=== PATIENT | female | born 1935 | race Caucasian/White ===

== ENCOUNTER 2020-02-25 08:59 | Inpatient (IN) | payer MEDICARE, OTHER, SELFPAY ==
[2020-02-25] VITALS (26 sets, daily range): BP systolic 105–178; BP diastolic 44–68; PULSE 57–89; RESP 15–23; TEMP 36.3–39.2; O2SAT 92–100; BMI 24.3
--- NOTE | 2020-02-25 09:21 | XR_ITS ---
WS: [id number] EXAM: AP CHEST: PORTABLE UPRIGHT DATE OF EXAM: 02/25/2020, 1005 hours COMPARISON: Chest x-ray from 01/28/2019. HISTORY: Patient is 84 years old with cough and dyspnea.. FINDINGS: The cardiac silhouette is normal in size. The mediastinal contours are similar. Calcified plaque i n the aorta. Hilar regions are normal. Small amount of peribronchial cuffing demonstrated.. The pul monary vascularity is normal. Chronic lung changes are seen. No area of consolidation. No noncalcifi ed pulmonary nodules. There is no effusion or pneumothorax. No acute bony abnormality is seen. Cee gical clips in the left axillary and overlying the left upper abdomen region. In correlation with a C T of the chest from 08/10/2016 these are in the extrathoracic soft tissues of the left breast region. XR/XR chest 1V portable [id number] IMPRESSION: Chronic lung changes. No acute pulmonary disease.
--- NOTE | 2020-02-25 09:21 | ECG_ITS ---
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 Measurements Intervals Valentine Rate: 87 P: 46 TX: 234 QRS: 18 QRSD: 99 T: 33 QT: 293 QTc: 353 Interpretive Statements SINUS RHYTHM WITH FIRST DEGREE AV BLOCK NONSPECIFIC ST & T-WAVE ABNORMALITY Compared to ECG 01/26/2019 15:58:53 First degree AV block now present T-wave abnormality now present Ventricular premature complex(es) no longer present Electronically Signed On 02-25-2020 13:29:03 CDT by Cristhian Harden M.D. [id number] f
--- NOTE | 2020-02-25 09:21 | CT_ITS ---
WS: [id number] CT ABDOMEN AND PELVIS WITH CONTRAST HISTORY: Fever, short of breath and abdominal pain. TECHNIQUE: Imaging performed of the abdomen and pelvis with IV contrast. Single phase imaging of the abdomen. Coronal and sagittal reformats are submitted. All CT scans at [facility] use at least one of these dose optimization techniques: automated exposure control; mA and/or kV adjustment per patient size (includes targeted exams where dose is matched to clinical indication); or iterativ e reconstruction. IV CONTRAST: Visipaque 320; 95 mL IV. Oral contrast: No DLP: 681.61 mGy.cm COMPARISON: 12/05/2017 Lower thorax: Mild dependent changes and subsegmental areas of atelectasis at the lung bases. Mild en largement of the heart chambers. Small hiatal hernia. Liver/biliary system: Normal size with no intrahepatic dilatation. Gallbladder: Mild distention of the gallbladder. No stones identified by CT. No wall thickening or in flammation. Pancreas: Mild atrophy of the pancreas with mild duct dilatation. No adjacent inflammation. Spleen: Normal. Adrenal glands: Normal. Right kidney: Diffuse renal atrophy with numerous renal cysts of various sizes. No obstruction. Left kidney: Diffuse renal atrophy with numerous renal cysts. Small extrarenal pelvis. No obstruction . Aorta: Normal. Lymphadenopathy: None. Free fluid: There is a small amount of free fluid in the pelvis. GI tract: There is no GI tract obstruction. The appendix is partially visualized and normal. There are several small foci of free air within the peritoneal cavity, greatest in the LEFT upper abd omen. There is a tract of air extending through the fundus of the stomach. Abdominal wall: Thinning of the anterior abdominal wall. Pelvis: Air in the urinary bladder. Urinary bladder is distended but no Paula catheter is present. Ma y be due to recent catheterization. There is also peritoneal dialysis catheter coiled in the pelvis. Bones: Advanced degenerative changes in the lumbar spine. Prior fixation hardware from L4 to S1 bilat erally. Prior LEFT hip arthroplasty. Notified Obinna Fletcher DO at 02/25/2020 11:[address]/CT abdomen pelvis w con* [id number] IMPRESSION: 1. Small amount of intraperitoneal free air left upper abdomen suspicious for perforation at the fundus of the stomach. Patient does have peritoneal dialysi s catheter in the area could potentially be from manipulation of the catheter b ut favor visceral perforation. 2. Small amount of free fluid in the pelvis. 3. Bilateral renal atrophy with numerous bilateral renal cysts. 4. Dialysis catheter coiled in the pelvis. 5. Air in the urinary bladder. May be due to recent instrumentation or cystiti s.
--- NOTE | 2020-02-25 09:23 | W.ED.SOB ---
HPI - SOB/Dyspnea General: Chief Complaint: Shortness of Breath/Dyspnea Stated Complaint: FEVER, SOB NECK PAIN Time Seen by Provider: 02/25/20 09:06 History of Present Illness: HPI Narrative: 84-year-old female who presents emergency room from a local assisted living care. She was nauseated sick to her stomach with mild abdominal pain and vomiting along with a fever. She arrived here temperatures up to 102. She has also had a little bit of a cough. She is not had any bloody diarrhea or bloody emesis. She has has end-stage renal disease and has been using peritoneal dialysis. She still does make some urine although she has not had any dysuria urgency or frequency. She is not had any recent hospitalization she has been quarantined at the [facility] however 1 week ago they began allowing visitors. MD elicited complaint: cough Pertinent past history: other (End-stage renal disease with peritoneal dialysis) Onset (ago): hour(s) Timing: constant Severity: moderate Exacerbating factors: exertion and coughing Relieving factors: nothing Associated symptoms: Reports abdominal pain, cough, fever(s), nausea and vomiting; Deny chest congestion, chest pain, diaphoresis, dizziness, extremity pain, hemoptysis, lightheadedness, myalgias, orthopnea, palpitations, paresthesias, polydipsia, polyuria, rash, sense of impending doom or syncope Treatment prior to arrival: none Review of Systems Const: Reports: fever(s); Denies: diaphoresis ENMT: Denies: throat pain, ear or mastoid pain, nasal discharge or nasal congestion Card: Denies: chest pain, palpitations, lightheadedness, syncope or orthopnea Resp: Denies: hemoptysis or chest congestion GI: Reports: abdominal pain, nausea and vomiting : Denies: flank pain, difficulty voiding, dysuria, urinary frequency or urinary urgency Musc: Denies: extremity pain Skin/Breast: Denies: rash or pruritus Neuro: Denies: dizziness Endo: Denies: polyuria or polydipsia PFS ED PFSH: Medical History Anemia of chronic disease Anxiety and depression DDD (degenerative disc disease) Diastolic CHF ESRD (end stage renal disease) On Peritoneal dialysis Fibromyalgia GERD (gastroesophageal reflux disease) History of breast cancer Previously followed by Dr. Santoyo History of pulmonary embolus (PE) 08/2016 History of stroke 11/14/16 Hyperlipidemia Hypertension Lumbar spinal stenosis Osteoarthritis Paroxysmal A-fib Peritoneal dialysis catheter in place Restrictive lung disease Surgical History History of back surgery History of esophagogastroduodenoscopy (EGD) 08/03/17 mild gastritis and duodenitis History of hemiarthroplasty of left hip 11/18/18: Dr. Mendoza History of hysterectomy History of lumpectomy of left breast History of right cataract surgery Family History Other Cancer Denies family history of Anesthesia complication Bleeding disorder Social History Smoking and tobacco status: never smoked Second hand smoke exposure: No Alcohol intake: never Adopted: No Caregiver/support person: Yes Lives independently: Yes Housing: Assisted Living Facility Marital status: Marital status details: with dementia Additional social history: FULL CODE DISCUSSED WITH PATIENT ON 02/04/20 Physical Exam Const: COMMON NORMALS: no acute distress GENERAL APPEARANCE: cooperative and comfortable ORIENTATION/CONSCIOUSNESS: Yes awake, Yes oriented to person, Yes oriented to place and Yes oriented to time HENMT: COMMON NORMALS: normocephalic and atraumatic HEAD & SCALP: normocephalic and atraumatic Eye: COMMON NORMALS: Equal, round and reactive pupils present, EOMs intact bilaterally, conjunctivae normal and no scleral icterus CONJUNCTIVA: Yes conjunctivae normal PUPIL: Yes Equal, round and reactive pupils present Neck/C-Spine: COMMON NORMALS: full ROM, no lymphadenopathy, supple and no JVD Lymph: LYMPHATIC: no lymphadenopathy noted and no lymphedema noted Resp: COMMON NORMALS: normal respiratory effort, No retractions, No use of accessory muscles and clear to auscultation bilaterally AUSCULTATION: clear to auscultation bilaterally Cardio: COMMON NORMALS: no JVD, regular rate, regular rhythm and No murmurs present (Cardio) RATE: regular rate RHYTHM: regular rhythm GI: COMMON NORMALS: Soft to palpation and No hepatosplenomegaly present AUSCULTATION: Yes normoactive bowel sounds PALPATION: Yes Soft to palpation, Yes Tenderness to palpation present (GI), No Guarding due to palpation present (GI) (No rebound.) and Yes No hepatosplenomegaly present Extremity: COMMON NORMALS: normal to inspection, capillary refill normal, no clubbing, cyanosis or edema, no calf tenderness and no pedal edema Neuro: SENSORIUM/ORIENTATION: Yes oriented to person, Yes oriented to place and Yes oriented to time Skin: COMMON NORMALS: no rashes or lesions noted GENERAL SKIN EXAM: no rashes or lesions noted Course Vital Signs: Vital signs: Vital Signs Temperature 100.9 F H 02/26/20 03:17 Pulse Rate 62 02/26/20 06:00 Respiratory Rate 36 H 02/26/20 06:00 Blood Pressure 117/54 02/26/20 06:00 Pulse Oximetry 98 02/26/20 06:00 MDM - SOB/Dyspnea MDM Narrative: Medical decision making narrative: Initial CT of the abdomen shows small amounts of free air within the abdomen. Discussed with Dr. Castaneda also because Dr. Carias. Dr. Carias has asked that we repeat the abdominal CT with p.o. contrast which again showed free small amounts of free air but no perforation in the stomach. Will admit the patient to the ICU IV antibiotics been started Dr. Avendaño and Dr. Castaneda is seen the patient in the emergency room. Lab Data: Labs: Lab Results 02/25/20 02/25/20 02/25/20 Range/Units 08:45 08:45 09:24 WBC 5.7 (4.0-10.0) 10^3/ uL RBC 3.37 L (4.1-5.3) 10^6/u L Hgb 11.6 (11.5-15.3) g/dL Hct 35.3 L (37.0-47.0) % MCV 104.7 H (81-99) fL MCH 34.4 H (28.0-34.0) pg MCHC 32.9 (30.0-36.0) g/dL RDW 13.6 (12.1-15.1) % Plt Count 156 (130-400) 10^3/c mm MPV 10.5 H (7.4-10.4) fL Neut % (Auto) 92.3 % Lymph % (Auto) 4.4 % Mcdowell % (Auto) 0.5 % Eos % (Auto) 1.9 % Baso % (Auto) 0.5 % Neut # (Auto) 5.25 (1.8-7.7) 10^3/u L Lymph # (Auto) 0.3 L (0.8-4.8) 10^3/u L Mcdowell # (Auto) 0.0 L (0.2-0.9) 10^3/u L Eos # (Auto) 0.1 (0.0-0.8) 10^3/u L Baso # (Auto) 0.0 (0.0-0.1) 10^3/u L Nucleated RBC % (a uto) 0 % Nucleated RBCs # 0.0 /100WBC Specimen Type Sample Site ABG pH (7.35-7.45) ABG pCO2 (35-45) mmHg ABG pO2 (80.0-100.0) mmH g ABG HCO3 (22-26) mmol/L ABG O2 Saturation ABG Base Excess (-2.0-2.0) mmol/ L Eddi Test Hematocrit (37-47) % Hgb O2 Saturation (95-100) % Carboxyhemoglobin (0.4-20.1) %THgb Methemoglobin (0.4-1.5) % Total Hemoglobin (12-16) g/dL Ionized Calcium (1.1-1.4) mmol/L O2 Delivery Device O2 Liters/Min % Fabrication Supervisor ID Sodium 134 L (136-145) mmol/L Potassium 3.7 (3.5-5.1) mmol/L Chloride 92 L (98-107) mmol/L Carbon Dioxide 32 H (22-29) mmol/L Anion Gap 13.7 (5-19) BUN 45 H (8-23) mg/dL Creatinine 4.5 H (0.5-0.9) mg/dL GFR Calculation Not Reportable Glucose 116 H (65-115) mg/dL Calculated Osmolal ity 277 L (285-295) mOsm/k g Lactic Acid (0.5-2.2) mmol/L Calcium 9.0 (8.5-10.5) mg/dL Magnesium 1.8 (1.7-2.3) mg/dL Total Bilirubin 0.4 (0.15-1.2) mg/dL AST 15 (0-32) U/L ALT 12 (0-33) U/L Alkaline Phosphata se 59 (35-105) IU/L Creatine Kinase 109 (26-192) U/L Total Protein 6.7 (6.6-8.7) g/dL Albumin 3.6 (3.5-5.2) g/dL Globulin 3.1 (1.3-4.6) g/dL Lipase 24 (13-60) U/L Urine Color Yellow (Yellow) Urine Appearance Cloudy (CLEAR) Urine pH 5 (5-7) Ur Specific Gravit y 1.010 (1.005-1.030) Urine Protein Trace (Negative) Urine Glucose (UA) Norm (Normal) Urine Ketones Negative (Negative) Urine Blood Neg (Negative) Urine Nitrate Negative (Negative) Urine Bilirubin Neg (NEGATIVE) Urine Urobilinogen Norm (Negative) mg/dL Ur Leukocyte Jennifer ase 2+ H (Negative) Urine RBC 0-4 H (0-2) /hpf Urine WBC 55-80 H (0-5) /hpf Ur Squamous Epith Cells 5-10 H (0-5) Ur Transition Epit h Cell 0-4 /hpf Amorphous Sediment Not Reportable Urine Bacteria 3+ H (NONE) SARS-CoV-2 Ag (Rap id) (Negative) 02/25/20 02/25/20 02/25/20 Range/Units 09:27 09:28 09:30 WBC (4.0-10.0) 10^3/ uL RBC (4.1-5.3) 10^6/u L Hgb (11.5-15.3) g/dL Hct (37.0-47.0) % MCV (81-99) fL MCH (28.0-34.0) pg MCHC (30.0-36.0) g/dL RDW (12.1-15.1) % Plt Count (130-400) 10^3/c mm MPV (7.4-10.4) fL Neut % (Auto) % Lymph % (Auto) % Mcdowell % (Auto) % Eos % (Auto) % Baso % (Auto) % Neut # (Auto) (1.8-7.7) 10^3/u L Lymph # (Auto) (0.8-4.8) 10^3/u L Mcdowell # (Auto) (0.2-0.9) 10^3/u L Eos # (Auto) (0.0-0.8) 10^3/u L Baso # (Auto) (0.0-0.1) 10^3/u L Nucleated RBC % (a uto) % Nucleated RBCs # /100WBC Specimen Type Arterial Sample Site Radial, left ABG pH 7.43 (7.35-7.45) ABG pCO2 47.0 H (35-45) mmHg ABG pO2 135.0 H (80.0-100.0) mmH g ABG HCO3 31.5 H (22-26) mmol/L ABG O2 Saturation 99.3 ABG Base Excess 6.3 H (-2.0-2.0) mmol/ L Eddi Test Pos Hematocrit 33.7 L (37-47) % Hgb O2 Saturation 97.6 (95-100) % Carboxyhemoglobin 0.8 (0.4-20.1) %THgb Methemoglobin 1.0 (0.4-1.5) % Total Hemoglobin 11.0 L (12-16) g/dL Ionized Calcium 1.1 (1.1-1.4) mmol/L O2 Delivery Device Nc O2 Liters/Min 2.0 % Fabrication Supervisor ID Anonymous Sodium 134.0 (136-145) mmol/L Potassium 3.0 L (3.5-5.1) mmol/L Chloride (98-107) mmol/L Carbon Dioxide (22-29) mmol/L Anion Gap (5-19) BUN (8-23) mg/dL Creatinine (0.5-0.9) mg/dL GFR Calculation Glucose 103.0 (65-115) mg/dL Calculated Osmolal ity (285-295) mOsm/k g Lactic Acid 1.0 (0.5-2.2) mmol/L Calcium (8.5-10.5) mg/dL Magnesium (1.7-2.3) mg/dL Total Bilirubin (0.15-1.2) mg/dL AST (0-32) U/L ALT (0-33) U/L Alkaline Phosphata se (35-105) IU/L Creatine Kinase (26-192) U/L Total Protein (6.6-8.7) g/dL Albumin (3.5-5.2) g/dL Globulin (1.3-4.6) g/dL Lipase (13-60) U/L Urine Color (Yellow) Urine Appearance (CLEAR) Urine pH (5-7) Ur Specific Gravit y (1.005-1.030) Urine Protein (Negative) Urine Glucose (UA) (Normal) Urine Ketones (Negative) Urine Blood (Negative) Urine Nitrate (Negative) Urine Bilirubin (NEGATIVE) Urine Urobilinogen (Negative) mg/dL Ur Leukocyte Jennifer ase (Negative) Urine RBC (0-2) /hpf Urine WBC (0-5) /hpf Ur Squamous Epith Cells (0-5) Ur Transition Epit h Cell /hpf Amorphous Sediment Urine Bacteria (NONE) SARS-CoV-2 Ag (Rap id) Negative (Negative) Discharge Plan Discharge Admit Provider: Mirian Castaneda Condition: Stable Discharge Date/Time: 02/25/20 14:36 Coding Level of Care Code ED Mitochondrial Disorders Counselor for Chg Fwd Exam Comprehensive
[2020-02-25 09:39] LABS: Basophils % 0.5 %; Eosinophils # 0.1 10^3/uL (0.0-0.8); Eosinophils % 1.9 %; Hematocrit 35.3 % (37.0-47.0); Hemoglobin 11.6 g/dL (11.5-15.3); Lymphocytes # 0.3 10^3/uL (0.8-4.8); Lymphocytes % 4.4 %; Mean Corpuscular HGB Conc 32.9 g/dL (30.0-36.0); Mean Corpuscular Hemoglobin 34.4 pg (28.0-34.0); Mean Corpuscular Volume 104.7 fL (81-99); Mean Platelet Volume 10.5 fL (7.4-10.4); Monocytes % 0.5 %; Neutrophils # 5.25 10^3/uL (1.8-7.7); Neutrophils % 92.3 %; Nucleated Red Blood Cells % 0 %; Platelet Count 156 10^3/cmm (130-400); Red Blood Count 3.37 10^6/uL (4.1-5.3); Red Cell Distribution Width 13.6 % (12.1-15.1); White Blood Count 5.7 10^3/uL (4.0-10.0)
[2020-02-25 09:44] LABS: ABG PH Result 7.43 (7.35-7.45); Arterial Blood Gas Hematocrit 33.7 % (37-47); Base Excess ABG 6.3 mmol/L (-2.0-2.0); Blood Gas Allen Test Pos; Blood Gas Operator Identificat Anonymous; Blood Gas Sample Site Radial, left; Blood Gas Sample Type Arterial; Carboxyhemoglobin 0.8 %THgb (0.4-20.1); HCO3 ABG 31.5 mmol/L (22-26); HGB O2 Sat 97.6 % (95-100); Ionized Calcium Level - ABG 1.1 mmol/L (1.1-1.4); Oxygen Device NC; Oxygen Saturation ABG 99.3
[2020-02-25 09:46] LABS: Alanine Aminotransferase 12 U/L (0-33); Albumin Level 3.6 g/dL (3.5-5.2); Alkaline Phosphatase 59 IU/L (35-105); Anion Gap 13.7 (5-19); Aspartate Amino Transferase 15 U/L (0-32); Blood Urea Nitrogen 45 mg/dL (8-23); Carbon Dioxide 32 mmol/L (22-29); Chloride 92 mmol/L (98-107); Creatine Phosphokinase 109 U/L (26-192); Globulin 3.1 g/dL (1.3-4.6); Glucose 116 mg/dL (65-115); Lipase 24 U/L (13-60); Magnesium 1.8 mg/dL (1.7-2.3); Osmolality Calculated 277 mOsm/kg (285-295); Potassium 3.7 mmol/L (3.5-5.1); Sodium 134 mmol/L (136-145); Total Bilirubin 0.4 mg/dL (0.15-1.2); Total Protein 6.7 g/dL (6.6-8.7)
[2020-02-25] MEDS: acetaminophen 500 mg Tablet 1000 MG PO (09:47)
[2020-02-25] MEDS: ondansetron 2 mg/ML SDV 2 mL 4 MG IVP (09:47)
[2020-02-25 09:54] LABS: Add Urine Microscopic? YES; Bilirubin Urine Neg (NEGATIVE); Blood Urine Neg (Negative); Glucose Urine UA Norm (Normal); Ketones Urine Negative (Negative); Leukocyte Esterase Urine 2+ (Negative); Nitrate Urine Negative (Negative); Protein Urine Trace (Negative); Urine Appearance Cloudy (CLEAR); Urine Color Yellow (Yellow); Urobilinogen Urine Norm (Negative); pH Urine 5 (5-7)
[2020-02-25 09:55] LABS: RBC Urine 0-4 /hpf (0-2)
[2020-02-25 09:56] LABS: Bacteria Urine 3+; Transitional Epi Cells Urine 0-4 /hpf; WBC Urine 55-80 /hpf (0-5)
[2020-02-25 09:57] LABS: Add Urine Culture? Yes
[2020-02-25 10:24] LABS: SARS Covid-2 Antigen Negative (Negative)
[2020-02-25] MEDS: iodixanol 320 mg/mL 100mL Btl IV (10:35)
--- NOTE | 2020-02-25 11:49 | CT_ITS ---
WS: [id number] CT ABDOMEN WITH oral CONTRAST HISTORY: perforation stomach Contiguous single phase 5 mm axial imaging performed to the abdomen. Oral contrast has been provided. Coronal and sagittal reformats are submitted. All CT scans at [facility] use at least on e of these dose optimization techniques: automated exposure control; mA and/or kV adjustment per carlos ent size (includes targeted exams where dose is matched to clinical indication); or iterative reconst ruction. CONTRAST: No additional IV contrast given. DLP: 452.46 mGy.cm COMPARISON: Study earlier the same day. Lower thorax: Dependent changes and atelectasis at the lung bases. Additional imaging was obtained to evaluate for possible contrast extravasation from the stomach. The re is good distention of the stomach with oral contrast. No active contrast extravasation from the st omach. There are still a few small foci of air in the LEFT upper abdomen but they have not increased in number. CT/CT abdomen wo con [id number] IMPRESSION: 1. No active extravasation of oral contrast from the stomach. 2. There is still a few small foci of air in the LEFT upper abdomen. Visceral perforation is likely, the exact etiology is not certain but thought to be the stomach.
[2020-02-25] MEDS: iohexol 300 mg/mL 50 mL Btl PO (12:29)
--- NOTE | 2020-02-25 14:02 | PM.HP ---
Providers/Chief Complaint Admitting Physician: Mirian Castaneda DO Primary Care Provider: Gunnar Winn DO Chief Complaint: FEVER, SOB NECK PAIN History of Present Illness Milla Thomas is a 84 year old female with a past medical history of end-stage renal disease on peritoneal dialysis, hypertension, chronic pain on daily opioids and GERD that presented to the emergency department today from the assisted living facility due to increasing abdominal pain, generalized malaise and fever. Patient reported that her symptoms started yesterday she stated that she began having abdominal pain as well as nausea vomiting. She stated she continued to have vomiting this morning but due to inability to keep down any oral fluids or food she was having dry heaves. Patient was noted to have a temperature of 99 degrees [facility] the [facility], 102 ?F while patient was in the emergency department. She is on peritoneal dialysis and last dialysis session was last night. Patient reports some vague abdominal discomfort mostly in the lower abdomen, centrally located. Reports that she was initially having trouble with constipation was given MiraLAX yesterday and then has had diarrhea since that time. She denies any sick contacts, has recently been on quarantine at the assisted living facility as everyone has been tested for COVID, her testing returned negative last week. Only visitor in the past week has been her son whom she visited with outside. Patient was seen and evaluated in the emergency department noted to have concern for free air in the abdomen, general surgeon was consulted. Patient was noted to have a fever of 102 ?F with concern for urinary tract infection but also concern for the possibility of peritonitis, given Rocephin. Review of Systems Const: Reports: fever(s), body aches and malaise; Denies: chills Eyes: Denies: change in vision ENMT: Denies: nasal congestion Card: Denies: chest pain, palpitations or edema Resp: Denies: dyspnea, productive cough or hemoptysis GI: Reports: abdominal pain, nausea, vomiting and diarrhea; Denies: constipation, hematochezia or melena : Reports: dysuria; Denies: hematuria Musc: Denies: extremity pain or muscle cramps Skin/Breast: Denies: rash or new lesions Neuro: Denies: headache(s) or dizziness Psych: Denies: anxiety or depression Endo: Denies: polyuria or hot flashes Tino/Lymph: Denies: easy bruising or easy bleeding Medications/Allergies Home Medications Medication Instructions Recorded Confirmed Last Taken Type acetaminophen 325 mg tablet 650 mg PO Q4H PRN 11/13/19 02/25/20 Unknown History alprazolam 0.25 mg tablet 0.25 mg PO BEDTIME PRN 11/13/19 02/25/20 02/24/20 History bisacodyl 10 mg rectal suppository 10 mg IA DAILY PRN 11/13/19 02/25/20 Unknown History bumetanide 1 mg tablet 2 mg PO BID 11/13/19 02/25/20 02/24/20 History carisoprodol 350 mg tablet 350 mg PO BID PRN tab 11/13/19 02/25/20 02/24/20 History carvedilol 25 mg tablet 50 mg PO BID 11/13/19 02/25/20 02/24/20 History citalopram 10 mg tablet 10 mg PO DAILY 11/13/19 02/25/20 02/24/20 History clonidine HCl 0.1 mg tablet 0.1 mg PO DAILY PRN tab 11/13/19 02/25/20 Unknown History docusate sodium 100 mg capsule 200 mg PO BEDTIME 11/13/19 02/25/20 02/24/20 History ipratropium 0.5 mg-albuterol 3 mg 3 ml INHALATION Q4H PRN 11/13/19 02/25/20 Unknown History (2.5 mg base)/3 mL nebulization soln isosorbide mononitrate 30 mg 30 mg PO DAILY 11/13/19 02/25/20 02/24/20 History tablet,extended release 24 hr nystatin 100,000 unit/gram topical 1 applic TOPICAL BID 11/13/19 02/25/20 Unknown History powder pantoprazole 40 mg tablet,delayed 40 mg PO BID tab 11/13/19 02/25/20 02/24/20 History release polyethylene glycol 3350 17 17 gm PO DAILY 11/13/19 02/25/20 02/24/20 History gram/dose oral powder potassium chloride 20 mEq 20 meq PO BID 11/13/19 02/25/20 02/24/20 History tablet,extended release promethazine 12.5 mg rectal 12.5 mg IA Q8H PRN 11/13/19 02/25/20 Unknown History suppository verapamil 180 mg tablet,extended 180 mg PO DAILY 11/13/19 02/25/20 02/24/20 History release hydrocodone 7.5 mg-acetaminophen 1 tab PO Q4H PRN 30 Days #180 tab 02/22/20 02/25/20 Unknown Rx 325 mg tablet oxycodone 20 mg tablet,crush 20 mg PO Q12H 30 Days #60 tab 02/22/20 02/25/20 02/24/20 Rx resistant,extended release 12 hr Lactobac. rhamnosus GG-inulin 1 cap PO DAILY 02/25/20 02/25/20 02/24/20 History [[facility]] Tucks Pads See Rx Instructions .ROUTE .COMPLEX 02/25/20 02/25/20 Unknown History apixaban [Eliquis] 2.5 mg PO BID 02/25/20 02/25/20 02/24/20 History metolazone 5 mg PO EVERY OTHER DAY 02/25/20 02/25/20 02/24/20 History ondansetron 8 mg PO TID 02/25/20 02/25/20 02/25/20 08:00 History phenyleph-shark oil-cocoa butr 1 supp IA PRN 02/25/20 02/25/20 Unknown History [Hemorrhoidal] simethicone See Rx Instructions .ROUTE .COMPLEX 02/25/20 02/25/20 Unknown History sodium phosphates [Enema] 118 ml IA DAILY PRN 02/25/20 02/25/20 Unknown History sorbitol See Rx Instructions .ROUTE .COMPLEX 02/25/20 02/25/20 Unknown History vit B comp no.9-chqnj-C-biotin 1 tab PO DAILY 02/25/20 02/25/20 02/24/20 History [[facility]] Allergies Allergy/AdvReac Type Severity Reaction Status Date / Time amitriptyline [From Elavil] Allergy Unknown Unknown Verified 02/25/20 14:08 cyclobenzaprine Allergy Unknown Unknown Verified 02/25/20 14:08 [From Flexeril] doxycycline Allergy Unknown Unknown Verified 02/25/20 14:08 Penicillins Allergy Unknown Unknown Verified 02/25/20 14:08 pentazocine [From Talwin] Allergy Unknown Unknown Verified 02/25/20 14:08 pregabalin [From Lyrica] Allergy Unknown Unknown Verified 02/25/20 14:08 tizanidine Allergy Unknown Unknown Verified 02/25/20 14:08 morphine Allergy Unknown Verified 02/25/20 14:08 PFSH Acute PFSH: Medical History Anemia of chronic disease Anxiety and depression DDD (degenerative disc disease) Diastolic CHF ESRD (end stage renal disease) On Peritoneal dialysis Fibromyalgia GERD (gastroesophageal reflux disease) History of breast cancer Previously followed by Dr. Santoyo History of pulmonary embolus (PE) 08/2016 History of stroke 11/14/16 Hyperlipidemia Hypertension Lumbar spinal stenosis Osteoarthritis Paroxysmal A-fib Peritoneal dialysis catheter in place Restrictive lung disease Surgical History History of back surgery History of esophagogastroduodenoscopy (EGD) 08/03/17 mild gastritis and duodenitis History of hemiarthroplasty of left hip 11/18/18: Dr. Mendoza History of hysterectomy History of lumpectomy of left breast History of right cataract surgery Family History Other Cancer Denies family history of Anesthesia complication Bleeding disorder Social History Smoking and tobacco status: never smoked Second hand smoke exposure: No Alcohol intake: never Adopted: No Caregiver/support person: Yes Lives independently: Yes Housing: Assisted Living Facility Marital status: Marital status details: with dementia Additional social history: FULL CODE DISCUSSED WITH PATIENT ON 02/04/20 Vitals/I&O/Wt Last Vital Signs Temp 100.2 F H 02/25/20 10:31 Pulse 73 02/25/20 13:16 Resp 20 H 02/25/20 13:16 BP 126/63 02/25/20 13:16 Pulse Ox 94 02/25/20 13:16 Weight last 48 hrs Weight 64.41 kg Physical Exam Const: COMMON NORMALS: patient oriented x3 and alert GENERAL APPEARANCE: cooperative ORIENTATION/CONSCIOUSNESS: Yes awake, Yes oriented to person, Yes oriented to place and Yes oriented to time HENMT: COMMON NORMALS: normocephalic and atraumatic HEAD & SCALP: normocephalic and atraumatic Eye: COMMON NORMALS: Equal, round and reactive pupils present PUPIL: Yes Equal, round and reactive pupils present Neck/C-Spine: COMMON NORMALS: supple GENERAL: Yes normal visual inspection Resp: COMMON NORMALS: normal respiratory effort and clear to auscultation bilaterally EFFORT & INSPECTION: Yes able to speak in complete sentences AUSCULTATION: clear to auscultation bilaterally, no rhonchi and no wheezes Cardio: COMMON NORMALS: regular rate, regular rhythm and No murmurs present (Cardio) RATE: regular rate RHYTHM: regular rhythm GI: OTHER: Soft, tenderness to palpation in the suprapubic region, no guarding or rigidity, normal bowel sounds, PD catheter in place with no surrounding erythema, no appreciable drainage : COMMON NORMALS: Yes no CVA tenderness BLADDER/KIDNEY EXAM: Yes no CVA tenderness Back/Pelvis: COMMON NORMALS: no CVA tenderness Extremity: COMMON NORMALS: no calf tenderness NARRATIVE EXTREMITY EXAM: 1+ pitting edema in the lower extremities bilaterally, negative Homans sign in the lower extremities bilaterally Neuro: COMMON NORMALS: patient oriented x3, CN's II-XII intact bilaterally, moves all extremities and no focal motor deficits SENSORIUM/ORIENTATION: Yes alert, Yes oriented to person, Yes oriented to place and Yes oriented to time SPEECH: speech normal Psych: COMMON NORMALS: mental status grossly normal and cooperative Skin: COMMON NORMALS: no rashes or lesions noted GENERAL SKIN EXAM: no rashes or lesions noted Urinary Catheter Management^: Paula: Cath Placed During This Visit: no Reason for Continuing Indwelling Catheter: Other Data : 02/25/20 08:45 02/25/20 08:45 Micro: Microbiology 02/25/20 09:27 Blood Culture - Preliminary Blood SPECIMEN COLLECTED 02/25/20 09:27 Blood Culture - Preliminary Blood SPECIMEN COLLECTED A&P Assessment and plan (1) Abdominal pain: Initial CT scan showing free air in the abdomen, this could be due to peritoneal dialysis, general surgeon consulted, appreciate recommendations and assistance in patient's care. Gastrografin study showed no extravasation of contrast, however concerned that may have visceral perforation, will follow up with surgical recommendations. Continue close monitoring in the ICU until that time Patient has suprapubic tenderness with concern for acute cystitis in the setting of end-stage renal disease on peritoneal dialysis. Initially on presentation had thousand milliliters of fluid in her bladder. History of Klebsiella, Proteus and E. coli, and enterococcus and prior urine cultures. Given Rocephin in the ED, will start on Primaxin. Question of peritonitis, orders for fluid collection and culture Status: Acute (2) Acute cystitis: Continue with IV antibiotics, plan as above At thousand milliliters of urine in the bladder at time of admission to the ED, Paula catheter placed Status: Acute (3) ESRD (end stage renal disease): On peritoneal dialysis Nephrology consulted, appreciate recommendations and assistance in patient's care Status: Acute (4) Diastolic CHF: Without acute exacerbation, continue close monitoring with strict intake and output as well as daily weights Status: Acute (5) Fibromyalgia: With chronic pain on daily opioids, continue home medications Status: Acute (6) Lumbar spinal stenosis: Status: Acute (7) Anxiety and depression: Status: Acute Additional A&P Information History of paroxysmal atrial fibrillation: Holding home Eliquis, holding all anticoagulation until surgical evaluation, then start on anticoagulation as deemed appropriate by surgery services History of pulmonary embolism in 2017 Prior history of CVA Hypertension: Blood pressures remained stable at this time Hyperlipidemia Restrictive lung disease DVT prophylaxis: SCDs, no pharmacologic prophylaxis at this time until surgical evaluation Diet: N.p.o. until surgical evaluation CODE STATUS: Full code Attestations Medical Necessity Statement*: Patient requires hospitalization due to fever with concern for abdominal pain acute cystitis with intra-abdominal air and question of peritonitis requiring IV antibiotics. 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
--- NOTE | 2020-02-25 14:05 | PM.CONSULT ---
Providers/Reason For Consult Consulting Physican/Specialty*: Ruslan Carias MD Reason for Consult*: Abdominal pain with concern of perforated viscus Attending Physician: Mirian Castaneda DO Primary Care Provider: Gunnar Winn DO History of Present Illness History of Present Illness Chief Complaint: My tummy hurts History of present illness: Milla Thomas is a 84 year old female well known to me from previous clinical encounter were I did place a laparoscopic peritoneal dialysis catheter in the past, patient does have associated multiple medical comorbidities, presented to the emergency department with worsening abdominal pain that started yesterday, patient describes her pain mostly in the lower abdomen and she was diagnosed with urinary tract infection and got admitted to the hospitalist service yet in the interim with the work-up a CT scan of the abdomen and pelvis that was done and showed: 1. Small amount of intraperitoneal free air left upper abdomen suspicious for perforation at the fundus of the stomach. Patient does have peritoneal dialysis catheter in the area could potentially be from manipulation of the catheter but favor visceral perforation. 2. Small amount of free fluid in the pelvis. 3. Bilateral renal atrophy with numerous bilateral renal cysts. 4. Dialysis catheter coiled in the pelvis. 5. Air in the urinary bladder. May be due to recent instrumentation or cystitis. General surgery was consulted for further evaluation and I elected to repeat a CT scan with oral contrast of the abdomen and pelvis that showed; 1. No active extravasation of oral contrast from the stomach. 2. There is still a few small foci of air in the LEFT upper abdomen. Visceral perforation is likely, the exact etiology is not certain but thought to be the stomach. Patient denies history of peptic ulcer disease and she is undergone an EGD before few years and according to her description there was nothing much going on, patient is currently in the emergency department when I evaluated her she does report history of vomiting yesterday but no hematemesis and most of her complaints are towards the lower abdomen that is consistent with a UTI. Review of Systems General: Reports: 10 or more systems reviewed and unremarkable except in HPI and below Meds/Allergies Home Medications and Allergies Home Medications Medication Instructions Recorded Confirmed Last Taken Type acetaminophen 325 mg tablet 650 mg PO Q4H PRN 11/13/19 02/25/20 Unknown History alprazolam 0.25 mg tablet 0.25 mg PO BEDTIME PRN 11/13/19 02/25/20 02/24/20 History bisacodyl 10 mg rectal suppository 10 mg OK DAILY PRN 11/13/19 02/25/20 Unknown History bumetanide 1 mg tablet 2 mg PO BID 11/13/19 02/25/20 02/24/20 History carisoprodol 350 mg tablet 350 mg PO BID PRN tab 11/13/19 02/25/20 02/24/20 History carvedilol 25 mg tablet 50 mg PO BID 11/13/19 02/25/20 02/24/20 History citalopram 10 mg tablet 10 mg PO DAILY 11/13/19 02/25/20 02/24/20 History clonidine HCl 0.1 mg tablet 0.1 mg PO DAILY PRN tab 11/13/19 02/25/20 Unknown History docusate sodium 100 mg capsule 200 mg PO BEDTIME 11/13/19 02/25/20 02/24/20 History ipratropium 0.5 mg-albuterol 3 mg 3 ml INHALATION Q4H PRN 11/13/19 02/25/20 Unknown History (2.5 mg base)/3 mL nebulization soln isosorbide mononitrate 30 mg 30 mg PO DAILY 11/13/19 02/25/20 02/24/20 History tablet,extended release 24 hr nystatin 100,000 unit/gram topical 1 applic TOPICAL BID 11/13/19 02/25/20 Unknown History powder pantoprazole 40 mg tablet,delayed 40 mg PO BID tab 11/13/19 02/25/20 02/24/20 History release polyethylene glycol 3350 17 17 gm PO DAILY 11/13/19 02/25/20 02/24/20 History gram/dose oral powder potassium chloride 20 mEq 20 meq PO BID 11/13/19 02/25/20 02/24/20 History tablet,extended release promethazine 12.5 mg rectal 12.5 mg OK Q8H PRN 11/13/19 02/25/20 Unknown History suppository verapamil 180 mg tablet,extended 180 mg PO DAILY 11/13/19 02/25/20 02/24/20 History release hydrocodone 7.5 mg-acetaminophen 1 tab PO Q4H PRN 30 Days #180 tab 02/22/20 02/25/20 Unknown Rx 325 mg tablet oxycodone 20 mg tablet,crush 20 mg PO Q12H 30 Days #60 tab 02/22/20 02/25/20 02/24/20 Rx resistant,extended release 12 hr Lactobac. rhamnosus GG-inulin 1 cap PO DAILY 02/25/20 02/25/20 02/24/20 History [[facility]] Tucks Pads See Rx Instructions .ROUTE .COMPLEX 02/25/20 02/25/20 Unknown History apixaban [Eliquis] 2.5 mg PO BID 02/25/20 02/25/20 02/24/20 History metolazone 5 mg PO EVERY OTHER DAY 02/25/20 02/25/20 02/24/20 History ondansetron 8 mg PO TID 02/25/20 02/25/20 02/25/20 08:00 History phenyleph-shark oil-cocoa butr 1 supp OK PRN 02/25/20 02/25/20 Unknown History [Hemorrhoidal] simethicone See Rx Instructions .ROUTE .COMPLEX 02/25/20 02/25/20 Unknown History sodium phosphates [Enema] 118 ml OK DAILY PRN 02/25/20 02/25/20 Unknown History sorbitol See Rx Instructions .ROUTE .COMPLEX 02/25/20 02/25/20 Unknown History vit B comp no.2-xrgqz-M-biotin 1 tab PO DAILY 02/25/20 02/25/20 02/24/20 History [[facility]] Allergies Allergy/AdvReac Type Severity Reaction Status Date / Time amitriptyline [From Elavil] Allergy Unknown Unknown Verified 02/25/20 14:08 cyclobenzaprine Allergy Unknown Unknown Verified 02/25/20 14:08 [From Flexeril] doxycycline Allergy Unknown Unknown Verified 02/25/20 14:08 Penicillins Allergy Unknown Unknown Verified 02/25/20 14:08 pentazocine [From Talwin] Allergy Unknown Unknown Verified 02/25/20 14:08 pregabalin [From Lyrica] Allergy Unknown Unknown Verified 02/25/20 14:08 tizanidine Allergy Unknown Unknown Verified 02/25/20 14:08 morphine Allergy Unknown Verified 02/25/20 14:08 PFSH Acute PFSH: Medical History Anemia of chronic disease Anxiety and depression DDD (degenerative disc disease) Diastolic CHF ESRD (end stage renal disease) On Peritoneal dialysis Fibromyalgia GERD (gastroesophageal reflux disease) History of breast cancer Previously followed by Dr. Santoyo History of pulmonary embolus (PE) 08/2016 History of stroke 11/14/16 Hyperlipidemia Hypertension Lumbar spinal stenosis Osteoarthritis Paroxysmal A-fib Peritoneal dialysis catheter in place Restrictive lung disease Surgical History History of back surgery History of esophagogastroduodenoscopy (EGD) 08/03/17 mild gastritis and duodenitis History of hemiarthroplasty of left hip 11/18/18: Dr. Mendoza History of hysterectomy History of lumpectomy of left breast History of right cataract surgery Family History Other Cancer Denies family history of Anesthesia complication Bleeding disorder Social History Smoking and tobacco status: never smoked Second hand smoke exposure: No Alcohol intake: never Adopted: No Caregiver/support person: Yes Lives independently: Yes Housing: Assisted Living Facility Marital status: Marital status details: with dementia Additional social history: FULL CODE DISCUSSED WITH PATIENT ON 02/04/20 Vitals/I&O/Wt Last Vital Signs Temp 100.2 F H 02/25/20 10:31 Pulse 73 02/25/20 13:16 Resp 20 H 02/25/20 13:16 BP 126/63 02/25/20 13:16 Pulse Ox 94 02/25/20 13:16 Weight last 48 hrs Weight 142 lb Physical Exam Narrative: EXAM NARRATIVE: Patient is conscious alert oriented X3 BMI 24.4 Head and neck examination PERRLA no masses no cervical lymphadenopathy no jaundice Cardiac examination audible S1-S2 no murmurs no gallops no arrhythmias Chest is clear bilateral,abscence of Rhonchi or wheezes,no surgical emphysema Abdomen nontender except towards the suprapubic region nondistended soft no organomegaly guarding or rigidity/no signs of peritonitis. Dialysis catheter in place without complication Extremities no cyanosis no clubbing no edema Urinary Catheter Management^: Paula: Cath Placed During This Visit: no Reason for Continuing Indwelling Catheter: Other Data Micro: Micro: Microbiology 02/25/20 09:27 Blood Culture - Pr eliminary Blood SPECIMEN EDWIN LUNDY 02/25/20 09:27 Blood Culture - Pr eliminary Blood SPECIMEN [facility] A&P Assessment and plan (1) Abdominal pain: After thorough history physical examination and reviewing the chart and images with my personal interpretation and further discussing the case with Dr. Garcia the radiologist as she does not see evidence of inflammatory process in the stomach yet there is a track of gas bubbles towards the stomach which is from her end concerning for potential perforated proximal gastric ulcer towards the fundus of the stomach. I did discuss in depth and in length with the patient's son and daughter Julissa the indications risks benefits and alternatives and I did offer them a diagnostic laparoscopy possible laparotomy with EGD. They do understand the high risk of potential complications associated with the procedure with her mom's medical comorbidities and active urinary tract infection. They also do understand the conservative measures in the form of PPI therapy and antibiotic management with conservative approach that could medically fail and will end up by deterioration and sepsis septic shock and demise. Family agreed to proceed as well as the patient Informed consent per chart Patient decided Status: Acute Consult Attestations Medical Necessity Statement: Per hospitalist service Time Spent in Patient Care: 16 - 35 minutes (>than 50% of time spent in counselling and/or direct pt care on unit). 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
--- NOTE | 2020-02-25 14:31 | PC.NURSE ---
The patient and family has decided to go the surgical route. Patient will be taken to surgery shortly
--- NOTE | 2020-02-25 14:40 | ANES.PREANE2 ---
Pre-Anesthetic Assessment Pre-Anesthetic Assessment: Height/Weight: Height 1.63 m Weight 64.41 kg Temp Pulse Resp BP Pulse Ox 100.2 F H 73 20 H 126/63 94 02/25/20 10:31 02/25/20 13:16 02/25/20 13:16 02/25/20 13:16 02/25/20 13:16 Preop Diagnosis: Chronic kidney disease Proposed Procedure: Operation Date: 02/25/20 15:00 Proposed Procedures p Laparoscopy(Not Applicable) - Ruslan Carias MD s possible Exploratory Laparotomy(Not Applicable) - Ruslan Carias MD s EGD(Not Applicable) - Ruslan Carias MD Familial anesthetic complications: None Was Beta Mitra taken within 24 hours: Yes Last intake: NPO since yesterday Social: Social History: No alcohol and No tobacco Exam: Pre-Anes Outpt Exam: alert, oriented x 3, clear to auscultation bilaterally and regular rate & rhythm Airway: Cervical ROM: WNL MP: 2 Dentition: Chipped and Other (missing) Pulmonary: Pulmonary: COPD Comments: Hx PE on eliquis PFT show severe restritve ventilatory defect CV/HEM: CV/HEM: Afib and HTN Comments: echo 2019 - EF 65%, no other abnormalities : : Chronic renal failure Comments: on peritoneal dialysis Neuropsych: Neuropsych: TIA Anesthetic Plan: ASA status: 3E Anesthesia: General Risk of > 500 ml blood loss (7ml/kg in children): No PFSH Anesthesia PFSH: Medical History Anemia of chronic disease Anxiety and depression DDD (degenerative disc disease) Diastolic CHF ESRD (end stage renal disease) On Peritoneal dialysis Fibromyalgia GERD (gastroesophageal reflux disease) History of breast cancer Previously followed by Dr. Santoyo History of pulmonary embolus (PE) 08/2016 History of stroke 11/14/16 Hyperlipidemia Hypertension Lumbar spinal stenosis Osteoarthritis Paroxysmal A-fib Peritoneal dialysis catheter in place Restrictive lung disease Surgical History History of back surgery History of esophagogastroduodenoscopy (EGD) 08/03/17 mild gastritis and duodenitis History of hemiarthroplasty of left hip 11/18/18: Dr. Mendoza History of hysterectomy History of lumpectomy of left breast History of right cataract surgery Family History Other Cancer Denies family history of Anesthesia complication Bleeding disorder Social History Smoking and tobacco status: never smoked Second hand smoke exposure: No Alcohol intake: never Adopted: No Caregiver/support person: Yes Lives independently: Yes Housing: Assisted Living Facility Marital status: Marital status details: with dementia Additional social history: FULL CODE DISCUSSED WITH PATIENT ON 02/04/20 Data Anesthesia CBC & Chem 7: 02/25/20 08:45 02/25/20 08:45 Other Labs: Laboratory Results - last 48 hr 02/25/20 02/25/20 02/25/20 08:45 08:45 09:24 WBC 5.7 RBC 3.37 L Hgb 11.6 Hct 35.3 L MCV 104.7 H MCH 34.4 H MCHC 32.9 RDW 13.6 Plt Count 156 MPV 10.5 H Neut % (Auto) 92.3 Lymph % (Auto) 4.4 Hyde % (Auto) 0.5 Eos % (Auto) 1.9 Baso % (Auto) 0.5 Neut # (Auto) 5.25 Lymph # (Auto) 0.3 L Hyde # (Auto) 0.0 L Eos # (Auto) 0.1 Baso # (Auto) 0.0 Nucleated RBC % (auto) 0 Nucleated RBCs # 0.0 Specimen Type Sample Site ABG pH ABG pCO2 ABG pO2 ABG HCO3 ABG O2 Saturation ABG Base Excess Eddi Test Hematocrit Hgb O2 Saturation Carboxyhemoglobin Methemoglobin Total Hemoglobin Ionized Calcium O2 Delivery Device O2 Liters/Min Lead Android Developer ID Sodium 134 L Potassium 3.7 Chloride 92 L Carbon Dioxide 32 H Anion Gap 13.7 BUN 45 H Creatinine 4.5 H GFR Calculation Not Reportable Glucose 116 H Calculated Osmolality 277 L Lactic Acid Calcium 9.0 Magnesium 1.8 Total Bilirubin 0.4 AST 15 ALT 12 Alkaline Phosphatase 59 Creatine Kinase 109 Total Protein 6.7 Albumin 3.6 Globulin 3.1 Lipase 24 Urine Color Yellow Urine Appearance Cloudy Urine pH 5 Ur Specific Richardson 1.010 Urine Protein Trace Urine Glucose (UA) Norm Urine Ketones Negative Urine Blood Neg Urine Nitrate Negative Urine Bilirubin Neg Urine Urobilinogen Norm Ur Leukocyte Esterase 2+ H Urine RBC 0-4 H Urine WBC 55-80 H Ur Squamous Epith Cells 5-10 H Ur Transition Epith Cell 0-4 Amorphous Sediment Not Reportable Urine Bacteria 3+ H SARS-CoV-2 Ag (Rapid) 02/25/20 02/25/20 02/25/20 09:27 09:28 09:30 WBC RBC Hgb Hct MCV MCH MCHC RDW Plt Count MPV Neut % (Auto) Lymph % (Auto) Hyde % (Auto) Eos % (Auto) Baso % (Auto) Neut # (Auto) Lymph # (Auto) Hyde # (Auto) Eos # (Auto) Baso # (Auto) Nucleated RBC % (auto) Nucleated RBCs # Specimen Type Arterial Sample Site Radial, left ABG pH 7.43 ABG pCO2 47.0 H ABG pO2 135.0 H ABG HCO3 31.5 H ABG O2 Saturation 99.3 ABG Base Excess 6.3 H Eddi Test Pos Hematocrit 33.7 L Hgb O2 Saturation 97.6 Carboxyhemoglobin 0.8 Methemoglobin 1.0 Total Hemoglobin 11.0 L Ionized Calcium 1.1 O2 Delivery Device Nc O2 Liters/Min 2.0 Lead Android Developer ID Anonymous Sodium 134.0 Potassium 3.0 L Chloride Carbon Dioxide Anion Gap BUN Creatinine GFR Calculation Glucose 103.0 Calculated Osmolality Lactic Acid 1.0 Calcium Magnesium Total Bilirubin AST ALT Alkaline Phosphatase Creatine Kinase Total Protein Albumin Globulin Lipase Urine Color Urine Appearance Urine pH Ur Specific Richardson Urine Protein Urine Glucose (UA) Urine Ketones Urine Blood Urine Nitrate Urine Bilirubin Urine Urobilinogen Ur Leukocyte Esterase Urine RBC Urine WBC Ur Squamous Epith Cells Ur Transition Epith Cell Amorphous Sediment Urine Bacteria SARS-CoV-2 Ag (Rapid) Negative Micro: Microbiology 02/25/20 09:27 Blood Culture - Preliminary Blood SPECIMEN COLLECTED 02/25/20 09:27 Blood Culture - Preliminary Blood SPECIMEN COLLECTED Cardiac Studies: No Data to Display
[2020-02-25] MEDS: clindamycin 600 MG/50 ML PREMIX 100 MG IV (15:17)
[2020-02-25] MEDS: lidocaine 2% INJ 20 mL INJECTION (16:00)
--- NOTE | 2020-02-25 16:20 | PM.OP ---
Operative Report Date of procedure: February 25, 2020 Pre-op Diagnosis: Pneumoperitoneum Post-op Diagnosis: No acute intra-abdominal pathology, normal looking viscera including the stomach without evidence of perforations and intraoperative EGD was performed showing no acute findings except for some scattered gastric polyps and flakes of candidiasis of the proximal and middle esophagus Procedure Done: Diagnostic laparoscopy and intraoperative esophago-gastrooscopy Specimens removed/disposition: None Surgeon: Ruslan Carias Dike Supervisor: Surgical techgissell Roach pulmonary function technician Fatimah Circulating nurses Lisa and Michelle Anesthesia: General (Smiley Gardner/Dr. Smith) Estimated blood loss (mL): 5 Complications: No immediate complication Condition: stable Disposition: ICU Brief History: This is a pleasant 84 years old female patient presented to the emergency department with lower abdominal pain and was found to have pneumoperitoneum on the CT scan that showed concern of potential perforated gastric ulcer. After thorough history physical examination and reviewing the chart and images with my personal interpretation and further discussion with the family I did savings counselor them for diagnostic laparoscopy possible laparotomy and intraoperative EGD and they did agree to proceed accordingly. Informed consent per chart Procedure: After identifying the patient in the holding area, was taken to the operating room, placed in supine position, intubated by anesthesia, prophylactic IV antibiotics were given per protocol. Paula catheter was already inserted in the ER,time-out was done verifying the patient's name/date of /planned procedure and destination after the procedure, all were in agreement. Patient was appropriately secured to the table, all pressure points were padded and both arms were tucked. Prep and drape of the abdomen was done under the usual sterile technique, a Staley trocar technique was used through an Supraumbilical skin incision, two stay sutures were applied to the fascia,and safe entrance to the abdominal cavity was achieved,low flow followed by high flow of CO2 gas, started by 0 scope 10 mm, no injuries were detected, followed by that a 30? millimeter scope was inserted, there was no evidence of succus or pus in the abdominal. A 5 mm trocar was inserted under direct vision in the right upper quadrant, followed by a right lower quadrant Position of the patient was done in T Waldrop and reversed T Waldrop so I was able to inspect the whole abdominal cavity safely there was no evidence of intra-abdominal pathology and the dialysis catheter looked to be in good position towards the pelvis without complication. The Area of concern of the proximal part of the stomach was inspected appropriately as I lifted the liver up and there was no evidence of perforation or induration also I did open a window in the lesser sac and there was no evidence of pus or perforation or fluid collection I decided at this point to scrub out after clamping the distal part of the stomach to perform a diagnostic EGD that was introduced via the oral cavity without difficulty and I was able to inspect the esophagus that showed some flakes concerning for esophageal candidiasis and the intragastric component showed scattered small polyps without evidence of inflammation or ulcers also a leak test was done with the stomach was submerged under saline and the laparoscopic image showed no evidence of bubbles or leaks.At this point I deflated the stomach and scrubbed back in and the clamp of the distal stomach was taken down and I inspected the area showed no injuries and the rest of the bowel looked healthy and intact. Continued to have viable bowel,Staley trocar entrance site was closed by interrupted 0 Vicryl using fascial closure device followed by that gas was allowed to escape all trocars were taken out,, skin was then closed by 3-0 Vicryl followed by 4-0 subcuticular Monocryl and followed by application of surgical glue, and appropriate dressing was applied onto the dialysis catheter. Paula catheter was kept at the end of the procedure Patient tolerated the procedure well and got extubated, was taken to the ICU directly as previous signed prior to surgery per hospitalist service Count of instruments,needles and sponges were completed at the end of the procedure I was present for the whole entire procedure
--- NOTE | 2020-02-25 16:30 | ANE.PACU2 ---
Inpatient post-anesthesia follow up: Airway intact: Yes Vital signs: Temperature 100.9 F Pulse Rate 62 Respiratory Rate 36 Blood Pressure 117/54 Pulse Oximetry 98 Oxygen Delivery Me thod Nasal Cannula Oxygen Flow Rate 2 Fraction of Inspir ed Oxygen Hydration adequate: Yes Nausea and vomiting: No Pain level: 1 Mental status: Baseline
--- NOTE | 2020-02-25 16:48 | PM.CONSULT ---
Providers/Reason For Consult Consulting Physican/Specialty*: Claudia Strickland DO, telenephrology Reason for Consult*: ESRD on PD - seen postop Attending Physician: Mirian Castaneda DO Primary Care Provider: Gunnar Winn DO History of Present Illness History of Present Illness Milla Thomas is a 84 year old female [facility] for evaluation of nausea, vomiting, abdominal pain. Free air found on imaging, she underwent laporoscopy which revealed no perforations. Review of Systems General: Reports: ROS unobtainable due to medical condition Meds/Allergies Home Medications and Allergies Home Medications Medication Instructions Recorded Confirmed Last Taken Type acetaminophen 325 mg tablet 650 mg PO Q4H PRN 11/13/19 02/25/20 Unknown History alprazolam 0.25 mg tablet 0.25 mg PO BEDTIME PRN 11/13/19 02/25/20 02/24/20 History bisacodyl 10 mg rectal suppository 10 mg ND DAILY PRN 11/13/19 02/25/20 Unknown History bumetanide 1 mg tablet 2 mg PO BID 11/13/19 02/25/20 02/24/20 History carisoprodol 350 mg tablet 350 mg PO BID PRN tab 11/13/19 02/25/20 02/24/20 History carvedilol 25 mg tablet 50 mg PO BID 11/13/19 02/25/20 02/24/20 History citalopram 10 mg tablet 10 mg PO DAILY 11/13/19 02/25/20 02/24/20 History clonidine HCl 0.1 mg tablet 0.1 mg PO DAILY PRN tab 11/13/19 02/25/20 Unknown History docusate sodium 100 mg capsule 200 mg PO BEDTIME 11/13/19 02/25/20 02/24/20 History ipratropium 0.5 mg-albuterol 3 mg 3 ml INHALATION Q4H PRN 11/13/19 02/25/20 Unknown History (2.5 mg base)/3 mL nebulization soln isosorbide mononitrate 30 mg 30 mg PO DAILY 11/13/19 02/25/20 02/24/20 History tablet,extended release 24 hr nystatin 100,000 unit/gram topical 1 applic TOPICAL BID 11/13/19 02/25/20 Unknown History powder pantoprazole 40 mg tablet,delayed 40 mg PO BID tab 11/13/19 02/25/20 02/24/20 History release polyethylene glycol 3350 17 17 gm PO DAILY 11/13/19 02/25/20 02/24/20 History gram/dose oral powder potassium chloride 20 mEq 20 meq PO BID 11/13/19 02/25/20 02/24/20 History tablet,extended release promethazine 12.5 mg rectal 12.5 mg ND Q8H PRN 11/13/19 02/25/20 Unknown History suppository verapamil 180 mg tablet,extended 180 mg PO DAILY 11/13/19 02/25/20 02/24/20 History release hydrocodone 7.5 mg-acetaminophen 1 tab PO Q4H PRN 30 Days #180 tab 02/22/20 02/25/20 Unknown Rx 325 mg tablet oxycodone 20 mg tablet,crush 20 mg PO Q12H 30 Days #60 tab 02/22/20 02/25/20 02/24/20 Rx resistant,extended release 12 hr Lactobac. rhamnosus GG-inulin 1 cap PO DAILY 02/25/20 02/25/20 02/24/20 History [[facility]] Tucks Pads See Rx Instructions .ROUTE .COMPLEX 02/25/20 02/25/20 Unknown History apixaban [Eliquis] 2.5 mg PO BID 02/25/20 02/25/20 02/24/20 History metolazone 5 mg PO EVERY OTHER DAY 02/25/20 02/25/20 02/24/20 History ondansetron 8 mg PO TID 02/25/20 02/25/20 02/25/20 08:00 History phenyleph-shark oil-cocoa butr 1 supp ND PRN 02/25/20 02/25/20 Unknown History [Hemorrhoidal] simethicone See Rx Instructions .ROUTE .COMPLEX 02/25/20 02/25/20 Unknown History sodium phosphates [Enema] 118 ml ND DAILY PRN 02/25/20 02/25/20 Unknown History sorbitol See Rx Instructions .ROUTE .COMPLEX 02/25/20 02/25/20 Unknown History vit B comp no.6-kndgn-L-biotin 1 tab PO DAILY 02/25/20 02/25/20 02/24/20 History [[facility]] Allergies Allergy/AdvReac Type Severity Reaction Status Date / Time amitriptyline [From Elavil] Allergy Unknown Unknown Verified 02/25/20 14:08 cyclobenzaprine Allergy Unknown Unknown Verified 02/25/20 14:08 [From Flexeril] doxycycline Allergy Unknown Unknown Verified 02/25/20 14:08 Penicillins Allergy Unknown Unknown Verified 02/25/20 14:08 pentazocine [From Talwin] Allergy Unknown Unknown Verified 02/25/20 14:08 pregabalin [From Lyrica] Allergy Unknown Unknown Verified 02/25/20 14:08 tizanidine Allergy Unknown Unknown Verified 02/25/20 14:08 morphine Allergy Unknown Verified 02/25/20 14:08 Current Medications reviewed PFSH Acute PFSH: Medical History Anemia of chronic disease Anxiety and depression DDD (degenerative disc disease) Diastolic CHF ESRD (end stage renal disease) On Peritoneal dialysis Fibromyalgia GERD (gastroesophageal reflux disease) History of breast cancer Previously followed by Dr. Santoyo History of pulmonary embolus (PE) 08/2016 History of stroke 11/14/16 Hyperlipidemia Hypertension Lumbar spinal stenosis Osteoarthritis Paroxysmal A-fib Peritoneal dialysis catheter in place Restrictive lung disease Surgical History History of back surgery History of esophagogastroduodenoscopy (EGD) 08/03/17 mild gastritis and duodenitis History of hemiarthroplasty of left hip 11/18/18: Dr. Mendoza History of hysterectomy History of lumpectomy of left breast History of right cataract surgery Family History Other Cancer Denies family history of Anesthesia complication Bleeding disorder Social History Smoking and tobacco status: never smoked Second hand smoke exposure: No Alcohol intake: never Adopted: No Caregiver/support person: Yes Lives independently: Yes Housing: Assisted Living Facility Marital status: Marital status details: with dementia Additional social history: FULL CODE DISCUSSED WITH PATIENT ON 02/04/20 Vitals/I&O/Wt Last Vital Signs Temp 100.2 F H 02/25/20 10:31 Pulse 59 L 02/25/20 16:14 Resp 16 02/25/20 14:45 BP 119/56 02/25/20 16:14 Pulse Ox 100 02/25/20 16:14 02/25/20 02/25/20 02/25/20 06:59 14:59 22:59 Intake Total 150 / 150 Balance 150 / 150 Weight last 48 hrs Weight 64.41 kg Physical Exam Resp: COMMON NORMALS: normal respiratory effort and clear to auscultation bilaterally AUSCULTATION: clear to auscultation bilaterally Cardio: COMMON NORMALS: regular rate and regular rhythm RATE: regular rate RHYTHM: regular rhythm GI: INSPECTION: Yes other (PD catheter exit site LLQ - no redness or discharge) Extremity: COMMON NORMALS: no pedal edema Urinary Catheter Management^: Paula: Cath Placed During This Visit: no Reason for Continuing Indwelling Catheter: Other Data Micro: Micro: Microbiology 02/25/20 09:27 Blood Culture - Pr eliminary Blood SPECIMEN [facility] 02/25/20 09:27 Blood Culture - Pr eliminary Blood SPECIMEN [facility] Other Data: Other data: urinalysis many WBC CXR no pulmonary edema A&P Additional A&P Information Impression: 1. ESRD on peritoneal dialysis s/p laporoscopy for evaluation of intraperitoneal air - source not found 2. UTI and urine retention 3. History of CHF, CVA, PE Recommendation: Will hold PD tonight and discuss timing of initiation with surgery. When started, will use lower volumes to avoid leaks from incisions. Panculture, broad spectrum antibiotics pending results. Coding Level of Care Code Acute Manual Training Teacher for Alyson Abdullahi
[2020-02-25] MEDS: bumetanide 1 mg Tablet 2 MG PO (21:11)
[2020-02-25] MEDS: nystatin powder 15 gm Btl 1 APPLIC TOPICAL (21:17)
--- NOTE | 2020-02-25 21:20 | PC.NURSE ---
Physician Notification Notified Dr. Mcrae for late administration of 1800 meds do to drowsiness post operatively. Clarification of admin of carvedilol needed. Pt running 55-60 sinus baljit. Telephone orders given to hold carvedilol and oral potassium.
[2020-02-25] MEDS: HYDROcodone-acetaminophen 7.5-325 mg Tablet 1 TAB PO (22:54)
[2020-02-26] VITALS (30 sets, daily range): BP systolic 108–170; BP diastolic 49–98; PULSE 59–81; RESP 12–36; TEMP 36.8–38.3; O2SAT 94–99
[2020-02-26] MEDS: oxyCODONE 20 mg ER (12 HR) Tablet PO ×2 (01:46→14:48)
[2020-02-26] MEDS: acetaminophen 325 mg Tablet 650 MG PO (03:18)
[2020-02-26 03:33] LABS: Basophils % 0.2 %; Eosinophils % 0.1 %; Hematocrit 31.5 % (37.0-47.0); Hemoglobin 10.3 g/dL (11.5-15.3); Lymphocytes # 0.5 10^3/uL (0.8-4.8); Lymphocytes % 5.9 %; Mean Corpuscular HGB Conc 32.7 g/dL (30.0-36.0); Mean Corpuscular Hemoglobin 34.2 pg (28.0-34.0); Mean Corpuscular Volume 104.7 fL (81-99); Mean Platelet Volume 9.9 fL (7.4-10.4); Monocytes # 0.8 10^3/uL (0.2-0.9); Monocytes % 8.8 %; Neutrophils # 7.59 10^3/uL (1.8-7.7); Neutrophils % 84.8 %; Nucleated Red Blood Cells % 0 %; Platelet Count 124 10^3/cmm (130-400); Red Blood Count 3.01 10^6/uL (4.1-5.3); Red Cell Distribution Width 13.6 % (12.1-15.1)
[2020-02-26 04:18] LABS: INR 1.26 (0.8-1.2)
[2020-02-26 04:21] LABS: Alanine Aminotransferase 9 U/L (0-33); Albumin Level 2.5 g/dL (3.5-5.2); Alkaline Phosphatase 49 IU/L (35-105); Anion Gap 14.8 (5-19); Aspartate Amino Transferase 16 U/L (0-32); Blood Urea Nitrogen 45 mg/dL (8-23); Calcium 8.3 mg/dL (8.5-10.5); Carbon Dioxide 28 mmol/L (22-29); Chloride 94 mmol/L (98-107); Globulin 2.9 g/dL (1.3-4.6); Glucose 88 mg/dL (65-115); Osmolality Calculated 275 mOsm/kg (285-295); Sodium 134 mmol/L (136-145); Total Bilirubin 0.3 mg/dL (0.15-1.2); Total Protein 5.4 g/dL (6.6-8.7)
[2020-02-26 04:25] LABS: Potassium 2.8 mmol/L (3.5-5.1)
[2020-02-26] MEDS: potassium chloride premix 40 MEQ/100 ML PREMIX 25 MEQ IV (06:00)
[2020-02-26] MEDS: sodium chloride 0.9% 1,000 ML 30 ML IV (06:01)
[2020-02-26 08:44] LABS: Magnesium 1.7 mg/dL (1.7-2.3)
[2020-02-26] MEDS: fluconazole 100 mg Tablet PO (09:01)
[2020-02-26] MEDS: potassium chloride ER 10 mEq Tablet 20 MEQ PO ×2 (09:01→19:10)
[2020-02-26] MEDS: isosorbide mononitrate ER 30 mg Tablet PO (09:01)
[2020-02-26] MEDS: bumetanide 1 mg Tablet 2 MG PO ×2 (09:01→18:25)
[2020-02-26] MEDS: citalopram 20 mg Tablet 10 MG PO (09:02)
[2020-02-26] MEDS: pantoprazole 40 mg SDV IVP (09:10)
[2020-02-26] MEDS: potassium chloride premix 40 MEQ/100 ML PREMIX 10 MEQ IV (09:50)
[2020-02-26] MEDS: lidocaine 1% INJ 20 mL 5 ML IV (09:51)
--- NOTE | 2020-02-26 09:54 | PC.NURSE ---
d/t b/p and heart rate being somewhat low, dr. figueroa okayed hold 3 meds for awhile
--- NOTE | 2020-02-26 10:28 | P.PN_ITS ---
Subjective Subjective: Interval history: Patient awake in bed at time of exam. Reported some discomfort in her abdomen, no nausea. Discussed with her plan for restarting PD today. Patient with severe hypokalemia, IV potassium replacement ordered. She denies any chest pain or shortness of breath. Discussed with patient plan for continuation of IV antibiotics due to concern for bacteremia an d acute cystitis Vitals/I&O/Wt Last Vital Signs Temp 100.9 F H 02/26/20 03:17 Pulse 59 L 02/26/20 10:00 Resp 12 02/26/20 10:00 BP 108/54 02/26/20 10:00 Pulse Ox 97 02/26/20 10:00 02/25/20 02/26/20 02/26/20 22:59 06:59 14:59 Intake Total 650 / 650 580 / 580 Output Total 660 / 660 700 / 1360 Balance -10 / -10 -700 / -710 580 / 580 Weight last 48 hrs Weight 65.771 kg Weight 64.41 kg Physical Exam Const: COMMON NORMALS: patient oriented x3 and alert GENERAL APPEARANCE: cooperative ORIENTATION/CONSCIOUSNESS: Yes awake, Yes oriented to person, Yes oriented to place and Yes oriented to time HENMT: COMMON NORMALS: normocephalic and atraumatic HEAD & SCALP: normocephalic and atraumatic Eye: COMMON NORMALS: Equal, round and reactive pupils present PUPIL: Yes Equal, round and reactive pupils present Neck/C-Spine: COMMON NORMALS: supple GENERAL: Yes normal visual inspection Resp: COMMON NORMALS: normal respiratory effort and clear to auscultation bilaterally EFFORT & INSPECTION: Yes able to speak in complete sentences AUSCULTATION: clear to auscultation bilaterally, no rhonchi and no wheezes Cardio: COMMON NORMALS: regular rhythm and No murmurs present (Cardio) RATE: bradycardic RHYTHM: regular rhythm GI: OTHER: Mild incisional pain, abdomen is soft, slightly hypoactive bowel sounds, no appreciable guarding or rigidity, PD catheter in place with no surrounding erythema or drainage : COMMON NORMALS: Yes no CVA tenderness BLADDER/KIDNEY EXAM: Yes no CVA tenderness Back/Pelvis: COMMON NORMALS: no CVA tenderness Extremity: COMMON NORMALS: no calf tenderness NARRATIVE EXTREMITY EXAM: 1+ pitting edema in the lower extremities bilaterally, negative Homans sign in the lower extremities bilaterally Neuro: COMMON NORMALS: patient oriented x3, CN's II-XII intact bilaterally, moves all extremities and no focal motor deficits SENSORIUM/ORIENTATION: Yes alert, Yes oriented to person, Yes oriented to place and Yes oriented to time SPEECH: speech normal Psych: COMMON NORMALS: mental status grossly normal and cooperative Skin: COMMON NORMALS: no rashes or lesions noted GENERAL SKIN EXAM: no rashes or lesions noted Urinary Catheter Management^: Paula: Cath Placed During This Visit: no Reason for Continuing Indwelling Catheter: Accurate Measurement of Urinary Output in Critically Ill Patients Data : 02/26/20 03:05 02/26/20 03:05 Micro: Microbiology 02/25/20 09:24 Urine Culture - Preliminary Urine,Clean Catch Gram Negative Rods 02/25/20 09:27 Blood Culture - Preliminary Blood NEGATIVE TO DATE 02/25/20 09:27 Blood Culture - Preliminary Blood Gram Negative Rods A&P Assessment and plan (1) Abdominal pain: Peritoneal fluid studies ordered Concern for free air in the abdomen, patient taken for exploratory laparoscopic surgery which was negative for any perforation General surgeon, Dr. Carias consulted, appreciate recommendations and assistance in patient's care Continue on Primaxin due to concern for gram-negative elias bacteremia and acute cystitis Postop day #1 diagnostic laparoscopy Status: Acute (2) Acute cystitis: Gram-negative rods on urine culture and blood culture, continue with Primaxin Status: Acute (3) ESRD (end stage renal disease): On peritoneal dialysis Nephrology consulted, appreciate recommendations and assistance in patient's care Status: Acute (4) Diastolic CHF: Without acute exacerbation, continue close monitoring with strict intake and output as well as daily weights Status: Acute (5) Fibromyalgia: With chronic pain on daily opioids, continue home medications Status: Acute (6) Lumbar spinal stenosis: Status: Acute (7) Anxiety and depression: Status: Acute Additional A&P Information Bradycardia overnight: Verapamil 180 mg, Coreg decreased to 12.5 mg twice daily continue close monitoring on telemetry History of paroxysmal atrial fibrillation: Holding home Eliquis, heparin ordered and will follow up with surgical recommendations History of pulmonary embolism in 2017 Prior history of CVA Hypertension: Blood pressures remained stable at this time Hyperlipidemia Restrictive lung disease DVT prophylaxis: SCDs, heparin at this time q8hr until discussion with surgery Diet: N.p.o. until surgical evaluation CODE STATUS: Full code Attestations Medical Necessity Statement*: Patient requires continued hospitalization status post diagnostic laparoscopy due to pneumoperitoneum, gram-negative elias bacteremia and acute cystitis Coding Level of Care Code Acute Territory Sales Professional for Chg Fwd Diagnoses Abdominal pain R10.9 Acute cystitis N30.00 ESRD (end stage renal disease) N18.6 Diastolic CHF I50.30 Fibromyalgia M79.7 Lumbar spinal stenosis M48.061 Anxiety and depression F41.9; F32.9
--- NOTE | 2020-02-26 11:49 | PM.PN ---
Subjective Subjective: Interval history: Patient overall feels better and no acute events overnight seems to be tolerating p.o. intake Vitals/I&O/Wt Last Vital Signs Temp 100.9 F H 02/26/20 03:17 Pulse 59 L 02/26/20 10:00 Resp 12 02/26/20 10:00 BP 108/54 02/26/20 10:00 Pulse Ox 97 02/26/20 10:00 02/25/20 02/26/20 02/26/20 22:59 06:59 14:59 Intake Total 650 / 650 580 / 580 Output Total 660 / 660 700 / 1360 Balance -10 / -10 -700 / -710 580 / 580 Weight last 48 hrs Weight 145 lb Weight 142 lb Physical Exam Narrative: EXAM NARRATIVE: Patient is conscious alert oriented X3 BMI 25 Head and neck examination PERRLA no masses no cervical lymphadenopathy no jaundice Abdomen nontender nondistended soft no organomegaly guarding or rigidity/no signs of peritonitis Incisions are clean dry and intact and dialysis catheter in place without complication Urinary Catheter Management^: Paula: Cath Placed During This Visit: no Reason for Continuing Indwelling Catheter: Accurate Measurement of Urinary Output in Critically Ill Patients Data : 02/27/20 03:46 02/27/20 03:46 Micro: Microbiology 02/25/20 09:24 Urine Culture - Preliminary Urine,Clean Catch Gram Negative Rods 02/25/20 09:27 Blood Culture - Preliminary Blood NEGATIVE TO DATE 02/25/20 09:27 Blood Culture - Preliminary Blood Gram Negative Rods A&P Assessment and plan (1) Abdominal pain: Patient is status post diagnostic laparoscopy for concern of perforated gastric ulcer that turned out to be negative and intraoperative EGD showed flakes of esophageal mucosal changes concerning for esophageal candidiasis. From surgical standpoint of view advance diet as tolerated Can resume peritoneal dialysis Return to surgery office upon discharge for follow-up Assurance and education All questions have been answered and all concerns have been addressed to patient's satisfaction. Status: Resolved Attestations Medical Necessity Statement*: Per hospitalist service Time Spent in Patient Care: (>than 50% of time spent in counselling and/or direct pt care on unit). Coding Level of Care Code Acute Vp Human Resources for Chg Fwd Diagnoses Abdominal pain R10.9
--- NOTE | 2020-02-26 12:38 | PC.NURSE ---
1130 dialysate 2.5% up and pt drained immediate pink fluid prior to instilling 500cc of dialysate. dwelled 15 min. attempting to drain w/o success. attempting to call [facility].
--- NOTE | 2020-02-26 13:47 | P.PN_ITS ---
Subjective Subjective: Interval history: Urosepsis, s/p laporoscopy. Reports mild soreness in abdomen. Tolerated meals, No flatus or BM. Paula urine output 1300 ml today. RN sent peritoneal fluid today. Reports it was clear Medications: Reviewed: Yes Vitals/I&O/Wt Last Vital Signs Temp 98.7 F 02/26/20 12:00 Pulse 63 02/26/20 12:00 Resp 13 02/26/20 12:00 BP 131/61 02/26/20 12:00 Pulse Ox 98 02/26/20 12:00 02/25/20 02/26/20 02/26/20 22:59 06:59 14:59 Intake Total 650 / 650 580 / 580 Output Total 660 / 660 700 / 1360 Balance -10 / -10 -700 / -710 580 / 580 Weight last 48 hrs Weight 65.771 kg Weight 64.41 kg Physical Exam Const: COMMON NORMALS: no acute distress GENERAL APPEARANCE: cooperative and comfortable Extremity: GENERAL: No edema Urinary Catheter Management^: Paula: Cath Placed During This Visit: no Reason for Continuing Indwelling Catheter: Accurate Measurement of Urinary Output in Critically Ill Patients Data : 02/26/20 03:05 02/26/20 14:24 Micro: Microbiology 02/25/20 09:24 Urine Culture - Preliminary Urine,Clean Catch Gram Negative Rods 02/25/20 09:27 Blood Culture - Preliminary Blood NEGATIVE TO DATE 02/25/20 09:27 Blood Culture - Preliminary Blood Gram Negative Rods A&P Additional A&P Information mpression: 1. ESRD on peritoneal dialysis s/p laporoscopy for evaluation of intraperitoneal air - source not found 2. Urosepsis, gram negative elias, on imipenem 3. Hypokalemia, improved 4. History of CHF, CVA, PE Recommendation: follow-up peritoneal fluid today and final urine culture Will begin low volume exchanges (1000 ml) Q6 hours while supine, gentamicin ointment to PD exit site. Attestations Medical Necessity Statement*: post op Time Spent in Patient Care: 16 - 35 minutes Coding Level of Care Code Acute Global Marketing Specialist for Alyson Abdullahi
[2020-02-26] MEDS: heparin 5,000 unit/mL INJ 1 mL 5000 UNIT SUBCUT ×2 (14:49→19:10)
[2020-02-26] MEDS: nystatin powder 15 gm Btl 1 APPLIC TOPICAL (14:56)
[2020-02-26] MEDS: carvedilol 12.5 mg Tablet PO (18:26)
[2020-02-26] MEDS: Dianeal low Ca w/1.5% dex 2,000 mL Bag 1000 ML INTRAPERIT (18:27)
[2020-02-26] MEDS: ALPRAZolam 0.25 mg Tablet PO (21:21)
[2020-02-26] MEDS: HYDROcodone-acetaminophen 7.5-325 mg Tablet 1 TAB PO (23:23)
[2020-02-27] VITALS (23 sets, daily range): BP systolic 92–143; BP diastolic 44–76; PULSE 48–89; RESP 14–32; TEMP 36.4–37; O2SAT 91–98
[2020-02-27] MEDS: Dianeal low Ca w/1.5% dex 2,000 mL Bag 1000 ML INTRAPERIT (00:25)
--- NOTE | 2020-02-27 00:43 | PC.NURSE ---
Cloudy Peritoneal fluid After first PD exchange. Effluent noted to be orangish/pink and cloudy. Dr. Mcrae notified and message left with Dr. Strickland, telenephrologist. Specimen collected for culture. Abd is soft, non-distended, positive bowel sounds X 4 quadrants.
[2020-02-27 01:06] LABS: Apprearance, Body Fluid CLOUDY (CLEAR); Color, Body Fluid RED (PALE YELLOW)
[2020-02-27 01:10] LABS: Body Fluid WBC 97 /uL; RBC, Body Fluid 4 10^3/uL (0-0)
--- NOTE | 2020-02-27 01:13 | PC.NURSE ---
Physician Notification Dr. Strickland responded via telephone. Verbal orders received for peritoneal cell count with differential and culture. Orders received to hold PD until further orders in AM.
[2020-02-27] MEDS: heparin 5,000 unit/mL INJ 1 mL 5000 UNIT SUBCUT ×2 (03:03→10:38)
[2020-02-27 04:25] LABS: Basophils % 0.4 %; Eosinophils # 0.3 10^3/uL (0.0-0.8); Eosinophils % 4.4 %; Hematocrit 31.8 % (37.0-47.0); Hemoglobin 10.3 g/dL (11.5-15.3); Lymphocytes # 1.2 10^3/uL (0.8-4.8); Lymphocytes % 16.6 %; Mean Corpuscular HGB Conc 32.4 g/dL (30.0-36.0); Mean Corpuscular Hemoglobin 34.7 pg (28.0-34.0); Mean Corpuscular Volume 107.1 fL (81-99); Mean Platelet Volume 10.4 fL (7.4-10.4); Monocytes % 13.7 %; Neutrophils % 64.6 %; Nucleated Red Blood Cells % 0 %; Platelet Count 131 10^3/cmm (130-400); Red Blood Count 2.97 10^6/uL (4.1-5.3); Red Cell Distribution Width 13.6 % (12.1-15.1); White Blood Count 7.4 10^3/uL (4.0-10.0)
[2020-02-27 04:52] LABS: Alanine Aminotransferase 9 U/L (0-33); Albumin Level 2.3 g/dL (3.5-5.2); Alkaline Phosphatase 54 IU/L (35-105); Aspartate Amino Transferase 17 U/L (0-32); Blood Urea Nitrogen 48 mg/dL (8-23); Calcium 8.6 mg/dL (8.5-10.5); Carbon Dioxide 30 mmol/L (22-29); Chloride 96 mmol/L (98-107); Glucose 95 mg/dL (65-115); Osmolality Calculated 278 mOsm/kg (285-295); Sodium 135 mmol/L (136-145); Total Bilirubin 0.2 mg/dL (0.15-1.2); Total Protein 5.3 g/dL (6.6-8.7)
[2020-02-27 04:59] LABS: Anion Gap 12.6 (5-19); Potassium 3.6 mmol/L (3.5-5.1)
--- NOTE | 2020-02-27 08:27 | PM.PN ---
Subjective Subjective: Interval history: Urosepsis, s/p exploratory laporoscopy. PD held last night due to RN reporting bloody fluid Milla has been OOB to chair, + flatus. Reports significant posterior neck pain with movement over night - improved Medications: Reviewed: Yes Vitals/I&O/Wt Last Vital Signs Temp 98.2 F 02/27/20 05:00 Pulse 65 02/27/20 08:15 Resp 16 02/27/20 08:15 BP 138/71 02/27/20 07:00 Pulse Ox 93 02/27/20 08:15 02/26/20 02/27/20 02/27/20 22:59 06:59 14:59 Intake Total 880 / 1980 708.5 / 2688.5 Output Total 1400 / 2200 1150 / 3350 Balance -520 / -220 -441.5 / -661.5 Weight last 48 hrs Weight 66.406 kg Weight 65.771 kg Weight 64.41 kg Physical Exam Const: COMMON NORMALS: no acute distress Resp: COMMON NORMALS: normal respiratory effort and clear to auscultation bilaterally AUSCULTATION: clear to auscultation bilaterally Cardio: COMMON NORMALS: regular rhythm RHYTHM: regular rhythm Extremity: GENERAL: Yes edema (trace) Urinary Catheter Management^: Owens: Cath Placed During This Visit: no Reason for Continuing Indwelling Catheter: Accurate Measurement of Urinary Output in Critically Ill Patients Data : 02/27/20 03:46 02/27/20 03:46 Other Labs: PD fluid 97 WBC, + RBC Micro: Microbiology 02/26/20 14:00 Gram Stain - Final Peritoneal Fluid 02/25/20 09:24 Urine Culture - Preliminary Urine,Clean Catch Gram Negative Rods 02/25/20 09:27 Blood Culture - Preliminary Blood NEGATIVE TO DATE 02/25/20 09:27 Blood Culture - Preliminary Blood Gram Negative Rods A&P Additional A&P Information Impression: 1. ESRD on peritoneal dialysis s/p laporoscopy for evaluation of intraperitoneal air - source not found. Excellent urine output 2. Urosepsis, gram negative elias, in blood and urine, on imipenem. History of UTI. Possible urine retention. 3. Hypokalemia, improved 4. History of CHF, CVA, PE Recommendation: follow-up peritoneal fluid culture today and final urine and blood culture. Can remove owens, but need to follow PVRs. I spoke with Dr Horner. We have decided to hold on resuming PD for now. No urgent indication to restart. Will allow laporoscope ports to heal. Attestations Medical Necessity Statement*: see above Time Spent in Patient Care: Greater than 35 minutes Coding Level of Care Code Acute Senior [employer] Systems Programmer for Alyson Abdullahi
[2020-02-27] MEDS: pantoprazole DR 40 mg Tablet PO (09:21)
[2020-02-27] MEDS: citalopram 20 mg Tablet 10 MG PO (09:21)
[2020-02-27] MEDS: isosorbide mononitrate ER 30 mg Tablet PO (09:22)
[2020-02-27] MEDS: carvedilol 12.5 mg Tablet PO (09:22)
[2020-02-27] MEDS: fluconazole 100 mg Tablet PO (09:22)
[2020-02-27] MEDS: bumetanide 1 mg Tablet 2 MG PO ×2 (09:22→17:57)
[2020-02-27] MEDS: potassium chloride ER 10 mEq Tablet 20 MEQ PO ×2 (09:22→17:57)
[2020-02-27] MEDS: metOLazone 5 MG Tablet PO (09:22)
[2020-02-27] MEDS: nystatin powder 15 gm Btl 1 APPLIC TOPICAL ×2 (09:23→18:07)
[2020-02-27] MEDS: HYDROcodone-acetaminophen 7.5-325 mg Tablet 1 TAB PO (09:30)
[2020-02-27] MEDS: verapamil ER 180 mg Tablet PO (09:42)
--- NOTE | 2020-02-27 09:52 | PM.PN ---
Subjective Subjective: Interval history: Patient awake in bed at time of exam this morning. She reported that abdomen and tenderness has improved, has been able to pass flatus, no bowel movement since surgery. Denies any nausea or vomiting, has tolerated full liquid diet well. Patient reports some headache that starts in her neck and wraps around to her head, more related to which she feels is her fibromyalgia. Patient able to get up to bedside commode without issues, discussed with her plan for discontinuation of her Paula catheter. Patient denies any chest pain or shortness of breath. Medications: Reviewed: Yes Vitals/I&O/Wt Last Vital Signs Temp 98.2 F 02/27/20 05:00 Pulse 62 02/27/20 09:00 Resp 16 02/27/20 09:00 BP 120/51 02/27/20 09:00 Pulse Ox 96 02/27/20 09:00 02/26/20 02/27/20 02/27/20 22:59 06:59 14:59 Intake Total 880 / 1980 708.5 / 2688.5 100 / 100 Output Total 1400 / 2200 1150 / 3350 Balance -520 / -220 -441.5 / -661.5 100 / 100 Weight last 48 hrs Weight 66.406 kg Weight 65.771 kg Physical Exam Const: COMMON NORMALS: patient oriented x3 and alert GENERAL APPEARANCE: cooperative ORIENTATION/CONSCIOUSNESS: Yes awake, Yes oriented to person, Yes oriented to place and Yes oriented to time HENMT: COMMON NORMALS: normocephalic and atraumatic HEAD & SCALP: normocephalic and atraumatic Eye: COMMON NORMALS: Equal, round and reactive pupils present PUPIL: Yes Equal, round and reactive pupils present Neck/C-Spine: COMMON NORMALS: supple GENERAL: Yes normal visual inspection Resp: COMMON NORMALS: normal respiratory effort and clear to auscultation bilaterally EFFORT & INSPECTION: Yes able to speak in complete sentences AUSCULTATION: clear to auscultation bilaterally, no rhonchi and no wheezes Cardio: COMMON NORMALS: regular rhythm and No murmurs present (Cardio) RATE: bradycardic RHYTHM: regular rhythm GI: OTHER: Soft, nontender, nondistended, normal bowel sounds, PD catheter in place with no surrounding erythema or drainage : COMMON NORMALS: Yes no CVA tenderness BLADDER/KIDNEY EXAM: Yes no CVA tenderness Back/Pelvis: COMMON NORMALS: no CVA tenderness Extremity: COMMON NORMALS: no calf tenderness NARRATIVE EXTREMITY EXAM: 1+ pitting edema in the lower extremities bilaterally, negative Homans sign in the lower extremities bilaterally Neuro: COMMON NORMALS: patient oriented x3, CN's II-XII intact bilaterally, moves all extremities and no focal motor deficits SENSORIUM/ORIENTATION: Yes alert, Yes oriented to person, Yes oriented to place and Yes oriented to time SPEECH: speech normal Psych: COMMON NORMALS: mental status grossly normal and cooperative Skin: COMMON NORMALS: no rashes or lesions noted GENERAL SKIN EXAM: no rashes or lesions noted Urinary Catheter Management^: Paula: Cath Placed During This Visit: no Reason for Continuing Indwelling Catheter: Accurate Measurement of Urinary Output in Critically Ill Patients Data : 02/27/20 03:46 02/27/20 03:46 Micro: Microbiology 02/25/20 09:24 Urine Culture - Final Urine,Clean Catch Escherichia coli 02/25/20 09:27 Blood Culture - Preliminary Blood Gram Negative Rods 02/25/20 09:27 Blood Culture - Preliminary Blood Gram Negative Rods 02/26/20 14:00 Gram Stain - Final Peritoneal Fluid A&P Assessment and plan (1) Abdominal pain: Peritoneal fluid shows no organisms on Gram stain Concern for free air in the abdomen, patient taken for exploratory laparoscopic surgery which was negative for any perforation General surgeon, Dr. Carias consulted, appreciate recommendations and assistance in patient's care Postop day #2 diagnostic laparoscopy Abdominal pain is improved, increase diet to renal dialysis diet today Status: Resolved (2) Acute cystitis: Urine culture showing E. coli, blood culture showing gram-negative rods, will follow up with further results Transition from Primaxin to Rocephin based on culture findings and will continue with IV antibiotics until blood cultures return Status: Acute (3) ESRD (end stage renal disease): On peritoneal dialysis Nephrology consulted, appreciate recommendations and assistance in patient's care Status: Acute (4) Diastolic CHF: Without acute exacerbation, continue close monitoring with strict intake and output as well as daily weights Status: Acute (5) Fibromyalgia: With chronic pain on daily opioids, continue home medications Status: Acute (6) Lumbar spinal stenosis: Status: Acute (7) Anxiety and depression: Status: Acute Additional A&P Information Gram-negative elias bacteremia: Continue IV antibiotics as above Bradycardia, improved, continue verapamil and continue Coreg at decreased dose History of paroxysmal atrial fibrillation: Restart home Eliquis today, continue on Coreg History of pulmonary embolism in 2017 Prior history of CVA Hypertension: Blood pressures remained stable at this time Hyperlipidemia Restrictive lung disease Plan to transfer out of the ICU today DVT prophylaxis: SCDs, restart home Eliquis Diet: Renal dialysis diet CODE STATUS: Full code Attestations Medical Necessity Statement*: Patient requires further hospitalization due to gram-negative elias bacteremia Coding Level of Care Code Acute Electrician'S Helper for Chg Fwd Diagnoses Abdominal pain R10.9 Acute cystitis N30.00 ESRD (end stage renal disease) N18.6 Diastolic CHF I50.30 Fibromyalgia M79.7 Lumbar spinal stenosis M48.061 Anxiety and depression F41.9; F32.9
[2020-02-27] MEDS: cefTRIAXone 1,000 MG in sodium chloride 0.9% (plus) 50 ML 100 MG IV (10:39)
[2020-02-27] MEDS: calcium carbonate 500 mg Chew Tablet PO (14:48)
[2020-02-27] MEDS: oxyCODONE 20 mg ER (12 HR) Tablet PO (14:48)
[2020-02-27] MEDS: apixaban 5 mg Tablet 2.5 MG PO (17:57)
[2020-02-27] MEDS: ipratropium-albuterol 3 mL Neb INHALATION (21:31)
[2020-02-28] VITALS (8 sets, daily range): BP systolic 105–166; BP diastolic 49–78; PULSE 60–90; RESP 16–20; TEMP 36.6–37.1; O2SAT 92–98; BMI 25.9
[2020-02-28] MEDS: ALPRAZolam 0.25 mg Tablet PO ×2 (00:09→23:11)
[2020-02-28 05:14] LABS: Basophils % 0.3 %; Eosinophils # 0.3 10^3/uL (0.0-0.8); Eosinophils % 4.7 %; Hematocrit 32.1 % (37.0-47.0); Hemoglobin 10.1 g/dL (11.5-15.3); Lymphocytes # 1.4 10^3/uL (0.8-4.8); Lymphocytes % 23.4 %; Mean Corpuscular HGB Conc 31.5 g/dL (30.0-36.0); Mean Corpuscular Volume 104.9 fL (81-99); Mean Platelet Volume 10.5 fL (7.4-10.4); Monocytes # 0.8 10^3/uL (0.2-0.9); Monocytes % 12.6 %; Neutrophils # 3.48 10^3/uL (1.8-7.7); Neutrophils % 58.8 %; Nucleated Red Blood Cells % 0 %; Platelet Count 147 10^3/cmm (130-400); Red Blood Count 3.06 10^6/uL (4.1-5.3); Red Cell Distribution Width 13.3 % (12.1-15.1); White Blood Count 5.9 10^3/uL (4.0-10.0)
[2020-02-28 05:43] LABS: Anion Gap 10.9 (5-19); Blood Urea Nitrogen 48 mg/dL (8-23); Carbon Dioxide 35 mmol/L (22-29); Chloride 97 mmol/L (98-107); Glucose 89 mg/dL (65-115); Osmolality Calculated 286 mOsm/kg (285-295); Potassium 3.9 mmol/L (3.5-5.1); Sodium 139 mmol/L (136-145)
[2020-02-28] MEDS: potassium chloride ER 10 mEq Tablet 20 MEQ PO ×2 (08:12→18:05)
[2020-02-28] MEDS: carvedilol 12.5 mg Tablet PO ×2 (08:12→18:05)
[2020-02-28] MEDS: citalopram 20 mg Tablet 10 MG PO (08:12)
[2020-02-28] MEDS: pantoprazole DR 40 mg Tablet PO (08:12)
[2020-02-28] MEDS: isosorbide mononitrate ER 30 mg Tablet PO (08:13)
[2020-02-28] MEDS: apixaban 5 mg Tablet 2.5 MG PO ×2 (08:13→18:05)
[2020-02-28] MEDS: fluconazole 100 mg Tablet PO (08:13)
[2020-02-28] MEDS: bumetanide 1 mg Tablet 2 MG PO ×2 (08:13→18:05)
[2020-02-28] MEDS: nystatin powder 15 gm Btl 1 APPLIC TOPICAL ×2 (08:26→18:11)
[2020-02-28] MEDS: verapamil ER 180 mg Tablet PO (08:46)
--- NOTE | 2020-02-28 10:03 | PM.PN ---
Subjective Subjective: Interval history: Feelng better, OOB to chair, eating breakfast. No bowel movement. Reports abdominal discomfort after eating. Urine output may not be recorded accurately. PVR has not been checked Medications: Reviewed: Yes Vitals/I&O/Wt Last Vital Signs Temp 98.5 F 02/28/20 08:00 Pulse 87 02/28/20 09:07 Resp 16 02/28/20 09:07 BP 166/78 02/28/20 08:00 Pulse Ox 92 02/28/20 09:07 02/27/20 02/28/20 02/28/20 22:59 06:59 14:59 Intake Total 390 / 890 50 / 50 Output Total 150 / 150 Balance 390 / 490 -100 / -100 Weight last 48 hrs Weight 68.492 kg Weight 66.406 kg Physical Exam Const: COMMON NORMALS: no acute distress GENERAL APPEARANCE: cooperative Resp: COMMON NORMALS: normal respiratory effort and clear to auscultation bilaterally AUSCULTATION: clear to auscultation bilaterally Cardio: COMMON NORMALS: regular rate and regular rhythm RATE: regular rate RHYTHM: regular rhythm Extremity: GENERAL: Yes edema (trace) Urinary Catheter Management^: Paula: Cath Placed During This Visit: no Reason for Continuing Indwelling Catheter: Accurate Measurement of Urinary Output in Critically Ill Patients Data : 02/28/20 04:23 02/28/20 04:23 Micro: Microbiology 02/25/20 09:24 Urine Culture - Final Urine,Clean Catch Escherichia coli 02/25/20 09:27 Blood Culture - Preliminary Blood Gram Negative Rods 02/25/20 09:27 Blood Culture - Preliminary Blood Gram Negative Rods 02/26/20 14:00 Gram Stain - Final Peritoneal Fluid A&P Additional A&P Information Impression: 1. ESRD on peritoneal dialysis s/p laporoscopy for evaluation of intraperitoneal air - source not found. PD on hold at this time. 2. Urosepsis, e. coli, in blood and urine, sensitive to ceftrixone. History of UTI. Possible urine retention. Assess PVR 3. Hypokalemia, improved 4. Anemia 5. Hypertension 6. History of CHF, CVA, PE, has resumed eliquis Recommendation: repeat blood culture. follow PVRs. Continue to hold PD. Attestations Medical Necessity Statement*: per primary service Time Spent in Patient Care: 16 - 35 minutes Coding Level of Care Code Acute Sustainability Coach for Alyson Abdullahi
[2020-02-28] MEDS: polyethylene glycol 3350 Pkt 17 gm PO (10:48)
[2020-02-28] MEDS: cefTRIAXone 1,000 MG in sodium chloride 0.9% (plus) 50 ML 100 MG IV (10:49)
--- NOTE | 2020-02-28 11:01 | PC.NURSE ---
Patient had 486 PVR in bladder. Nurse notified.
[2020-02-28] MEDS: oxyCODONE 20 mg ER (12 HR) Tablet PO (14:14)
[2020-02-28] MEDS: tamsulosin 0.4 mg Capsule PO (14:14)
--- NOTE | 2020-02-28 16:17 | PM.PN ---
Subjective Subjective: Interval history: Patient awake in bed at time of exam this morning. She reported that she has a little bit of stomach discomfort after eating but no nausea, has not had a bowel movement yet but passing gas. Patient had no chest pain or shortness of breath. Medications: Reviewed: Yes Vitals/I&O/Wt Last Vital Signs Temp 98.7 F 02/28/20 11:43 Pulse 84 02/28/20 11:43 Resp 16 02/28/20 14:14 BP 139/52 02/28/20 14:27 Pulse Ox 92 02/28/20 09:07 02/28/20 02/28/20 02/28/20 06:59 14:59 22:59 Intake Total 460 / 460 Output Total 630 / 630 Balance -170 / -170 Weight last 48 hrs Weight 68.492 kg Weight 66.406 kg Physical Exam Const: COMMON NORMALS: patient oriented x3 and alert GENERAL APPEARANCE: cooperative ORIENTATION/CONSCIOUSNESS: Yes awake, Yes oriented to person, Yes oriented to place and Yes oriented to time HENMT: COMMON NORMALS: normocephalic and atraumatic HEAD & SCALP: normocephalic and atraumatic Eye: COMMON NORMALS: Equal, round and reactive pupils present PUPIL: Yes Equal, round and reactive pupils present Neck/C-Spine: COMMON NORMALS: supple GENERAL: Yes normal visual inspection Resp: COMMON NORMALS: normal respiratory effort and clear to auscultation bilaterally EFFORT & INSPECTION: Yes able to speak in complete sentences AUSCULTATION: clear to auscultation bilaterally, no rhonchi and no wheezes Cardio: COMMON NORMALS: regular rate, regular rhythm and No murmurs present (Cardio) RATE: regular rate RHYTHM: regular rhythm GI: OTHER: Soft, nontender, nondistended, normal bowel sounds, PD catheter in place with no surrounding erythema or drainage : COMMON NORMALS: Yes no CVA tenderness BLADDER/KIDNEY EXAM: Yes no CVA tenderness Back/Pelvis: COMMON NORMALS: no CVA tenderness Extremity: COMMON NORMALS: no calf tenderness NARRATIVE EXTREMITY EXAM: non pitting edema in the lower extremities bilaterally, negative Homans sign in the lower extremities bilaterally Neuro: COMMON NORMALS: patient oriented x3, CN's II-XII intact bilaterally, moves all extremities and no focal motor deficits SENSORIUM/ORIENTATION: Yes alert, Yes oriented to person, Yes oriented to place and Yes oriented to time SPEECH: speech normal Psych: COMMON NORMALS: mental status grossly normal and cooperative Skin: COMMON NORMALS: no rashes or lesions noted GENERAL SKIN EXAM: no rashes or lesions noted Urinary Catheter Management^: Paula: Cath Placed During This Visit: no Reason for Continuing Indwelling Catheter: Accurate Measurement of Urinary Output in Critically Ill Patients Data : 02/28/20 04:23 02/28/20 04:23 Micro: Microbiology 02/26/20 14:00 Gram Stain - Final Peritoneal Fluid Body Fluid Culture - Preliminary 02/27/20 00:56 Body Fluid Culture - Preliminary Peritoneal Fluid 02/25/20 09:27 Blood Culture - Preliminary Blood Escherichia coli 02/25/20 09:27 Blood Culture - Preliminary Blood Escherichia coli 02/28/20 10:42 Blood Culture - Preliminary Blood SPECIMEN COLLECTED 02/28/20 10:42 Blood Culture - Preliminary Blood SPECIMEN COLLECTED A&P Assessment and plan (1) Abdominal pain: Peritoneal fluid shows no organisms on Gram stain, culture shows no growth to date Concern for free air in the abdomen, patient taken for exploratory laparoscopic surgery which was negative for any perforation General surgeon, Dr. Carias consulted, appreciate recommendations and assistance in patient's care Postop day #3 diagnostic laparoscopy Abdominal pain is improved, continue on renal dialysis diet Status: Resolved (2) Acute cystitis: Urine culture showing E. coli, blood culture showing E. coli Repeat blood cultures ordered and pending Continue on IV Rocephin Status: Acute (3) ESRD (end stage renal disease): On peritoneal dialysis, holding PD at this time due to scant amount of blood following surgery. We will follow-up with nephrology recommendations Nephrology consulted, appreciate recommendations and assistance in patient's care Status: Acute (4) Diastolic CHF: Without acute exacerbation, continue close monitoring with strict intake and output as well as daily weights Status: Acute (5) Fibromyalgia: With chronic pain on daily opioids, continue home medications Status: Acute (6) Lumbar spinal stenosis: Status: Acute (7) Anxiety and depression: Status: Acute Additional A&P Information Urinary retention: Continue monitoring postvoid residuals, intermittent straight cath as needed. Started on Flomax. Will require outpatient urology follow-up Gram-negative elias bacteremia: Continue IV antibiotics as above Bradycardia, improved, continue verapamil and continue Coreg at decreased dose History of paroxysmal atrial fibrillation: Restart home Eliquis today, continue on Coreg History of pulmonary embolism in 2017 Prior history of CVA Hypertension: Blood pressures remained stable at this time Hyperlipidemia Restrictive lung disease DVT prophylaxis: SCDs, restart home Eliquis Diet: Renal dialysis diet CODE STATUS: Full code Attestations Medical Necessity Statement*: Patient requires further hospitalization due to gram-negative elias bacteremia Coding Level of Care Code Acute Clinical Trials Manager for Chg Fwd Diagnoses Abdominal pain R10.9 Acute cystitis N30.00 ESRD (end stage renal disease) N18.6 Diastolic CHF I50.30 Fibromyalgia M79.7 Lumbar spinal stenosis M48.061 Anxiety and depression F41.9; F32.9
[2020-02-28] MEDS: HYDROcodone-acetaminophen 7.5-325 mg Tablet 1 TAB PO (18:09)
[2020-02-29] VITALS (10 sets, daily range): BP systolic 121–150; BP diastolic 57–76; PULSE 60–86; RESP 16–20; TEMP 36.4–36.9; O2SAT 2–99
[2020-02-29] MEDS: oxyCODONE 20 mg ER (12 HR) Tablet PO ×2 (02:43→13:07)
[2020-02-29 07:24] LABS: Basophils % 0.4 %; Eosinophils # 0.3 10^3/uL (0.0-0.8); Eosinophils % 5.8 %; Hemoglobin 10.3 g/dL (11.5-15.3); Lymphocytes # 1.5 10^3/uL (0.8-4.8); Lymphocytes % 28.1 %; Mean Corpuscular HGB Conc 32.2 g/dL (30.0-36.0); Mean Corpuscular Hemoglobin 33.7 pg (28.0-34.0); Mean Corpuscular Volume 104.6 fL (81-99); Mean Platelet Volume 9.8 fL (7.4-10.4); Monocytes # 0.5 10^3/uL (0.2-0.9); Neutrophils # 2.89 10^3/uL (1.8-7.7); Neutrophils % 55.5 %; Nucleated Red Blood Cells % 0 %; Platelet Count 150 10^3/cmm (130-400); Red Blood Count 3.06 10^6/uL (4.1-5.3); Red Cell Distribution Width 13.2 % (12.1-15.1); White Blood Count 5.2 10^3/uL (4.0-10.0)
[2020-02-29 07:49] LABS: Anion Gap 9.7 (5-19); Blood Urea Nitrogen 50 mg/dL (8-23); Calcium 8.5 mg/dL (8.5-10.5); Carbon Dioxide 37 mmol/L (22-29); Chloride 98 mmol/L (98-107); Glucose 99 mg/dL (65-115); Osmolality Calculated 290 mOsm/kg (285-295); Phosphorus 3.6 mg/dL (2.5-4.5); Potassium 3.7 mmol/L (3.5-5.1); Sodium 141 mmol/L (136-145)
[2020-02-29] MEDS: bumetanide 1 mg Tablet 2 MG PO ×2 (08:20→17:25)
[2020-02-29] MEDS: apixaban 5 mg Tablet 2.5 MG PO ×2 (08:20→17:25)
[2020-02-29] MEDS: verapamil ER 180 mg Tablet PO (08:20)
[2020-02-29] MEDS: isosorbide mononitrate ER 30 mg Tablet PO (08:21)
[2020-02-29] MEDS: metOLazone 5 MG Tablet PO (08:21)
[2020-02-29] MEDS: potassium chloride ER 10 mEq Tablet 20 MEQ PO ×2 (08:21→17:25)
[2020-02-29] MEDS: tamsulosin 0.4 mg Capsule PO (08:21)
[2020-02-29] MEDS: pantoprazole DR 40 mg Tablet PO (08:21)
[2020-02-29] MEDS: citalopram 20 mg Tablet 10 MG PO (08:21)
[2020-02-29] MEDS: fluconazole 100 mg Tablet PO (08:21)
[2020-02-29] MEDS: carvedilol 12.5 mg Tablet PO ×2 (08:21→17:25)
[2020-02-29] MEDS: polyethylene glycol 3350 Pkt 17 gm PO (08:22)
[2020-02-29] MEDS: nystatin powder 15 gm Btl 1 APPLIC TOPICAL ×2 (08:23→17:26)
[2020-02-29] MEDS: HYDROcodone-acetaminophen 7.5-325 mg Tablet 1 TAB PO (08:30)
--- NOTE | 2020-02-29 09:14 | XR_ITS ---
WS: [id number] EXAM: AP CHEST: PORTABLE UPRIGHT DATE OF EXAM: 02/29/2020, 0939 hours COMPARISON: Chest x-ray from 02/25/2020. HISTORY: Patient is 84 years old with PICC line placement. FINDINGS: The cardiac silhouette is normal in size. The mediastinal contours show interval placement of righ t-sided PICC line ending in the SVC region. The pulmonary vascularity is normal. Slight chronic redd ng changes seen. The lungs are clear of infiltrate. There is no effusion or pneumothorax. No acute bony abnormality is seen. Surgical clips are seen overlying the left upper abdomen and left lateral chest wall region. XR/XR chest 1V portable [id number] IMPRESSION: PICC line ends in the distal SVC region. No acute pulmonary disease.
--- NOTE | 2020-02-29 09:47 | PC.NURSE ---
PICC RIGHT arm ready for use. Primary nurse notified.
[2020-02-29] MEDS: cefTRIAXone 1,000 MG in sodium chloride 0.9% (plus) 50 ML 100 MG IV (10:00)
--- NOTE | 2020-02-29 14:55 | PM.PN ---
Subjective Subjective: Interval history: Patient awake in bed at time of exam this morning. She reported that abdominal pain is improved. Discussed with patient plan for Paula catheter due to urinary retention, she verbalized understanding and agreed with plan. Medications: Reviewed: Yes Vitals/I&O/Wt Last Vital Signs Temp 97.6 F 02/29/20 11:48 Pulse 84 02/29/20 11:48 Resp 20 H 02/29/20 11:48 BP 128/64 02/29/20 11:48 Pulse Ox 95 02/29/20 11:48 02/28/20 02/29/20 02/29/20 22:59 06:59 14:59 Intake Total 320 / 780 600 / 600 Output Total 400 / 1030 700 / 1730 Balance -80 / -250 -700 / -950 600 / 600 Weight last 48 hrs Weight 65.453 kg Weight 68.492 kg Physical Exam Const: COMMON NORMALS: patient oriented x3 and alert GENERAL APPEARANCE: cooperative ORIENTATION/CONSCIOUSNESS: Yes awake, Yes oriented to person, Yes oriented to place and Yes oriented to time HENMT: COMMON NORMALS: normocephalic and atraumatic HEAD & SCALP: normocephalic and atraumatic Eye: COMMON NORMALS: Equal, round and reactive pupils present PUPIL: Yes Equal, round and reactive pupils present Neck/C-Spine: COMMON NORMALS: supple GENERAL: Yes normal visual inspection Resp: COMMON NORMALS: normal respiratory effort and clear to auscultation bilaterally EFFORT & INSPECTION: Yes able to speak in complete sentences AUSCULTATION: clear to auscultation bilaterally, no rhonchi and no wheezes Cardio: COMMON NORMALS: regular rate, regular rhythm and No murmurs present (Cardio) RATE: regular rate RHYTHM: regular rhythm GI: OTHER: Soft, nontender, nondistended, normal bowel sounds, PD catheter in place with no surrounding erythema or drainage : COMMON NORMALS: Yes no CVA tenderness BLADDER/KIDNEY EXAM: Yes no CVA tenderness Back/Pelvis: COMMON NORMALS: no CVA tenderness Extremity: COMMON NORMALS: no calf tenderness NARRATIVE EXTREMITY EXAM: non pitting edema in the lower extremities bilaterally Neuro: COMMON NORMALS: patient oriented x3, CN's II-XII intact bilaterally, moves all extremities and no focal motor deficits SENSORIUM/ORIENTATION: Yes alert, Yes oriented to person, Yes oriented to place and Yes oriented to time SPEECH: speech normal Psych: COMMON NORMALS: mental status grossly normal and cooperative Skin: COMMON NORMALS: no rashes or lesions noted GENERAL SKIN EXAM: no rashes or lesions noted Urinary Catheter Management^: Paula: Cath Placed During This Visit: no Reason for Continuing Indwelling Catheter: Accurate Measurement of Urinary Output in Critically Ill Patients Data : 02/29/20 07:17 02/29/20 07:17 Micro: Microbiology 02/26/20 14:00 Gram Stain - Final Peritoneal Fluid Body Fluid Culture - Preliminary 02/27/20 00:56 Body Fluid Culture - Preliminary Peritoneal Fluid 02/28/20 10:42 Blood Culture - Preliminary Blood NEGATIVE TO DATE 02/28/20 10:42 Blood Culture - Preliminary Blood NEGATIVE TO DATE 02/25/20 09:27 Blood Culture - Preliminary Blood Escherichia coli 02/25/20 09:27 Blood Culture - Preliminary Blood Escherichia coli A&P Assessment and plan (1) Abdominal pain: Peritoneal fluid shows no organisms on Gram stain, culture shows no growth to date Concern for free air in the abdomen, patient taken for exploratory laparoscopic surgery which was negative for any perforation General surgeon, Dr. Carias consulted, appreciate recommendations and assistance in patient's care Postop day #4 diagnostic laparoscopy Status: Resolved (2) Acute cystitis: Urine culture showing E. coli, blood culture showing E. coli Continue on IV Rocephin Repeat blood culture showed no growth to date Status: Acute (3) ESRD (end stage renal disease): On peritoneal dialysis, holding PD at this time due to scant amount of blood following surgery. We will follow-up with nephrology recommendations Peritoneal dialysis remains on hold due to blood and dialysate following surgery, plan to hold PD until Monday. We will follow-up with nephrology recommendations Status: Acute (4) Diastolic CHF: Without acute exacerbation, continue close monitoring with strict intake and output as well as daily weights Status: Acute (5) Fibromyalgia: With chronic pain on daily opioids, continue home medications Status: Acute (6) Lumbar spinal stenosis: Status: Acute (7) Anxiety and depression: Status: Acute Additional A&P Information Urinary retention: Discussed with Dr. Betts today, Paula catheter order. Patient to discharge home with Paula catheter with close urology follow-up Gram-negative elias bacteremia: Continue IV antibiotics as above Bradycardia, improved, continue verapamil and continue Coreg at decreased dose History of paroxysmal atrial fibrillation: Continue home Eliquis, continue on Coreg History of pulmonary embolism in 2017 Prior history of CVA Hypertension: Blood pressures remained stable at this time Hyperlipidemia Restrictive lung disease DVT prophylaxis: SCDs, Eliquis Diet: Renal dialysis diet CODE STATUS: Full code Attestations Medical Necessity Statement*: Patient requires further hospitalization due to end-stage renal disease on peritoneal dialysis, gram-negative elias bacteremia and complicated acute cystitis Coding Level of Care Code Acute Manufacturing Accountant for g Fwd Diagnoses Abdominal pain R10.9 Acute cystitis N30.00 ESRD (end stage renal disease) N18.6 Diastolic CHF I50.30 Fibromyalgia M79.7 Lumbar spinal stenosis M48.061 Anxiety and depression F41.9; F32.9
--- NOTE | 2020-02-29 15:28 | PC.CHAP ---
Pastoral Care Encounter/Spiritual Assessment Type of Contact [] Declined information technology technician visit [] Patient/Family/Request visit [] Outpatient visit [] Follow-up visit [] Physician referral [] Code/Alert [X] Routine visit [] Staff referral [] Actively dying [X] Patient sleeping [] Family support [] [] Out of room [] Palliative care [] [] Receiving care in room [] Pre-surgical visit [] Trauma [] Long length of stay [] ICU visit [] Other: Relational/Emotional Strength [] Patient feels connected with others/family/visitors/staff [] Distress [] Loneliness/isolation [] Abandonment Spirituality of Patient [] Person of Carolee [] Attends Scientology of their Carolee [] Believes in Prayer [] Reads Bible or Jain materials [] There are Spiritual issues to be addressed Wool Batting Worker Interventions [] Prayer [] Active listening [] Non-anxious presence [] Spiritual/emotional support [] Crisis/trauma care [] Spiritual counseling [] Bereavement support [] Provided bereavement packet [] Provided Bible/devotional materials [] Provided toy/stuffed animal, coloring book to patient or family member [] Provided Communion [] Anointing/Fine [] Salvation [] Completed spiritual assessment [] Other: Impact on Illness or Injury [] Angry [] Fearful [] Anxious [] Often cries [] Exhaustion [] Unable to work [] Unable to attend anglican [] Unable to walk/stand [] Unable to read [] Unable to drive [] Unable to eat/drink [] Unable to sleep [] Unable to be with family [] Patient intubated [] Other: Summary Time spent with patient
--- NOTE | 2020-02-29 16:14 | PM.PN ---
Subjective Subjective: Interval history: I am seeing her in follow up for her ESRD management and dialysis needs. Pt feels weak & tired. Complainingof leg pain Medications: Reviewed: Yes Vitals/I&O/Wt Last Vital Signs Temp 98.0 F 02/29/20 15:36 Pulse 60 02/29/20 15:36 Resp 18 02/29/20 15:36 BP 128/76 02/29/20 15:36 Pulse Ox 95 02/29/20 15:36 02/29/20 02/29/20 02/29/20 06:59 14:59 22:59 Intake Total 600 / 600 Output Total 700 / 1730 Balance -700 / -950 600 / 600 Weight last 48 hrs Weight 65.453 kg Weight 68.492 kg Physical Exam Const: COMMON NORMALS: no acute distress, patient oriented x3 and alert GENERAL APPEARANCE: cooperative and comfortable Resp: COMMON NORMALS: clear to auscultation bilaterally AUSCULTATION: clear to auscultation bilaterally Cardio: COMMON NORMALS: S1 normal heart sound present and S2 normal heart sound present HEART SOUNDS: S1 normal heart sound present and S2 normal heart sound present GI: AUSCULTATION: Yes normoactive bowel sounds Extremity: GENERAL: Yes edema Neuro: COMMON NORMALS: patient oriented x3 SENSORIUM/ORIENTATION: Yes alert Urinary Catheter Management^: Paula: Cath Placed During This Visit: no Reason for Continuing Indwelling Catheter: Accurate Measurement of Urinary Output in Critically Ill Patients Data : 02/29/20 07:17 02/29/20 07:17 Micro: Microbiology 02/26/20 14:00 Gram Stain - Final Peritoneal Fluid Body Fluid Culture - Preliminary 02/27/20 00:56 Body Fluid Culture - Preliminary Peritoneal Fluid 02/28/20 10:42 Blood Culture - Preliminary Blood NEGATIVE TO DATE 02/28/20 10:42 Blood Culture - Preliminary Blood NEGATIVE TO DATE 02/25/20 09:27 Blood Culture - Preliminary Blood Escherichia coli 02/25/20 09:27 Blood Culture - Preliminary Blood Escherichia coli A&P Assessment and plan (1) ESRD (end stage renal disease): No indication for dialysis today. Will monitor her symptoms & labs closely. Status: Acute (2) Anemia: Hb within goal Status: Acute (3) Hypertension: BP under control Status: Acute Attestations Medical Necessity Statement*: ESRD Coding Level of Care Code Acute Firestopper Installer for Chg Fwd Diagnoses ESRD (end stage renal disease) N18.6 Anemia D64.9 Hypertension I10
[2020-02-29] MEDS: ALPRAZolam 0.25 mg Tablet PO (21:54)
[2020-03-01] VITALS (11 sets, daily range): BP systolic 112–185; BP diastolic 48–71; PULSE 60–70; RESP 16–22; TEMP 36.7–36.9; O2SAT 93–99
[2020-03-01] MEDS: oxyCODONE 20 mg ER (12 HR) Tablet PO ×2 (02:32→14:06)
[2020-03-01] MEDS: apixaban 5 mg Tablet 2.5 MG PO ×2 (08:00→18:00)
[2020-03-01] MEDS: carvedilol 12.5 mg Tablet PO ×2 (08:01→18:01)
[2020-03-01] MEDS: potassium chloride ER 10 mEq Tablet 20 MEQ PO ×2 (08:01→18:01)
[2020-03-01] MEDS: fluconazole 100 mg Tablet PO (08:01)
[2020-03-01] MEDS: bumetanide 1 mg Tablet 2 MG PO ×2 (08:01→18:01)
[2020-03-01] MEDS: citalopram 20 mg Tablet 10 MG PO (08:01)
[2020-03-01] MEDS: pantoprazole DR 40 mg Tablet PO (08:02)
[2020-03-01] MEDS: isosorbide mononitrate ER 30 mg Tablet PO (08:02)
[2020-03-01] MEDS: tamsulosin 0.4 mg Capsule PO (08:02)
[2020-03-01] MEDS: verapamil ER 180 mg Tablet PO (08:02)
[2020-03-01] MEDS: HYDROcodone-acetaminophen 7.5-325 mg Tablet 1 TAB PO (08:03)
[2020-03-01] MEDS: polyethylene glycol 3350 Pkt 17 gm PO (08:03)
[2020-03-01] MEDS: nystatin powder 15 gm Btl 1 APPLIC TOPICAL ×2 (08:03→18:01)
[2020-03-01 08:24] LABS: Blood Urea Nitrogen 43 mg/dL (8-23); Calcium 9.2 mg/dL (8.5-10.5); Carbon Dioxide 39 mmol/L (22-29); Chloride 94 mmol/L (98-107); Glucose 101 mg/dL (65-115); Osmolality Calculated 286 mOsm/kg (285-295); Sodium 139 mmol/L (136-145)
[2020-03-01 08:27] LABS: Anion Gap 10.2 (5-19)
[2020-03-01 08:28] LABS: Potassium 4.2 mmol/L (3.5-5.1)
[2020-03-01] MEDS: cefTRIAXone 1,000 MG in sodium chloride 0.9% (plus) 50 ML 100 MG IV (09:40)
--- NOTE | 2020-03-01 10:46 | PM.DCS ---
Discharge Providers Date of Admission: 02/25/20 13:03 Date of Discharge: March 01, 2020 Attending Provider at Admission: Mirian Castaneda DO Attending Provider at Discharge: Mirian Castaneda DO Primary Care Provider: Gunnar Winn DO Diagnoses at Discharge Discharge Diagnosis (1) ESRD (end stage renal disease): Status: Acute Problem details: On Peritoneal dialysis (2) Anemia: Status: Acute Problem details: of chronic disease (3) Hypertension: Status: Acute Reason for Visit Reason for Visit: FEVER, SOB NECK PAIN Hospital Course Hospital Course: Patient was seen and evaluated in the emergency department admitted for further evaluation due to concern for abdominal pain, nausea vomiting. Patient had a CT scan of the abdomen and pelvis performed which showed concern for free air in the abdomen. General surgery was consulted and patient was taken to the OR for exploration. Nephrology was consulted due to concern for patient being on peritoneal dialysis. Patient was started on broad-spectrum antibiotics due to concern for acute cystitis as well as question of peritonitis. Patient went to the OR and no evidence of any bowel perforation, free air was felt to be secondary to peritoneal dialysis catheter. Patient was kept in the ICU and monitored closely then transition down the ICU and remained on IV antibiotics. Patient was noted to have gram-negative elias bacteremia which ultimately grew E. coli, same his urine. She did have some blood tinged fluid on return of peritoneal dialysis therefore dialysis was held. Patient continued to improve. She remained afebrile. Tolerating oral diet. Patient was also noted to have urinary retention, 1 L on admission and continued to have postvoid residuals around 400-500. Discussion with urology and patient had Paula catheter placed with plan to follow-up in the outpatient setting. Discussed this with patient she verbalized understanding and agreed with plan. Coreg was decreased during admission due to bradycardia. Physical Exam Const: COMMON NORMALS: patient oriented x3 and alert GENERAL APPEARANCE: cooperative ORIENTATION/CONSCIOUSNESS: Yes awake, Yes oriented to person, Yes oriented to place and Yes oriented to time HENMT: COMMON NORMALS: normocephalic and atraumatic HEAD & SCALP: normocephalic and atraumatic Eye: COMMON NORMALS: Equal, round and reactive pupils present PUPIL: Yes Equal, round and reactive pupils present Neck/C-Spine: COMMON NORMALS: supple GENERAL: Yes normal visual inspection Resp: COMMON NORMALS: normal respiratory effort and clear to auscultation bilaterally EFFORT & INSPECTION: Yes able to speak in complete sentences AUSCULTATION: clear to auscultation bilaterally, no rhonchi and no wheezes Cardio: COMMON NORMALS: regular rate, regular rhythm and No murmurs present (Cardio) RATE: regular rate RHYTHM: regular rhythm GI: OTHER: Soft, nontender, nondistended, normal bowel sounds, PD catheter in place with no surrounding erythema or drainage : COMMON NORMALS: Yes no CVA tenderness BLADDER/KIDNEY EXAM: Yes no CVA tenderness Back/Pelvis: COMMON NORMALS: no CVA tenderness Extremity: COMMON NORMALS: no calf tenderness NARRATIVE EXTREMITY EXAM: non pitting edema in the lower extremities bilaterally Neuro: COMMON NORMALS: patient oriented x3, CN's II-XII intact bilaterally, moves all extremities and no focal motor deficits SENSORIUM/ORIENTATION: Yes alert, Yes oriented to person, Yes oriented to place and Yes oriented to time SPEECH: speech normal Psych: COMMON NORMALS: mental status grossly normal and cooperative Skin: COMMON NORMALS: no rashes or lesions noted GENERAL SKIN EXAM: no rashes or lesions noted Urinary Catheter Management^: Paula: Cath Placed During This Visit: no Reason for Continuing Indwelling Catheter: Acute Urinary Retention or Obstruction Discharge Data Data Completed and Pending: Completed Studies During Hospitalization Category Date Time Status CT abdomen pelvis w con* [id number] Stat Cat Scan 02/25/20 09:[address] abdomen wo con [id number] Urgent Cat Scan 02/25/20 11:49 Completed XR chest 1V edvin ble [id number] NOW Exams 02/29/20 09:14 Completed XR chest 1V edvin ble [id number] Stat Exams 02/25/20 09:21 Completed Pending at discharge Category Date Time Status ES surgery / GI i mages Routine Exams 02/25/20 14:44 Taken Blood Culture Sta t Lab 02/25/20 09:27 Results Blood Culture Sta t Lab 02/28/20 10:42 Results Labs from last 24 hours 03/01/20 07:58 Sodium 139 Potassium 4.2 Chloride 94 L Carbon Dioxide 39 H Anion Gap 10.2 BUN 43 H Creatinine 3.2 H GFR Calculation Not Reportable Glucose 101 Calculated Osmolal ity 286 Calcium 9.2 Vitals: Last Vital Signs Temp 98.5 F 03/01/20 08:00 Pulse 69 03/01/20 09:03 Resp 16 03/01/20 09:03 BP 185/63 03/01/20 08:00 Pulse Ox 93 03/01/20 09:03 Discharge Plan Discharge Patient Disposition: Home Health Service Condition: Stable Prescriptions: New gentamicin 0.1 % Cream 1 applic topical DAILY 7 Days Qty: 1 RF: 0 fluconazole 100 mg Tablet 100 mg PO DAILY 5 Days Qty: 5 RF: 0 carvedilol 12.5 mg Tablet 12.5 mg PO BID 30 Days Qty: 60 RF: 0 tamsulosin 0.4 mg Capsule 0.4 mg PO DAILY 30 Days Qty: 30 RF: 0 ceftriaxone 1 gram recon soln 1 gm IVP Q24H 9 Days Qty: 9 RF: 0 Continued docusate sodium [Colace] 100 mg capsule 200 mg PO BEDTIME RF: 0 pantoprazole [Protonix] 40 mg tablet,delayed release (DR/EC) 40 mg PO BID RF: 0 bisacodyl [Dulcolax (bisacodyl)] 10 mg suppository 10 mg ME DAILY PRN (Reason: constipation) RF: 0 polyethylene glycol 3350 [Miralax] 17 gram/dose powder 17 gm PO DAILY RF: 0 acetaminophen [Tylenol] 325 mg tablet 650 mg PO Q4H PRN (Reason: Pain) RF: 0 ipratropium-albuterol 0.5 mg-3 mg(2.5 mg base)/3 mL solution for nebulization 3 ml INHALATION Q4H PRN (Reason: unknown) RF: 0 carisoprodol 350 mg tablet 350 mg PO BID PRN (Reason: unknown) RF: 0 citalopram [Celexa] 10 mg tablet 10 mg PO DAILY RF: 0 alprazolam 0.25 mg tablet 0.25 mg PO BEDTIME PRN (Reason: Anxiety) RF: 0 isosorbide mononitrate 30 mg tablet extended release 24 hr 30 mg PO DAILY RF: 0 verapamil 180 mg tablet extended release 180 mg PO DAILY RF: 0 potassium chloride 20 mEq tablet extended release 20 meq PO BID RF: 0 bumetanide 1 mg tablet 2 mg PO BID RF: 0 promethazine 12.5 mg suppository 12.5 mg ME Q8H PRN (Reason: Nausea) RF: 0 nystatin 100,000 unit/gram powder 1 applic TOPICAL BID RF: 0 oxycodone [OxyContin] 20 mg tablet,oral only,ext.rel.12 hr 20 mg PO Q12H 30 Days Qty: 60 RF: 0 hydrocodone-acetaminophen [Serena] 7.5-325 mg tablet 1 tab PO Q4H PRN (Reason: Pain) 30 Days Qty: 180 RF: 0 Hemorrhoidal 0.25-3 % Suppository 1 supp ME PRN RF: 0 simethicone 125 mg Capsule See Rx Instructions .ROUTE .COMPLEX RF: 0 metolazone 5 mg Tablet 5 mg PO EVERY OTHER DAY RF: 0 ondansetron 8 mg tablet,disintegrating 8 mg PO TID RF: 0 Enema 19-7 gram/118 mL Enema 118 ml ME DAILY PRN (Reason: Constipation) RF: 0 sorbitol 70 % Solution See Rx Instructions .ROUTE .COMPLEX RF: 0 Marybel-Eugenio Rx 1-60-300 mg-mg-mcg Tablet 1 tab PO DAILY RF: 0 Eliquis 2.5 mg Tablet 2.5 mg PO BID RF: 0 [facility] 10 billion cell -200 mg Capsule 1 cap PO DAILY RF: 0 Tucks Pads See Rx Instructions .ROUTE .COMPLEX RF: 0 Discontinued clonidine HCl 0.1 mg tablet 0.1 mg PO DAILY PRN (Reason: Blood Pressure) RF: 0 carvedilol 25 mg tablet 50 mg PO BID RF: 0 Discharge Orders: Discharge Order (Routine); Ordered 03/01/20 Ordered By: Mirian Castaneda Referrals: Tristan Horner MD [Referring] - 1-3 days Jamaal Betts MD [Physician] - 4-7 days Mirian Castaneda DO [Hospitalist] - 4-7 days Discharge Diet: Advance as tolerated Discharge Activity: Increase activity as tolerated Activity Restrictions/Additional Instructions: Coreg decreased to 12.5 mg twice daily due to slow heart rate during hospitalization Holding off on peritoneal dialysis until Monday, follow-up with Dr. Horner for further recommendations Discharge to home with home health with continued IV Rocephin for an additional 9 days Discharged with Paula catheter with plan to follow-up with Dr. Betts due to concern for urinary retention this coming week Call or present to the ED for any acute illness or concern Discharge Attestations Time Spent in Discharge Care*: greater than 30 min Specific Discharge Activities: Specific discharge activities: educating patient, discussing with vocational case manager/social workers/dc planners and documenting/other paperwork Quality Metrics Clinical Quality Measures During this hospital stay, did patient experience: None Coding Level of Care Code Acute Application Security Specialist for Chg Fwd Diagnoses ESRD (end stage renal disease) N18.6 Anemia D64.9 Hypertension I10
[2020-03-01] MEDS: hyDRALAzine 10 mg Tablet PO ×2 (14:06→20:24)
--- NOTE | 2020-03-01 15:06 | DCPLANNER ---
Pg 2 of IM updated and reviewed with pt. No questions, copy provided.
[2020-03-01] MEDS: ALPRAZolam 0.25 mg Tablet PO (20:27)
[2020-03-02] VITALS (9 sets, daily range): BP systolic 103–161; BP diastolic 55–72; PULSE 65–72; RESP 16–20; TEMP 36.6–37; O2SAT 90–97
[2020-03-02] MEDS: oxyCODONE 20 mg ER (12 HR) Tablet PO ×2 (02:16→14:16)
[2020-03-02] MEDS: tamsulosin 0.4 mg Capsule PO (09:22)
[2020-03-02] MEDS: citalopram 20 mg Tablet 10 MG PO (09:23)
[2020-03-02] MEDS: pantoprazole DR 40 mg Tablet PO (09:23)
[2020-03-02] MEDS: bumetanide 1 mg Tablet 2 MG PO ×2 (09:23→17:17)
[2020-03-02] MEDS: metOLazone 5 MG Tablet PO (09:23)
[2020-03-02] MEDS: potassium chloride ER 10 mEq Tablet 20 MEQ PO (09:23)
[2020-03-02] MEDS: carvedilol 12.5 mg Tablet PO ×2 (09:23→17:18)
[2020-03-02] MEDS: isosorbide mononitrate ER 30 mg Tablet PO (09:24)
[2020-03-02] MEDS: fluconazole 100 mg Tablet PO (09:24)
[2020-03-02] MEDS: apixaban 5 mg Tablet 2.5 MG PO ×2 (09:24→17:18)
[2020-03-02] MEDS: hyDRALAzine 10 mg Tablet PO ×2 (09:24→14:17)
[2020-03-02] MEDS: nystatin powder 15 gm Btl 1 APPLIC TOPICAL ×2 (09:25→17:20)
[2020-03-02] MEDS: verapamil ER 180 mg Tablet PO (09:25)
[2020-03-02] MEDS: cefTRIAXone 1,000 MG in sodium chloride 0.9% (plus) 50 ML 100 MG IV (09:26)
[2020-03-02] MEDS: polyethylene glycol 3350 Pkt 17 gm PO (10:11)
--- NOTE | 2020-03-02 10:12 | PM.PN ---
Subjective Subjective: Interval history: Patient awake in bed at time of exam. Discussed with patient plan for discharge and working on proper disposition planning, she verbalized understanding and agreed with plan. Patient reported abdomen continues to feel better, tolerating dialysis diet. Vitals/I&O/Wt Last Vital Signs Temp 98.5 F 03/02/20 07:36 Pulse 72 03/02/20 09:38 Resp 18 03/02/20 09:38 BP 156/63 03/02/20 07:36 Pulse Ox 96 03/02/20 09:38 03/01/20 03/02/20 03/02/20 22:59 06:59 14:59 Intake Total 360 / 770 250 / 1020 120 / 120 Output Total 400 / 1050 950 / 2000 Balance -40 / -280 -700 / -980 120 / 120 Weight last 48 hrs Weight 63.548 kg Weight 64.41 kg Physical Exam Const: COMMON NORMALS: patient oriented x3 and alert GENERAL APPEARANCE: cooperative ORIENTATION/CONSCIOUSNESS: Yes awake, Yes oriented to person, Yes oriented to place and Yes oriented to time HENMT: COMMON NORMALS: normocephalic and atraumatic HEAD & SCALP: normocephalic and atraumatic Eye: COMMON NORMALS: Equal, round and reactive pupils present PUPIL: Yes Equal, round and reactive pupils present Neck/C-Spine: COMMON NORMALS: supple GENERAL: Yes normal visual inspection Resp: COMMON NORMALS: normal respiratory effort and clear to auscultation bilaterally EFFORT & INSPECTION: Yes able to speak in complete sentences AUSCULTATION: clear to auscultation bilaterally, no rhonchi and no wheezes Cardio: COMMON NORMALS: regular rate, regular rhythm and No murmurs present (Cardio) RATE: regular rate RHYTHM: regular rhythm GI: OTHER: Soft, nontender, nondistended, normal bowel sounds, PD catheter in place with no surrounding erythema or drainage : COMMON NORMALS: Yes no CVA tenderness BLADDER/KIDNEY EXAM: Yes no CVA tenderness Back/Pelvis: COMMON NORMALS: no CVA tenderness Extremity: COMMON NORMALS: no calf tenderness NARRATIVE EXTREMITY EXAM: non pitting edema in the lower extremities bilaterally Neuro: COMMON NORMALS: patient oriented x3, CN's II-XII intact bilaterally, moves all extremities and no focal motor deficits SENSORIUM/ORIENTATION: Yes alert, Yes oriented to person, Yes oriented to place and Yes oriented to time SPEECH: speech normal Psych: COMMON NORMALS: mental status grossly normal and cooperative Skin: COMMON NORMALS: no rashes or lesions noted GENERAL SKIN EXAM: no rashes or lesions noted Urinary Catheter Management^: Paula: Cath Placed During This Visit: no Reason for Continuing Indwelling Catheter: Acute Urinary Retention or Obstruction Data : 02/29/20 07:17 03/01/20 07:58 Micro: Microbiology 02/25/20 09:27 Blood Culture - Final Blood Escherichia coli 02/25/20 09:27 Blood Culture - Final Blood Escherichia coli 02/26/20 14:00 Gram Stain - Final Peritoneal Fluid Body Fluid Culture - Final 02/27/20 00:56 Body Fluid Culture - Final Peritoneal Fluid A&P Assessment and plan (1) ESRD (end stage renal disease): On peritoneal dialysis, restart peritoneal dialysis today per nephrology Status: Acute (2) Anemia: Status: Acute (3) Hypertension: Status: Acute Additional A&P Information Urinary retention: Discussed with Dr. Betts over the weekend. Due to recurrent urinary retention Paula catheter placed, plan for outpatient urology follow-up this week. Awaiting proper disposition planning Gram-negative elias bacteremia: Continue IV antibiotics as above Bradycardia, resolved. Continue verapamil and continue Coreg at decreased dose History of paroxysmal atrial fibrillation: Continue home Eliquis, continue on Coreg History of pulmonary embolism in 2017 Prior history of CVA Hypertension: Blood pressures remained stable at this time Hyperlipidemia Restrictive lung disease DVT prophylaxis: SCDs, Eliquis Diet: Renal dialysis diet CODE STATUS: Full code Attestations Medical Necessity Statement*: Hospitalization due to acute cystitis, gram-negative elias bacteremia secondary to E. coli and end-stage renal disease on peritoneal dialysis. Awaiting proper disposition planning Coding Level of Care Code Acute Sheet Metal Work Furnace Installer for g Fwd Diagnoses ESRD (end stage renal disease) N18.6 Anemia D64.9 Hypertension I10
[2020-03-02] MEDS: ondansetron 2 mg/ML SDV 2 mL 4 MG IVP (11:59)
--- NOTE | 2020-03-02 15:06 | P.PN_ITS ---
Subjective Subjective: Interval history: nausea today, but she states this is chronic and that she takes zofran tid with meals at home awaiting placement at facility who can manage her owens and IV antibiotics. Need to also be able to perform PD Medications: Reviewed: Yes Vitals/I&O/Wt Last Vital Signs Temp 98.6 F 03/02/20 11:38 Pulse 67 03/02/20 11:38 Resp 18 03/02/20 11:38 BP 130/55 03/02/20 11:38 Pulse Ox 97 03/02/20 11:38 03/02/20 03/02/20 03/02/20 06:59 14:59 22:59 Intake Total 250 / 1020 170 / 170 Output Total 950 / 2000 Balance -700 / -980 170 / 170 Weight last 48 hrs Weight 63.548 kg Weight 64.41 kg Physical Exam Const: COMMON NORMALS: no acute distress GENERAL APPEARANCE: cooperative ORIENTATION/CONSCIOUSNESS: Yes awake Resp: COMMON NORMALS: normal respiratory effort and clear to auscultation bilaterally AUSCULTATION: clear to auscultation bilaterally Cardio: COMMON NORMALS: regular rate and regular rhythm RATE: regular rate RHYTHM: regular rhythm Extremity: COMMON NORMALS: no pedal edema Urinary Catheter Management^: Owens: Cath Placed During This Visit: no Reason for Continuing Indwelling Catheter: Acute Urinary Retention or Obstruction Data : 02/29/20 07:17 03/01/20 07:58 Other Labs: BC 02/27 and PD fluid culture no growth Micro: Microbiology 02/25/20 09:27 Blood Culture - Final Blood Escherichia coli 02/25/20 09:27 Blood Culture - Final Blood Escherichia coli A&P Additional A&P Information Impression: 1. ESRD on peritoneal dialysis s/p laporoscopy for evaluation of intraperitoneal air - source not found. PD on hold at this time to allow surgical ports to heal. No evidence of peritonitis 2. Urosepsis, e. coli, in blood and urine, sensitive to ceftrixone. History of UTI. + urine retention, now with indwelling owens. Outpatient urology follow-up planned. 3. Hypokalemia, resolved, reduce potassium; metabolic alkalosis, discontinue metalzone 4. Anemia, Hb stable 5. Hypertension, BP elevated, can increase hydralazine to 25 mg TID if persists 6. 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
[2020-03-02] MEDS: ALPRAZolam 0.25 mg Tablet PO (21:41)
[2020-03-03 03:43] VITALS: BP 159/73; PULSE 74; RESP 20; TEMP 36.4; O2SAT 91
[2020-03-03 05:02] LABS: Basophils % 0.5 %; Eosinophils # 0.3 10^3/uL (0.0-0.8); Eosinophils % 4.7 %; Hematocrit 34.3 % (37.0-47.0); Hemoglobin 10.7 g/dL (11.5-15.3); Lymphocytes # 2.3 10^3/uL (0.8-4.8); Mean Corpuscular HGB Conc 31.2 g/dL (30.0-36.0); Mean Corpuscular Hemoglobin 32.9 pg (28.0-34.0); Mean Corpuscular Volume 105.5 fL (81-99); Mean Platelet Volume 10.1 fL (7.4-10.4); Monocytes # 0.6 10^3/uL (0.2-0.9); Monocytes % 9.1 %; Neutrophils # 2.99 10^3/uL (1.8-7.7); Neutrophils % 48.4 %; Nucleated Red Blood Cells % 0 %; Platelet Count 182 10^3/cmm (130-400); Red Blood Count 3.25 10^6/uL (4.1-5.3); Red Cell Distribution Width 13.1 % (12.1-15.1); White Blood Count 6.2 10^3/uL (4.0-10.0)
[2020-03-03 05:32] LABS: Anion Gap 10.8 (5-19); Blood Urea Nitrogen 48 mg/dL (8-23); Calcium 8.9 mg/dL (8.5-10.5); Chloride 92 mmol/L (98-107); Glucose 95 mg/dL (65-115); Osmolality Calculated 288 mOsm/kg (285-295); Phosphorus 3.4 mg/dL (2.5-4.5); Potassium 3.8 mmol/L (3.5-5.1); Sodium 140 mmol/L (136-145)
[2020-03-03 05:38] LABS: Carbon Dioxide 41 mmol/L (22-29)
[2020-03-03 07:58] VITALS: PULSE 78; RESP 16; O2SAT 85
[2020-03-03 08:00] VITALS: BP 152/68; PULSE 70; RESP 14; TEMP 36.4; O2SAT 95
[2020-03-03] MEDS: ondansetron 2 mg/ML SDV 2 mL 4 MG IVP (08:03)
[2020-03-03] MEDS: potassium chloride ER 10 mEq Tablet 20 MEQ PO (08:25)
[2020-03-03] MEDS: polyethylene glycol 3350 Pkt 17 gm PO (08:25)
[2020-03-03] MEDS: hyDRALAzine 10 mg Tablet PO (08:26)
[2020-03-03] MEDS: bumetanide 1 mg Tablet 2 MG PO (08:26)
[2020-03-03] MEDS: apixaban 5 mg Tablet 2.5 MG PO (08:26)
[2020-03-03] MEDS: isosorbide mononitrate ER 30 mg Tablet PO (08:26)
[2020-03-03] MEDS: verapamil ER 180 mg Tablet PO (08:26)
[2020-03-03] MEDS: fluconazole 100 mg Tablet PO (08:27)
[2020-03-03] MEDS: carvedilol 12.5 mg Tablet PO (08:27)
[2020-03-03] MEDS: tamsulosin 0.4 mg Capsule PO (08:27)
[2020-03-03] MEDS: citalopram 20 mg Tablet 10 MG PO (08:27)
[2020-03-03] MEDS: pantoprazole DR 40 mg Tablet PO (08:27)
[2020-03-03] MEDS: nystatin powder 15 gm Btl 1 APPLIC TOPICAL (08:28)
[2020-03-03] MEDS: cefTRIAXone 1,000 MG in sodium chloride 0.9% (plus) 50 ML 100 MG IV (08:32)
--- NOTE | 2020-03-03 08:42 | DCPLANNER ---
Pg 2 of IM updated and reviewed with pt. No questions, copy provided. She is being d/c'd today and states that she is ready.
--- NOTE | 2020-03-03 10:29 | PM.PN ---
Subjective Subjective: Interval history: Patient seen and evaluated this morning. She reported slight nausea that is her baseline. Discussed with her plan for discharge today as disposition is now been obtained. Patient verbalized understanding and agreed with plan. Vitals/I&O/Wt Last Vital Signs Temp 97.5 F L 03/03/20 08:00 Pulse 70 03/03/20 08:00 Resp 14 03/03/20 08:00 BP 152/68 03/03/20 08:00 Pulse Ox 95 03/03/20 08:00 03/02/20 03/03/20 03/03/20 22:59 06:59 14:59 Intake Total 240 / 410 250 / 250 Output Total 0 / 0 1050 / 1050 Balance 240 / 410 -1050 / -640 250 / 250 Weight last 48 hrs Weight 64.047 kg Weight 63.548 kg Physical Exam Const: COMMON NORMALS: patient oriented x3 and alert GENERAL APPEARANCE: cooperative ORIENTATION/CONSCIOUSNESS: Yes awake, Yes oriented to person, Yes oriented to place and Yes oriented to time HENMT: COMMON NORMALS: normocephalic and atraumatic HEAD & SCALP: normocephalic and atraumatic Eye: COMMON NORMALS: Equal, round and reactive pupils present PUPIL: Yes Equal, round and reactive pupils present Neck/C-Spine: COMMON NORMALS: supple GENERAL: Yes normal visual inspection Resp: COMMON NORMALS: normal respiratory effort and clear to auscultation bilaterally EFFORT & INSPECTION: Yes able to speak in complete sentences AUSCULTATION: clear to auscultation bilaterally, no rhonchi and no wheezes Cardio: COMMON NORMALS: regular rate, regular rhythm and No murmurs present (Cardio) RATE: regular rate RHYTHM: regular rhythm GI: OTHER: Soft, nontender, nondistended, normal bowel sounds, PD catheter in place with no surrounding erythema or drainage : COMMON NORMALS: Yes no CVA tenderness BLADDER/KIDNEY EXAM: Yes no CVA tenderness Back/Pelvis: COMMON NORMALS: no CVA tenderness Extremity: COMMON NORMALS: no calf tenderness NARRATIVE EXTREMITY EXAM: non pitting edema in the lower extremities bilaterally Neuro: COMMON NORMALS: patient oriented x3, CN's II-XII intact bilaterally, moves all extremities and no focal motor deficits SENSORIUM/ORIENTATION: Yes alert, Yes oriented to person, Yes oriented to place and Yes oriented to time SPEECH: speech normal Psych: COMMON NORMALS: mental status grossly normal and cooperative Skin: COMMON NORMALS: no rashes or lesions noted GENERAL SKIN EXAM: no rashes or lesions noted Urinary Catheter Management^: Paula: Cath Placed During This Visit: no Reason for Continuing Indwelling Catheter: Acute Urinary Retention or Obstruction Data : 03/03/20 04:45 03/03/20 04:45 Micro: Microbiology 02/25/20 09:27 Blood Culture - Final Blood Escherichia coli 02/25/20 09:27 Blood Culture - Final Blood Escherichia coli A&P Assessment and plan (1) ESRD (end stage renal disease): On peritoneal dialysis, restart peritoneal dialysis per nephrology Status: Acute (2) Anemia: Status: Acute (3) Hypertension: Status: Acute Additional A&P Information Urinary retention: Discussed with Dr. Betts over the weekend. Due to recurrent urinary retention Paula catheter placed, plan for outpatient urology follow-up this week. Awaiting proper disposition planning Gram-negative elias bacteremia: Continue IV antibiotics as above Bradycardia, resolved. Continue verapamil and continue Coreg at decreased dose History of paroxysmal atrial fibrillation: Continue home Eliquis, continue on Coreg History of pulmonary embolism in 2017 Prior history of CVA Hypertension: Blood pressures remained stable at this time Hyperlipidemia Restrictive lung disease Please see discharge summary with discharge date of 03/03/2020 No changes to discharge summary other than awaiting disposition planning with discharge plan to [facility] facility DVT prophylaxis: SCDs, Eliquis Diet: Renal dialysis diet CODE STATUS: Full code Attestations Medical Necessity Statement*: Discharged today. 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
--- NOTE | 2020-03-03 10:41 | PC.NURSE ---
Pt to transport van via [facility]. All belongings including her tablet with her. Pt discharged to assisted living facility.
== END 2020-03-03 10:30 | disposition skilled nursing facility (03) | DRG 356 ==
LOC: ER 09:32 → MEDSURG 13:21 → ICU 13:38 → MEDSURG 02-27 13:05
PROVIDERS: Internal Medicine; Surgery; Admitting Provider Family Medicine; Emergency Provider Family Medicine; Visit Provider Family Medicine
PROC: 0WJH4ZZ Inspection of Retroperitoneum, Percutaneous Endoscopic Approach (ICD-10-PCS; CPT 49320; principal; 2020-02-25 15:00)
PROC: 0DJ08ZZ Inspection of Upper Intestinal Tract, Via Natural or Artificial Opening Endoscopic (ICD-10-PCS; CPT 43235; 2020-02-25 15:00)
DX: R10.9 Unspecified abdominal pain (principal); N18.6 End stage renal disease; N30.00 Acute cystitis without hematuria; I13.2 Hypertensive heart and chronic kidney disease with heart failure and with stage 5 chronic kidney disease, or end stage renal disease; I50.32 Chronic diastolic (congestive) heart failure; B37.81 Candidal esophagitis; Z99.2 Dependence on renal dialysis; G89.29 Other chronic pain; Z79.891 Long term (current) use of opiate analgesic; K21.9 Gastro-esophageal reflux disease without esophagitis; D63.1 Anemia in chronic kidney disease; F41.8 Other specified anxiety disorders; M79.7 Fibromyalgia; Z85.3 Personal history of malignant neoplasm of breast; Z86.711 Personal history of pulmonary embolism; Z86.73 Personal history of transient ischemic attack (TIA), and cerebral infarction without residual deficits; M48.061 Spinal stenosis, lumbar region without neurogenic claudication; M19.90 Unspecified osteoarthritis, unspecified site; I48.0 Paroxysmal atrial fibrillation; J98.4 Other disorders of lung; Z96.642 Presence of left artificial hip joint; E87.6 Hypokalemia; R33.9 Retention of urine, unspecified; B96.20 Unspecified Escherichia coli [E. coli] as the cause of diseases classified elsewhere; R00.1 Bradycardia, unspecified
CPT/HCPCS: 12345; 36415; 36569; 36600; 51702; 51798; 71045; 74150; 74177; 80048; 80051; 80053; 80500; 81001; 82550; 82810; 83605; 83690; 83735; 83986; 84100; 84132; 85025; 85610; 87040; 87070; 87075; 87077; 87086; 87186; 87205; 87426; 89050; 93005; 94640; 96372; 96375; 99284; C9113; J0131; J0330; J0696; J0743; J1644; J2405; J2704; J2710; J3010; J3480; J3490; J7030; Q3014; Q9967

== ENCOUNTER 2020-05-02 14:50 | Outpatient (CLI) | payer MEDICARE, OTHER, SELFPAY ==
[2020-05-02 15:34] LABS: Add Urine Culture? No; Add Urine Microscopic? YES; Bacteria Urine TRACE /hpf; Bilirubin Urine Neg (Negative); Blood Urine Neg (Negative); Glucose Urine UA Norm (Normal); Ketones Urine Negative (Negative); Leukocyte Esterase Urine Trace (Negative); Nitrate Urine Negative (Negative); Protein Urine Neg (Negative); Urine Appearance Clear (CLEAR); Urine Color Yellow (Yellow); Urobilinogen Urine Norm (Negative); WBC Urine 0-4 /hpf (0-5); pH Urine 5 (5-7)
== END 2020-05-02 14:51 | disposition home or self-care (01) ==
LOC: LAB 14:52
PROVIDERS: PCP Family Medicine; Visit Provider Family Medicine
DX: N39.0 Urinary tract infection, site not specified (principal)
CPT/HCPCS: 81001; 87086

== ENCOUNTER 2020-07-13 11:19 | Outpatient (CLI) | payer MEDICARE, OTHER, SELFPAY | END 2020-07-13 11:20 | disposition home or self-care (01) | PROVIDERS: PCP Family Medicine; Visit Provider Family Medicine | DX: N39.0 Urinary tract infection, site not specified (principal) | CPT/HCPCS: 87086 ==

== ENCOUNTER 2022-02-08 14:54 | Outpatient (CLI) | payer MEDICARE, OTHER, SELFPAY ==
[2022-02-08 16:22] LABS: Add Urine Microscopic? YES; Bilirubin Urine Neg (Negative); Blood Urine Neg (Negative); Glucose Urine UA Norm (Normal); Ketones Urine Negative (Negative); Leukocyte Esterase Urine 2+ (Negative); Nitrate Urine Positive (Negative); Protein Urine 1+ (Negative); Urine Appearance Turbid (CLEAR); Urine Color Yellow (Yellow); Urobilinogen Urine Norm (Negative); pH Urine 7 (5-7)
[2022-02-08 16:23] LABS: Add Urine Culture? Yes; Bacteria Urine 4+ /hpf; RBC Urine 0-4 /hpf (0-2); Squamous Epithelial Cell Urine 0-4 /hpf (0-5); WBC Urine TOO NUMEROUS TO CNT /hpf (0-5)
== END 2022-02-08 14:55 | disposition home or self-care (01) ==
LOC: LAB 14:56
PROVIDERS: PCP Family Medicine; Visit Provider Family Medicine
DX: N39.0 Urinary tract infection, site not specified (principal)
CPT/HCPCS: 81001; 87086

== ENCOUNTER 2022-07-24 13:39 | Outpatient (CLI) | payer MEDICARE, OTHER, SELFPAY | END 2022-07-24 13:40 | disposition home or self-care (01) | PROVIDERS: PCP Family Medicine; Visit Provider Family Medicine | DX: R19.5 Other fecal abnormalities (principal) | CPT/HCPCS: 87493; 87506 ==

== ENCOUNTER 2022-07-28 06:27 | Emergency (ER) | payer MEDICARE, OTHER, SELFPAY ==
--- NOTE | 2022-07-28 06:28 | ECG_ITS ---
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 Measurements Intervals [place] Rate: 66 P: 0 OR: 0 QRS: 30 QRSD: 92 T: 44 QT: 404 QTc: 425 Interpretive Statements SINUS RHYTHM Compared to ECG 02/25/2020 09:05:48 First degree AV block no longer present T-wave abnormality no longer present Electronically Signed On 07-28-2022 14:42:58 CLINICAL TECH by Cristhian Harden M.D. [email or web address]
--- NOTE | 2022-07-28 06:28 | XRR_ITS ---
PROCEDURE INFORMATION: Exam: XR Chest Exam date and time: 07/28/2022 6:40 AM Age: 87 years old Clinical indication: Cough; Additional info: Dyspnea/cough TECHNIQUE: Imaging protocol: Radiologic exam of the chest. Views: 1 view. COMPARISON: CR XR chest 1V portable [id number] 12/31/2021 11:20 PM FINDINGS: Lungs: The lung parenchyma is clear. Pleural spaces: No pneumothorax. No pleural effusion. Heart/Mediastinum: The cardiomediastinal silhouette is within normal limits. Bones/joints: Unremarkable. XR/XR chest 1V portable [id number] IMPRESSION: No acute cardiopulmonary abnormality.
[2022-07-28 06:30] VITALS: BMI 19.7
[2022-07-28 06:35] VITALS: BP 162/60; PULSE 65; RESP 16; TEMP 37.5; O2SAT 89
--- NOTE | 2022-07-28 06:39 | CTR_ITS ---
PROCEDURE INFORMATION: Exam: CT Cervical Spine Without Contrast Exam date and time: 07/28/2022 7:03 AM Age: 87 years old Clinical indication: Injury or trauma; Fall; Blunt trauma TECHNIQUE: Imaging protocol: Computed tomography of the cervical spine without contrast. Radiation optimization: All CT scans at this facility use at least one of these dose optimization techniques: automated exposure control; mA and/or kV adjustment per patient size (includes targeted exams where dose is matched to clinical indication); or iterative reconstruction. COMPARISON: NM bone scan whole body* [id number] 03/02/2018 9:37 AM RADIATION DOSE METRICS: Total DLP (mGy-cm): 124.7 FINDINGS: Bones/joints: The cervical spine demonstrates a kyphotic curvature. Grade 1 anterolisthesis of C4 on C5 by approximately 3 mm. The vertebral bodies maintain normal height. No fracture identified. Multilevel loss of intervertebral disc height throughout the cervical spine with endplate degenerative changes. Multilevel facet arthropathy. Multilevel bilateral neural foraminal narrowing. Anterior subluxation/dislocation of the left temporomandibular joint. Mild anterior subluxation of the right temporomandibular joint. Lungs: The visualized lung apices are normal. Soft tissues: No prevertebral soft tissue swelling identified. CT/CT cervical spin wo con* [id number] IMPRESSION: 1. No acute fracture or traumatic malalignment identified within the cervical spine. 2. Multilevel degenerative changes. 3. Subluxation/dislocation of the temporomandibular joints.
--- NOTE | 2022-07-28 06:39 | XRR_ITS ---
PROCEDURE INFORMATION: Exam: XR Right Knee Exam date and time: 07/28/2022 6:43 AM Age: 87 years old Clinical indication: Pain; Knee; Right TECHNIQUE: Imaging protocol: Radiologic exam of the Right knee. Views: 3 views. COMPARISON: No relevant prior studies available. FINDINGS: Bones/joints: The medial joint space is narrowed with osteophyte formation. The lateral joint space is well maintained. No fracture identified. Flabella noted. Soft tissues: No knee joint effusion is present. XR/XR knee RT 3V* [id number] IMPRESSION: 1. No evidence of acute fracture or dislocation. 2. 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
--- NOTE | 2022-07-28 06:39 | XRR_ITS ---
PROCEDURE INFORMATION: Exam: XR Right Shoulder Exam date and time: 07/28/2022 6:43 AM Age: 87 years old Clinical indication: Pain; Shoulder; Right TECHNIQUE: Imaging protocol: Radiologic exam of the Right shoulder. Views: 2 or more views. COMPARISON: CR (CHEST, ) 07/28/2022 6:40 AM FINDINGS: Bones/joints: The glenohumeral and acromioclavicular joints are normally aligned. No acute fracture is seen. Lungs: Visualized portions of the chest are normal. Soft tissues: Unremarkable. XR/XR shoulder RT min 2V* [id number] IMPRESSION: No evidence of acute fracture or dislocation.
--- NOTE | 2022-07-28 06:40 | CTR_ITS ---
PROCEDURE INFORMATION: Exam: CT Head Without Contrast Exam date and time: 07/28/2022 7:03 AM Age: 87 years old Clinical indication: Injury or trauma; Blunt trauma (contusions or hematomas); Consciousness not specified; Injury details: Fall hitting head on carpet. PT has a hematoma to RT side of forehead. TECHNIQUE: Imaging protocol: Computed tomography of the head without contrast. Radiation optimization: All CT scans at this facility use at least one of these dose optimization techniques: automated exposure control; mA and/or kV adjustment per patient size (includes targeted exams where dose is matched to clinical indication); or iterative reconstruction. COMPARISON: CT head wo con* [id number] 10/04/2017 11:18 AM RADIATION DOSE METRICS: Total DLP (mGy-cm): 971.08 FINDINGS: Brain: No acute hemorrhage identified. No large territorial areas of hypoattenuation concerning for ischemic infarct identified. No intracranial mass effect. Subcortical and periventricular white matter hypoattenuation likely consistent with mild chronic microvascular ischemic disease. Cerebral ventricles: The ventricles are within normal limits. Paranasal sinuses: The visualized sinuses are unremarkable. Mastoid air cells: The visualized mastoid air cells are well aerated. Bones/joints: The osseous structures are intact. Soft tissues: Extracranial superficial soft tissue swelling overlying the right frontal convexity. CT/CT head wo con* [id number] IMPRESSION: 1. Right frontal extracranial superficial soft tissue swelling. No underlying cranial fracture identified. 2. No acute intracranial abnormality. 3. Mild chronic microvascular ischemic disease.
--- NOTE | 2022-07-28 06:45 | ED_ITS ---
HPI - Fall General: Chief Complaint: Fall Stated Complaint: fall Time Seen by Provider: 07/28/22 06:28 Source: patient Mode of arrival: EMS History of Present Illness: 87-year-old female presents emergency room from alf for ground-level mechanical fall she has frequent falls. She fell just prior to arrival.. She was getting out of a chair going to get a magazine and fell on her right side she has a hematoma on the right forehead. She denies loss consciousness she complaining of pain at site of hematoma on the head she also has pain in her right shoulder and some mild pain in her right knee although she states the right knee is a chronic pain. She has other injuries from previous falls including skin tear on the left elbow. She was on Eliquis it still listed on her medication list but she tells me she has not been taking it it is listed as being on hold. MD complaint: fall Onset (ago): minute(s) Fall from: standing Place fall occurred: alf/SNF Loss of consciousness: None Prolonged down time: no Symptoms prior to fall: none Context: tripped/slipped Location of injury: head Location of injury - extremities: Right: shoulder and knee Severity: mild Associated symptoms-after fall: Reports difficulty walking; Denies abdominal pain, chest pain, confusion, headache(s), hematuria, lightheadedness, neck pain, numbness, short of breath, vertigo or weakness Review of Systems Const: Denies: fever(s), chills, body aches, change in appetite, fatigue or malaise ENMT: Denies: throat pain, ear or mastoid pain, nasal discharge or nasal congestion Card: Denies: chest pain or lightheadedness Resp: Denies: dyspnea, productive cough or non-productive cough GI: Denies: abdominal pain : Denies: dysuria, urinary frequency, urinary urgency or hematuria Musc: Denies: neck pain Skin/Breast: Denies: rash or pruritus Neuro: Reports: difficulty walking; Denies: headache(s), vertigo or confusion PFSH ED PFSH: Medical History Anemia of chronic disease Anxiety and depression DDD (degenerative disc disease) Decubitus ulcer, buttock, right, unstageable Diastolic CHF ESRD (end stage renal disease) Fibromyalgia GERD (gastroesophageal reflux disease) History of breast cancer Previously followed by Dr. Santoyo History of pulmonary embolus (PE) 08/2016 History of stroke 11/14/16 Hyperlipidemia Hypertension Incomplete bladder emptying Internal and external bleeding hemorrhoids Lumbar spinal stenosis Osteoarthritis Paroxysmal A-fib Peritoneal dialysis catheter in place Recurrent UTI Restrictive lung disease Urinary retention Surgical History History of back surgery History of esophagogastroduodenoscopy (EGD) 08/03/17 mild gastritis and duodenitis History of hemiarthroplasty of left hip 11/18/18: Dr. Mendoza History of hysterectomy History of lumpectomy of left breast History of right cataract surgery Family History Other Cancer Denies family history of Anesthesia complication Bleeding disorder Social History Second hand smoke exposure: No Alcohol intake: never Adopted: No Caregiver/support person: Yes Lives independently: Yes Housing: Assisted Living Facility Marital status: Marital status details: with dementia Additional social history: FULL CODE DISCUSSED WITH PATIENT ON 02/04/20 Physical Exam Const: GENERAL APPEARANCE: cooperative and comfortable ORIENTATION/CONSCIOUSNESS: Yes awake, Yes oriented to person, Yes oriented to place and Yes oriented to time HENMT: COMMON NORMALS: normocephalic, hearing grossly normal bilaterally, external ears normal, EAC's normal, TM's normal bilaterally, Normal nasal mucous membranes and turbinates present, moist oral mucous membranes and oropharynx normal HEAD & SCALP: normocephalic NOSE: Normal nasal mucous membranes and turbinates present EXTERNAL EAR: Yes external ears normal EXTERNAL AUDITORY CANAL: EAC's normal TYMPANIC MEMBRANE: TM's normal bilaterally Neck/C-Spine: COMMON NORMALS: no lymphadenopathy, supple and no JVD Resp: COMMON NORMALS: normal respiratory effort, No retractions, No use of accessory muscles and clear to auscultation bilaterally AUSCULTATION: clear to auscultation bilaterally Cardio: COMMON NORMALS: no JVD, regular rate, regular rhythm and No murmurs present (Cardio) RATE: regular rate RHYTHM: regular rhythm GI: COMMON NORMALS: Soft to palpation and No hepatosplenomegaly present AUSCULTATION: Yes normoactive bowel sounds PALPATION: Yes Soft to palpation, No Tenderness to palpation present (GI), No Guarding due to palpation present (GI) and Yes No hepatosplenomegaly present Extremity: COMMON NORMALS: capillary refill normal, no clubbing, cyanosis or edema, no calf tenderness and no pedal edema Neuro: SENSORIUM/ORIENTATION: Yes oriented to person, Yes oriented to place and Yes oriented to time Skin: COMMON NORMALS: no rashes or lesions noted GENERAL SKIN EXAM: no r ashes or lesions noted Course Vital Signs: Vital signs: Vital Signs Temperature 99.5 F 07/28/22 06:35 Pulse Rate 65 07/28/22 06:35 Respiratory Rate 16 07/28/22 06:35 Blood Pressure 162/60 07/28/22 06:35 Pulse Oximetry 89 L 07/28/22 06:35 Oxygen Delivery Me thod 07/28/22 06:35 MDM - Fall Medical Decision Making Labs imaging EKG reviewed. EKG shows no acute changes. No new injuries on imaging. Labs consistent with chronic underlying medical problems including anemia which is worsened slightly her creatinine is essentially at her baseline. Medical Records I reviewed the patient's medical records. Lab Data I reviewed the patient's lab results. 07/28/22 06:56 07/28/22 06:56 Radiology Impressions Chest X-Ray 07/28/22 06:28 IMPRESSION: No acute cardiopulmonary abnormality. Cervical Spine CT 07/28/22 06:39 IMPRESSION: 1. No acute fracture or traumatic malalignment identified within the cervical spine. 2. Multilevel degenerative changes. 3. Subluxation/dislocation of the temporomandibular joints. Knee X-Ray 07/28/22 06:39 IMPRESSION: 1. No evidence of acute fracture or dislocation. 2. 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 Shoulder X-Ray 07/28/22 06:39 IMPRESSION: No evidence of acute fracture or dislocation. Head CT 07/28/22 06:40 IMPRESSION: 1. Right frontal extracranial superficial soft tissue swelling. No underlying cranial fracture identified. 2. No acute intracranial abnormality. 3. Mild chronic microvascular ischemic disease. Laboratory Results WBC 6.3 10^3/uL (4.0-10.0) 07/28/22 06:56 RBC 2.53 10^6/uL (4.1-5.3) L 07/28/22 06:56 Hgb 9.2 g/dL (11.5-15.3) L 07/28/22 06:56 Hct 29.4 % (37.0-47.0) L 07/28/22 06:56 MCV 116.2 fl (81-99) H 07/28/22 06:56 MCH 36.4 pg (28.0-34.0) H 07/28/22 06:56 MCHC 31.3 g/dL (30.0-36.0) 07/28/22 06:56 RDW 14.6 % (12.1-15.1) 07/28/22 06:56 Plt Count 120 10^3/cmm (130-400) L 07/28/22 06:56 MPV 9.8 fL (7.4-10.4) 07/28/22 06:56 Neut % (Auto) 57.1 % 07/28/22 06:56 Lymph % (Auto) 27.2 % 07/28/22 06:56 Mower % (Auto) 10.3 % 07/28/22 06:56 Eos % (Auto) 4.6 % 07/28/22 06:56 Baso % (Auto) 0.6 % 07/28/22 06:56 Neut # (Auto) 3.59 10^3/uL (1.8-7.7) 07/28/22 06:56 Lymph # (Auto) 1.7 10^3/uL (0.8-4.8) 07/28/22 06:56 Mower # (Auto) 0.7 10^3/uL (0.2-0.9) 07/28/22 06:56 Eos # (Auto) 0.3 10^3/uL (0.0-0.8) 07/28/22 06:56 Baso # (Auto) 0.0 10^3/uL (0.0-0.1) 07/28/22 06:56 Nucleated RBC % (auto) 0 % 07/28/22 06:56 Nucleated RBCs # 0.0 /100WBC 07/28/22 06:56 PT 13.90 SECONDS (12.1-14.9) 07/28/22 06:56 INR 1.04 (0.8-1.2) 07/28/22 06:56 Sodium 139 mmol/L (136-145) 07/28/22 06:56 Potassium 4.5 mmol/L (3.5-5.1) 07/28/22 06:56 Chloride 103 mmol/L (98-107) 07/28/22 06:56 Carbon Dioxide 28 mmol/L (22-29) 07/28/22 06:56 Anion Gap 12.5 (5-19) 07/28/22 06:56 BUN 24 mg/dL (8-23) H 07/28/22 06:56 Creatinine 2.9 mg/dL (0.5-0.9) H 07/28/22 06:56 GFR Calculation Not Reportable 07/28/22 06:56 Glucose 92 mg/dL (65-115) 07/28/22 06:56 Calculated Osmolality 292 mOsm/kg (285-295) 07/28/22 06:56 Calcium 9.0 mg/dL (8.5-10.5) 07/28/22 06:56 Total Bilirubin 0.2 mg/dL (0.15-1.2) 07/28/22 06:56 AST 18 U/L (0-32) 07/28/22 06:56 ALT 13 U/L (0-33) 07/28/22 06:56 Alkaline Phosphatase 108 U/L (35-105) H 07/28/22 06:56 Total Protein 6.2 g/dL (6.6-8.7) L 07/28/22 06:56 Albumin 3.6 g/dL (3.5-5.2) 07/28/22 06:56 Globulin 2.6 g/dL (1.3-4.6) 07/28/22 06:56 Discharge Plan Discharge Patient Disposition: Home Clinical Impression: Fall, ESRD (end stage renal disease), Lives in assisted living facility, Anemia, Atrial fibrillation Condition: Stable Prescriptions: No Action pantoprazole [Protonix] 40 mg tablet,delayed release (DR/EC) 40 mg PO BID Rx Instructions: pt unable to confirm, going by mar from alf. med tech from alf confirmed. acetaminophen [Tylenol] 325 mg tablet 650 mg PO Q4H PRN (Reason: Pain) Rx Instructions: pt unable to confirm, going by mar from alf. med tech from alf confirmed. ipratropium-albuterol 0.5 mg-3 mg(2.5 mg base)/3 mL solution for nebulization 3 ml INHALATION Q4H PRN (Reason: unknown) Rx Instructions: pt unable to confirm, going by mar from alf. med tech from alf confirmed. citalopram [Celexa] 10 mg tablet 10 mg PO DAILY Rx Instructions: pt unable to confirm, going by mar from alf. med tech from alf confirmed. isosorbide mononitrate 30 mg tablet extended release 24 hr 30 mg PO DAILY Rx Instructions: pt unable to confirm, going by mar from alf. med tech from alf confirmed. simethicone [Gas Relief (simethicone)] 80 mg tablet,chewable 80 mg PO DAILY PRN (Reason: abdominal distention) loperamide [Anti-Diarrheal (loperamide)] 2 mg capsule 2 mg PO Q8H PRN (Reason: loose stool) bisacodyl 10 mg suppository 10 mg [place] DAILY PRN (Reason: constipation) Fleet Enema 19-7 gram/118 mL enema 118 ml [place] DAILY PRN (Reason: constipation) bismuth apyc-yjwqfw-PxIw-resor Suppository KY TID PRN (Reason: Bleeding hemorrhoids) cholecalciferol (vitamin D3) [Vitamin D3] 25 mcg (1,000 unit) capsule 25 mcg PO DAILY (DME) elastic bandage 3 bandage See Rx Instructions .Route Rx Instructions: Apply to LLE as needed for swelling and continue to elevate the LE's as needed. cefdinir 300 mg capsule 300 mg PO .QOD lidocaine-prilocaine 2.5-2.5 % cream 1 applic topical .COMPLEX Rx Instructions: 1 applic topical prior to dialysis; sorbitol 70 % solution 60 ml PO DAILY PRN (Reason: constipation) (DME) elastic bandage Bandage See Rx Instructions .Route Rx Instructions: Apply every day to LLE as needed. witch maia-glycerin (hamamel) Pads, Medicated 1 pad topical BID PRN (Reason: hemorrhoids) lidocaine-menthol [Icy Hot Patch (lido-menthol)] 4-1 % adhesive patch,medicated topical Q4H PRN (Reason: Bleeding hemorrhoids) ondansetron HCl 8 mg tablet 8 mg PO TID PRN (Reason: nausea and vomiting) promethazine 12.5 mg suppository 12.5 mg [place] Q8H PRN (Reason: nausea and vomiting) diphenoxylate-atropine [Lomotil] 2.5-0.025 mg tablet 1 tab PO QID 30 Days Qty: 120 0RF Xtampza ER 18 mg cap,sprinkl,ER12hr(DONT CRUSH) 18 mg PO BID 30 Days Qty: 60 0RF alprazolam 0.25 mg tablet 0.25 mg PO BID PRN (Reason: Anxiety) 30 Days Qty: 60 5RF carisoprodol 350 mg tablet 350 mg PO BID PRN (Reason: muscle spasticity) Qty: 60 3RF hydrocodone-acetaminophen 10-325 mg tablet 1 tab PO Q4H 30 Days Qty: 180 0RF hydrocodone-acetaminophen 5-325 mg tablet 1 tab PO Q4H PRN (Reason: pain) 1 Days Qty: 2 0RF Marybel-Eugenio Rx 1-60-300 mg-mg-mcg Tablet 1 tab PO DAILY Rx Instructions: pt unable to confirm, going by mar from alf. med tech from alf confirmed. Eliquis 2.5 mg Tablet 2.5 mg PO BID Hold Instructions: Resume on 04/03/21. Rx Instructions: pt unable to confirm, going by mar from alf. med tech from alf confirmed. calcium acetate(phosphat bind) 667 mg tablet 667 mg PO TID tamsulosin [Flomax] 0.4 mg capsule 0.4 mg PO DAILY Discharge Orders: Discharge ED (Routine); Ordered 07/28/22 Ordered By: Obinna Fletcher Referrals: Soren Waters DO [Primary Care Provider] - Discharge Diet: Usual diet Discharge Activity: Increase activity as tolerated Activity Restrictions/Additional Instructions: You were seen after a fall. CT of the head and neck did not show any acute injury plain films of your shoulder and knee were also unremarkable. Other lab work done was consistent with your known chronic ongoing medical problems. He will be discharged back to [facility] with no change in medications. Coding Level of Care Code ED Machine Operator Transplanter for Alyson Fwd Exam Comprehensive
[2022-07-28 07:06] LABS: Basophils % 0.6 %; Eosinophils # 0.3 10^3/uL (0.0-0.8); Eosinophils % 4.6 %; Hematocrit 29.4 % (37.0-47.0); Hemoglobin 9.2 g/dL (11.5-15.3); Lymphocytes # 1.7 10^3/uL (0.8-4.8); Lymphocytes % 27.2 %; Mean Corpuscular HGB Conc 31.3 g/dL (30.0-36.0); Mean Corpuscular Hemoglobin 36.4 pg (28.0-34.0); Mean Corpuscular Volume 116.2 fl (81-99); Mean Platelet Volume 9.8 fL (7.4-10.4); Monocytes # 0.7 10^3/uL (0.2-0.9); Monocytes % 10.3 %; Neutrophils # 3.59 10^3/uL (1.8-7.7); Neutrophils % 57.1 %; Nucleated Red Blood Cells % 0 %; Platelet Count 120 10^3/cmm (130-400); Red Blood Count 2.53 10^6/uL (4.1-5.3); Red Cell Distribution Width 14.6 % (12.1-15.1); White Blood Count 6.3 10^3/uL (4.0-10.0)
[2022-07-28 07:17] LABS: INR 1.04 (0.8-1.2)
[2022-07-28 07:20] LABS: Alanine Aminotransferase 13 U/L (0-33); Albumin Level 3.6 g/dL (3.5-5.2); Alkaline Phosphatase 108 U/L (35-105); Anion Gap 12.5 (5-19); Aspartate Amino Transferase 18 U/L (0-32); Blood Urea Nitrogen 24 mg/dL (8-23); Carbon Dioxide 28 mmol/L (22-29); Chloride 103 mmol/L (98-107); Globulin 2.6 g/dL (1.3-4.6); Glucose 92 mg/dL (65-115); Osmolality Calculated 292 mOsm/kg (285-295); Potassium 4.5 mmol/L (3.5-5.1); Sodium 139 mmol/L (136-145); Total Bilirubin 0.2 mg/dL (0.15-1.2); Total Protein 6.2 g/dL (6.6-8.7)
[2022-07-28 07:53] VITALS: BP 167/66; PULSE 67; RESP 19; O2SAT 93
--- NOTE | 2022-07-28 07:53 | PC.NURSE ---
PT PLACED CONTINUOUS NIBP, SPO2, AND CM
--- NOTE | 2022-07-28 07:56 | PC.NURSE ---
PT AWAKE RESTING IN BED. FAMILY PRESENT.
[2022-07-28 08:16] VITALS: BP 143/58; PULSE 64; RESP 14; O2SAT 95
== END 2022-07-28 08:18 | disposition home or self-care (01) ==
PROVIDERS: Emergency Provider Family Medicine; PCP Family Medicine
DX: I13.2 Hypertensive heart and chronic kidney disease with heart failure and with stage 5 chronic kidney disease, or end stage renal disease (principal); N18.6 End stage renal disease; I50.30 Unspecified diastolic (congestive) heart failure; E78.5 Hyperlipidemia, unspecified; Z79.01 Long term (current) use of anticoagulants; D64.9 Anemia, unspecified; I48.91 Unspecified atrial fibrillation
CPT/HCPCS: 70450; 71045; 72125; 73030; 73562; 80053; 85025; 85610; 93005; 99285

== ENCOUNTER 2022-08-01 21:55 | Emergency (ER) | payer MEDICARE, OTHER, SELFPAY ==
--- NOTE | 2022-08-01 21:56 | CTR_ITS ---
PROCEDURE INFORMATION: Exam: CT Head Without Contrast Exam date and time: 08/01/2022 10:20 PM Age: 87 years old Clinical indication: Injury or trauma; Fall; Blunt trauma (contusions or hematomas); Patient HX: Patient fell face first onto floor while standing up from toilet at home. Hematoma to RT forehead with lac near vertex of skull. TECHNIQUE: Imaging protocol: Computed tomography of the head without contrast. Radiation optimization: All CT scans at this facility use at least one of these dose optimization techniques: automated exposure control; mA and/or kV adjustment per patient size (includes targeted exams where dose is matched to clinical indication); or iterative reconstruction. COMPARISON: CT head wo con* [id number] 07/28/2022 7:03 AM RADIATION DOSE METRICS: Total DLP (mGy-cm): 932.18 FINDINGS: Brain: No acute hemorrhage identified. No large territorial areas of hypoattenuation concerning for ischemic infarct identified. No intracranial mass effect. Subcortical and periventricular white matter hypoattenuation likely consistent with mild chronic microvascular ischemic disease. Cerebral ventricles: The ventricles are within normal limits. Paranasal sinuses: The visualized sinuses are unremarkable. Mastoid air cells: The visualized mastoid air cells are well aerated. Bones/joints: The osseous structures are intact. Soft tissues: Extracranial superficial soft tissue swelling overlying the right frontal convexity. New anterior vertex soft tissue swelling. CT/CT head wo con* [id number] IMPRESSION: 1. No focal hemorrhage or midline shift. 2. Scalp swelling seen. New vertex scalp injury from 4 days ago. 3. Age-related changes.
--- NOTE | 2022-08-01 21:56 | CTR_ITS ---
PROCEDURE INFORMATION: Exam: CT Cervical Spine Without Contrast Exam date and time: 08/01/2022 10:23 PM Age: 87 years old Clinical indication: Injury or trauma; Fall; Blunt trauma; Patient HX: Patient fell face first onto floor while standing up from toilet at home. Hematoma to RT forehead with lac near vertex of skull. TECHNIQUE: Imaging protocol: Computed tomography of the cervical spine without contrast. Radiation optimization: All CT scans at this facility use at least one of these dose optimization techniques: automated exposure control; mA and/or kV adjustment per patient size (includes targeted exams where dose is matched to clinical indication); or iterative reconstruction. COMPARISON: CT cervical spin wo con* [id number] 07/28/2022 7:03 AM RADIATION DOSE METRICS: Total DLP (mGy-cm): 142.28 FINDINGS: Bones/joints: A couple of levels of minimal listhesis are probably due to advanced facet arthropathy. No jumped, locked or perched facets are visualized. No acute fracture visualized. Severe diffuse cervical degenerative change with facet arthropathy. Lungs: Lung apices are normal. Soft tissues: Mild lower cervical lordotic reversal which may be due to muscle spasm or positioning. CT/CT cervical spin wo con* [id number] IMPRESSION: 1. No acute finding visualized. 2. A few chronic findings above. The findings are similar to 4 days ago.
[2022-08-01 21:59] VITALS: BP 174/71; PULSE 66; RESP 20; TEMP 36.3; O2SAT 93; BMI 20.7
--- NOTE | 2022-08-01 22:20 | W.ED.FALL ---
HPI - Fall General: Chief Complaint: Fall Stated Complaint: fall Time Seen by Provider: 08/01/22 21:56 Source: patient and EMS Mode of arrival: EMS Limitations: no limitations History of Present Illness: 87-year-old female who states she was going to the bathroom had bent over to pull her pants up and fell over and hit her head on the floor. She does have an abrasion to the crown of her head she complains of a slight headache and neck pain denies any other injuries from her fall. She rates her pain a 3 out of 10 currently denies any worsening proving factors. Associated symptoms-after fall: Denies abdominal pain, chest pain, headache(s) or neck pain Review of Systems Const: Denies: fever(s), chills, body aches or change in appetite Eyes: Denies: blurry vision or eye discomfort ENMT: Denies: throat pain or dental pain Card: Denies: chest pain Resp: Denies: dyspnea GI: Denies: abdominal pain, nausea, vomiting or diarrhea : Denies: dysuria Musc: Denies: neck pain or back pain Skin/Breast: Denies: rash Neuro: Denies: headache(s) Psych: Denies: depression Tino/Lymph: Denies: easy bruising All/Imm: Denies: urticaria PFSH ED PFSH: Medical History Anemia of chronic disease Anxiety and depression DDD (degenerative disc disease) Decubitus ulcer, buttock, right, unstageable Diastolic CHF ESRD (end stage renal disease) Fibromyalgia GERD (gastroesophageal reflux disease) History of breast cancer Previously followed by Dr. Santoyo History of pulmonary embolus (PE) 08/2016 History of stroke 11/14/16 Hyperlipidemia Hypertension Incomplete bladder emptying Internal and external bleeding hemorrhoids Lumbar spinal stenosis Osteoarthritis Paroxysmal A-fib Peritoneal dialysis catheter in place Recurrent UTI Restrictive lung disease Urinary retention Surgical History History of back surgery History of esophagogastroduodenoscopy (EGD) 08/03/17 mild gastritis and duodenitis History of hemiarthroplasty of left hip 11/18/18: Dr. Mendoza History of hysterectomy History of lumpectomy of left breast History of right cataract surgery Family History Other Cancer Denies family history of Anesthesia complication Bleeding disorder Social History Second hand smoke exposure: No Alcohol intake: never Adopted: No Caregiver/support person: Yes Lives independently: Yes Housing: Assisted Living Facility Marital status: Marital status details: with dementia Additional social history: FULL CODE DISCUSSED WITH PATIENT ON 02/04/20 Physical Exam Const: COMMON NORMALS: no acute distress, patient oriented x3 and healthy appearing HENMT: COMMON NORMALS: normocephalic; head/scalp not atraumatic (abrasion to crown of head) HEAD & SCALP: normocephalic; not atraumatic (abrasion to crown of head) Eye: COMMON NORMALS: Equal, round and reactive pupils present and EOMs intact bilaterally PUPIL: Yes Equal, round and reactive pupils present Neck/C-Spine: COMMON NORMALS: full ROM and supple Chest: COMMONS NORMALS: normal inspection of the chest and normal palpation of entire chest wall Resp: COMMON NORMALS: normal respiratory effort, No retractions, No use of accessory muscles and clear to auscultation bilaterally AUSCULTATION: clear to auscultation bilaterally Cardio: COMMON NORMALS: regular rate, regular rhythm and No murmurs present (Cardio) RATE: regular rate RHYTHM: regular rhythm GI: COMMON NORMALS: Normal to inspection, nondistended, normoactive bowel sounds present, Soft to palpation, non-tender and no masses PALPATION: Yes Soft to palpation Extremity: COMMON NORMALS: normal to inspection and full ROM Neuro: COMMON NORMALS: patient oriented x3, moves all extremities and no focal motor deficits Psych: COMMON NORMALS: mental status grossly normal, Normal thought process present and cooperative THOUGHT PROCESS: Normal thought process present Skin: COMMON NORMALS: no rashes or lesions noted and no wounds GENERAL SKIN EXAM: no rashes or lesions noted Course Vital Signs: Vital signs: Vital Signs Temperature 97.3 F L 08/01/22 21:59 Pulse Rate 66 08/01/22 21:59 Respiratory Rate 20 H 08/01/22 21:59 Blood Pressure 174/71 08/01/22 21:59 Pulse Oximetry 93 08/01/22 21:59 Oxygen Delivery Me thod 08/01/22 21:59 MDM - Fall Medical Decision Making Patient presents here with a head injury from a fall she does have a small abrasion nothing to suture head CT C-spine CTs are negative she is well-appearing here she stable for discharge. Lab Data Radiology Impressions Cervical Spine CT 08/01/22 21:56 IMPRESSION: 1. No acute finding visualized. 2. A few chronic findings above. The findings are similar to [address] 08/01/22 21:56 IMPRESSION: 1. No focal hemorrhage or midline shift. 2. Scalp swelling seen. New vertex scalp injury from 4 days ago. 3. Age-related changes. Discharge Plan Discharge Patient Disposition: Home Clinical Impression: Head injury, Fall Condition: Stable Prescriptions: No Action pantoprazole [Protonix] 40 mg tablet,delayed release (DR/EC) 40 mg PO BID Rx Instructions: pt unable to confirm, [facility] confirmed. acetaminophen [Tylenol] 325 mg tablet 650 mg PO Q4H PRN (Reason: Pain) Rx Instructions: pt unable to confirm, [facility] confirmed. ipratropium-albuterol 0.5 mg-3 mg(2.5 mg base)/3 mL solution for nebulization 3 ml INHALATION Q4H PRN (Reason: unknown) Rx Instructions: pt unable to confirm, going [facility] confirmed. citalopram [Celexa] 10 mg tablet 10 mg PO DAILY Rx Instructions: pt unable to confirm, going [facility]. [facility] confirmed. isosorbide mononitrate 30 mg tablet extended release 24 hr 30 mg PO DAILY Rx Instructions: pt unable to confirm, going by [facility] from [facility]. med tech from [facility] confirmed. simethicone [Gas Relief (simethicone)] 80 mg tablet,chewable 80 mg PO DAILY PRN (Reason: abdominal distention) loperamide [Anti-Diarrheal (loperamide)] 2 mg capsule 2 mg PO Q8H PRN (Reason: loose stool) bisacodyl 10 mg suppository 10 mg MA DAILY PRN (Reason: constipation) Fleet Enema 19-7 gram/118 mL enema 118 ml MA DAILY PRN (Reason: constipation) bismuth smjn-ejupiy-XgYb-resor Suppository MA TID PRN (Reason: Bleeding hemorrhoids) cholecalciferol (vitamin D3) [Vitamin D3] 25 mcg (1,000 unit) capsule 25 mcg PO DAILY (DME) elastic bandage 3 bandage See Rx Instructions .Route Rx Instructions: Apply to LLE as needed for swelling and continue to elevate the LE's as needed. cefdinir 300 mg capsule 300 mg PO .QOD lidocaine-prilocaine 2.5-2.5 % cream 1 applic topical .COMPLEX Rx Instructions: 1 applic topical prior to dialysis; sorbitol 70 % solution 60 ml PO DAILY PRN (Reason: constipation) (DME) elastic bandage Bandage See Rx Instructions .Route Rx Instructions: Apply every day to LLE as needed. witch maia-glycerin (hamamel) Pads, Medicated 1 pad topical BID PRN (Reason: hemorrhoids) lidocaine-menthol [Icy Hot Patch (lido-menthol)] 4-1 % adhesive patch,medicated topical Q4H PRN (Reason: Bleeding hemorrhoids) ondansetron HCl 8 mg tablet 8 mg PO TID PRN (Reason: nausea and vomiting) promethazine 12.5 mg suppository 12.5 mg MA Q8H PRN (Reason: nausea and vomiting) diphenoxylate-atropine [Lomotil] 2.5-0.025 mg tablet 1 tab PO QID 30 Days Qty: 120 0RF Xtampza ER 18 mg cap,sprinkl,ER12hr(DONT CRUSH) 18 mg PO BID 30 Days Qty: 60 0RF alprazolam 0.25 mg tablet 0.25 mg PO BID PRN (Reason: Anxiety) 30 Days Qty: 60 5RF carisoprodol 350 mg tablet 350 mg PO BID PRN (Reason: muscle spasticity) Qty: 60 3RF hydrocodone-acetaminophen 10-325 mg tablet 1 tab PO Q4H 30 Days Qty: 180 0RF hydrocodone-acetaminophen 5-325 mg tablet 1 tab PO Q4H PRN (Reason: pain) 1 Days Qty: 2 0RF Marybel-Eugenio Rx 1-60-300 mg-mg-mcg Tablet 1 tab PO DAILY Rx Instructions: pt unable to confirm, [facility] confirmed. Eliquis 2.5 mg Tablet 2.5 mg PO BID Hold Instructions: Resume on 04/03/21. Rx Instructions: pt unable to confirm, going [facility] confirmed. calcium acetate(phosphat bind) 667 mg tablet 667 mg PO TID tamsulosin [Flomax] 0.4 mg capsule 0.4 mg PO DAILY Discharge Orders: Discharge ED (Routine); Ordered 08/01/22 Ordered By: Marty Kramer Referrals: Soren Waters DO [Primary Care Provider] - 1-3 days Discharge Diet: Advance as tolerated Discharge Activity: Resume usual activity Patient Instructions: Head Injury (ED), Fall Prevention (ED) Coding Level of Care Code ED Doctor Of Naprapathic Medicine for Alyson Fwfrancisco Exam Comprehensive
[2022-08-01 22:33] VITALS: BP 96/75; PULSE 66; RESP 18; O2SAT 99
[2022-08-01 23:34] VITALS: BP 140/55; PULSE 71; RESP 18; O2SAT 96
== END 2022-08-01 23:35 | disposition home or self-care (01) ==
PROVIDERS: Emergency Provider Emergency Medicine; PCP Family Medicine
DX: S00.81XA Abrasion of other part of head, initial encounter (principal); W18.39XA Other fall on same level, initial encounter; M54.2 Cervicalgia
CPT/HCPCS: 70450; 72125; 99284

== ENCOUNTER 2022-08-06 17:28 | Outpatient (CLI) | payer MEDICARE, OTHER, SELFPAY ==
[2022-08-06 18:15] LABS: Creatinine Urine, Random 58 mg/dL (28-217)
[2022-08-06 18:29] LABS: Microalbum Creatinine Ratio Ur 1897 mg/dL (0-20); Microalbumin Random Urine 110 ug/dL (0-20)
== END 2022-08-06 17:29 | disposition home or self-care (01) ==
PROVIDERS: PCP Family Medicine; Visit Provider Family Medicine
DX: N39.0 Urinary tract infection, site not specified (principal)
CPT/HCPCS: 82044; 87077; 87086; 87186

== ENCOUNTER 2022-08-18 14:21 | Outpatient (CLI) | payer MEDICARE, OTHER, SELFPAY ==
--- NOTE | 2022-08-18 14:15 | USCV_ITS ---
Martha Milla Age: 87 Gender: F : 1935 Exam Date: 08/18/2022 14:47 Ordering Phys: Soren Waters DO Technologist: Vinay Navarro Exam Location: [facility] [place] Indication: HEART FAILURE, MURMUR BP: 174 / 71 HR: 59 Rhythm: Sinus Technical Quality: MEASUREMENTS (Male / Female) Normal Values 2D ECHO LV Diastolic Diameter PLAX 4.3 cm 4.2 - 5.9 / 3.9 - 5.3 cm LV Systolic Diameter PLAX 2.9 cm IVS Diastolic Thickness 0.9 cm 0.6 - 1.0 / 0.6 - 0.9 cm IVS Systolic Thickness 1.2 cm LVPW Diastolic Thickness 1.6 cm 0.6 - 1.0 / 0.6 - 0.9 cm LVPW Systolic Thickness 1.6 cm LVOT Diameter 2.0 cm LV Ejection Fraction 2D Teich 61.4 % LV Ejection Fraction MOD 2C 59.0 % LV Ejection Fraction 2C AL 59.3 % LA Diameter 3.6 cm LA Width 3.5 cm LA Height 5.3 cm RA Width 3.5 cm RA Height 4.4 cm Aorta at Sinotubular Diameter 2.1 cm IVC Diameter 1.8 cm M-MODE Aortic Annulus Diameter 2.3 cm LA Ao Ratio MM 1.4 MV E Point Septal Separation 0.8 cm DOPPLER AV Peak Velocity 171.0 cm/s LVOT Peak Velocity 97.0 cm/s AV Area Cont Eq vti 1.6 cm squared AV Area Cont Eq pk 1.8 cm squared MV Peak Velocity 121.0 cm/s MV Area PHT 5.6 cm squared Mitral E to A Ratio 1.3 MV E' Velocity 50.0 cm/s Mitral E to MV E' Ratio 7.7 Mitral E to LV E' Lateral Ratio 7.2 Mitral E to LV E' Septal Ratio 8.5 TR Peak Velocity 386.6 cm/s TR Peak Gradient 59.8 mmHg TR Mean Velocity 272.8 cm/s TR Mean Gradient 33.2 mmHg TR Velocity Time Integral 120.3 cm Right Atrial Pressure 3.0 mmHg Pulmonary Artery Systolic Pressu 62.8 mmHg PV Peak Velocity 99.3 cm/s RV Acceleration Time 0.2 s RV Ejection Time 0.3 s RV AcT/ET 0.5 FINDINGS Left Ventricle Left ventricle is normal in size. LV systolic function is normal with EF of 55 to 60%. No regional wall motion abnormalities are seen. Right Ventricle Normal in size Right Atrium Normal in size Left Atrium Normal in size Mitral Valve Structurally normal mitral valve. Trace mitral regurgitation. Aortic Valve Structurally normal aortic valve. No significant stenosis or regurgitation. Tricuspid Valve Mild tricuspid regurgitation. RVSP is >60mmHg. This is consistent with severe pulmonary hypertension Pulmonic Valve Not well visualized. Trace pulmonic regurgitation. Pericardium Normal Aorta Normal in size IVC Appears to be normal CONCLUSIONS LV systolic function is nromal with EF of 55-60% Trace mitral regurgitation. Mild tricuspid regurgitation Severe pulmonary hypertension Trace pulmonic regurgitation Compared to prior echocardiogram from 2019, patient now has severe pulmonary hypertension Cristhian Harden MD (Electronically Signed) Final Date: 01 September 2022 18:04 S
== END 2022-08-18 14:22 | disposition home or self-care (01) ==
PROVIDERS: PCP Family Medicine; Visit Provider Family Medicine
DX: I48.91 Unspecified atrial fibrillation (principal); I50.30 Unspecified diastolic (congestive) heart failure; M79.89 Other specified soft tissue disorders
CPT/HCPCS: 93306

== ENCOUNTER 2022-09-02 08:27 | Outpatient (CLI) | payer MEDICARE, OTHER, SELFPAY ==
[2022-09-02 09:16] LABS: Add Urine Microscopic? YES; Bilirubin Urine Neg (Negative); Blood Urine 2+ (Negative); Glucose Urine UA Norm (Normal); Ketones Urine Negative (Negative); Leukocyte Esterase Urine 2+ (Negative); Nitrate Urine Negative (Negative); Protein Urine 1+ (Negative); Specific Gravity, Urine 1.005 (1.005-1.030); Urine Appearance Clear (CLEAR); Urine Color Yellow (Yellow); Urobilinogen Urine Norm (Negative); pH Urine 6 (5-7)
[2022-09-02 09:17] LABS: Add Urine Culture? No; Amorphous Sediment Urine 1+ /hpf; Bacteria Urine 1+ /hpf; RBC Urine 0-4 /hpf (0-2)
== END 2022-09-02 08:28 | disposition home or self-care (01) ==
PROVIDERS: PCP Family Medicine; Visit Provider Family Medicine
DX: N39.0 Urinary tract infection, site not specified (principal)
CPT/HCPCS: 81001; 87086

== ENCOUNTER 2022-10-21 13:03 | Emergency (ER) | payer MEDICARE, OTHER, SELFPAY ==
[2022-10-21 13:06] VITALS: BP 122/54; PULSE 67; RESP 14; TEMP 36.6; O2SAT 95; BMI 20.4
--- NOTE | 2022-10-21 13:42 | W.ED.RECABL ---
HPI - Recheck/Abnormal Lab/Rx General: Chief Complaint: Recheck/Abnormal Lab/Rx Stated Complaint: hypotension Time Seen by Provider: 10/21/22 13:16 History of Present Illness: Patient presents to the ER by EMS with complaints of low blood pressure at dialysis. Patient's blood pressure was in the 80s over 40s at dialysis. Patient had no symptoms at that time and has no symptoms currently. Current blood pressure is 122/54. Patient has been on Bactrim approximately 1 week for urinary tract infection. MD complaint: other (Recheck hypotension) Initial visit (ago): hour(s) (At dialysis earlier today) Initial visit for: other Symptoms since prior visit: no new symptoms Associated symptoms: none Review of Systems General: Reports: 10 or more systems reviewed and unremarkable except in HPI and below Const: Denies: fever(s) or chills Eyes: Denies: change in vision ENMT: Denies: throat pain or odynophagia Card: Denies: chest pain, palpitations or irregular heart rhythm Resp: Denies: dyspnea, productive cough or non-productive cough GI: Denies: abdominal pain, nausea, vomiting or diarrhea : Denies: flank pain Musc: Denies: neck pain or back pain Skin/Breast: Denies: rash or pruritus Neuro: Denies: headache(s), numbness in extremities or weakness in extremities Psych: Denies: anxiety or depression Endo: Denies: polyuria, polydipsia or tired all the time Tino/Lymph: Denies: easy bruising or easy bleeding All/Imm: Denies: urticaria or throat swelling PFS ED PFSH: Medical History Anemia of chronic disease Anxiety and depression DDD (degenerative disc disease) Decubitus ulcer, buttock, right, unstageable Diastolic CHF ESRD (end stage renal disease) Fibromyalgia GERD (gastroesophageal reflux disease) History of breast cancer Previously followed by Dr. Santoyo History of pulmonary embolus (PE) 08/2016 History of stroke 11/14/16 Hyperlipidemia Hypertension Incomplete bladder emptying Internal and external bleeding hemorrhoids Lumbar spinal stenosis Osteoarthritis Paroxysmal A-fib Peritoneal dialysis catheter in place Recurrent UTI Restrictive lung disease Urinary retention Surgical History History of back surgery History of esophagogastroduodenoscopy (EGD) 1/25/18 mild gastritis and duodenitis History of hemiarthroplasty of left hip 11/18/18: Dr. Mendoza History of hysterectomy History of lumpectomy of left breast History of right cataract surgery Family History Other Cancer Denies family history of Anesthesia complication Bleeding disorder Social History Second hand smoke exposure: No Alcohol intake: never Adopted: No Caregiver/support person: Yes Lives independently: Yes Housing: Assisted Living Facility Marital status: Marital status details: with dementia Additional social history: FULL CODE DISCUSSED WITH PATIENT ON 02/04/20 Physical Exam Const: COMMON NORMALS: no acute distress, average body habitus, patient oriented x3, no limitations, alert and well nourished HENMT: COMMON NORMALS: normocephalic, atraumatic, hearing grossly normal bilaterally, external ears normal, Normal external nose present and moist oral mucous membranes HEAD & SCALP: normocephalic and atraumatic NOSE: Normal external nose present EXTERNAL EAR: Yes external ears normal Eye: COMMON NORMALS: Equal, round and reactive pupils present, EOMs intact bilaterally, conjunctivae normal and no scleral icterus CONJUNCTIVA: Yes conjunctivae normal PUPIL: Yes Equal, round and reactive pupils present Neck/C-Spine: COMMON NORMALS: full ROM, no lymphadenopathy, supple, no meningeal signs, no JVD and Thyroid normal THYROID: Thyroid normal Lymph: LYMPHATIC: no lymphadenopathy noted Chest: COMMONS NORMALS: normal inspection of the chest and normal palpation of entire chest wall Resp: COMMON NORMALS: normal respiratory effort, No retractions, No use of accessory muscles and clear to auscultation bilaterally AUSCULTATION: clear to auscultation bilaterally Cardio: COMMON NORMALS: no JVD, regular rate, regular rhythm, S1 normal heart sound present and S2 normal heart sound present RATE: regular rate RHYTHM: regular rhythm HEART SOUNDS: S1 normal heart sound present and S2 normal heart sound present GI: COMMON NORMALS: Normal to inspection, nondistended, normoactive bowel sounds present, Soft to palpation, non-tender, No hepatosplenomegaly present and no masses PALPATION: Yes Soft to palpation and Yes No hepatosplenomegaly present : COMMON NORMALS: Yes no CVA tenderness BLADDER/KIDNEY EXAM: Yes no CVA tenderness Back/Pelvis: COMMON NORMALS: no CVA tenderness Neuro: COMMON NORMALS: patient oriented x3 SENSORIUM/ORIENTATION: Yes alert MENINGEAL SIGNS: Yes no meningeal signs Course Vital Signs: Vital signs: Vital Signs Temperature 97.9 F 10/21/22 13:06 Pulse Rate 72 10/21/22 14:51 Respiratory Rate 14 10/21/22 13:06 Blood Pressure 122/69 10/21/22 14:51 Pulse Oximetry 99 10/21/22 14:51 Oxygen Delivery Me thod Nasal Cannula 10/21/22 14:51 MDM - Recheck/Abnormal Lab/Rx Medical Decision Making Patient presents to the ER from dialysis with complaints of low blood pressure. Patient is asymptomatic with no complaints at the moment and when asked if she had any complaints at dialysis like lightheaded dizzy fatigue passing out she said no. She was sent over here for blood pressure approximately 80/50. Upon arrival over here her blood pressure was 122/54. Patient's family asked if was going to draw blood and recheck her urine, she is on an antibiotic for urinary tract infection. We prieto blood and recheck her urine and all of them are improved were benign for her situation. Patient was resting comfortably in bed. Patient will be discharged home to follow-up with her PCP. Differential Diagnosis Unlikely encounter for medication refill, encounter for wound recheck, encounter for recheck of burn, encounter for removal of sutures or warfarin-induced coagulopathy Medical Records I reviewed the patient's medical records. Lab Data I reviewed the patient's lab results. 10/21/22 14:35 10/21/22 14:35 Laboratory Results WBC 4.6 10^3/uL (4.0-10.0) 10/21/22 14:35 RBC 2.85 10^6/uL (4.1-5.3) L 10/21/22 14:35 Hgb 10.5 g/dL (11.5-15.3) L 10/21/22 14:35 Hct 33.4 % (37.0-47.0) L 10/21/22 14:35 MCV 117.2 fl (81-99) H 10/21/22 14:35 MCH 36.8 pg (28.0-34.0) H 10/21/22 14:35 MCHC 31.4 g/dL (30.0-36.0) 10/21/22 14:35 RDW 14.6 % (12.1-15.1) 10/21/22 14:35 Plt Count 54 10^3/cmm (130-400) L 10/21/22 14:35 MPV 10.5 fL (7.4-10.4) H 10/21/22 14:35 Neut % (Auto) 64.9 % 10/21/22 14:35 Lymph % (Auto) 24.0 % 10/21/22 14:35 [place] % (Auto) 8.7 % 10/21/22 14:35 Eos % (Auto) 1.5 % 10/21/22 14:35 Baso % (Auto) 0.7 % 10/21/22 14:35 Neut # (Auto) 2.98 10^3/uL (1.8-7.7) 10/21/22 14:35 Lymph # (Auto) 1.1 10^3/uL (0.8-4.8) 10/21/22 14:35 [place] # (Auto) 0.4 10^3/uL (0.2-0.9) 10/21/22 14:35 Eos # (Auto) 0.1 10^3/uL (0.0-0.8) 10/21/22 14:35 Baso # (Auto) 0.0 10^3/uL (0.0-0.1) 10/21/22 14:35 Nucleated RBC % (auto) 0 % 10/21/22 14:35 Nucleated RBCs # 0.0 /100WBC 10/21/22 14:35 Sodium 138 mmol/L (136-145) 10/21/22 14:35 Potassium 3.5 mmol/L (3.5-5.1) 10/21/22 14:35 Chloride 103 mmol/L (98-107) 10/21/22 14:35 Carbon Dioxide 24 mmol/L (22-29) 10/21/22 14:35 Anion Gap 14.5 (5-19) 10/21/22 14:35 BUN 27 mg/dL (8-23) H 10/21/22 14:35 Creatinine 4.0 mg/dL (0.5-0.9) H 10/21/22 14:35 GFR Calculation Not Reportable 10/21/22 14:35 Glucose 89 mg/dL (65-115) 10/21/22 14:35 Calculated Osmolality 291 mOsm/kg (285-295) 10/21/22 14:35 Calcium 8.5 mg/dL (8.5-10.5) 10/21/22 14:35 Phosphorus 2.6 mg/dL (2.5-4.5) 10/21/22 14:35 Magnesium 1.9 mg/dL (1.7-2.3) 10/21/22 14:35 Total Bilirubin 0.3 mg/dL (0.15-1.2) 10/21/22 14:35 AST 17 U/L (0-32) 10/21/22 14:35 ALT 13 U/L (0-33) 10/21/22 14:35 Alkaline Phosphatase 64 U/L (35-105) 10/21/22 14:35 Total Protein 5.5 g/dL (6.6-8.7) L 10/21/22 14:35 Albumin 3.1 g/dL (3.5-5.2) L 10/21/22 14:35 Globulin 2.4 g/dL (1.3-4.6) 10/21/22 14:35 Urine Color Dark yellow (Yellow) 10/21/22 14:20 Urine Appearance Clear (CLEAR) 10/21/22 14:20 Urine pH 5 (5-7) 10/21/22 14:20 Ur Specific [place] 1.020 (1.005-1.030) 10/21/22 14:20 Urine Protein 1+ (Negative) H 10/21/22 14:20 Urine Glucose (UA) Norm (Normal) 10/21/22 14:20 Urine Ketones Negative (Negative) 10/21/22 14:20 Urine Blood Neg (Negative) 10/21/22 14:20 Urine Nitrate Negative (Negative) 10/21/22 14:20 Urine Bilirubin 1+ (Negative) H 10/21/22 14:20 Urine Urobilinogen Neg mg/dL (Negative) 10/21/22 14:20 Ur Leukocyte Esterase Negative (Negative) 10/21/22 14:20 Urine RBC 0-4 /hpf (0-2) H 10/21/22 14:20 Urine WBC 0-4 /hpf (0-5) H 10/21/22 14:20 Ur Squamous Epith Cells 0-4 /hpf (0-5) H 10/21/22 14:20 Amorphous Sediment 1+ /hpf 10/21/22 14:20 Urine Bacteria Trace /hpf (NONE) 10/21/22 14:20 Urine Mucus Trace /hpf 10/21/22 14:20 Discharge Plan Discharge Patient Disposition: Home Clinical Impression: Acute hypotension, ESRD (end stage renal disease) Condition: Stable Prescriptions: No Action pantoprazole [Protonix] 40 mg tablet,delayed release (DR/EC) 40 mg PO BID Rx Instructions: pt unable to confirm, going by mar from retirement. med tech from retirement confirmed. acetaminophen [Tylenol] 325 mg tablet 650 mg PO Q4H PRN (Reason: Pain) Rx Instructions: pt unable to confirm, going by mar from retirement. med tech from retirement confirmed. ipratropium-albuterol 0.5 mg-3 mg(2.5 mg base)/3 mL solution for nebulization 3 ml INHALATION Q4H PRN (Reason: unknown) Rx Instructions: pt unable to confirm, going by mar from retirement. med tech from retirement confirmed. citalopram [Celexa] 10 mg tablet 10 mg PO DAILY Rx Instructions: pt unable to confirm, going by mar from retirement. med tech from retirement confirmed. isosorbide mononitrate 30 mg tablet extended release 24 hr 30 mg PO DAILY Rx Instructions: pt unable to confirm, going by mar from retirement. med tech from retirement confirmed. simethicone [Gas Relief (simethicone)] 80 mg tablet,chewable 80 mg PO DAILY PRN (Reason: abdominal distention) loperamide [Anti-Diarrheal (loperamide)] 2 mg capsule 2 mg PO Q8H PRN (Reason: loose stool) bisacodyl 10 mg suppository 10 mg CO DAILY PRN (Reason: constipation) Fleet Enema 19-7 gram/118 mL enema 118 ml CO DAILY PRN (Reason: constipation) bismuth [id number]-[id number]-FtCl-resor Suppository CO TID PRN (Reason: Bleeding hemorrhoids) cholecalciferol (vitamin D3) [Vitamin D3] 25 mcg (1,000 unit) capsule 25 mcg PO DAILY (DME) elastic bandage 3 bandage See Rx Instructions .Route Rx Instructions: Apply to LLE as needed for swelling and continue to elevate the LE's as needed. cefdinir 300 mg capsule 300 mg PO .QOD lidocaine-prilocaine 2.5-2.5 % cream 1 applic topical .COMPLEX Rx Instructions: 1 applic topical prior to dialysis; sorbitol 70 % solution 60 ml PO DAILY PRN (Reason: constipation) (DME) elastic bandage Bandage See Rx Instructions .Route Rx Instructions: Apply every day to LLE as needed. witch maia-glycerin (hamamel) Pads, Medicated 1 pad topical BID PRN (Reason: hemorrhoids) lidocaine-menthol [Icy Hot Patch (lido-menthol)] 4-1 % adhesive patch,medicated topical Q4H PRN (Reason: Bleeding hemorrhoids) ondansetron HCl 8 mg tablet 8 mg PO TID PRN (Reason: nausea and vomiting) promethazine 12.5 mg suppository 12.5 mg CO Q8H PRN (Reason: nausea and vomiting) alprazolam 0.25 mg tablet 0.25 mg PO BID PRN (Reason: Anxiety) 30 Days Qty: 60 5RF carisoprodol 350 mg tablet 350 mg PO BID PRN (Reason: muscle spasticity) Qty: 60 3RF diphenoxylate-atropine [Lomotil] 2.5-0.025 mg tablet 1 tab PO QID 30 Days Qty: 120 0RF Xtampza ER 18 mg cap,sprinkl,ER12hr(DONT CRUSH) 18 mg PO BID 30 Days Qty: 60 0RF linezolid 600 mg tablet 600 mg PO Q12H 14 Days Qty: 28 0RF Rx Instructions: Please give at 6am and 6pm. hydrocodone-acetaminophen 10-325 mg tablet 1 tab PO Q4H 30 Days Qty: 180 0RF Marybel-Eugenio Rx 1-60-300 mg-mg-mcg Tablet 1 tab PO DAILY Rx Instructions: pt unable to confirm, going by mar from retirement. med tech from retirement confirmed. Eliquis 2.5 mg Tablet 2.5 mg PO BID Hold Instructions: Resume on 04/03/21. Rx Instructions: pt unable to confirm, going by mar from retirement. med tech from retirement confirmed. calcium acetate(phosphat bind) 667 mg tablet 667 mg PO TID tamsulosin [Flomax] 0.4 mg capsule 0.4 mg PO DAILY Discharge Orders: Discharge ED (Routine); Ordered 10/21/22 Ordered By: Javi Walls Referrals: Soren Waters DO [Primary Care Provider] - Patient Instructions: Hypotension (DC) Coding Level of Care Code ED [employer]ozer [employer]ic for [facility]
[2022-10-21 14:32] LABS: Glucose Urine UA Norm (Normal); Ketones Urine Negative (Negative); Protein Urine 1+ (Negative); Urine Appearance Clear (CLEAR); Urine Color Dark Yellow (Yellow); pH Urine 5 (5-7)
[2022-10-21 14:33] LABS: Add Urine Microscopic? YES; Bilirubin Urine 1+ (Negative); Blood Urine Neg (Negative); Leukocyte Esterase Urine Negative (Negative); Nitrate Urine Negative (Negative); Urobilinogen Urine Neg (Negative)
[2022-10-21 14:40] LABS: Basophils % 0.7 %; Eosinophils # 0.1 10^3/uL (0.0-0.8); Eosinophils % 1.5 %; Hematocrit 33.4 % (37.0-47.0); Hemoglobin 10.5 g/dL (11.5-15.3); Lymphocytes # 1.1 10^3/uL (0.8-4.8); Mean Corpuscular HGB Conc 31.4 g/dL (30.0-36.0); Mean Corpuscular Hemoglobin 36.8 pg (28.0-34.0); Mean Corpuscular Volume 117.2 fl (81-99); Mean Platelet Volume 10.5 fL (7.4-10.4); Monocytes # 0.4 10^3/uL (0.2-0.9); Monocytes % 8.7 %; Neutrophils # 2.98 10^3/uL (1.8-7.7); Neutrophils % 64.9 %; Nucleated Red Blood Cells % 0 %; Platelet Count 54 10^3/cmm (130-400); Red Blood Count 2.85 10^6/uL (4.1-5.3); Red Cell Distribution Width 14.6 % (12.1-15.1); White Blood Count 4.6 10^3/uL (4.0-10.0)
[2022-10-21 14:41] LABS: Add Urine Culture? No; Amorphous Sediment Urine 1+ /hpf; Bacteria Urine TRACE /hpf; Mucus Urine TRACE /hpf; RBC Urine 0-4 /hpf (0-2); Squamous Epithelial Cell Urine 0-4 /hpf (0-5); WBC Urine 0-4 /hpf (0-5)
[2022-10-21 14:51] VITALS: BP 122/69; PULSE 72; O2SAT 99
[2022-10-21 14:59] LABS: Alanine Aminotransferase 13 U/L (0-33); Albumin Level 3.1 g/dL (3.5-5.2); Alkaline Phosphatase 64 U/L (35-105); Anion Gap 14.5 (5-19); Aspartate Amino Transferase 17 U/L (0-32); Blood Urea Nitrogen 27 mg/dL (8-23); Calcium 8.5 mg/dL (8.5-10.5); Carbon Dioxide 24 mmol/L (22-29); Chloride 103 mmol/L (98-107); Globulin 2.4 g/dL (1.3-4.6); Glucose 89 mg/dL (65-115); Magnesium 1.9 mg/dL (1.7-2.3); Osmolality Calculated 291 mOsm/kg (285-295); Phosphorus 2.6 mg/dL (2.5-4.5); Potassium 3.5 mmol/L (3.5-5.1); Sodium 138 mmol/L (136-145); Total Bilirubin 0.3 mg/dL (0.15-1.2); Total Protein 5.5 g/dL (6.6-8.7)
[2022-10-21 15:33] VITALS: BP 125/52; PULSE 63; RESP 16; O2SAT 99
[2022-10-21 16:11] VITALS: BP 133/51; PULSE 74; RESP 16; O2SAT 98
== END 2022-10-21 17:02 | disposition home or self-care (01) ==
PROVIDERS: Emergency Provider Emergency Medicine; PCP Family Medicine
DX: I95.9 Hypotension, unspecified (principal); I13.2 Hypertensive heart and chronic kidney disease with heart failure and with stage 5 chronic kidney disease, or end stage renal disease; N18.6 End stage renal disease; I50.30 Unspecified diastolic (congestive) heart failure; Z99.2 Dependence on renal dialysis; Z85.3 Personal history of malignant neoplasm of breast; Z86.73 Personal history of transient ischemic attack (TIA), and cerebral infarction without residual deficits; E78.5 Hyperlipidemia, unspecified
CPT/HCPCS: 80053; 81001; 83735; 84100; 85025; 99283

== ENCOUNTER 2022-11-29 16:56 | Emergency (ER) | payer MEDICARE, OTHER, SELFPAY ==
[2022-11-29 16:59] VITALS: BP 148/71; PULSE 59; RESP 16; TEMP 36.6; O2SAT 94
--- NOTE | 2022-11-29 17:33 | CTR_ITS ---
PROCEDURE INFORMATION: Exam: CT Head Without Contrast Exam date and time: 11/29/2022 5:44 PM Age: 87 years old Clinical indication: Altered mental status/memory loss; Additional info: AMS TECHNIQUE: Imaging protocol: Computed tomography of the head without contrast. Radiation optimization: All CT scans at this facility use at least one of these dose optimization techniques: automated exposure control; mA and/or kV adjustment per patient size (includes targeted exams where dose is matched to clinical indication); or iterative reconstruction. REPORTING DATA: Count of CT and Cardiac NM exams in prior 12 months: This patient has received 5 known CTs and 0 known cardiac nuclear medicine studies in the 12 months prior to the current study. COMPARISON: CT head wo con* [id number] 08/01/2022 10:20 PM RADIATION DOSE METRICS: Total DLP (mGy-cm): 865 FINDINGS: Brain: No hemorrhage. No edema. Moderate diffuse cerebral atrophy and mild sequela of chronic small vessel ischemic disease. No mass effect. Cerebral ventricles: No ventriculomegaly. Paranasal sinuses: Visualized sinuses are unremarkable. No fluid levels. Mastoid air cells: Visualized mastoid air cells are well aerated. Bones/joints: Unremarkable. No acute fracture. Soft tissues: Unremarkable. CT/CT head wo con* [id number] IMPRESSION: No acute intracranial abnormality.
--- NOTE | 2022-11-29 17:33 | XRR_ITS ---
PROCEDURE INFORMATION: Exam: XR Chest Exam date and time: 11/29/2022 5:39 PM Age: 87 years old Clinical indication: Other: AMS TECHNIQUE: Imaging protocol: Radiologic exam of the chest. Views: 1 view. COMPARISON: CR XR chest 1V portable [id number] 07/28/2022 6:40 AM FINDINGS: Lungs: Hypoinflated lungs. Questionable left basilar opacity. Pleural spaces: No pleural effusion. No pneumothorax. Heart/Mediastinum: Borderline increased heart size accentuated by the hypoinflated lungs. Bones/joints: Visualized osseous structures are intact. XR/XR chest 1V portable [id number] IMPRESSION: Hypoinflated lungs with a questionable left basilar opacity.
--- NOTE | 2022-11-29 17:33 | ECG_ITS ---
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 Measurements Intervals [place] Rate: 61 P: 62 CT: 239 QRS: -1 QRSD: 96 T: 7 QT: 422 QTc: 426 Interpretive Statements SINUS RHYTHM WITH FIRST DEGREE AV BLOCK Compared to ECG 07/28/2022 07:15:27 First degree AV block now present Electronically Signed On 11-30-2022 22:17:11 CDT by Lani Baxter M.D. [email or web address]
--- NOTE | 2022-11-29 17:37 | ED_ITS ---
HPI - General Adult General: Chief complaint: General Medical Stated complaint: possible UTI Time Seen by Provider: 11/29/22 17:01 Source: patient and EMS Limitations: no limitations History of Present Illness: 79-year-old female history of chronic kidney disease on dialysis Monday she does live at [facility]. Family states that visited her today that seen her last night she was normal he states today when he visited her she was confused. States that she was not really making any sense and seemed very confused. They state that now that she is here she is back to her baseline she is answering all my questions appropriately she knows the year she knows where she lives she knows her name is. She denies a headache or fever Associated symptoms: Reports confusion; Deny chest pain, dyspnea, headache(s), nausea, rash or vomiting Review of Systems Const: Denies: fever(s) or chills Eyes: Denies: eye discomfort ENMT: Denies: throat pain or dental pain Card: Denies: chest pain Resp: Denies: dyspnea GI: Denies: abdominal pain, nausea, vomiting or diarrhea : Denies: dysuria Musc: Denies: neck pain or back pain Skin/Breast: Denies: rash Neuro: Reports: confusion; Denies: headache(s) PFSH ED PFSH: Medical History Anemia of chronic disease Anxiety and depression DDD (degenerative disc disease) Decubitus ulcer, buttock, right, unstageable Diastolic CHF ESRD (end stage renal disease) Fibromyalgia GERD (gastroesophageal reflux disease) History of breast cancer Previously followed by Dr. Santoyo History of pulmonary embolus (PE) 08/2016 History of stroke 11/14/16 Hyperlipidemia Hypertension Incomplete bladder emptying Internal and external bleeding hemorrhoids Lumbar spinal stenosis Osteoarthritis Paroxysmal A-fib Peritoneal dialysis catheter in place Recurrent UTI Restrictive lung disease Urinary retention Surgical History History of back surgery History of esophagogastroduodenoscopy (EGD) 08/03/17 mild gastritis and duodenitis History of hemiarthroplasty of left hip 11/18/18: Dr. Mendoza History of hysterectomy History of lumpectomy of left breast History of right cataract surgery Family History Other Cancer Denies family history of Anesthesia complication Bleeding disorder Social History Second hand smoke exposure: No Alcohol intake: never Substance/Drug Use: never Adopted: No Caregiver/support person: Yes Lives independently: Yes Housing: Assisted Living Facility Marital status: Marital status details: with dementia Additional social history: FULL CODE DISCUSSED WITH PATIENT ON 02/04/20 Physical Exam Const: COMMON NORMALS: no acute distress, patient oriented x3 and healthy appearing HENMT: COMMON NORMALS: normocephalic and atraumatic HEAD & SCALP: normocephalic and atraumatic Eye: COMMON NORMALS: Equal, round and reactive pupils present and EOMs intact bilaterally PUPIL: Yes Equal, round and reactive pupils present Neck/C-Spine: COMMON NORMALS: supple Chest: COMMONS NORMALS: normal inspection of the chest and normal palpation of entire chest wall Resp: COMMON NORMALS: normal respiratory effort, No retractions, No use of accessory muscles and clear to auscultation bilaterally AUSCULTATION: clear to auscultation bilaterally Cardio: COMMON NORMALS: regular rate, regular rhythm and No murmurs present (Cardio) RATE: regular rate RHYTHM: regular rhythm GI: COMMON NORMALS: Normal to inspection, nondistended, normoactive bowel s ounds present, Soft to palpation, non-tender and no masses PALPATION: Yes Soft to palpation Extremity: COMMON NORMALS: normal to inspection and full ROM Neuro: COMMON NORMALS: patient oriented x3, moves all extremities and no focal motor deficits Psych: COMMON NORMALS: mental status grossly normal, Normal thought process present and cooperative THOUGHT PROCESS: Normal thought process present Skin: COMMON NORMALS: no rashes or lesions noted and no wounds GENERAL SKIN EXAM: no rashes or lesions noted Course Vital Signs: Vital signs: Vital Signs Temperature 97.9 F 11/29/22 16:59 Pulse Rate 63 11/29/22 19:10 Respiratory Rate 18 11/29/22 19:10 Blood Pressure 161/67 11/29/22 19:10 Pulse Oximetry 93 11/29/22 19:10 Oxygen Delivery Me thod Room Air 11/29/22 18:47 MDM - General Adult Medical Decision Making Patient presents here with period of confusion earlier today she has been completely with that she is at her baseline currently head CT blood works all normal she is wanting go back to halfway family agrees that she is stable for discharge back as well we will discharge she receives dialysis tomorrow return if worsening. Medical Records I reviewed the patient's medical records. Lab Data I reviewed the patient's lab results. 11/29/22 17:22 11/29/22 17:22 Radiology Impressions Chest X-Ray 11/29/22 17:33 IMPRESSION: Hypoinflated lungs with a questionable left basilar opacity. Head CT 11/29/22 17:33 IMPRESSION: No acute intracranial abnormality. Laboratory Results WBC 4.7 10^3/uL (4.0-10.0) 11/29/22 17: RBC 2.89 10^6/uL (4.1-5.3) L 11/29/22 17: Hgb 10.8 g/dL (11.5-15.3) L 11/29/22 17: Hct 33.7 % (37.0-47.0) L 11/29/22 17: MCV 116.6 fl (81-99) H 11/29/22 17: MCH 37.4 pg (28.0-34.0) H 11/29/22 17: MCHC 32.0 g/dL (30.0-36.0) 11/29/22 17: RDW 15.2 % (12.1-15.1) H 11/29/22 17: Plt Count 106 10^3/cmm (130-400) L 11/29/22 17: MPV 10.8 fL (7.4-10.4) H 11/29/22 17: Neut % (Auto) 53.3 % 11/29/22 17: Lymph % (Auto) 33.0 % 11/29/22 17: [place] % (Auto) 10.1 % 11/29/22 17: Eos % (Auto) 2.8 % 11/29/22 17: Baso % (Auto) 0.4 % 11/29/22 17: Neut # (Auto) 2.48 10^3/uL (1.8-7.7) 11/29/22 17: Lymph # (Auto) 1.5 10^3/uL (0.8-4.8) 11/29/22 17:22 [place] # (Auto) 0.5 10^3/uL (0.2-0.9) 11/29/22 17:22 Eos # (Auto) 0.1 10^3/uL (0.0-0.8) 11/29/22 17:22 Baso # (Auto) 0.0 10^3/uL (0.0-0.1) 11/29/22 17:22 Nucleated RBC % (auto) 0 % 11/29/22 17:22 Nucleated RBCs # 0.0 /100WBC 11/29/22 17:22 Sodium 138 mmol/L (136-145) 11/29/22 17:22 Potassium 3.9 mmol/L (3.5-5.1) 11/29/22 17:22 Chloride 100 mmol/L (98-107) 11/29/22 17:22 Carbon Dioxide 26 mmol/L (22-29) 11/29/22 17:22 Anion Gap 15.9 (5-19) 11/29/22 17:22 BUN 30 mg/dL (8-23) H 11/29/22 17:22 Creatinine 3.7 mg/dL (0.5-0.9) H 11/29/22 17:22 GFR Calculation Not Reportable 11/29/22 17:22 Glucose 87 mg/dL (65-115) 11/29/22 17:22 Calculated Osmolality 292 mOsm/kg (285-295) 11/29/22 17:22 Calcium 8.3 mg/dL (8.5-10.5) L 11/29/22 17:22 Total Bilirubin 0.3 mg/dL (0.15-1.2) 11/29/22 17:22 Direct Bilirubin 0.20 mg/dL (0.00-0.30) 11/29/22 17:22 AST 16 U/L (0-32) 11/29/22 17:22 ALT 12 U/L (0-33) 11/29/22 17:22 Alkaline Phosphatase 86 U/L (35-105) 11/29/22 17:22 Total Protein 5.4 g/dL (6.6-8.7) L 11/29/22 17:22 Albumin 3.3 g/dL (3.5-5.2) L 11/29/22 17:22 Globulin 2.1 g/dL (1.3-4.6) 11/29/22 17:22 Urine Color Yellow (Yellow) 11/29/22 17:40 Urine Appearance Clear (CLEAR) 11/29/22 17:40 Urine pH 5 (5-7) 11/29/22 17:40 Ur Specific [place] 1.010 (1.005-1.030) 11/29/22 17:40 Urine Protein Trace (Negative) 11/29/22 17:40 Urine Glucose (UA) Norm (Normal) 11/29/22 17:40 Urine Ketones Negative (Negative) 11/29/22 17:40 Urine Blood Neg (Negative) 11/29/22 17:40 Urine Nitrate Negative (Negative) 11/29/22 17:40 Urine Bilirubin 1+ (Negative) H 11/29/22 17:40 Urine Urobilinogen Norm mg/dL (Negative) 11/29/22 17:40 Ur Leukocyte Esterase Negative (Negative) 11/29/22 17:40 Urine RBC 0-4 /hpf (0-2) H 11/29/22 17:40 Urine WBC 0-4 /hpf (0-5) H 11/29/22 17:40 Ur Squamous Epith Cells 0-4 /hpf (0-5) H 11/29/22 17:40 Amorphous Sediment Not Reportable 11/29/22 17:40 Urine Bacteria Trace /hpf (NONE) 11/29/22 17:40 EKG Data EKG 1: I personally reviewed and interpreted this EKG as follows: EKG interpretation date: 11/29/22 EKG interpretation time: 18:00 Interpretation: nsr hr [address] or t wave abnormalities qr 96 qtc 424 Computer generated interpretation: Chest X-Ray 11/29/22 17:33 IMPRESSION: Hypoinflated lungs with a questionable left basilar opacity. Head CT 11/29/22 17:33 IMPRESSION: No acute intracranial abnormality. Discharge Plan Discharge Patient Disposition: Home Clinical Impression: Altered mental status Condition: Stable Prescriptions: No Action pantoprazole [Protonix] 40 mg tablet,delayed release (DR/EC) 40 mg PO BID Rx Instructions: pt unable to confirm, going by mar from halfway. med tech from halfway confirmed. acetaminophen [Tylenol] 325 mg tablet 650 mg PO Q4H PRN (Reason: Pain) Rx Instructions: pt unable to confirm, going by mar from halfway. med tech from halfway confirmed. ipratropium-albuterol 0.5 mg-3 mg(2.5 mg base)/3 mL solution for nebulization 3 ml INHALATION Q4H PRN (Reason: unknown) Rx Instructions: pt unable to confirm, going by mar from halfway. med tech from halfway confirmed. citalopram [Celexa] 10 mg tablet 10 mg PO DAILY Rx Instructions: pt unable to confirm, going by mar from halfway. med tech from halfway confirmed. isosorbide mononitrate 30 mg tablet extended release 24 hr 30 mg PO DAILY Rx Instructions: pt unable to confirm, going by mar from halfway. med tech from halfway confirmed. simethicone [Gas Relief (simethicone)] 80 mg tablet,chewable 80 mg PO DAILY PRN (Reason: abdominal distention) loperamide [Anti-Diarrheal (loperamide)] 2 mg capsule 2 mg PO Q8H PRN (Reason: loose stool) bisacodyl 10 mg suppository 10 mg ID DAILY PRN (Reason: constipation) Fleet Enema 19-7 gram/118 mL enema 118 ml ID DAILY PRN (Reason: constipation) bismuth [id number] Suppository ID TID PRN (Reason: Bleeding hemorrhoids) cholecalciferol (vitamin D3) [Vitamin D3] 25 mcg (1,000 unit) capsule 25 mcg PO DAILY (DME) elastic bandage 3 bandage See Rx Instructions .Route Rx Instructions: Apply to LLE as needed for swelling and continue to elevate the LE's as ne eded. cefdinir 300 mg capsule 300 mg PO .QOD lidocaine-prilocaine 2.5-2.5 % cream 1 applic topical .COMPLEX Rx Instructions: 1 applic topical prior to dialysis; sorbitol 70 % solution 60 ml PO DAILY PRN (Reason: constipation) (DME) elastic bandage Bandage See Rx Instructions .Route Rx Instructions: Apply every day to LLE as needed. witch maia-glycerin (hamamel) Pads, Medicated 1 pad topical BID PRN (Reason: hemorrhoids) lidocaine-menthol [Icy Hot Patch (lido-menthol)] 4-1 % adhesive patch,medicated topical Q4H PRN (Reason: Bleeding hemorrhoids) ondansetron HCl 8 mg tablet 8 mg PO TID PRN (Reason: nausea and vomiting) promethazine 12.5 mg suppository 12.5 mg ID Q8H PRN (Reason: nausea and vomiting) alprazolam 0.25 mg tablet 0.25 mg PO BID PRN (Reason: Anxiety) 30 Days Qty: 60 5RF carisoprodol 350 mg tablet 350 mg PO BID PRN (Reason: muscle spasticity) Qty: 60 3RF linezolid 600 mg tablet 600 mg PO Q12H 14 Days Qty: 28 0RF Rx Instructions: Please give at 6am and 6pm. hydrocodone-acetaminophen 10-325 mg tablet 1 tab PO Q4H 30 Days Qty: 180 0RF Xtampza ER 18 mg cap,sprinkl,ER12hr(DONT CRUSH) 18 mg PO BID 30 Days Qty: 60 0RF diphenoxylate-atropine [Lomotil] 2.5-0.025 mg tablet 1 tab PO QID 30 Days Qty: 120 0RF Marybel-Eugenio Rx 1-60-300 mg-mg-mcg Tablet 1 tab PO DAILY Rx Instructions: pt unable to confirm, going by mar from halfway. med tech from halfway confirmed. Eliquis 2.5 mg Tablet 2.5 mg PO BID Hold Instructions: Resume on 04/03/21. Rx Instructions: pt unable to confirm, going by mar from halfway. med tech from halfway confirmed. 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
[2022-11-29 17:51] LABS: Basophils % 0.4 %; Eosinophils # 0.1 10^3/uL (0.0-0.8); Eosinophils % 2.8 %; Hematocrit 33.7 % (37.0-47.0); Hemoglobin 10.8 g/dL (11.5-15.3); Lymphocytes # 1.5 10^3/uL (0.8-4.8); Mean Corpuscular Hemoglobin 37.4 pg (28.0-34.0); Mean Corpuscular Volume 116.6 fl (81-99); Mean Platelet Volume 10.8 fL (7.4-10.4); Monocytes # 0.5 10^3/uL (0.2-0.9); Monocytes % 10.1 %; Neutrophils # 2.48 10^3/uL (1.8-7.7); Neutrophils % 53.3 %; Nucleated Red Blood Cells % 0 %; Platelet Count 106 10^3/cmm (130-400); Red Blood Count 2.89 10^6/uL (4.1-5.3); Red Cell Distribution Width 15.2 % (12.1-15.1); White Blood Count 4.7 10^3/uL (4.0-10.0)
[2022-11-29 18:13] LABS: Anion Gap 15.9 (5-19); Blood Urea Nitrogen 30 mg/dL (8-23); Calcium 8.3 mg/dL (8.5-10.5); Carbon Dioxide 26 mmol/L (22-29); Chloride 100 mmol/L (98-107); Glucose 87 mg/dL (65-115); Osmolality Calculated 292 mOsm/kg (285-295); Potassium 3.9 mmol/L (3.5-5.1); Sodium 138 mmol/L (136-145)
[2022-11-29 18:32] LABS: Add Urine Culture? No; Add Urine Microscopic? YES; Bacteria Urine TRACE /hpf; Bilirubin Urine 1+ (Negative); Blood Urine Neg (Negative); Glucose Urine UA Norm (Normal); Ketones Urine Negative (Negative); Leukocyte Esterase Urine Negative (Negative); Nitrate Urine Negative (Negative); Protein Urine Trace (Negative); RBC Urine 0-4 /hpf (0-2); Squamous Epithelial Cell Urine 0-4 /hpf (0-5); Urine Appearance Clear (CLEAR); Urine Color Yellow (Yellow); Urobilinogen Urine Norm (Negative); WBC Urine 0-4 /hpf (0-5); pH Urine 5 (5-7)
[2022-11-29 18:37] LABS: Alanine Aminotransferase 12 U/L (0-33); Albumin Level 3.3 g/dL (3.5-5.2); Alkaline Phosphatase 86 U/L (35-105); Aspartate Amino Transferase 16 U/L (0-32); Globulin 2.1 g/dL (1.3-4.6); Total Bilirubin 0.3 mg/dL (0.15-1.2); Total Protein 5.4 g/dL (6.6-8.7)
[2022-11-29 18:47] VITALS: BP 147/63; PULSE 63; RESP 18; O2SAT 90
[2022-11-29] MEDS: HYDROcodone-acetaminophen 10-325 mg Tablet 1 TAB PO (19:04)
[2022-11-29 19:10] VITALS: BP 161/67; PULSE 63; RESP 18; O2SAT 93
== END 2022-11-29 19:15 | disposition home or self-care (01) ==
PROVIDERS: Family Medicine; Emergency Provider Emergency Medicine; PCP Family Medicine
DX: R41.82 Altered mental status, unspecified (principal); Z79.01 Long term (current) use of anticoagulants; I13.2 Hypertensive heart and chronic kidney disease with heart failure and with stage 5 chronic kidney disease, or end stage renal disease; N18.6 End stage renal disease; I50.30 Unspecified diastolic (congestive) heart failure; Z85.3 Personal history of malignant neoplasm of breast; Z86.73 Personal history of transient ischemic attack (TIA), and cerebral infarction without residual deficits; E78.5 Hyperlipidemia, unspecified; Z99.2 Dependence on renal dialysis
CPT/HCPCS: 36415; 51701; 70450; 71045; 80048; 80076; 81001; 85025; 93005; 99285

== ENCOUNTER 2022-12-14 11:00 | Outpatient (CLI) | payer MEDICARE, OTHER, SELFPAY | END 2022-12-14 11:01 | disposition home or self-care (01) | LOC: SLEEP 12-16 09:21 | PROVIDERS: PCP Family Medicine; Visit Provider Family Medicine | DX: J96.11 Chronic respiratory failure with hypoxia (principal); I50.30 Unspecified diastolic (congestive) heart failure; N18.6 End stage renal disease | CPT/HCPCS: 94762 ==

== ENCOUNTER → 2023-01-12 13:09 | Outpatient (BNVA) | payer MEDICARE, OTHER, SELFPAY | PROVIDERS: PCP Family Medicine; Visit Provider Nurse Practitioner Family | DX: I96 Gangrene, not elsewhere classified (principal); L89.313 Pressure ulcer of right buttock, stage 3; L89.153 Pressure ulcer of sacral region, stage 3; L89.102 Pressure ulcer of unspecified part of back, stage 2 | CPT/HCPCS: 11042; 97597; 99213; A6212 ×2 ==

== ENCOUNTER 2023-01-18 21:51 | Inpatient (IN) | payer MEDICARE, OTHER, SELFPAY ==
[2023-01-18 21:59] VITALS: BP 144/58; PULSE 68; RESP 16; TEMP 37.1; O2SAT 94; BMI 19.2
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
--- NOTE | 2023-01-18 22:01 | XRR_ITS ---
PROCEDURE INFORMATION: Exam: XR Left Hip Exam date and time: 01/18/2023 10:27 PM Age: 87 years old Clinical indication: Hip pain; Left hip; Prior surgery; Surgery date: 6+ months; Additional info: Fall TECHNIQUE: Imaging protocol: Radiologic exam of the left hip. Views: 2 or 3 views hip with pelvis when performed. COMPARISON: CT abdomen pelvis wo con [id number] 01/01/2022 12:33 AM FINDINGS: Bones/joints: There is a right total hip arthroplasty in anatomic alignment. No fracture. posterior fusion hardware in the lower lumbar spine. Severe right hip osteoarthritis. Soft tissues: Unremarkable. Gastrointestinal tract: There is a large amount of formed stool in the colon. No bowel dilation. XR/XR hip LT 2-3V wo/w pel* [id number] IMPRESSION: 1. No fracture. 2. Severe constipation. 3. Severe right hip osteoarthritis.
--- NOTE | 2023-01-18 22:01 | XRR_ITS ---
PROCEDURE INFORMATION: Exam: XR Chest Exam date and time: 01/18/2023 10:32 PM Age: 87 years old Clinical indication: Injury or trauma; Fall TECHNIQUE: Imaging protocol: Radiologic exam of the chest. Views: 1 view. COMPARISON: CR XR chest 1V portable [id number] 11/29/2022 5:39 PM FINDINGS: Tubes, catheters and devices: Surgical clips are present overlying the left chest wall and left axilla. Lungs: Hazy left basilar opacity which could be secondary to atelectasis or pneumonia. Pleural spaces: Tiny bilateral pleural effusions. Heart/Mediastinum: Unremarkable. No cardiomegaly. Bones/joints: Unremarkable. XR/XR chest 1V portable [id number] IMPRESSION: 1. Hazy left basilar opacity which could be secondary to atelectasis or pneumonia. 2. No evidence of acute injury. 3. Tiny bilateral pleural effusions.
--- NOTE | 2023-01-18 22:04 | ED_ITS ---
HPI - Fall General: Chief Complaint: Fall Stated Complaint: FALL Time Seen by Provider: 01/18/23 21:54 Source: patient and EMS Mode of arrival: EMS Limitations: no limitations History of Present Illness: 87-year-old female who is here from skilled nursing she states that she has to walk with a walker and does have a difficult time getting around she had went to the bathroom was on the toilet and fell. States she landed on her left side and had severe left hip pain. The fall just happened prior arrival she did hit her head as well she denies any loss conscious she denies any pain currently besides that left hip. Rates the pain a 6 out of 10 Associated symptoms-after fall: Denies abdominal pain, chest pain or neck pain Review of Systems Const: Denies: fever(s), chills, body aches or change in appetite Eyes: Denies: eye discomfort ENMT: Denies: throat pain or dental pain Card: Denies: chest pain Resp: Denies: dyspnea GI: Denies: abdominal pain, nausea, vomiting or diarrhea Musc: Reports: extremity pain; Denies: neck pain or back pain Skin/Breast: Denies: rash PFSH ED PFSH: Medical History Anemia of chronic disease Anxiety and depression DDD (degenerative disc disease) Decubitus ulcer, buttock, right, unstageable Diastolic CHF ESRD (end stage renal disease) Fibromyalgia GERD (gastroesophageal reflux disease) History of breast cancer Previously followed by Dr. Santoyo History of pulmonary embolus (PE) 08/2016 History of stroke 11/14/16 Hyperlipidemia Hypertension Incomplete bladder emptying Internal and external bleeding hemorrhoids Lumbar spinal stenosis Osteoarthritis Paroxysmal A-fib Peritoneal dialysis catheter in place Recurrent UTI Restrictive lung disease Urinary retention Surgical History History of back surgery History of esophagogastroduodenoscopy (EGD) 08/03/17 mild gastritis and duodenitis History of hemiarthroplasty of left hip 11/18/18: Dr. Mendoza History of hysterectomy History of lumpectomy of left breast History of right cataract surgery Family History Other Cancer Denies family history of Anesthesia complication Bleeding disorder Social History Second hand smoke exposure: No Alcohol intake: never Substance/Drug Use: never Adopted: No Caregiver/support person: Yes Lives independently: Yes Housing: Assisted Living Facility Marital status: Marital status details: with dementia Additional social history: FULL CODE DISCUSSED WITH PATIENT ON 02/04/20 Physical Exam Const: COMMON NORMALS: no acute distress, patient oriented x3 and healthy appearing HENMT: COMMON NORMALS: normocephalic; head/scalp not atraumatic (Small hematoma to posterior scalp) HEAD & SCALP: normocephalic; not atraumatic (Small hematoma to posterior scalp) Eye: COMMON NORMALS: conjunctivae normal CONJUNCTIVA: Yes conjunctivae normal Neck/C-Spine: COMMON NORMALS: full ROM and supple Chest: COMMONS NORMALS: normal inspection of the chest and normal palpation of entire chest wall Resp: COMMON NORMALS: normal respiratory effort, No retractions, No use of accessory muscles and clear to auscultation bilaterally AUSCULTATION: clear to auscultation bilaterally Cardio: COMMON NORMALS: regular rate, regular rhythm and No murmurs present (Cardio) RATE: regular rate RHYTHM: regular rhythm GI: COMMON NORMALS: Normal to inspection, nondistended, normoactive bowel sounds present, Soft to palpation, non-tender and no masses PALPATION: Yes Soft to palpation Extremity: NARRATIVE EXTREMITY EXAM: Tenderness noted to left hip distal pulses intact Neuro: COMMON NORMALS: patient oriented x3, moves all extremities and no focal motor deficits Psych: COMMON NORMALS: mental status grossly normal, Normal thought process present and cooperative THOUGHT PROCESS: Normal thought process present Skin: COMMON NORMALS: no rashes or lesions noted and no wounds GENERAL SKIN EXAM: no rashes or lesions noted Course Vital Signs: Vital signs: Vital Signs Temperature 98.7 F 01/18/23 21:59 Pulse Rate 75 01/19/23 00:53 Respiratory Rate 20 H 01/19/23 00:53 Blood Pressure 142/62 01/19/23 00:53 Pulse Oximetry 98 01/19/23 00:53 Oxygen Delivery Me thod Nasal Cannula 01/19/23 00:53 Oxygen Flow Rate 1.5 01/19/23 00:53 MDM - Fall Medical Decision Making Patient presents here with a left acetabular fracture normal rami fracture from a fall. I did have orthopedics at [facility] review the films for possible surgery I did speak to the orthopedist on-call there he did feel like due to her age and her osteoporosis that this was nonoperable and spoke to family they are in agreements that they do not want surgery at this time will admit I did speak to orthopedist here to consult this patient likely needs to be admitted now for a detention home placement as she lives in assisted [place] at this time. Medical Records I reviewed the patient's medical records. Lab Data I reviewed the patient's lab results. 01/18/23 23:05 01/18/23 23:05 Radiology Impressions Chest X-Ray 01/18/23 22:01 IMPRESSION: 1. Hazy left basilar opacity which could be secondary to atelectasis or pneumonia. 2. No evidence of acute injury. 3. Tiny bilateral pleural effusions. Head CT 01/18/23 22:01 IMPRESSION: 1. No evidence of acute injury. 2. Mild parenchymal atrophy and chronic small vessel disease. Hip/Pelvis X-Ray 01/18/23 22:01 IMPRESSION: 1. No fracture. 2. Severe constipation. 3. Severe right hip osteoarthritis. Hip CT 01/18/23 22:40 IMPRESSION: 1. Left iliac wing mildly displaced fracture with extension to the sacroiliac joint. 2. Left inferior pubic ramus fracture along with a suspected left superior pubic ramus fracture near the junction with the acetabulum 3. Comminuted left acetabular fracture involving the anterior, superior and posterior pepper with mild displacement, beam hardening artifact from left hip arthroplasty changes somewhat limits evaluation. 4. Constipation. 5. Severe right hip osteoarthritis. 6. Lumbar spine surgical hardware. Laboratory Results WBC 9.0 10^3/uL (4.0-10.0) 01/18/23 23:05 RBC 2.84 10^6/uL (4.1-5.3) L 01/18/23 23:05 Hgb 10.2 g/dL (11.5-15.3) L 01/18/23 23:05 Hct 32.0 % (37.0-47.0) L 01/18/23 23:05 MCV 112.7 fl (81-99) H 01/18/23 23:05 MCH 35.9 pg (28.0-34.0) H 01/18/23 23:05 MCHC 31.9 g/dL (30.0-36.0) 01/18/23 23:05 RDW 13.6 % (12.1-15.1) 01/18/23 23:05 Plt Count 153 10^3/cmm (130-400) 01/18/23 23:05 MPV 10.8 fL (7.4-10.4) H 01/18/23 23:05 Neut % (Auto) 82.2 % 01/18/23 23:05 Lymph % (Auto) 8.9 % 01/18/23 23:05 Wharton % (Auto) 6.2 % 01/18/23 23:05 Eos % (Auto) 1.4 % 01/18/23 23:05 Baso % (Auto) 0.2 % 01/18/23 23:05 Neut # (Auto) 7.38 10^3/uL (1.8-7.7) 01/18/23 23:05 Lymph # (Auto) 0.8 10^3/uL (0.8-4.8) 01/18/23 23:05 Wharton # (Auto) 0.6 10^3/uL (0.2-0.9) 01/18/23 23:05 Eos # (Auto) 0.1 10^3/uL (0.0-0.8) 01/18/23 23:05 Baso # (Auto) 0.0 10^3/uL (0.0-0.1) 01/18/23 23:05 Nucleated RBC % (auto) 0 % 01/18/23 23:05 Nucleated RBCs # 0.0 /100WBC 01/18/23 23:05 PT 14.10 SECONDS (12.1-14.9) 01/18/23 23:05 INR 1.05 (0.8-1.2) 01/18/23 23:05 Sodium 136 mmol/L (136-145) 01/18/23 23:05 Potassium 3.8 mmol/L (3.5-5.1) 01/18/23 23:05 Chloride 100 mmol/L (98-107) 01/18/23 23:05 Carbon Dioxide 26 mmol/L (22-29) 01/18/23 23:05 Anion Gap 13.8 (5-19) 01/18/23 23:05 BUN 19 mg/dL (8-23) 01/18/23 23:05 Creatinine 2.7 mg/dL (0.5-0.9) H 01/18/23 23:05 GFR Calculation Not Reportable 01/18/23 23:05 Glucose 94 mg/dL (65-115) 01/18/23 23:05 Calculated Osmolality 284 mOsm/kg (285-295) L 01/18/23 23:05 Calcium 8.9 mg/dL (8.5-10.5) 01/18/23 23:05 Total Bilirubin 0.3 mg/dL (0.15-1.2) 01/18/23 23:05 AST 21 U/L (0-32) 01/18/23 23:05 ALT 15 U/L (0-33) 01/18/23 23:05 Alkaline Phosphatase 96 U/L (35-105) 01/18/23 23:05 Total Protein 6.0 g/dL (6.6-8.7) L 01/18/23 23:05 Albumin 3.1 g/dL (3.5-5.2) L 01/18/23 23:05 Globulin 2.9 g/dL (1.3-4.6) 01/18/23 23:05 EKG Data EKG 1: I personally reviewed and interpreted this EKG as follows: EKG interpretation date: 01/18/23 EKG interpretation time: 22:12 Interpretation: nsr hr [address] or t wave abnormalities qrs 102 qtc 421 Discharge Plan Discharge Patient Disposition: Admitted As Inpatient Clinical Impression: Acetabulum fracture, left, Fall Condition: Stable Prescriptions: No Action pantoprazole [Protonix] 40 mg tablet,delayed release (DR/EC) 40 mg PO BID Rx Instructions: pt unable to confirm, going by mar from skilled nursing. med tech from skilled nursing confirmed. acetaminophen [Tylenol] 325 mg tablet 650 mg PO Q4H PRN (Reason: Pain) Rx Instructions: pt unable to confirm, going by mar from skilled nursing. med tech from skilled nursing confirmed. ipratropium-albuterol 0.5 mg-3 mg(2.5 mg base)/3 mL solution for nebulization 3 ml INHALATION Q4H PRN (Reason: unknown) Rx Instructions: pt unable to confirm, going by mar from skilled nursing. med tech from skilled nursing confirmed. citalopram [Celexa] 10 mg tablet 10 mg PO DAILY Rx Instructions: pt unable to confirm, going by mar from skilled nursing. med tech from skilled nursing confirmed. isosorbide mononitrate 30 mg tablet extended release 24 hr 30 mg PO DAILY Rx Instructions: pt unable to confirm, going by mar from skilled nursing. med tech from skilled nursing confirmed. simethicone [Gas Relief (simethicone)] 80 mg tablet,chewable 80 mg PO DAILY PRN (Reason: abdominal distention) loperamide [Anti-Diarrheal (loperamide)] 2 mg capsule 2 mg PO Q8H PRN (Reason: loose stool) bisacodyl 10 mg suppository 10 mg AL DAILY PRN (Reason: constipation) Fleet Enema 19-7 gram/118 mL enema 118 ml AL DAILY PRN (Reason: constipation) cholecalciferol (vitamin D3) [Vitamin D3] 25 mcg (1,000 unit) capsule 25 mcg PO DAILY (DME) elastic bandage 3 bandage See Rx Instructions .Route Rx Instructions: Apply to LLE as needed for swelling and continue to elevate the LE's as needed. cefdinir 300 mg capsule 300 mg PO .QOD lidocaine-prilocaine 2.5-2.5 % cream 1 applic topical .COMPLEX Rx Instructions: 1 applic topical prior to dialysis; sorbitol 70 % solution 60 ml PO DAILY PRN (Reason: constipation) (DME) elastic bandage Bandage See Rx Instructions .Route Rx Instructions: Apply every day to LLE as needed. witch maia-glycerin (hamamel) Pads, Medicated 1 pad topical BID PRN (Reason: hemorrhoids) lidocaine-menthol [Icy Hot Patch (lido-menthol)] 4-1 % adhesive patch,m edicated topical Q4H PRN (Reason: Bleeding hemorrhoids) ondansetron HCl 8 mg tablet 8 mg PO TID PRN (Reason: nausea and vomiting) promethazine 12.5 mg suppository 12.5 mg AL Q8H PRN (Reason: nausea and vomiting) bumetanide 1 mg tablet 1 mg PO .COMPLEX Rx Instructions: 1 mg orally On non dialysis days; alprazolam 0.25 mg tablet 0.25 mg PO BID PRN (Reason: Anxiety) 30 Days Qty: 60 5RF carisoprodol 350 mg tablet 350 mg PO BID PRN (Reason: muscle spasticity) Qty: 60 3RF diphenoxylate-atropine [Lomotil] 2.5-0.025 mg tablet 1 tab PO QID 30 Days Qty: 120 0RF hydrocodone-acetaminophen 10-325 mg tablet 1 tab PO Q4H 30 Days Qty: 180 0RF Marybel-Eugenio Rx 1-60-300 mg-mg-mcg Tablet 1 tab PO DAILY Rx Instructions: pt unable to confirm, going by mar from skilled nursing. med tech from skilled nursing confirmed. 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
--- NOTE | 2023-01-18 22:12 | ECG_ITS ---
[facility] Test Date: 2023-01-18 Pat Name: Milla Thomas Department: Room: Gender: Female [employer]: : 1935 Requested By: Marty Kramer Order Number: [id number] Tisha MD: Jessica Blackmon M.D. Measurements Intervals [place] Rate: 66 P: 76 LA: 227 QRS: 27 QRSD: 102 T: 45 QT: 408 QTc: 428 Interpretive Statements SINUS RHYTHM WITH FIRST DEGREE AV BLOCK Compared to ECG 11/29/2022 18:00:24 No significant changes Electronically Signed On 01-18-2023 22:20:33 CDT by Jessica Blackmon M.D. [email or web address]
--- NOTE | 2023-01-18 22:40 | CTR_ITS ---
PROCEDURE INFORMATION: Exam: CT Left Lower Extremity Without Contrast, Hip Exam date and time: 01/18/2023 11:20 PM Age: 87 years old Clinical indication: Injury or trauma; Fall; Fracture, traumatic; Closed fracture; Patient HX: Attn pelvis and left hip for fractures TECHNIQUE: Imaging protocol: CT of the left lower extremity without contrast was performed. Exam focused on the hip. Radiation optimization: All CT scans at this facility use at least one of these dose optimization techniques: automated exposure control; mA and/or kV adjustment per patient size (includes targeted exams where dose is matched to clinical indication); or iterative reconstruction. REPORTING DATA: Count of CT and Cardiac NM exams in prior 12 months: This patient has received 5 known CTs and 0 known cardiac nuclear medicine studies in the 12 months prior to the current study. COMPARISON: CR (PELVIS, ) 01/18/2023 10:27 PM RADIATION DOSE METRICS: Total DLP (mGy-cm): 601.52 FINDINGS: Bones/joints: Left iliac wing mildly displaced fracture with extension to the sacroiliac joint. Left inferior pubic ramus fracture along with a suspected left superior pubic ramus fracture near the junction with the acetabulum. Comminuted left acetabular fracture involving the anterior, superior and posterior pepper with mild displacement, beam hardening artifact from left hip arthroplasty changes somewhat limits evaluation. Severe right hip osteoarthritis. Lumbar spine surgical hardware. Soft tissues: Normal. Bowel: Constipation. CT/CT hip LT wo con* [id number] IMPRESSION: 1. Left iliac wing mildly displaced fracture with extension to the sacroiliac joint. 2. Left inferior pubic ramus fracture along with a suspected left superior pubic ramus fracture near the junction with the acetabulum 3. Comminuted left acetabular fracture involving the anterior, superior and posterior pepper with mild displacement, beam hardening artifact from left hip arthroplasty changes somewhat limits evaluation. 4. Constipation. 5. Severe right hip osteoarthritis. 6. Lumbar spine surgical hardware.
[2023-01-18 23:14] VITALS: BP 156/55; PULSE 73; O2SAT 100
[2023-01-18 23:35] LABS: Basophils % 0.2 %; Eosinophils # 0.1 10^3/uL (0.0-0.8); Eosinophils % 1.4 %; Hemoglobin 10.2 g/dL (11.5-15.3); Lymphocytes # 0.8 10^3/uL (0.8-4.8); Lymphocytes % 8.9 %; Mean Corpuscular HGB Conc 31.9 g/dL (30.0-36.0); Mean Corpuscular Hemoglobin 35.9 pg (28.0-34.0); Mean Corpuscular Volume 112.7 fl (81-99); Mean Platelet Volume 10.8 fL (7.4-10.4); Monocytes # 0.6 10^3/uL (0.2-0.9); Monocytes % 6.2 %; Neutrophils # 7.38 10^3/uL (1.8-7.7); Neutrophils % 82.2 %; Nucleated Red Blood Cells % 0 %; Platelet Count 153 10^3/cmm (130-400); Red Blood Count 2.84 10^6/uL (4.1-5.3); Red Cell Distribution Width 13.6 % (12.1-15.1)
[2023-01-18 23:51] LABS: INR 1.05 (0.8-1.2)
[2023-01-18 23:57] LABS: Alanine Aminotransferase 15 U/L (0-33); Albumin Level 3.1 g/dL (3.5-5.2); Alkaline Phosphatase 96 U/L (35-105); Anion Gap 13.8 (5-19); Aspartate Amino Transferase 21 U/L (0-32); Blood Urea Nitrogen 19 mg/dL (8-23); Calcium 8.9 mg/dL (8.5-10.5); Carbon Dioxide 26 mmol/L (22-29); Chloride 100 mmol/L (98-107); Globulin 2.9 g/dL (1.3-4.6); Glucose 94 mg/dL (65-115); Osmolality Calculated 284 mOsm/kg (285-295); Potassium 3.8 mmol/L (3.5-5.1); Sodium 136 mmol/L (136-145); Total Bilirubin 0.3 mg/dL (0.15-1.2)
[2023-01-19] VITALS (13 sets, daily range): BP systolic 105–143; BP diastolic 42–62; PULSE 62–78; RESP 15–20; TEMP 36.9–37.4; O2SAT 88–99
[2023-01-19] MEDS: HYDROcodone-acetaminophen 7.5-325 mg Tablet 1 TAB PO (00:55)
[2023-01-19] MEDS: HYDROmorphone 1 mg/mL INJ 1 mL 0.5 MG IVP ×2 (02:33→15:52)
--- NOTE | 2023-01-19 07:07 | P.HP_ITS ---
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 Since then she has had left-sided severe hip pain. She states that she also hit her head however denies any loss of consciousness. CT of the hip performed in the ER showed left iliac wing mildly displaced fracture with extension into the sacroiliac joint. Also seen is a soledad pected left superior pubic ramus fracture near the junction with the acetabulum. Comminuted left acetabular fracture involving the anterior superior and posterior pepper with mild displacement with some artifact around the left hip arthroplasty. ER physician attempted to transfer the patient at [facility] for possible surgery and discussed the case with the Ortho potation on-call. It was opined that due to her age and osteoporosis this was on nonoperable fracture and conservative management has been recommended. \She will be seen by the orthopedic service here for recommendations with regards to medical management of her fracture. She received Dilaudid in the emergency room following which her pain is controlled. Review of Systems General: Reports: 10 or more systems reviewed and unremarkable except in HPI and below Const: Denies: fever(s), chills or body aches Eyes: Denies: change in vision, blurry vision or photophobia ENMT: Reports: hoarseness; Denies: throat pain, enlarged tonsils, odynophagia or nasal congestion Card: Denies: chest pain, palpitations, irregular heart rhythm, edema, swelling of feet/ankles, lightheadedness, pre-syncope, dyspnea on exertion or orthopnea Resp: Denies: dyspnea, productive cough, non-productive cough, wheezing, stridor, pain on inspiration, change in phlegm color, hemoptysis or chest congestion GI: Denies: abdominal pain, nausea, vomiting, hematemesis, coffee ground emesis, dysphagia, heartburn, diarrhea, constipation, GI cramping, change in stool character, hematochezia or melena : Denies: flank pain, difficulty voiding, dysuria, urinary frequency, urinary urgency, urinary hesitancy or hematuria Musc: Denies: neck pain, back pain, extremity pain, joint swelling, joint warmth or deformity Neuro: Denies: headache(s), numbness in extremities, weakness in extremities, sensory changes, difficulty walking, frequent falls, dizziness, vertigo, behavioral changes, Slurred speech present or seizure-like activity Psych: Denies: anxiety, depression, suicidal ideation or homicidal ideation Endo: Denies: polyuria, polydipsia, tired all the time, cold intolerance or hot flashes Tino/Lymph: Denies: easy bruising or easy bleeding Medications/Allergies Home Medications Medication Instructions Recorded Confirmed Last Taken Type acetaminophen 325 mg tablet 650 mg PO Q4H PRN Pain 11/13/19 01/18/23 03/29/21 History (Tylenol) citalopram 10 mg tablet (Celexa) 10 mg PO DAILY 11/13/19 01/18/23 03/30/21 History ipratropium 0.5 mg-albuterol 3 mg 3 ml inhalation Q4H PRN unknown 11/13/19 01/18/23 Unknown History (2.5 mg base)/3 mL nebulization soln isosorbide mononitrate 30 mg 30 mg PO DAILY 11/13/19 01/18/23 03/30/21 History tablet,extended release 24 hr pantoprazole 40 mg tablet,delayed 40 mg PO BID 11/13/19 01/18/23 03/30/21 History release (Protonix) vitamin B comp no.3-folic acid 1 1 tab PO DAILY 02/25/20 01/18/23 03/30/21 History mg-vit C 60 mg-biotin 300 mcg tablet (Marybel-Eugenio Rx) tamsulosin 0.4 mg capsule (Flomax) 0.4 mg PO DAILY 09/08/20 01/18/23 03/29/21 Hi story calcium acetate(phosphat bind) 667 667 mg PO TID 03/29/21 01/18/23 03/29/21 History mg tablet bisacodyl 10 mg rectal suppository 10 mg CO DAILY PRN constipation 10/10/21 01/18/23 Unknown History cefdinir 300 mg capsule 300 mg PO .QOD Dialysis 10/10/21 01/17/23 Unknown History cholecalciferol (vitamin D3) 25 25 mcg PO DAILY 10/10/21 01/18/23 Unknown History mcg (1,000 unit) capsule (Vitamin D3) elastic bandage 10/10/21 01/18/23 Unknown History elastic bandage 3 10/10/21 01/18/23 Unknown History lidocaine 4 %-menthol 1 % topical patch topical Q4H PRN Bleeding 10/10/21 01/18/23 Unknown History patch (Icy Hot Patch hemorrhoids (lidocaine-menthol)) lidocaine-prilocaine 2.5 %-2.5 % 1 applic topical .COMPLEX 10/10/21 01/18/23 Unknown History topical cream loperamide 2 mg capsule 2 mg PO Q8H PRN loose stool 10/10/21 01/18/23 Unknown H istory (Anti-Diarrheal (loperamide)) ondansetron HCl 8 mg tablet 8 mg PO TID PRN nausea and vomiting 10/10/21 01/18/23 Unknown History promethazine 12.5 mg rectal 12.5 mg CO Q8H PRN nausea and 10/10/21 01/18/23 Unknown History suppository vomiting simethicone 80 mg chewable tablet 80 mg PO DAILY PRN abdominal 10/10/21 01/18/23 Unknown History (Gas Relief (simethicone)) distention sodium phosphates 19 gram-7 118 ml CO DAILY PRN constipation 10/10/21 01/18/23 Unknown History gram/118 mL enema (Fleet Enema) sorbitol 70 % solution 60 ml PO DAILY PRN constipation 10/10/21 01/18/23 Unknown History witch maia-glycerin (hamamel) 1 pad topical BID PRN hemorrhoids 10/10/21 01/18/23 Unknown History topical pads alprazolam 0.25 mg tablet 0.25 mg PO BID PRN Anxiety 30 days 07/07/22 01/18/23 Unknown Rx #60 tabs carisoprodol 350 mg tablet 350 mg PO BID PRN muscle 07/17/22 01/18/23 Unknown Rx spasticity #60 tabs diphenoxylate-atropine 2.5 1 tab PO QID 30 days #120 tabs 12/22/22 01/18/23 Unknown Rx mg-0.025 mg tablet (Lomotil) hydrocodone 10 mg-acetaminophen 1 tab PO Q4H pain 30 days #180 tabs 12/29/22 01/18/23 Unknown Rx 325 mg tablet bumetanide 1 mg tablet 1 mg PO .COMPLEX 01/18/23 01/18/23 Unknown History Allergies Allergy/AdvReac Type Severity Reaction Status Date / Time amitriptyline [From Elavil] Allergy Unknown Unknown Verified 01/18/23 13:07 cyclobenzaprine Allergy Unknown Unknown Verified 01/18/23 13:07 [From Flexeril] Penicillins Allergy Unknown Unknown Verified 01/18/23 13:07 pentazocine [From Talwin] Allergy Unknown Unknown Verified 01/18/23 13:07 pregabalin [From Lyrica] Allergy Unknown Unknown Verified 01/18/23 13:07 tizanidine Allergy Unknown Unknown Verified 01/18/23 13:07 morphine Allergy Unknown Verified 01/18/23 13:07 sulfamethoxazole AdvReac kidney Verified 01/18/23 13:07 [From Bactrim] trimethoprim [From Bactrim] AdvReac kidney Verified 01/18/23 13:07 PFSH Acute PFSH: Medical History Anemia of chronic disease Anxiety and depression DDD (degenerative disc disease) Decubitus ulcer, buttock, right, unstageable Diastolic CHF ESRD (end stage renal disease) Fibromyalgia GERD (gastroesophageal reflux disease) History of breast cancer Previously followed by Dr. Santoyo History of pulmonary embolus (PE) 08/2016 History of stroke 11/14/16 Hyperlipidemia Hypertension Incomplete bladder emptying Internal and external bleeding hemorrhoids Lumbar spinal stenosis Osteoarthritis Paroxysmal A-fib Peritoneal dialysis catheter in place Recurrent UTI Restrictive lung disease Urinary retention Surgical History History of back surgery History of esophagogastroduodenoscopy (EGD) 08/03/17 mild gastritis and duodenitis History of hemiarthroplasty of left hip 11/18/18: Dr. Mendoza History of hysterectomy History of lumpectomy of left breast History of right cataract surgery Family History Other Cancer Denies family history of Anesthesia complication Bleeding disorder Social History Second hand smoke exposure: No Alcohol intake: never Substance/Drug Use: never Adopted: No Caregiver/support person: Yes Lives independently: Yes Housing: Assisted Living Facility Marital status: Marital status details: with dementia Additional social history: FULL CODE DISCUSSED WITH PATIENT ON 02/04/20 Vitals/I&O/Wt Last Vital Signs Temp 98.7 F 01/18/23 21:59 Pulse 62 01/19/23 02:32 Resp 18 01/19/23 02:33 BP 105/57 01/19/23 02:32 Pulse Ox 95 01/19/23 02:33 O2 Del Method Nasal Cannula 01/19/23 03:08 O2 Flow Rate 2 01/19/23 02:30 Weight last 48 hrs Weight 50.802 kg Physical Exam Narrative: General: No acute distress, AO x3 HEENT: PERRLA, pupils bilaterally equal and reactive, pallors not present Chest: Normal vesicular breath sounds, no added sounds, equal good air entry bilaterally CVS: S1-S2 regular, no murmurs, no tachycardia, no gallops, no rubs Abdomen: Soft, nontender, no organomegaly, bowel sounds present Neuro: No focal deficits grossly, AO x3 Data 01/18/23 23:05 01/18/23 23:05 Other data: Radiology Impressions Chest X-Ray 01/18/23 22:01 IMPRESSION: 1. Hazy left basilar opacity which could be secondary to atelectasis or pneumonia. 2. No evidence of acute injury. 3. Tiny bilateral pleural effusions. Head CT 01/18/23 22:01 IMPRESSION: 1. No evidence of acute injury. 2. Mild parenchymal atrophy and chronic small vessel disease. Hip/Pelvis X-Ray 01/18/23 22:01 IMPRESSION: 1. No fracture. 2. Severe constipation. 3. Severe right hip osteoarthritis. Hip CT 01/18/23 22:40 IMPRESSION: 1. Left iliac wing mildly displaced fracture with extension to the sacroiliac joint. 2. Left inferior pubic ramus fracture along with a suspected left superior pubic ramus fracture near the junction with the acetabulum 3. Comminuted left acetabular fracture involving the anterior, superior and posterior pepper with mild displacement, beam hardening artifact from left hip arthroplasty changes somewhat limits evaluation. 4. Constipation. 5. Severe right hip osteoarthritis. 6. Lumbar spine surgical hardware. Laboratory Results WBC 9.0 10^3/uL (4.0-10.0) 01/18/23 23:05 RBC 2.84 10^6/uL (4.1-5.3) L 01/18/23 23:05 Hgb 10.2 g/dL (11.5-15.3) L 01/18/23 23:05 Hct 32.0 % (37.0-47.0) L 01/18/23 23:05 MCV 112.7 fl (81-99) H 01/18/23 23:05 MCH 35.9 pg (28.0-34.0) H 01/18/23 23:05 MCHC 31.9 g/dL (30.0-36.0) 01/18/23 23:05 RDW 13.6 % (12.1-15.1) 01/18/23 23:05 Plt Count 153 10^3/cmm (130-400) 01/18/23 23:05 MPV 10.8 fL (7.4-10.4) H 01/18/23 23:05 Neut % (Auto) 82.2 % 01/18/23 23:05 Lymph % (Auto) 8.9 % 01/18/23 23:05 Laurel % (Auto) 6.2 % 01/18/23 23:05 Eos % (Auto) 1.4 % 01/18/23 23:05 Baso % (Auto) 0.2 % 01/18/23 23:05 Neut # (Auto) 7.38 10^3/uL (1.8-7.7) 01/18/23 23:05 Lymph # (Auto) 0.8 10^3/uL (0.8-4.8) 01/18/23 23:05 Laurel # (Auto) 0.6 10^3/uL (0.2-0.9) 01/18/23 23:05 Eos # (Auto) 0.1 10^3/uL (0.0-0.8) 01/18/23 23:05 Baso # (Auto) 0.0 10^3/uL (0.0-0.1) 01/18/23 23:05 Nucleated RBC % (auto) 0 % 01/18/23 23:05 Nucleated RBCs # 0.0 /100WBC 01/18/23 23:05 PT 14.10 SECONDS (12.1-14.9) 01/18/23 23:05 INR 1.05 (0.8-1.2) 01/18/23 23:05 Sodium 136 mmol/L (136-145) 01/18/23 23:05 Potassium 3.8 mmol/L (3.5-5.1) 01/18/23 23:05 Chloride 100 mmol/L (98-107) 01/18/23 23:05 Carbon Dioxide 26 mmol/L (22-29) 01/18/23 23:05 Anion Gap 13.8 (5-19) 01/18/23 23:05 BUN 19 mg/dL (8-23) 01/18/23 23:05 Creatinine 2.7 mg/dL (0.5-0.9) H 01/18/23 23:05 GFR Calculation Not Reportable 01/18/23 23: Glucose 94 mg/dL (65-115) 01/18/23 23:05 Calculated Osmolality 284 mOsm/kg (285-295) L 01/18/23 23:05 Calcium 8.9 mg/dL (8.5-10.5) 01/18/23 23:05 Total Bilirubin 0.3 mg/dL (0.15-1.2) 01/18/23 23:05 AST 21 U/L (0-32) 01/18/23 23:05 ALT 15 U/L (0-33) 01/18/23 23:05 Alkaline Phosphatase 96 U/L (35-105) 01/18/23 23:05 Total Protein 6.0 g/dL (6.6-8.7) L 01/18/23 23:05 Albumin 3.1 g/dL (3.5-5.2) L 01/18/23 23:05 Globulin 2.9 g/dL (1.3-4.6) 01/18/23 23:05 A&P Assessment and plan (1) Acetabulum fracture, left: Patient presents after having sustained a fall at assisted living facility resulting in multiple pelvic fractures as specified above in HPI. Case was discussed with orthopedics on-call at [facility] by the ER physician to assess for possible surgery, patient not a candidate given her osteoporosis and medical comorbidities. Recommended medical management for fractures, orthopedics has been consulted, awaiting recommendations Bedrest until activity instructions PT OT assessment As needed Dilaudid for pain management. Continue home dose of hydrocodone APAP (2) Fall: Mechanical fall resulting in fractures as above. History of head injury with th e fall. No loss of consciousness. CT head without evidence of acute injury. (3) ESRD (end stage renal disease): On hemodialysis. Consult nephrology to continue maintenance in the hospital. Continue home dose of Bumex every other day on nondialysis days. 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 Continue dry gauze packing to the wound with an ABD cover as she receives at [facility] per wound care instructions. Patient's home medication review shows she is on cefdinir every other day, I am unsure of the indication at this time, will continue for now until can be clarified. Attestations Medical Necessity Statement*: Greater than 2 midnight admission is anticipated for above defined care Coding Level of Care Code Acute Code for Chg Fwd High MDM includes number and complexity of problems actively addressed during encounter, amount and/or complexity of data reviewed/ordered and described risk of complication, morbidity or mortality of management as documented Diagnoses Acetabulum fracture, left S32.402A Fall W19.XXXA ESRD (end stage renal disease) N18.6
--- NOTE | 2023-01-19 08:07 | PC.PHAR ---
DEANGELO SEGURA FOR MAR AT 8:00 AM
--- NOTE | 2023-01-19 09:36 | P.CONIM_ITS ---
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 Since then she has had left-sided severe hip pain. Discussed with ER transfer to [facility] for possible fixation. 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 this was not operable due to health status and osteoporosis Review of Systems General: Reports: 10 or more systems reviewed and unremarkable except in HPI and below Const: Denies: fever(s), chills or body aches Eyes: Denies: change in vision, blurry vision or photophobia ENMT: Reports: hoarseness; Denies: throat pain, enlarged tonsils, odynophagia or nasal congestion Card: Denies: chest pain, palpitations, irregular heart rhythm, edema, swelling of feet/ankles, lightheadedness, pre-syncope, dyspnea on exertion or orthopnea Resp: Denies: dyspnea, productive cough, non-productive cough, wheezing, stridor, pain on inspiration, change in phlegm color, hemoptysis or chest congestion GI: Denies: abdominal pain, nausea, vomiting, hematemesis, coffee ground emesis, dysphagia, heartburn, diarrhea, constipation, GI cramping, change in stool character, hematochezia or melena : Denies: flank pain, difficulty voiding, dysuria, urinary frequency, urinary urgency, urinary hesitancy or hematuria Musc: Denies: neck pain, back pain, extremity pain, joint swelling, joint warmth or deformity Neuro: Denies: headache(s), numbness in extremities, weakness in extremities, sensory changes, difficulty walking, frequent falls, dizziness, vertigo, behavioral changes, Slurred speech present or seizure-like activity Psych: Denies: anxiety, depression, suicidal ideation or homicidal ideation Endo: Denies: polyuria, polydipsia, tired all the time, cold intolerance or hot flashes Tino/Lymph: Denies: easy bruising or easy bleeding Medications/Allergies Home Medications Medication Instructions Recorded Confirmed Last Taken Type acetaminophen 325 mg tablet 650 mg PO Q4H PRN Pain 11/13/19 01/19/23 03/29/21 History (Tylenol) citalopram 10 mg tablet (Celexa) 10 mg PO DAILY 11/13/19 01/19/23 03/30/21 History ipratropium 0.5 mg-albuterol 3 mg 3 ml inhalation Q4H PRN unknown 11/13/19 01/19/23 Unknown History (2.5 mg base)/3 mL nebulization soln isosorbide mononitrate 30 mg 30 mg PO DAILY 11/13/19 01/19/23 03/30/21 History tablet,extended release 24 hr pantoprazole 40 mg tablet,delayed 40 mg PO BID 11/13/19 01/19/23 03/30/21 History release (Protonix) vitamin B comp no.3-folic acid 1 1 tab PO DAILY 02/25/20 01/19/23 03/30/21 History mg-vit C 60 mg-biotin 300 mcg tablet (Marybel-Eugenio Rx) tamsulosin 0.4 mg capsule (Flomax) 0.4 mg PO DAILY 09/08/20 01/19/23 03/29/21 History calcium acetate(phosphat bind) 667 667 mg PO TID 03/29/21 01/19/23 03/29/21 History mg tablet bisacodyl 10 mg rectal suppository 10 mg AR DAILY PRN constipation 10/10/21 01/19/23 Unknown History cefdinir 300 mg capsule 300 mg PO .QOD Dialysis 10/10/21 01/19/23 Unknown History cholecalciferol (vitamin D3) 25 25 mcg PO DAILY 10/10/21 01/19/23 Unknown History mcg (1,000 unit) capsule (Vitamin D3) elastic bandage 10/10/21 01/19/23 Unknown History elastic bandage 3 10/10/21 01/19/23 Unknown History lidocaine 4 %-menthol 1 % topical 1 patch topical Q4H PRN Bleeding 10/10/21 01/19/23 Unknown History patch (Icy Hot Patch hemorrhoids (lidocaine-menthol)) lidocaine-prilocaine 2.5 %-2.5 % 1 applic topical .COMPLEX 10/10/21 01/19/23 Unknown History topical cream ondansetron HCl 8 mg tablet 8 mg PO TID PRN nausea and vomiting 10/10/21 3 Unknown History promethazine 12.5 mg rectal 12.5 mg AR Q8H PRN nausea and 10/10/21 01/19/23 Unkn own History suppository vomiting simethicone 80 mg chewable tablet 80 mg PO DAILY PRN abdominal 10/10/21 01/19/23 Unknown History (Gas Relief (simethicone)) distention sodium phosphates 19 gram-7 118 ml AR DAILY PRN constipation 10/10/21 01/19/23 Unknown History gram/118 mL enema (Fleet Enema) sorbitol 70 % solution 60 ml PO DAILY PRN constipation 10/10/21 01/19/23 Unknown History witch maia-glycerin (hamamel) 1 pad topical BID PRN hemorrhoids 10/10/21 01/19/23 Unknown History topical pads alprazolam 0.25 mg tablet 0.25 mg PO BID PRN Anxiety 30 days 07/07/22 01/19/23 Unknown Rx #60 tabs carisoprodol 350 mg tablet 350 mg PO BID PRN muscle 07/17/22 01/19/23 Unknown Rx spasticity #60 tabs diphenoxylate-atropine 2.5 1 tab PO QID 30 days #120 tabs 12/22/22 01/19/23 Unknown Rx mg-0.025 mg tablet (Lomotil) hydrocodone 10 mg-acetaminophen 1 tab PO Q4H pain 30 days #180 tabs 12/29/22 01/19/23 Unknown Rx 325 mg tablet bumetanide 1 mg tablet 1 mg PO .COMPLEX 01/18/23 01/19/23 Unknown History carvedilol 12.5 mg tablet 12.5 mg PO BID 01/19/23 01/19/23 Unknown History lactulose 10 gram/15 mL oral 20 g PO BID 01/19/23 01/19/23 Unknown History solution (Constulose) loperamide 2 mg tablet 2 mg PO Q8H PRN Diarrhea 01/19/23 01/19/23 Unknown History (Anti-Diarrheal (loperamide)) oxycodone myristate 18 mg capsule 18 mg PO BID 01/19/23 01/19/23 Unknown History sprinkle extended release 12hr(DON'T CRUSH) (Xtampza ER) polyethylene glycol 3350 17 4 g PO DAILY PRN Constipation 01/19/23 01/19/23 Unknown History gram/dose oral powder promethazine 25 mg tablet 25 mg PO BID PRN Nausea And 01/19/23 01/19/23 Unknown History Vomiting sevelamer carbonate 800 mg tablet 800 mg PO TID 01/19/23 01/19/23 Unknown History simethicone 125 mg capsule See Rx Instructions .Route 01/19/23 01/19/23 Unknown History .COMPLEX PRN GAS Allergies Allergy/AdvReac Type Severity Reaction Status Date / Time amitriptyline [From Elavil] Allergy Unknown Unknown Verified 01/19/23 09:35 cyclobenzaprine Allergy Unknown Unknown Verified 01/19/23 09:35 [From Flexeril] Penicillins Allergy Unknown Unknown Verified 01/19/23 09:35 pentazocine [From Talwin] Allergy Unknown Unknown Verified 01/19/23 09:35 pregabalin [From Lyrica] Allergy Unknown Unknown Verified 01/19/23 09:35 tizanidine Allergy Unknown Unknown Verified 01/19/23 09:35 morphine Allergy Unknown Verified 01/19/23 09:35 sulfamethoxazole AdvReac kidney Verified 01/19/23 09:35 [From Bactrim] trimethoprim [From Bactrim] AdvReac kidney Verified 01/19/23 09:35 Current Medications Generic Name Dose Route Start Last Admin Trade Name Freq PRN Reason Stop Dose Admin Non-Formulary Medication 667 mg 01/19/23 09:00 01/19/23 08:38 Calcium Acetate(Phosphat Bind) PO Not Given TID CONNOR PFSH Acute PFSH: Medical History Anemia of chronic disease Anxiety and depression DDD (degenerative disc disease) Decubitus ulcer, buttock, right, unstageable Diastolic CHF ESRD (end stage renal disease) Fibromyalgia GERD (gastroesophageal reflux disease) History of breast cancer Previously followed by Dr. Santoyo History of pulmonary embolus (PE) 08/2016 History of stroke 11/14/16 Hyperlipidemia Hypertension Incomplete bladder emptying Internal and external bleeding hemorrhoids Lumbar spinal stenosis Osteoarthritis Paroxysmal A-fib Peritoneal dialysis catheter in place Recurrent UTI Restrictive lung disease Urinary retention Surgical History History of back surgery History of esophagogastroduodenoscopy (EGD) 08/03/17 mild gastritis and duodenitis History of hemiarthroplasty of left hip 11/18/18: Dr. Mendoza History of hysterectomy History of lumpectomy of left breast History of right cataract surgery Family History Other Cancer Denies family history of Anesthesia complication Bleeding disorder Social History Second hand smoke exposure: No Alcohol intake: never Substance/Drug Use: never Adopted: No Caregiver/support person: Yes Lives independently: Yes Housing: Assisted Living Facility Marital status: Marital status details: with dementia Additional social history: FULL CODE DISCUSSED WITH PATIENT ON 02/04/20 Vitals/I&O/Wt Last Vital Signs Temp 98.9 F 01/19/23 07:28 Pulse 75 01/19/23 07:29 Resp 16 01/19/23 07:29 BP 139/52 01/19/23 07:28 Pulse Ox 92 01/19/23 07:29 O2 Del Method Room Air 01/19/23 07:29 O2 Flow Rate 2 01/19/23 02:30 01/18/23 01/19/23 01/19/23 22:59 06:59 14:59 Intake Total 240 / 240 Balance 240 / 240 Weight last 48 hrs Weight 112 lb Physical Exam Narrative: Patient is slouched over in bed resting comfortably at this point. Data 01/18/23 23:05 01/18/23 23:05 A&P Assessment and plan (1) Acetabulum fracture, left: Patient has left acetabular fracture with protrusio. Patient has a total hip pain. At this point fracture is unstable however due to patient's health status treatment will be nonoperatively. Treatment will be toe-touch weightbearing. Plan per primary service Coding Level of Care Code Acute Code for [facility] Fwd Diagnoses Acetabulum fracture, left S32.402A
[2023-01-19] MEDS: pantoprazole DR 40 mg Tablet PO ×2 (09:55→17:31)
[2023-01-19] MEDS: cefdinir 300 MG CAPSULE PO (09:55)
[2023-01-19] MEDS: isosorbide mononitrate ER 30 mg Tablet PO (09:55)
[2023-01-19] MEDS: tamsulosin 0.4 mg Capsule PO (09:55)
[2023-01-19] MEDS: citalopram 20 mg Tablet 10 MG PO (09:56)
[2023-01-19] MEDS: HYDROcodone-acetaminophen 10-325 mg Tablet 1 TAB PO ×3 (09:57→20:10)
--- NOTE | 2023-01-19 11:06 | P.CONIM_ITS ---
Providers/Reason For Consult Consulting Physician/Specialty*: kommana/Nephrology Reason for Consult*: ESRD Attending Physician: Neo Liang MD Primary Care Provider: Soren Waters DO History of Present Illness History of Present Illness patient is a 87-year-old female with past medical history of end-stage renal disease on dialysis on Monday schedule, hypertension, history diastolic CHF, anxiety, chronic anemia, paroxysmal atrial fibrillation history of prior PE history of breast cancer osteoporosis. Patient presented to the emergency department after she suffered a fall at home and was found to have comminuted left acetabular fracture on the left. Patient was seen by orthopedics and opted for conservative management due to multiple comorbidities. Patient is on dialysis per [facility] schedule and last dialysis was on Monday and she missed her dialysis yesterday. In the emergency department patient's vital signs are stable, lab data signi ficant for hemoglobin of 10.2, creatinine 2.7. Potassium is 3.8 chest x-ray has showed bilateral small effusions haziness in the left base. Patient does complain of shortness of breath currently and currently on 2 L oxygen by nasal cannula. Review of Systems Narrative: Other review of systems negative except those mentioned in the HPI above Medications/Allergies Home Medications Medication Instructions Recorded Confirmed Last Taken Type acetaminophen 325 mg tablet 650 mg PO Q4H PRN Pain 11/13/19 01/19/23 03/29/21 History (Tylenol) citalopram 10 mg tablet (Celexa) 10 mg PO DAILY 11/13/19 01/19/23 03/30/21 Histo ry ipratropium 0.5 mg-albuterol 3 mg 3 ml inhalation Q4H PRN unknown 11/13/19 01/19/23 Unknown History (2.5 mg base)/3 mL nebulization soln isosorbide mononitrate 30 mg 30 mg PO DAILY 11/13/19 01/19/23 03/30/21 History tablet,extended release 24 hr pantoprazole 40 mg tablet,delayed 40 mg PO BID 11/13/19 01/19/23 03/30/21 History release (Protonix) vitamin B comp no.3-folic acid 1 1 tab PO DAILY 02/25/20 01/19/23 03/30/21 History mg-vit C 60 mg-biotin 300 mcg tablet ([facility]) tamsulosin 0.4 mg capsule (Flomax) 0.4 mg PO DAILY 09/08/20 01/19/23 03/29/21 History calcium acetate(phosphat bind) 667 667 mg PO TID 03/29/21 01/19/23 03/29/21 History mg tablet bisacodyl 10 mg rectal suppository 10 mg NV DAILY PRN constipation 10/10/21 Unknown History cefdinir 300 mg capsule 300 mg PO .QOD Dialysis 10/10/21 01/19/23 Unknown Hi story cholecalciferol (vitamin D3) 25 25 mcg PO DAILY 10/10/21 01/19/23 Unknown History mcg (1,000 unit) capsule (Vitamin D3) elastic bandage 10/10/21 01/19/23 Unknown History elastic bandage 3 10/10/21 01/19/23 Unknown History lidocaine 4 %-menthol 1 % topical 1 patch topical Q4H PRN Bleeding 10/10/21 01/19/23 Unknown History patch (Icy Hot Patch hemorrhoids (lidocaine-menthol)) lidocaine-prilocaine 2.5 %-2.5 % 1 applic topical .COMPLEX 10/10/21 01/19/23 Unknown History topical cream ondansetron HCl 8 mg tablet 8 mg PO TID PRN nausea and vomiting 10/10/21 01/19/23 Unknown History promethazine 12.5 mg rectal 12.5 mg NV Q8H PRN nausea and 10/10/21 01/19/23 Unknown History suppository vomiting simethicone 80 mg chewable tablet 80 mg PO DAILY PRN abdominal 10/10/21 01/19/23 Unknown History (Gas Relief (simethicone)) distention sodium phosphates 19 gram-7 118 ml NV DAILY PRN constipation 10/10/21 01/19/23 Unknown History gram/118 mL enema (Fleet Enema) sorbitol 70 % solution 60 ml PO DAILY PRN constipation 10/10/21 01/19/23 Unknown History witch maia-glycerin (hamamel) 1 pad topical BID PRN hemorrhoids 10/10/21 0709/29 Unknown History topical pads alprazolam 0.25 mg tablet 0.25 mg PO BID PRN Anxiety 30 days 07/07/22 01/19/23 Unknown Rx #60 tabs carisoprodol 350 mg tablet 350 mg PO BID PRN muscle 07/17/22 01/19/23 Unknown Rx spasticity #60 tabs diphenoxylate-atropine 2.5 1 tab PO QID 30 days #120 tabs 12/22/22 01/19/23 Unknown Rx mg-0.025 mg tablet (Lomotil) hydrocodone 10 mg-acetaminophen 1 tab PO Q4H pain 30 days #180 tabs 12/29/22 01/19/23 Unknown Rx 325 mg tablet bumetanide 1 mg tablet 1 mg PO .COMPLEX 01/18/23 01/19/23 Unknown History carvedilol 12.5 mg tablet 12.5 mg PO BID 01/19/23 01/19/23 Unknown History lactulose 10 gram/15 mL oral 20 g PO BID 01/19/23 01/19/23 Unknown History solution (Constulose) loperamide 2 mg tablet 2 mg PO Q8H PRN Diarrhea 01/19/23 01/19/23 Unknown History (Anti-Diarrheal (loperamide)) oxycodone myristate 18 mg capsule 18 mg PO BID 01/19/23 01/19/23 Unknown History sprinkle extended release 12hr(DON'T CRUSH) (Xtampza ER) polyethylene glycol 3350 17 4 g PO DAILY PRN Constipation 01/19/23 01/19/23 Unknown History gram/dose oral powder promethazine 25 mg tablet 25 mg PO BID PRN Nausea And 01/19/23 01/19/23 Unknown History Vomiting sevelamer carbonate 800 mg tablet 800 mg PO TID 01/19/23 01/19/23 Unknown History simethicone 125 mg capsule See Rx Instructions .Route 01/19/23 01/19/23 Unknown History .COMPLEX PRN GAS Allergies Allergy/AdvReac Type Severity Reaction Status Date / Time amitriptyline [From Elavil] Allergy Unknown Unknown Verified 01/19/23 09:35 cyclobenzaprine Allergy Unknown Unknown Verified 01/19/23 09:35 [From Flexeril] Penicillins Allergy Unknown Unknown Verified 01/19/23 09:35 pentazocine [From Talwin] Allergy Unknown Unknown Verified 01/19/23 09:35 pregabalin [From Lyrica] Allergy Unknown Unknown Verified 01/19/23 09:35 tizanidine Allergy Unknown Unknown Verified 01/19/23 09:35 morphine Allergy Unknown Verified 01/19/23 09:35 sulfamethoxazole AdvReac kidney Verified 01/19/23 09:35 [From Bactrim] trimethoprim [From Bactrim] AdvReac kidney Verified 01/19/23 09:35 Current Medications Generic Name Dose Route Start Last Admin Trade Name Freq PRN Reason Stop Dose Admin Hydrocodone Bitart/Acetaminophen 1 tab 01/19/23 07:03 01/19/23 09:57 Hydrocodone-Acetaminophen 10-325 Mg Tablet PO 1 tab Q4H PRN Administration PAIN Cefdinir 300 mg 01/19/23 10:00 01/19/23 09:55 Cefdinir 300 Mg Capsule PO 300 mg EVERY OTHER DAY [facility] Administration Protocol Citalopram Hydrobromide 10 mg 01/19/23 09:00 01/19/23 09:56 Citalopram 20 Mg Tablet PO 10 mg DAILY [facility] Administration Diphenoxylate HCl/Atropine 1 tab 01/19/23 09:00 01/19/23 10:59 Diphenoxylate/Atropine Tablet PO Not Given QID [facility] Heparin Sodium (Porcine) 5,000 unit 01/19/23 07:00 01/19/23 09:00 Heparin 5,000 Unit/Ml Inj 1 Ml SUBCUT Not Given Q12H [facility] Isosorbide Mononitrate 30 mg 01/19/23 09:00 01/19/23 09:55 Isosorbide Mononitrate Er 30 Mg Tablet PO 30 mg DAILY [facility] Administration Non-Formulary Medication 667 mg 01/19/23 09:00 01/19/23 08:38 Calcium Acetate(Phosphat Bind) PO Not Given TID [facility] Tamsulosin HCl 0.4 mg 01/19/23 09:00 01/19/23 09:55 Tamsulosin 0.4 Mg Capsule PO 0.4 mg DAILY [facility] Administration PFSH Acute PFSH: Medical History Anemia of chronic disease Anxiety and depression DDD (degenerative disc disease) Decubitus ulcer, buttock, right, unstageable Diastolic CHF ESRD (end stage renal disease) Fibromyalgia GERD (gastroesophageal reflux disease) History of breast cancer Previously followed by Dr. Santoyo History of pulmonary embolus (PE) 08/2016 History of stroke 11/14/16 Hyperlipidemia Hypertension Incomplete bladder emptying Internal and external bleeding hemorrhoids Lumbar spinal stenosis Osteoarthritis Paroxysmal A-fib Peritoneal dialysis catheter in place Recurrent UTI Restrictive lung disease Urinary retention Surgical History History of back surgery History of esophagogastroduodenoscopy (EGD) 08/03/17 mild gastritis and duodenitis History of hemiarthroplasty of left hip 11/18/18: Dr. Mendoza History of hysterectomy History of lumpectomy of left breast History of right cataract surgery Family History Other Cancer Denies family history of Anesthesia complication Bleeding disorder Social History Second hand smoke exposure: No Alcohol intake: never Substance/Drug Use: never Adopted: No Caregiver/support person: Yes Lives independently: Yes Housing: Assisted Living Facility Marital status: Marital status details: with dementia Additional social history: FULL CODE DISCUSSED WITH PATIENT ON 02/04/20 Vitals/I&O/Wt Last Vital Signs Temp 98.9 F 01/19/23 07:28 Pulse 75 01/19/23 07:29 Resp 16 01/19/23 07:29 BP 139/52 01/19/23 07:28 Pulse Ox 92 01/19/23 07:29 O2 Del Method Room Air 01/19/23 07:29 O2 Flow Rate 2 01/19/23 02:30 01/18/23 01/19/23 01/19/23 22:59 06:59 14:59 Intake Total 240 / 240 Balance 240 / 240 Weight last 48 hrs Weight 50.802 kg Physical Exam Narrative: Patient alert no acute distress, on 2 L oxygen by nasal cannula S1-S2 regular rate and rhythm per report Lungs clear per report No pedal edema Data 01/18/23 23:05 01/18/23 23:05 A&P Assessment and plan (1) ESRD (end stage renal disease): 1. End-stage renal disease: Patient on MWF schedule as outpatient, missed HD on Monday. We will plan on ultrafiltration today due to electrolytes being stable. We will run 2 and half hours and 2 L ultrafiltration if tolerated. We will do full HD tomorrow so patient is back on her regular MWF schedule 2. Hypertension: Blood pressure controlled, restart home medications 3. Anemia: Hemoglobin 10.2, monitor we will give МАРИНА if it drops below 10 4. Status post fall and hip fracture: Seen by orthopedics and conservative management currently Consult Attestations Medical Necessity Statement: per medicine Coding Level of Care Code Acute Code for [facility] Fwd Diagnoses ESRD (end stage renal disease) N18.6
[2023-01-19 11:55] LABS: Hepatitis B Surface AB 150.1 (11.5-1000); Hepatitis B Surface Antigen Non-Reactive (Nonreactive)
[2023-01-19 11:58] LABS: Thyroid Stimulating Hormone 2.64 uIU/mL (0.27-4.20)
[2023-01-19 12:07] LABS: Iron 100 ug/dL (37-145); Percent Saturation 79.3 % (20-50); Total Iron Binding Capacity 126 mcg/dl; Unsaturated Iron Binding 26 ug/dL (112-347); Vitamin B12 648 pg/mL (232-1245)
[2023-01-19] MEDS: lactulose oral liq 20 gm/30 mL UDC PO (17:30)
[2023-01-19] MEDS: diphenoxylate/atropine Tablet 1 TAB PO ×2 (17:30→20:10)
[2023-01-19] MEDS: sevelamer 800 mg Tablet PO (17:31)
[2023-01-19] MEDS: heparin 5,000 unit/mL INJ 1 mL 5000 UNIT SUBCUT (19:55)
--- NOTE | 2023-01-19 21:43 | PC.NURSE ---
At approximately 2137 Ms. Thomas's daughter had called the nurses station to inform nursing staff that her mother just called her confused. Daughter says she doesn't know why but patient seems to get this way every now and then. The daughter of patient had asked for nursing staff to just go check on patient and reassure her where she is at. I the aid who also answered the phone and spoke to the daughter on the line then immediately went to check on the patient after ending the call with the daughter. After walking into patients room to assess the situation the patient told the aid she is going to have to call her family to help get her out of here. The patient does not remember who I am or me coming in her room to take her vital signs between [id number]. LIQUOR GRINDING MILL OPERATOR asked the patient where she was, the patient replied [place] [facility] [place] and broke her hip. She said she was sent over here for 3 days of physical therapy over a broken hip but instead had gotten into the bed and currently realizing she is not where she assumed to have been at when gotten into the bed. Patient told aid its like being kidnapped and held hostage to be taken out of state ! LIQUOR GRINDING MILL OPERATOR tried to reassure patient she was in the hospital and we are here to take care of her until she is able to go to a residential facility for physical therapy. Patient kept saying she's never felt this way before, its just absolutely terrible and she would like to speak to a charge nurse and nurse about whats going on. LIQUOR GRINDING MILL OPERATOR said I will go let your nurse know you would like to speak to her about your care, meanwhile is there anything I can do for you . Patient kept denying CNAs help and just wanted to speak to her nurse. Patients nurse was notified of the situation and went into the patients room to talk with her. After the patients nurse tried to speak with her, she went to get the charge nurse and the charge nurse went into the patients room to speak to patient. LIQUOR GRINDING M[employer] OPERATOR set patients bed alarm as a fall precaution and call light was placed in patients hand and shown the red button on the call light several times following up with this is your call button, please hit this red button if you need someone to come in here . Patient verbalized understanding of call light use.
[2023-01-20] VITALS (10 sets, daily range): BP systolic 120–146; BP diastolic 43–61; PULSE 62–80; RESP 14–18; TEMP 36.6–37; O2SAT 90–99
[2023-01-20] MEDS: ALPRAZolam 0.5 mg Tablet 0.25 MG PO (00:10)
[2023-01-20 04:31] LABS: Basophils % 0.5 %; Eosinophils # 0.1 10^3/uL (0.0-0.8); Eosinophils % 0.9 %; Hematocrit 32.4 % (37.0-47.0); Hemoglobin 10.4 g/dL (11.5-15.3); Lymphocytes % 15.9 %; Mean Corpuscular HGB Conc 32.1 g/dL (30.0-36.0); Mean Corpuscular Hemoglobin 36.5 pg (28.0-34.0); Mean Corpuscular Volume 113.7 fl (81-99); Mean Platelet Volume 10.5 fL (7.4-10.4); Monocytes # 0.6 10^3/uL (0.2-0.9); Monocytes % 8.6 %; Neutrophils # 4.72 10^3/uL (1.8-7.7); Neutrophils % 73.8 %; Nucleated Red Blood Cells % 0 %; Platelet Count 144 10^3/cmm (130-400); Red Blood Count 2.85 10^6/uL (4.1-5.3); Red Cell Distribution Width 13.9 % (12.1-15.1); White Blood Count 6.4 10^3/uL (4.0-10.0)
[2023-01-20 04:59] LABS: Alanine Aminotransferase 13 U/L (0-33); Albumin Level 2.8 g/dL (3.5-5.2); Alkaline Phosphatase 83 U/L (35-105); Aspartate Amino Transferase 16 U/L (0-32); Blood Urea Nitrogen 37 mg/dL (8-23); Calcium 9.1 mg/dL (8.5-10.5); Carbon Dioxide 27 mmol/L (22-29); Chloride 100 mmol/L (98-107); Globulin 2.8 g/dL (1.3-4.6); Glucose 90 mg/dL (65-115); Osmolality Calculated 294 mOsm/kg (285-295); Sodium 138 mmol/L (136-145); Total Bilirubin 0.3 mg/dL (0.15-1.2); Total Protein 5.6 g/dL (6.6-8.7)
[2023-01-20 05:00] LABS: Chol HDL Ratio 1.57 mg/dL (0.0-4.40); Cholesterol 116 mg/dL (0-200); Estmated Average Glucose 85; HDL Cholesterol 74 mg/dL (60-100); Hemoglobin A1C 4.6 % (4.0-6.0); LDL Cholesterol Calculated 31 mg/dL (50-129); Triglycerides 53 mg/dL (0-150); VLDL Cholestrol Calculation 11 mg/dL (0-30)
[2023-01-20 05:01] LABS: Anion Gap 15.4 (5-19); Potassium 4.4 mmol/L (3.5-5.1)
[2023-01-20] MEDS: heparin 5,000 unit/mL INJ 1 mL 5000 UNIT SUBCUT ×2 (05:59→19:12)
[2023-01-20] MEDS: diphenoxylate/atropine Tablet 1 TAB PO ×3 (08:39→21:03)
[2023-01-20] MEDS: isosorbide mononitrate ER 30 mg Tablet PO (08:39)
[2023-01-20] MEDS: b-complex-vitamin c Tablet 1 EACH PO (08:39)
[2023-01-20] MEDS: citalopram 20 mg Tablet 10 MG PO (08:40)
[2023-01-20] MEDS: pantoprazole DR 40 mg Tablet PO ×2 (08:43→17:24)
[2023-01-20] MEDS: HYDROcodone-acetaminophen 10-325 mg Tablet 1 TAB PO ×3 (08:43→17:24)
[2023-01-20] MEDS: sevelamer 800 mg Tablet PO ×3 (08:50→17:36)
[2023-01-20] MEDS: tamsulosin 0.4 mg Capsule PO (08:50)
[2023-01-20] MEDS: HYDROmorphone 1 mg/mL INJ 1 mL 0.5 MG IVP (10:24)
--- NOTE | 2023-01-20 12:54 | PM.PN ---
Subjective Subjective: pt sleeping getting hD leg pain BP drops while on HD Medications: Reviewed: Yes Vitals/I&O/Wt Last Vital Signs Temp 97.8 F 01/20/23 07:33 Pulse 69 01/20/23 07:33 Resp 16 01/20/23 07:33 BP 136/51 01/20/23 07:33 Pulse Ox 93 01/20/23 08:34 O2 Del Method Nasal Cannula 01/20/23 08:34 O2 Flow Rate 2 01/20/23 08:34 01/19/23 01/20/23 01/20/23 22:59 06:59 14:59 Intake Total 740 / 1460 0 / 0 Output Total 2435 / 2435 Balance -1695 / -975 0 / 0 Weight last 48 hrs Weight 48.8 kg Weight 50.802 kg Physical Exam Narrative: Patient alert no acute distress, on 2 L oxygen by nasal cannula S1-S2 regular rate and rhythm per report Lungs clear per report No pedal edema Data 01/20/23 04:10 01/20/23 04:10 A&P Assessment and plan (1) ESRD (end stage renal disease): 1. End-stage renal disease: Patient on MWF schedule as outpatient, missed HD on Monday. Status post ultrafiltration yesterday and HD today 2. Hypertension: Blood pressure controlled, restart home medications 3. Anemia: Hemoglobin 10.4, monitor we will give МАРИНА if it drops below 10 4. Status post fall and hip fracture: Seen by orthopedics and conservative management currently Attestations Medical Necessity Statement*: PER MEDICINE Coding Level of Care Code Acute Code for [facility] Fwd Diagnoses ESRD (end stage renal disease) N18.6
--- NOTE | 2023-01-20 14:27 | PM.PN ---
Subjective Subjective: No acute events overnight. Patient today morning seen getting dialysis with family at bedside. Patient complaining of pain in the hip. Denies any nausea vomiting, headache. Tolerating dialysis well. Has received 2 doses of IV Dilaudid since admission along with oral home dose of oxy. Medications: Reviewed: Yes Vitals/I&O/Wt Last Vital Signs Temp 97.8 F 01/20/23 07:33 Pulse 69 01/20/23 07:33 Resp 16 01/20/23 07:33 BP 136/51 01/20/23 07:33 Pulse Ox 93 01/20/23 08:34 O2 Del Method Nasal Cannula 01/20/23 08:34 O2 Flow Rate 2 01/20/23 08:34 01/19/23 01/20/23 01/20/23 22:59 06:59 14:59 Intake Total 740 / 1460 0 / 0 Output Total 2435 / 2435 Balance -1695 / -975 0 / 0 Weight last 48 hrs Weight 48.8 kg Weight 50.802 kg Physical Exam Narrative: General: No acute distress, AO x3 HEENT: PERRLA, pupils bilaterally equal and reactive, pallors not present Chest: Normal vesicular breath sounds, no added sounds, equal good air entry bilaterally CVS: S1-S2 regular, no murmurs, no tachycardia, no gallops, no rubs Abdomen: Soft, nontender, no organomegaly, bowel sounds present Neuro: No focal deficits grossly, AO x3 Data 01/20/23 04:10 01/20/23 04:10 A&P Assessment and plan (1) Acetabulum fracture, left: Appreciate orthopedic recommendation. Toe-touch weightbearing. Recommend pain management and physical therapy. Continue with Dilaudid 0.5 every 6 hours as needed along with [place] 10 mg every 4 hours as needed. Cannot use Flexeril as patient is allergic. (2) Fall: Mechanical fall resulting in fractures as above. History of head injury with the fall. No loss of consciousness. CT head without evidence of acute injury. (3) ESRD (end stage renal disease): On hemodialysis. Nephrology recommendations appreciated. Continue with home sessions of dialysis. 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 Continue dry gauze packing to the wound with an ABD cover as she receives at [facility] per wound care instructions. Patient's home medication review shows she is on cefdinir every other day, I am unsure of the indication at this time, will continue for now until can be clarified. Full code. Renal dialysis diet. Heparin 5000 every 12 hourly for DVT prophylaxis. Discharge plan: Patient will need placement to SNF as she requires pain management and rehabitation for acetabular fracture. Has been accepted at [facility]. Attestations Medical Necessity Statement*: Requires further hospitalization for management of acetabular fracture as patient requiring IV pain medications while safe discharge planning is sought. Diagnoses Acetabulum fracture, left S32.402A Fall W19.XXXA ESRD (end stage renal disease) N18.6
[2023-01-20] MEDS: lactulose oral liq 20 gm/30 mL UDC PO (17:24)
[2023-01-21] VITALS (9 sets, daily range): BP systolic 110–143; BP diastolic 43–64; PULSE 59–69; RESP 15–16; TEMP 36.4–37.3; O2SAT 90–99
[2023-01-21] MEDS: ALPRAZolam 0.5 mg Tablet 0.25 MG PO ×2 (02:19→20:58)
[2023-01-21] MEDS: HYDROcodone-acetaminophen 10-325 mg Tablet 1 TAB PO ×3 (02:19→15:43)
[2023-01-21] MEDS: heparin 5,000 unit/mL INJ 1 mL 5000 UNIT SUBCUT ×2 (06:43→18:05)
[2023-01-21] MEDS: bumetanide 1 mg Tablet PO (08:50)
[2023-01-21] MEDS: sevelamer 800 mg Tablet PO ×3 (08:50→18:05)
[2023-01-21] MEDS: tamsulosin 0.4 mg Capsule PO (08:51)
[2023-01-21] MEDS: pantoprazole DR 40 mg Tablet PO ×2 (08:51→18:05)
[2023-01-21] MEDS: citalopram 20 mg Tablet 10 MG PO (08:51)
[2023-01-21] MEDS: diphenoxylate/atropine Tablet 1 TAB PO ×2 (08:51→20:58)
[2023-01-21] MEDS: cefdinir 300 MG CAPSULE PO (08:51)
[2023-01-21] MEDS: isosorbide mononitrate ER 30 mg Tablet PO (08:51)
[2023-01-21] MEDS: b-complex-vitamin c Tablet 1 EACH PO (08:51)
[2023-01-21] MEDS: HYDROmorphone 1 mg/mL INJ 1 mL 0.5 MG IVP ×2 (12:02→16:10)
--- NOTE | 2023-01-21 13:52 | P.PN_ITS ---
Subjective Subjective: Patient reports the pain is severe at times. Stroke chronic analgesics. Otherwise denies any new complaints. Denies fevers, chills, nausea or emesis. Tolerating dialysis well. Vitals/I&O/Wt Last Vital Signs Temp 99.1 F 01/21/23 12:00 Pulse 64 01/21/23 12:00 Resp 16 01/21/23 12:02 BP 128/43 01/21/23 12:00 Pulse Ox 96 01/21/23 12:00 O2 Del Method Room Air 01/21/23 03:44 O2 Flow Rate 2 01/21/23 08:00 01/20/23 01/21/23 01/21/23 22:59 06:59 14:59 Intake Total 800 / 800 60 / 860 Output Total 1967 Balance -1168 / -1168 60 / -1108 Weight last 48 hrs Weight 48.6 kg Weight 48.8 kg Physical Exam Narrative: General: Patient is awake and alert. Frail-appearing. Pleasant. Head: Normocephalic. Atraumatic. EOM intact. Neck: No JVD. Cardiovascular: RRR. No gallops. No murmurs. Lungs: Clear to auscultation, no use of accessory muscles, no crackles or wheezes. Skin: No jaundice. No rashes. Abdomen: Normal bowel sounds, abdomen soft and nontender. Genito Urinary: Genital exam not performed since complaints not related. Rectal: Rectal exam not performed since no symptoms indicated blood loss. Extremities: No cyanosis or clubbing. Kyphotic. Neurological: Moves all 4 extremities. No myoclonus. Data 01/20/23 04:10 01/20/23 04:10 A&P Assessment and plan (1) Acetabulum fracture, left: Appreciate orthopedic recommendations Toe-touch weightbearing Continue therapy Analgesics as needed We will need postacute care when ready (2) Fall: Fall precautions (3) ESRD (end stage renal disease): Nephrology following, managing dialysis Plan DVT prophylaxis: Heparin CODE STATUS: Full code Attestations Medical Necessity Statement*: Patient requires ongoing hospitalization for supportive care, therapy, and IV analgesics. Coding Level of Care Code Acute Code for [facility] Diagnoses Acetabulum fracture, left S32.402A Fall W19.XXXA ESRD (end stage renal disease) N18.6
--- NOTE | 2023-01-21 19:58 | PM.PN ---
Subjective Subjective: no new complaints Medications: Reviewed: Yes Vitals/I&O/Wt Last Vital Signs Temp 97.7 F 01/21/23 15:44 Pulse 61 01/21/23 15:44 Resp 16 01/21/23 16:10 BP 110/64 01/21/23 15:44 Pulse Ox 99 01/21/23 15:44 O2 Del Method Room Air 01/21/23 03:44 O2 Flow Rate 2 01/21/23 08:00 01/21/23 01/21/23 01/21/23 06:59 14:59 22:59 Intake Total 60 / 860 Balance 60 / -1108 Weight last 48 hrs Weight 48.6 kg Weight 48.8 kg Physical Exam Narrative: Patient alert no acute distress, on 2 L oxygen by nasal cannula S1-S2 regular rate and rhythm per report Lungs clear per report No pedal edema Data 01/20/23 04:10 01/20/23 04:10 A&P Assessment and plan (1) ESRD (end stage renal disease): 1. End-stage renal disease: Patient on MWF schedule as outpatient, Next HD Monday 2. Hypertension: Blood pressure controlled, restart home medications 3. Anemia: Hemoglobin 10.4, monitor we will give МАРИНА if it drops below 10 4. Status post fall and hip fracture: Seen by orthopedics and conservative management currently Attestations Medical Necessity Statement*: per medicine Coding Level of Care Code Acute Code for [facility] Fwd Diagnoses ESRD (end stage renal disease) N18.6
[2023-01-22] VITALS (9 sets, daily range): BP systolic 93–150; BP diastolic 42–66; PULSE 57–75; RESP 15–18; TEMP 36.4–36.8; O2SAT 97–98
[2023-01-22] MEDS: HYDROcodone-acetaminophen 10-325 mg Tablet 1 TAB PO ×3 (06:22→18:30)
[2023-01-22] MEDS: heparin 5,000 unit/mL INJ 1 mL 5000 UNIT SUBCUT (06:22)
[2023-01-22] MEDS: sevelamer 800 mg Tablet PO ×2 (08:14→12:28)
[2023-01-22] MEDS: pantoprazole DR 40 mg Tablet PO (08:14)
[2023-01-22] MEDS: sennosides-docusate Tablet 2 TAB PO (08:14)
[2023-01-22] MEDS: citalopram 20 mg Tablet 10 MG PO (08:14)
[2023-01-22] MEDS: b-complex-vitamin c Tablet 1 EACH PO (08:14)
[2023-01-22] MEDS: isosorbide mononitrate ER 30 mg Tablet PO (08:14)
[2023-01-22] MEDS: tamsulosin 0.4 mg Capsule PO (08:15)
--- NOTE | 2023-01-22 09:31 | PM.PN ---
Subjective Subjective: no new complains Medications: Reviewed: Yes Vitals/I&O/Wt Last Vital Signs Temp 98.3 F 01/22/23 07:42 Pulse 61 01/22/23 07:42 Resp 16 01/22/23 07:42 BP 111/56 01/22/23 07:42 Pulse Ox 98 01/22/23 07:42 O2 Del Method Nasal Cannula 01/22/23 07:42 O2 Flow Rate 2 01/22/23 08:00 01/21/23 01/22/23 01/22/23 22:59 06:59 14:59 Intake Total 240 / 240 Balance 240 / 240 Weight last 48 hrs Weight 48.6 kg Physical Exam Narrative: Patient alert no acute distress, on 2 L oxygen by nasal cannula S1-S2 regular rate and rhythm per report Lungs clear per report No pedal edema Data 01/20/23 04:10 01/20/23 04:10 A&P Assessment and plan (1) ESRD (end stage renal disease): 1. End-stage renal disease: Patient on MWF schedule as outpatient, Next HD Monday 2. Hypertension: Blood pressure controlled, restart home medications 3. Anemia: Hemoglobin 10.4, monitor we will give МАРИНА if it drops below 10 4. Status post fall and hip fracture: Seen by orthopedics and conservative management currently, await rehab placement Attestations Medical Necessity Statement*: per medicine Coding Level of Care Code Acute Code for [facility] Fwd Diagnoses ESRD (end stage renal disease) N18.6
--- NOTE | 2023-01-22 13:13 | PM.DCS ---
Discharge Providers Date of Admission: 01/19/23 02:11 Date of Discharge: January 22, 2023 Attending Provider at Admission: Mansi Fernandez MD Attending Provider at Discharge: Jorge Pete MD Consults: Orthopedics Nephrology Primary Care Provider: Soren Waters DO Diagnoses at Discharge Discharge Diagnosis (1) ESRD (end stage renal disease): Status: Acute Reason for Visit Reason for Visit: FALL Hospital Course Hospital Course Milla Thomas is an 87-year-old female with a past medical history significant for end-stage renal disease on dialysis, chronic respiratory failure, osteoarthritis, hypertension, anemia, fibromyalgia, and diastolic congestive heart failure who presented with mechanical fall, found to have left acetabular fracture. Orthopedic surgery was consulted. Recommendation was for patient to be treated nonoperatively due to patient's health status. She is to be toe-touch weightbearing. Nephrology was consulted to manage dialysis. Patient was discharged to shelter facility for further care. Physical Exam Narrative: General: Patient is awake and alert.? Frail-appearing.? Head:? Normocephalic. Atraumatic. EOM intact. Neck: No JVD. Cardiovascular: RRR. No gallops. No murmurs. Lungs: Clear to auscultation, no use of accessory muscles, no crackles or wheezes. Skin: No jaundice. No rashes. Abdomen: Normal bowel sounds, abdomen soft and nontender. Genito Urinary: Genital exam not performed since complaints not related. Rectal: Rectal exam not performed since no symptoms indicated blood loss. Extremities: No cyanosis or clubbing.? Kyphotic. Neurological: Moves all 4 extremities. No myoclonus. Discharge Data Studies Completed and Pending Completed Studies During Hospitalization Category Date Time Status CT head wo con* [id number] Stat Cat Scan 01/18/23 22:[address] hip LT wo con* [id number] Stat Cat Scan 01/18/23 22:40 Completed XR chest 1V portable [id number] Stat Exams 01/18/23 22:01 Completed XR hip LT 2-3V wo/w pel* [id number] Stat Exams 01/18/23 22:01 Completed Pending at discharge Category Date Time Status CBC Auto Diff [Complete Blood Count w/Auto] Routine Lab 01/22/23 10:06 Ordered CMP [Comprehensive Metabolic Panel] Routine Lab 01/22/23 10:06 Ordered Radiology Impressions Chest X-Ray 01/18/23 22:01 IMPRESSION: 1. Hazy left basilar opacity which could be secondary to atelectasis or pneumonia. 2. No evidence of acute injury. 3. Tiny bilateral pleural effusions. Head CT 01/18/23 22:01 IMPRESSION: 1. No evidence of acute injury. 2. Mild parenchymal atrophy and chronic small vessel disease. Hip/Pelvis X-Ray 01/18/23 22:01 IMPRESSION: 1. No fracture. 2. Severe constipation. 3. Severe right hip osteoarthritis. Hip CT 01/18/23 22:40 IMPRESSION: 1. Left iliac wing mildly displaced fracture with extension to the sacroiliac joint. 2. Left inferior pubic ramus fracture along with a suspected left superior pubic ramus fracture near the junction with the acetabulum 3. Comminuted left acetabular fracture involving the anterior, superior and posterior pepper with mild displacement, beam hardening artifact from left hip arthroplasty changes somewhat limits evaluation. 4. Constipation. 5. Severe right hip osteoarthritis. 6. Lumbar spine surgical hardware. Laboratory Results WBC 6.4 10^3/uL (4.0-10.0) 01/20/23 04:10 RBC 2.85 10^6/uL (4.1-5.3) L 01/20/23 04:10 Hgb 10.4 g/dL (11.5-15.3) L 01/20/23 04:10 Hct 32.4 % (37.0-47.0) L 01/20/23 04:10 MCV 113.7 fl (81-99) H 01/20/23 04:10 MCH 36.5 pg (28.0-34.0) H 01/20/23 04:10 MCHC 32.1 g/dL (30.0-36.0) 01/20/23 04:10 RDW 13.9 % (12.1-15.1) 01/20/23 04:10 Plt Count 144 10^3/cmm (130-400) 01/20/23 04:10 MPV 10.5 fL (7.4-10.4) H 01/20/23 04:10 Neut % (Auto) 73.8 % 01/20/23 04:10 Lymph % (Auto) 15.9 % 01/20/23 04:10 [place] % (Auto) 8.6 % 01/20/23 04:10 Eos % (Auto) 0.9 % 01/20/23 04:10 Baso % (Auto) 0.5 % 01/20/23 04:10 Neut # (Auto) 4.72 10^3/uL (1.8-7.7) 01/20/23 04:10 Lymph # (Auto) 1.0 10^3/uL (0.8-4.8) 01/20/23 04:10 [place] # (Auto) 0.6 10^3/uL (0.2-0.9) 01/20/23 04:10 Eos # (Auto) 0.1 10^3/uL (0.0-0.8) 01/20/23 04:10 Baso # (Auto) 0.0 10^3/uL (0.0-0.1) 01/20/23 04:10 Nucleated RBC % (auto) 0 % 01/20/23 04:10 Nucleated RBCs # 0.0 /100WBC 01/20/23 04:10 PT 14.10 SECONDS (12.1-14.9) 01/18/23 23:05 INR 1.05 (0.8-1.2) 01/18/23 23:05 Sodium 138 mmol/L (136-145) 01/20/23 04:10 Potassium 4.4 mmol/L (3.5-5.1) 01/20/23 04:10 Chloride 100 mmol/L (98-107) 01/20/23 04:10 Carbon Dioxide 27 mmol/L (22-29) 01/20/23 04:10 Anion Gap 15.4 (5-19) 01/20/23 04:10 BUN 37 mg/dL (8-23) H 01/20/23 04:10 Creatinine 4.4 mg/dL (0.5-0.9) H 01/20/23 04:10 GFR Calculation Not Reportable 01/20/23 04:10 Glucose 90 mg/dL (65-115) 01/20/23 04:10 Estimat Average Glucose 85 01/20/23 04:10 Hemoglobin A1c 4.6 % (4.0-6.0) 01/20/23 04:10 Calculated Osmolality 294 mOsm/kg (285-295) 01/20/23 04:10 Calcium 9.1 mg/dL (8.5-10.5) 01/20/23 04:10 Iron 100 ug/dL (37-145) 01/18/23 23:05 TIBC 126 mcg/dl 01/18/23 23:05 % Saturation 79.3 % (20-50) H 01/18/23 23:05 Unsat Iron Binding 26 ug/dL (112-347) L 01/18/23 23:05 Total Bilirubin 0.3 mg/dL (0.15-1.2) 01/20/23 04:10 AST 16 U/L (0-32) 01/20/23 04:10 ALT 13 U/L (0-33) 01/20/23 04:10 Alkaline Phosphatase 83 U/L (35-105) 01/20/23 04:10 Total Protein 5.6 g/dL (6.6-8.7) L 01/20/23 04:10 Albumin 2.8 g/dL (3.5-5.2) L 01/20/23 04:10 Globulin 2.8 g/dL (1.3-4.6) 01/20/23 04:10 Triglycerides 53 mg/dL (0-150) 01/20/23 04:10 Cholesterol 116 mg/dL (0-200) 01/20/23 04:10 LDL Cholesterol, Calc 31 mg/dL (50-129) L 01/20/23 04:10 Total VLDL Cholesterol 11 mg/dL (0-30) 01/20/23 04:10 HDL Cholesterol 74 mg/dL (60-100) 01/20/23 04:10 Cholesterol/HDL Ratio 1.57 mg/dL (0.0-4.40) 01/20/23 04:10 Vitamin B12 648 pg/mL (232-1245) 01/18/23 23:05 Folate 20.0 ng/mL (4.8-37.3) 01/20/23 04:10 TSH 2.64 uIU/mL (0.27-4.20) 01/18/23 23:05 Hep Bs Antigen Non-reactive (Nonreactive) 01/18/23 23:05 Hep Bs Antibody 150.1 (11.5-1000) 01/18/23 23:05 Vitals Last Vital Signs Temp 98.2 F 01/22/23 12:00 Pulse 66 01/22/23 12:00 Resp 15 01/22/23 12:00 BP 129/50 01/22/23 12:00 Pulse Ox 97 01/22/23 12:00 O2 Del Method Room Air, Nasal Cannula 01/22/23 12:00 O2 Flow Rate 2 01/22/23 08:00 Discharge Plan Discharge Patient Disposition: Xfer SNF Condition: Stable Prescriptions: Continued pantoprazole [Protonix] 40 mg tablet,delayed release (DR/EC) 40 mg PO BID acetaminophen [Tylenol] 325 mg tablet 650 mg PO Q4H PRN (Reason: Pain) ipratropium-albuterol 0.5 mg-3 mg(2.5 mg base)/3 mL solution for nebulization 3 ml INHALATION Q4H PRN (Reason: unknown) citalopram [Celexa] 10 mg tablet 10 mg PO DAILY isosorbide mononitrate 30 mg tablet extended release 24 hr 30 mg PO DAILY simethicone [Gas Relief (simethicone)] 80 mg tablet,chewable 80 mg PO DAILY PRN (Reason: abdominal distention) bisacodyl 10 mg suppository 10 mg [place] DAILY PRN (Reason: constipation) Fleet Enema 19-7 gram/118 mL enema 118 ml [place] DAILY PRN (Reason: constipation) cholecalciferol (vitamin D3) [Vitamin D3] 25 mcg (1,000 unit) capsule 25 mcg PO DAILY (DME) elastic bandage 3 bandage See Rx Instructions .Route Rx Instructions: Apply to LLE as needed for swelling and continue to elevate the LE's as needed. cefdinir 300 mg capsule 300 mg PO .QOD lidocaine-prilocaine 2.5-2.5 % cream 1 applic topical .COMPLEX Rx Instructions: 1 applic topical prior to dialysis; sorbitol 70 % solution 60 ml PO DAILY PRN (Reason: constipation) (DME) elastic bandage Bandage See Rx Instructions .Route Rx Instructions: Apply every day to LLE as needed. witch maai-glycerin (hamamel) Pads, Medicated 1 pad topical BID PRN (Reason: hemorrhoids) lidocaine-menthol [Icy Hot Patch (lido-menthol)] 4-1 % adhesive patch,medicated 1 patch topical Q4H PRN (Reason: Bleeding hemorrhoids) ondansetron HCl 8 mg tablet 8 mg PO TID PRN (Reason: nausea and vomiting) promethazine 12.5 mg suppository 12.5 mg [place] Q8H PRN (Reason: nausea and vomiting) bumetanide 1 mg tablet 1 mg PO .COMPLEX Rx Instructions: 1 mg orally On non dialysis days; ON alprazolam 0.25 mg tablet 0.25 mg PO BID PRN (Reason: Anxiety) 30 Days Qty: 60 5RF carisoprodol 350 mg tablet 350 mg PO BID PRN (Reason: muscle spasticity) Qty: 60 3RF diphenoxylate-atropine [Lomotil] 2.5-0.025 mg tablet 1 tab PO QID 30 Days Qty: 120 0RF hydrocodone-acetaminophen 10-325 mg tablet 1 tab PO Q4H 30 Days Qty: 180 0RF Marybel-Eugenio Rx 1-60-300 mg-mg-mcg Tablet 1 tab PO DAILY calcium acetate(phosphat bind) 667 mg tablet 667 mg PO TID tamsulosin [Flomax] 0.4 mg capsule 0.4 mg PO DAILY carvedilol 12.5 mg tablet 12.5 mg PO BID simethicone 125 mg Capsule See Rx Instructions .ROUTE .COMPLEX PRN (Reason: GAS) Rx Instructions: 125 mg orally as DIRECTED promethazine 25 mg tablet 25 mg PO BID PRN (Reason: Nausea And Vomiting) polyethylene glycol 3350 17 gram/dose Powder 4 g PO DAILY PRN (Reason: Constipation) Constulose 10 gram/15 mL Solution 20 g PO BID sevelamer carbonate 800 mg tablet 800 mg PO TID Xtampza ER 18 mg cap,sprinkl,ER12hr(DONT CRUSH) 18 mg PO BID Anti-Diarrheal (loperamide) 2 mg tablet 2 mg PO Q8H PRN (Reason: Diarrhea) Discharge Orders: Discharge Order (Routine); Ordered 01/22/23 Ordered By: Jorge Pete Referrals: [facility] [Outside] Soren Waters DO [Primary Care Provider] - 2 weeks Discharge Diet: Advance as tolerated and Usual diet Discharge Activity: As per PT/OT instructions Patient Instructions: Dialysis Diet (DC), Pelvic Fracture (GEN), Hemodialysis (DC), Opioid Safety Activity Restrictions/Additional Instructions: 1. Take medications as prescribed. 2. Continue dialysis. 3. Follow up with PCP. 4. Left lower extremity toe touch weight bearing. Discharge Attestations Time Spent in Discharge Care*: greater than 30 min Quality Metrics Clinical Quality Measures [ No reported AMI, CVA or VTE this stay] Coding Level of Care Code Acute Code for Chg Fwd Diagnoses ESRD (end stage renal disease) N18.6
--- NOTE | 2023-01-22 13:28 | PC.SOCIAL ---
Pg 2 IMM Explained to pt's daughter, Pg 2 IMM. No questions voiced. Provided pt a copy. Initialed, dated, & timed a copy & placed in chart.
[2023-01-22 13:40] LABS: Basophils % 0.4 %; Eosinophils # 0.1 10^3/uL (0.0-0.8); Eosinophils % 2.7 %; Hematocrit 29.3 % (37.0-47.0); Lymphocytes # 0.9 10^3/uL (0.8-4.8); Lymphocytes % 17.4 %; Mean Corpuscular HGB Conc 30.7 g/dL (30.0-36.0); Mean Corpuscular Hemoglobin 35.9 pg (28.0-34.0); Mean Corpuscular Volume 116.7 fl (81-99); Mean Platelet Volume 10.1 fL (7.4-10.4); Monocytes # 0.6 10^3/uL (0.2-0.9); Monocytes % 10.9 %; Neutrophils % 68.4 %; Nucleated Red Blood Cells % 0 %; Platelet Count 157 10^3/cmm (130-400); Red Blood Count 2.51 10^6/uL (4.1-5.3); Red Cell Distribution Width 14.2 % (12.1-15.1); White Blood Count 5.1 10^3/uL (4.0-10.0)
[2023-01-22 14:14] LABS: Alanine Aminotransferase 11 U/L (0-33); Albumin Level 2.5 g/dL (3.5-5.2); Alkaline Phosphatase 71 U/L (35-105); Blood Urea Nitrogen 46 mg/dL (8-23); Calcium 8.7 mg/dL (8.5-10.5); Carbon Dioxide 26 mmol/L (22-29); Chloride 97 mmol/L (98-107); Creatinine Clr Calc Pharmacy 6.1696; Globulin 2.1 g/dL (1.3-4.6); Glucose 116 mg/dL (65-115); Osmolality Calculated 293 mOsm/kg (285-295); Sodium 135 mmol/L (136-145); Total Bilirubin 0.3 mg/dL (0.15-1.2); Total Protein 4.6 g/dL (6.6-8.7)
[2023-01-22 14:24] LABS: Anion Gap 16.2 (5-19); Aspartate Amino Transferase 19 U/L (0-32); Potassium 4.2 mmol/L (3.5-5.1)
[2023-01-22] MEDS: albumin 12.5 GM/50 ML VIAL IV (14:55)
[2023-01-22 16:02] LABS: SARS Covid-2 Antigen negative (Negative)
--- NOTE | 2023-01-22 16:22 | PC.NURSE ---
report called to Francisca at [facility]
== END 2023-01-22 19:01 | disposition home or self-care (01) | DRG 559 ==
LOC: ER 01-19 02:13 → MEDSURG 01-19 02:36
PROVIDERS: Hospitalist; Student in an Organized Health Care Education/Training Program; Admitting Provider Student in an Organized Health Care Education/Training Program; Emergency Provider Emergency Medicine; PCP Family Medicine; Visit Provider Internal Medicine
DX: M96.65 Fracture of pelvis following insertion of orthopedic implant, joint prosthesis, or bone plate (principal); L89.313 Pressure ulcer of right buttock, stage 3; N18.6 End stage renal disease; I13.2 Hypertensive heart and chronic kidney disease with heart failure and with stage 5 chronic kidney disease, or end stage renal disease; I50.32 Chronic diastolic (congestive) heart failure; M19.90 Unspecified osteoarthritis, unspecified site; I48.0 Paroxysmal atrial fibrillation; W18.11XA Fall from or off toilet without subsequent striking against object, initial encounter; Y92.121 Bathroom in nursing home as the place of occurrence of the external cause; Y99.9 Unspecified external cause status; Z99.2 Dependence on renal dialysis; Z86.711 Personal history of pulmonary embolism; D63.1 Anemia in chronic kidney disease; K21.9 Gastro-esophageal reflux disease without esophagitis; F41.9 Anxiety disorder, unspecified; F32.A Depression, unspecified; Y83.8 Other surgical procedures as the cause of abnormal reaction of the patient, or of later complication, without mention of misadventure at the time of the procedure; Y79.2 Prosthetic and other implants, materials and accessory orthopedic devices associated with adverse incidents
CPT/HCPCS: 36415; 70450; 71045; 73502; 73700; 80053; 80061; 82607; 82746; 83036; 83540; 83550; 84443; 85025; 85610; 86706; 87340; 87426; 90935; 93005; 96372; 97161; 97530; 99285; J1170; J1644; P9047

== ENCOUNTER 2023-02-01 14:20 | Inpatient (IN) | payer MEDICARE, OTHER, SELFPAY ==
[2023-02-01 14:26] VITALS: BP 92/51; PULSE 83; RESP 17; TEMP 37; O2SAT 96
--- NOTE | 2023-02-01 14:31 | ECG_ITS ---
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 Measurements Intervals [place] Rate: 67 P: 42 VT: 222 QRS: 68 QRSD: 92 T: 15 QT: 398 QTc: 423 Interpretive Statements SINUS RHYTHM WITH FIRST DEGREE AV BLOCK Compared to ECG 01/18/2023 22:12:58 No significant changes Electronically Signed On 02-01-2023 20:29:51 CDT by Lani Baxter M.D. [email or web address] [email or web address] hospital [email or web address] [id number]
--- NOTE | 2023-02-01 14:31 | XRR_ITS ---
PROCEDURE INFORMATION: Exam: XR Chest Exam date and time: 02/01/2023 2:36 PM Age: 87 years old Clinical indication: Other: Weakness TECHNIQUE: Imaging protocol: Radiologic exam of the chest. Views: 1 view. COMPARISON: CR (CHEST, ) 01/18/2023 10:32 PM FINDINGS: Lungs: Emphysematous changes. Pleural spaces: Trace bilateral pleural effusions suspected. Heart/Mediastinum: Cardiomegaly. Bones/joints: Unremarkable. XR/XR chest 1V portable [id number] IMPRESSION: 1. Cardiomegaly. 2. Emphysematous changes. 3. Trace bilateral pleural effusions suspected.
--- NOTE | 2023-02-01 14:34 | ED_ITS ---
HPI - Weakness General: Chief complaint: Weakness Stated complaint: low BP Time Seen by Provider: 02/01/23 14:26 History of Present Illness: Presents via EMS with from the long term with chief complaint of low blood pressure. Patient does have end-stage renal disease and is on dialysis. Patient also has a nonoperative hip fracture. Patient missed dialysis on Monday and again today. Patient's blood pressure has been in the 80s. Patient is at increased level of confusion and decreased awareness. Patient has a decubitus ulcer on the right buttock region with what appears to be a dressing and tubing for wound VAC in place. Review of Systems General: Reports: 10 or more systems reviewed and unremarkable except in HPI and below PFSH ED PFSH: Medical History Acetabulum fracture, left Anemia of chronic disease Anxiety and depression DDD (degenerative disc disease) Decubitus ulcer, buttock, right, unstageable Diastolic CHF ESRD (end stage renal disease) Fall Fibromyalgia GERD (gastroesophageal reflux disease) History of breast cancer Previously followed by Dr. Santoyo History of pulmonary embolus (PE) 08/2016 History of stroke 11/14/16 Hyperlipidemia Hypertension Incomplete bladder emptying Internal and external bleeding hemorrhoids Lumbar spinal stenosis Osteoarthritis Paroxysmal A-fib Peritoneal dialysis catheter in place Recurrent UTI Restrictive lung disease Urinary retention Surgical History History of back surgery History of esophagogastroduodenoscopy (EGD) 08/03/17 mild gastritis and duodenitis History of hemiarthroplasty of left hip 11/18/18: Dr. Mendoza History of hysterectomy History of lumpectomy of left breast History of right cataract surgery Family History Other Cancer Denies family history of Anesthesia complication Bleeding disorder Social History Second hand smoke exposure: No Alcohol intake: never Substance/Drug Use: never Adopted: No Caregiver/support person: Yes Lives independently: Yes Housing: Assisted Living Facility Marital status: Marital status details: with dementia Additional social history: FULL CODE DISCUSSED WITH PATIENT ON 02/04/20 Physical Exam Const: COMMON NORMALS: no acute distress, average body habitus, alert and well nourished HENMT: COMMON NORMALS: normocephalic, atraumatic, hearing grossly normal bilaterally, external ears normal, Normal external nose present and moist oral mucous membranes HEAD & SCALP: normocephalic and atraumatic NOSE: Normal external nose present EXTERNAL EAR: Yes external ears normal Neck/C-Spine: COMMON NORMALS: full ROM, no lymphadenopathy, supple, no meningeal signs and no JVD Chest: COMMONS NORMALS: normal inspection of the chest and normal palpation of entire chest wall Resp: COMMON NORMALS: normal respiratory effort, No retractions, No use of accessory muscles and clear to auscultation bilaterally AUSCULTATION: clear to auscultation bilaterally Cardio: COMMON NORMALS: no JVD, regular rate, regular rhythm, S1 normal heart sound present, S2 normal heart sound present, No gallops present (Cardio), No clicks present (Cardio), No murmurs present (Cardio) and No rub (Cardio) RATE: regular rate RHYTHM: regular rhythm HEART SOUNDS: S1 normal heart sound present and S2 normal heart sound present GI: COMMON NORMALS: Normal to inspection, nondistended, normoactive bowel sounds present, Soft to palpation, No hepatosplenomegaly present and no masses PALPATION: Yes Soft to palpation and Yes No hepatosplenomegaly present : COMMON NORMALS: Yes no CVA tenderness BLADDER/KIDNEY EXAM: Yes no CVA tenderness Back/Pelvis: COMMON NORMALS: no CVA tenderness Extremity: NARRATIVE EXTREMITY EXAM: No edema to bilateral lower extremities. Neuro: SENSORIUM/ORIENTATION: Yes alert MENINGEAL SIGNS: Yes no meningeal signs Course Vital Signs: Vital signs: Vital Signs Temperature 98.4 F 02/03/23 16:00 Pulse Rate 68 02/03/23 16:00 Respiratory Rate 17 02/03/23 16:24 Blood Pressure 119/61 02/03/23 16:00 Pulse Oximetry 97 02/03/23 16:00 Oxygen Delivery Me thod Nasal Cannula 02/03/23 12:00 Oxygen Flow Rate 2 02/03/23 08:00 MDM - Weakness Medical Decision Making Patient presents to the ER with complaints of increased weakness and decreased blood pressure. She missed dialysis 2 days in a row due to weakness. Patient does have a broken hip as inoperable. Patient is confused. Lab work was obtained as well as chest x-ray and chest CTA. Patient was given 2 g of Rocephin IV. Dr. Zully arnold nephrology was consulted patient will be admitted to Dr. Hernandez with diagnosis of low blood pressure, end-stage renal disease on dialysis, and urinary tract infection. Differential Diagnosis Unlikely acute myocardial infarction, anemia, hypoglycemia, hypothyroidism, rhabdomyolysis, sepsis or dehydration Medical Records I reviewed the patient's medical records. Lab Data I reviewed the patient's lab results. 02/03/23 05:06 02/03/23 05:06 Radiology Impressions Chest X-Ray 02/01/23 14:31 IMPRESSION: 1. Cardiomegaly. 2. Emphysematous changes. 3. Trace bilateral pleural effusions suspected. Chest CTA 02/02/23 09:02 IMPRESSION: 1. Proximal main pulmonary arteries are normal. No evidence of pulmonary embolu s. 2. Small bilateral pleural effusions. Compressive atelectasis in the lung bases. 3. Cardiomegaly. Laboratory Results WBC 5.3 10^3/uL (4.0-10.0) 02/02/23 05:23 Corrected WBC Supervisor Sandblaster 02/02/23 05:23 RBC 2.20 10^6/uL (4.1-5.3) L 02/02/23 05:23 Hgb 8.0 g/dL (11.5-15.3) L 02/02/23 05:23 Hct 24.9 % (37.0-47.0) L 02/02/23 05:23 MCV 113.2 fl (81-99) H 02/02/23 05:23 MCH 36.4 pg (28.0-34.0) H 02/02/23 05:23 MCHC 32.1 g/dL (30.0-36.0) 02/02/23 05:23 RDW 15.3 % (12.1-15.1) H 02/02/23 05:23 Plt Count 173 10^3/cmm (130-400) 02/02/23 05:23 Plt Count Cancelled 02/02/23 05:23 MPV 9.5 fL (7.4-10.4) 02/02/23 05:23 Gran % Supervisor Sandblaster 02/02/23 05:23 Neut % (Auto) 70.0 % 02/02/23 05:23 Lymph % (Auto) 14.7 % 02/02/23 05:23 [place] % (Auto) 9.7 % 02/02/23 05:23 Eos % (Auto) 4.8 % 02/02/23 05:23 Baso % (Auto) 0.6 % 02/02/23 05:23 Neut # (Auto) 3.68 10^3/uL (1.8-7.7) 02/02/23 05:23 Lymph # (Auto) 0.8 10^3/uL (0.8-4.8) 02/02/23 05:23 [place] # (Auto) 0.5 10^3/uL (0.2-0.9) 02/02/23 05:23 Eos # (Auto) 0.3 10^3/uL (0.0-0.8) 02/02/23 05:23 Baso # (Auto) 0.0 10^3/uL (0.0-0.1) 02/02/23 05:23 Absolute Gran (auto) Supervisor Sandblaster 02/02/23 05:23 Nucleated RBC % (auto) 0 % 02/02/23 05: Nucleated RBCs # 0.0 /100WBC 02/02/23 05:23 APTT 36.0 SECONDS (23.9-36.7) 02/02/23 15:34 D-Dimer 11.79 ug/mIFEU (0-0.59) H 02/01/23 14:57 Sodium 138 mmol/L (136-145) 02/02/23 05:23 Potassium 4.2 mmol/L (3.5-5.1) 02/02/23 05:23 Chloride 99 mmol/L (98-107) 02/02/23 05:23 Carbon Dioxide 25 mmol/L (22-29) 02/02/23 05:23 Anion Gap 18.2 (5-19) 02/02/23 05:23 BUN 37 mg/dL (8-23) H 02/02/23 05:23 Creatinine 3.6 mg/dL (0.5-0.9) H 02/02/23 05:23 GFR Calculation Not Reportable 02/02/23 05:23 Glucose 89 mg/dL (65-115) 02/02/23 05:23 Calculated Osmolality 294 mOsm/kg (285-295) 02/02/23 05:23 Lactic Acid 1.1 mmol/L (0.5-2.2) 02/01/23 14:57 Calcium 8.3 mg/dL (8.5-10.5) L 02/02/23 05:23 Phosphorus 5.2 mg/dL (2.5-4.5) H 02/01/23 14:57 Magnesium 1.6 mg/dL (1.7-2.3) L 02/02/23 05:23 Total Bilirubin 0.3 mg/dL (0.15-1.2) 02/01/23 14:57 AST 12 U/L (0-32) 02/01/23 14:57 ALT 9 U/L (0-33) 02/01/23 14:57 Alkaline Phosphatase 147 U/L (35-105) H 02/01/23 14:57 Troponin T Baseline 184 ng/L (0-10) H* 02/02/23 11:57 Troponin T 120 Minute 178.8 ng/L (0-10) H 02/02/23 14:00 Delta Troponin T -5.2 ABS# (0-10) L 02/02/23 14:00 C-Reactive Protein 69.6 mg/L (0.0-4.9) H 02/02/23 05:23 Total Protein 4.8 g/dL (6.6-8.7) L 02/01/23 14:57 Albumin 2.6 g/dL (3.5-5.2) L 02/01/23 14:57 Globulin 2.2 g/dL (1.3-4.6) 02/01/23 14:57 Procalcitonin 0.32 ng/mL (0-0.5) 02/01/23 14:57 TSH 3.84 uIU/mL (0.27-4.20) 02/01/23 14:57 Urine Color Yellow (Yellow) 02/01/23 15:22 Urine Appearance Cloudy (CLEAR) A 02/01/23 15:22 Urine pH 6 (5-7) 02/01/23 15:22 Ur Specific [place] 1.015 (1.005-1.030) 02/01/23 15:22 Urine Protein 2+ (Negative) H 02/01/23 15:22 Urine Glucose (UA) Norm (Normal) 02/01/23 15:22 Urine Ketones Negative (Negative) 02/01/23 15:22 Urine Blood 2+ (Negative) H 02/01/23 15:22 Urine Nitrate Negative (Negative) 02/01/23 15:22 Urine Bilirubin Neg (Negative) 02/01/23 15:22 Urine Urobilinogen Norm mg/dL (Negative) 02/01/23 15:22 Ur Leukocyte Esterase 2+ (Negative) H 02/01/23 15:22 Urine RBC 5-10 /hpf (0-2) H 02/01/23 15:22 Urine WBC >100 /hpf (0-5) H 02/01/23 15:22 Ur Squamous Epith Cells 0-4 /hpf (0-5) H 02/01/23 15:22 Amorphous Sediment Not Reportable 02/01/23 15:22 Urine Bacteria 4+ /hpf (NONE) H 02/01/23 15:22 Urine Mucus 1+ /hpf 02/01/23 15:22 Hep Bs Antigen Non-reactive (Nonreactive) 02/01/23 14:57 Hep Bs Antibody 75.1 (11.5-1000) 02/01/23 14:57 Hep B Core Total Ab Non-reactive (Nonreactive) 02/01/23 14:57 EKG Data EKG 1: I personally reviewed and interpreted this EKG as follows: EKG interpretation date: 02/01/23 EKG interpretation time: 14:57 Prior EKG tracings: not available for review Interpretation: EKG showed ventricular rate 67 beats a minute, CA interval 222, QRS 92, QTc 414, sinus rhythm with first-degree AV block, no ST-T wave changes Discharge Plan Discharge Patient Disposition: Admitted As Inpatient Admit Provider: Marycarmen Mcrae Clinical Impression: ESRD (end stage renal disease) on dialysis Urinary tract infection Qualifiers: Urinary tract infection type: acute cystitis Hematuria presence: with hematuria Qualified Code(s): N30.01 - Acute cystitis with hematuria Low BP Qualifiers: Hypotension type: unspecified hypotension type Qualified Code(s): I95.9 - Hypotension, unspecified Condition: Stable Coding Level of Care Code ED Dentist/Owner for [facility] [place]
[2023-02-01] MEDS: sodium chloride 0.9% 1,000 ML 999 ML IV (14:50)
[2023-02-01 15:09] LABS: Basophils % 0.4 %; Eosinophils # 0.3 10^3/uL (0.0-0.8); Eosinophils % 3.8 %; Hematocrit 27.7 % (37.0-47.0); Lymphocytes # 1.1 10^3/uL (0.8-4.8); Lymphocytes % 14.9 %; Mean Corpuscular HGB Conc 32.5 g/dL (30.0-36.0); Mean Corpuscular Hemoglobin 36.9 pg (28.0-34.0); Mean Corpuscular Volume 113.5 fl (81-99); Mean Platelet Volume 9.7 fL (7.4-10.4); Monocytes # 0.5 10^3/uL (0.2-0.9); Monocytes % 6.9 %; Neutrophils % 73.6 %; Nucleated Red Blood Cells % 0 %; Platelet Count 193 10^3/cmm (130-400); Red Blood Count 2.44 10^6/uL (4.1-5.3); Red Cell Distribution Width 15.1 % (12.1-15.1); White Blood Count 7.1 10^3/uL (4.0-10.0)
[2023-02-01 15:28] LABS: Lactic Sepsis W/Reflex 1.1 mmol/L (0.5-2.2)
[2023-02-01 15:29] LABS: Alanine Aminotransferase 9 U/L (0-33); Albumin Level 2.6 g/dL (3.5-5.2); Alkaline Phosphatase 147 U/L (35-105); Anion Gap 23.5 (5-19); Aspartate Amino Transferase 12 U/L (0-32); Calcium 8.3 mg/dL (8.5-10.5); Carbon Dioxide 21 mmol/L (22-29); Chloride 95 mmol/L (98-107); Globulin 2.2 g/dL (1.3-4.6); Glucose 97 mg/dL (65-115); Magnesium 1.6 mg/dL (1.7-2.3); Osmolality Calculated 303 mOsm/kg (285-295); Phosphorus 5.2 mg/dL (2.5-4.5); Potassium 5.5 mmol/L (3.5-5.1); Sodium 134 mmol/L (136-145); Total Bilirubin 0.3 mg/dL (0.15-1.2); Total Protein 4.8 g/dL (6.6-8.7)
[2023-02-01 15:31] LABS: Blood Urea Nitrogen 82 mg/dL (8-23)
[2023-02-01] MEDS: HYDROmorphone 1 mg/mL INJ 1 mL 0.5 MG IVP ×3 (15:32→20:32)
[2023-02-01 15:36] LABS: Procalcitonin 0.32 ng/mL (0-0.5)
[2023-02-01 16:24] LABS: Specific Gravity, Urine 1.015 (1.005-1.030); Urine Appearance Cloudy (CLEAR); Urine Color Yellow (Yellow); pH Urine 6 (5-7)
[2023-02-01 16:25] LABS: Add Urine Microscopic? YES; Bilirubin Urine Neg (Negative); Blood Urine 2+ (Negative); Glucose Urine UA Norm (Normal); Ketones Urine Negative (Negative); Leukocyte Esterase Urine 2+ (Negative); Nitrate Urine Negative (Negative); Protein Urine 2+ (Negative); Urobilinogen Urine Norm (Negative)
[2023-02-01 16:26] LABS: Add Urine Culture? Yes; Bacteria Urine 4+ /hpf; Mucus Urine 1+ /hpf; Squamous Epithelial Cell Urine 0-4 /hpf (0-5); WBC Urine >100 /hpf (0-5)
--- NOTE | 2023-02-01 16:47 | PC.PHAR ---
pt is from [facility] [phone]-per levi nurse from [facility] states the pt took all am meds except for bp meds states the pt hasnt taken today or last night-
[2023-02-01 16:53] VITALS: BP 127/54; PULSE 75; RESP 16; O2SAT 98
--- NOTE | 2023-02-01 17:26 | P.HP_ITS ---
Providers/Chief Complaint Primary Care Provider: Soren Waters DO Chief Complaint: low BP History of Present Illness Milla Thomas is a 87 year old female lives at assisted living with multiple comorbid conditions including end-stage renal disease, osteoarthritis, chronic hypoxia, fibromyalgia, chronic anemia, diastolic CHF, recent left acetabular fracture which was managed conservatively patient presented from [facility] for missing dialysis secondary to fatigue and lethargy. The ER she was diagnosed with UTI without any signs of sepsis. She was hypotensive responded well to IV fluids. Nephrology consulted. Review of Systems Const: Reports: body aches; Denies: fever(s) Eyes: Denies: change in vision ENMT: Denies: throat pain Card: Denies: chest pain Resp: Reports: dyspnea GI: Reports: diarrhea : Reports: difficulty voiding and urinary frequency Musc: Reports: back pain Skin/Breast: Denies: rash Neuro: Denies: headache(s) Medications/Allergies Home Medications Medication Instructions Recorded Confirmed Last Taken Type acetaminophen 325 mg tablet 650 mg PO Q4H PRN Pain 11/13/19 02/01/23 03/29/21 History (Tylenol) citalopram 10 mg tablet (Celexa) 10 mg PO DAILY 11/13/19 02/01/23 02/01/23 History ipratropium 0.5 mg-albuterol 3 mg 3 ml inhalation Q4H PRN Shortness 11/13/19 0 02/01/23 Unknown History (2.5 mg base)/3 mL nebulization Of Breath soln isosorbide mononitrate 30 mg 30 mg PO DAILY 11/13/19 02/01/23 02/01/23 History tablet,extended release 24 hr pantoprazole 40 mg tablet,delayed 40 mg PO BID 11/13/19 02/01/23 02/01/23 History release (Protonix) vitamin B comp no.3-folic acid 1 1 tab PO DAILY 02/25/20 02/01/23 02/01/23 History mg-vit C 60 mg-biotin 300 mcg tablet (Marybel-Eugenio Rx) tamsulosin 0.4 mg capsule (Flomax) 0.4 mg PO BEDTIME 09/08/20 02/01/23 01/31/23 History calcium acetate(phosphat bind) 667 667 mg PO TID 03/29/21 02/01/23 02/01/23 History mg tablet bisacodyl 10 mg rectal suppository 10 mg MI DAILY PRN constipation 10/10/21 02/01/23 Unknown History cefdinir 300 mg capsule 300 mg PO EVERY OTHER DAY Dialysis 10/10/21 02/01/23 02/01/23 History cholecalciferol (vitamin D3) 25 25 mcg PO DAILY 10/10/21 02/01/23 02/01/23 History mcg (1,000 unit) capsule (Vitamin D3) elastic bandage 10/10/21 02/01/23 Unknown History elastic bandage 3 10/10/21 02/01/23 Unknown History lidocaine-prilocaine 2.5 %-2.5 % 1 applic topical .COMPLEX 10/10/21 02/01/23 Unknown History topical cream ondansetron HCl 8 mg tablet 8 mg PO TID PRN nausea and vomiting 10/10/21 02/01/23 02/01/23 History promethazine 12.5 mg rectal 12.5 mg MI Q8H PRN nausea and 10/10/21 02/01/23 Unknown History suppository vomiting simethicone 80 mg chewable tablet 80 mg PO DAILY PRN abdominal 10/10/21 02/01/23 Unknown History (Gas Relief (simethicone)) distention sodium phosphates 19 gram-7 118 ml MI DAILY PRN constipation 10/10/21 02/01/23 Unknown History gram/118 mL enema (Fleet Enema) sorbitol 70 % solution 60 ml PO DAILY PRN constipation 10/10/21 02/01/23 Unknown History alprazolam 0.25 mg tablet 0.25 mg PO BID PRN Anxiety 30 days 07/07/22 02/01/23 Unknown Rx #60 tabs carisoprodol 350 mg tablet 350 mg PO BID PRN muscle 07/17/22 02/01/23 Unknown Rx spasticity #60 tabs bumetanide 1 mg tablet 1 mg PO .COMPLEX 01/18/23 02/01/23 Unknown History carvedilol 12.5 mg tablet See Rx Instructions .Route .COMPLEX 01/19/23 02/01/23 Unknown History lactulose 10 gram/15 mL oral 20 g PO BID 01/19/23 02/01/23 02/01/23 History solution (Constulose) loperamide 2 mg tablet 2 - 4 mg PO TID PRN if lomotil is 01/19/23 02/01/23 Unknown History (Anti-Diarrheal (loperamide)) ineffective oxycodone myristate 18 mg capsule 18 mg PO BID 01/19/23 02/01/23 02/01/23 History sprinkle extended release 12hr(DON'T CRUSH) (Xtampza ER) polyethylene glycol 3350 17 17 g PO DAILY PRN Constipation 01/19/23 02/01/23 Unknown History gram/dose oral powder promethazine 25 mg tablet 25 mg PO BID PRN Nausea And 01/19/23 02/01/23 Unknown History Vomiting sevelamer carbonate 800 mg tablet 800 mg PO TID 01/19/23 02/01/23 02/01/23 History simethicone 125 mg capsule See Rx Instructions .Route .COMPLEX 01/19/23 02/01/23 Unknown History carvedilol 12.5 mg tablet See Rx Instructions .Route .COMPLEX 02/01/23 02/01/23 Unknown History diphenoxylate-atropine 2.5 1 tab PO QID PRN Diarrhea 02/01/23 02/01/23 Unknown History mg-0.025 mg tablet (Lomotil) hydrocodone 10 mg-acetaminophen 1 tab PO Q4H PRN Pain 02/01/23 02/01/23 02/01/23 History 325 mg tablet loperamide 2 mg tablet 2 mg PO Q8H PRN Diarrhea 02/01/23 02/01/23 Unknown History naloxone 0.4 mg/mL injection See Rx Instructions .Route .COMPLEX 02/01/23 02/01/23 Unknown History solution witch maia 50 % topical pads 1 pad topical BID PRN Hemorrhoids 02/01/23 02/01/23 Unknown History (Hemorrhoidal (witch maia)) Allergies Allergy/AdvReac Type Severity Reaction Status Date / Time amitriptyline [From Elavil] Allergy Unknown Unknown Verified 02/01/23 16:22 cyclobenzaprine Allergy Unknown Unknown Verified 02/01/23 16:22 [From Flexeril] Penicillins Allergy Unknown Unknown Verified 02/01/23 16:22 pentazocine [From Talwin] Allergy Unknown Unknown Verified 02/01/23 16:22 pregabalin [From Lyrica] Allergy Unknown Unknown Verified 01/27/23 07:42 tizanidine Allergy Unknown Unknown Verified 02/01/23 16:22 doxycycline Allergy Unknown Verified 02/01/23 16:22 morphine Allergy Unknown Verified 02/01/23 16:22 naloxone Allergy Unknown Verified 02/01/23 16:23 Sulfa (Sulfonamide Allergy Unknown Verified 02/01/23 16:23 Antibiotics) sulfamethoxazole AdvReac kidney Verified 01/27/23 07:42 [From Bactrim] trimethoprim [From Bactrim] AdvReac kidney Verified 01/27/23 07:42 PFSH Acute PFSH: Medical History Acetabulum fracture, left Anemia of chronic disease Anxiety and depression DDD (degenerative disc disease) Decubitus ulcer, buttock, right, unstageable Diastolic CHF ESRD (end stage renal disease) Fall Fibromyalgia GERD (gastroesophageal reflux disease) History of breast cancer Previously followed by Dr. Santoyo History of pulmonary embolus (PE) 08/2016 History of stroke 11/14/16 Hyperlipidemia Hypertension Incomplete bladder emptying Internal and external bleeding hemorrhoids Lumbar spinal stenosis Osteoarthritis Paroxysmal A-fib Peritoneal dialysis catheter in place Recurrent UTI Restrictive lung disease Urinary retention Surgical History History of back surgery History of esophagogastroduodenoscopy (EGD) 08/03/17 mild gastritis and duodenitis History of hemiarthroplasty of left hip 11/18/18: Dr. Mendoza History of hysterectomy History of lumpectomy of left breast History of right cataract surgery Family History Other Cancer Denies family history of Anesthesia complication Bleeding disorder Social History Second hand smoke exposure: No Alcohol intake: never Substance/Drug Use: never Adopted: No Caregiver/support person: Yes Lives independently: Yes Housing: Assisted Living Facility Marital status: Marital status details: with dementia Additional social history: FULL CODE DISCUSSED WITH PATIENT ON 02/04/20 Vitals/I&O/Wt Last Vital Signs Temp 98.6 F 02/01/23 14:26 Pulse 75 02/01/23 16:53 Resp 16 02/01/23 16:53 BP 127/54 02/01/23 16:53 Pulse Ox 98 02/01/23 16:53 O2 Del Method Nasal Cannula 02/01/23 14:26 O2 Flow Rate 2 02/01/23 14:26 Physical Exam Narrative: Frail female Left arm fistula GCS 15 Nonfocal neuro exam Lower extremity venous stasis dermatitis Mild/trace edema of legs Abdomen soft Nonfocal neuro exam S1, S2 On 2 L of oxygen Data 02/02/23 05:23 02/02/23 05:23 A&P Assessment and plan (1) Urinary tract infection: Qualifiers: Hematuria presence: with hematuria Urinary tract infection type: acute cystitis Qualified Code(s): N30.01 - Acute cystitis with hematuria (2) Low BP: Qualifiers: Hypotension type: unspecified hypotension type Qualified Code(s): I95.9 - Hypotension, unspecified (3) ESRD (end stage renal disease) on dialysis: (4) Decubitus ulcer of buttock: (5) Hypoxemic respiratory failure, chronic: (6) Chronic diarrhea: (7) Lives in assisted living facility: (8) Decubitus ulcer, buttock, right, unstageable: (9) Recurrent UTI: (10) Diastolic CHF: Plan Fatigue likely related to UTI Start antibiotics Patient has history of recurrent UTIs Start broad-spectrum antibiotics at this point Requested blood and urine culture Blood culture patient is not septic Diarrhea: Rule out C. difficile Hypovolemic hypotension: We will to IV fluid hydration in the ER blood pressure stable at this point End-stage renal disease: Consult nephro Hyperkalemia without cardiological EKG signs Patient to go for dialysis today Patient has been missed 2 dialysis sessions Recent left acetabular fracture which was managed conservatively secondary to multiple comorbid conditions Weightbearing to toe-touch Full code Renal diet DVT prophylaxis on board Patient is from [facility] Medical Necessity Statement*: Anticipating discharge within 48 hours Diagnoses Urinary tract infection N30.01 Hematuria presence: with hematuria Urinary tract infection type: acute cystitis Low BP I95.9 Hypotension type: unspecified hypotension type ESRD (end stage renal disease) on dialysis N18.6; Z99.2 Decubitus ulcer of buttock L89.309 Hypoxemic respiratory failure, chronic J96.11 Chronic diarrhea K52.9 Lives in assisted living facility Z59.3 Decubitus ulcer, buttock, right, unstageable L89.310 Recurrent UTI N39.0 Diastolic CHF I50.30
[2023-02-01] MEDS: cefTRIAXone 2,000 MG in sodium chloride 0.9% (plus) 50 ML 100 MG IV (17:32)
[2023-02-01 18:11] LABS: D Dimer 11.79 ug/mIFEU (0-0.59)
[2023-02-01 18:48] VITALS: BP 114/53; PULSE 86; RESP 19; O2SAT 100
[2023-02-01 19:18] VITALS: BP 146/62; PULSE 76; RESP 18; O2SAT 100
--- NOTE | 2023-02-01 19:38 | P.CONIM_ITS ---
Providers/Reason For Consult Consulting Physician/Specialty*: [facility]/Nephrology Reason for Consult*: ESRD Attending Physician: Marycarmen Mcrae MD Primary Care Provider: Soren Waters DO History of Present Illness History of Present Illness Milla Thomas is a 87 year old female Patient is a 87-year-old female with multiple comorbidities including end-stage renal disease on dialysis, CHF, recent left hip fracture chronic, fibromyalgia was sent from [facility] due to patient's lethargy and missed dialysis. Patient had urinary tract infection, and hypotension. Patient was admitted to the telemetry for further management. She currently denies any complaints Review of Systems Narrative: NEGATIVE Medications/Allergies Home Medications Medication Instructions Recorded Confirmed Last Taken Type acetaminophen 325 mg tablet 650 mg PO Q4H PRN Pain 11/13/19 02/01/23 03/29/21 History (Tylenol) citalopram 10 mg tablet (Celexa) 10 mg PO DAILY 11/13/19 02/01/23 02/01/23 History ipratropium 0.5 mg-albuterol 3 mg 3 ml inhalation Q4H PRN Shortness 11/13/19 02/01/23 Unknown History (2.5 mg base)/3 mL nebulization Of Breath soln isosorbide mononitrate 30 mg 30 mg PO DAILY 11/13/19 02/01/23 02/01/23 History tablet,extended release 24 hr pantoprazole 40 mg tablet,delayed 40 mg PO BID 11/13/19 02/01/23 02/01/23 History release (Protonix) vitamin B comp no.3-folic acid 1 1 tab PO DAILY 02/25/20 02/01/23 02/01/23 History mg-vit C 60 mg-biotin 300 mcg tablet (Marybel-Eugenio Rx) tamsulosin 0.4 mg capsule (Flomax) 0.4 mg PO BEDTIME 09/08/20 02/01/23 01/31/23 History calcium acetate(phosphat bind) 667 667 mg PO TID 03/29/21 02/01/23 02/01/23 History mg tablet bisacodyl 10 mg rectal suppository 10 mg FL DAILY PRN constipation 10/10/21 02/01/23 Unknown History cefdinir 300 mg capsule 300 mg PO EVERY OTHER DAY Dialysis 10/10/21 02/01/23 02/01/23 History cholecalciferol (vitamin D3) 25 25 mcg PO DAILY 10/10/21 02/01/23 02/01/23 History mcg (1,000 unit) capsule (Vitamin D3) elastic bandage 10/10/21 02/01/23 Unknown History elastic bandage 3 10/10/21 02/01/23 Unknown History lidocaine-prilocaine 2.5 %-2.5 % 1 applic topical .COMPLEX 10/10/21 02/01/23 Unknown History topical cream ondansetron HCl 8 mg tablet 8 mg PO TID PRN nausea and vomiting 10/10/21 02/01/23 02/01/23 History promethazine 12.5 mg rectal 12.5 mg FL Q8H PRN nausea and 10/10/21 02/01/23 Unknown History suppository vomiting simethicone 80 mg chewable tablet 80 mg PO DAILY PRN abdominal 10/10/21 02/01/23 Unknown History (Gas Relief (simethicone)) distention sodium phosphates 19 gram-7 118 ml FL DAILY PRN constipation 10/10/21 02/01/23 Unknown History gram/118 mL enema (Fleet Enema) sorbitol 70 % solution 60 ml PO DAILY PRN constipation 10/10/21 02/01/23 Unknown History alprazolam 0.25 mg tablet 0.25 mg PO BID PRN Anxiety 30 days 07/07/22 02/01/23 Unknown Rx #60 tabs carisoprodol 350 mg tablet 350 mg PO BID PRN muscle 07/17/22 02/01/23 Unknown Rx spasticity #60 tabs bumetanide 1 mg tablet 1 mg PO .COMPLEX 01/18/23 02/01/23 Unknown History carvedilol 12.5 mg tablet See Rx Instructions .Route .COMPLEX 01/19/23 02/01/23 Unknown History lactulose 10 gram/15 mL oral 20 g PO BID 01/19/23 02/01/23 02/01/23 History solution (Constulose) loperamide 2 mg tablet 2 - 4 mg PO TID PRN if lomotil is 01/19/23 02/01/23 Unknown History (Anti-Diarrheal (loperamide)) ineffective oxycodone myristate 18 mg capsule 18 mg PO BID 01/19/23 02/01/23 02/01/23 History sprinkle extended release 12hr(DON'T CRUSH) (Xtampza ER) polyethylene glycol 3350 17 17 g PO DAILY PRN Constipation 01/19/23 02/01/23 Unknown History gram/dose oral powder promethazine 25 mg tablet 25 mg PO BID PRN Nausea And 01/19/23 02/01/23 Unknown History Vomiting sevelamer carbonate 800 mg tablet 800 mg PO TID 01/19/23 02/01/23 02/01/23 History simethicone 125 mg capsule See Rx Instructions .Route .COMPLEX 01/19/23 02/01/23 Unknown History carvedilol 12.5 mg tablet See Rx Instructions .Route .COMPLEX 02/01/23 02/01/23 Unknown History diphenoxylate-atropine 2.5 1 tab PO QID PRN Diarrhea 02/01/23 02/01/23 Unknown History mg-0.025 mg tablet (Lomotil) hydrocodone 10 mg-acetaminophen 1 tab PO Q4H PRN Pain 02/01/23 02/01/23 02/01/23 History 325 mg tablet loperamide 2 mg tablet 2 mg PO Q8H PRN Diarrhea 02/01/23 02/01/23 Unknown History naloxone 0.4 mg/mL injection See Rx Instructions .Route .COMPLEX 02/01/23 02/01/23 Unknown History solution witch maia 50 % topical pads 1 pad topical BID PRN Hemorrhoids 02/01/23 02/01/23 Unknown History (Hemorrhoidal (witch maia)) Allergies Allergy/AdvReac Type Severity Reaction Status Date / Time amitriptyline [From Elavil] Allergy Unknown Unknown Verified 02/01/23 16:22 cyclobenzaprine Allergy Unknown Unknown Verified 02/01/23 16:22 [From Flexeril] Penicillins Allergy Unknown Unknown Verified 02/01/23 16:22 pentazocine [From Talwin] Allergy Unknown Unknown Verified 02/01/23 16:22 pregabalin [From Lyrica] Allergy Unknown Unknown Verified 01/27/23 07:42 tizanidine Allergy Unknown Unknown Verified 02/01/23 16:22 doxycycline Allergy Unknown Verified 02/01/23 16:22 morphine Allergy Unknown Verified 02/01/23 16:22 naloxone Allergy Unknown Verified 02/01/23 16:23 Sulfa (Sulfonamide Allergy Unknown Verified 02/01/23 16:23 Antibiotics) sulfamethoxazole AdvReac kidney Verified 01/27/23 07:42 [From Bactrim] trimethoprim [From Bactrim] AdvReac kidney Verified 01/27/23 07:42 PFSH Acute PFSH: Medical History Acetabulum fracture, left Anemia of chronic disease Anxiety and depression DDD (degenerative disc disease) Decubitus ulcer, buttock, right, unstageable Diastolic CHF ESRD (end stage renal disease) Fall Fibromyalgia GERD (gastroesophageal reflux disease) History of breast cancer Previously followed by Dr. Santoyo History of pulmonary embolus (PE) 08/2016 History of stroke 11/14/16 Hyperlipidemia Hypertension Incomplete bladder emptying Internal and external bleeding hemorrhoids Lumbar spinal stenosis Osteoarthritis Paroxysmal A-fib Peritoneal dialysis catheter in place Recurrent UTI Restrictive lung disease Urinary retention Surgical History History of back surgery History of esophagogastroduodenoscopy (EGD) 08/03/17 mild gastritis and duodenitis History of hemiarthroplasty of left hip 11/18/18: Dr. Mendoza History of hysterectomy History of lumpectomy of left breast History of right cataract surgery Family History Other Cancer Denies family history of Anesthesia complication Bleeding disorder Social History Second hand smoke exposure: No Alcohol intake: never Substance/Drug Use: never Adopted: No Caregiver/support person: Yes Lives independently: Yes Housing: Assisted Living Facility Marital status: Marital status details: with dementia Additional social history: FULL CODE DISCUSSED WITH PATIENT ON 02/04/20 Vitals/I&O/Wt Last Vital Signs Temp 98.6 F 02/01/23 14:26 Pulse 76 02/01/23 19:18 Resp 18 02/01/23 19:18 BP 146/62 02/01/23 19:18 Pulse Ox 100 02/01/23 19:18 O2 Del Method Nasal Cannula 02/01/23 18:48 O2 Flow Rate 2 02/01/23 18:48 02/01/23 02/01/23 02/01/23 06:59 14:59 22:59 Intake Total 1000 / 1000 Balance 1000 / 1000 Physical Exam Narrative: AWAKE , ALERT \ NO DISTRESS S1 S2 RRR per report Lungs clear per report no edema Data 02/02/23 05:23 02/02/23 05:23 Micro: Microbiology 02/01/23 17:27 Blood Culture - Preliminary Blood SPECIMEN COLLECTED 02/01/23 17:15 Blood Culture - Preliminary Blood SPECIMEN COLLECTED A&P Assessment and plan (1) ESRD (end stage renal disease) on dialysis: Plan End-stage renal disease: HD today Hypertension: Continue home meds Urinary tract infection: Antibiotics per medicine History of left hip fracture History of decubitus wound Chronic anemia, ESR elevated Patient evaluated using audiovisual cart. Time spent 35 minutes Consult Attestations Medical Necessity Statement: PER MEDICINE Coding Level of Care Code Acute Code for Chg Fwd Diagnoses ESRD (end stage renal disease) on dialysis N18.6; Z99.2
[2023-02-01 20:10] VITALS: BP 128/54; PULSE 86; RESP 18; O2SAT 100
[2023-02-01] MEDS: ondansetron 2 mg/ML SDV 2 mL 4 MG IVP (20:32)
[2023-02-01 21:47] LABS: Thyroid Stimulating Hormone 3.84 uIU/mL (0.27-4.20)
[2023-02-01] MEDS: tamsulosin 0.4 mg Capsule PO (21:59)
[2023-02-01] MEDS: sevelamer 800 mg Tablet PO (22:00)
[2023-02-01] MEDS: meropenem 500 MG in sodium chloride 0.9% (plus) 50 ML 100 MG IV (22:00)
[2023-02-01] MEDS: heparin 5,000 unit/mL INJ 1 mL 5000 UNIT SUBCUT (22:00)
[2023-02-01] MEDS: ALPRAZolam 0.5 mg Tablet 0.25 MG PO (22:13)
[2023-02-01] MEDS: HYDROcodone-acetaminophen 10-325 mg Tablet 1 TAB PO (22:14)
[2023-02-01 22:21] LABS: Hepatitis B Core AB, Total Non-Reactive (Nonreactive); Hepatitis B Surface AB 75.1 (11.5-1000); Hepatitis B Surface Antigen Non-Reactive (Nonreactive)
--- NOTE | 2023-02-01 22:23 | PC.NURSE ---
Patient is going to dialysis at this time, EMLA cream is not available, pharmacist states it has been on back order. transported to dialysis room via bed per radha Lucia.
[2023-02-01 22:45] VITALS: BP 107/42; PULSE 68; RESP 18; TEMP 36.5
[2023-02-01] MEDS: albumin 12.5 GM/50 ML VIAL IV ×2 (23:43→23:44)
[2023-02-01] MEDS: heparin, porcine 1,000 unit/mL INJ 10 mL 1000 UNIT IV (23:45)
[2023-02-02] VITALS (8 sets, daily range): BP systolic 120–139; BP diastolic 52–57; PULSE 69–83; RESP 16–18; TEMP 36.5–37; O2SAT 97–100
--- NOTE | 2023-02-02 | USCV_ITS ---
Milla Thomas Age: 87 Gender: F : 1935 Exam Date: 02/02/2023 14:02 Ordering Phys: Technologist: Juan Carlos Tellez [place]am [place] [facility] [place] Indication: RIGHT HEART STRAIN BP: 132 / 74 HR: 84 Rhythm: Sinus Technical Quality: Adequate MEASUREMENTS (Male / Female) Normal Values 2D ECHO LV Diastolic Diameter PLAX 3.3 cm 4.2 - 5.9 / 3.9 - 5.3 cm LV Systolic Diameter PLAX 2.6 cm IVS Diastolic Thickness 1.1 cm 0.6 - 1.0 / 0.6 - 0.9 cm IVS Systolic Thickness 1.1 cm LVPW Diastolic Thickness 1.4 cm 0.6 - 1.0 / 0.6 - 0.9 cm LVPW Systolic Thickness 1.6 cm LVOT Diameter 2.0 cm LV Ejection Fraction 2D Teich 42.4 % LV Ejection Fraction MOD 2C 64.8 % LV Ejection Fraction 2C AL 64.3 % LA Diameter 4.5 cm IVC Diameter 1.5 cm M-MODE Aortic Annulus Diameter 3.2 cm LA Ao Ratio MM 1.5 MV E Point Septal Separation 0.6 cm DOPPLER AV Peak Velocity 144.7 cm/s LVOT Peak Velocity 141.0 cm/s AV Area Cont Eq vti 3.8 cm squared AV Area Cont Eq pk 3.2 cm squared MV Area PHT 5.0 cm squared Mitral E to A Ratio 1.1 MV E' Velocity 53.5 cm/s Mitral E to MV E' Ratio 9.3 Mitral E to LV E' Lateral Ratio 8.6 Mitral E to LV E' Septal Ratio 10.3 TR Peak Velocity 56.5 cm/s TR Peak Gradient 1.3 mmHg TR Mean Velocity 0.0 cm/s TR Mean Gradient 0.0 mmHg TR Velocity Time Integral 0.0 cm TV Peak E Velocity 132.0 cm/s Right Atrial Pressure 3.0 mmHg Pulmonary Artery Systolic Pressu 4.3 mmHg RV Acceleration Time 0.2 s FINDINGS Left Ventricle Normal left ventricular size and systolic function, EF 68 %. No regional wall motion abnormalities. Right Ventricle The right ventricle is normal in size and function. Right Atrium The right atrium is normal in size. Left Atrium Mildly increased left atrial size. Mitral Valve No gross abnormalities noted. Aortic Valve No gross abnormalities noted Tricuspid Valve Trace tricuspid valve regurgitation. Estimated pulmonary artery peak systolic pressure within normal limit Pulmonic Valve No gross abnormalities noted Pericardium Normal pericardium without effusion. Aorta Normal ascending aorta dimension. IVC Normal inferior vena cava. CONCLUSIONS Normal left ventricular size and systolic function, EF 68 %. No regional wall motion abnormalities. Mildly increased left atrial size. Trace tricuspid valve regurgitation. Possibly normal PA pressure. The PA pressure estimation was difficult due to poor Doppler signals There is no pericardial effusion. There are no intracardiac masses. Dr Lani Baxter MD FACC (Electronically Signed) Final Date: 03 February 2023 13:41 S
--- NOTE | 2023-02-02 01:16 | PC.HD ---
When dressing removed from fistula, yellow drng noted to dressing, no active drainage or redness noted to fistula site.
[2023-02-02 05:52] LABS: Basophils % 0.6 %; Eosinophils # 0.3 10^3/uL (0.0-0.8); Eosinophils % 4.8 %; Hematocrit 24.9 % (37.0-47.0); Lymphocytes # 0.8 10^3/uL (0.8-4.8); Lymphocytes % 14.7 %; Mean Corpuscular HGB Conc 32.1 g/dL (30.0-36.0); Mean Corpuscular Hemoglobin 36.4 pg (28.0-34.0); Mean Corpuscular Volume 113.2 fl (81-99); Mean Platelet Volume 9.5 fL (7.4-10.4); Monocytes # 0.5 10^3/uL (0.2-0.9); Monocytes % 9.7 %; Neutrophils # 3.68 10^3/uL (1.8-7.7); Nucleated Red Blood Cells % 0 %; Platelet Count 173 10^3/cmm (130-400); Red Cell Distribution Width 15.3 % (12.1-15.1); White Blood Count 5.3 10^3/uL (4.0-10.0)
[2023-02-02 06:20] LABS: Blood Urea Nitrogen 37 mg/dL (8-23); C Reactive Protein 69.6 mg/L (0.0-4.9); Calcium 8.3 mg/dL (8.5-10.5); Carbon Dioxide 25 mmol/L (22-29); Chloride 99 mmol/L (98-107); Glucose 89 mg/dL (65-115); Magnesium 1.6 mg/dL (1.7-2.3); Osmolality Calculated 294 mOsm/kg (285-295); Sodium 138 mmol/L (136-145)
[2023-02-02 06:22] LABS: Anion Gap 18.2 (5-19); Potassium 4.2 mmol/L (3.5-5.1)
[2023-02-02] MEDS: cholecalciferol (vitamin D3) 1,000 unit Tablet 25 UNIT PO (08:42)
[2023-02-02] MEDS: calcium acetate 667 mg Capsule PO (08:42)
[2023-02-02] MEDS: b-complex-vitamin c Tablet 1 EACH PO (08:42)
[2023-02-02] MEDS: HYDROcodone-acetaminophen 10-325 mg Tablet 1 TAB PO (08:43)
[2023-02-02] MEDS: sevelamer 800 mg Tablet PO (08:43)
[2023-02-02] MEDS: heparin 5,000 unit/mL INJ 1 mL 5000 UNIT SUBCUT (08:43)
--- NOTE | 2023-02-02 09:02 | CT_ITS ---
WS: [id number] CTA OF THE CHEST WITH PULMONARY EMBOLISM PROTOCOL TECHNIQUE: High-resolution contrast enhanced CTA of the chest with coronal and sagittal reformatted i mages with pulmonary embolism protocol. MIP images are also reviewed. CLINICAL INFORMATION: Hypoxia COMPARISON: None. DLP: 215.[address] scans at [facility] use at least one of these dose optimization techniques: automated e xposure control; mA and/or kV adjustment per patient size (includes targeted exams where dose is matc hed to clinical indication); or iterative reconstruction. FINDINGS: Proximal main pulmonary arteries are normal. Normal segmental and subsegmental pulmonary arteries. No evidence for pulmonary embolus. Moderate chronic emphysematous changes. Small bilateral pleural effusions. Compressive atelectasis in the lung bases. Cardiomegaly. Surgical clips LEFT breast and LEFT axilla. Mild diffuse body wall efrain sarca. Splenic artery calcification. Moderate thoracic kyphosis. Anterior hypertrophic changes thorac ic spine. CT/CT angio chest PE protcl [id number] IMPRESSION: 1. Proximal main pulmonary arteries are normal. No evidence of pulmonary embol us. 2. Small bilateral pleural effusions. Compressive atelectasis in the lung base s. 3. Cardiomegaly.
--- NOTE | 2023-02-02 09:02 | USCV_ITS ---
Milla Thomas Age: 87 Gender: F : 1935 Exam Date: 02/02/2023 09:23 Ordering Phys: Marycarmen Mcrae MD Technologist: Juan Carlos Tellez [place] [facility] [place]: pain swellinig lt leg PROCEDURES: The venous duplex Doppler examination of both lower extremities was performed in the standard fashion. The following venous structures were evaluated: common femoral vein, profunda vein, proximal portion of the greater saphenous vein, superficial femoral vein, and the popliteal vein. Bilaterally, the common femoral, superficial femoral, profunda femoral, popliteal, posterior tibial, greater saphenous veins, and the peroneal trunk were identified and interrogated in the standard fashion. FINDINGS: There is non occluding dvt in the left peronealtrunk and left posterior tibial vein. Normal right lower extremity veins. Preliminary provided to ordering physician at time of exam. CONCLUSIONS There is evidence of acute left lower extremity deep venous thrombosis, nonocclusive peroneal and posterior tibial veins.. Dr. Nuria Garcia DO (Electronically Signed) Final Date: 02 February 2023 09:58 S
--- NOTE | 2023-02-02 11:30 | PM.PN ---
Subjective Subjective: High D-dimer, left leg DVT Start anticoagulating agent My admission orders fell off, I will add all of my orders today Patient endorsing hip pain Added Eliquis loading dose PT requested Patient to continue dialysis Vitals/I&O/Wt Last Vital Signs Temp 97.7 F 02/02/23 02:41 Pulse 69 02/02/23 08:37 Resp 18 02/02/23 08:37 BP 135/57 02/02/23 02:41 Pulse Ox 100 02/02/23 08:37 O2 Del Method Nasal Cannula 02/02/23 08:37 O2 Flow Rate 2 02/02/23 08:37 02/01/23 02/02/23 02/02/23 22:59 06:59 14:59 Intake Total 1000 / 1000 601 / 1601 150 / 150 Output Total 2408 / 2408 Balance 1000 / 1000 -1807 / -807 150 / 150 Weight last 48 hrs Weight 57.1 kg Physical Exam Narrative: Clinically dehydrated Left arm fistula Awake and alert GCS 15 Complaining of hip pain Lower extremity venous stasis dermatitis Mild/trace edema Awake and alert Nonfocal neuro exam Currently on 2 L Data 02/02/23 05:23 02/02/23 05:23 Micro: Microbiology 02/01/23 15:22 Urine Culture - Preliminary Urine,Clean Catch Gram Negative Rods 02/01/23 17:27 Blood Culture - Preliminary Blood SPECIMEN COLLECTED 02/01/23 17:15 Blood Culture - Preliminary Blood SPECIMEN COLLECTED A&P Assessment and plan (1) Urinary tract infection: Qualifiers: Hematuria presence: with hematuria Urinary tract infection type: acute cystitis Qualified Code(s): N30.01 - Acute cystitis with hematuria (2) Low BP: Qualifiers: Hypotension type: unspecified hypotension type Qualified Code(s): I95.9 - Hypotension, unspecified (3) ESRD (end stage renal disease) on dialysis: (4) Hypoxemic respiratory failure, chronic: (5) Chronic diarrhea: (6) UTI (urinary tract infection): Qualifiers: Urinary tract infection type: acute cystitis Hematuria presence: with hematuria Qualified Code(s): N30.01 - Acute cystitis with hematuria (7) Lives in assisted living facility: (8) Anemia: Plan Fatigue and lethargy related to multiple comorbid conditions UTI: Start ceftriaxone and nitrofurantoin Previous history of Enterococcus faecium End-stage renal disease continue dialysis She will likely need another dialysis session after contrast High D-dimer, acute DVT of left leg Provoked likely Start Eliquis loading dose Will request echo and troponins Chronic diarrhea: We will like to rule out C. difficile again Hypotension responded very well to IV fluid hydration suspicion is low for massive PE Recent hip fracture which is being managed medically, left acetabular fracture Will request PT Full code Cardiac/renal diet Eliquis started today Plan to discharge her back to assisted living Chronic hypoxia currently on 2L Attestations Medical Necessity Statement*: Continue medical management Diagnoses Urinary tract infection N30.01 Hematuria presence: with hematuria Urinary tract infection type: acute cystitis Low BP I95.9 Hypotension type: unspecified hypotension type ESRD (end stage renal disease) on dialysis N18.6; Z99.2 Hypoxemic respiratory failure, chronic J96.11 Chronic diarrhea K52.9 Lives in assisted living facility Z59.3 Anemia D64.9
--- NOTE | 2023-02-02 11:38 | ECG_ITS ---
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 Measurements Intervals [place] Rate: 82 P: 67 ID: [id number] QRS: 23 QRSD: 89 T: 20 QT: 380 QTc: 445 Interpretive Statements SINUS RHYTHM WITH FIRST DEGREE AV BLOCK Compared to ECG 02/01/2023 14:57:44 No significant changes Electronically Signed On 02-02-2023 13:59:09 CDT by Cristhian Harden M.D. https://[employer].MindCare Solutionspatient's [facility] of smith countyWeibucrystal clinic orth[facility].[employer]/store/OM/[id number]/ecg/[id number]
[2023-02-02] MEDS: oxyCODONE 5 mg IR Tab/Cap PO ×2 (12:14→22:19)
[2023-02-02 12:37] LABS: Troponin(5th) Baseline 184 ng/L (0-10)
[2023-02-02] MEDS: iohexol 350 mg/mL 500 mL Btl (per mL) IV (12:43)
--- NOTE | 2023-02-02 13:53 | ECG_ITS ---
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 Measurements Intervals [place] Rate: 83 P: 65 CO: 266 QRS: 30 QRSD: 93 T: 25 QT: 375 QTc: 442 Interpretive Statements SINUS RHYTHM WITH FIRST DEGREE AV BLOCK Compared to ECG 02/02/2023 12:03:52 No significant changes Electronically Signed On 02-02-2023 14:00:44 CDT by Cristhian Harden M.D. [email or web address].AO[facility] Medicalneshoba county general hospitalIntuitive Biosciencesadena [facility] system.[employer]/store/OM/[id number]/[id number]
[2023-02-02 14:31] LABS: Troponin 5 2HR Delta -5.2 ABS# (0-10)
[2023-02-02 14:33] LABS: Troponin 5 2HR 178.8 ng/L (0-10)
[2023-02-02] MEDS: HYDROmorphone 1 mg/mL INJ 1 mL 0.4 MG IVP (15:39)
[2023-02-02] MEDS: heparin drip 25,000 UNIT/500 ML PREMIX 16 UNIT IV (15:46)
--- NOTE | 2023-02-02 17:31 | ECG_ITS ---
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 Measurements Intervals [place] Rate: 83 P: 71 VA: 239 QRS: 25 QRSD: 87 T: 44 QT: 362 QTc: 426 Interpretive Statements SINUS RHYTHM WITH FIRST DEGREE AV BLOCK WITH OCCASIONAL SUPRAVENTRICULAR PREMATURE COMPLEXES Compared to ECG 02/02/2023 13:53:12 No significant changes Electronically Signed On 02-02-2023 23:39:55 CDT by Cristhian Harden M.D. [email or web address] Child Toysgeorgiana medical centerGet Inkettering health preble.[employer]/store/OM/[id number]/[id number]
[2023-02-02] MEDS: nitrofurantoin SR (BID) 100 mg Capsule PO (18:15)
[2023-02-02 19:28] LABS: Troponin 5 6HR Delta 6.5 ng/L (0-12)
[2023-02-02 19:31] LABS: Troponin 5 6HR 190.5 ng/L (0-10)
--- NOTE | 2023-02-02 20:15 | PM.PN ---
Subjective Subjective: no new complaints Medications: Reviewed: Yes Vitals/I&O/Wt Last Vital Signs Temp 98.6 F 02/02/23 13:42 Pulse 83 02/02/23 13:42 Resp 18 02/02/23 15:39 BP 120/52 02/02/23 13:42 Pulse Ox 97 02/02/23 15:39 O2 Del Method Room Air 02/02/23 13:42 O2 Flow Rate 2 02/02/23 08:37 02/02/23 02/02/23 02/02/23 06:59 14:59 22:59 Intake Total 601 / 1601 510 / 510 Output Total 2408 / 2408 200 / 200 Balance -1807 / -807 510 / 510 -200 / 310 Weight last 48 hrs Weight 57.1 kg Physical Exam Narrative: Patient alert no acute distress, on 2 L oxygen by nasal cannula S1-S2 regular rate and rhythm per report Lungs clear per report No pedal edema Data 02/02/23 05:23 02/02/23 05:23 Micro: Microbiology 02/01/23 17:27 Blood Culture - Preliminary Blood NEGATIVE TO DATE 02/01/23 17:15 Blood Culture - Preliminary Blood NEGATIVE TO DATE 02/02/23 11:00 C.difficile Toxin B Gene (PCR) - Final Stool Routine Collection 02/01/23 15:22 Urine Culture - Preliminary Urine,Clean Catch Gram Negative Rods A&P Assessment and plan (1) ESRD (end stage renal disease) on dialysis: Plan End-stage renal disease: HD per MWF schedule Hypertension: Continue home meds Urinary tract infection: Antibiotics per medicine History of left hip fracture History of decubitus wound Chronic anemia, ESR elevated Patient evaluated using audiovisual cart. Time spent 35 minutes Attestations Medical Necessity Statement*: per medicine Coding Level of Care Code Acute Code for Chg Fwd Diagnoses ESRD (end stage renal disease) on dialysis N18.6; Z99.2
[2023-02-02 22:27] LABS: Partial Thromboplastin Time 66.8 SECONDS (23.9-36.7)
[2023-02-02] MEDS: ALPRAZolam 0.5 mg Tablet 0.25 MG PO (22:51)
[2023-02-02] MEDS: apixaban 5 mg Tablet 10 MG PO (22:52)
[2023-02-03] VITALS (10 sets, daily range): BP systolic 109–156; BP diastolic 46–64; PULSE 65–86; RESP 15–18; TEMP 36.6–37; O2SAT 97–99
[2023-02-03 05:19] LABS: Basophils % 0.5 %; Eosinophils # 0.2 10^3/uL (0.0-0.8); Eosinophils % 2.9 %; Hemoglobin 8.1 g/dL (11.5-15.3); Lymphocytes # 0.8 10^3/uL (0.8-4.8); Lymphocytes % 12.8 %; Mean Corpuscular HGB Conc 31.2 g/dL (30.0-36.0); Mean Corpuscular Volume 115.6 fl (81-99); Mean Platelet Volume 9.5 fL (7.4-10.4); Monocytes # 0.6 10^3/uL (0.2-0.9); Monocytes % 8.7 %; Neutrophils # 4.84 10^3/uL (1.8-7.7); Neutrophils % 74.8 %; Nucleated Red Blood Cells % 0 %; Platelet Count 182 10^3/cmm (130-400); Red Blood Count 2.25 10^6/uL (4.1-5.3); Red Cell Distribution Width 15.2 % (12.1-15.1); White Blood Count 6.5 10^3/uL (4.0-10.0)
[2023-02-03 05:38] LABS: C Reactive Protein 170.6 mg/L (0.0-4.9); Chloride 108 mmol/L (98-107); Potassium 4.8 mmol/L (3.5-5.1); Sodium 148 mmol/L (136-145)
[2023-02-03 06:02] LABS: Anion Gap 21.8 (5-19); Blood Urea Nitrogen 48 mg/dL (8-23); Calcium 8.7 mg/dL (8.5-10.5); Carbon Dioxide 23 mmol/L (22-29); Glucose 87 mg/dL (65-115); Magnesium 1.6 mg/dL (1.7-2.3); Osmolality Calculated 318 mOsm/kg (285-295); Phosphorus 4.4 mg/dL (2.5-4.5)
--- NOTE | 2023-02-03 07:43 | PC.HD ---
Addendum entered by Sarah Plata RN 02/03/23 09:03: Primary RN removed IV from left arm during dialysis. Original Note: Upon pre-dialysis patient access assessment, an IV was noted to have been placed on her left arm. Patient's primary RN was informed.
--- NOTE | 2023-02-03 09:53 | PM.PN ---
Subjective Subjective: no new complaints Medications: Reviewed: Yes Vitals/I&O/Wt Last Vital Signs Temp 98.2 F 02/03/23 07:42 Pulse 70 02/03/23 07:42 Resp 16 02/03/23 07:42 BP 156/46 02/03/23 07:42 Pulse Ox 99 02/03/23 03:46 O2 Del Method Nasal Cannula 02/03/23 08:00 O2 Flow Rate 2 02/03/23 08:00 02/02/23 02/03/23 02/03/23 22:59 06:59 14:59 Intake Total 200 / 710 Output Total 200 / 200 Balance -200 / 310 200 / 510 Weight last 48 hrs Weight 57.1 kg Physical Exam Narrative: Patient alert no acute distress, on 2 L oxygen by nasal cannula S1-S2 regular rate and rhythm per report Lungs clear per report No pedal edema Data 02/03/23 05:06 02/03/23 05:06 Micro: Microbiology 02/01/23 17:27 Blood Culture - Preliminary Blood NEGATIVE TO DATE 02/01/23 17:15 Blood Culture - Preliminary Blood NEGATIVE TO DATE 02/02/23 11:00 C.difficile Toxin B Gene (PCR) - Final Stool Routine Collection 02/01/23 15:22 Urine Culture - Preliminary Urine,Clean Catch Gram Negative Rods A&P Assessment and plan (1) ESRD (end stage renal disease) on dialysis: Plan End-stage renal disease: HD per MWF schedule ,HD today Hypertension: Continue home meds Urinary tract infection: Antibiotics per medicine History of left hip fracture History of decubitus wound Chronic anemia, МАРИНА when Patient evaluated using audiovisual cart. Time spent 35 minutes Attestations Medical Necessity Statement*: per medicine Coding Level of Care Code Acute Code for Chg Fwd Diagnoses ESRD (end stage renal disease) on dialysis N18.6; Z99.2
--- NOTE | 2023-02-03 11:08 | P.PN_ITS ---
Subjective Subjective: Trend troponin noted No active chest pain or shortness of breath She is getting dialyzed No PE I will request stress test Vitals/I&O/Wt Last Vital Signs Temp 98.2 F 02/03/23 07:42 Pulse 70 02/03/23 07:42 Resp 16 02/03/23 07:42 BP 156/46 02/03/23 07:42 Pulse Ox 99 02/03/23 03:46 O2 Del Method Nasal Cannula 02/03/23 08:00 O2 Flow Rate 2 02/03/23 08:00 02/02/23 02/03/23 02/03/23 22:59 06:59 14:59 Intake Total 200 / 710 Output Total 200 / 200 Balance -200 / 310 200 / 510 Weight last 48 hrs Weight 57.1 kg Physical Exam Narrative: No significant signs of anasarca GCS 15 S1, S2 2 L Pleasant and cooperative Nonfocal neuro exam Venous stasis dermatitis Fatigue and lethargic Abdomen soft Left arm fistula Data 02/03/23 05:06 02/03/23 05:06 Micro: Microbiology 02/01/23 15:22 Urine Culture - Final Urine,Clean Catch Enterobacter aerogenes 02/01/23 17:27 Blood Culture - Preliminary Blood NEGATIVE TO DATE 02/01/23 17:15 Blood Culture - Preliminary Blood NEGATIVE TO DATE 02/02/23 11:00 C.difficile Toxin B Gene (PCR) - Final Stool Routine Collection A&P Assessment and plan (1) Urinary tract infection: Qualifiers: Hematuria presence: with hematuria Urinary tract infection type: acute cystitis Qualified Code(s): N30.01 - Acute cystitis with hematuria (2) Low BP: Qualifiers: Hypotension type: unspecified hypotension type Qualified Code(s): I95.9 - Hypotension, unspecified (3) ESRD (end stage renal disease) on dialysis: (4) Hypoxemic respiratory failure, chronic: (5) Chronic diarrhea: (6) Lives in assisted living facility: (7) Non-STEMI (non-ST elevated myocardial infarction): Plan Non-STEMI Type II? Due to underlying renal disease No PE No active chest pain Will require stress test on Monday Echo report is pending Patient is chest pain-free Currently on heparin drip As per the family patient was bleeding a lot when she was on blood thinner last time Anemia of chronic disease: Stable Chronic hypoxia requiring 2 L Hip fracture: Opioids for pain management Magnesium: Repleted End-stage renal disease nephro on board full code renal diet Attestations 2 Medical Necessity Statement*: Stress test on Monday Diagnoses Urinary tract infection N30.01 Hematuria presence: with hematuria Urinary tract infection type: acute cystitis Low BP I95.9 Hypotension type: unspecified hypotension type ESRD (end stage renal disease) on dialysis N18.6; Z99.2 Hypoxemic respiratory failure, chronic J96.11 Chronic diarrhea K52.9 Lives in assisted living facility Z59.3 Non-STEMI (non-ST elevated myocardial infarction) I21.4
[2023-02-03] MEDS: cefTRIAXone 1,000 MG in sodium chloride 0.9% (plus) 50 ML 100 MG IV (12:09)
[2023-02-03] MEDS: magnesium oxide 400 mg tablet PO (12:09)
[2023-02-03] MEDS: morphine IR 15 mg Tablet PO (12:12)
[2023-02-03] MEDS: nitrofurantoin SR (BID) 100 mg Capsule PO ×2 (12:13→17:30)
[2023-02-03] MEDS: oxyCODONE 5 mg IR Tab/Cap PO ×2 (16:24→23:00)
[2023-02-03] MEDS: atorvastatin 40 mg Tablet PO (21:09)
[2023-02-03 21:18] LABS: Partial Thromboplastin Time 42.4 SECONDS (23.9-36.7)
[2023-02-03] MEDS: ALPRAZolam 0.5 mg Tablet 0.25 MG PO (23:00)
[2023-02-04] VITALS (11 sets, daily range): BP systolic 114–146; BP diastolic 45–79; PULSE 60–98; RESP 14–18; TEMP 36.5–36.9; O2SAT 94–100
[2023-02-04 03:45] LABS: Basophils % 0.5 %; Eosinophils # 0.2 10^3/uL (0.0-0.8); Eosinophils % 3.3 %; Hematocrit 24.7 % (37.0-47.0); Hemoglobin 7.9 g/dL (11.5-15.3); Lymphocytes # 0.8 10^3/uL (0.8-4.8); Lymphocytes % 12.1 %; Mean Corpuscular Hemoglobin 36.7 pg (28.0-34.0); Mean Corpuscular Volume 114.9 fl (81-99); Mean Platelet Volume 9.5 fL (7.4-10.4); Monocytes # 0.6 10^3/uL (0.2-0.9); Monocytes % 8.9 %; Neutrophils # 4.71 10^3/uL (1.8-7.7); Neutrophils % 74.9 %; Nucleated Red Blood Cells % 0 %; Platelet Count 177 10^3/cmm (130-400); Red Blood Count 2.15 10^6/uL (4.1-5.3); Red Cell Distribution Width 15.1 % (12.1-15.1); White Blood Count 6.3 10^3/uL (4.0-10.0)
[2023-02-04 04:08] LABS: Partial Thromboplastin Time 83.5 SECONDS (23.9-36.7)
[2023-02-04 04:39] LABS: Anion Gap 17.6 (5-19); Blood Urea Nitrogen 25 mg/dL (8-23); Calcium 8.7 mg/dL (8.5-10.5); Carbon Dioxide 25 mmol/L (22-29); Chloride 97 mmol/L (98-107); Glucose 84 mg/dL (65-115); Osmolality Calculated 286 mOsm/kg (285-295); Potassium 3.6 mmol/L (3.5-5.1); Sodium 136 mmol/L (136-145)
[2023-02-04 04:44] LABS: Magnesium 1.6 mg/dL (1.7-2.3)
--- NOTE | 2023-02-04 06:59 | P.PN_ITS ---
Subjective Subjective: Echo report is still pending Patient is waiting for stress test on Monday No overnight events Electrolytes will be replenished Vitals/I&O/Wt Last Vital Signs Temp 98.2 F 02/04/23 04:00 Pulse 64 02/04/23 04:00 Resp 14 02/04/23 04:00 BP 114/69 02/04/23 04:00 Pulse Ox 94 02/04/23 04:00 O2 Del Method Room Air 02/04/23 04:00 O2 Flow Rate 2 02/03/23 20:11 02/03/23 02/03/23 02/04/23 14:59 22:59 06:59 Intake Total 640 / 640 160 / 800 123.3 / 923.3 Output Total 2850 / 2850 Balance -2210 / -2210 160 / -2050 123.3 / -1926.7 Weight last 48 hrs Weight 54.3 kg Physical Exam Narrative: Patient on 2 L of oxygen Nonfocal neuro exam GCS 15 No signs of fluid overload No acute distress Pleasant and cooperative Abdomen soft Left arm fistula Data 02/04/23 03:16 02/04/23 03:16 Micro: Microbiology 02/01/23 15:22 Urine Culture - Final Urine,Clean Catch Enterobacter aerogenes A&P Assessment and plan (1) Urinary tract infection: Qualifiers: Hematuria presence: with hematuria Urinary tract infection type: acute cystitis Qualified Code(s): N30.01 - Acute cystitis with hematuria (2) Non-STEMI (non-ST elevated myocardial infarction): (3) Low BP: Qualifiers: Hypotension type: unspecified hypotension type Qualified Code(s): I95.9 - Hypotension, unspecified (4) ESRD (end stage renal disease) on dialysis: (5) Hypoxemic respiratory failure, chronic: (6) Chronic diarrhea: (7) UTI (urinary tract infection): Qualifiers: Urinary tract infection type: acute cystitis Hematuria presence: with hematuria Qualified Code(s): N30.01 - Acute cystitis with hematuria Plan UTI: Enterobacter Sensitive to meropenem's and levofloxacin We will discharge on levofloxacin End-stage renal disease nephro on board Hypotension: Improved Non-STEMI: Started heparin she also has left leg DVT No signs of PE Plan for stress test Chest pain-free Echo is pending Full code Renal diet Patient to finish 48 hours on heparin and then I will switch her to Eliquis loading dose Attestations Medical Necessity Statement*: Patient has to wait till Monday to get stress test Diagnoses Urinary tract infection N30.01 Hematuria presence: with hematuria Urinary tract infection type: acute cystitis Non-STEMI (non-ST elevated myocardial infarction) I21.4 Low BP I95.9 Hypotension type: unspecified hypotension type ESRD (end stage renal disease) on dialysis N18.6; Z99.2 Hypoxemic respiratory failure, chronic J96.11 Chronic diarrhea K52.9
[2023-02-04] MEDS: clopidogrel 75 mg Tablet PO (08:12)
[2023-02-04] MEDS: aspirin 81 mg EC Tablet PO (08:12)
[2023-02-04] MEDS: magnesium oxide 400 mg tablet PO (08:13)
[2023-02-04] MEDS: nitrofurantoin SR (BID) 100 mg Capsule PO ×2 (08:13→17:28)
[2023-02-04] MEDS: oxyCODONE 5 mg IR Tab/Cap PO ×2 (08:15→14:17)
[2023-02-04] MEDS: cefTRIAXone 1,000 MG in sodium chloride 0.9% (plus) 50 ML 100 MG IV (11:05)
--- NOTE | 2023-02-04 11:21 | PM.PN ---
Subjective Subjective: Reports being tired today otherwise denies any other complaints Medications: Reviewed: Yes Vitals/I&O/Wt Last Vital Signs Temp 98.2 F 02/04/23 07:30 Pulse 71 02/04/23 09:24 Resp 16 02/04/23 09:24 BP 134/62 02/04/23 07:30 Pulse Ox 94 02/04/23 09:24 O2 Del Method Room Air 02/04/23 09:24 O2 Flow Rate 2 02/04/23 08:00 02/03/23 02/04/23 02/04/23 22:59 06:59 14:59 Intake Total 160 / 800 123.3 / 923.3 350 / 350 Balance 160 / -2050 123.3 / -1926.7 350 / 350 Weight last 48 hrs Weight 54.3 kg Physical Exam Narrative: Patient alert no acute distress, on 2 L oxygen by nasal cannula S1-S2 regular rate and rhythm per report Lungs clear per report No pedal edema Data 02/04/23 03:16 02/04/23 03:16 Micro: Microbiology 02/01/23 15:22 Urine Culture - Final Urine,Clean Catch Enterobacter aerogenes A&P Assessment and plan (1) ESRD (end stage renal disease) on dialysis: Plan End-stage renal disease: HD per MW schedule , next HD on Monday Hypertension: Continue home meds Urinary tract infection: Antibiotics per medicine History of left hip fracture History of decubitus wound Chronic anemia, МАРИНА when Patient evaluated using audiovisual cart. Time spent 35 minutes Attestations Medical Necessity Statement*: Per medicine Coding Level of Care Code Acute Code for g Fwd Diagnoses ESRD (end stage renal disease) on dialysis N18.6; Z99.2
[2023-02-04] MEDS: heparin 5,000 unit/mL INJ 1 mL IV (12:01)
[2023-02-04 16:58] LABS: Partial Thromboplastin Time 55.4 SECONDS (23.9-36.7)
[2023-02-04] MEDS: apixaban 5 mg Tablet 10 MG PO (21:15)
[2023-02-04] MEDS: atorvastatin 40 mg Tablet PO (21:15)
[2023-02-05] VITALS (11 sets, daily range): BP systolic 93–148; BP diastolic 32–76; PULSE 57–65; RESP 16–18; TEMP 36.6–37.1; O2SAT 92–98
[2023-02-05 04:09] LABS: Anion Gap 16.1 (5-19); Blood Urea Nitrogen 35 mg/dL (8-23); Calcium 8.9 mg/dL (8.5-10.5); Carbon Dioxide 28 mmol/L (22-29); Chloride 100 mmol/L (98-107); Glucose 94 mg/dL (65-115); Osmolality Calculated 298 mOsm/kg (285-295); Potassium 4.1 mmol/L (3.5-5.1); Sodium 140 mmol/L (136-145)
[2023-02-05] MEDS: clopidogrel 75 mg Tablet PO (08:59)
[2023-02-05] MEDS: aspirin 81 mg EC Tablet PO (08:59)
[2023-02-05] MEDS: nitrofurantoin SR (BID) 100 mg Capsule PO (08:59)
[2023-02-05] MEDS: cefTRIAXone 1,000 MG in sodium chloride 0.9% (plus) 50 ML 100 MG IV (09:00)
[2023-02-05] MEDS: apixaban 5 mg Tablet 10 MG PO ×2 (09:31→21:33)
[2023-02-05] MEDS: oxyCODONE 5 mg IR Tab/Cap PO ×2 (09:31→16:58)
--- NOTE | 2023-02-05 10:30 | PC.SOCIAL ---
Pg 2 IMM Explained to pt Pg 2 IMM. No questions voiced. Provided pt a copy. Initialed, dated, & timed a copy & placed in chart.
[2023-02-05] MEDS: morphine IR 15 mg Tablet PO ×2 (10:40→21:34)
--- NOTE | 2023-02-05 11:39 | PM.PN ---
Subjective Subjective: no new compliants Medications: Reviewed: Yes Vitals/I&O/Wt Last Vital Signs Temp 97.9 F 02/05/23 11:33 Pulse 62 02/05/23 11:33 Resp 18 02/05/23 11:33 BP 132/63 02/05/23 11:33 Pulse Ox 93 02/05/23 11:33 O2 Del Method Room Air 02/05/23 11:33 O2 Flow Rate 2 02/05/23 09:40 02/04/23 02/05/23 02/05/23 22:59 06:59 14:59 Intake Total 526.7 / 1046.7 530 / 530 Balance 526.7 / 1046.7 530 / 530 Weight last 48 hrs Weight 54.3 kg Data 02/04/23 03:16 02/05/23 01:58 A&P Assessment and plan (1) ESRD (end stage renal disease) on dialysis: Plan End-stage renal disease: HD per MWF schedule , next HD on Monday Hypertension: Continue home meds Urinary tract infection: Antibiotics per medicine History of left hip fracture History of decubitus wound Chronic anemia, ordered МАРИНА Patient evaluated using audiovisual cart. Time spent 35 minutes Attestations Medical Necessity Statement*: per medicine Coding Level of Care Code Acute Code for Chg Fwd Diagnoses ESRD (end stage renal disease) on dialysis N18.6; Z99.2
--- NOTE | 2023-02-05 12:51 | P.PN_ITS ---
Subjective Subjective: No events Patient is eating breakfast Off oxygen Going for stress test tomorrow morning Patient stating that her stool is semisolid Vitals/I&O/Wt Last Vital Signs Temp 97.9 F 02/05/23 11:33 Pulse 62 02/05/23 11:33 Resp 18 02/05/23 11:33 BP 132/63 02/05/23 11:33 Pulse Ox 93 02/05/23 11:33 O2 Del Method Room Air 02/05/23 11:33 O2 Flow Rate 2 02/05/23 09:40 02/04/23 02/05/23 02/05/23 22:59 06:59 14:59 Intake Total 526.7 / 1046.7 1010 / 1010 Balance 526.7 / 1046.7 1010 / 1010 Physical Exam Narrative: Eating breakfast Off oxygen No overnight events GCS 15 Nonfocal neuro exam Looks euvolemic Pleasant and cooperative S1, S2 Data 02/04/23 03:16 02/05/23 01:58 A&P Assessment and plan (1) Non-STEMI (non-ST elevated myocardial infarction): (2) Urinary tract infection: Qualifiers: Hematuria presence: with hematuria Urinary tract infection type: acute cystitis Qualified Code(s): N30.01 - Acute cystitis with hematuria (3) Low BP: Qualifiers: Hypotension type: unspecified hypotension type Qualified Code(s): I95.9 - Hypotension, unspecified (4) ESRD (end stage renal disease) on dialysis: (5) Hypoxemic respiratory failure, chronic: (6) Chronic diarrhea: Plan Continue loading dose of Eliquis for left leg DVT Non-STEMI: Stress test tomorrow Chest pain-free Concern related to type II DC UTI: Improved Change to p.o. antibiotics Plan to discharge to assisted if stress test is negative Attestations Medical Necessity Statement*: Stress tomorrow Diagnoses Non-STEMI (non-ST elevated myocardial infarction) I21.4 Urinary tract infection N30.01 Hematuria presence: with hematuria Urinary tract infection type: acute cystitis Low BP I95.9 Hypotension type: unspecified hypotension type ESRD (end stage renal disease) on dialysis N18.6; Z99.2 Hypoxemic respiratory failure, chronic J96.11 Chronic diarrhea K52.9
--- NOTE | 2023-02-05 12:53 | ECG_ITS ---
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 Interpretive Statements NAME OF STUDY: LEXISCAN SESTAMIBI STRESS TEST INDICATION: NSTEMI PROCEDURE: At the baseline, the blood pressure was 145/58 mmHg with a heart rate of 64 bpm and oxygen saturation 90%. The electrocardiogram showed sinus rhythm, normal axis with nonspecific T wave inversion in lead III. The Lexiscan was infused over a period of 20 seconds. A total of 0.4 milligrams of Lexiscan was infused. The stress phase was continued for a total of 5 minutes. Heart rate at the end of the stress phase was 88 bpm, oxygen saturation 94% with a blood pressure 139/54 mmHg. The EKG at the peak infusion revealed no significant ST-T wave changes. Sestamibi was injected 20 seconds after the Lexiscan infusion. Blood pressure at the end of the recovery phase was 135/70 mmHg, oxygen saturation 92% with a heart rate of 74 beats per minute. CONCLUSION: 1. No significant EKG changes with the LexiScan infusion. 2. No LexiScan induced chest pain or cardiac arrhythmia. 3. Normal blood pressure and heart rate response. 4. Sestamibi/sestamibi perfusion scan pending; see separate report. Electronically Signed On 02-07-2023 12:01:59 CDT by Jessica Blackmon M.D. [email or web address]/[id number]
[2023-02-05] MEDS: levETIRAcetam 500 mg Tablet PO (15:11)
[2023-02-05] MEDS: ALPRAZolam 0.5 mg Tablet 0.25 MG PO (21:34)
[2023-02-05] MEDS: atorvastatin 40 mg Tablet PO (21:34)
[2023-02-06] VITALS (12 sets, daily range): BP systolic 98–149; BP diastolic 44–72; PULSE 63–80; RESP 14–18; TEMP 36.4–37.1; O2SAT 90–96
--- NOTE | 2023-02-06 09:12 | PM.PN ---
Subjective Subjective: getting HD Medications: Reviewed: Yes Vitals/I&O/Wt Last Vital Signs Temp 98.1 F 02/06/23 07:43 Pulse 66 02/06/23 08:00 Resp 16 02/06/23 08:00 BP 100/44 02/06/23 07:43 Pulse Ox 93 02/06/23 08:00 O2 Del Method Room Air 02/06/23 08:00 O2 Flow Rate 2 02/05/23 09:40 Physical Exam Narrative: Patient alert no acute distress, on 2 L oxygen by nasal cannula S1-S2 regular rate and rhythm per report Lungs clear per report No pedal edema Data 02/04/23 03:16 02/05/23 01:58 A&P Assessment and plan (1) ESRD (end stage renal disease) on dialysis: Plan End-stage renal disease: HD per MWF schedule , HD today Hypertension: Continue home meds Urinary tract infection: Antibiotics per medicine History of left hip fracture History of decubitus wound Chronic anemia, ordered МАРИНА Patient evaluated using audiovisual cart. Time spent 35 minutes Attestations Medical Necessity Statement*: per medicine Coding Level of Care Code Acute Code for Chg Fwd Diagnoses ESRD (end stage renal disease) on dialysis N18.6; Z99.2
[2023-02-06] MEDS: epoetin alfa 1000 Unit/0.05 mL (ESRD) 20000 UNIT SUBCUT (10:29)
[2023-02-06] MEDS: apixaban 5 mg Tablet 10 MG PO ×2 (11:26→21:06)
[2023-02-06] MEDS: clopidogrel 75 mg Tablet PO (11:26)
[2023-02-06] MEDS: albumin 12.5 GM/50 ML VIAL IV ×2 (11:32→11:33)
--- NOTE | 2023-02-06 12:15 | PM.PN ---
Subjective Subjective: Low blood pressure after dialysis I was told that stress test schedule is full she wanted to get her stress test today I have asked nurse to take blood pressure again after 30 minutes and give her 250 mL bolus if blood pressure is around 90s, she is asymptomatic Vitals/I&O/Wt Last Vital Signs Temp 98.4 F 02/06/23 12:10 Pulse 66 02/06/23 12:10 Resp 16 02/06/23 12:10 BP 106/54 02/06/23 12:10 Pulse Ox 91 02/06/23 11:39 O2 Del Method Nasal Cannula 02/06/23 11:39 O2 Flow Rate 2 02/05/23 09:40 02/05/23 02/06/23 02/06/23 22:59 06:59 14:59 Intake Total 400 / 400 Output Total 1666 / 1666 Balance -1266 / -1266 Weight last 48 hrs Weight 51.8 kg Physical Exam Narrative: Clinically does not look fluid overloaded Currently on room air Nonfocal neuro exam GCS 15 Pleasant and cooperative Abdomen soft Lower extremity skin wrinkling Data 02/04/23 03:16 02/05/23 01:58 A&P Assessment and plan (1) Non-STEMI (non-ST elevated myocardial infarction): (2) Urinary tract infection: Qualifiers: Hematuria presence: with hematuria Urinary tract infection type: acute cystitis Qualified Code(s): N30.01 - Acute cystitis with hematuria (3) Low BP: Qualifiers: Hypotension type: unspecified hypotension type Qualified Code(s): I95.9 - Hypotension, unspecified (4) ESRD (end stage renal disease) on dialysis: (5) Hypoxemic respiratory failure, chronic: (6) Lives in assisted living facility: (7) Chronic diarrhea: (8) Diastolic CHF: Plan Non-STEMI: Troponin leak is noted with underlying chronic kidney disease Plan for stress test today No active chest pain Left leg DVT continue Eliquis Hypotension after dialysis We will give a small 250 ml bolus patient is asymptomatic UTI: Transition to p.o. antibiotics Chronic diarrhea: No C. difficile Responded to Imodium Patient will go back to [facility] Hip fracture continue opioids Full code Renal diet Attestations Medical Necessity Statement*: Continue medical management Diagnoses Non-STEMI (non-ST elevated myocardial infarction) I21.4 Urinary tract infection N30.01 Hematuria presence: with hematuria Urinary tract infection type: acute cystitis Low BP I95.9 Hypotension type: unspecified hypotension type ESRD (end stage renal disease) on dialysis N18.6; Z99.2 Hypoxemic respiratory failure, chronic J96.11 Lives in assisted living facility Z59.3 Chronic diarrhea K52.9 Diastolic CHF I50.30
[2023-02-06] MEDS: morphine IR 15 mg Tablet PO (12:34)
[2023-02-06] MEDS: oxyCODONE 5 mg IR Tab/Cap PO (16:27)
[2023-02-06] MEDS: atorvastatin 40 mg Tablet PO (21:06)
[2023-02-07] VITALS: BP 128/65; PULSE 78; RESP 17; TEMP 37.2; O2SAT 94
[2023-02-07 04:00] VITALS: BP 125/56; PULSE 64; RESP 16; TEMP 36.9; O2SAT 92
--- NOTE | 2023-02-07 06:30 | NMCV_ITS ---
NM itzel perf SPECT r/s* [id number] Milla Thomas Age: 87 Gender: F : 1935 Exam Date: 02/07/2023 06:17 Ordering Phys: Marycarmen Mcrae MD Technologist: NATHAN Ghosh Exam Location: [facility] Indications: CHEST PAIN STRESS TEST Please see separate stress test report in [facility] for full findings IMAGE PROTOCOL Rest/Stress 1 Lexiscan Day Radiopharmaceutical Dose (mCi) Administration Site Administered by Rest: Tc-99m 10.2 IV NATHAN Walker Sestamibi Stress:Tc-99m 32.1 IV NATHAN Walker Sestamibi Rest: 07-Feb-2023 60 Discovery 630 Stress: 07-Feb-2023 30 Discovery 630 0.4mg Lexiscan. Supine position only as patient was unable to lay prone. SPECT RESULTS Technical Quality: Excellent Raw Data Analysis: Normal Image Corrections: No attenuation or motion correction applied Summed Stress Score: 6 Summed Rest Score: 8 Summed Difference Score: 1 PERFUSION FINDINGS Small size perfusion abnormality of mild severity of mid to apical inferior, mid inferolateral and apical lateral pepper on rest images with somewhat improved tracer uptake on stress images. Likely suggestive of attenuation artifact FUNCTIONAL RESULTS (calculated via Gated SPECT) Stress Image LV EF (%): 59 Stress EDV (mL):90 TID: 1.1 Stress ESV (mL):37 FUNCTIONAL FINDINGS: The left ventricle is normal in size. Transient Ischemia Dilatation of 1.1. The left ventricular ejection fraction is normal with a value of 59%. There is normal left ventricular wall thickening. IMPRESSIONS 1. Small sized paradoxical perfusion abnormality of mild severity of mid to apical inferior, mid inferolateral and apical lateral pepper. This may represent attenuation artifact or old myocardial infarction in right coronary artery/circumflex artery territory. 2. Overall left ventricular systolic function is normal without regional wall motion abnormalities, LVEF=59%. 3. EKG portion of the study will be reported separately. 4. No coronary ischemia based on the study. Jessica Blackmon MD (Electronically Signed) Final Date: 07 February 2023 12:22 S
[2023-02-07] MEDS: regadenoson 0.4 Mg/5 ml Syringe IVP (07:14)
[2023-02-07] MEDS: ondansetron 2 mg/ML SDV 2 mL 4 MG IVP (07:25)
[2023-02-07] MEDS: aminophylline 25 mg/mL SDV 10 mL IVP ×2 (07:25→07:47)
[2023-02-07 07:48] VITALS: BP 135/70; PULSE 74
[2023-02-07 08:00] VITALS: BP 146/79; PULSE 60; PULSE 62; RESP 14; RESP 16; TEMP 36.7; O2SAT 90; O2SAT 94
[2023-02-07] MEDS: clopidogrel 75 mg Tablet PO (08:56)
[2023-02-07] MEDS: apixaban 5 mg Tablet 10 MG PO (08:57)
[2023-02-07] MEDS: acetaminophen 500 mg Tablet PO (08:57)
--- NOTE | 2023-02-07 09:08 | PM.PN ---
Subjective Subjective: no new complaints Medications: Reviewed: Yes Vitals/I&O/Wt Last Vital Signs Temp 98.4 F 02/07/23 04:00 Pulse 62 02/07/23 08:00 Resp 16 02/07/23 08:00 BP 135/70 02/07/23 07:48 Pulse Ox 90 02/07/23 08:00 O2 Del Method Room Air 02/07/23 08:00 O2 Flow Rate 2 02/05/23 09:40 02/06/23 02/07/23 02/07/23 22:59 06:59 14:59 Intake Total 480 / 980 Balance 480 / -686 Weight last 48 hrs Weight 51.8 kg Physical Exam Narrative: Patient alert no acute distress, on 2 L oxygen by nasal cannula S1-S2 regular rate and rhythm per report Lungs clear per report No pedal edema Data 02/04/23 03:16 02/05/23 01:58 Micro: Microbiology 02/01/23 17:15 Blood Culture - Final Blood NO GROWTH AFTER 5 DAYS 02/01/23 17:27 Blood Culture - Final Blood NO GROWTH AFTER 5 DAYS A&P Assessment and plan (1) ESRD (end stage renal disease) on dialysis: Plan End-stage renal disease: HD per MWF schedule Hypertension: Continue home meds Urinary tract infection: Antibiotics per medicine History of left hip fracture History of decubitus wound Chronic anemia, ordered МАРИНА Patient evaluated using audiovisual cart. Time spent 35 minutes Attestations Medical Necessity Statement*: per medicine Coding Level of Care Code Acute Code for [facility] Fwd Diagnoses ESRD (end stage renal disease) on dialysis N18.6; Z99.2
[2023-02-07] MEDS: epoetin alfa 1000 Unit/0.05 mL (ESRD) 20000 UNIT SUBCUT (11:18)
--- NOTE | 2023-02-07 12:54 | P.DS_ITS ---
Discharge Providers Date of Admission: 02/02/23 16:56 Date of Discharge: February 07, 2023 Attending Provider at Admission: Marycarmen Mcrae MD Attending Provider at Discharge: Marycarmen Mcrae MD Primary Care Provider: Soren Waters DO Diagnoses at Discharge Discharge Diagnosis (1) ESRD (end stage renal disease) on dialysis: Status: Acute Reason for Visit Reason for Visit: low BP Hospital Course Hospital Course 87-year-old female with history of ventricular disease Monday presented to the hospital after missing dialysis because she was not feeling well, she was diagnosed with UTI and hypertension at the time of admission, she was given gentle fluid hydration which improved her blood pressure, during hospitalization trend of troponin was significant for delta, she never complained of chest pain or worsening of shortness of breath, she remains on 2 L of oxygen, she does have chronic diarrhea C. difficile was ruled out she was given Imodium, she received course of antibiotics during hospitalization which was not resumed at the time of discharge because she has remained afebrile and got 5 days of antibiotics in the hospital which should suffice for UTI, she will be discharged back to [facility] where she is doing rehab, for her hip fracture she does get opioids which is being managed medically she is not a surgical candidate, she will go back to [facility] once she is done with her rehab at [facility], nephro was consulted for her regular dialysis, she has left arm fistula. Patient was treated with heparin initially which was transitioned to Eliquis, her stress test was not significant for coronary ischemia, she was diagnosed with left leg DVT she will get Eliquis at the time of discharge, provoked dvt , will get atleast 6 months of Anticoagulation Physical Exam Narrative: She is awake and alert Left arm fistula GCS 15 Currently on room air Eating breakfast No active complaint No active shortness of breath or chest pain Discharge Data Studies Completed and Pending Completed Studies During Hospitalization Category Date Time Status CTA PE [CT angio chest PE protcl [id number]] Routine Cat Scan 02/02/23 09:02 Completed Sestamibi Stress Test Request Routine Exams 02/05/23 12:53 Completed XR chest 1V portable [id number] Stat Exams 02/01/23 14:31 Completed NM itzel perf SPECT r/s* [id number] Routine Nuc Med 02/07/23 06:30 [place] [id number] Routine Ultrasound 02/02/23 09:02 Completed CV. echo complete* [id number] Routine Ultrasound 02/02/23 Completed Radiology Impressions Chest X-Ray 02/01/23 14:31 IMPRESSION: 1. Cardiomegaly. 2. Emphysematous changes. 3. Trace bilateral pleural effusions suspected. Chest CTA 02/02/23 09:02 IMPRESSION: 1. Proximal main pulmonary arteries are normal. No evidence of pulmonary embolus. 2. Small bilateral pleural effusions. Compressive atelectasis in the lung bases. 3. Cardiomegaly. Laboratory Results WBC 6.3 10^3/uL (4.0-10.0) 02/04/23 03:16 Corrected WBC Hand Candy Cutter 02/02/23 05:23 RBC 2.15 10^6/uL (4.1-5.3) L 02/04/23 03:16 Hgb 7.9 g/dL (11.5-15.3) L 02/04/23 03:16 Hct 24.7 % (37.0-47.0) L 02/04/23 03:16 MCV 114.9 fl (81-99) H 02/04/23 03:16 MCH 36.7 pg (28.0-34.0) H 02/04/23 03:16 MCHC 32.0 g/dL (30.0-36.0) 02/04/23 03:16 RDW 15.1 % (12.1-15.1) 02/04/23 03:16 Plt Count 177 10^3/cmm (130-400) 02/04/23 03:16 MPV 9.5 fL (7.4-10.4) 02/04/23 03:16 Gran % Hand Candy Cutter 02/02/23 05:23 Neut % (Auto) 74.9 % 02/04/23 03:16 Lymph % (Auto) 12.1 % 02/04/23 03:16 [place] % (Auto) 8.9 % 02/04/23 03:16 Eos % (Auto) 3.3 % 02/04/23 03:16 Baso % (Auto) 0.5 % 02/04/23 03:16 Neut # (Auto) 4.71 10^3/uL (1.8-7.7) 02/04/23 03:16 Lymph # (Auto) 0.8 10^3/uL (0.8-4.8) 02/04/23 03:16 [place] # (Auto) 0.6 10^3/uL (0.2-0.9) 02/04/23 03:16 Eos # (Auto) 0.2 10^3/uL (0.0-0.8) 02/04/23 03:16 Baso # (Auto) 0.0 10^3/uL (0.0-0.1) 02/04/23 03:16 Absolute Gran (auto) Hand Candy Cutter 02/02/23 05:23 Nucleated RBC % (auto) 0 % 02/04/23 03:16 Nucleated RBCs # 0.0 /100WBC 02/04/23 03:16 APTT 55.4 SECONDS (23.9-36.7) H 02/04/23 16:26 D-Dimer 11.79 ug/mIFEU (0-0.59) H 02/01/23 14:57 Sodium 140 mmol/L (136-145) 02/05/23 01:58 Potassium 4.1 mmol/L (3.5-5.1) 02/05/23 01:58 Chloride 100 mmol/L (98-107) 02/05/23 01:58 Carbon Dioxide 28 mmol/L (22-29) 02/05/23 01:58 Anion Gap 16.1 (5-19) 02/05/23 01:58 BUN 35 mg/dL (8-23) H 02/05/23 01:58 Creatinine 4.2 mg/dL (0.5-0.9) H 02/05/23 01:58 GFR Calculation Not Reportable 02/05/23 01:58 Glucose 94 mg/dL (65-115) 02/05/23 01:58 Calculated Osmolality 298 mOsm/kg (285-295) H 02/05/23 01:58 Lactic Acid 1.1 mmol/L (0.5-2.2) 02/01/23 14:57 Calcium 8.9 mg/dL (8.5-10.5) 02/05/23 01:58 Phosphorus 4.4 mg/dL (2.5-4.5) 02/03/23 05:06 Magnesium 1.6 mg/dL (1.7-2.3) L 02/04/23 03:16 Total Bilirubin 0.3 mg/dL (0.15-1.2) 02/01/23 14:57 AST 12 U/L (0-32) 02/01/23 14:57 ALT 9 U/L (0-33) 02/01/23 14:57 Alkaline Phosphatase 147 U/L (35-105) H 02/01/23 14:57 Troponin T Baseline 184 ng/L (0-10) H* 02/02/23 11:57 Troponin T 120 Minute 178.8 ng/L (0-10) H 02/02/23 14:00 Delta Troponin T -5.2 ABS# (0-10) L 02/02/23 14:00 Troponin T Hi Sens 6Hr 190.5 ng/L (0-10) H 02/02/23 18:38 Troponin T Hi Sens 6Hr Delta 6.5 ng/L (0-12) 02/02/23 18:38 C-Reactive Protein 170.6 mg/L (0.0-4.9) H 02/03/23 05:06 Total Protein 4.8 g/dL (6.6-8.7) L 02/01/23 14:57 Albumin 2.6 g/dL (3.5-5.2) L 02/01/23 14:57 Globulin 2.2 g/dL (1.3-4.6) 02/01/23 14:57 Procalcitonin 0.32 ng/mL (0-0.5) 02/01/23 14:57 TSH 3.84 uIU/mL (0.27-4.20) 02/01/23 14:57 Urine Color Yellow (Yellow) 02/01/23 15:22 Urine Appearance Cloudy (CLEAR) A 02/01/23 15:22 Urine pH 6 (5-7) 02/01/23 15:22 Ur Specific [place] 1.015 (1.005-1.030) 02/01/23 15:22 Urine Protein 2+ (Negative) H 02/01/23 15:22 Urine Glucose (UA) Norm (Normal) 02/01/23 15:22 Urine Ketones Negative (Negative) 02/01/23 15:22 Urine Blood 2+ (Negative) H 02/01/23 15:22 Urine Nitrate Negative (Negative) 02/01/23 15:22 Urine Bilirubin Neg (Negative) 02/01/23 15:22 Urine Urobilinogen Norm mg/dL (Negative) 02/01/23 15:22 Ur Leukocyte Esterase 2+ (Negative) H 02/01/23 15:22 Urine RBC 5-10 /hpf (0-2) H 02/01/23 15:22 Urine WBC >100 /hpf (0-5) H 02/01/23 15:22 Ur Squamous Epith Cells 0-4 /hpf (0-5) H 02/01/23 15:22 Amorphous Sediment Not Reportable 02/01/23 15:22 Urine Bacteria 4+ /hpf (NONE) H 02/01/23 15:22 Urine Mucus 1+ /hpf 02/01/23 15:22 Hep Bs Antigen Non-reactive (Nonreactive) 02/01/23 14:57 Hep Bs Antibody 75.1 (11.5-1000) 02/01/23 14:57 Hep B Core Total Ab Non-reactive (Nonreactive) 02/01/23 14:57 Vitals Last Vital Signs Temp 98.1 F 02/07/23 08:00 Pulse 60 02/07/23 08:00 Resp 14 02/07/23 08:00 BP 146/79 02/07/23 08:00 Pulse Ox 94 02/07/23 08:00 O2 Del Method Room Air 02/07/23 08:00 O2 Flow Rate 2 02/07/23 08:00 Discharge Plan Discharge Patient Disposition: Xfer SNF Condition: Stable Prescriptions: New Eliquis 5 mg tablet 5 mg PO BID Qty: 120 5RF Rx Instructions: 10mg bid for 7 days then 5 mg bid for 6 months Continued pantoprazole [Protonix] 40 mg tablet,delayed release (DR/EC) 40 mg PO BID acetaminophen [Tylenol] 325 mg tablet 650 mg PO Q4H PRN (Reason: Pain) ipratropium-albuterol 0.5 mg-3 mg(2.5 mg base)/3 mL solution for nebulization 3 ml INHALATION Q4H PRN (Reason: Shortness Of Breath) citalopram [Celexa] 10 mg tablet 10 mg PO DAILY simethicone [Gas Relief (simethicone)] 80 mg tablet,chewable 80 mg PO DAILY PRN (Reason: abdominal distention) bisacodyl 10 mg suppository 10 mg [place] DAILY PRN (Reason: constipation) Rx Instructions: if no bm in 3 days Fleet Enema 19-7 gram/118 mL enema 118 ml [place] DAILY PRN (Reason: constipation) cholecalciferol (vitamin D3) [Vitamin D3] 25 mcg (1,000 unit) capsule 25 mcg PO DAILY (DME) elastic bandage 3 bandage See Rx Instructions .Route Rx Instructions: Apply to LLE as needed for swelling and continue to elevate the LE's as needed. lidocaine-prilocaine 2.5-2.5 % cream 1 applic topical .COMPLEX Rx Instructions: apply to L upper arm and wrap with saran wrap prior to dialysis on mon,wed and fri (DME) elastic bandage Bandage See Rx Instructions .Route Rx Instructions: Apply every day to LLE as needed. ondansetron HCl 8 mg tablet 8 mg PO TID PRN (Reason: nausea and vomiting) promethazine 12.5 mg suppository 12.5 mg [place] Q8H PRN (Reason: nausea and vomiting) bumetanide 1 mg tablet 1 mg PO .COMPLEX Rx Instructions: 1 mg orally On non dialysis days; ON [id number] alprazolam 0.25 mg tablet 0.25 mg PO BID PRN (Reason: Anxiety) 30 Days Qty: 60 5RF Rx Instructions: (end date 02/05/23) Marybel-Eugenio Rx 1-60-300 mg-mg-mcg Tablet 1 tab PO DAILY calcium acetate(phosphat bind) 667 mg tablet 667 mg PO TID tamsulosin [Flomax] 0.4 mg capsule 0.4 mg PO BEDTIME carvedilol 12.5 mg tablet See Rx Instructions .ROUTE .COMPLEX Rx Instructions: 12.5mg po twice a day on mon,,,and mon simethicone 125 mg Capsule See Rx Instructions .ROUTE .COMPLEX Rx Instructions: 125mg po after meals and at bedtime as needed for gas promethazine 25 mg tablet 25 mg PO BID PRN (Reason: Nausea And Vomiting) polyethylene glycol 3350 17 gram/dose Powder 17 g PO DAILY PRN (Reason: Constipation) sevelamer carbonate 800 mg tablet 800 mg PO TID Xtampza ER 18 mg cap,sprinkl,ER12hr(DONT CRUSH) 18 mg PO BID loperamide [Anti-Diarrheal (loperamide)] 2 mg tablet 2 - 4 mg PO TID PRN (Reason: if lomotil is ineffective) carvedilol 12.5 mg tablet See Rx Instructions .ROUTE .COMPLEX Rx Instructions: 12.5mg po twice a day on mon,wed,and fri (send with resident to dialysis) Hemorrhoidal (witch maia) 50 % Pads, Medicated 1 pad TOPICAL BID PRN (Reason: Hemorrhoids) naloxone 0.4 mg/mL Solution See Rx Instructions .ROUTE .COMPLEX Rx Instructions: im in deltoid or thigh may repeat every 3-5 minutes for 3 doses and call 911 if no response loperamide 2 mg Tablet 2 mg PO Q8H PRN (Reason: Diarrhea) Lomotil 2.5-0.025 mg tablet 1 tab PO QID PRN (Reason: Diarrhea) hydrocodone-acetaminophen 10-325 mg tablet 1 tab PO Q4H PRN (Reason: Pain) lidocaine cream 4 % topical 3XD PRN (Reason: pain) Rx Instructions: 4 % topically as needed ;1 topically as needed Discontinued isosorbide mononitrate 30 mg tablet extended release 24 hr 30 mg PO DAILY cefdinir 300 mg capsule 300 mg PO EVERY OTHER DAY Rx Instructions: preventative for dialysis sorbitol 70 % solution 60 ml PO DAILY PRN (Reason: constipation) carisoprodol 350 mg tablet 350 mg PO BID PRN (Reason: muscle spasticity) Qty: 60 3RF lactulose [Constulose] 10 gram/15 mL Solution 20 g PO BID Discharge Orders: Discharge Order (Routine); Ordered 02/07/23 Ordered By: Marycarmen Mcrae Referrals: Soren Waters DO [Primary Care Provider] - Discharge Diet: Cardiac Patient Instructions: Dialysis Diet (DC), Hemodialysis (DC), Opioid Safety Discharge Attestations Time Spent in Discharge Care*: greater than 30 min Quality Metrics Clinical Quality Measures [ No reported AMI, CVA or VTE this stay] Coding Level of Care Code Acute Code for [facility] Fwd Diagnoses ESRD (end stage renal disease) on dialysis N18.6; Z99.2
[2023-02-07] MEDS: levETIRAcetam 500 mg Tablet PO (13:42)
[2023-02-07 14:08] LABS: SARS Covid-2 Antigen negative (Negative)
--- NOTE | 2023-02-07 14:18 | PC.SOCIAL ---
IMM Updated Updated pt on IMM. No questions voiced. Provided pt a copy. Initialed, dated, & timed copy in chart.
[2023-02-07 15:04] VITALS: BP 146/79; PULSE 60; RESP 14; TEMP 36.7; O2SAT 94
== END 2023-02-07 15:06 | disposition skilled nursing facility (03) | DRG 689 ==
LOC: ER 17:13 → MEDSURG 18:37
PROVIDERS: Hospitalist; Internal Medicine; Admitting Provider Internal Medicine; Emergency Provider Emergency Medicine; PCP Family Medicine; Visit Provider Internal Medicine
DX: N30.01 Acute cystitis with hematuria (principal); I21.4 Non-ST elevation (NSTEMI) myocardial infarction; N18.6 End stage renal disease; I13.2 Hypertensive heart and chronic kidney disease with heart failure and with stage 5 chronic kidney disease, or end stage renal disease; I50.32 Chronic diastolic (congestive) heart failure; I82.452 Acute embolism and thrombosis of left peroneal vein; I82.442 Acute embolism and thrombosis of left tibial vein; J96.11 Chronic respiratory failure with hypoxia; Z99.2 Dependence on renal dialysis; K52.9 Noninfective gastroenteritis and colitis, unspecified; Z79.891 Long term (current) use of opiate analgesic; M19.90 Unspecified osteoarthritis, unspecified site; M79.7 Fibromyalgia; D63.1 Anemia in chronic kidney disease; I95.9 Hypotension, unspecified; F41.9 Anxiety disorder, unspecified; F32.A Depression, unspecified; K21.9 Gastro-esophageal reflux disease without esophagitis; Z85.3 Personal history of malignant neoplasm of breast; B96.89 Other specified bacterial agents as the cause of diseases classified elsewhere; Z87.440 Personal history of urinary (tract) infections; L89.319 Pressure ulcer of right buttock, unspecified stage; Z96.642 Presence of left artificial hip joint; I48.0 Paroxysmal atrial fibrillation; E78.5 Hyperlipidemia, unspecified; Z86.73 Personal history of transient ischemic attack (TIA), and cerebral infarction without residual deficits; Z86.711 Personal history of pulmonary embolism
CPT/HCPCS: 36415; 71045; 71275; 78452; 80048; 80053; 81001; 83605; 83735; 84100; 84145; 84443; 84484; 85025; 85378; 85730; 86140; 86705; 86706; 87040; 87077; 87086; 87186; 87340; 87426; 87493; 90935; 93005; 93017; 93306; 93970; 96365; 96367; 96372; 96375; 97110; 97161; 97530; 99285; A9500; G0378; J0280; J0696; J1170; J1644; J2185; J2405; J2785; J7030; P9047; Q3014; Q4081; Q9967

== ENCOUNTER → 2023-02-14 10:38 | Outpatient (BNVA) | payer MEDICARE, OTHER, SELFPAY | PROVIDERS: PCP Family Medicine; Visit Provider Nurse Practitioner Family | DX: M25.552 Pain in left hip (principal); Z98.890 Other specified postprocedural states; S32.402A Unspecified fracture of left acetabulum, initial encounter for closed fracture; X58.XXXA Exposure to other specified factors, initial encounter | CPT/HCPCS: 73502; 99213 ==

== ENCOUNTER 2023-02-17 17:42 | Outpatient (CLI) | payer MEDICARE, OTHER, SELFPAY ==
[2023-02-17 19:12] LABS: Hemoglobin 6.6 g/dL (11.5-15.3)
== END 2023-02-17 17:43 | disposition home or self-care (01) ==
PROVIDERS: PCP Family Medicine; Visit Provider Family Medicine
DX: N18.9 Chronic kidney disease, unspecified (principal); D63.1 Anemia in chronic kidney disease
CPT/HCPCS: 85014; 85018

== ENCOUNTER 2023-02-18 09:19 | Inpatient (IN) | payer MEDICARE, OTHER, SELFPAY ==
[2023-02-18] VITALS (18 sets, daily range): BP systolic 100–142; BP diastolic 45–67; PULSE 45–87; RESP 15–18; TEMP 36.6–37; O2SAT 70–98
--- NOTE | 2023-02-18 09:31 | ECG_ITS ---
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 Measurements Intervals [place] Rate: 75 P: 85 AR: 248 QRS: 9 QRSD: 95 T: 31 QT: 397 QTc: 445 Interpretive Statements SINUS RHYTHM WITH FIRST DEGREE AV BLOCK NONSPECIFIC T-WAVE ABNORMALITY Compared to ECG 02/02/2023 17:31:06 T-wave abnormality now present Electronically Signed On 02-19-2023 11:25:46 CDT by Oswaldo Logan M.D. [id number]
--- NOTE | 2023-02-18 10:24 | W.ED.RECABL ---
HPI - Recheck/Abnormal Lab/Rx General: Chief Complaint: Recheck/Abnormal Lab/Rx Stated Complaint: LOW HEMAGLOBLIN Time Seen by Provider: 02/18/23 09:22 History of Present Illness: Milla Thomas is an 87-year-old female that presents to the emergency department with complaints of anemia. Patient has end-stage chronic kidney disease which requires dialysis 3 times a week. She also has chronic anemia. [facility] Last hospitalization was 02/01-02/07 for anemia. Patient had a POC hemoglobin at her nursing facility which revealed hemoglobin of 6.6. It was anticipated that she was going to be transfused on Monday but due to the precipitous drop since last dialysis (Monday) she was transported here. Patient reports fatigue and malaise but not necessarily worse than her baseline. Review of Systems General: Reports: 10 or more systems reviewed and unremarkable except in HPI and below Const: Denies: fever(s), chills, change in appetite, change in weight, fatigue or malaise Eyes: Denies: change in vision, eye discomfort, eye discharge or eye redness ENMT: Denies: throat pain, enlarged tonsils, odynophagia, hoarseness, ear or mastoid pain, ear discharge, change in hearing, tinnitus, nasal discharge, nasal congestion, post nasal drip or sinus pain Card: Denies: chest pain, palpitations, irregular heart rhythm, edema, dyspnea on exertion, orthopnea or leg pain with exertion Resp: Denies: dyspnea, productive cough, non-productive cough, wheezing, stridor or chest congestion GI: Reports: diarrhea (Documented chronic diarrhea); Denies: nausea, vomiting, dysphagia, constipation, bloating, GI cramping or hematochezia : Denies: flank pain, difficulty voiding, dysuria, urinary frequency, urinary urgency, urinary hesitancy, oliguria or hematuria Musc: Denies: neck pain, back pain, extremity pain, joint pain, joint swelling, joint redness, joint warmth or muscle weakness Skin/Breast: Denies: rash, pruritus, erythema, photosensitivity or new lesions Neuro: Denies: headache(s), numbness in extremities, weakness in extremities, sensory changes, lack of coordination, difficulty walking, frequent falls, dizziness, confusion, Slurred speech present, difficulty communicating thoughts, seizure-like activity or involuntary movements Endo: Denies: polyuria, polydipsia or tired all the time Tino/Lymph: Denies: easy bruising or easy bleeding PFSH ED PFSH: Medical History (Updated 02/18/23 @ 12:35 by BOBBI Hernandez) Acetabulum fracture, left Anemia of chronic disease Anxiety and depression Chronic diarrhea DDD (degenerative disc disease) Decubitus ulcer of buttock Decubitus ulcer, buttock, right, unstageable Diastolic CHF ESRD (end stage renal disease) ESRD (end stage renal disease) on dialysis Fall Fibromyalgia GERD (gastroesophageal reflux disease) History of breast cancer Previously followed by Dr. Santoyo History of pulmonary embolus (PE) 08/2016 History of stroke 11/14/16 Hyperlipidemia Hypertension Hypoxemic respiratory failure, chronic Incomplete bladder emptying Internal and external bleeding hemorrhoids Lives in assisted living facility Low BP Lumbar spinal stenosis Non-STEMI (non-ST elevated myocardial infarction) Osteoarthritis Paroxysmal A-fib Peritoneal dialysis catheter in place Recurrent UTI Restrictive lung disease Urinary retention Urinary tract infection UTI (urinary tract infection) Surgical History History of back surgery History of esophagogastroduodenoscopy (EGD) 08/03/17 mild gastritis and duodenitis History of hemiarthroplasty of left hip 11/18/18: Dr. Mendoza History of hysterectomy History of lumpectomy of left breast History of right cataract surgery Family History Other Cancer Denies family history of Anesthesia complication Bleeding disorder Social History Second hand smoke exposure: No Alcohol intake: never Substance/Drug Use: never Adopted: No Caregiver/support person: Yes Lives independently: Yes Housing: Assisted Living Facility Marital status: Marital status details: with dementia Additional social history: FULL CODE DISCUSSED WITH PATIENT ON 02/04/20 Physical Exam Const: COMMON NORMALS: no acute distress and alert; negative for patient oriented x3 GENERAL APPEARANCE: cooperative ORIENTATION/CONSCIOUSNESS: Yes awake, Yes oriented to person and Yes oriented to place; not oriented to time HENMT: COMMON NORMALS: normocephalic and atraumatic HEAD & SCALP: normocephalic and atraumatic FACE & SINUS: normal facial exam MOUTH: Normal oral and palatal mucosa present THROAT: posterior oropharynx normal Eye: COMMON NORMALS: Equal, round and reactive pupils present, EOMs intact bilaterally, conjunctivae normal and no scleral icterus GENERAL EYE: appearance normal, both eyes and all related structures ALIGNMENT: Yes alignment normal PERIORBITAL: periorbital findings normal CONJUNCTIVA: Yes conjunctivae normal PUPIL: Yes Equal, round and reactive pupils present Neck/C-Spine: COMMON NORMALS: full ROM GENERAL: Yes normal visual inspection Lymph: LYMPHATIC: no lymphadenopathy noted Chest: COMMONS NORMALS: normal inspection of the chest Breast/axilla inspection: Yes no chest deformity, asymmetry, normal contours, no nodules, masses, tenderness Resp: COMMON NORMALS: normal respiratory effort, No retractions, No use of accessory muscles and clear to auscultation bilaterally EFFORT & INSPECTION: Yes able to speak in complete sentences and Yes symmetric chest movement AUSCULTATION: clear to auscultation bilaterally Cardio: COMMON NORMALS: regular rate, regular rhythm and Peripheral pulses 2+ throughout RATE: regular rate RHYTHM: regular rhythm HEART SOUNDS: Murmur heart sound present PERIPHERAL PULSES: Peripheral pulses 2+ throughout GI: COMMON NORMALS: Normal to inspection, nondistended, normoactive bowel sounds present, Soft to palpation, non-tender and No hepatosplenomegaly present INSPECTION: Yes normal to inspection AUSCULTATION: Yes normoactive bowel sounds PALPATION: Yes Soft to palpation and Yes No hepatosplenomegaly present RECTAL EXAM: deferred Extremity: COMMON NORMALS: normal to inspection GENERAL: Yes normal exam except as noted Neuro: COMMON NORMALS: negative for patient oriented x3 SENSORIUM/ORIENTATION: Yes alert, Yes oriented to person, Yes oriented to place and No oriented to time CRANIAL NERVES: Yes CN normal except as noted Psych: COMMON NORMALS: mental status grossly normal, Normal thought process present, cooperative, activity/motor behavior normal, denies homicidal ideation and denies suicidal ideation THOUGHT PROCESS: Normal thought process present Skin: COMMON NORMALS: no rashes or lesions noted, no wounds and turgor normal GENERAL SKIN EXAM: no rashes or lesions noted and turgor normal Course Vital Signs: Vital signs: Vital Signs Temperature 98.6 F 02/18/23 12:57 Pulse Rate 73 02/18/23 12:57 Respiratory Rate 16 02/18/23 12:57 Blood Pressure 127/56 02/18/23 12:57 Pulse Oximetry 95 02/18/23 11:53 Oxygen Delivery Me thod Room Air 02/18/23 11:53 MDM - Recheck/Abnormal Lab/Rx Medical Decision Making Differential diagnosis includes anemia secondary to kidney disease, blood loss, deficiency Patient was evaluated in the emergency department for acute on chronic anemia. Patient staff report required transfusion post dialysis in the past. It was planned to transfuse on Monday however following her last dialysis treatment, she had a precipitous drop in her hemoglobin. Hemoglobin at facility was 6.6. Of note, patient was admitted last month and was diagnosed with UTI, DVT, and anemia. Patient is currently anticoagulated on Eliquis We obtained laboratory evaluation, EKG to further evaluate. Hemoglobin on CBC is 5.9. 2 units packed red blood cells ordered. Positive Hemoccult. Hospitalist consulted at 1146 my: Agreeable for admission His history includes previous pulmonary embolism/dvt, hyperlipidemia, hypertension, CAD, congestive heart failure, end-stage chronic kidney disease requiring dialysis, chronic diarrhea Lab Data 02/18/23 10:06 02/18/23 10:06 Laboratory Results WBC 4.8 10^3/uL (4.0-10.0) 02/18/23 10:06 RBC 1.60 10^6/uL (4.1-5.3) L 02/18/23 10:06 Hgb 5.9 g/dL (11.5-15.3) L* 02/18/23 10:06 Hct 19.4 % (37.0-47.0) L* 02/18/23 10:06 MCV 121.3 fl (81-99) H 02/18/23 10:06 MCH 36.9 pg (28.0-34.0) H 02/18/23 10:06 MCHC 30.4 g/dL (30.0-36.0) 02/18/23 10:06 RDW 18.2 % (12.1-15.1) H 02/18/23 10:06 Plt Count 164 10^3/cmm (130-400) 02/18/23 10:06 MPV 9.8 fL (7.4-10.4) 02/18/23 10:06 Neut % (Auto) 56.7 % 02/18/23 10:06 Lymph % (Auto) 26.4 % 02/18/23 10:06 [place] % (Auto) 11.9 % 02/18/23 10:06 Eos % (Auto) 3.8 % 02/18/23 10:06 Baso % (Auto) 0.8 % 02/18/23 10:06 Neut # (Auto) 2.70 10^3/uL (1.8-7.7) 02/18/23 10:06 Lymph # (Auto) 1.3 10^3/uL (0.8-4.8) 02/18/23 10:06 [place] # (Auto) 0.6 10^3/uL (0.2-0.9) 02/18/23 10:06 Eos # (Auto) 0.2 10^3/uL (0.0-0.8) 02/18/23 10:06 Baso # (Auto) 0.0 10^3/uL (0.0-0.1) 02/18/23 10:06 Nucleated RBC % (auto) 0 % 02/18/23 10:06 Nucleated RBCs # 0.0 /100WBC 02/18/23 10:06 Sodium 136 mmol/L (136-145) 02/18/23 10:06 Potassium 3.6 mmol/L (3.5-5.1) 02/18/23 10:06 Chloride 102 mmol/L (98-107) 02/18/23 10:06 Carbon Dioxide 24 mmol/L (22-29) 02/18/23 10:06 Anion Gap 13.6 (5-19) 02/18/23 10:06 BUN 38 mg/dL (8-23) H 02/18/23 10:06 Creatinine 3.7 mg/dL (0.5-0.9) H 02/18/23 10:06 GFR Calculation Not Reportable 02/18/23 10:06 Glucose 108 mg/dL (65-115) 02/18/23 10:06 Calculated Osmolality 292 mOsm/kg (285-295) 02/18/23 10:06 Calcium 7.8 mg/dL (8.5-10.5) L 02/18/23 10:06 Total Bilirubin 0.4 mg/dL (0.15-1.2) 02/18/23 10:06 AST 11 U/L (0-32) 02/18/23 10:06 ALT 6 U/L (0-33) 02/18/23 10:06 Alkaline Phosphatase 113 U/L (35-105) H 02/18/23 10:06 Total Protein 4.3 g/dL (6.6-8.7) L 02/18/23 10:06 Albumin 2.3 g/dL (3.5-5.2) L 02/18/23 10:06 Globulin 2.0 g/dL (1.3-4.6) 02/18/23 10:06 Blood Type O Positive 02/18/23 10:06 Rho(D) Type Positive 02/18/23 10:06 Antibody Screen Negative 02/18/23 10:06 Crossmatch See Detail 02/18/23 10:06 Discharge Plan Discharge Patient Disposition: Admitted As Inpatient Admit Provider: Mansi Fernandez Clinical Impression: Anemia, Chronic kidney disease, Acute GI bleeding Condition: Stable Coding Level of Care Code ED [employer]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
[2023-02-18 10:39] LABS: Basophils % 0.8 %; Eosinophils # 0.2 10^3/uL (0.0-0.8); Eosinophils % 3.8 %; Lymphocytes # 1.3 10^3/uL (0.8-4.8); Lymphocytes % 26.4 %; Mean Corpuscular HGB Conc 30.4 g/dL (30.0-36.0); Mean Corpuscular Hemoglobin 36.9 pg (28.0-34.0); Mean Corpuscular Volume 121.3 fl (81-99); Mean Platelet Volume 9.8 fL (7.4-10.4); Monocytes # 0.6 10^3/uL (0.2-0.9); Monocytes % 11.9 %; Neutrophils % 56.7 %; Nucleated Red Blood Cells % 0 %; Platelet Count 164 10^3/cmm (130-400); Red Cell Distribution Width 18.2 % (12.1-15.1); White Blood Count 4.8 10^3/uL (4.0-10.0)
[2023-02-18 10:42] LABS: Hematocrit 19.4 % (37.0-47.0); Hemoglobin 5.9 g/dL (11.5-15.3)
[2023-02-18 10:44] LABS: Alanine Aminotransferase 6 U/L (0-33); Albumin Level 2.3 g/dL (3.5-5.2); Alkaline Phosphatase 113 U/L (35-105); Anion Gap 13.6 (5-19); Aspartate Amino Transferase 11 U/L (0-32); Blood Urea Nitrogen 38 mg/dL (8-23); Calcium 7.8 mg/dL (8.5-10.5); Carbon Dioxide 24 mmol/L (22-29); Chloride 102 mmol/L (98-107); Glucose 108 mg/dL (65-115); Osmolality Calculated 292 mOsm/kg (285-295); Potassium 3.6 mmol/L (3.5-5.1); Sodium 136 mmol/L (136-145); Total Bilirubin 0.4 mg/dL (0.15-1.2); Total Protein 4.3 g/dL (6.6-8.7)
[2023-02-18] MEDS: HYDROcodone-acetaminophen 5-325 mg Tablet 1 TAB PO (13:15)
[2023-02-18] MEDS: sodium chloride 0.9% 1,000 ML 50 ML IV (15:46)
--- NOTE | 2023-02-18 17:18 | PM.HP ---
Providers/Chief Complaint Admitting Physician: Mansi Fernandez MD Primary Care Provider: Soren Waters DO Chief Complaint: LOW HEMAGLOBLIN History of Present Illness Milla Thomas is a 87 year old female with chronic kidney disease on hemodialysis Monday, recent pelvic fracture in January 2023 for which she is on conservative management, undergoing physical therapy at rehab, suffered from provoked acute nonocclusive DVT of left peroneal and posterior tibial veins for which she got started on Eliquis 5 mg p.o. twice daily 15 days ago. She presents to the emergency room today due to generalized weakness. Hemoglobin was recently checked at [facility] and showed an acute drop to 5.9. It appears her baseline after recent fracture has been between 8-9. She has not noticed any obvious melena or hematemesis though Hemoccult performed in the emergency room was positive. No recent other trauma. No bleeding at any other site is reported. Review of Systems General: Reports: 10 or more systems reviewed and unremarkable except in HPI and below Const: Denies: fever(s), chills or body aches Eyes: Denies: change in vision, blurry vision or photophobia ENMT: Reports: hoarseness; Denies: throat pain, enlarged tonsils, odynophagia or nasal congestion Card: Denies: chest pain, palpitations, irregular heart rhythm, edema, swelling of feet/ankles, lightheadedness, pre-syncope, dyspnea on exertion or orthopnea Resp: Denies: dyspnea, productive cough, non-productive cough, wheezing, stridor, pain on inspiration, change in phlegm color, hemoptysis or chest congestion GI: Denies: abdominal pain, nausea, vomiting, hematemesis, coffee ground emesis, dysphagia, heartburn, diarrhea, constipation, GI cramping, change in stool character, hematochezia or melena : Denies: flank pain, difficulty voiding, dysuria, urinary frequency, urinary urgency, urinary hesitancy or hematuria Musc: Denies: neck pain, back pain, extremity pain, joint swelling, joint warmth or deformity Neuro: Denies: headache(s), numbness in extremities, weakness in extremities, sensory changes, difficulty walking, frequent falls, dizziness, vertigo, behavioral changes, Slurred speech present or seizure-like activity Psych: Denies: anxiety, depression, suicidal ideation or homicidal ideation Endo: Denies: polyuria, polydipsia, tired all the time, cold intolerance or hot flashes Tino/Lymph: Denies: easy bruising or easy bleeding Medications/Allergies Home Medications Medication Instructions Recorded Confirmed Last Taken Type acetaminophen 325 mg tablet 650 mg PO Q4H PRN Pain 11/13/19 02/18/23 03/29/21 History (Tylenol) citalopram 10 mg tablet (Celexa) 10 mg PO DAILY 11/13/19 02/18/23 02/18/23 History ipratropium 0.5 mg-albuterol 3 mg 3 ml inhalation Q4H PRN Shortness 11/13/19 02/18/23 Unknown History (2.5 mg base)/3 mL nebulization Of Breath soln pantoprazole 40 mg tablet,delayed 40 mg PO BID 11/13/19 02/18/23 02/18/23 History release (Protonix) vitamin B comp no.3-folic acid 1 1 tab PO DAILY 02/25/20 02/18/23 02/18/23 History mg-vit C 60 mg-biotin 300 mcg tablet ([facility]) tamsulosin 0.4 mg capsule (Flomax) 0.4 mg PO BEDTIME 09/08/20 02/18/23 02/17/23 History calcium acetate(phosphat bind) 667 667 mg PO TID 03/29/21 02/18/23 02/18/23 History mg tablet bisacodyl 10 mg rectal suppository 10 mg DC DAILY PRN constipation 10/10/21 02/18/23 Unknown History cholecalciferol (vitamin D3) 25 25 mcg PO DAILY 10/10/21 02/18/23 02/18/23 History mcg (1,000 unit) capsule (Vitamin D3) elastic bandage 10/10/21 02/18/23 Unknown History elastic bandage 3 10/10/21 02/18/23 Unknown History lidocaine-prilocaine 2.5 %-2.5 % 1 applic topical .COMPLEX 10/10/21 02/18/23 Unknown History topical cream ondansetron HCl 8 mg tablet 8 mg PO TID PRN nausea and vomiting 10/10/21 02/18/23 02/01/23 History promethazine 12.5 mg rectal 12.5 mg DC Q8H PRN nausea and 10/10/21 02/18/23 Unknown History suppository vomiting simethicone 80 mg chewable tablet 80 mg PO DAILY PRN abdominal 10/10/21 02/18/23 Unknown History (Gas Relief (simethicone)) distention sodium phosphates 19 gram-7 118 ml DC DAILY PRN constipation 10/10/21 02/18/23 Unknown History gram/118 mL enema (Fleet Enema) alprazolam 0.25 mg tablet 0.25 mg PO BID PRN Anxiety 30 days 07/07/22 02/18/23 02/17/23 Rx #60 tabs bumetanide 1 mg tablet 1 mg PO .COMPLEX 01/18/23 02/18/23 02/18/23 History carvedilol 12.5 mg tablet See Rx Instructions .Route .COMPLEX 01/19/23 02/18/23 02/16/23 History oxycodone myristate 18 mg capsule 18 mg PO BID 01/19/23 02/18/23 02/18/23 History sprinkle extended release 12hr(DON'T CRUSH) (Xtampza ER) polyethylene glycol 3350 17 17 g PO DAILY PRN Constipation 01/19/23 02/18/23 Unknown History gram/dose oral powder promethazine 25 mg tablet 25 mg PO BID PRN Nausea And 01/19/23 02/18/23 Unknown History Vomiting sevelamer carbonate 800 mg tablet 800 mg PO TID 01/19/23 02/18/23 02/18/23 History simethicone 125 mg capsule See Rx Instructions .Route .COMPLEX 01/19/23 02/18/23 Unknown History carvedilol 12.5 mg tablet See Rx Instructions .Route .COMPLEX 02/01/23 02/18/23 02/17/23 History diphenoxylate-atropine 2.5 1 tab PO QID PRN Diarrhea 02/01/23 02/18/23 02/18/23 History mg-0.025 mg tablet (Lomotil) hydrocodone 10 mg-acetaminophen 1 tab PO Q4H PRN Pain 02/01/23 02/18/23 02/18/23 History 325 mg tablet loperamide 2 mg tablet 2 mg PO Q8H PRN Diarrhea 02/01/23 02/18/23 Unknown History naloxone 0.4 mg/mL injection See Rx Instructions .Route .COMPLEX 02/01/23 02/18/23 Unknown History solution witch maia 50 % topical pads 1 pad topical BID PRN Hemorrhoids 02/01/23 02/18/23 Unknown History (Hemorrhoidal (witch maia)) lidocaine 4 % topical 3XD PRN pain 02/05/23 02/18/23 02/17/23 History apixaban 5 mg tablet (Eliquis) 5 mg PO BID #120 tabs 02/07/23 02/18/23 02/18/23 Rx lactulose 10 gram/15 mL oral 30 ml PO DAILY 02/18/23 02/18/23 02/15/23 History solution (Constulose) Allergies Allergy/AdvReac Type Severity Reaction Status Date / Time amitriptyline [From Elavil] Allergy Unknown Unknown Verified 02/18/23 09:30 cyclobenzaprine Allergy Unknown Unknown Verified 02/18/23 09:30 [From Flexeril] Penicillins Allergy Unknown Unknown Verified 02/18/23 09:30 pentazocine [From Talwin] Allergy Unknown Unknown Verified 02/18/23 09:30 pregabalin [From Lyrica] Allergy Unknown Unknown Verified 02/18/23 09:30 tizanidine Allergy Unknown Unknown Verified 02/18/23 09:30 doxycycline Allergy Unknown Verified 02/18/23 09:30 morphine Allergy Unknown Verified 02/18/23 09:30 naloxone Allergy Unknown Verified 02/18/23 09:30 Sulfa (Sulfonamide Allergy Unknown Verified 02/18/23 09:30 Antibiotics) sulfamethoxazole AdvReac kidney Verified 02/18/23 09:30 [From Bactrim] trimethoprim [From Bactrim] AdvReac kidney Verified 02/18/23 09:30 PFSH Acute PFSH: Medical History Acetabulum fracture, left Anemia of chronic disease Anxiety and depression Chronic diarrhea DDD (degenerative disc disease) Decubitus ulcer of buttock Decubitus ulcer, buttock, right, unstageable Diastolic CHF ESRD (end stage renal disease) ESRD (end stage renal disease) on dialysis Fall Fibromyalgia GERD (gastroesophageal reflux disease) History of breast cancer Previously followed by Dr. Santoyo History of pulmonary embolus (PE) 08/2016 History of stroke 11/14/16 Hyperlipidemia Hypertension Hypoxemic respiratory failure, chronic Incomplete bladder emptying Internal and external bleeding hemorrhoids Lives in assisted living facility Low BP Lumbar spinal stenosis Non-STEMI (non-ST elevated myocardial infarction) Osteoarthritis Paroxysmal A-fib Peritoneal dialysis catheter in place Recurrent UTI Restrictive lung disease Urinary retention Urinary tract infection UTI (urinary tract infection) Surgical History History of back surgery History of esophagogastroduodenoscopy (EGD) 08/03/17 mild gastritis and duodenitis History of hemiarthroplasty of left hip 11/18/18: Dr. Mendoza History of hysterectomy History of lumpectomy of left breast History of right cataract surgery Family History Other Cancer Denies family history of Anesthesia complication Bleeding disorder Social History Second hand smoke exposure: No Alcohol intake: never Substance/Drug Use: never Adopted: No Caregiver/support person: Yes Lives independently: Yes Housing: Assisted Living Facility Marital status: Marital status details: with dementia Additional social history: FULL CODE DISCUSSED WITH PATIENT ON 02/04/20 Vitals/I&O/Wt Last Vital Signs Temp 98.3 F 02/18/23 16:07 Pulse 68 02/18/23 16:07 Resp 18 02/18/23 16:07 BP 100/62 02/18/23 16:07 Pulse Ox 93 02/18/23 16:07 O2 Del Method Room Air 02/18/23 14:27 02/18/23 02/18/23 02/18/23 06:59 14:59 22:59 Intake Total 0 / 0 0 / 0 Balance 0 / 0 0 / 0 Weight last 48 hrs Weight 46.72 kg Physical Exam Narrative: General: No acute distress, AO x3 HEENT: PERRLA, pupils bilaterally equal and reactive, pallors not present Chest: Normal vesicular breath sounds, no added sounds, equal good air entry bilaterally CVS: S1-S2 regular, no murmurs, no tachycardia, no gallops, no rubs Abdomen: Soft, nontender, no organomegaly, bowel sounds present Neuro: No focal deficits, no facial deformity, AO x3, power 5/5 in all limbs Data 02/18/23 10:06 02/18/23 10:06 A&P Assessment and plan (1) Anemia: Acute on chronic anemia with hemoglobin drop to 5.9 which is symptomatic for the patient. She reports increased generalized weakness. It appears her recent baseline 1 month ago was with hemoglobin between 8-9. Patient was recently started on Eliquis for her a provoked DVT of her left lower extremity. Hemoccult is positive in the ER today. No demian melena or hematemesis currently Possibly patient may have GI bleeding after being initiated on anticoagulation contributing to the acute drop. We will consult general surgery to assess for endoscopy. Hold Eliquis. Last dose taken this morning. Start Protonix 40 mg IV every 12 hours Clear liquid diet for now Status post 1 packed red blood cell transfusion today in the emergency room. (2) Acute GI bleeding: As above (3) DVT (deep venous thrombosis): Recent nonocclusive DVT of left 40 peroneal and posterior tibial veins. Repeat lower extremity venous Doppler to assess for resolution of DVT, though this is less likely given that she has been on anticoagulation for less than 15 days. If persistent DVT, may need need placement of IVC filter as cannot safely continue anticoagulation with Eliquis at this time. (4) Chronic kidney disease: On maintenance hemodialysis. Consult nephrology to maintain outpatient Monday schedule (5) Decubitus ulcer of right hip: Present on admit. She is currently undergoing wound care at the senior living. She is on wound VAC typically with 3 times a week dressing changes. Qualifiers: Pressure injury stage: stage 2 Qualified Code(s): L89.212 - Pressure ulcer of right hip, stage 2 Plan DVT ppx: Scd Full code Attestations Medical Necessity Statement*: Anticipate greater than 2 midnight admission for GI bleed, blood transfusion, assess for endoscopy, decisons regarding IVC filter Diagnoses Anemia D64.9 Acute GI bleeding K92.2 DVT (deep venous thrombosis) I82.409 Chronic kidney disease N18.9 Decubitus ulcer of right hip L89.212 Pressure injury stage: stage 2
[2023-02-18] MEDS: pantoprazole 40 mg SDV IVP (17:53)
[2023-02-18 18:24] LABS: Hematocrit 26.7 % (37.0-47.0)
[2023-02-18] MEDS: sevelamer 800 mg Tablet PO (20:43)
[2023-02-18] MEDS: calcium acetate 667 mg Capsule PO (20:43)
[2023-02-18] MEDS: tamsulosin 0.4 mg Capsule PO (20:43)
[2023-02-18] MEDS: HYDROcodone-acetaminophen 10-325 mg Tablet 1 TAB PO (22:48)
[2023-02-18] MEDS: ALPRAZolam 0.5 mg Tablet 0.25 MG PO (22:48)
[2023-02-19] VITALS (9 sets, daily range): BP systolic 126–180; BP diastolic 51–74; PULSE 54–67; RESP 15–18; TEMP 36.1–36.7; O2SAT 93–96
[2023-02-19] MEDS: pantoprazole 40 mg SDV IVP ×2 (05:12→18:28)
[2023-02-19 06:10] LABS: Basophils # 0.1 10^3/uL (0.0-0.1); Basophils % 1.3 %; Eosinophils # 0.3 10^3/uL (0.0-0.8); Eosinophils % 5.5 %; Hematocrit 26.3 % (37.0-47.0); Hemoglobin 8.5 g/dL (11.5-15.3); Lymphocytes # 1.8 10^3/uL (0.8-4.8); Lymphocytes % 38.5 %; Mean Corpuscular HGB Conc 32.3 g/dL (30.0-36.0); Mean Corpuscular Hemoglobin 33.2 pg (28.0-34.0); Mean Corpuscular Volume 102.7 fl (81-99); Mean Platelet Volume 9.9 fL (7.4-10.4); Monocytes # 0.6 10^3/uL (0.2-0.9); Monocytes % 13.1 %; Neutrophils # 1.95 10^3/uL (1.8-7.7); Neutrophils % 41.2 %; Nucleated Red Blood Cells % 0 %; Platelet Count 149 10^3/cmm (130-400); Red Blood Count 2.56 10^6/uL (4.1-5.3); Red Cell Distribution Width 24.2 % (12.1-15.1); White Blood Count 4.7 10^3/uL (4.0-10.0)
[2023-02-19 06:35] LABS: Alanine Aminotransferase 7 U/L (0-33); Alkaline Phosphatase 114 U/L (35-105); Blood Urea Nitrogen 48 mg/dL (8-23); Calcium 7.9 mg/dL (8.5-10.5); Carbon Dioxide 22 mmol/L (22-29); Chloride 104 mmol/L (98-107); Glucose 75 mg/dL (65-115); Osmolality Calculated 297 mOsm/kg (285-295); Sodium 138 mmol/L (136-145); Total Bilirubin 0.5 mg/dL (0.15-1.2)
[2023-02-19 07:00] LABS: Aspartate Amino Transferase 15 U/L (0-32)
[2023-02-19] MEDS: HYDROcodone-acetaminophen 10-325 mg Tablet 1 TAB PO ×3 (10:17→20:25)
[2023-02-19] MEDS: calcium acetate 667 mg Capsule PO ×3 (10:17→20:25)
[2023-02-19] MEDS: carvedilol 12.5 mg Tablet PO (10:18)
[2023-02-19] MEDS: sevelamer 800 mg Tablet PO ×3 (10:18→20:25)
[2023-02-19] MEDS: citalopram 20 mg Tablet 10 MG PO (10:18)
[2023-02-19] MEDS: bumetanide 1 mg Tablet PO (10:19)
[2023-02-19] MEDS: bisacodyl 5 mg Tablet 40 MG PO (14:09)
[2023-02-19] MEDS: peg /e-lyte soln 4,000 mL Btl 4000 ML PO (14:21)
--- NOTE | 2023-02-19 14:42 | PM.PN ---
Subjective Subjective: Hemoglobin improved to 8.5 today after blood transfusion. Patient states feeling slightly weak otherwise no new symptoms compared to yesterday. Overnight heart rate dropped down to 42. Medications: Reviewed: Yes Vitals/I&O/Wt Last Vital Signs Temp 98.0 F 02/19/23 11:51 Pulse 60 02/19/23 14:00 Resp 15 02/19/23 11:51 BP 132/58 02/19/23 11:51 Pulse Ox 95 02/19/23 11:51 O2 Del Method Room Air 02/19/23 07:06 02/18/23 02/19/23 02/19/23 22:59 06:59 14:59 Intake Total 0 / 0 100 / 100 360 / 360 Balance 0 / 0 100 / 100 360 / 360 Weight last 48 hrs Weight 46.72 kg Physical Exam Narrative: General: No acute distress, AO x3 HEENT: PERRLA, pupils bilaterally equal and reactive, pallors not present Chest: Normal vesicular breath sounds, no added sounds, equal good air entry bilaterally CVS: S1-S2 regular, no murmurs, no tachycardia, no gallops, no rubs Abdomen: Soft, nontender, no organomegaly, bowel sounds present Neuro: No focal deficits, no facial deformity, AO x3, power 5/5 in all limbs Data 02/19/23 05:17 02/19/23 05:17 A&P Assessment and plan (1) Anemia: Acute on chronic anemia with hemoglobin drop to 5.9 which is symptomatic for the patient. She reports increased generalized weakness. It appears her recent baseline 1 month ago was with hemoglobin between 8-9. Patient was recently started on Eliquis for her a provoked DVT of her left lower extremity. Hemoccult is positive in the ER. Possibly patient may have GI bleeding after being initiated on anticoagulation contributing to the acute drop. We will consult general surgery to assess for endoscopy. Hold Eliquis. Last dose taken 02/18 Continue Protonix 40 mg IV every 12 hours Clear liquid diet for now Status post 1 packed red blood cell transfusion, hb improving today per additional history from patient's daughter, patient used to be on Eliquis chronically up until 6 months ago for history of PE(uncertain if provoked or unprovoked)' Eliquis was discontinued approximately 6 months ago due to anemia. Her last endoscopy was dating 6 to 7 years ago (2) Acute GI bleeding: As above (3) DVT (deep venous thrombosis): Recent nonocclusive DVT of left peroneal and posterior tibial veins. Repeat lower extremity venous Doppler to assess for resolution of DVT If persistent DVT, may need to consider placement of IVC filter if she cannot safely continue anticoagulation with Eliquis at this time. recent CTA from 02/02 negative (4) Chronic kidney disease: On maintenance hemodialysis. Consult nephrology to maintain outpatient Monday schedule (5) Decubitus ulcer of right hip: Present on admit. She is currently undergoing wound care at the custodial. She is on wound VAC typically with 3 times a week dressing changes. Qualifiers: Pressure injury stage: stage 2 Qualified Code(s): L89.212 - Pressure ulcer of right hip, stage 2 Plan DVT ppx: Scd Full code All updates discussed with daughter at bedside Attestations Medical Necessity Statement*: planned endoscopy tomorrow, monitor HB Coding Level of Care Code Acute Code for Chg Fwd Diagnoses Anemia D64.9 Acute GI bleeding K92.2 DVT (deep venous thrombosis) I82.409 Chronic kidney disease N18.9 Decubitus ulcer of right hip L89.212 Pressure injury stage: stage 2
--- NOTE | 2023-02-19 15:44 | PM.CONSULT ---
Providers/Reason For Consult Consulting Physician/Specialty*: Dr. Hugh Gentile DO/General surgery Reason for Consult*: Anemia/melena Attending Physician: Mansi Fernandez MD Primary Care Provider: Soren Waters DO History of Present Illness History of Present Illness Milla Thomas is a 87 year old female who was recently started on Eliquis for a DVT. She presented to the hospital with weakness and difficulty in breathing. She was found to be anemic. She reports that she has had dark stools since she started the Eliquis. She denies any abdominal pain, nausea, emesis, diarrhea, constipation and/or hematochezia. Her last colonoscopy was about 10 years ago. She denies any family history of colon cancer. Review of Systems General: Reports: 10 or more systems reviewed and unremarkable except in HPI and below Medications/Allergies Home Medications Medication Instructions Recorded Confirmed Last Taken Type acetaminophen 325 mg tablet 650 mg PO Q4H PRN Pain 11/13/19 02/18/23 03/29/21 History (Tylenol) citalopram 10 mg tablet (Celexa) 10 mg PO DAILY 11/13/19 02/18/23 02/18/23 History ipratropium 0.5 mg-albuterol 3 mg 3 ml inhalation Q4H PRN Shortness 11/13/19 02/18/23 Unknown History (2.5 mg base)/3 mL nebulization Of Breath soln pantoprazole 40 mg tablet,delayed 40 mg PO BID 11/13/19 02/18/23 02/18/23 History release (Protonix) vitamin B comp no.3-folic acid 1 1 tab PO DAILY 02/25/20 02/18/23 02/18/23 History mg-vit C 60 mg-biotin 300 mcg tablet (Mary[facility] Rx) tamsulosin 0.4 mg capsule (Flomax) 0.4 mg PO BEDTIME 09/08/20 02/18/23 02/17/23 History calcium acetate(phosphat bind) 667 667 mg PO TID 03/29/21 02/18/23 02/18/23 History mg tablet bisacodyl 10 mg rectal suppository 10 mg TX DAILY PRN constipation 10/10/21 02/18/23 Unknown History cholecalciferol (vitamin D3) 25 25 mcg PO DAILY 10/10/21 02/18/23 02/18/23 History mcg (1,000 unit) capsule (Vitamin D3) elastic bandage 10/10/21 02/18/23 Unknown History elastic bandage 3 10/10/21 02/18/23 Unknown History lidocaine-prilocaine 2.5 %-2.5 % 1 applic topical .COMPLEX 10/10/21 02/18/23 Unknown History topical cream ondansetron HCl 8 mg tablet 8 mg PO TID PRN nausea and vomiting 10/10/21 02/18/23 02/01/23 History promethazine 12.5 mg rectal 12.5 mg TX Q8H PRN nausea and 10/10/21 02/18/23 Unknown History suppository vomiting simethicone 80 mg chewable tablet 80 mg PO DAILY PRN abdominal 10/10/21 02/18/23 Unknown History (Gas Relief (simethicone)) distention sodium phosphates 19 gram-7 118 ml TX DAILY PRN constipation 10/10/21 02/18/23 Unknown History gram/118 mL enema (Fleet Enema) alprazolam 0.25 mg tablet 0.25 mg PO BID PRN Anxiety 30 days 07/07/22 02/18/23 02/17/23 Rx #60 tabs bumetanide 1 mg tablet 1 mg PO .COMPLEX 01/18/23 02/18/23 02/18/23 History carvedilol 12.5 mg tablet See Rx Instructions .Route .COMPLEX 01/19/23 02/18/23 02/16/23 History oxycodone myristate 18 mg capsule 18 mg PO BID 01/19/23 02/18/23 02/18/23 History sprinkle extended release 12hr(DON'T CRUSH) (Xtampza ER) polyethylene glycol 3350 17 17 g PO DAILY PRN Constipation 01/19/23 02/18/23 Unknown History gram/dose oral powder promethazine 25 mg tablet 25 mg PO BID PRN Nausea And 01/19/23 02/18/23 Unknown History Vomiting sevelamer carbonate 800 mg tablet 800 mg PO TID 01/19/23 02/18/23 02/18/23 History simethicone 125 mg capsule See Rx Instructions .Route .COMPLEX 01/19/23 02/18/23 Unknown History carvedilol 12.5 mg tablet See Rx Instructions .Route .COMPLEX 02/01/23 02/18/23 02/17/23 History diphenoxylate-atropine 2.5 1 tab PO QID PRN Diarrhea 02/01/23 02/18/23 02/18/23 History mg-0.025 mg tablet (Lomotil) hydrocodone 10 mg-acetaminophen 1 tab PO Q4H PRN Pain 02/01/23 02/18/23 02/18/23 History 325 mg tablet loperamide 2 mg tablet 2 mg PO Q8H PRN Diarrhea 02/01/23 02/18/23 Unknown History naloxone 0.4 mg/mL injection See Rx Instructions .Route .COMPLEX 02/01/23 02/18/23 Unknown History solution witch maia 50 % topical pads 1 pad topical BID PRN Hemorrhoids 02/01/23 02/18/23 Unknown History (Hemorrhoidal (witch maia)) lidocaine 4 % topical 3XD PRN pain 02/05/23 02/18/23 02/17/23 History apixaban 5 mg tablet (Eliquis) 5 mg PO BID #120 tabs 02/07/23 02/18/23 02/18/23 Rx lactulose 10 gram/15 mL oral 30 ml PO DAILY 02/18/23 02/18/23 02/15/23 History solution (Constulose) Allergies Allergy/AdvReac Type Severity Reaction Status Date / Time amitriptyline [From Elavil] Allergy Unknown Unknown Verified 02/18/23 09:30 cyclobenzaprine Allergy Unknown Unknown Verified 02/18/23 09:30 [From Flexeril] Penicillins Allergy Unknown Unknown Verified 02/18/23 09:30 pentazocine [From Talwin] Allergy Unknown Unknown Verified 02/18/23 09:30 pregabalin [From Lyrica] Allergy Unknown Unknown Verified 02/18/23 09:30 tizanidine Allergy Unknown Unknown Verified 02/18/23 09:30 doxycycline Allergy Unknown Verified 02/18/23 09:30 morphine Allergy Unknown Verified 02/18/23 09:30 naloxone Allergy Unknown Verified 02/18/23 09:30 Sulfa (Sulfonamide Allergy Unknown Verified 02/18/23 09:30 Antibiotics) sulfamethoxazole AdvReac kidney Verified 02/18/23 09:30 [From Bactrim] trimethoprim [From Bactrim] AdvReac kidney Verified 02/18/23 09:30 Current Medications Generic Name Dose Route Start Last Admin Trade Name Fidencio PRN Reason Stop Dose Admin Hydrocodone Bitart/Acetaminophen 1 tab 02/18/23 17:43 02/19/23 10:17 Hydrocodone-Acetaminophen 10-325 Mg Tablet PO 1 tab Q4H PRN Administration Pain Alprazolam 0.25 mg 02/18/23 17:49 02/18/23 22:48 Alprazolam 0.5 Mg Tablet PO 0.25 mg BID PRN Administration Anxiety Bumetanide 1 mg 02/19/23 09:00 02/19/23 10:19 Bumetanide 1 Mg Tablet PO 1 mg [id number] CONNOR Administration Calcium Acetate 667 mg 02/18/23 21:00 02/19/23 14:24 Calcium Acetate 667 Mg Capsule PO 667 mg TID CONNOR Administration Carvedilol 12.5 mg 02/19/23 09:00 02/19/23 10:18 Carvedilol 12.5 Mg Tablet PO 12.5 mg DAILY CONNOR Administration Citalopram Hydrobromide 10 mg 02/19/23 09:00 02/19/23 10:18 Citalopram 20 Mg Tablet PO 10 mg DAILY CONNOR Administration Pantoprazole Sodium 40 mg 02/18/23 18:00 02/19/23 05:12 Pantoprazole 40 Mg Sdv IVP 40 mg Q12H CONNOR Administration Sevelamer Carbonate 800 mg 02/18/23 21:00 02/19/23 14:24 Sevelamer 800 Mg Tablet PO 800 mg TID CONNOR Administration Tamsulosin HCl 0.4 mg 02/18/23 21:00 02/18/23 20:43 Tamsulosin 0.4 Mg Capsule PO 0.4 mg BEDTIME CONNOR Administration PFSH Acute PFSH: Medical History Acetabulum fracture, left Anemia of chronic disease Anxiety and depression Chronic diarrhea DDD (degenerative disc disease) Decubitus ulcer of buttock Decubitus ulcer, buttock, right, unstageable Diastolic CHF ESRD (end stage renal disease) ESRD (end stage renal disease) on dialysis Fall Fibromyalgia GERD (gastroesophageal reflux disease) History of breast cancer Previously followed by Dr. Santoyo History of pulmonary embolus (PE) 08/2016 History of stroke 11/14/16 Hyperlipidemia Hypertension Hypoxemic respiratory failure, chronic Incomplete bladder emptying Internal and external bleeding hemorrhoids Lives in assisted living facility Low BP Lumbar spinal stenosis Non-STEMI (non-ST elevated myocardial infarction) Osteoarthritis Paroxysmal A-fib Peritoneal dialysis catheter in place Recurrent UTI Restrictive lung disease Urinary retention Urinary tract infection UTI (urinary tract infection) Surgical History History of back surgery History of esophagogastroduodenoscopy (EGD) 08/03/17 mild gastritis and duodenitis History of hemiarthroplasty of left hip 11/18/18: Dr. Mendoza History of hysterectomy History of lumpectomy of left breast History of right cataract surgery Family History Other Cancer Denies family history of Anesthesia complication Bleeding disorder Social History Second hand smoke exposure: No Alcohol intake: never Substance/Drug Use: never Adopted: No Caregiver/support person: Yes Lives independently: Yes Housing: Assisted Living Facility Marital status: Marital status details: with dementia Additional social history: FULL CODE DISCUSSED WITH PATIENT ON 02/04/20 Vitals/I&O/Wt Last Vital Signs Temp 98.0 F 02/19/23 11:51 Pulse 60 02/19/23 14:00 Resp 15 02/19/23 11:51 BP 132/58 02/19/23 11:51 Pulse Ox 95 02/19/23 11:51 O2 Del Method Room Air 02/19/23 07:06 02/19/23 02/19/23 02/19/23 06:59 14:59 22:59 Intake Total 100 / 100 360 / 360 Balance 100 / 100 360 / 360 Weight last 48 hrs Weight 103 lb Physical Exam Narrative: General : Patient is well developed , no acute distress, oriented x3 Head : Normal cephalic, a-traumatic. Ears : Pinnae and external canal are normal. Hearing is normal. Eyes : PERRLA, Sclera and injection are normal. No conjunctival discharge. Nose : Mucous membranes are without erythema. Throat : buccal mucosa is normal, gums are without significant recession or hypertrophy. Lungs : Equal chest rise bilaterally, no use of accessory muscles, trachea is midline. Cor : Rate and rhythm are normal. Abdomen : Soft, ND, NT, no g/r/m Extremities : No edema, no cyanosis or clubbing, dorsalis pedis pulses are present bilaterally, non-tender to palpation of calves. Upper extremities are normal bilaterally. Back : non-tender to palpation, no CVA tenderness. Neuro : CN II - XII intact, Upper and lower extremities have equal and full strength Data 02/19/23 05:17 02/19/23 05:17 A&P Assessment and plan (1) Acute GI bleeding: (2) Anemia: Plan Bowel prep EGD and colonoscopy tomorrow The risks and benefits of the procedure, including bleeding, infection, intestinal perforation requiring surgery, missed lesion were explained to the patient. The patient is understanding of the risks and wishes to proceed. Coding Level of Care Code 93271 Diagnoses Acute GI bleeding K92.2 Anemia D64.9
[2023-02-19] MEDS: diclofenac 1% Topical Gel 100 gm 1 APPLIC TOPICAL ×2 (16:28→20:27)
--- NOTE | 2023-02-19 17:25 | USR_ITS ---
PROCEDURE INFORMATION: Exam: US Duplex Lower Extremity Veins, Bilateral Exam date and time: 02/19/2023 10:50 AM Age: 87 years old Clinical indication: Condition or disease; Other: History of dvt in the left; Additional info: Evalaute for dvt TECHNIQUE: Imaging protocol: Real-time duplex ultrasound of the bilateral extremities with 2-D avina scale, color Doppler flow and spectral waveform analysis including responses to compression and other maneuvers (when performed) with image documentation. Complete exam focused on the lower extremity veins. COMPARISON: CT hip LT wo con* [id number] 01/18/2023 11:20 PM FINDINGS: Right deep veins: Unremarkable. The common femoral, femoral, proximal profunda femoral and popliteal veins are patent without thrombus. Normal Doppler waveforms. Normal compressibility and/or augmentation response. Left deep veins: Unremarkable. The common femoral, femoral, proximal profunda femoral and popliteal veins are patent without thrombus. Normal Doppler waveforms. Normal compressibility and/or augmentation response. Superficial veins: Bilateral saphenofemoral junctions are patent without thrombus. Soft tissues: Unremarkable. US/CV venous duplex [facility] [id number] IMPRESSION: No evidence of deep vein thrombosis.
[2023-02-19 19:44] LABS: Hematocrit 29.7 % (37.0-47.0); Hemoglobin 9.7 g/dL (11.5-15.3)
[2023-02-19] MEDS: tamsulosin 0.4 mg Capsule PO (20:25)
[2023-02-19] MEDS: ALPRAZolam 0.5 mg Tablet 0.25 MG PO (20:25)
[2023-02-19 23:07] LABS: Hepatitis B Core AB, Total Non-Reactive (Nonreactive); Hepatitis B Surface AB 34.5 (11.5-1000); Hepatitis B Surface Antigen Non-Reactive (Nonreactive)
[2023-02-20] VITALS (12 sets, daily range): BP systolic 91–175; BP diastolic 42–85; PULSE 54–75; RESP 15–19; TEMP 36.1–37.2; O2SAT 92–100
[2023-02-20] MEDS: HYDROcodone-acetaminophen 10-325 mg Tablet 1 TAB PO ×4 (02:55→22:30)
[2023-02-20 05:25] LABS: Basophils % 0.7 %; Eosinophils # 0.2 10^3/uL (0.0-0.8); Eosinophils % 3.8 %; Hematocrit 26.4 % (37.0-47.0); Hemoglobin 8.7 g/dL (11.5-15.3); Lymphocytes % 36.1 %; Mean Corpuscular Hemoglobin 32.8 pg (28.0-34.0); Mean Corpuscular Volume 99.6 fl (81-99); Mean Platelet Volume 10.1 fL (7.4-10.4); Monocytes # 0.5 10^3/uL (0.2-0.9); Monocytes % 8.8 %; Neutrophils # 2.81 10^3/uL (1.8-7.7); Neutrophils % 50.2 %; Nucleated Red Blood Cells % 0 %; Platelet Count 163 10^3/cmm (130-400); Red Blood Count 2.65 10^6/uL (4.1-5.3); Red Cell Distribution Width 23.6 % (12.1-15.1); White Blood Count 5.6 10^3/uL (4.0-10.0)
[2023-02-20] MEDS: pantoprazole 40 mg SDV IVP ×2 (05:35→17:58)
[2023-02-20 05:52] LABS: Alanine Aminotransferase 6 U/L (0-33); Alkaline Phosphatase 104 U/L (35-105); Anion Gap 16.6 (5-19); Aspartate Amino Transferase 13 U/L (0-32); Blood Urea Nitrogen 53 mg/dL (8-23); Calcium 7.7 mg/dL (8.5-10.5); Carbon Dioxide 22 mmol/L (22-29); Chloride 101 mmol/L (98-107); Globulin 1.9 g/dL (1.3-4.6); Glucose 69 mg/dL (65-115); Osmolality Calculated 295 mOsm/kg (285-295); Potassium 3.6 mmol/L (3.5-5.1); Sodium 136 mmol/L (136-145); Total Bilirubin 0.4 mg/dL (0.15-1.2); Total Protein 3.9 g/dL (6.6-8.7)
--- NOTE | 2023-02-20 09:00 | PM.PN ---
Vitals/I&O/Wt Last Vital Signs Temp 97.6 F 02/20/23 08:00 Pulse 59 L 02/20/23 08:00 Resp 15 02/20/23 08:00 BP 162/69 02/20/23 08:00 Pulse Ox 92 02/20/23 08:00 O2 Del Method Room Air 02/19/23 07:06 02/19/23 02/20/23 02/20/23 22:59 06:59 14:59 Intake Total 1200 / 1560 Balance 1200 / 1560 Weight last 48 hrs Weight 103 lb Data 02/20/23 04:51 02/20/23 04:51 A&P Assessment and plan (1) Acute GI bleeding: (2) Anemia: Plan EGD and colonoscopy tomorrow The risks and benefits of the procedure, including bleeding, infection, intestinal perforation requiring surgery, missed lesion were explained to the patient. The patient is understanding of the risks and wishes to proceed. Attestations Medical Necessity Statement*: Per primary Coding Level of Care Code Acute Code for Chg Fwd Diagnoses Acute GI bleeding K92.2 Anemia D64.9
[2023-02-20] MEDS: sodium chloride 0.9% 1,000 ML 30 ML IV (09:13)
--- NOTE | 2023-02-20 10:23 | ANES.PREANE2 ---
Pre-Anesthetic Assessment Height/Weight: Height 1.63 m Weight 46.72 kg Temp Pulse Resp BP Pulse Ox O2 Del Method 97.8 F 57 L 18 140/57 94 Room Air 02/20/23 08:35 02/20/23 08:35 02/20/23 08:35 02/20/23 08:35 02/20/23 08:35 02/20/23 08:35 Preop Diagnosis: GI bleed Operation Date: 02/20/23 09:00 Proposed Procedures p EGD(Not Applicable) - Hugh Gentile DO s Colonoscopy(Not Applicable) - Hugh Gentile DO Familial anesthetic complications: none Was Beta Mitra taken within 24 hours: N/A Was Clonidine taken within 24 hours: N/A Social No alcohol and No tobacco Exam alert and clear to auscultation bilaterally Airway Submandibular: within normal limits Cervical ROM: Other (very limited) Mallampati: Class II Dentition: partials History/ROS No significant history except as noted Pulmonary None reported CV/HEM Anemia, Congestive Heart Failure and Hypertension Chronic Renal Failure (dialysis MWF, fistula left arm) Hepatic None reported GI GI bleed Metabolic None reported Musc/skel None reported Neuropsych None reported Anesthetic Plan ASA status: 4 Anesthesia: Anesthesia Evaluation and MAC Risk of > 500 ml blood loss (7ml/kg in children): No Medications/Allergies Home Medications Medication Instructions Recorded Confirmed Last Taken Type acetaminophen 325 mg tablet 650 mg PO Q4H PRN Pain 11/13/19 02/18/23 03/29/21 History (Tylenol) citalopram 10 mg tablet (Celexa) 10 mg PO DAILY 11/13/19 02/18/23 02/18/23 History ipratropium 0.5 mg-albuterol 3 mg 3 ml inhalation Q4H PRN Shortness 11/13/19 02/18/23 Unknown History (2.5 mg base)/3 mL nebulization Of Breath soln pantoprazole 40 mg tablet,delayed 40 mg PO BID 11/13/19 02/18/23 02/18/23 History release (Protonix) vitamin B comp no.3-folic acid 1 1 tab PO DAILY 02/25/20 02/18/23 02/18/23 History mg-vit C 60 mg-biotin 300 mcg tablet (Marybel-Eugenio Rx) tamsulosin 0.4 mg capsule (Flomax) 0.4 mg PO BEDTIME 09/08/20 02/18/23 02/17/23 History calcium acetate(phosphat bind) 667 667 mg PO TID 03/29/21 02/18/23 02/18/23 History mg tablet bisacodyl 10 mg rectal suppository 10 mg HI DAILY PRN constipation 10/10/21 02/18/23 Unknown History cholecalciferol (vitamin D3) 25 25 mcg PO DAILY 10/10/21 02/18/23 02/18/23 History mcg (1,000 unit) capsule (Vitamin D3) elastic bandage 10/10/21 02/18/23 Unknown History elastic bandage 3 10/10/21 02/18/23 Unknown History lidocaine-prilocaine 2.5 %-2.5 % 1 applic topical .COMPLEX 10/10/21 02/18/23 Unknown History topical cream ondansetron HCl 8 mg tablet 8 mg PO TID PRN nausea and vomiting 10/10/21 02/18/23 02/01/23 History promethazine 12.5 mg rectal 12.5 mg HI Q8H PRN nausea and 10/10/21 02/18/23 Unknown History suppository vomiting simethicone 80 mg chewable tablet 80 mg PO DAILY PRN abdominal 10/10/21 02/18/23 Unknown History (Gas Relief (simethicone)) distention sodium phosphates 19 gram-7 118 ml HI DAILY PRN constipation 10/10/21 02/18/23 Unknown History gram/118 mL enema (Fleet Enema) alprazolam 0.25 mg tablet 0.25 mg PO BID PRN Anxiety 30 days 07/07/22 02/18/23 02/17/23 Rx #60 tabs bumetanide 1 mg tablet 1 mg PO .COMPLEX 01/18/23 02/18/23 02/18/23 History carvedilol 12.5 mg tablet See Rx Instructions .Route .COMPLEX 01/19/23 02/18/23 02/16/23 History oxycodone myristate 18 mg capsule 18 mg PO BID 01/19/23 02/18/23 02/18/23 History sprinkle extended release 12hr(DON'T CRUSH) (Xtampza ER) polyethylene glycol 3350 17 17 g PO DAILY PRN Constipation 01/19/23 02/18/23 Unknown History gram/dose oral powder promethazine 25 mg tablet 25 mg PO BID PRN Nausea And 01/19/23 02/18/23 Unknown History Vomiting sevelamer carbonate 800 mg tablet 800 mg PO TID 01/19/23 02/18/23 02/18/23 History simethicone 125 mg capsule See Rx Instructions .Route .COMPLEX 01/19/23 02/18/23 Unknown History carvedilol 12.5 mg tablet See Rx Instructions .Route .COMPLEX 02/01/23 02/18/23 02/17/23 History diphenoxylate-atropine 2.5 1 tab PO QID PRN Diarrhea 02/01/23 02/18/23 02/18/23 History mg-0.025 mg tablet (Lomotil) hydrocodone 10 mg-acetaminophen 1 tab PO Q4H PRN Pain 02/01/23 02/18/23 02/18/23 History 325 mg tablet loperamide 2 mg tablet 2 mg PO Q8H PRN Diarrhea 02/01/23 02/18/23 Unknown History naloxone 0.4 mg/mL injection See Rx Instructions .Route .COMPLEX 02/01/23 02/18/23 Unknown History solution witch maia 50 % topical pads 1 pad topical BID PRN Hemorrhoids 02/01/23 02/18/23 Unknown History (Hemorrhoidal (witch maia)) lidocaine 4 % topical 3XD PRN pain 02/05/23 02/18/23 02/17/23 History apixaban 5 mg tablet (Eliquis) 5 mg PO BID #120 tabs 02/07/23 02/18/23 02/18/23 Rx lactulose 10 gram/15 mL oral 30 ml PO DAILY 02/18/23 02/18/23 02/15/23 History solution (Constulose) Allergies Allergy/AdvReac Type Severity Reaction Status Date / Time amitriptyline [From Elavil] Allergy Unknown Unknown Verified 02/18/23 09:30 cyclobenzaprine Allergy Unknown Unknown Verified 02/18/23 09:30 [From Flexeril] Penicillins Allergy Unknown Unknown Verified 02/18/23 09:30 pentazocine [From Talwin] Allergy Unknown Unknown Verified 02/18/23 09:30 pregabalin [From Lyrica] Allergy Unknown Unknown Verified 02/18/23 09:30 tizanidine Allergy Unknown Unknown Verified 02/18/23 09:30 doxycycline Allergy Unknown Verified 02/18/23 09:30 morphine Allergy Unknown Verified 02/18/23 09:30 naloxone Allergy Unknown Verified 02/18/23 09:30 Sulfa (Sulfonamide Allergy Unknown Verified 02/18/23 09:30 Antibiotics) sulfamethoxazole AdvReac kidney Verified 02/18/23 09:30 [From Bactrim] trimethoprim [From Bactrim] AdvReac kidney Verified 02/18/23 09:30 Current Medications Generic Name Dose Route Start Last Admin Trade Name Freq PRN Reason Stop Dose Admin Hydrocodone Bitart/Acetaminophen 1 tab 02/18/23 17:43 02/20/23 02:55 Hydrocodone-Acetaminophen 10-325 Mg Tablet PO 1 tab Q4H PRN Administration Pain Alprazolam 0.25 mg 02/18/23 17:49 02/19/23 20:25 Alprazolam 0.5 Mg Tablet PO 0.25 mg BID PRN Administration Anxiety Bumetanide 1 mg 02/19/23 09:00 02/19/23 10:19 Bumetanide 1 Mg Tablet PO 1 mg SuTuThSa CONNOR Administration Calcium Acetate 667 mg 02/18/23 21:00 02/19/23 20:25 Calcium Acetate 667 Mg Capsule PO 667 mg TID CONNOR Administration Carvedilol 12.5 mg 02/19/23 09:00 02/19/23 10:18 Carvedilol 12.5 Mg Tablet PO 12.5 mg DAILY CONNOR Administration Citalopram Hydrobromide 10 mg 02/19/23 09:00 02/19/23 10:18 Citalopram 20 Mg Tablet PO 10 mg DAILY CONNOR Administration Diclofenac Sodium 1 applic 02/19/23 17:00 02/19/23 20:27 Diclofenac 1% Topical Gel 100 Gm TOPICAL 1 applic QID CONNOR Administration Sodium Chloride 1,000 mls @ 30 mls/hr 02/20/23 08:45 02/20/23 09:13 Sodium Chloride 0.9% IV 02/21/23 08:44 30 mls/hr .Q24H CONNOR Administration Pantoprazole Sodium 40 mg 02/18/23 18:00 02/20/23 05:35 Pantoprazole 40 Mg Sdv IVP 40 mg Q12H CONNOR Administration Sevelamer Carbonate 800 mg 02/18/23 21:00 02/19/23 20:25 Sevelamer 800 Mg Tablet PO 800 mg TID CONNOR Administration Tamsulosin HCl 0.4 mg 02/18/23 21:00 02/19/23 20:25 Tamsulosin 0.4 Mg Capsule PO 0.4 mg BEDTIME CONNOR Administration PFSH Anesthesia Medical History Acetabulum fracture, left Anemia of chronic disease Anxiety and depression Chronic diarrhea DDD (degenerative disc disease) Decubitus ulcer of buttock Decubitus ulcer, buttock, right, unstageable Diastolic CHF ESRD (end stage renal disease) ESRD (end stage renal disease) on dialysis Fall Fibromyalgia GERD (gastroesophageal reflux disease) History of breast cancer Previously followed by Dr. Santoyo History of pulmonary embolus (PE) 08/2016 History of stroke 11/14/16 Hyperlipidemia Hypertension Hypoxemic respiratory failure, chronic Incomplete bladder emptying Internal and external bleeding hemorrhoids Lives in assisted living facility Low BP Lumbar spinal stenosis Non-STEMI (non-ST elevated myocardial infarction) Osteoarthritis Paroxysmal A-fib Peritoneal dialysis catheter in place Recurrent UTI Restrictive lung disease Urinary retention Urinary tract infection UTI (urinary tract infection) Surgical History History of back surgery History of esophagogastroduodenoscopy (EGD) 08/03/17 mild gastritis and duodenitis History of hemiarthroplasty of left hip 11/18/18: Dr. Mendoza History of hysterectomy History of lumpectomy of left breast History of right cataract surgery Family History Other Cancer Denies family history of Anesthesia complication Bleeding disorder Social History Second hand smoke exposure: No Alcohol intake: never Substance/Drug Use: never Adopted: No Caregiver/support person: Yes Lives independently: Yes Housing: Assisted Living Facility Marital status: Marital status details: with dementia Additional social history: FULL CODE DISCUSSED WITH PATIENT ON 02/04/20 Data Anesthesia 02/20/23 04:51 02/20/23 04:51 Short CBC 02/18/23 02/18/23 02/19/23 Range/Units 10:06 18:03 05:17 WBC 4.8 4.7 (4.0-10.0) 10^3/uL Hgb 5.9 L* 9.0 L D 8.5 L (11.5-15.3) g/dL Hct 19.4 L* 26.7 L D 26.3 L (37.0-47.0) % MCV 121.3 H 102.7 H D (81-99) fl Plt Count 164 149 (130-400) 10^3/cmm Neut % (Auto) 56.7 41.2 % Neut # (Auto) 2.70 1.95 (1.8-7.7) 10^3/uL 02/19/23 02/20/23 Range/Units 19:32 04:51 WBC 5.6 (4.0-10.0) 10^3/uL Hgb 9.7 L 8.7 L (11.5-15.3) g/dL Hct 29.7 L 26.4 L (37.0-47.0) % MCV 99.6 H (81-99) fl Plt Count 163 (130-400) 10^3/cmm Neut % (Auto) 50.2 % Neut # (Auto) 2.81 (1.8-7.7) 10^3/uL BMP 02/18/23 02/19/23 02/20/23 10:06 05:17 04:51 Sodium 136 138 136 Potassium 3.6 4.0 3.6 Chloride 102 104 101 Carbon Dioxide 24 22 22 BUN 38 H 48 H 53 H Creatinine 3.7 H 4.2 H 4.6 H Glucose 108 75 69 Calcium 7.8 L 7.9 L 7.7 L Liver Function 02/18/23 02/19/23 02/20/23 Range/Units 10:06 05:17 04:51 Total Bilirubin 0.4 0.5 0.4 (0.15-1.2) mg/dL AST 11 15 13 (0-32) U/L ALT 6 7 6 (0-33) U/L Alkaline Phosphatase 113 H 114 H 104 (35-105) U/L Albumin 2.3 L 2.0 L 2.0 L (3.5-5.2) g/dL Blood Bank 02/18/23 10:06 Blood Type O Positive Rho(D) Type Positive Antibody Screen Negative Cardiac Studies: Echocardiogram 02/02/23 Sestamibi Stress Test (Cardiology) 02/05/23
--- NOTE | 2023-02-20 10:30 | PM.CONSULT ---
Providers/Reason For Consult Consulting Physician/Specialty*: [facility]/Nephrology Reason for Consult*: ESRD Attending Physician: Dedrick Rodriguez Primary Care Provider: Soren Waters DO History of Present Illness History of Present Illness Milla Thomas is a 87 year old female Patient is a 87-year-old female with past medical history of end-stage renal disease on hemodialysis per [facility] schedule, recent hospital stay for urinary pelvic fracture, history of DVT and was started on Eliquis recently. Patient was sent back to the emergency department due to generalized weakness and hemoglobin was noted to be 5.9. Patient underwent endoscopy today which showed erosive gastritis. Colonoscopy was not performed. Patient underwent hemodialysis today and tolerated well. Currently denies any complaints. Review of Systems Narrative: oTHER ROS NEGATIVE Medications/Allergies Home Medications Medication Instructions Recorded Confirmed Last Taken Type acetaminophen 325 mg tablet 650 mg PO Q4H PRN Pain 11/13/19 02/18/23 03/29/21 History (Tylenol) citalopram 10 mg tablet (Celexa) 10 mg PO DAILY 11/13/19 02/18/23 02/18/23 History ipratropium 0.5 mg-albuterol 3 mg 3 ml inhalation Q4H PRN Shortness 11/13/19 02/18/23 Unknown History (2.5 mg base)/3 mL nebulization Of Breath soln pantoprazole 40 mg tablet,delayed 40 mg PO BID 11/13/19 02/18/23 02/18/23 History release (Protonix) vitamin B comp no.3-folic acid 1 1 tab PO DAILY 02/25/20 02/18/23 02/18/23 History mg-vit C 60 mg-biotin 300 mcg tablet (Marybel-Eugenio Rx) tamsulosin 0.4 mg capsule (Flomax) 0.4 mg PO BEDTIME 09/08/20 02/18/23 02/17/23 History calcium acetate(phosphat bind) 667 667 mg PO TID 03/29/21 02/18/23 02/18/23 History mg tablet bisacodyl 10 mg rectal suppository 10 mg NE DAILY PRN constipation 10/10/21 02/18/23 Unknown History cholecalciferol (vitamin D3) 25 25 mcg PO DAILY 10/10/21 02/18/23 02/18/23 History mcg (1,000 unit) capsule (Vitamin D3) elastic bandage 10/10/21 02/18/23 Unknown History elastic bandage 3 10/10/21 02/18/23 Unknown History lidocaine-prilocaine 2.5 %-2.5 % 1 applic topical .COMPLEX 10/10/21 02/18/23 Unknown History topical cream ondansetron HCl 8 mg tablet 8 mg PO TID PRN nausea and vomiting 10/10/21 02/18/23 02/01/23 History promethazine 12.5 mg rectal 12.5 mg NE Q8H PRN nausea and 10/10/21 02/18/23 Unknown History suppository vomiting simethicone 80 mg chewable tablet 80 mg PO DAILY PRN abdominal 10/10/21 02/18/23 Unknown History (Gas Relief (simethicone)) distention sodium phosphates 19 gram-7 118 ml NE DAILY PRN constipation 10/10/21 02/18/23 Unknown History gram/118 mL enema (Fleet Enema) alprazolam 0.25 mg tablet 0.25 mg PO BID PRN Anxiety 30 days 07/07/22 02/18/23 02/17/23 Rx #60 tabs bumetanide 1 mg tablet 1 mg PO .COMPLEX 01/18/23 02/18/23 02/18/23 History carvedilol 12.5 mg tablet See Rx Instructions .Route .COMPLEX 01/19/23 02/18/23 02/16/23 History oxycodone myristate 18 mg capsule 18 mg PO BID 01/19/23 02/18/23 02/18/23 History sprinkle extended release 12hr(DON'T CRUSH) (Xtampza ER) polyethylene glycol 3350 17 17 g PO DAILY PRN Constipation 01/19/23 02/18/23 Unknown History gram/dose oral powder promethazine 25 mg tablet 25 mg PO BID PRN Nausea And 01/19/23 02/18/23 Unknown History Vomiting sevelamer carbonate 800 mg tablet 800 mg PO TID 01/19/23 02/18/23 02/18/23 History simethicone 125 mg capsule See Rx Instructions .Route .COMPLEX 01/19/23 02/18/23 Unknown History carvedilol 12.5 mg tablet See Rx Instructions .Route .COMPLEX 02/01/23 02/18/23 02/17/23 History diphenoxylate-atropine 2.5 1 tab PO QID PRN Diarrhea 02/01/23 02/18/23 02/18/23 History mg-0.025 mg tablet (Lomotil) hydrocodone 10 mg-acetaminophen 1 tab PO Q4H PRN Pain 02/01/23 02/18/23 02/18/23 History 325 mg tablet loperamide 2 mg tablet 2 mg PO Q8H PRN Diarrhea 02/01/23 02/18/23 Unknown History naloxone 0.4 mg/mL injection See Rx Instructions .Route .COMPLEX 02/01/23 02/18/23 Unknown History solution witch maia 50 % topical pads 1 pad topical BID PRN Hemorrhoids 02/01/23 02/18/23 Unknown History (Hemorrhoidal (witch maia)) lidocaine 4 % topical 3XD PRN pain 02/05/23 02/18/23 02/17/23 History apixaban 5 mg tablet (Eliquis) 5 mg PO BID #120 tabs 02/07/23 02/18/23 02/18/23 Rx lactulose 10 gram/15 mL oral 30 ml PO DAILY 02/18/23 02/18/23 02/15/23 History solution (Constulose) Allergies Allergy/AdvReac Type Severity Reaction Status Date / Time amitriptyline [From Elavil] Allergy Unknown Unknown Verified 02/18/23 09:30 cyclobenzaprine Allergy Unknown Unknown Verified 02/18/23 09:30 [From Flexeril] Penicillins Allergy Unknown Unknown Verified 02/18/23 09:30 pentazocine [From Talwin] Allergy Unknown Unknown Verified 02/18/23 09:30 pregabalin [From Lyrica] Allergy Unknown Unknown Verified 02/18/23 09:30 tizanidine Allergy Unknown Unknown Verified 02/18/23 09:30 doxycycline Allergy Unknown Verified 02/18/23 09:30 morphine Allergy Unknown Verified 02/18/23 09:30 naloxone Allergy Unknown Verified 02/18/23 09:30 Sulfa (Sulfonamide Allergy Unknown Verified 02/18/23 09:30 Antibiotics) sulfamethoxazole AdvReac kidney Verified 02/18/23 09:30 [From Bactrim] trimethoprim [From Bactrim] AdvReac kidney Verified 02/18/23 09:30 Current Medications Generic Name Dose Route Start Last Admin Trade Name Fidencio PRN Reason Stop Dose Admin Hydrocodone Bitart/Acetaminophen 1 tab 02/18/23 17:43 02/20/23 02:55 Hydrocodone-Acetaminophen 10-325 Mg Tablet PO 1 tab Q4H PRN Administration Pain Alprazolam 0.25 mg 02/18/23 17:49 02/19/23 20:25 Alprazolam 0.5 Mg Tablet PO 0.25 mg BID PRN Administration Anxiety Bumetanide 1 mg 02/19/23 09:00 02/19/23 10:19 Bumetanide 1 Mg Tablet PO 1 mg SuTuThSa CONNOR Administration Calcium Acetate 667 mg 02/18/23 21:00 02/19/23 20:25 Calcium Acetate 667 Mg Capsule PO 667 mg TID CONNOR Administration Carvedilol 12.5 mg 02/19/23 09:00 02/19/23 10:18 Carvedilol 12.5 Mg Tablet PO 12.5 mg DAILY CONNOR Administration Citalopram Hydrobromide 10 mg 02/19/23 09:00 02/19/23 10:18 Citalopram 20 Mg Tablet PO 10 mg DAILY CONNOR Administration Diclofenac Sodium 1 applic 02/19/23 17:00 02/19/23 20:27 Diclofenac 1% Topical Gel 100 Gm TOPICAL 1 applic QID CONNOR Administration Sodium Chloride 1,000 mls @ 30 mls/hr 02/20/23 08:45 02/20/23 09:13 Sodium Chloride 0.9% IV 02/21/23 08:44 30 mls/hr .Q24H CONNOR Administration Pantoprazole Sodium 40 mg 02/18/23 18:00 02/20/23 05:35 Pantoprazole 40 Mg Sdv IVP 40 mg Q12H CONNOR Administration Sevelamer Carbonate 800 mg 02/18/23 21:00 02/19/23 20:25 Sevelamer 800 Mg Tablet PO 800 mg TID CONNOR Administration Tamsulosin HCl 0.4 mg 02/18/23 21:00 02/19/23 20:25 Tamsulosin 0.4 Mg Capsule PO 0.4 mg BEDTIME CONNOR Administration PFSH Acute PFSH: Medical History Acetabulum fracture, left Anemia of chronic disease Anxiety and depression Chronic diarrhea DDD (degenerative disc disease) Decubitus ulcer of buttock Decubitus ulcer, buttock, right, unstageable Diastolic CHF ESRD (end stage renal disease) ESRD (end stage renal disease) on dialysis Fall Fibromyalgia GERD (gastroesophageal reflux disease) History of breast cancer Previously followed by Dr. Santoyo History of pulmonary embolus (PE) 08/2016 History of stroke 11/14/16 Hyperlipidemia Hypertension Hypoxemic respiratory failure, chronic Incomplete bladder emptying Internal and external bleeding hemorrhoids Lives in assisted living facility Low BP Lumbar spinal stenosis Non-STEMI (non-ST elevated myocardial infarction) Osteoarthritis Paroxysmal A-fib Peritoneal dialysis catheter in place Recurrent UTI Restrictive lung disease Urinary retention Urinary tract infection UTI (urinary tract infection) Surgical History History of back surgery History of esophagogastroduodenoscopy (EGD) 08/03/17 mild gastritis and duodenitis History of hemiarthroplasty of left hip 11/18/18: Dr. Mendoza History of hysterectomy History of lumpectomy of left breast History of right cataract surgery Family History Other Cancer Denies family history of Anesthesia complication Bleeding disorder Social History Second hand smoke exposure: No Alcohol intake: never Substance/Drug Use: never Adopted: No Caregiver/support person: Yes Lives independently: Yes Housing: Assisted Living Facility Marital status: Marital status details: with dementia Additional social history: FULL CODE DISCUSSED WITH PATIENT ON 02/04/20 Vitals/I&O/Wt Last Vital Signs Temp 97.8 F 02/20/23 08:35 Pulse 57 L 02/20/23 08:35 Resp 18 02/20/23 08:35 BP 140/57 02/20/23 08:35 Pulse Ox 94 02/20/23 08:35 O2 Del Method Room Air 02/20/23 08:35 02/19/23 02/20/23 02/20/23 22:59 06:59 14:59 Intake Total 1200 / 1560 Balance 1200 / 1560 Physical Exam Narrative: awake , alert no distress S1 S2 RRR per report lujngs clear per report no edema Data 02/20/23 04:51 02/20/23 04:51 A&P Assessment and plan (1) ESRD (end stage renal disease): Plan 1. End-stage renal disease: On MWF schedule as outpatient, will continue dialysis. UF as tolerated. 2. History of hypertension: Blood pressure controlled 3. Anemia: Multifactorial GI bleed and anemia of chronic disease -Status post transfusions, will order МАРИНА -Status post EGD 4. Recent DVT Pt evaluated using audiovisual cart. Time spent 40 min Consult Attestations Medical Necessity Statement: per report Coding Level of Care Code Acute Code for Chg Fwd Diagnoses ESRD (end stage renal disease) N18.6
[2023-02-20] MEDS: HYDROmorphone 1 mg/mL INJ 1 mL 0.5 MG IVP (12:08)
--- NOTE | 2023-02-20 14:11 | P.PN_ITS ---
Subjective Subjective: She says she is not feeling the best. She has been having some pain in the right hip having to be still for dialysis. Denies abdominal pain, no chest pain. Vitals/I&O/Wt Last Vital Signs Temp 97.5 F L 02/20/23 11:07 Pulse 75 02/20/23 11:07 Resp 18 02/20/23 12:08 BP 175/77 02/20/23 11:07 Pulse Ox 100 02/20/23 10:30 O2 Del Method Room Air 02/20/23 10:30 FiO2 6 02/20/23 10:15 02/19/23 02/20/23 02/20/23 22:59 06:59 14:59 Intake Total 1200 / 1560 106 / 106 Balance 1200 / 1560 106 / 106 Physical Exam Narrative: Undergoing dialysis Const: COMMON NORMALS: patient oriented x3 and alert GENERAL APPEARANCE: cooperative ORIENTATION/CONSCIOUSNESS: Yes awake HENMT: COMMON NORMALS: oropharynx normal Neck/C-Spine: COMMON NORMALS: no JVD Resp: COMMON NORMALS: normal respiratory effort and clear to auscultation bilaterally AUSCULTATION: clear to auscultation bilaterally Cardio: COMMON NORMALS: no JVD, regular rhythm, S1 normal heart sound present, S2 normal heart sound present and No murmurs present (Cardio) RHYTHM: regular rhythm HEART SOUNDS: S1 normal heart sound present and S2 normal heart sound present GI: COMMON NORMALS: Normal to inspection, nondistended, normoactive bowel sounds present, Soft to palpation and non-tender PALPATION: Yes Soft to palpation Extremity: COMMON NORMALS: no joint enlargement and no pedal edema Neuro: COMMON NORMALS: patient oriented x3 and moves all extremities SENSORIUM/ORIENTATION: Yes alert Skin: COMMON NORMALS: no rashes or lesions noted GENERAL SKIN EXAM: no rashes or lesions noted Data 02/20/23 04:51 02/20/23 04:51 A&P Assessment and plan (1) Acute GI bleeding: Underwent EGD. Discussed with surgery, noted moderate localized gastritis. R isk of rebleeding at current time. Continue to withhold anticoagulation. At risk of DVT, PE. Per discussion with surgery with hold at least 3 days. Discussed with her lower extremity duplex noted negative for DVT. Consideration of discontinuation of anticoagulation entirely given recurrent GI bleed. She has both at risk of rebleeding, but also at risk of additional clot. At risk of potentially severe and/or life-threatening complications. She will further discuss with her daughters for consideration of further steps after the next several days. Continue PPI. Surgery added sucralfate as well. Noted hemoglobin 9.7, MCV 99.6, platelets 163. Reassess blood counts. Received 2 units RBC transfusion. (2) Anemia: Symptomatic anemia, as above. Reassess blood counts. It appears her recent baseline 1 month ago was with hemoglobin between 8-9. Patient was recently started on Eliquis for her a provoked DVT of her left lower extremity. Hemoccult positive in the ER. Received 2 units RBC. per additional history from patient's daughter, patient used to be on Eliquis chronically up until 6 months ago for history of PE(uncertain if provoked or unprovoked)' Eliquis was discontinued approximately 6 months ago due to anemia. Her last endoscopy was dating 6 to 7 years ago (3) DVT (deep venous thrombosis): Lower extremity venous duplex obtained, noted negative for DVT. Recent nonocclusive DVT of left peroneal and posterior tibial veins. Repeat lower extremity venous Doppler to assess for resolution of DVT If persistent DVT, may need to consider placement of IVC filter if she cannot safely continue anticoagulation with Eliquis at this time. recent CTA from 02/02 negative (4) Chronic kidney disease: BUN 53, creatinine 4.6. Bicarb 22. Anion gap 16.6. Potassium 2.6. Chloride 101. Sodium 136. Noted nephrology documentation. Undergoing dialysis. Continue as per schedule. Follow-up chemistry. On maintenance hemodialysis. Consult nephrology to maintain outpatient Monday schedule (5) Decubitus ulcer of right hip: Continue wound care. Pain management. Present on admit. [facility] She is on wound VAC typically with 3 times a week dressing changes. Qualifiers: Pressure injury stage: stage 2 Qualified Code(s): L89.212 - Pressure ulcer of right hip, stage 2 Plan DVT ppx: Scd Full code Discussed with case management. Attestations Medical Necessity Statement*: Continue admission for assessment management of acute GI bleeding,_bleeding, and lady with recent DVT, at risk of further blood clots in a lady with ESRD, advanced age. Diagnoses Acute GI bleeding K92.2 Anemia D64.9 DVT (deep venous thrombosis) I82.409 Chronic kidney disease N18.9 Decubitus ulcer of right hip L89.212 Pressure injury stage: stage 2
[2023-02-20] MEDS: calcium acetate 667 mg Capsule PO ×2 (14:42→20:10)
[2023-02-20] MEDS: sevelamer 800 mg Tablet PO ×2 (14:42→20:10)
[2023-02-20] MEDS: sucralfate 1 gm/10 mL Oral Liq UDC PO ×2 (17:11→20:10)
[2023-02-20 18:30] LABS: Hemoglobin 10.5 g/dL (11.5-15.3)
[2023-02-20] MEDS: tamsulosin 0.4 mg Capsule PO (20:10)
[2023-02-20] MEDS: ALPRAZolam 0.5 mg Tablet 0.25 MG PO (22:29)
[2023-02-21] VITALS (9 sets, daily range): BP systolic 100–125; BP diastolic 40–55; PULSE 56–67; RESP 14–19; TEMP 36.3–37; O2SAT 91–95
[2023-02-21] MEDS: ondansetron 2 mg/ML SDV 2 mL 4 MG IVP ×3 (01:32→17:21)
[2023-02-21] MEDS: HYDROcodone-acetaminophen 10-325 mg Tablet 1 TAB PO ×3 (02:41→20:56)
[2023-02-21] MEDS: pantoprazole 40 mg SDV IVP ×2 (06:01→17:17)
[2023-02-21] MEDS: sucralfate 1 gm/10 mL Oral Liq UDC PO ×4 (06:01→20:55)
[2023-02-21 06:36] LABS: Basophils # 0.1 10^3/uL (0.0-0.1); Basophils % 0.5 %; Eosinophils # 0.1 10^3/uL (0.0-0.8); Eosinophils % 0.6 %; Hematocrit 34.7 % (37.0-47.0); Hemoglobin 11.3 g/dL (11.5-15.3); Lymphocytes # 2.1 10^3/uL (0.8-4.8); Lymphocytes % 14.5 %; Mean Corpuscular HGB Conc 32.6 g/dL (30.0-36.0); Mean Corpuscular Volume 101.5 fl (81-99); Mean Platelet Volume 10.6 fL (7.4-10.4); Monocytes # 0.8 10^3/uL (0.2-0.9); Monocytes % 5.4 %; Neutrophils # 11.51 10^3/uL (1.8-7.7); Neutrophils % 78.7 %; Nucleated Red Blood Cells % 0 %; Platelet Count 202 10^3/cmm (130-400); Red Blood Count 3.42 10^6/uL (4.1-5.3); Red Cell Distribution Width 23.2 % (12.1-15.1); White Blood Count 14.6 10^3/uL (4.0-10.0)
[2023-02-21 07:22] LABS: Blood Urea Nitrogen 31 mg/dL (8-23); Calcium 8.5 mg/dL (8.5-10.5); Carbon Dioxide 23 mmol/L (22-29); Chloride 98 mmol/L (98-107); Glucose 66 mg/dL (65-115); Osmolality Calculated 287 mOsm/kg (285-295); Sodium 136 mmol/L (136-145)
[2023-02-21 07:23] LABS: Anion Gap 19.2 (5-19); Potassium 4.2 mmol/L (3.5-5.1)
--- NOTE | 2023-02-21 08:05 | PM.PN ---
Subjective Subjective: no new complaints Medications: Reviewed: Yes Vitals/I&O/Wt Last Vital Signs Temp 97.5 F L 02/21/23 07:41 Pulse 60 02/21/23 07:41 Resp 18 02/21/23 07:41 BP 100/42 02/21/23 07:41 Pulse Ox 94 02/21/23 07:41 O2 Del Method Room Air 02/21/23 07:41 FiO2 6 02/20/23 10:15 02/20/23 02/21/23 02/21/23 22:59 06:59 14:59 Intake Total 120 / 526 100 / 626 Balance 120 / -1774 100 / -1674 Weight last 48 hrs Weight 56 kg Physical Exam Narrative: awake , alert no distress S1 S2 RRR per report lujngs clear per report no edema Data 02/21/23 05:56 02/21/23 05:56 A&P Assessment and plan (1) ESRD (end stage renal disease): Plan 1. End-stage renal disease: On MWF schedule as outpatient, will continue dialysis. UF as tolerated. 2. History of hypertension: Blood pressure controlled 3. Anemia: Multifactorial GI bleed and anemia of chronic disease -Status post transfusions, will order МАРИНА -Status post EGD 4. Recent DVT Pt evaluated using audiovisual cart. Time spent 40 min Attestations Medical Necessity Statement*: per medicine Coding Level of Care Code Acute Code for Chg Fwd Diagnoses ESRD (end stage renal disease) N18.6
[2023-02-21] MEDS: calcium acetate 667 mg Capsule PO ×3 (08:39→20:56)
[2023-02-21] MEDS: citalopram 20 mg Tablet 10 MG PO (08:39)
[2023-02-21] MEDS: carvedilol 12.5 mg Tablet PO (08:39)
[2023-02-21] MEDS: sevelamer 800 mg Tablet PO ×3 (08:40→20:55)
--- NOTE | 2023-02-21 09:42 | PC.CHAP ---
Pastoral Care Encounter/Spiritual Assessment Type of Contact [] Declined residential installer visit [] Patient/Family/Request visit [] Outpatient visit [] Follow-up visit [] Physician referral [] Code/Alert [x Routine visit [] Staff referral [] Actively dying [] Patient sleeping [] Family support [] [] Out of room [] Palliative care [] [] Receiving care in room [] Pre-surgical visit [] Trauma [] Long length of stay [] ICU visit [] Other: Relational/Emotional Strength [x] Patient feels connected with others/family/visitors/staff [] Distress [] Loneliness/isolation [] Abandonment Spirituality of Patient [x] Person of Carolee [] Attends Taoist of their Carolee [x] Believes in Prayer [] Reads Bible or Tenriism materials [] There are Spiritual issues to be addressed Physician Industrial Interventions [x] Prayer [x] Active listening [] Non-anxious presence [x] Spiritual/emotional support [] Crisis/trauma care [] Spiritual counseling [] Bereavement support [] Provided bereavement packet [] Provided Bible/devotional materials [] Provided toy/stuffed animal, coloring book to patient or family member [] Provided Communion [] Anointing/Driscoll [] Salvation [x] Completed spiritual assessment [] Other: Impact on Illness or Injury [] Angry [] Fearful [] Anxious [] Often cries [] Exhaustion [] Unable to work [] Unable to attend mormon [] Unable to walk/stand [] Unable to read [] Unable to drive [] Unable to eat/drink [] Unable to sleep [] Unable to be with family [] Patient intubated [] Other: Summary Time spent with patient 5 min
--- NOTE | 2023-02-21 14:12 | P.PN_ITS ---
Subjective Subjective: This morning she is somewhat nauseated. Today she seems to be bothered more by her left hip. Vitals/I&O/Wt Last Vital Signs Temp 97.5 F L 02/21/23 11:49 Pulse 56 L 02/21/23 11:49 Resp 19 H 02/21/23 11:49 BP 100/40 02/21/23 11:49 Pulse Ox 93 02/21/23 11:49 O2 Del Method Nasal Cannula 02/21/23 11:49 FiO2 6 02/20/23 10:15 02/20/23 02/21/23 02/21/23 22:59 06:59 14:59 Intake Total 120 / 526 100 / 626 Balance 120 / -1774 100 / -1674 Weight last 48 hrs Weight 56 kg Physical Exam Const: COMMON NORMALS: patient oriented x3 and alert GENERAL APPEARANCE: cooperative ORIENTATION/CONSCIOUSNESS: Yes awake HENMT: COMMON NORMALS: oropharynx normal Neck/C-Spine: COMMON NORMALS: no JVD Resp: COMMON NORMALS: normal respiratory effort and clear to auscultation bilaterally AUSCULTATION: clear to auscultation bilaterally Cardio: COMMON NORMALS: no JVD, regular rhythm, S1 normal heart sound present, S2 normal heart sound present and No murmurs present (Cardio) RHYTHM: regular rhythm HEART SOUNDS: S1 normal heart sound present and S2 normal heart sound present GI: COMMON NORMALS: Normal to inspection, nondistended, normoactive bowel sounds present, Soft to palpation and non-tender PALPATION: Yes Soft to palpation Extremity: COMMON NORMALS: no joint enlargement and no pedal edema NARRATIVE EXTREMITY EXAM: No erythema, swelling or bruising on the left hip. Neuro: COMMON NORMALS: patient oriented x3 and moves all extremities SENSORIUM/ORIENTATION: Yes alert Skin: COMMON NORMALS: no rashes or lesions noted GENERAL SKIN EXAM: no rashes or lesions noted Data 02/21/23 05:56 02/21/23 05:56 A&P Assessment and plan (1) Acute GI bleeding: Today still nauseated secondary to gastritis. Continue PPI. Sucralfate. Trial of oral intake. Discussed with her and her daughter hemoglobin noted 11.3. Platelets 202. Some rise across all cell lines, WBC up to 14.6. For now continue to withhold anticoagulation. Vascular surgery may consider resuming after 3 days. Discussed with her, patient defers decision to her daughter, discussed with daughter. Certainly there is concern of rebleeding. 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 Discussed consideration of options of not resuming anticoagulation, resumption of anticoagulation, resumption of low-dose anticoagulation. For now consensus seems to be to trial resuming lower dose anticoagulation at 2.5 mg twice daily Eliquis. Underwent EGD, noted moderate localized gastritis. Risk of rebleeding at current time. Continue to withhold anticoagulation. At risk of DVT, PE. Per discussion with surgery with hold at least 3 days. Discussed with her lower extremity duplex noted negative for DVT. Consideration of discontinuation of anticoagulation entirely given recurrent GI bleed. She has both at risk of rebleeding, but also at risk of additional clot. At risk of potentially severe and/or life-threatening complications. She will further discuss with her daughters for consideration of further steps after the next several days. Continue PPI. Surgery added sucralfate as well. Stop diclofenac. (2) Anemia: As above Symptomatic anemia, as above. Reassess blood counts. It appears her recent baseline 1 month ago was with hemoglobin between 8-9. Patient was recently started on Eliquis for her a provoked DVT of her left lower extremity. Hemoccult positive in the ER. Received 2 units RBC. per additional history from patient's daughter, patient used to be on Eliquis chronically up until 6 months ago for history of PE(uncertain if provoked or unprovoked)' Eliquis was discontinued approximately 6 months ago due to anemia. Her last endoscopy was dating 6 to 7 years ago (3) DVT (deep venous thrombosis): Lower extremity venous duplex obtained, noted negative for DVT. Recent nonocclusive DVT of left peroneal and posterior tibial veins. Repeat lower extremity venous Doppler to assess for resolution of DVT If persistent DVT, may need to consider placement of IVC filter if she cannot safely continue anticoagulation with Eliquis at this time. recent CTA from 02/02 negative (4) Chronic kidney disease: After dialysis noted BUN 31, creatinine 3.6, anion gap 19.2, bicarb 23. Potassium 4.2. Possible discharge tomorrow depending on condition, likely after dialysis. Nephrology documentation appreciated. Undergoing dialysis. Continue as per schedule. Follow-up chemistry. On maintenance hemodialysis. Consult nephrology to maintain outpatient Monday schedule (5) Decubitus ulcer of right hip: Continue wound care. Pain management. Present on admit. [facility] She is on wound VAC typically with 3 times a week dressing changes. Qualifiers: Pressure injury stage: stage 2 Qualified Code(s): L89.212 - Pressure ulcer of right hip, stage 2 Plan Bradycardia: Reduce Coreg dose to 3.125 4 times a week. DVT ppx: Scd Full code Discussed with case management, updated on possible discharge tomorrow. Attestations Medical Necessity Statement*: Continue admission for reassessment of gastritis, with persistent symptoms, nausea, trial of oral intake, reassessment of blood counts consideration of resumption of low-dose anticoagulation in a lady with recent DVT, advanced age, recent hip fracture, risk of clotting, risk of rebleed. Diagnoses Acute GI bleeding K92.2 Anemia D64.9 DVT (deep venous thrombosis) I82.409 Chronic kidney disease N18.9 Decubitus ulcer of right hip L89.212 Pressure injury stage: stage 2
[2023-02-21] MEDS: tamsulosin 0.4 mg Capsule PO (20:56)
[2023-02-21] MEDS: ALPRAZolam 0.5 mg Tablet 0.25 MG PO (20:56)
[2023-02-22] VITALS (12 sets, daily range): BP systolic 100–122; BP diastolic 41–57; PULSE 52–66; RESP 14–17; TEMP 36.4–37; O2SAT 91–96
[2023-02-22 05:25] LABS: Basophils % 0.5 %; Eosinophils # 0.1 10^3/uL (0.0-0.8); Eosinophils % 1.2 %; Hematocrit 27.1 % (37.0-47.0); Hemoglobin 8.7 g/dL (11.5-15.3); Lymphocytes # 2.3 10^3/uL (0.8-4.8); Lymphocytes % 28.4 %; Mean Corpuscular HGB Conc 32.1 g/dL (30.0-36.0); Mean Corpuscular Hemoglobin 33.2 pg (28.0-34.0); Mean Corpuscular Volume 103.4 fl (81-99); Mean Platelet Volume 10.2 fL (7.4-10.4); Monocytes # 0.6 10^3/uL (0.2-0.9); Monocytes % 7.7 %; Neutrophils # 4.99 10^3/uL (1.8-7.7); Nucleated Red Blood Cells % 0 %; Platelet Count 164 10^3/cmm (130-400); Red Blood Count 2.62 10^6/uL (4.1-5.3); Red Cell Distribution Width 22.5 % (12.1-15.1); White Blood Count 8.1 10^3/uL (4.0-10.0)
[2023-02-22] MEDS: sucralfate 1 gm/10 mL Oral Liq UDC PO ×4 (05:43→21:30)
[2023-02-22] MEDS: acetaminophen 325 mg Tablet 650 MG PO (05:43)
[2023-02-22 05:49] LABS: Anion Gap 20.1 (5-19); Blood Urea Nitrogen 42 mg/dL (8-23); Calcium 7.9 mg/dL (8.5-10.5); Carbon Dioxide 21 mmol/L (22-29); Chloride 99 mmol/L (98-107); Glucose 62 mg/dL (65-115); Osmolality Calculated 290 mOsm/kg (285-295); Potassium 4.1 mmol/L (3.5-5.1); Sodium 136 mmol/L (136-145)
[2023-02-22] MEDS: pantoprazole 40 mg SDV IVP ×2 (05:52→17:34)
[2023-02-22] MEDS: sevelamer 800 mg Tablet PO ×3 (08:50→21:31)
[2023-02-22] MEDS: calcium acetate 667 mg Capsule PO ×3 (08:50→21:31)
[2023-02-22] MEDS: citalopram 20 mg Tablet 10 MG PO (08:50)
[2023-02-22] MEDS: HYDROcodone-acetaminophen 10-325 mg Tablet 1 TAB PO ×4 (08:51→21:30)
[2023-02-22] MEDS: albumin 12.5 GM/50 ML VIAL IV ×2 (09:50→09:51)
--- NOTE | 2023-02-22 09:51 | PC.NURSE ---
Dialysis, pt is in dialysis.
--- NOTE | 2023-02-22 10:07 | PM.PN ---
Subjective Subjective: getting HD Medications: Reviewed: Yes Vitals/I&O/Wt Last Vital Signs Temp 98.6 F 02/22/23 10:01 Pulse 57 L 02/22/23 10:01 Resp 16 02/22/23 10:01 BP 106/43 02/22/23 10:01 Pulse Ox 92 02/22/23 06:57 O2 Del Method Room Air 02/22/23 06:57 FiO2 6 02/20/23 10:15 02/21/23 02/22/23 02/22/23 22:59 06:59 14:59 Intake Total 61 / 61 Balance 61 / 61 Weight last 48 hrs Weight 56 kg Physical Exam Narrative: awake , alert no distress S1 S2 RRR per report lujngs clear per report no edema Data 02/22/23 04:57 02/22/23 04:57 A&P Assessment and plan (1) ESRD (end stage renal disease): Plan 1. End-stage renal disease: On MWF schedule as outpatient, will continue dialysis. UF as tolerated. 2. History of hypertension: Blood pressure controlled 3. Anemia: Multifactorial GI bleed and anemia of chronic disease -Status post transfusions, will order МАРИНА -Status post EGD 4. Recent DVT Pt evaluated using audiovisual cart. Time spent 40 min Attestations Medical Necessity Statement*: PER MEDICINE Coding Level of Care Code Acute Code for Chg Fwd Diagnoses ESRD (end stage renal disease) N18.6
[2023-02-22] MEDS: epoetin alfa 1000 Unit/0.05 mL (non-esrd) 20000 UNIT SUBCUT (11:24)
[2023-02-22 15:54] LABS: Hemoglobin 9.5 g/dL (11.5-15.3)
--- NOTE | 2023-02-22 20:31 | PM.PN ---
Subjective Subjective: She states she is doing not the best, but all right. Denies any new ache or pain. Vitals/I&O/Wt Last Vital Signs Temp 98.6 F 02/22/23 15:48 Pulse 61 02/22/23 15:48 Resp 17 02/22/23 15:48 BP 122/50 02/22/23 15:48 Pulse Ox 94 02/22/23 15:48 O2 Del Method Room Air 02/22/23 15:48 FiO2 6 02/20/23 10:15 02/22/23 02/22/23 02/22/23 06:59 14:59 22:59 Intake Total 751 / 751 240 / 991 Output Total 2900 / 2900 Balance -2149 / -2149 240 / -1909 Weight last 48 hrs Weight 53 kg Physical Exam Narrative: Undergoing dialysis Const: COMMON NORMALS: patient oriented x3 and alert GENERAL APPEARANCE: cooperative ORIENTATION/CONSCIOUSNESS: Yes awake HENMT: COMMON NORMALS: oropharynx normal Neck/C-Spine: COMMON NORMALS: no JVD Resp: COMMON NORMALS: normal respiratory effort and clear to auscultation bilaterally AUSCULTATION: clear to auscultation bilaterally Cardio: COMMON NORMALS: no JVD, regular rhythm, S1 normal heart sound present, S2 normal heart sound present and No murmurs present (Cardio) RHYTHM: regular rhythm HEART SOUNDS: S1 normal heart sound present and S2 normal heart sound present GI: COMMON NORMALS: Normal to inspection, nondistended, normoactive bowel sounds present, Soft to palpation and non-tender PALPATION: Yes Soft to palpation Extremity: COMMON NORMALS: no joint enlargement and no pedal edema Neuro: COMMON NORMALS: patient oriented x3 and moves all extremities SENSORIUM/ORIENTATION: Yes alert Data 02/22/23 13:50 02/22/23 04:57 A&P Assessment and plan (1) Acute GI bleeding: today noted hemoglobin decreased down to 8.7. Discussed with her, will hold off for now and restarting on anticoagulation, undergoing dialysis, recheck hemoglobin later tonight, better at 9.5. We will recheck additional value in the morning. Continue PPI. Continue sucralfate. Continue trial of oral intake. Counts noted today WBC 8.1, platelets down to 164. Suspect at least some component of delusional decrease in counts, but may have some slow GI bleeding ongoing. Nausea has resolved. At risk of DVT. Discharge deferred for today. Discussed with case management. For now continue to withhold anticoagulation. Per discussion with surgery may consider resuming after 3 days. Discussed with her, patient defers decision to her daughter, discussed with daughter. Certainly there is concern of rebleeding. 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 Discussed consideration of options of not resuming anticoagulation, resumption of anticoagulation, resumption of low-dose anticoagulation. For now consensus seems to be to trial resuming lower dose anticoagulation at 2.5 mg twice daily Eliquis. Underwent EGD, noted moderate localized gastritis. Risk of rebleeding at current time. Continue to withhold anticoagulation. At risk of DVT, PE. Per discussion with surgery with hold at least 3 days. Discussed with her lower extremity duplex noted negative for DVT. Consideration of discontinuation of anticoagulation entirely given recurrent GI bleed. She has both at risk of rebleeding, but also at risk of additional clot. At risk of potentially severe and/or life-threatening complications. She will further discuss with her daughters for consideration of further steps after the next several days. Stop diclofenac. (2) Anemia: As above Symptomatic anemia, as above. Reassess blood counts. It appears her recent baseline 1 month ago was with hemoglobin between 8-9. Patient was recently started on Eliquis for her a provoked DVT of her left lower extremity. Hemoccult positive in the ER. Received 2 units RBC. per additional history from patient's daughter, patient used to be on Eliquis chronically up until 6 months ago for history of PE(uncertain if provoked or unprovoked)' Eliquis was discontinued approximately 6 months ago due to anemia. Her last endoscopy was dating 6 to 7 years ago (3) DVT (deep venous thrombosis): Lower extremity venous duplex obtained, noted negative for DVT. Recent nonocclusive DVT of left peroneal and posterior tibial veins. Repeat lower extremity venous Doppler to assess for resolution of DVT If persistent DVT, may need to consider placement of IVC filter if she cannot safely continue anticoagulation with Eliquis at this time. recent CTA from 02/02 negative (4) Chronic kidney disease: Hemodialysis today. Noted nephrology documentation. Renal parameters noted creatinine 4.6, BUN 42, anion gap 20.1, bicarb 21. Potassium 4.1 Possible discharge tomorrow depending on condition, likely after dialysis. Nephrology documentation appreciated. Undergoing dialysis. Continue as per schedule. Follow-up chemistry. On maintenance hemodialysis. Consult nephrology to maintain outpatient Monday schedule (5) Decubitus ulcer of right hip: Continue wound care. Pain management. Present on admit. [facility] She is on wound VAC typically with 3 times a week dressing changes. Qualifiers: Pressure injury stage: stage 2 Qualified Code(s): L89.212 - Pressure ulcer of right hip, stage 2 Plan Bradycardia: Improved. Continue Reduced Coreg dose to 3.125 4 times a week. Pressure sore in the left hip/sacrum, reported stage II. Apply foam dressing, Continue repositioning. Add nutritional supplements DVT ppx: Scd Full code Discussed with case management, updated on possible discharge tomorrow. Attestations Medical Necessity Statement*: Continue admission for reassessment of gastritis, with persistent symptoms, nausea, trial of oral intake, reassessment of blood counts consideration of resumption of low-dose anticoagulation in a lady with recent DVT, advanced age, recent hip fracture, risk of clotting, risk of rebleed. Diagnoses Acute GI bleeding K92.2 Anemia D64.9 DVT (deep venous thrombosis) I82.409 Chronic kidney disease N18.9 Decubitus ulcer of right hip L89.212 Pressure injury stage: stage 2
[2023-02-22] MEDS: ALPRAZolam 0.5 mg Tablet 0.25 MG PO (21:30)
[2023-02-22] MEDS: tamsulosin 0.4 mg Capsule PO (21:31)
[2023-02-23] VITALS (9 sets, daily range): BP systolic 106–126; BP diastolic 43–68; PULSE 60–75; RESP 16–18; TEMP 36.9–37.1; O2SAT 93–96
[2023-02-23 05:17] LABS: Basophils % 0.4 %; Eosinophils # 0.1 10^3/uL (0.0-0.8); Eosinophils % 1.6 %; Hematocrit 26.3 % (37.0-47.0); Hemoglobin 8.3 g/dL (11.5-15.3); Lymphocytes # 1.5 10^3/uL (0.8-4.8); Lymphocytes % 19.5 %; Mean Corpuscular HGB Conc 31.6 g/dL (30.0-36.0); Mean Corpuscular Hemoglobin 32.7 pg (28.0-34.0); Mean Corpuscular Volume 103.5 fl (81-99); Mean Platelet Volume 9.9 fL (7.4-10.4); Monocytes # 0.6 10^3/uL (0.2-0.9); Monocytes % 7.5 %; Neutrophils # 5.28 10^3/uL (1.8-7.7); Neutrophils % 70.7 %; Nucleated Red Blood Cells % 0 %; Platelet Count 164 10^3/cmm (130-400); Red Blood Count 2.54 10^6/uL (4.1-5.3); Red Cell Distribution Width 21.7 % (12.1-15.1); White Blood Count 7.5 10^3/uL (4.0-10.0)
[2023-02-23] MEDS: pantoprazole 40 mg SDV IVP ×2 (05:19→17:49)
[2023-02-23 05:33] LABS: Anion Gap 12.6 (5-19); Blood Urea Nitrogen 26 mg/dL (8-23); Calcium 8.1 mg/dL (8.5-10.5); Carbon Dioxide 27 mmol/L (22-29); Chloride 100 mmol/L (98-107); Glucose 96 mg/dL (65-115); Osmolality Calculated 287 mOsm/kg (285-295); Potassium 3.6 mmol/L (3.5-5.1); Sodium 136 mmol/L (136-145)
[2023-02-23] MEDS: HYDROcodone-acetaminophen 10-325 mg Tablet 1 TAB PO ×3 (05:36→21:14)
[2023-02-23] MEDS: sucralfate 1 gm/10 mL Oral Liq UDC PO ×3 (05:37→17:49)
[2023-02-23] MEDS: calcium acetate 667 mg Capsule PO ×3 (08:59→21:14)
[2023-02-23] MEDS: citalopram 20 mg Tablet 10 MG PO (09:00)
[2023-02-23] MEDS: sevelamer 800 mg Tablet PO ×3 (09:01→21:13)
[2023-02-23] MEDS: bumetanide 1 mg Tablet PO (09:01)
--- NOTE | 2023-02-23 09:34 | P.PN_ITS ---
Subjective Subjective: no new complaints Medications: Reviewed: Yes Vitals/I&O/Wt Last Vital Signs Temp 98.7 F 02/23/23 07:55 Pulse 62 02/23/23 07:55 Resp 17 02/23/23 07:55 BP 118/61 02/23/23 07:55 Pulse Ox 96 02/23/23 07:55 O2 Del Method Room Air 02/23/23 03:22 FiO2 6 02/20/23 10:15 02/22/23 02/23/23 02/23/23 22:59 06:59 14:59 Intake Total 240 / 991 730 / 1721 Balance 240 / -1909 730 / -1179 Weight last 48 hrs Weight 53 kg Physical Exam Narrative: awake , alert no distress S1 S2 RRR per report lujngs clear per report no edema Data 02/23/23 04:47 02/23/23 04:47 A&P Assessment and plan (1) ESRD (end stage renal disease): Plan 1. End-stage renal disease: On MWF schedule as outpatient, will continue dialysis. UF as tolerated. 2. History of hypertension: Blood pressure controlled 3. Anemia: Multifactorial GI bleed and anemia of chronic disease -Status post transfusions, s/p МАРИНА -Status post EGD 4. Recent DVT Pt evaluated using audiovisual cart. Time spent 40 min Attestations 2 Medical Necessity Statement*: per medicine Coding Level of Care Code Acute Code for Chg Fwd Diagnoses ESRD (end stage renal disease) N18.6
[2023-02-23] MEDS: carvedilol 6.25 mg Tablet 3.125 MG PO ×2 (09:35→21:14)
[2023-02-23 10:56] LABS: Blood Urine 3+ (Negative); Glucose Urine UA Norm (Normal); Ketones Urine Negative (Negative); Protein Urine 2+ (Negative); Urine Appearance Cloudy (CLEAR); Urine Color Yellow (Yellow); pH Urine 7 (5-7)
[2023-02-23 10:57] LABS: Add Urine Microscopic? YES; Bilirubin Urine Neg (Negative); Leukocyte Esterase Urine 2+ (Negative); Nitrate Urine Negative (Negative); Urobilinogen Urine Norm (Negative)
[2023-02-23 11:09] LABS: Bacteria Urine 4+ /hpf; RBC Urine 50-80 /hpf (0-2); Squamous Epithelial Cell Urine 0-4 /hpf (0-5); WBC Urine >100 /hpf (0-5)
[2023-02-23 11:10] LABS: Add Urine Culture? Yes; Mucus Urine 2+ /hpf
[2023-02-23 11:23] LABS: Hemoglobin 8.2 g/dL (11.5-15.3)
--- NOTE | 2023-02-23 11:40 | PC.SOCIAL ---
IMM Update pg 2 of IMM updated and reviewed w/ patient. Copy provided and Copy in chart dated and initialed.
[2023-02-23] MEDS: ciprofloxacin 500 mg Tablet 250 MG PO (12:36)
[2023-02-23] MEDS: ondansetron 2 mg/ML SDV 2 mL 4 MG IVP (14:04)
[2023-02-23] MEDS: tamsulosin 0.4 mg Capsule PO (21:13)
[2023-02-23] MEDS: ALPRAZolam 0.5 mg Tablet 0.25 MG PO (21:14)
--- NOTE | 2023-02-24 00:22 | PM.PN ---
Subjective Subjective: She reports she is doing okay today. Noted to have opaque appearing urine earlier in the day. Vitals/I&O/Wt Last Vital Signs Temp 98.7 F 02/23/23 19:50 Pulse 60 02/23/23 19:50 Resp 17 02/23/23 19:50 BP 115/43 02/23/23 19:50 Pulse Ox 94 02/23/23 19:50 O2 Del Method Room Air 02/23/23 03:22 FiO2 6 02/20/23 10:15 02/23/23 02/23/23 02/24/23 14:59 22:59 06:59 Intake Total 600 / 600 240 / 840 Balance 600 / 600 240 / 840 Weight last 48 hrs Weight 53 kg Physical Exam Const: COMMON NORMALS: patient oriented x3 and alert GENERAL APPEARANCE: cooperative ORIENTATION/CONSCIOUSNESS: Yes awake HENMT: COMMON NORMALS: oropharynx normal Neck/C-Spine: COMMON NORMALS: no JVD Resp: COMMON NORMALS: normal respiratory effort and clear to auscultation bilaterally AUSCULTATION: clear to auscultation bilaterally Cardio: COMMON NORMALS: no JVD, regular rhythm, S1 normal heart sound present, S2 normal heart sound present and No murmurs present (Cardio) RHYTHM: regular rhythm HEART SOUNDS: S1 normal heart sound present and S2 normal heart sound present GI: COMMON NORMALS: Normal to inspection, nondistended, normoactive bowel sounds present, Soft to palpation and non-tender PALPATION: Yes Soft to palpation Extremity: COMMON NORMALS: no joint enlargement and no pedal edema NARRATIVE EXTREMITY EXAM: No erythema, swelling or bruising on the left hip. Neuro: COMMON NORMALS: patient oriented x3 and moves all extremities SENSORIUM/ORIENTATION: Yes alert Skin: COMMON NORMALS: no rashes or lesions noted GENERAL SKIN EXAM: no rashes or lesions noted Data 02/23/23 11:08 02/23/23 04:47 A&P Assessment and plan (1) Acute GI bleeding: Hemoglobin was further decreased to 8.2 on recheck this afternoon. Deferred discharge, will reassess again. For now hold off anticoagulation. Discussed with discharge planning. Platelets noted 164. MCV 103.5. Continue trial of oral intake. Continue PPI, sucralfate. Still nauseated today, given additional dose of Zofran. At risk of DVT. Discharge deferred for today. Discussed with case management. For now continue to withhold anticoagulation. Per discussion with surgery may consider resuming after 3 days. Discussed with her, patient defers decision to her daughter, discussed with daughter. Certainly there is concern of rebleeding. 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 Discussed consideration of options of not resuming anticoagulation, resumption of anticoagulation, resumption of low-dose anticoagulation. For now consensus seems to be to trial resuming lower dose anticoagulation at 2.5 mg twice daily Eliquis. Underwent EGD, noted moderate localized gastritis. Risk of rebleeding at current time. Continue to withhold anticoagulation. At risk of DVT, PE. Per discussion with surgery with hold at least 3 days. Discussed with her lower extremity duplex noted negative for DVT. Consideration of discontinuation of anticoagulation entirely given recurrent GI bleed. She has both at risk of rebleeding, but also at risk of additional clot. At risk of potentially severe and/or life-threatening complications. She will further discuss with her daughters for consideration of further steps after the next several days. Stop diclofenac. (2) Anemia: As above Symptomatic anemia, as above. Reassess blood counts. It appears her recent baseline 1 month ago was with hemoglobin between 8-9. Patient was recently started on Eliquis for her a provoked DVT of her left lower extremity. Hemoccult positive in the ER. Received 2 units RBC. per additional history from patient's daughter, patient used to be on Eliquis chronically up until 6 months ago for history of PE(uncertain if provoked or unprovoked)' Eliquis was discontinued approximately 6 months ago due to anemia. Her last endoscopy was dating 6 to 7 years ago (3) DVT (deep venous thrombosis): Lower extremity venous duplex obtained, noted negative for DVT. Recent nonocclusive DVT of left peroneal and posterior tibial veins. Repeat lower extremity venous Doppler to assess for resolution of DVT If persistent DVT, may need to consider placement of IVC filter if she cannot safely continue anticoagulation with Eliquis at this time. recent CTA from 02/02 negative (4) Chronic kidney disease: Hemodialysis today. Noted nephrology documentation. Renal parameters noted creatinine 4.6, BUN 42, anion gap 20.1, bicarb 21. Potassium 4.1 Possible discharge tomorrow depending on condition, likely after dialysis. Nephrology documentation appreciated. Undergoing dialysis. Continue as per schedule. Follow-up chemistry. On maintenance hemodialysis. Consult nephrology to maintain outpatient Monday schedule (5) Decubitus ulcer of right hip: Continue wound care. Pain management. Present on admit. She is currently undergoing [facility] care at the group home. She is on wound VAC typically with 3 times a week dressing changes. Qualifiers: Pressure injury stage: stage 2 Qualified Code(s): L89.212 - Pressure ulcer of right hip, stage 2 Plan Bradycardia: Improved. Continue Reduced Coreg dose to 3.125 4 times a week. Pressure sore in the left hip/sacrum, reported stage II. Apply foam dressing, Continue repositioning. Add nutritional supplements Additional possible contusion versus stage I pressure sore noted on left calf, unclear if possible after SCDs. Discussed with nursing staff to leave SCDs off of the left leg. DVT ppx: Scd Full code Discussed with case management, updated on possible discharge tomorrow. Attestations Medical Necessity Statement*: Continue admission for assessment management of acute anemia, at risk of DVT, at risk of bleeding. Diagnoses Acute GI bleeding K92.2 Anemia D64.9 DVT (deep venous thrombosis) I82.409 Chronic kidney disease N18.9 Decubitus ulcer of right hip L89.212 Pressure injury stage: stage 2
[2023-02-24 04:33] VITALS: BP 110/54; PULSE 61; RESP 16; TEMP 37; O2SAT 94
[2023-02-24 05:05] LABS: Basophils % 0.3 %; Eosinophils # 0.1 10^3/uL (0.0-0.8); Eosinophils % 1.6 %; Hematocrit 26.3 % (37.0-47.0); Hemoglobin 8.5 g/dL (11.5-15.3); Lymphocytes # 1.6 10^3/uL (0.8-4.8); Lymphocytes % 23.5 %; Mean Corpuscular HGB Conc 32.3 g/dL (30.0-36.0); Mean Corpuscular Volume 105.2 fl (81-99); Mean Platelet Volume 10.3 fL (7.4-10.4); Monocytes # 0.5 10^3/uL (0.2-0.9); Monocytes % 7.8 %; Neutrophils % 66.2 %; Nucleated Red Blood Cells % 0 %; Platelet Count 169 10^3/cmm (130-400); Red Cell Distribution Width 21.8 % (12.1-15.1); White Blood Count 6.9 10^3/uL (4.0-10.0)
[2023-02-24] MEDS: pantoprazole 40 mg SDV IVP (05:05)
[2023-02-24 05:29] LABS: Blood Urea Nitrogen 34 mg/dL (8-23); Calcium 8.1 mg/dL (8.5-10.5); Carbon Dioxide 27 mmol/L (22-29); Chloride 100 mmol/L (98-107); Glucose 105 mg/dL (65-115); Osmolality Calculated 290 mOsm/kg (285-295); Sodium 136 mmol/L (136-145)
[2023-02-24] MEDS: sucralfate 1 gm/10 mL Oral Liq UDC PO ×2 (05:35→12:52)
[2023-02-24] MEDS: HYDROcodone-acetaminophen 10-325 mg Tablet 1 TAB PO ×2 (05:36→12:53)
[2023-02-24 05:43] VITALS: PULSE 60
[2023-02-24 06:12] LABS: SARS Covid-2 Antigen negative (Negative)
[2023-02-24 07:26] VITALS: BP 117/59; PULSE 55; RESP 16; TEMP 36.6; O2SAT 95
[2023-02-24] MEDS: calcium acetate 667 mg Capsule PO (08:58)
[2023-02-24] MEDS: citalopram 20 mg Tablet 10 MG PO (08:58)
[2023-02-24] MEDS: sevelamer 800 mg Tablet PO (08:58)
--- NOTE | 2023-02-24 10:01 | PM.PN ---
Subjective Subjective: getting hD Medications: Reviewed: Yes Vitals/I&O/Wt Last Vital Signs Temp 97.8 F 02/24/23 07:26 Pulse 55 L 02/24/23 07:26 Resp 16 02/24/23 07:26 BP 117/59 02/24/23 07:26 Pulse Ox 95 02/24/23 07:26 O2 Del Method Room Air 02/24/23 07:26 FiO2 6 02/20/23 10:15 02/23/23 02/24/23 02/24/23 22:59 06:59 14:59 Intake Total 340 / 940 120 / 1060 Balance 340 / 940 120 / 1060 Weight last 48 hrs Weight 53 kg Physical Exam Narrative: awake , alert no distress S1 S2 RRR per report lujngs clear per report no edema Data 02/24/23 04:19 02/24/23 04:19 A&P Assessment and plan (1) ESRD (end stage renal disease): Plan 1. End-stage renal disease: On MWF schedule as outpatient, will continue dialysis. UF as tolerated. 2. History of hypertension: Blood pressure controlled 3. Anemia: Multifactorial GI bleed and anemia of chronic disease -Status post transfusions, s/p МАРИНА -Status post EGD 4. Recent DVT Pt evaluated using audiovisual cart. Time spent 40 min Attestations Medical Necessity Statement*: PER MEDICINE Coding Level of Care Code Acute Code for Chg Fwd Diagnoses ESRD (end stage renal disease) N18.6
--- NOTE | 2023-02-24 11:59 | P.DS_ITS ---
Discharge Providers Date of Admission: 02/18/23 12:45 Date of Discharge: February 24, 2023 Attending Provider at Admission: Mansi Fernandez MD Attending Provider at Discharge: Dedrick Rodriguez Primary Care Provider: Soren Waters DO Diagnoses at Discharge Discharge Diagnosis (1) ESRD (end stage renal disease): Status: Acute Reason for Visit Reason for Visit: LOW HEMAGLOBLIN Hospital Course Hospital Course Pleasant 87-year-old lady recently with a fracture, DVT, discharged on anticoagulation with Eliquis, return to the hospital with weakness, difficulty breathing, found to have symptomatic anemia, with dark stools, found to have GI bleeding, Eliquis stopped, treated with IV PPI, seen by surgery, underwent EGD found to have moderate gastritis, additionally monitored in the hospital off anticoagulation with some further gradual decrease in hemoglobin, altogether received 2 units RBC transfusions. Sucralfate was added to PPI. Transiently had nausea vomiting, vomiting resolved, some mild nausea still intermittently. Difficulty of situation decision discussed with her as well as her daughter with regards to recent hip fracture, DVT, risk of further DVT, but at the same time risk of rebleeding in case of resumption of anticoagulation. As per discussion with surgery anticoagulation to be held for 3 days. We went through a number of different options including no anticoagulation, expectant approach, consideration of IVC filter, but there was concern of going through additional procedure, consideration of resumption of full anticoagulation, consensus arrived on was resuming anticoagulation at lower dose and reduce frequency with Eliquis 2.5 mg daily, still with understanding that there could be some risk of rebleeding. For now resumed on Eliquis 2.5 mg daily. Please reassess CBC on Monday, monitor for any further signs of bleeding. Reassess when Eliquis dose can be escalated wood heel back liner to therapeutic. She proceeded to continue her rehabilitation at SNF to attempt to mobilize better due to further risks of decubitus ulcers. Continue management of decub ulcer including noted stage II pressure injury on the left thigh/sacrum. Reposition frequently. Add nutritional supplements. With carvedilol 12.5 mg heart rates were getting into 50s, blood pressure soft, carvedilol dose decreased to 3.125 mg with improvement. Physical Exam Narrative: Undergoing dialysis Const: COMMON NORMALS: patient oriented x3 and alert GENERAL APPEARANCE: cooperative ORIENTATION/CONSCIOUSNESS: Yes awake HENMT: COMMON NORMALS: oropharynx normal Neck/C-Spine: COMMON NORMALS: no JVD Resp: COMMON NORMALS: normal respiratory effort and clear to auscultation bilaterally AUSCULTATION: clear to auscultation bilaterally Cardio: COMMON NORMALS: no JVD, regular rhythm, S1 normal heart sound present, S2 normal heart sound present and No murmurs present (Cardio) RHYTHM: regular rhythm HEART SOUNDS: S1 normal heart sound present and S2 normal heart sound present GI: COMMON NORMALS: Normal to inspection, nondistended, normoactive bowel sounds present, Soft to palpation and non-tender PALPATION: Yes Soft to palpation Extremity: COMMON NORMALS: no joint enlargement and no pedal edema NARRATIVE EXTREMITY EXAM: Bruise L lateral calf Neuro: COMMON NORMALS: patient oriented x3 and moves all extremities SENSORIUM/ORIENTATION: Yes alert Discharge Data Studies Completed and Pending Completed Studies During Hospitalization Category Date Time Status Pathology: Surgical [PTH] Routine Pth 02/20/23 10:24 [place] [id number] Routine Ultrasound 02/19/23 17:25 Completed Pending at discharge Category Date Time Status Basic Metabolic Panel AM LABS Lab 02/25/23 04:00 Ordered Basic Metabolic Panel AM LABS Lab 02/26/23 04:00 Ordered Complete Blood Count w/Auto AM LABS Lab 02/25/23 04:00 Ordered Complete Blood Count w/Auto AM LABS Lab 02/26/23 04:00 Ordered Urine Culture Routine Lab 02/23/23 10:30 Results Radiology Impressions Venous Duplex 02/19/23 17:25 IMPRESSION: No evidence of deep vein thrombosis. Laboratory Results WBC 6.9 10^3/uL (4.0-10.0) 02/24/23 04:19 RBC 2.50 10^6/uL (4.1-5.3) L 02/24/23 04:19 Hgb 8.5 g/dL (11.5-15.3) L 02/24/23 04:19 Hct 26.3 % (37.0-47.0) L 02/24/23 04:19 MCV 105.2 fl (81-99) H 02/24/23 04:19 MCH 34.0 pg (28.0-34.0) 02/24/23 04:19 MCHC 32.3 g/dL (30.0-36.0) 02/24/23 04:19 RDW 21.8 % (12.1-15.1) H 02/24/23 04:19 Plt Count 169 10^3/cmm (130-400) 02/24/23 04:19 MPV 10.3 fL (7.4-10.4) 02/24/23 04:19 Neut % (Auto) 66.2 % 02/24/23 04:19 Lymph % (Auto) 23.5 % 02/24/23 04:19 [place] % (Auto) 7.8 % 02/24/23 04:19 Eos % (Auto) 1.6 % 02/24/23 04:19 Baso % (Auto) 0.3 % 02/24/23 04:19 Neut # (Auto) 4.60 10^3/uL (1.8-7.7) 02/24/23 04:19 Lymph # (Auto) 1.6 10^3/uL (0.8-4.8) 02/24/23 04:19 [place] # (Auto) 0.5 10^3/uL (0.2-0.9) 02/24/23 04:19 Eos # (Auto) 0.1 10^3/uL (0.0-0.8) 02/24/23 04:19 Baso # (Auto) 0.0 10^3/uL (0.0-0.1) 02/24/23 04:19 Nucleated RBC % (auto) 0 % 02/24/23 04:19 Nucleated RBCs # 0.0 /100WBC 02/24/23 04:19 Sodium 136 mmol/L (136-145) 02/24/23 04:19 Potassium 4.0 mmol/L (3.5-5.1) 02/24/23 04:19 Chloride 100 mmol/L (98-107) 02/24/23 04:19 Carbon Dioxide 27 mmol/L (22-29) 02/24/23 04:19 Anion Gap 13.0 (5-19) 02/24/23 04:19 BUN 34 mg/dL (8-23) H 02/24/23 04:19 Creatinine 4.2 mg/dL (0.5-0.9) H 02/24/23 04:19 GFR Calculation Not Reportable 02/24/23 04:19 Glucose 105 mg/dL (65-115) 02/24/23 04:19 Calculated Osmolality 290 mOsm/kg (285-295) 02/24/23 04:19 Calcium 8.1 mg/dL (8.5-10.5) L 02/24/23 04:19 Total Bilirubin 0.4 mg/dL (0.15-1.2) 02/20/23 04:51 AST 13 U/L (0-32) 02/20/23 04:51 ALT 6 U/L (0-33) 02/20/23 04:51 Alkaline Phosphatase 104 U/L (35-105) 02/20/23 04:51 Total Protein 3.9 g/dL (6.6-8.7) L 02/20/23 04:51 Albumin 2.0 g/dL (3.5-5.2) L 02/20/23 04:51 Globulin 1.9 g/dL (1.3-4.6) 02/20/23 04:51 Urine Color Yellow (Yellow) 02/23/23 10:30 Urine Appearance Cloudy (CLEAR) A 02/23/23 10:30 Urine pH 7 (5-7) 02/23/23 10:30 Ur Specific [place] 1.010 (1.005-1.030) 02/23/23 10:30 Urine Protein 2+ (Negative) H 02/23/23 10:30 Urine Glucose (UA) Norm (Normal) 02/23/23 10:30 Urine Ketones Negative (Negative) 02/23/23 10:30 Urine Blood 3+ (Negative) H 02/23/23 10:30 Urine Nitrate Negative (Negative) 02/23/23 10:30 Urine Bilirubin Neg (Negative) 02/23/23 10:30 Urine Urobilinogen Norm mg/dL (Negative) 02/23/23 10:30 Ur Leukocyte Esterase 2+ (Negative) H 02/23/23 10:30 Urine RBC 50-80 /hpf (0-2) H 02/23/23 10:30 Urine WBC >100 /hpf (0-5) H 02/23/23 10:30 Ur Squamous Epith Cells 0-4 /hpf (0-5) H 02/23/23 10:30 Amorphous Sediment Not Reportable 02/23/23 10:30 Urine Bacteria 4+ /hpf (NONE) H 02/23/23 10:30 Urine Mucus 2+ /hpf 02/23/23 10:30 Hep Bs Antigen Non-reactive (Nonreactive) 02/18/23 10:06 Hep Bs Antibody 34.5 (11.5-1000) 02/18/23 10:06 Hep B Core Total Ab Non-reactive (Nonreactive) 02/18/23 10:06 SARS-CoV-2 Ag (Rapid) negative (Negative) 02/24/23 05:40 Blood Type O Positive 02/18/23 10:06 Rho(D) Type Positive 02/18/23 10:06 Antibody Screen Negative 02/18/23 10:06 Crossmatch See Detail 02/18/23 10:06 Vitals Last Vital Signs Temp 97.8 F 02/24/23 07:26 Pulse 55 L 02/24/23 07:26 Resp 16 02/24/23 07:26 BP 117/59 02/24/23 07:26 Pulse Ox 95 02/24/23 07:26 O2 Del Method Room Air 02/24/23 07:26 FiO2 6 02/20/23 10:15 Discharge Plan Discharge Patient Disposition: Xfer SNF Condition: Stable Prescriptions: New ciprofloxacin HCl 500 mg Tablet 250 mg PO DAILY@1400 Qty: 5 0RF pantoprazole 40 mg tablet,delayed release (DR/EC) 40 mg PO BID 42 Days Qty: 84 0RF sucralfate 100 mg/mL Suspension 1 g PO AC&BEDTIME 28 Days Qty: 1000 0RF ondansetron 4 mg film 4 mg PO Q6H PRN (Reason: nausea and vomiting) Qty: 30 2RF carvedilol 6.25 mg Tablet 3.125 mg PO SuTuThSa@0900,2100 Qty: 90 0RF Continued pantoprazole [Protonix] 40 mg tablet,delayed release (DR/EC) 40 mg PO BID acetaminophen [Tylenol] 325 mg tablet 650 mg PO Q4H PRN (Reason: Pain) ipratropium-albuterol 0.5 mg-3 mg(2.5 mg base)/3 mL solution for nebulization 3 ml INHALATION Q4H PRN (Reason: Shortness Of Breath) lidocaine HCl [Lidocaine Viscous] 2 % solution 1 applic topical ONCE Qty: 1 0RF simethicone [Gas Relief (simethicone)] 80 mg tablet,chewable 80 mg PO DAILY PRN (Reason: abdominal distention) bisacodyl 10 mg suppository 10 mg CA DAILY PRN (Reason: constipation) Rx Instructions: if no bm in 3 days Fleet Enema 19-7 gram/118 mL enema 118 ml CA DAILY PRN (Reason: constipation) cholecalciferol (vitamin D3) [Vitamin D3] 25 mcg (1,000 unit) capsule 25 mcg PO DAILY (DME) elastic bandage 3 bandage See Rx Instructions .Route Rx Instructions: Apply to LLE as needed for swelling and continue to elevate the LE's as needed. lidocaine-prilocaine 2.5-2.5 % cream 1 applic topical .COMPLEX Rx Instructions: apply to L upper arm and wrap with saran wrap prior to dialysis on mon,wed and fri (DME) elastic bandage Bandage See Rx Instructions .Route Rx Instructions: Apply every day to LLE as needed. ondansetron HCl 8 mg tablet 8 mg PO TID PRN (Reason: nausea and vomiting) promethazine 12.5 mg suppository 12.5 mg CA Q8H PRN (Reason: nausea and vomiting) bumetanide 1 mg tablet 1 mg PO .COMPLEX Rx Instructions: 1 mg orally On non dialysis days; ON alprazolam 0.25 mg tablet 0.25 mg PO BID PRN (Reason: Anxiety) 30 Days Qty: 60 5RF Rx Instructions: (end date 02/05/23) Marybel-Eugenio Rx 1-60-300 mg-mg-mcg Tablet 1 tab PO DAILY calcium acetate(phosphat bind) 667 mg tablet 667 mg PO TID tamsulosin [Flomax] 0.4 mg capsule 0.4 mg PO BEDTIME Constulose 10 gram/15 mL Solution 30 ml PO DAILY simethicone 125 mg Capsule See Rx Instructions .ROUTE .COMPLEX Rx Instructions: 125mg po after meals and at bedtime as needed for gas promethazine 25 mg tablet 25 mg PO BID PRN (Reason: Nausea And Vomiting) polyethylene glycol 3350 17 gram/dose Powder 17 g PO DAILY PRN (Reason: Constipation) sevelamer carbonate 800 mg tablet 800 mg PO TID Xtampza ER 18 mg cap,sprinkl,ER12hr(DONT CRUSH) 18 mg PO BID Hemorrhoidal (witch maia) 50 % Pads, Medicated 1 pad TOPICAL BID PRN (Reason: Hemorrhoids) naloxone 0.4 mg/mL Solution See Rx Instructions .ROUTE .COMPLEX Rx Instructions: im in deltoid or thigh may repeat every 3-5 minutes for 3 doses and call 911 if no response loperamide 2 mg Tablet 2 mg PO Q8H PRN (Reason: Diarrhea) diphenoxylate-atropine [Lomotil] 2.5-0.025 mg tablet 1 tab PO QID PRN (Reason: Diarrhea) hydrocodone-acetaminophen 10-325 mg tablet 1 tab PO Q4H PRN (Reason: Pain) lidocaine cream 4 % topical 3XD PRN (Reason: pain) Rx Instructions: 4 % topically as needed ;1 topically as needed Changed Eliquis 5 mg tablet 2.5 mg PO DAILY Qty: 120 5RF Held citalopram [Celexa] 10 mg tablet 10 mg PO DAILY Hold Instructions: Resume on 03/03/23. Discontinued carvedilol 12.5 mg tablet See Rx Instructions .ROUTE .COMPLEX Rx Instructions: 12.5mg po twice a day on sun,tues,thurs,and sat carvedilol 12.5 mg tablet See Rx Instructions .ROUTE .COMPLEX Rx Instructions: 12.5mg po twice a day on mon,wed,and fri (send with resident to dialysis) Discharge Orders: Discharge Order (Routine); Ordered 02/24/23 Ordered By: Dedrick Rodriguez Referrals: [facility] [Outside] Soren Waters DO [Primary Care Provider] - 4-7 days Discharge Diet: As Directed Discharge Activity: As per PT/OT instructions Patient Instructions: Ciprofloxacin (By mouth) (Cipro), Sucralfate (By mouth) (Carafate), Ondansetron (By injection) (Zofran, BD Simplist Ondansetron,..., Carvedilol (By mouth) (Coreg, Coreg CR, Hypertenevide-12.5), Pantoprazole (By mouth), Gastrointestinal Bleeding (GEN), Anemia (GEN), Fall Prevention (GEN), GI Discharge Instructions, Opioid Safety Activity Restrictions/Additional Instructions: Continue renal, dialysis diet. Add Nepro shakes. Continue to reposition frequently for pressure ulcers including stage II pressure ulcer on left hip. Please reassess bruise in the left calf. Mobilize as tolerating. Maintain fall precautions. Starting significantly reduced dose Eliquis 2.5 mg daily due to recent DVT. However, also anemia, gastritis, recent GI bleed, please reassess CBC on Monday. Discharge Attestations Time Spent in Discharge Care*: greater than 30 min Quality Metrics Clinical Quality Measures [ No reported AMI, CVA or VTE this stay] Coding Level of Care Code 61815 Total time (in minutes) for Discharge: 50 Diagnoses ESRD (end stage renal disease) N18.6
[2023-02-24 12:00] VITALS: BP 139/56; PULSE 64; RESP 16; TEMP 36.8; O2SAT 94
[2023-02-24] MEDS: albumin 12.5 GM/50 ML VIAL IV (16:39)
[2023-02-24 18:26] VITALS: BP 113/43; BP 126/50; PULSE 60; PULSE 67; RESP 18; TEMP 36.7; TEMP 36.9
== END 2023-02-24 16:44 | disposition skilled nursing facility (03) | DRG 377 ==
LOC: ER 12:35 → MEDSURG 13:35
PROVIDERS: Hospitalist; Surgery; Admitting Provider Student in an Organized Health Care Education/Training Program; Emergency Provider Nurse Practitioner; PCP Family Medicine; Visit Provider Internal Medicine
PROC: 0DJ08ZZ Inspection of Upper Intestinal Tract, Via Natural or Artificial Opening Endoscopic (ICD-10-PCS; CPT 43235; principal; 2023-02-20 09:00)
PROC: 0DJD8ZZ Inspection of Lower Intestinal Tract, Via Natural or Artificial Opening Endoscopic (ICD-10-PCS; CPT 45330; 2023-02-20 09:00)
DX: K29.51 Unspecified chronic gastritis with bleeding (principal); L89.213 Pressure ulcer of right hip, stage 3; N18.6 End stage renal disease; I13.2 Hypertensive heart and chronic kidney disease with heart failure and with stage 5 chronic kidney disease, or end stage renal disease; I50.32 Chronic diastolic (congestive) heart failure; Z99.2 Dependence on renal dialysis; Z86.718 Personal history of other venous thrombosis and embolism; D63.1 Anemia in chronic kidney disease; L89.222 Pressure ulcer of left hip, stage 2; Z79.891 Long term (current) use of opiate analgesic; F41.9 Anxiety disorder, unspecified; F32.A Depression, unspecified; M79.7 Fibromyalgia; K21.9 Gastro-esophageal reflux disease without esophagitis; Z85.3 Personal history of malignant neoplasm of breast; Z96.642 Presence of left artificial hip joint; I48.0 Paroxysmal atrial fibrillation; I25.2 Old myocardial infarction; E78.5 Hyperlipidemia, unspecified; Z86.73 Personal history of transient ischemic attack (TIA), and cerebral infarction without residual deficits; Z86.711 Personal history of pulmonary embolism
CPT/HCPCS: 36415; 36430; 36592; 43239; 45330; 80048; 80053; 81001; 85014; 85018; 85025; 86705; 86706; 86850; 86900; 86920; 87077; 87086; 87186; 87340; 87426; 88305; 88342; 90935; 93005; 93970; 96360; 96361; 99285; C9113; J0885; J1170; J2405; J2704; J3490; J7030; P9016; P9047; Q3014

== ENCOUNTER 2023-03-09 22:07 | Inpatient (IN) | payer MEDICARE, OTHER, SELFPAY ==
--- NOTE | 2023-03-09 22:19 | XRR_ITS ---
PROCEDURE INFORMATION: Exam: XR Chest Exam date and time: 03/09/2023 10:41 PM Age: 87 years old Clinical indication: Other: Weakness; Prior surgery; Surgery date: 6+ months; Surgery type: Lumpectomy TECHNIQUE: Imaging protocol: Radiologic exam of the chest. Views: 1 view. COMPARISON: CR XR chest 1V portable [id number] 02/01/2023 2:36 PM FINDINGS: Lungs: No CHF/pulmonary edema. Poor inspiration somewhat limits evaluation, especially of the lung bases. Very mild bilateral lower lung opacities, suspicious for atelectasis or parenchymal scarring. Subtle pneumonitis not entirely excluded. Please correlate clinically. Visible lungs otherwise appear essentially clear. Pleural spaces: No visible pneumothorax. No definite pleural fluid. Heart/Mediastinum: Heart size is within normal limits. Bones/joints: No significant acute finding. Soft tissues: Surgical clips seen in left axillary/breast region. XR/XR chest 1V portable [id number] IMPRESSION: 1. Very mild bilateral lung opacities, see above discussion. 2. Other findings discussed above.
[2023-03-09 22:32] VITALS: BP 103/45; PULSE 62; RESP 18; TEMP 36.9; O2SAT 93; BMI 18.3
[2023-03-09 22:49] LABS: Basophils % 0.2 %; Eosinophils # 0.2 10^3/uL (0.0-0.8); Eosinophils % 3.9 %; Lymphocytes # 1.6 10^3/uL (0.8-4.8); Lymphocytes % 26.6 %; Mean Corpuscular HGB Conc 33.3 g/dL (30-55); Mean Corpuscular Hemoglobin 35.8 pg (27-33); Mean Corpuscular Volume 107.3 fl (85-98); Mean Platelet Volume 10.2 fL (7.4-10.4); Monocytes # 0.4 10^3/uL (0.2-0.9); Monocytes % 6.4 %; Neutrophils # 3.81 10^3/uL (1.8-7.7); Neutrophils % 62.7 %; Nucleated Red Blood Cells % 0 %; Platelet Count 164 10^3/cmm (157-399); Red Blood Count 1.79 10^6/uL (3.85-5.65); Red Cell Distribution Width 20.3 % (12.1-15.1); White Blood Count 6.08 10^3/uL (3.29-11.43)
[2023-03-09 22:49] LABS: ABG PCO2 43.1 mmHg (35-45); ABG PH Result 7.34 (7.35-7.45); Arterial Blood Gas Hematocrit 18.9 % (37-47); Base Excess ABG -2.6 mmol/L (-2.0-2.0); Blood Gas Allen Test Pos; Blood Gas Sample Site Radial, right; Blood Gas Sample Type Arterial; PO2 ABG 68.5 mmHg (80.0-100.0)
--- NOTE | 2023-03-09 22:52 | USR_ITS ---
PROCEDURE INFORMATION: Exam: US Duplex Left Upper Extremity Veins, Limited Exam date and time: 03/09/2023 11:02 PM Age: 87 years old Clinical indication: Other: Unable to access dialysys; Prior surgery; Surgery date: 6+ months; Surgery type: Loop graft; Additional info: Fistula. Check patency of fistula in left arm. TECHNIQUE: Imaging protocol: Real-time duplex ultrasound of the left extremity with 2-D avina scale, color Doppler flow and spectral waveform analysis including responses to compression and other maneuvers (when performed) with image documentation. Limited exam focused on the left upper extremity veins. COMPARISON: No relevant prior studies available. FINDINGS: Targeted scanning was performed of the left upper arm fistula/graft, and adjacent vessels. There is an apparent loop graft in the left upper arm which appears occluded, and contains somewhat echogenic thrombus. The brachial artery at the anastomosis of the graft still appears patent. There appears to be a minimal amount of flow into the graft just adjacent to the anastomosis, but only for a length of 5-10 mm. The remainder of the visualized graft appears occluded. Images of the left axillary and left subclavian vein also show that those veins are patent. US/[place] [id number] IMPRESSION: Occlusion/thrombus involving the graft/fistula in the left upper arm, details above.
--- NOTE | 2023-03-09 22:59 | ECG_ITS ---
[facility] Test Date: 2023-03-09 Pat Name: Milla Thomas Department: Room: Gender: Female Cigarette Packer: : [id number] Requested By: Marty Kramer Order Number: [id number] Tisha MD: Jessica Blackmon M.D. Measurements Intervals [place] Rate: 58 P: 87 MT: 216 QRS: 5 QRSD: 110 T: 29 QT: 459 QTc: 452 Interpretive Statements SINUS BRADYCARDIA WITH FIRST DEGREE AV BLOCK Compared to ECG 02/18/2023 10:03:35 Sinus rhythm no longer present T-wave abnormality no longer present Electronically Signed On 03-10-2023 9:17:56 CDT by Jessica Blackmon M.D. [id number]
--- NOTE | 2023-03-09 23:00 | ED_ITS ---
HPI - Weakness General: Chief complaint: Weakness Stated complaint: AMS Time Seen by Provider: 03/09/23 22:14 Source: patient Mode of arrival: ambulatory Limitations: no limitations History of Present Illness: 87-year-old female has a history of multiple medical issues including chronic kidney disease she is on dialysis she had recently been admitted here for GI bleed with anemia she is from the senior living family states that she did not receive her dialysis Monday they could not get her fistula in her left arm to work correctly states today she has been much weaker than normal and lethargic having some borderline low blood pressures she states she had some bright red blood in her stools well she has a history of hemorrhoids denies any chest pain denies any fever denies any dysuria Associated symptoms: Denies chest pain, chills, fever(s), headache(s), nausea or vomiting Review of Systems Const: Reports: fatigue and malaise; Denies: fever(s) or chills Eyes: Denies: blurry vision or eye discomfort ENMT: Denies: throat pain or dental pain Card: Denies: chest pain Resp: Denies: dyspnea GI: Denies: abdominal pain, nausea, vomiting or diarrhea Musc: Denies: neck pain or back pain Skin/Breast: Denies: rash Neuro: Denies: headache(s) PFSH ED PFSH: Medical History Acetabulum fracture, left Anemia of chronic disease Anxiety and depression Chronic diarrhea DDD (degenerative disc disease) Decubitus ulcer of buttock Decubitus ulcer, buttock, right, unstageable Diastolic CHF ESRD (end stage renal disease) ESRD (end stage renal disease) on dialysis Fall Fibromyalgia GERD (gastroesophageal reflux disease) History of breast cancer Previously followed by Dr. Santoyo History of pulmonary embolus (PE) 08/2016 History of stroke 11/14/16 Hyperlipidemia Hypertension Hypoxemic respiratory failure, chronic Incomplete bladder emptying Internal and external bleeding hemorrhoids Lives in assisted living facility Low BP Lumbar spinal stenosis Non-STEMI (non-ST elevated myocardial infarction) Osteoarthritis Paroxysmal A-fib Peritoneal dialysis catheter in place Recurrent UTI Restrictive lung disease Urinary retention Urinary tract infection UTI (urinary tract infection) Surgical History History of back surgery History of esophagogastroduodenoscopy (EGD) 08/03/17 mild gastritis and duodenitis History of hemiarthroplasty of left hip 11/18/18: Dr. Mendoza History of hysterectomy History of lumpectomy of left breast History of right cataract surgery Family History Other Cancer Denies family history of Anesthesia complication Bleeding disorder Social History Second hand smoke exposure: No Alcohol intake: never Substance/Drug Use: never Adopted: No Caregiver/support person: Yes Lives independently: Yes Housing: Assisted Living Facility Marital status: Marital status details: with dementia Additional social history: FULL CODE DISCUSSED WITH PATIENT ON 02/04/20 Course Vital Signs: Vital signs: Vital Signs Temperature 98.4 F 03/09/23 22:32 Pulse Rate 62 03/09/23 22:32 Respiratory Rate 18 03/09/23 22:32 Blood Pressure 103/45 03/09/23 22:32 Pulse Oximetry 93 03/09/23 22:32 MDM - Weakness Medical Decision Making Patient presents here with weakness likely from her blood pressure here has improved rectal exam showed brown stool but was Hemoccult positive no signs of large amounts of bleeding will transfuse her spoke to hospitalist will admit the ICU her potassium here is normal did get ultrasound of her graft is occluded at this time. Medical Records I reviewed the patient's medical records. Lab Data I reviewed the patient's lab results. 03/09/23 21:53 03/09/23 21:53 Radiology Impressions Chest X-Ray 03/09/23 22:19 IMPRESSION: 1. Very mild bilateral lung opacities, see above discussion. 2. Other findings discussed above. Venous Duplex 03/09/23 22:52 IMPRESSION: Occlusion/thrombus involving the graft/fistula in the left upper arm, details above. Laboratory Results WBC 6.08 10^3/uL (3.29-11.43) 03/09/23 21:53 RBC 1.79 10^6/uL (3.85-5.65) L 03/09/23 21:53 Hgb 6.40 g/dL (11.27-16.99) L* 03/09/23 21:53 Hct 19.2 % (36-47) L* 03/09/23 21:53 MCV 107.3 fl (85-98) H 03/09/23 21:53 MCH 35.8 pg (27-33) H 03/09/23 21:53 MCHC 33.3 g/dL (30-55) 03/09/23 21:53 RDW 20.3 % (12.1-15.1) H 03/09/23 21:53 Plt Count 164 10^3/cmm (157-399) 03/09/23 21:53 MPV 10.2 fL (7.4-10.4) 03/09/23 21:53 Neut % (Auto) 62.7 % 03/09/23 21:53 Lymph % (Auto) 26.6 % 03/09/23 21:53 [place] % (Auto) 6.4 % 03/09/23 21:53 Eos % (Auto) 3.9 % 03/09/23 21:53 Baso % (Auto) 0.2 % 03/09/23 21:53 Neut # (Auto) 3.81 10^3/uL (1.8-7.7) 03/09/23 21:53 Lymph # (Auto) 1.6 10^3/uL (0.8-4.8) 03/09/23 21:53 [place] # (Auto) 0.4 10^3/uL (0.2-0.9) 03/09/23 21:53 Eos # (Auto) 0.2 10^3/uL (0.0-0.8) 03/09/23 21:53 Baso # (Auto) 0.0 10^3/uL (0.0-0.1) 03/09/23 21:53 Nucleated RBC % (auto) 0 % 03/09/23 21:53 Nucleated RBCs # 0.0 /100WBC 03/09/23 21:53 PT 19.40 SECONDS (12.1-14.9) H 03/09/23 21:53 INR 1.58 (0.8-1.2) H 03/09/23 21:53 Specimen Type Arterial 03/09/23 22:40 Sample Site Radial, right 03/09/23 22:40 ABG pH 7.34 (7.35-7.45) L 03/09/23 22:40 ABG pCO2 43.1 mmHg (35-45) 03/09/23 22:40 ABG pO2 68.5 mmHg (80.0-100.0) L 03/09/23 22:40 ABG HCO3 23.0 mmol/L (22-26) 03/09/23 22:40 ABG Base Excess -2.6 mmol/L (-2.0-2.0) L 03/09/23 22:40 Eddi Test Pos 03/09/23 22:40 Hematocrit 18.9 % (37-47) L 03/09/23 22:40 O2 Delivery Device None 03/09/23 22:40 FiO2 21.0 % 03/09/23 22:40 Pharmacy Informatics Specialist ID Alewe 03/09/23 22:40 Sodium 138 mmol/L (136-145) 03/09/23 21:53 Potassium 3.8 mmol/L (3.5-5.1) 03/09/23 21:53 Chloride 103 mmol/L (98-107) 03/09/23 21:53 Carbon Dioxide 23 mmol/L (22-29) 03/09/23 21:53 Anion Gap 15.8 (5-19) 03/09/23 21:53 BUN 77 mg/dL (8-23) H 03/09/23 21:53 Creatinine 5.5 mg/dL (0.5-0.9) H 03/09/23 21:53 GFR Calculation Not Reportable 03/09/23 21:53 Glucose 90 mg/dL (65-115) 03/09/23 21:53 Calculated Osmolality 309 mOsm/kg (285-295) H 03/09/23 21:53 Lactic Acid 0.8 mmol/L (0.5-2.2) 03/09/23 22:37 Calcium 8.2 mg/dL (8.5-10.5) L 03/09/23 21:53 Magnesium 1.6 mg/dL (1.7-2.3) L 03/09/23 21:53 Total Bilirubin 0.3 mg/dL (0.15-1.2) 03/09/23 21:53 AST 10 U/L (0-32) 03/09/23 21:53 ALT 8 U/L (0-33) 03/09/23 21:53 Alkaline Phosphatase 92 U/L (35-105) 03/09/23 21:53 Troponin T Baseline 158 ng/L (0-10) H* 03/09/23 21:53 Total Protein 4.0 g/dL (6.6-8.7) L 03/09/23 21:53 Albumin 2.1 g/dL (3.5-5.2) L 03/09/23 21:53 Globulin 1.9 g/dL (1.3-4.6) 03/09/23 21:53 Blood Type O Positive 03/09/23 22:37 Rho(D) Type Positive 03/09/23 22:37 Antibody Screen Negative 03/09/23 22:37 Crossmatch See Detail 03/09/23 22:37 Critical Care Time Critical Care Time: Critical Care Time: Yes Total Critical Care Time: 45 Attestation: The high probability of a clinically significant, sudden or life threatening deterioration of the patient's heme system(s) required my full and direct attention, intervention and personal management. The critical care time is as shown. This time is in addition to time spent performing any reported procedures but includes the following: [x] Data and vital sign review and interpretation [x] Patient assessment, examination and intervention [x] Documentation [x] Medication orders and management Discharge Plan Discharge Patient Disposition: Admitted As Inpatient Clinical Impression: Chronic kidney disease (CKD), Anemia Condition: Stable Coding Level of Care Code ED Seed Trucker for Alyson Abdullahi
[2023-03-09 23:04] LABS: INR 1.58 (0.8-1.2)
[2023-03-09 23:12] LABS: Alanine Aminotransferase 8 U/L (0-33); Albumin Level 2.1 g/dL (3.5-5.2); Alkaline Phosphatase 92 U/L (35-105); Anion Gap 15.8 (5-19); Aspartate Amino Transferase 10 U/L (0-32); Blood Urea Nitrogen 77 mg/dL (8-23); Calcium 8.2 mg/dL (8.5-10.5); Carbon Dioxide 23 mmol/L (22-29); Chloride 103 mmol/L (98-107); Globulin 1.9 g/dL (1.3-4.6); Glucose 90 mg/dL (65-115); Magnesium 1.6 mg/dL (1.7-2.3); Osmolality Calculated 309 mOsm/kg (285-295); Potassium 3.8 mmol/L (3.5-5.1); Sodium 138 mmol/L (136-145); Total Bilirubin 0.3 mg/dL (0.15-1.2)
[2023-03-09 23:13] LABS: Lactic Sepsis W/Reflex 0.8 mmol/L (0.5-2.2)
[2023-03-09 23:13] LABS: Hematocrit 19.2 % (36-47)
[2023-03-09 23:15] VITALS: BP 111/56; PULSE 64; O2SAT 94
[2023-03-09 23:16] LABS: Troponin(5th) Baseline 158 ng/L (0-10)
[2023-03-09 23:30] VITALS: BP 84/41; PULSE 58; O2SAT 94
[2023-03-09 23:33] VITALS: BP 89/46; PULSE 63; O2SAT 95
[2023-03-09 23:35] VITALS: BP 117/53; PULSE 66; O2SAT 97
[2023-03-09 23:45] VITALS: BP 105/49; PULSE 61; O2SAT 96
[2023-03-10] VITALS (121 sets, daily range): BP systolic 81–168; BP diastolic 37–114; PULSE 58–85; RESP 8–28; TEMP 35.7–36.6; O2SAT 86–97
--- NOTE | 2023-03-10 00:19 | ECG_ITS ---
[facility] Test Date: 2023-03-10 Pat Name: Milla Thomas Department: Room: [facility] Gender: Female Ep Technologist: : 1935 Requested By: Marty Kramer Order Number: [id number] Tisha MD: Jessica Blackmon M.D. Measurements Intervals [place] Rate: 64 P: 55 SC: 246 QRS: 23 QRSD: 97 T: 29 QT: 432 QTc: 449 Interpretive Statements SINUS RHYTHM WITH FIRST DEGREE AV BLOCK Compared to ECG 03/09/2023 22:59:47 Sinus bradycardia no longer present Electronically Signed On 03-10-2023 13:04:22 CDT by Jessica Blackmon M.D. [id number]
--- NOTE | 2023-03-10 01:04 | PM.HP ---
Providers/Chief Complaint Admitting Physician: Antonio Virgen DO Primary Care Provider: Rajinder Rico MD Chief Complaint: AMS History of Present Illness Milla Thomas is a 87 year old female with end-stage renal disease, recurrent anemia most likely multifactorial secondary to end-stage renal disease as well as slow GI bleed, frequent falls, recent UTI, increasing confusion and failure to thrive. This is her third hospitalization since her acetabular fracture back on 01/18/2023. She was discharged on 01/22/2023 to assisted facility at [facility]. Her first admission on February 01 was due to a UTI and hypotension. Her second admission 02/19 to 02/24 was for anemia. And her current admission is for recurrent anemia. Now her Left AV graft is occluded. She does not require urgent dialysis as her potassium is in the normal range. Patient's hemoglobin today is 6.4 with an MCV of 107 and MCH of 35.8. Recent studies show that she is not iron deficient and her vitamin B 12 and folic acid were within normal limits. Blood transfusion was not initiated in the ER and she was sent to the ICU due to low normal blood pressure. Patient was able to talk to me for short period of time. She was complaining of her right hip hurting and right leg. Otherwise she just said yes that she was having weakness. Shortly after that she closed her eyes and did not really answer my questions. Review of Systems Const: Denies: fever(s) or chills Eyes: Denies: change in vision ENMT: Denies: throat pain or nasal congestion Card: Denies: chest pain or palpitations Resp: Denies: dyspnea or productive cough GI: Denies: abdominal pain, nausea, vomiting or change in stool character : Denies: dysuria Musc: Reports: muscle weakness (throughout) Skin/Breast: Denies: rash or lesions Neuro: Reports: weakness in extremities; Denies: headache(s) or dizziness Psych: Denies: anxiety or depression Tino/Lymph: Denies: easy bruising or easy bleeding Medications/Allergies Home Medications Medication Instructions Recorded Confirmed Last Taken Type acetaminophen 325 mg tablet 650 mg PO Q4H PRN Pain 11/13/19 03/01/23 03/29/21 History (Tylenol) citalopram 10 mg tablet (Celexa) 10 mg PO DAILY 11/13/19 03/01/2323 History ipratropium 0.5 mg-albuterol 3 mg 3 ml inhalation Q4H PRN Shortness 11/13/19 03/01/23 Unknown History (2.5 mg base)/3 mL nebulization Of Breath soln pantoprazole 40 mg tablet,delayed 40 mg PO BID 11/13/19 03/01/23 02/18/23 History release (Protonix) vitamin B comp no.3-folic acid 1 1 tab PO DAILY 02/25/20 03/01/23 02/18/23 History mg-vit C 60 mg-biotin 300 mcg tablet (Mary[facility] Rx) tamsulosin 0.4 mg capsule (Flomax) 0.4 mg PO BEDTIME 09/08/20 03/01/23 02/17/23 History calcium acetate(phosphat bind) 667 667 mg PO TID 03/29/21 03/01/23 02/18/23 History mg tablet bisacodyl 10 mg rectal suppository 10 mg SD DAILY PRN constipation 10/10/21 03/01/23 Unknown History cholecalciferol (vitamin D3) 25 25 mcg PO DAILY 10/10/21 03/01/23 02/18/23 History mcg (1,000 unit) capsule (Vitamin D3) elastic bandage 10/10/21 03/01/23 Unknown History elastic bandage 3 10/10/21 03/01/23 Unknown History lidocaine-prilocaine 2.5 %-2.5 % 1 applic topical .COMPLEX 10/10/21 03/01/23 Unknown History topical cream ondansetron HCl 8 mg tablet 8 mg PO TID PRN nausea and vomiting 10/10/21 03/01/23 02/01/23 History promethazine 12.5 mg rectal 12.5 mg SD Q8H PRN nausea and 10/10/21 03/01/23 Unknown History suppository vomiting simethicone 80 mg chewable tablet 80 mg PO DAILY PRN abdominal 10/10/21 03/01/23 Unknown History (Gas Relief (simethicone)) distention sodium phosphates 19 gram-7 118 ml SD DAILY PRN constipation 10/10/21 03/01/23 Unknown History gram/118 mL enema (Fleet Enema) alprazolam 0.25 mg tablet 0.25 mg PO BID PRN Anxiety 30 days 07/07/22 03/01/23 02/17/23 Rx #60 tabs bumetanide 1 mg tablet 1 mg PO .COMPLEX 01/18/23 03/01/23 02/18/23 History oxycodone myristate 18 mg capsule 18 mg PO BID 01/19/23 03/01/23 02/18/23 History sprinkle extended release 12hr(DON'T CRUSH) (Xtampza ER) polyethylene glycol 3350 17 17 g PO DAILY PRN Constipation 01/19/23 03/01/23 Unknown History gram/dose oral powder promethazine 25 mg tablet 25 mg PO BID PRN Nausea And 01/19/23 03/01/23 Unknown History Vomiting sevelamer carbonate 800 mg tablet 800 mg PO TID 01/19/23 03/01/23 02/18/23 History simethicone 125 mg capsule See Rx Instructions .Route .COMPLEX 01/19/23 03/01/23 Unknown History diphenoxylate-atropine 2.5 1 tab PO QID PRN Diarrhea 02/01/23 03/01/23 02/18/23 History mg-0.025 mg tablet (Lomotil) hydrocodone 10 mg-acetaminophen 1 tab PO Q4H PRN Pain 02/01/23 03/01/23 02/18/23 History 325 mg tablet loperamide 2 mg tablet 2 mg PO Q8H PRN Diarrhea 02/01/23 03/01/23 Unknown History naloxone 0.4 mg/mL injection See Rx Instructions .Route .COMPLEX 02/01/23 03/01/23 Unknown History solution witch maia 50 % topical pads 1 pad topical BID PRN Hemorrhoids 02/01/23 03/01/23 Unknown History (Hemorrhoidal (witch maia)) lidocaine 4 % topical 3XD PRN pain 02/05/23 03/01/23 02/17/23 History lactulose 10 gram/15 mL oral 30 ml PO DAILY 02/18/23 03/01/23 02/15/23 History solution (Constulose) apixaban 5 mg tablet (Eliquis) 2.5 mg PO DAILY #120 tabs 02/24/23 03/01/23 02/18/23 Rx carvedilol 6.25 mg tablet 3.125 mg PO SuTuThSa@0900,2100 #90 02/24/23 03/01/23 Unknown Rx tabs ciprofloxacin HCl 500 mg tablet 250 mg PO DAILY@1400 #5 tabs 02/24/23 03/01/23 Unknown Rx ondansetron 4 mg oral soluble film 4 mg PO Q6H PRN nausea and 02/24/23 03/01/23 Unknown Rx vomiting #30 ea pantoprazole 40 mg tablet,delayed 40 mg PO BID 6 weeks #84 tabs 02/24/23 03/01/23 Unknown Rx release sucralfate 100 mg/mL oral 1 g (10 mL) PO AC&BEDTIME 4 weeks 02/24/23 03/01/23 Unknown Rx suspension #1,000 mL Allergies Allergy/AdvReac Type Severity Reaction Status Date / Time amitriptyline [From Elavil] Allergy Unknown Unknown Verified 03/01/23 12:22 cyclobenzaprine Allergy Unknown Unknown Verified 03/01/23 12:22 [From Flexeril] Penicillins Allergy Unknown Unknown Verified 03/01/23 12:22 pentazocine [From Talwin] Allergy Unknown Unknown Verified 03/01/23 12:22 pregabalin [From Lyrica] Allergy Unknown Unknown Verified 03/01/23 12:22 tizanidine Allergy Unknown Unknown Verified 03/01/23 12:22 doxycycline Allergy Unknown Verified 03/01/23 12:22 morphine Allergy Unknown Verified 03/01/23 12:22 naloxone Allergy Unknown Verified 03/01/23 12:22 Sulfa (Sulfonamide Allergy Unknown Verified 03/01/23 12:22 Antibiotics) sulfamethoxazole AdvReac kidney Verified 03/01/23 12:22 [From Bactrim] trimethoprim [From Bactrim] AdvReac kidney Verified 03/01/23 12:22 PFSH Acute PFSH: Medical History Acetabulum fracture, left Anemia of chronic disease Anxiety and depression Chronic diarrhea DDD (degenerative disc disease) Decubitus ulcer of buttock Decubitus ulcer, buttock, right, unstageable Diastolic CHF ESRD (end stage renal disease) ESRD (end stage renal disease) on dialysis Fall Fibromyalgia GERD (gastroesophageal reflux disease) History of breast cancer Previously followed by Dr. Santoyo History of pulmonary embolus (PE) 08/2016 History of stroke 11/14/16 Hyperlipidemia Hypertension Hypoxemic respiratory failure, chronic Incomplete bladder emptying Internal and external bleeding hemorrhoids Lives in assisted living facility Low BP Lumbar spinal stenosis Non-STEMI (non-ST elevated myocardial infarction) Osteoarthritis Paroxysmal A-fib Peritoneal dialysis catheter in place Recurrent UTI Restrictive lung disease Urinary retention Urinary tract infection UTI (urinary tract infection) Surgical History History of back surgery History of esophagogastroduodenoscopy (EGD) 08/03/17 mild gastritis and duodenitis History of hemiarthroplasty of left hip 11/18/18: Dr. Mendoza History of hysterectomy History of lumpectomy of left breast History of right cataract surgery Family History Other Cancer Denies family history of Anesthesia complication Bleeding disorder Social History Second hand smoke exposure: No Alcohol intake: never Substance/Drug Use: never Adopted: No Caregiver/support person: Yes Lives independently: Yes Housing: Assisted Living Facility Marital status: Marital status details: with dementia Additional social history: FULL CODE DISCUSSED WITH PATIENT ON 02/04/20 Vitals/I&O/Wt Last Vital Signs Temp 97.4 F L 03/10/23 00:53 Pulse 61 03/10/23 00:53 Resp 16 03/10/23 00:53 BP 95/50 03/10/23 00:53 Pulse Ox 95 03/10/23 00:53 03/09/23 03/09/23 03/10/23 14:59 22:59 06:59 Intake Total 0 / 0 Balance 0 / 0 Weight last 48 hrs Weight 49.895 kg Physical Exam Narrative: Elderly frail weak and barely awake female with 2 daughters at the bedside. Neurologic: Patient is nonfocal on exam. She is sleepy but will arouse to voice. HEENT head is normocephalic atraumatic. Pupils equal round and reactive to light and accommodation extraocular muscles are intact there is no scleral icterus mucous membranes are moist and pink there is no lesions or exudates. Neck is supple no JVD carotid bruits or lymphadenopathy Chest: Rises symmetrically with inspiration Cardio: Distant heart sounds no loud murmur Respiratory: Clear to auscultation anteriorly and laterally. Abdomen: Flat soft nontender nondistended positive bowel sounds Extremities: 4 present no significant edema noted, multiple ecchymosis involving all 4 extremities. There is bandages over the bilateral mid shins. The left graft without bruit. Skin: Ecchymoses as described above Psych: Mood and affect appropriate for illness. Data 03/09/23 21:53 03/09/23 21:53 Other Imaging: My impression: venous duplex of left AV graft A&P Assessment and plan (1) Anemia: Blood transfusion. Follow H&H 1 hour after blood transfusion given (2) Decubitus ulcer of left lower back, stage 2: Present on admission. Continue with wound management. (3) DVT (deep venous thrombosis): Recent nonocclusive DVT of left peroneal and posterior tibial veins. She was started on Eliquis at that time. Follow-up venous ultrasound shows no DVT on 02/19/2023. No further anticoagulation in a patient with a calf thrombosis. Patient is too high risk with recent falls and recurrent anemia. (4) ESRD (end stage renal disease): Patient's left AV graft is occluded and would need surgical intervention if family feels that patient would continue to want dialysis. (5) Acute GI bleeding: Patient was found to have moderate erosive gastritis on EGD approximately . She has been on a PPI twice daily since that time. She continues to have stool positive for Hemoccult. (6) Hypertension: Hold Bumex, carvedilol. Qualifiers: Hypertension type: renovascular hypertension Qualified Code(s): I15.0 - Renovascular hypertension (7) Anxiety and depression: Plan I spoke with 2 daughters at the bedside regarding my concern for the patient's medical condition. It is unfortunate but the patient has quickly deteriorated since her left pelvic fracture on January 18, 2023. With 3 admissions since then I am concerned about failure to thrive. Her current anemic condition is also of concern since she continues to lose blood despite aggressive PPI twice daily therapy. She is likely not to be a candidate for any surgical intervention due to age and her end-stage renal disease. Also of note patient is on chronic opioids. She was taking these medicines prior to the pelvic fracture. With her weakened state and continuing on the same dose of opioids this could be contributing to her weakness and lethargy. Consider decreasing dose. Otherwise I did recommend to the daughters that perhaps it was time to stop dialysis and other aggressive measures for mom. Although recently patient has reported she would wish to be full code, the shelter physician and myself are recommending allowing nature to take its course. The daughter with DPOA says you have given us a lot to think about . Attestations Medical Necessity Statement*: Anticipate 2 midnight stay for the treatment of anemia and consideration for future aggressive measures versus allowing nature to take its course. Coding Level of Care Code Acute Code for Chg Fwd Diagnoses Anemia D64.9 Decubitus ulcer of left lower back, stage 2 L89.142 DVT (deep venous thrombosis) I82.409 ESRD (end stage renal disease) N18.6 Acute GI bleeding K92.2 Hypertension I15.0 Hypertension type: renovascular hypertension Anxiety and depression F41.9; F32.9
[2023-03-10] MEDS: HYDROcodone-acetaminophen 10-325 mg Tablet 1 TAB PO ×4 (01:59→21:22)
[2023-03-10] MEDS: magnesium sulfate premix 4 GM/100 ML PREMIX IV (02:19)
[2023-03-10] MEDS: pantoprazole 40 mg SDV IVP ×2 (02:19→14:09)
[2023-03-10] MEDS: dextrose 5%-sod chloride 0.9% 1,000 ML 40 ML IV (02:19)
--- NOTE | 2023-03-10 05:45 | ECG_ITS ---
[facility] Test Date: 2023-03-10 Pat Name: Milla Thomas Department: Room: [id number] Gender: Female Customer Support Coordinator: : 1935 Requested By: Marty Kramer Order Number: [id number] Tisha MD: Jessica Blackmon M.D. Measurements Intervals [place] Rate: 71 P: 74 OK: 265 QRS: 21 QRSD: 101 T: 35 QT: 438 QTc: 477 Interpretive Statements SINUS RHYTHM WITH FIRST DEGREE AV BLOCK Compared to ECG 03/10/2023 01:35:32 No significant changes Electronically Signed On 03-10-2023 13:04:13 CDT by Jessica Blackmon M.D. [email or web address]
[2023-03-10] MEDS: citalopram 20 mg Tablet 10 MG PO (08:59)
[2023-03-10] MEDS: sevelamer 800 mg Tablet PO ×2 (08:59→14:08)
[2023-03-10] MEDS: docusate sodium 10 mg/mL (5ml) Liq 100 MG PO (08:59)
[2023-03-10] MEDS: carvedilol 6.25 mg Tablet 3.125 MG PO ×2 (08:59→17:24)
[2023-03-10 09:39] LABS: Hematocrit 35.6 % (36-47)
--- NOTE | 2023-03-10 09:56 | P.PCN_ITS ---
Procedure Note: Procedure: Preoperative diagnosis: Acute renal failure requiring emergent dialysis Postoperative diagnosis: Same Procedure: Placement of Mahurkar catheter in the right femoral vein Surgeon: Dr. Hugh Gentile, DO Anesthesia: Local Description of procedure: The patient's right groin was prepped and draped in a sterile manner. 5 mL of 1% lidocaine was infiltrated at the site of planned entry, an introducer needle was used to access the right femoral vein. Guidewire was passed through the introducer needle and the introducer needle was removed. Serial dilators were passed over the guidewire after the skin incision was extended using 11 blade and Mahurkar catheter was then passed over the warren dewire and the guidewire was removed. The catheter was sutured to the skin using 2-0 Ethilon suture. Sterile dressings were applied. Coding Level of Care Code Acute Code for Chg Fwd
--- NOTE | 2023-03-10 10:17 | PM.DIACAT ---
Procedure Note: Procedure: Preoperative diagnosis: Acute renal failure requiring emergent dialysis Postoperative diagnosis: Same Procedure: Placement of Mahurkar catheter in the right femoral vein Surgeon: Dr. Hugh Gentile, DO Anesthesia: Local Description of procedure: The patient's right groin was prepped and draped in a sterile manner. 5 mL of 1% lidocaine was infiltrated at the site of planned entry, an introducer needle was used to access the right femoral vein. Guidewire was passed through the introducer needle and the introducer needle was removed. Serial dilators were passed over the guidewire after the skin incision was extended using 11 blade and Mahurkar catheter was then passed over the guidewire and the guidewire was removed. The catheter was sutured to the skin using 2-0 Ethilon suture. Sterile dressings were applied. Coding Level of Care Code Acute Code for Chg Fwd
--- NOTE | 2023-03-10 10:18 | PM.CONSULT ---
Providers/Reason For Consult Consulting Physician/Specialty*: Dr. Hugh Gentile, DO/General surgery Reason for Consult*: Hemodialysis catheter placement Attending Physician: Dedrick Rodriguez Primary Care Provider: Rajinder Rico MD History of Present Illness History of Present Illness Milla Thomas is a 87 year old female who presented to the hospital with increasing confusion and failure to thrive. She also had anemia. She recently had an EGD and colonoscopy and no cause for her anemia was identified. She has not AV fistula for dialysis that is clotted. Nephrology requested hemodialysis catheter placement. Patient denies any pain or other symptoms Review of Systems General: Reports: 10 or more systems reviewed and unremarkable except in HPI and below Medications/Allergies Home Medications Medication Instructions Recorded Confirmed Last Taken Type acetaminophen 325 mg tablet 650 mg PO Q4H PRN Pain 11/13/19 03/10/23 03/29/21 History (Tylenol) citalopram 10 mg tablet (Celexa) 10 mg PO DAILY 11/13/19 03/10/23 02/18/23 History ipratropium 0.5 mg-albuterol 3 mg 3 ml inhalation Q4H PRN Shortness 11/13/19 03/10/23 Unknown History (2.5 mg base)/3 mL nebulization Of Breath soln vitamin B comp no.3-folic acid 1 1 tab PO DAILY 02/25/20 03/10/23 02/18/23 History mg-vit C 60 mg-biotin 300 mcg tablet ([facility]) tamsulosin 0.4 mg capsule (Flomax) 0.4 mg PO BEDTIME 09/08/20 03/10/23 02/17/23 History calcium acetate(phosphat bind) 667 667 mg PO TID 03/29/21 03/10/23 02/18/23 History mg tablet bisacodyl 10 mg rectal suppository 10 mg DC DAILY PRN constipation 10/10/21 03/10/23 Unknown History cholecalciferol (vitamin D3) 25 25 mcg PO DAILY 10/10/21 03/10/23 02/18/23 History mcg (1,000 unit) capsule (Vitamin D3) elastic bandage 10/10/21 03/10/23 Unknown History elastic bandage 3 10/10/21 03/10/23 Unknown History lidocaine-prilocaine 2.5 %-2.5 % 1 applic topical .COMPLEX 10/10/21 03/10/23 Unknown History topical cream ondansetron HCl 8 mg tablet 8 mg PO TID PRN nausea and vomiting 10/10/21 03/10/23 02/01/23 History promethazine 12.5 mg rectal 12.5 mg DC Q8H PRN nausea and 10/10/21 03/10/23 Unknown History suppository vomiting simethicone 80 mg chewable tablet 80 mg PO DAILY PRN abdominal 10/10/21 03/10/23 Unknown History (Gas Relief (simethicone)) distention sodium phosphates 19 gram-7 118 ml DC DAILY PRN constipation 10/10/21 03/10/23 Unknown History gram/118 mL enema (Fleet Enema) alprazolam 0.25 mg tablet 0.25 mg PO BID PRN Anxiety 30 days 07/07/22 03/10/23 02/17/23 Rx #60 tabs bumetanide 1 mg tablet 1 mg PO .COMPLEX 01/18/23 03/10/23 02/18/23 History oxycodone myristate 18 mg capsule 18 mg PO BID 01/19/23 03/10/23 02/18/23 History sprinkle extended release 12hr(DON'T CRUSH) (Xtampza ER) polyethylene glycol 3350 17 17 g PO DAILY PRN Constipation 01/19/23 03/10/23 Unknown History gram/dose oral powder promethazine 25 mg tablet 25 mg PO BID PRN Nausea And 01/19/23 03/10/23 Unknown History Vomiting sevelamer carbonate 800 mg tablet 800 mg PO TID 01/19/23 03/10/23 02/18/23 History simethicone 125 mg capsule See Rx Instructions .Route .COMPLEX 01/19/23 03/10/23 Unknown History diphenoxylate-atropine 2.5 1 tab PO QID PRN Diarrhea 02/01/23 03/10/23 02/18/23 History mg-0.025 mg tablet (Lomotil) hydrocodone 10 mg-acetaminophen 1 tab PO Q4H PRN Pain 02/01/23 03/10/23 02/18/23 History 325 mg tablet loperamide 2 mg tablet 2 mg PO Q8H PRN Diarrhea 02/01/23 03/10/23 Unknown History naloxone 0.4 mg/mL injection See Rx Instructions .Route .COMPLEX 02/01/23 03/10/23 Unknown History solution witch maia 50 % topical pads 1 pad topical BID PRN Hemorrhoids 02/01/23 03/10/23 Unknown History (Hemorrhoidal (witch maia)) lactulose 10 gram/15 mL oral 30 ml PO BID 02/18/23 03/10/23 02/15/23 History solution (Constulose) apixaban 5 mg tablet (Eliquis) 2.5 mg PO DAILY #120 tabs 02/24/23 03/10/23 02/18/23 Rx carvedilol 6.25 mg tablet 3.125 mg PO SuTuThSa@0900,2100 #90 02/24/23 03/10/23 Unknown Rx tabs pantoprazole 40 mg tablet,delayed 40 mg PO BID 6 weeks #84 tabs 02/24/23 03/10/23 Unknown Rx release sucralfate 100 mg/mL oral 1 g (10 mL) PO AC&BEDTIME 4 weeks 02/24/23 03/10/23 Unknown Rx suspension #1,000 mL alprazolam 0.5 mg tablet 0.5 mg PO DAILY@1800 03/10/23 03/10/23 Unknown History Allergies Allergy/AdvReac Type Severity Reaction Status Date / Time amitriptyline [From Elavil] Allergy Unknown Unknown Verified 03/01/23 12:22 cyclobenzaprine Allergy Unknown Unknown Verified 03/01/23 12:22 [From Flexeril] Penicillins Allergy Unknown Unknown Verified 03/01/23 12:22 pentazocine [From Talwin] Allergy Unknown Unknown Verified 03/01/23 12:22 pregabalin [From Lyrica] Allergy Unknown Unknown Verified 03/01/23 12:22 tizanidine Allergy Unknown Unknown Verified 03/01/23 12:22 doxycycline Allergy Unknown Verified 03/01/23 12:22 morphine Allergy Unknown Verified 03/01/23 12:22 naloxone Allergy Unknown Verified 03/01/23 12:22 Sulfa (Sulfonamide Allergy Unknown Verified 03/01/23 12:22 Antibiotics) sulfamethoxazole AdvReac kidney Verified 03/01/23 12:22 [From Bactrim] trimethoprim [From Bactrim] AdvReac kidney Verified 03/01/23 12:22 Current Medications Generic Name Dose Route Start Last Admin Trade Name Freq PRN Reason Stop Dose Admin Hydrocodone Bitart/Acetaminophen 1 tab 03/10/23 01:18 03/11/23 08:46 Hydrocodone-Acetaminophen 10-325 Mg Tablet PO 1 tab Q4H PRN Administration Pain Carvedilol 3.125 mg 03/10/23 09:00 03/11/23 08:45 Carvedilol 6.25 Mg Tablet PO 3.125 mg BID CONNOR Administration Ciprofloxacin HCl 250 mg 03/10/23 14:00 03/10/23 14:08 Ciprofloxacin 500 Mg Tablet PO 250 mg DAILY@1400 CONNOR Administration Protocol Citalopram Hydrobromide 10 mg 03/10/23 09:00 03/11/23 08:45 Citalopram 20 Mg Tablet PO 10 mg DAILY CONNOR Administration Docusate Sodium 100 mg 03/10/23 09:00 03/10/23 08:59 Docusate Sodium 10 Mg/Ml (5ml) Liq PO 100 mg BID CONNOR Administration Non-Formulary Medication 18 mg 03/10/23 09:00 03/11/23 09:42 Oxycodone Myristate [Xtampza Er] PO Not Given BID CONNOR Pantoprazole Sodium 40 mg 03/10/23 01:21 03/11/23 02:42 Pantoprazole 40 Mg Sdv IVP 40 mg Q12H CONNOR Administration Sevelamer Carbonate 800 mg 03/11/23 08:00 03/11/23 08:44 Sevelamer 800 Mg Tablet PO 800 mg TIDWM CONNOR Administration PFSH Acute PFSH: Medical History Acetabulum fracture, left Anemia of chronic disease Anxiety and depression Chronic diarrhea DDD (degenerative disc disease) Decubitus ulcer of buttock Decubitus ulcer, buttock, right, unstageable Diastolic CHF ESRD (end stage renal disease) ESRD (end stage renal disease) on dialysis Fall Fibromyalgia GERD (gastroesophageal reflux disease) History of breast cancer Previously followed by Dr. Santoyo History of pulmonary embolus (PE) 08/2016 History of stroke 11/14/16 Hyperlipidemia Hypertension Hypoxemic respiratory failure, chronic Incomplete bladder emptying Internal and external bleeding hemorrhoids Lives in assisted living facility Low BP Lumbar spinal stenosis Non-STEMI (non-ST elevated myocardial infarction) Osteoarthritis Paroxysmal A-fib Peritoneal dialysis catheter in place Recurrent UTI Restrictive lung disease Urinary retention Urinary tract infection UTI (urinary tract infection) Surgical History History of back surgery History of esophagogastroduodenoscopy (EGD) 08/03/17 mild gastritis and duodenitis History of hemiarthroplasty of left hip 11/18/18: Dr. Mendoza History of hysterectomy History of lumpectomy of left breast History of right cataract surgery Family History Other Cancer Denies family history of Anesthesia complication Bleeding disorder Social History Second hand smoke exposure: No Alcohol intake: never Substance/Drug Use: never Adopted: No Caregiver/support person: Yes Lives independently: Yes Housing: Assisted Living Facility Marital status: Marital status details: with dementia Additional social history: FULL CODE DISCUSSED WITH PATIENT ON 02/04/20 Vitals/I&O/Wt Last Vital Signs Temp 97.9 F 03/11/23 08:00 Pulse 87 03/11/23 08:00 Resp 18 03/11/23 08:00 BP 149/78 03/11/23 08:00 Pulse Ox 92 03/11/23 08:00 O2 Del Method Room Air 03/11/23 03:38 03/10/23 03/11/23 03/11/23 22:59 06:59 14:59 Intake Total 595.333 / 715.333 240 / 240 Balance 595.333 / 715.333 240 / 240 Weight last 48 hrs Weight 115 lb 8 oz Weight 116 lb Weight 110 lb Physical Exam Narrative: General : Patient is well developed , no acute distress, oriented x3 Head : Normal cephalic, a-traumatic. Ears : Pinnae and external canal are normal. Hearing is normal. Eyes : PERRLA, Sclera and injection are normal. No conjunctival discharge. Nose : Mucous membranes are without erythema. Throat : buccal mucosa is normal, gums are without significant recession or hypertrophy. Lungs : Equal chest rise bilaterally, no use of accessory muscles, trachea is midline. Cor : Rate and rhythm are normal. Abdomen : Soft, ND, NT, no g/r/m Extremities : No edema, no cyanosis or clubbing, dorsalis pedis pulses are present bilaterally, non-tender to palpation of calves. Upper extremities are normal bilaterally. Back : non-tender to palpation, no CVA tenderness. Neuro : CN II - XII intact, Upper and lower extremities have equal and full strength Data 03/11/23 04:30 03/11/23 04:30 A&P Assessment and plan (1) ESRD (end stage renal disease): Plan Temporary hemodialysis catheter placement The risk and benefits of the procedure, including allergy, bleeding, infection, scar, numbness, pain, damage surrounding structures, was explained to the patient. She is understanding the risks and wishes to proceed. Coding Level of Care Code 15992 Diagnoses ESRD (end stage renal disease) N18.6
[2023-03-10 10:55] LABS: Hematocrit 29.2 % (36-47)
[2023-03-10] MEDS: ciprofloxacin 500 mg Tablet 250 MG PO (14:08)
--- NOTE | 2023-03-10 14:26 | P.PN_ITS ---
Subjective Subjective: She denies any hematemesis, no blood in stool, but there was a question of possible clot in the stool yesterday. Denies any abdominal pain. Overall has been somewhat tired, has been having difficulties with tolerating dialysis, gets weak, gets diarrhea, we had a long discussion with her and her daughter regarding her health issues, including consideration of goals of care as also discussed on admission, discussed consideration of comfort measures, hospice care, not continuing dialysis, versus replacing dialysis catheter, resuming dialysis, on further consideration she states she would like to still go ahead and resume dialysis for now. Additionally discussed acute anemia, anticoagulation, recent DVT, hip fracture, still only toe-touch weightbearing on left lower extremity. Vitals/I&O/Wt Last Vital Signs Temp 97.1 F L 03/10/23 05:33 Pulse 69 03/10/23 12:00 Resp 13 03/10/23 12:00 BP 128/64 03/10/23 12:00 Pulse Ox 93 03/10/23 12:00 O2 Del Method Room Air 03/10/23 01:23 03/09/23 03/10/23 03/10/23 22:59 06:59 14:59 Intake Total 450 / 450 Balance 450 / 450 Weight last 48 hrs Weight 52.617 kg Weight 49.895 kg Physical Exam Narrative: Accompanied by her daughter. Const: COMMON NORMALS: patient oriented x3 and alert GENERAL APPEARANCE: cooperative and frail appearing ORIENTATION/CONSCIOUSNESS: Yes awake HENMT: COMMON NORMALS: oropharynx normal Neck/C-Spine: COMMON NORMALS: no JVD Resp: COMMON NORMALS: normal respiratory effort and clear to auscultation bilaterally AUSCULTATION: clear to auscultation bilaterally Cardio: COMMON NORMALS: no JVD, regular rhythm, S1 normal heart sound present, S2 normal heart sound present and No murmurs present (Cardio) RHYTHM: regular rhythm HEART SOUNDS: S1 normal heart sound present and S2 normal heart sound present GI: COMMON NORMALS: Normal to inspection, nondistended, normoactive bowel sounds present, Soft to palpation and non-tender PALPATION: Yes Soft to palpation Extremity: COMMON NORMALS: no joint enlargement and no pedal edema Neuro: COMMON NORMALS: patient oriented x3 and moves all extremities SENSORIUM/ORIENTATION: Yes alert Skin: COMMON NORMALS: no rashes or lesions noted GENERAL SKIN EXAM: no rashes or lesions noted Data 03/10/23 10:38 03/09/23 21:53 A&P Assessment and plan (1) Anemia: Appears to have an overly high response to blood transfusion, hemoglobin initially noted 11, repeat is 9 9. Still somewhat high compared to initial 6.6, but she did receive 2 units. Discussed the results with her and her daughter. Possible cause reported in stool. Recently found to have gastritis on EGD. Was on lower dose Eliquis 2.5 mg twice daily. For now we discussed holding anticoagulation, she is at increased risk of DVT given recent fracture, still is only toe-touch weightbearing on left lower extremity. We discussed options going forward, consideration of monitoring, reassessment of hemoglobin, if in fact the first result was spurious, possibly no GI bleed, however, if still anemic, her hemoglobin decreasing, discussed alternative considerations, with no anticoagulation, but is still at risk of DVT, consideration of IVC filter. Consideration of goals of care, for now she would like to still proceed with hemodialysis and medical treatments. We will repeat hemoglobin again tonight and tomorrow morning. If repeat hemoglobin tonight without significant change may transfer to medical surgical floor. SCD for DVT prophylaxis. Previously on anticoagulation, at risk of severe/life-threatening bleed. (2) DVT (deep venous thrombosis): Eliquis is on hold due to suspected GI bleeding. Consideration of further options discussed with her and her daughter, if no appreciable GI bleeding, consideration of trial of restarting anticoagulation, otherwise if GI bleeding, consideration of IVC filter. May benefit from referral for additional assessment possibly with push enteroscopy, capsule endoscopy, etc. Versus ongoing discussion of goals of care in case he decides to proceed to comfort measures but so far has been wanting to resume dialysis and continue medical care. Recent nonocclusive DVT of left peroneal and posterior tibial veins. She was started on Eliquis at that time. Follow-up venous ultrasound shows no DVT on 02/19/2023. No further anticoagulation in a patient with a calf thrombosis. Patient is too high risk with recent falls and recurrent anemia. (3) Decubitus ulcer of left lower back, stage 2: Present on admission. Continue with wound management. (4) ESRD (end stage renal disease): Discussed with nephrology, discussed with surgery. Noted occlusion of left AV graft. She missed dialysis on Monday. Unable to obtain tunneled catheter today, discussed consideration of temporary catheter, surgery placing temporary catheter to allow for dialysis. (5) Acute GI bleeding: Patient was found to have moderate erosive gastritis on EGD approximately 02 20- . She has been on a PPI twice daily since that time. She continues to have stool positive for Hemoccult. Hemoglobin 6.6 on presentation, 50 units appears to have gone as high as 11 but this appears to be spurious result, not sure whether 6.6 is reviewed. Recheck is 9.9. We will follow-up again. Some report of possible blood clot in the stool yesterday. For now anticoagulation is held. Reviewed platelet level. WBC reviewed and is normal. (6) Hypertension: Hold Bumex, carvedilol. Monitor blood pressure. Qualifiers: Hypertension type: renovascular hypertension Qualified Code(s): I15.0 - Renovascular hypertension (7) Anxiety and depression: Plan Goals of care discussion: Long goals of care discussion with her and her daughter, for now on consideration of all options she still resigned to resuming dialysis even though has not been tolerating it very well. She and her daughter both understand to let us know at any time regarding possible transition to hospice and/or comfort measures. Attestations Medical Necessity Statement*: Continue admission for assessment management of possible GI bleed, acute anemia, on anticoagulation, with recent DVT, reduced mobility with only toe-touch weightbearing on left lower extremity, frail elderly lady. Diagnoses Anemia D64.9 DVT (deep venous thrombosis) I82.409 Decubitus ulcer of left lower back, stage 2 L89.142 ESRD (end stage renal disease) N18.6 Acute GI bleeding K92.2 Hypertension I15.0 Hypertension type: renovascular hypertension Anxiety and depression F41.9; F32.9
--- NOTE | 2023-03-10 15:21 | PM.CONSULT ---
Providers/Reason For Consult Consulting Physician/Specialty*: Claudia Strickland DO, telenephrology Reason for Consult*: ESRD Requesting Physician: Dedrick Rodriguez Attending Physician: Dedrick Rodriguez Primary Care Provider: Rajinder Rico MD History of Present Illness History of Present Illness Milla Thomas is a 87 year old female presents with severe anemia, clotted dialysis access. History obtained from daughter Gaby Pete at bedside. Review of Systems Const: Reports: body aches and fatigue Medications/Allergies Home Medications Medication Instructions Recorded Confirmed Last Taken Type acetaminophen 325 mg tablet 650 mg PO Q4H PRN Pain 11/13/19 03/10/23 03/29/21 History (Tylenol) citalopram 10 mg tablet (Celexa) 10 mg PO DAILY 11/13/19 03/10/23 02/18/23 History ipratropium 0.5 mg-albuterol 3 mg 3 ml inhalation Q4H PRN Shortness 11/13/19 03/10/23 Unknown History (2.5 mg base)/3 mL nebulization Of Breath soln vitamin B comp no.3-folic acid 1 1 tab PO DAILY 02/25/20 03/10/23 02/18/23 History mg-vit C 60 mg-biotin 300 mcg tablet ([facility]) tamsulosin 0.4 mg capsule (Flomax) 0.4 mg PO BEDTIME 09/08/20 03/10/23 02/17/23 History calcium acetate(phosphat bind) 667 667 mg PO TID 03/29/21 03/10/23 02/18/23 History mg tablet bisacodyl 10 mg rectal suppository 10 mg ME DAILY PRN constipation 10/10/21 03/10/23 Unknown History cholecalciferol (vitamin D3) 25 25 mcg PO DAILY 10/10/21 03/10/23 02/18/23 History mcg (1,000 unit) capsule (Vitamin D3) elastic bandage 10/10/21 03/10/23 Unknown History elastic bandage 3 10/10/21 03/10/23 Unknown History lidocaine-prilocaine 2.5 %-2.5 % 1 applic topical .COMPLEX 10/10/21 03/10/23 Unknown History topical cream ondansetron HCl 8 mg tablet 8 mg PO TID PRN nausea and vomiting 10/10/21 03/10/23 02/01/23 History promethazine 12.5 mg rectal 12.5 mg ME Q8H PRN nausea and 10/10/21 03/10/23 Unknown History suppository vomiting simethicone 80 mg chewable tablet 80 mg PO DAILY PRN abdominal 10/10/21 03/10/23 Unknown History (Gas Relief (simethicone)) distention sodium phosphates 19 gram-7 118 ml ME DAILY PRN constipation 10/10/21 03/10/23 Unknown History gram/118 mL enema (Fleet Enema) alprazolam 0.25 mg tablet 0.25 mg PO BID PRN Anxiety 30 days 07/07/22 03/10/23 02/17/23 Rx #60 tabs bumetanide 1 mg tablet 1 mg PO .COMPLEX 01/18/23 03/10/23 02/18/23 History oxycodone myristate 18 mg capsule 18 mg PO BID 01/19/23 03/10/23 02/18/23 History sprinkle extended release 12hr(DON'T CRUSH) (Xtampza ER) polyethylene glycol 3350 17 17 g PO DAILY PRN Constipation 01/19/23 03/10/23 Unknown History gram/dose oral powder promethazine 25 mg tablet 25 mg PO BID PRN Nausea And 01/19/23 03/10/23 Unknown History Vomiting sevelamer carbonate 800 mg tablet 800 mg PO TID 01/19/23 03/10/23 02/18/23 History simethicone 125 mg capsule See Rx Instructions .Route .COMPLEX 01/19/23 03/10/23 Unknown History diphenoxylate-atropine 2.5 1 tab PO QID PRN Diarrhea 02/01/23 03/10/23 02/18/23 History mg-0.025 mg tablet (Lomotil) hydrocodone 10 mg-acetaminophen 1 tab PO Q4H PRN Pain 02/01/23 03/10/23 02/18/23 History 325 mg tablet loperamide 2 mg tablet 2 mg PO Q8H PRN Diarrhea 02/01/23 03/10/23 Unknown History naloxone 0.4 mg/mL injection See Rx Instructions .Route .COMPLEX 02/01/23 03/10/23 Unknown History solution witch maia 50 % topical pads 1 pad topical BID PRN Hemorrhoids 02/01/23 03/10/23 Unknown History (Hemorrhoidal (witch maia)) lactulose 10 gram/15 mL oral 30 ml PO BID 02/18/23 03/10/23 02/15/23 History solution (Constulose) apixaban 5 mg tablet (Eliquis) 2.5 mg PO DAILY #120 tabs 02/24/23 03/10/23 02/18/23 Rx carvedilol 6.25 mg tablet 3.125 mg PO SuTuThSa@0900,2100 #90 02/24/23 03/10/23 Unknown Rx tabs pantoprazole 40 mg tablet,delayed 40 mg PO BID 6 weeks #84 tabs 02/24/23 03/10/23 Unknown Rx release sucralfate 100 mg/mL oral 1 g (10 mL) PO AC&BEDTIME 4 weeks 02/24/23 03/10/23 Unknown Rx suspension #1,000 mL alprazolam 0.5 mg tablet 0.5 mg PO DAILY@1800 03/10/23 03/10/23 Unknown History Allergies Allergy/AdvReac Type Severity Reaction Status Date / Time amitriptyline [From Elavil] Allergy Unknown Unknown Verified 03/01/23 12:22 cyclobenzaprine Allergy Unknown Unknown Verified 03/01/23 12:22 [From Flexeril] Penicillins Allergy Unknown Unknown Verified 03/01/23 12:22 pentazocine [From Talwin] Allergy Unknown Unknown Verified 03/01/23 12:22 pregabalin [From Lyrica] Allergy Unknown Unknown Verified 03/01/23 12:22 tizanidine Allergy Unknown Unknown Verified 03/01/23 12:22 doxycycline Allergy Unknown Verified 03/01/23 12:22 morphine Allergy Unknown Verified 03/01/23 12:22 naloxone Allergy Unknown Verified 03/01/23 12:22 Sulfa (Sulfonamide Allergy Unknown Verified 03/01/23 12:22 Antibiotics) sulfamethoxazole AdvReac kidney Verified 03/01/23 12:22 [From Bactrim] trimethoprim [From Bactrim] AdvReac kidney Verified 03/01/23 12:22 Current Medications Generic Name Dose Route Start Last Admin Trade Name Freq PRN Reason Stop Dose Admin Hydrocodone Bitart/Acetaminophen 1 tab 03/10/23 01:18 03/10/23 09:49 Hydrocodone-Acetaminophen 10-325 Mg Tablet PO 1 tab Q4H PRN Administration Pain Carvedilol 3.125 mg 03/10/23 09:00 03/10/23 08:59 Carvedilol 6.25 Mg Tablet PO 3.125 mg BID CONNOR Administration Ciprofloxacin HCl 250 mg 03/10/23 14:00 03/10/23 14:08 Ciprofloxacin 500 Mg Tablet PO 250 mg DAILY@1400 CONNOR Administration Protocol Citalopram Hydrobromide 10 mg 03/10/23 09:00 03/10/23 08:59 Citalopram 20 Mg Tablet PO 10 mg DAILY CONNOR Administration Docusate Sodium 100 mg 03/10/23 09:00 03/10/23 08:59 Docusate Sodium 10 Mg/Ml (5ml) Liq PO 100 mg BID CONNOR Administration Dextrose/Sodium Chloride 1,000 mls @ 40 mls/hr 03/10/23 01:21 03/10/23 02:19 Dextrose 5%-Sod Chloride 0.9% IV 40 mls/hr .Q24H CONNOR Administration Non-Formulary Medication 18 mg 03/10/23 09:00 03/10/23 08:39 Oxycodone Myristate [Xtampza Er] PO Not Given BID CONNOR Pantoprazole Sodium 40 mg 03/10/23 01:21 03/10/23 14:09 Pantoprazole 40 Mg Sdv IVP 40 mg Q12H CONNOR Administration Sevelamer Carbonate 800 mg 03/10/23 09:00 03/10/23 14:08 Sevelamer 800 Mg Tablet PO 800 mg TID CONNOR Administration PFSH Acute PFSH: Medical History Acetabulum fracture, left Anemia of chronic disease Anxiety and depression Chronic diarrhea DDD (degenerative disc disease) Decubitus ulcer of buttock Decubitus ulcer, buttock, right, unstageable Diastolic CHF ESRD (end stage renal disease) ESRD (end stage renal disease) on dialysis Fall Fibromyalgia GERD (gastroesophageal reflux disease) History of breast cancer Previously followed by Dr. Santoyo History of pulmonary embolus (PE) 08/2016 History of stroke 11/14/16 Hyperlipidemia Hypertension Hypoxemic respiratory failure, chronic Incomplete bladder emptying Internal and external bleeding hemorrhoids Lives in assisted living facility Low BP Lumbar spinal stenosis Non-STEMI (non-ST elevated myocardial infarction) Osteoarthritis Paroxysmal A-fib Peritoneal dialysis catheter in place Recurrent UTI Restrictive lung disease Urinary retention Urinary tract infection UTI (urinary tract infection) Surgical History History of back surgery History of esophagogastroduodenoscopy (EGD) 08/03/17 mild gastritis and duodenitis History of hemiarthroplasty of left hip 11/18/18: Dr. Mendoza History of hysterectomy History of lumpectomy of left breast History of right cataract surgery Family History Other Cancer Denies family history of Anesthesia complication Bleeding disorder Social History Second hand smoke exposure: No Alcohol intake: never Substance/Drug Use: never Adopted: No Caregiver/support person: Yes Lives independently: Yes Housing: Assisted Living Facility Marital status: Marital status details: with dementia Additional social history: FULL CODE DISCUSSED WITH PATIENT ON 02/04/20 Vitals/I&O/Wt Last Vital Signs Temp 97.1 F L 03/10/23 05:33 Pulse 76 03/10/23 15:00 Resp 18 03/10/23 15:00 BP 125/62 03/10/23 15:00 Pulse Ox 93 03/10/23 15:00 O2 Del Method Room Air 03/10/23 01:23 03/10/23 03/10/23 03/10/23 06:59 14:59 22:59 Intake Total 450 / 450 120 / 120 Balance 450 / 450 120 / 120 Weight last 48 hrs Weight 52.617 kg Weight 49.895 kg Physical Exam Const: COMMON NORMALS: no acute distress and alert Extremity: NARRATIVE EXTREMITY EXAM: no edema Neuro: SENSORIUM/ORIENTATION: Yes alert Data 03/10/23 10:38 03/09/23 21:53 Other Labs: Mg 1.6 ABG Interpretation 1: 03/09/23 22:40 ABG pH 7.34 L ABG pCO2 43.1 ABG pO2 68.5 L ABG HCO3 23.0 ABG Base Excess -2.6 L Other data: seen via telemedicine with assistance of RN at bedside A&P Assessment and plan (1) ESRD (end stage renal disease): Plan 1. ESRD, has not had HD since Monday. Femoral dialysis catheter placed 2. Clotted dialysis access 3. Anemia s/p transfusion 1u PRBC, Hb much improved Rec: HD today and again tomorrow. Then remove femoral catheter. Family has decided not to pursue AVF declot at this time. They would like tunneled HD catheter placed. Place tunneled HD catheter when possible Consult Attestations Medical Necessity Statement: see above Time Spent in Patient Care: 16 - 35 minutes Coding Level of Care Code Acute Code for Chg Fwd Diagnoses ESRD (end stage renal disease) N18.6
--- NOTE | 2023-03-10 17:39 | PC.NURSE ---
Report called to Medical Surgical nurse- Sanjuanita. Patient to be transferred via bed accompanied by this nurse with the assistance of SHANIA Oneal. Patient's daughter noted to be at bedside at this time.
[2023-03-10 21:19] LABS: Hepatitis B Surface AB 17.8 (11.5-1000); Hepatitis B Surface Antigen Non-Reactive (Nonreactive)
[2023-03-10 21:54] LABS: Hepatitis C Virus Antibody Non-Reactive (Nonreactive)
[2023-03-11] VITALS (9 sets, daily range): BP systolic 90–161; BP diastolic 52–78; PULSE 72–87; RESP 14–18; TEMP 36.3–36.9; O2SAT 92–96
[2023-03-11] MEDS: HYDROcodone-acetaminophen 10-325 mg Tablet 1 TAB PO ×4 (02:42→19:11)
[2023-03-11] MEDS: pantoprazole 40 mg SDV IVP ×2 (02:42→13:37)
[2023-03-11 05:24] LABS: Basophils % 0.3 %; Eosinophils # 0.3 10^3/uL (0.0-0.8); Eosinophils % 4.3 %; Hematocrit 31.8 % (36-47); Lymphocytes # 1.3 10^3/uL (0.8-4.8); Lymphocytes % 21.6 %; Mean Corpuscular HGB Conc 32.7 g/dL (30-55); Mean Corpuscular Hemoglobin 32.8 pg (27-33); Mean Corpuscular Volume 100.3 fl (85-98); Mean Platelet Volume 9.8 fL (7.4-10.4); Monocytes # 0.5 10^3/uL (0.2-0.9); Monocytes % 7.5 %; Neutrophils # 3.97 10^3/uL (1.8-7.7); Nucleated Red Blood Cells % 0 %; Platelet Count 173 10^3/cmm (157-399); Red Blood Count 3.17 10^6/uL (3.85-5.65); Red Cell Distribution Width 20.4 % (12.1-15.1); White Blood Count 6.02 10^3/uL (3.29-11.43)
[2023-03-11 05:58] LABS: Anion Gap 11.9 (5-19); Blood Urea Nitrogen 58 mg/dL (8-23); Calcium 8.1 mg/dL (8.5-10.5); Carbon Dioxide 24 mmol/L (22-29); Chloride 104 mmol/L (98-107); Glucose 89 mg/dL (65-115); Osmolality Calculated 298 mOsm/kg (285-295); Potassium 3.9 mmol/L (3.5-5.1); Sodium 136 mmol/L (136-145)
[2023-03-11] MEDS: sevelamer 800 mg Tablet PO ×3 (08:44→19:07)
[2023-03-11] MEDS: citalopram 20 mg Tablet 10 MG PO (08:45)
[2023-03-11] MEDS: carvedilol 6.25 mg Tablet 3.125 MG PO ×2 (08:45→19:07)
--- NOTE | 2023-03-11 09:52 | PM.PN ---
Subjective Subjective: feels better Vitals/I&O/Wt Last Vital Signs Temp 97.9 F 03/11/23 08:00 Pulse 87 03/11/23 08:00 Resp 18 03/11/23 08:00 BP 149/78 03/11/23 08:00 Pulse Ox 92 03/11/23 08:00 O2 Del Method Room Air 03/11/23 03:38 03/10/23 03/11/23 03/11/23 22:59 06:59 14:59 Intake Total 595.333 / 715.333 240 / 240 Balance 595.333 / 715.333 240 / 240 Weight last 48 hrs Weight 52.39 kg Weight 52.617 kg Weight 49.895 kg Physical Exam Const: COMMON NORMALS: no acute distress and alert Extremity: COMMON NORMALS: no pedal edema Neuro: SENSORIUM/ORIENTATION: Yes alert Data 03/11/23 04:30 03/11/23 04:30 Other data: seen vis telemedicine with assitance of RN at bedside A&P Assessment and plan (1) ESRD (end stage renal disease): Plan 1. ESRD, clotted dialysis access, s/p placement Femoral dialysis catheter, HD yesterday 2. Anemia s/p transfusion 1u PRBC, Hb much improved Rec: HD today, 3h, 3K, 500 ml UF. Then remove femoral catheter. Patient and family has decided not to pursue AVF declot at this time. They would like tunneled HD catheter placed. Place tunneled HD catheter when possible, prior to next planned HD MondayMar 18 Attestations Medical Necessity Statement*: see above Time Spent in Patient Care: 16 - 35 minutes Coding Level of Care Code Acute Code for Chg Fwd Diagnoses ESRD (end stage renal disease) N18.6
--- NOTE | 2023-03-11 10:21 | PM.PN ---
Subjective Subjective: Patient seen and examined. She says she is feeling better today Vitals/I&O/Wt Last Vital Signs Temp 97.9 F 03/11/23 08:00 Pulse 87 03/11/23 08:00 Resp 18 03/11/23 08:00 BP 149/78 03/11/23 08:00 Pulse Ox 92 03/11/23 08:00 O2 Del Method Room Air 03/11/23 03:38 03/10/23 03/11/23 03/11/23 22:59 06:59 14:59 Intake Total 595.333 / 715.333 240 / 240 Balance 595.333 / 715.333 240 / 240 Weight last 48 hrs Weight 115 lb 8 oz Weight 116 lb Weight 110 lb Physical Exam Narrative: General: No acute distress, awake alert and oriented x3 Abdomen: Soft, nontender, nondistended, no guarding rebound or masses Catheter in place without signs of erythema or exudate Data 03/11/23 04:30 03/11/23 04:30 A&P Assessment and plan (1) ESRD (end stage renal disease): Plan I am available for tunneled dialysis catheter placement if requested Attestations Medical Necessity Statement*: Per primary Coding Level of Care Code 58385 Diagnoses ESRD (end stage renal disease) N18.6
[2023-03-11] MEDS: ciprofloxacin 500 mg Tablet 250 MG PO (14:16)
[2023-03-11] MEDS: acetaminophen 325 mg Tablet 650 MG PO (16:33)
[2023-03-11] MEDS: heparin, porcine 1,000 unit/mL INJ 10 mL 1000 UNIT IV (17:00)
[2023-03-11] MEDS: ALPRAZolam 0.5 mg Tablet PO (19:08)
--- NOTE | 2023-03-11 20:17 | P.PN_ITS ---
Subjective Subjective: States she is not feeling the best today, but otherwise no new symptoms. No outward bleeding. No chest pain. Vitals/I&O/Wt Last Vital Signs Temp 97.3 F L 03/11/23 19:57 Pulse 87 03/11/23 19:57 Resp 18 03/11/23 19:57 BP 90/52 03/11/23 19:57 Pulse Ox 94 03/11/23 19:57 O2 Del Method Room Air 03/11/23 03:38 03/11/23 03/11/23 03/11/23 06:59 14:59 22:59 Intake Total 480 / 480 Balance 480 / 480 Weight last 48 hrs Weight 52.39 kg Weight 52.617 kg Weight 49.895 kg Physical Exam Const: COMMON NORMALS: patient oriented x3 and alert GENERAL APPEARANCE: cooperative and frail appearing ORIENTATION/CONSCIOUSNESS: Yes awake HENMT: COMMON NORMALS: oropharynx normal Neck/C-Spine: COMMON NORMALS: no JVD Resp: COMMON NORMALS: normal respiratory effort and clear to auscultation bilaterally AUSCULTATION: clear to auscultation bilaterally Cardio: COMMON NORMALS: no JVD, regular rhythm, S1 normal heart sound present, S2 normal heart sound present and No murmurs present (Cardio) RHYTHM: regular rhythm HEART SOUNDS: S1 normal heart sound present and S2 normal heart sound present GI: COMMON NORMALS: Normal to inspection, nondistended, normoactive bowel sounds present, Soft to palpation and non-tender PALPATION: Yes Soft to palpation Extremity: COMMON NORMALS: no joint enlargement and no pedal edema Neuro: COMMON NORMALS: patient oriented x3 and moves all extremities SENSORIUM/ORIENTATION: Yes alert Skin: COMMON NORMALS: no rashes or lesions noted GENERAL SKIN EXAM: no rashes or lesions noted Data 03/11/23 04:30 03/11/23 04:30 Micro: Microbiology 03/10/23 23:05 C.difficile Toxin B Gene (PCR) - Final Stool Routine Collection A&P Assessment and plan (1) Anemia: Today repeat hemoglobin again noted 10.4. She does have diarrhea, some question of hemoconcentration. Assess diarrhea. Additionally will repeat CBC. In case remaining stable, will discuss consideration of further steps, possible trial anticoagulation. CBC reviewed. Repeat blood counts. SCD for DVT prophylaxis. Previously on anticoagulation, at risk of severe/life-threatening bleed. (2) DVT (deep venous thrombosis): Eliquis is on hold due to suspected GI bleeding. Consideration of further options discussed with her and her daughter, if no appreciable GI bleeding, consideration of trial of restarting anticoagulation, otherwise if GI bleeding, consideration of IVC filter. May benefit from referral for additional assessment possibly with push enteroscopy, capsule endoscopy, etc. Versus ongoing discussion of goals of care in case he decides to proceed to comfort measures but so far has been wanting to resume dialysis and continue medical care. Recent nonocclusive DVT of left peroneal and posterior tibial veins. She was started on Eliquis at that time. Follow-up venous ultrasound shows no DVT on 02/19/2023. No further anticoagulation in a patient with a calf thrombosis. Patient is too high risk with recent falls and recurrent anemia. (3) Decubitus ulcer of left lower back, stage 2: Present on admission. Continue with wound management. (4) ESRD (end stage renal disease): Discussed with nephrology, discussed with surgery. Noted occlusion of left AV graft. She missed dialysis on Monday. Unable to obtain tunneled catheter today, discussed consideration of temporary catheter, surgery placing temporary catheter to allow for dialysis. (5) Acute GI bleeding: So far no melena in stool. We will request Hemoccult. Anticoagulation is on hold. Reassess blood counts. Patient was found to have moderate erosive gastritis on EGD approximately 8 - . She has been on a PPI twice daily since that time. She continues to have stool positive for Hemoccult. Hemoglobin 6.6 on presentation (6) Hypertension: Hold Bumex, carvedilol. Monitor blood pressure. Qualifiers: Hypertension type: renovascular hypertension Qualified Code(s): I15.0 - Renovascular hypertension (7) Anxiety and depression: Plan Goals of care discussion: Long goals of care discussion with her and her daughter, for now on consideration of all options she still resigned to resuming dialysis even though has not been tolerating it very well. She and her daughter both understand to let us know at any time regarding possible transition to hospice and/or comfort measures. Diarrhea: C. difficile checked, noted negative. Prior acetabular fracture: Only toe-touch weightbearing on left lower extremity. Discussed with case management. Attestations Medical Necessity Statement*: Continue admission for assessment management of acute anemia, possible GI bleed, on anticoagulation, with recent DVT, hip fracture, limited mobility, and lady of advanced age with ESRD and other comorbidities. Diagnoses Anemia D64.9 DVT (deep venous thrombosis) I82.409 Decubitus ulcer of left lower back, stage 2 L89.142 ESRD (end stage renal disease) N18.6 Acute GI bleeding K92.2 Hypertension I15.0 Hypertension type: renovascular hypertension Anxiety and depression F41.9; F32.9
[2023-03-12] MEDS: pantoprazole 40 mg SDV IVP ×2 (00:41→14:31)
[2023-03-12 04:00] VITALS: BP 112/69; PULSE 70; RESP 16; TEMP 36.5; O2SAT 95
[2023-03-12 05:43] LABS: Basophils % 0.4 %; Eosinophils # 0.2 10^3/uL (0.0-0.8); Eosinophils % 4.3 %; Hematocrit 27.6 % (36-47); Lymphocytes # 1.7 10^3/uL (0.8-4.8); Lymphocytes % 31.1 %; Mean Corpuscular HGB Conc 33.3 g/dL (30-55); Mean Corpuscular Hemoglobin 33.1 pg (27-33); Mean Corpuscular Volume 99.3 fl (85-98); Mean Platelet Volume 10.2 fL (7.4-10.4); Monocytes # 0.5 10^3/uL (0.2-0.9); Monocytes % 9.6 %; Neutrophils # 2.89 10^3/uL (1.8-7.7); Neutrophils % 54.4 %; Nucleated Red Blood Cells % 0 %; Platelet Count 163 10^3/cmm (157-399); Red Blood Count 2.78 10^6/uL (3.85-5.65); Red Cell Distribution Width 19.8 % (12.1-15.1); White Blood Count 5.31 10^3/uL (3.29-11.43)
[2023-03-12 06:08] LABS: Anion Gap 8.6 (5-19); Blood Urea Nitrogen 31 mg/dL (8-23); Calcium 7.8 mg/dL (8.5-10.5); Carbon Dioxide 26 mmol/L (22-29); Chloride 106 mmol/L (98-107); Glucose 78 mg/dL (65-115); Osmolality Calculated 289 mOsm/kg (285-295); Potassium 3.6 mmol/L (3.5-5.1); Sodium 137 mmol/L (136-145)
[2023-03-12 07:42] VITALS: BP 153/79; PULSE 76; RESP 16; TEMP 37.1; O2SAT 93
[2023-03-12] MEDS: sevelamer 800 mg Tablet PO ×2 (09:56→11:43)
[2023-03-12] MEDS: citalopram 20 mg Tablet 10 MG PO (09:56)
[2023-03-12] MEDS: carvedilol 6.25 mg Tablet 3.125 MG PO ×2 (09:56→17:17)
--- NOTE | 2023-03-12 10:08 | PM.PN ---
Subjective Subjective: continues to feel weak Vitals/I&O/Wt Last Vital Signs Temp 98.7 F 03/12/23 07:42 Pulse 76 03/12/23 07:42 Resp 16 03/12/23 07:42 BP 153/79 03/12/23 07:42 Pulse Ox 93 03/12/23 07:42 O2 Del Method Room Air 03/11/23 03:38 03/11/23 03/12/23 03/12/23 22:59 06:59 14:59 Intake Total 740 / 1220 0 / 0 Output Total 414 / 414 Balance 326 / 806 0 / 0 Weight last 48 hrs Weight 56.245 kg Weight 59 kg Weight 52.39 kg Weight 60.5 kg Physical Exam Const: COMMON NORMALS: no acute distress and alert Extremity: COMMON NORMALS: no pedal edema Neuro: SENSORIUM/ORIENTATION: Yes alert Data 03/12/23 04:40 03/12/23 04:40 Other Labs: albumin 2.1, josiah Ca 9.4 Micro: Microbiology 03/11/23 23:45 Occult Blood (FIT) - Final Stool - Stool Aspirate 03/10/23 23:05 C.difficile Toxin B Gene (PCR) - Final Stool Routine Collection Other data: seen via telemedicine with assistance of RN at bedside A&P Assessment and plan (1) ESRD (end stage renal disease): Plan 1. ESRD, clotted dialysis access, s/p placement Femoral dialysis catheter, HD Monday and Monday. Next HD Monday. 2. Anemia s/p transfusion 1u PRBC 3. Poor nutrition Rec: Tunneled HD catheter placement prior to next HD Monday. Remove femoral vein temporary HD catheter. D/c phos binder and check phos, add calorie and protein supplements Attestations Medical Necessity Statement*: see above Time Spent in Patient Care: 16 - 35 minutes Coding Level of Care Code Acute Code for Chg Fwd Diagnoses ESRD (end stage renal disease) N18.6
[2023-03-12 11:30] VITALS: BP 164/83; PULSE 82; RESP 17; TEMP 36.8; O2SAT 93
[2023-03-12] MEDS: HYDROcodone-acetaminophen 10-325 mg Tablet 1 TAB PO ×3 (12:38→23:28)
[2023-03-12 14:00] VITALS: PULSE 71
[2023-03-12] MEDS: ciprofloxacin 500 mg Tablet 250 MG PO (14:31)
[2023-03-12] MEDS: ALPRAZolam 0.5 mg Tablet PO (17:17)
--- NOTE | 2023-03-12 17:41 | P.HP_ITS ---
Providers/Chief Complaint Admitting Physician: Antonio Virgen DO Primary Care Provider: Rajinder Rico MD Chief Complaint: AMS History of Present Illness Milla Thomas is a 87 year old female Review of Systems General: Reports: 10 or more systems reviewed and unremarkable except in HPI a nd below Medications/Allergies Home Medications Medication Instructions Recorded Confirmed Last Taken Type acetaminophen 325 mg tablet 650 mg PO Q4H PRN Pain 11/13/19 03/10/23 03/29/21 History (Tylenol) citalopram 10 mg tablet (Celexa) 10 mg PO DAILY 11/13/19 03/10/23 02/18/23 History ipratropium 0.5 mg-albuterol 3 mg 3 ml inhalation Q4H PRN Shortness 11/13/19 03/10/23 Unknown History (2.5 mg base)/3 mL nebulization Of Breath soln vitamin B comp no.3-folic acid 1 1 tab PO DAILY 02/25/20 03/10/23 02/18/23 History mg-vit C 60 mg-biotin 300 mcg tablet ([facility]) tamsulosin 0.4 mg capsule (Flomax) 0.4 mg PO BEDTIME 09/08/20 03/10/23 02/17/23 History calcium acetate(phosphat bind) 667 667 mg PO TID 03/29/21 03/10/23 02/18/23 History mg tablet bisacodyl 10 mg rectal suppository 10 mg DC DAILY PRN constipation 10/10/21 03/10/23 Unknown History cholecalciferol (vitamin D3) 25 25 mcg PO DAILY 10/10/21 03/10/23 02/18/23 History mcg (1,000 unit) capsule (Vitamin D3) elastic bandage 10/10/21 03/10/23 Unknown History elastic bandage 3 10/10/21 03/10/23 Unknown History lidocaine-prilocaine 2.5 %-2.5 % 1 applic topical .COMPLEX 10/10/21 03/10/23 Unknown History topical cream ondansetron HCl 8 mg tablet 8 mg PO TID PRN nausea and vomiting 10/10/21 03/10/23 02/01/23 History promethazine 12.5 mg rectal 12.5 mg DC Q8H PRN nausea and 10/10/21 03/10/23 Unknown History suppository vomiting simethicone 80 mg chewable tablet 80 mg PO DAILY PRN abdominal 10/10/21 03/10/23 Unknown History (Gas Relief (simethicone)) distention sodium phosphates 19 gram-7 118 ml DC DAILY PRN constipation 10/10/21 03/10/23 Unknown History gram/118 mL enema (Fleet Enema) alprazolam 0.25 mg tablet 0.25 mg PO BID PRN Anxiety 30 days 07/07/22 03/10/23 02/17/23 Rx #60 tabs bumetanide 1 mg tablet 1 mg PO .COMPLEX 01/18/23 03/10/23 02/18/23 History oxycodone myristate 18 mg capsule 18 mg PO BID 01/19/23 03/10/23 02/18/23 History sprinkle extended release 12hr(DON'T CRUSH) (Xtampza ER) polyethylene glycol 3350 17 17 g PO DAILY PRN Constipation 01/19/23 03/10/23 Unknown History gram/dose oral powder promethazine 25 mg tablet 25 mg PO BID PRN Nausea And 01/19/23 03/10/23 Unknown History Vomiting sevelamer carbonate 800 mg tablet 800 mg PO TID 01/19/23 03/10/23 02/18/23 History simethicone 125 mg capsule See Rx Instructions .Route .COMPLEX 01/19/23 03/10/23 Unknown History diphenoxylate-atropine 2.5 1 tab PO QID PRN Diarrhea 02/01/23 03/10/23 02/18/23 History mg-0.025 mg tablet (Lomotil) hydrocodone 10 mg-acetaminophen 1 tab PO Q4H PRN Pain 02/01/23 03/10/23 02/18/23 History 325 mg tablet loperamide 2 mg tablet 2 mg PO Q8H PRN Diarrhea 02/01/23 03/10/23 Unknown History naloxone 0.4 mg/mL injection See Rx Instructions .Route .COMPLEX 02/01/23 03/10/23 Unknown History solution witch maia 50 % topical pads 1 pad topical BID PRN Hemorrhoids 02/01/23 03/10/23 Unknown History (Hemorrhoidal (witch maia)) lactulose 10 gram/15 mL oral 30 ml PO BID 02/18/23 03/10/23 02/15/23 History solution (Constulose) apixaban 5 mg tablet (Eliquis) 2.5 mg PO DAILY #120 tabs 02/24/23 03/10/23 02/18/23 Rx carvedilol 6.25 mg tablet 3.125 mg PO SuTuThSa@0900,2100 #90 02/24/23 03/10/23 Unknown Rx tabs pantoprazole 40 mg tablet,delayed 40 mg PO BID 6 weeks #84 tabs 02/24/23 03/10/23 Unknown Rx release sucralfate 100 mg/mL oral 1 g (10 mL) PO AC&BEDTIME 4 weeks 02/24/23 03/10/23 Unknown Rx suspension #1,000 mL alprazolam 0.5 mg tablet 0.5 mg PO DAILY@1800 03/10/23 03/10/23 Unknown History Allergies Allergy/AdvReac Type Severity Reaction Status Date / Time amitriptyline [From Elavil] Allergy Unknown Unknown Verified 03/01/23 12:22 cyclobenzaprine Allergy Unknown Unknown Verified 03/01/23 12:22 [From Flexeril] Penicillins Allergy Unknown Unknown Verified 03/01/23 12:22 pentazocine [From Talwin] Allergy Unknown Unknown Verified 03/01/23 12:22 pregabalin [From Lyrica] Allergy Unknown Unknown Verified 03/01/23 12:22 tizanidine Allergy Unknown Unknown Verified 03/01/23 12:22 doxycycline Allergy Unknown Verified 03/01/23 12:22 morphine Allergy Unknown Verified 03/01/23 12:22 naloxone Allergy Unknown Verified 03/01/23 12:22 Sulfa (Sulfonamide Allergy Unknown Verified 03/01/23 12:22 Antibiotics) sulfamethoxazole AdvReac kidney Verified 03/01/23 12:22 [From Bactrim] trimethoprim [From Bactrim] AdvReac kidney Verified 03/01/23 12:22 PFSH Acute PFSH: Medical History Acetabulum fracture, left Anemia of chronic disease Anxiety and depression Chronic diarrhea DDD (degenerative disc disease) Decubitus ulcer of buttock Decubitus ulcer, buttock, right, unstageable Diastolic CHF ESRD (end stage renal disease) ESRD (end stage renal disease) on dialysis Fall Fibromyalgia GERD (gastroesophageal reflux disease) History of breast cancer Previously followed by Dr. Santoyo History of pulmonary embolus (PE) 08/2016 History of stroke 11/14/16 Hyperlipidemia Hypertension Hypoxemic respiratory failure, chronic Incomplete bladder emptying Internal and external bleeding hemorrhoids Lives in assisted living facility Low BP Lumbar spinal stenosis Non-STEMI (non-ST elevated myocardial infarction) Osteoarthritis Paroxysmal A-fib Peritoneal dialysis catheter in place Recurrent UTI Restrictive lung disease Urinary retention Urinary tract infection UTI (urinary tract infection) Surgical History History of back surgery History of esophagogastroduodenoscopy (EGD) 08/03/17 mild gastritis and duodenitis History of hemiarthroplasty of left hip 11/18/18: Dr. Mendoza History of hysterectomy History of lumpectomy of left breast History of right cataract surgery Family History Other Cancer Denies family history of Anesthesia complication Bleeding disorder Social History Second hand smoke exposure: No Alcohol intake: never Substance/Drug Use: never Adopted: No Caregiver/support person: Yes Lives independently: Yes Housing: Assisted Living Facility Marital status: Marital status details: with dementia Additional social history: FULL CODE DISCUSSED WITH PATIENT ON 02/04/20 Vitals/I&O/Wt Last Vital Signs Temp 98.2 F 03/12/23 11:30 Pulse 71 03/12/23 14:00 Resp 17 03/12/23 11:30 BP 164/83 03/12/23 11:30 Pulse Ox 93 03/12/23 11:30 O2 Del Method Room Air 03/12/23 11:30 03/12/23 03/12/23 03/12/23 06:59 14:59 22:59 Intake Total 240 / 240 240 / 480 Balance 240 / 240 240 / 480 Weight last 48 hrs Weight 124 lb Weight 130 lb 1.164 oz Weight 115 lb 8 oz Weight 133 lb 6.075 oz Physical Exam Const: COMMON NORMALS: no acute distress and alert Extremity: COMMON NORMALS: no pedal edema Neuro: SENSORIUM/ORIENTATION: Yes alert Data 03/12/23 04:40 03/12/23 04:40 Micro: Microbiology 03/11/23 23:45 Occult Blood (FIT) - Final Stool - Stool Aspirate A&P Assessment and plan (1) ESRD (end stage renal disease): (2) Anemia: (3) Acute GI bleeding: (4) DVT (deep venous thrombosis): Unable to tolerate anticoagulation. Already underwent transfusion during this hospitalization. Alternatives for further treatment were discussed. Patient is agreeable with considerations to proceed with IVC filter placement. We will try to coordinate around the time of her dialysis catheter insertion and will coordinate with Dr. Harden's schedule on Monday. Attestations Medical Necessity Statement*: Due to hip fracture, corrective surgery, post of DVT, bleeding with transfusion, and co morbidities, expect > 2 midnight stay Coding Level of Care Code 11960 Diagnoses ESRD (end stage renal disease) N18.6 Anemia D64.9 Acute GI bleeding K92.2 DVT (deep venous thrombosis) I82.409
[2023-03-12 20:00] VITALS: BP 134/73; PULSE 75; RESP 18; TEMP 37.3; O2SAT 94
--- NOTE | 2023-03-12 21:12 | P.PN_ITS ---
Subjective Subjective: States she is not feeling the best today. Not bothered by any 1 specific symptom. Tired. Discussed with her anemia, some worsening hemoglobin today. Discussed positive Hemoccult. Discussed consideration of further options with regards to elevated risk of recurrent DVT, risk of PE, inability to resume anticoagulation. Later on discussed also with her daughter. Vitals/I&O/Wt Last Vital Signs Temp 99.1 F 03/12/23 20:00 Pulse 75 03/12/23 20:00 Resp 18 03/12/23 20:00 BP 134/73 03/12/23 20:00 Pulse Ox 94 03/12/23 20:00 O2 Del Method Room Air 03/12/23 11:30 03/12/23 03/12/23 03/12/23 06:59 14:59 22:59 Intake Total 240 / 240 240 / 480 Balance 240 / 240 240 / 480 Weight last 48 hrs Weight 56.245 kg Weight 59 kg Weight 52.39 kg Weight 60.5 kg Physical Exam Const: COMMON NORMALS: patient oriented x3 and alert GENERAL APPEARANCE: cooperative and frail appearing ORIENTATION/CONSCIOUSNESS: Yes awake HENMT: COMMON NORMALS: oropharynx normal Neck/C-Spine: COMMON NORMALS: no JVD Resp: COMMON NORMALS: normal respiratory effort and clear to auscultation bilaterally AUSCULTATION: clear to auscultation bilaterally Cardio: COMMON NORMALS: no JVD, regular rhythm, S1 normal heart sound present, S2 normal heart sound present and No murmurs present (Cardio) RHYTHM: regular rhythm HEART SOUNDS: S1 normal heart sound present and S2 normal heart sound present GI: COMMON NORMALS: Normal to inspection, nondistended, normoactive bowel sounds present, Soft to palpation and non-tender PALPATION: Yes Soft to palpation Extremity: COMMON NORMALS: no joint enlargement and no pedal edema Neuro: COMMON NORMALS: patient oriented x3 and moves all extremities SENSORIUM/ORIENTATION: Yes alert Skin: COMMON NORMALS: no rashes or lesions noted GENERAL SKIN EXAM: no rashes or lesions noted Data 03/12/23 04:40 03/12/23 04:40 Micro: Microbiology 03/11/23 23:45 Occult Blood (FIT) - Final Stool - Stool Aspirate A&P Assessment and plan (1) Anemia: Reviewed hemoglobin, noted down to 9.2. Platelets noted 163. Reviewed Hemoccult, Noted positive. Discussed with her and her daughter regarding options given DVT. Discussed continuation of PPI, sucralfate, she had just recently had endoscopy. Discussed follow-up with GI for additional assessment with capsule endoscopy. Follow-up CBC. Continue to hold anticoagulation. SCD for DVT prophylaxis. Previously on anticoagulation, at risk of severe/life-threatening bleed. (2) DVT (deep venous thrombosis): Discussed with her and her daughter regarding further options. She is at elevated risk of DVT, PE. Only toe-touch weightbearing on left lower extremity, recent acetabular fracture. Recent DVT. Discussed anemia as above. Cannot resume anticoagulation at this time. Discussed further options of not treating, but with elevated risk they would be worried about recurrence of DVT, PE, she is at elevated risk. Discussed consideration of IVC filter. Discussed with cardiology. IVC filter can be planned this coming Monday, if possible ideally during the same sedation episode as tunneled catheter but discussed with family this may be difficult to coordinate. I could not reach her daughter again tonight to discuss if we can try some subcutaneous heparin in the meantime until filter can be arranged. Daughter expressed did not feel it would be safe/good idea to try to a different facility at current time. Discussed risks associated with IVC filter. Recent nonocclusive DVT of left peroneal and posterior tibial veins. She was started on Eliquis at that time. Follow-up venous ultrasound shows no DVT on 02/19/2023. Cardiology note reviewed. (3) Decubitus ulcer of left lower back, stage 2: Present on admission. Continue with wound management. (4) ESRD (end stage renal disease): Discussed with nephrology, discussed with surgery. Noted occlusion of left AV graft. She missed dialysis on Monday. Unable to obtain tunneled catheter today, discussed consideration of temporary catheter, surgery placing temporary catheter to allow for dialysis. (5) Acute GI bleeding: Reviewed Hemoccult, noted positive. So far no melena in stool. We will request Hemoccult. Anticoagulation is on hold. Reassess blood counts. Patient was found to have moderate erosive gastritis on EGD approximately 02 20- . She has been on a PPI twice daily since that time. She continues to have stool positive for Hemoccult. Hemoglobin 6.6 on presentation (6) Hypertension: Hold Bumex, carvedilol. Monitor blood pressure. Qualifiers: Hypertension type: renovascular hypertension Qualified Code(s): I15.0 - Renovascular hypertension (7) Anxiety and depression: Plan Goals of care discussion: So far discussion with patient and family she would still like to continue pursuing medical treatment and interventions individually considered were appropriate. Long goals of care discussion with her and her daughter, for now on consideration of all options she still resigned to resuming dialysis even though has not been tolerating it very well. She and her daughter both understand to let us know at any time regarding possible transition to hospice and/or comfort measures. Diarrhea: C. difficile checked, noted negative. Prior acetabular fracture: Only toe-touch weightbearing on left lower extremity. Discussed with case management. Attestations Medical Necessity Statement*: Continue admission for assessment management of acute anemia, recent DVT, risk of recurrent DVT, PE. Diagnoses Anemia D64.9 DVT (deep venous thrombosis) I82.409 Decubitus ulcer of left lower back, stage 2 L89.142 ESRD (end stage renal disease) N18.6 Acute GI bleeding K92.2 Hypertension I15.0 Hypertension type: renovascular hypertension Anxiety and depression F41.9; F32.9
[2023-03-12 22:00] VITALS: PULSE 61
[2023-03-12] MEDS: ALPRAZolam 0.5 mg Tablet 0.25 MG PO (23:28)
[2023-03-13] VITALS (9 sets, daily range): BP systolic 132–172; BP diastolic 67–84; PULSE 60–84; RESP 15–19; TEMP 36.3–36.8; O2SAT 93–96
[2023-03-13] MEDS: pantoprazole 40 mg SDV IVP ×2 (00:34→13:25)
[2023-03-13 05:40] LABS: Basophils % 0.7 %; Eosinophils # 0.2 10^3/uL (0.0-0.8); Lymphocytes # 2.1 10^3/uL (0.8-4.8); Lymphocytes % 38.6 %; Mean Corpuscular HGB Conc 32.1 g/dL (30-55); Mean Corpuscular Hemoglobin 32.9 pg (27-33); Mean Corpuscular Volume 102.5 fl (85-98); Mean Platelet Volume 9.9 fL (7.4-10.4); Monocytes # 0.5 10^3/uL (0.2-0.9); Monocytes % 9.3 %; Neutrophils # 2.55 10^3/uL (1.8-7.7); Neutrophils % 46.9 %; Nucleated Red Blood Cells % 0 %; Platelet Count 168 10^3/cmm (157-399); Red Blood Count 2.83 10^6/uL (3.85-5.65); Red Cell Distribution Width 19.8 % (12.1-15.1); White Blood Count 5.46 10^3/uL (3.29-11.43)
[2023-03-13 05:57] LABS: Anion Gap 10.1 (5-19); Blood Urea Nitrogen 39 mg/dL (8-23); Calcium 7.9 mg/dL (8.5-10.5); Carbon Dioxide 27 mmol/L (22-29); Chloride 106 mmol/L (98-107); Glucose 81 mg/dL (65-115); Osmolality Calculated 296 mOsm/kg (285-295); Potassium 4.1 mmol/L (3.5-5.1); Sodium 139 mmol/L (136-145)
[2023-03-13] MEDS: citalopram 20 mg Tablet 10 MG PO (08:30)
[2023-03-13] MEDS: carvedilol 6.25 mg Tablet 3.125 MG PO ×2 (08:30→17:12)
--- NOTE | 2023-03-13 09:00 | P.PN_ITS ---
Subjective Subjective: no new complaints Vitals/I&O/Wt Last Vital Signs Temp 97.7 F 03/13/23 07:54 Pulse 65 03/13/23 07:54 Resp 15 03/13/23 07:54 BP 166/84 03/13/23 07:54 Pulse Ox 94 03/13/23 07:54 O2 Del Method Room Air 03/13/23 07:54 03/12/23 03/13/23 03/13/23 22:59 06:59 14:59 Intake Total 480 / 720 Balance 480 / 720 Weight last 48 hrs Weight 54.567 kg Weight 56.245 kg Weight 59 kg Physical Exam Const: COMMON NORMALS: no acute distress and alert Extremity: NARRATIVE EXTREMITY EXAM: no edema Neuro: SENSORIUM/ORIENTATION: Yes alert Data 03/13/23 05:22 03/13/23 05:22 Other data: seen via telemedicine with assistance of RN at bedside A&P Assessment and plan (1) ESRD (end stage renal disease): Plan 1. ESRD, clotted dialysis access, s/p placement Femoral dialysis catheter, HD Monday and Monday. Femoral catheter removed. Next HD Monday after PC place ment. 2. Anemia, heme + stool, s/p transfusion 1u PRBC 3. Poor nutrition Rec: Tunneled HD catheter placement prior to next HD Monday. check phos, add calorie and protein supplements Attestations Medical Necessity Statement*: see above Time Spent in Patient Care: 16 - 35 minutes Coding Level of Care Code Acute Code for Chg Fwd Diagnoses ESRD (end stage renal disease) N18.6
--- NOTE | 2023-03-13 10:11 | PC.SOCIAL ---
IMM update IMM updated with patient. Verbalized an understanding. Copy Pg 2 provided. Initialled, dated, timed, and placed in chart.
[2023-03-13] MEDS: HYDROcodone-acetaminophen 10-325 mg Tablet 1 TAB PO ×3 (10:30→21:46)
[2023-03-13 12:18] LABS: Phosphorus 2.6 mg/dL (2.5-4.5)
--- NOTE | 2023-03-13 12:28 | PM.PN ---
Subjective Subjective: Patient is agreeable for IVC filter placement and dialysis catheter placement, she will be n.p.o. after midnight No active complaints She is full code Vitals/I&O/Wt Last Vital Signs Temp 98.2 F 03/13/23 12:00 Pulse 84 03/13/23 12:00 Resp 16 03/13/23 12:00 BP 172/84 03/13/23 12:00 Pulse Ox 96 03/13/23 12:00 O2 Del Method Room Air 03/13/23 12:00 03/12/23 03/13/23 03/13/23 22:59 06:59 14:59 Intake Total 480 / 720 720 / 720 Balance 480 / 720 720 / 720 Weight last 48 hrs Weight 54.567 kg Weight 56.245 kg Weight 59 kg Physical Exam Narrative: Awake and alert GCS 15 Currently on room air Pleasant and cooperative S1, S2 Abdomen soft Data 03/13/23 05:22 03/13/23 05:22 A&P Assessment and plan (1) Anemia: (2) ESRD (end stage renal disease): (3) Acute GI bleeding: (4) Hypertension: Qualifiers: Hypertension type: renovascular hypertension Qualified Code(s): I15.0 - Renovascular hypertension (5) Decubitus ulcer of left lower back, stage 2: (6) Anxiety and depression: (7) DVT (deep venous thrombosis): (8) Chronic kidney disease: (9) Leg wound, left: Plan Patient is going for dialysis catheter placement and possibly IVC after placement during same anesthesia on Monday. Stressed with cardiology Hemoglobin stable, not a good candidate to be on Eliquis, going for IVC filter placement Patient is also going for tunneled catheter dialysis placement, she gets dialyzed Monday, Patient is a resident of [facility] she will return once her procedures are finished Diarrhea: C. difficile negative Patient remains full code, she will be n.p.o. after midnight DVT prophylaxis on hold Attestations Medical Necessity Statement*: Continue medical management Diagnoses Anemia D64.9 ESRD (end stage renal disease) N18.6 Acute GI bleeding K92.2 Hypertension I15.0 Hypertension type: renovascular hypertension Decubitus ulcer of left lower back, stage 2 L89.142 Anxiety and depression F41.9; F32.9 DVT (deep venous thrombosis) I82.409 Chronic kidney disease N18.9 Leg wound, left S81.802A
[2023-03-13] MEDS: ciprofloxacin 500 mg Tablet 250 MG PO (13:25)
[2023-03-13] MEDS: ALPRAZolam 0.5 mg Tablet PO (17:12)
[2023-03-14] VITALS (19 sets, daily range): BP systolic 159–219; BP diastolic 76–128; PULSE 61–101; RESP 14–22; TEMP 36.2–37.1; O2SAT 92–98
[2023-03-14] MEDS: pantoprazole 40 mg SDV IVP (02:15)
[2023-03-14 05:05] LABS: Basophils % 0.6 %; Eosinophils # 0.3 10^3/uL (0.0-0.8); Eosinophils % 4.2 %; Hematocrit 28.7 % (36-47); Lymphocytes # 1.9 10^3/uL (0.8-4.8); Mean Corpuscular HGB Conc 32.8 g/dL (30-55); Mean Corpuscular Hemoglobin 33.6 pg (27-33); Mean Corpuscular Volume 102.5 fl (85-98); Mean Platelet Volume 9.8 fL (7.4-10.4); Monocytes # 0.5 10^3/uL (0.2-0.9); Monocytes % 7.7 %; Neutrophils # 3.61 10^3/uL (1.8-7.7); Neutrophils % 56.9 %; Nucleated Red Blood Cells % 0 %; Platelet Count 179 10^3/cmm (157-399); Red Cell Distribution Width 19.4 % (12.1-15.1); White Blood Count 6.36 10^3/uL (3.29-11.43)
[2023-03-14] MEDS: sodium chloride 0.9% 1,000 ML 50 ML IV (05:29)
[2023-03-14 05:32] LABS: Blood Urea Nitrogen 51 mg/dL (8-23); Calcium 8.1 mg/dL (8.5-10.5); Carbon Dioxide 27 mmol/L (22-29); Chloride 106 mmol/L (98-107); Glucose 81 mg/dL (65-115); Osmolality Calculated 301 mOsm/kg (285-295); Sodium 139 mmol/L (136-145)
--- NOTE | 2023-03-14 10:27 | PM.PN ---
Subjective Subjective: Initial plan was for IVC filter placement. However on review of prior venous Dopplers, last Doppler did not show DVT. She is stable otherwise. Vitals/I&O/Wt Last Vital Signs Temp 97.5 F L 03/14/23 07:54 Pulse 75 03/14/23 07:54 Resp 16 03/14/23 07:54 BP 171/79 03/14/23 07:54 Pulse Ox 95 03/14/23 07:54 O2 Del Method Room Air 03/14/23 07:54 03/13/23 03/14/23 03/14/23 22:59 06:59 14:59 Intake Total 720 / 1440 Balance 720 / 1440 Weight last 48 hrs Weight 120 lb Weight 120 lb 4.8 oz Physical Exam Narrative: GENERAL: Patient is alert, awake and oriented x3. [] NECK: No jugular vein distension. [] HEENT: No cyanosis. No icterus. No pallor. [] HEART: Regular S1 and S2. No murmur, rub or gallop. [] LUNGS: Clear to auscultate bilaterally. [] CENTRAL NERVOUS SYSTEM: Grossly nonfocal. [] EXTREMITIES: Lower extremities with no edema Data 03/15/23 05:32 03/15/23 05:32 A&P Assessment and plan (1) ESRD (end stage renal disease): (2) Anemia: (3) Acute GI bleeding: (4) DVT (deep venous thrombosis): Patient DVT was seen on venous Doppler in January. Repeat study in February did not reveal it. We will repeat another Doppler and if there is no evident DVT, we will hold off on IVC filter placement at this time. Discussed with family who are in agreement with the plan. Attestations Medical Necessity Statement*: Care expected to cross 2 midnights. Coding Level of Care Code Acute Code for Chg Fwd Diagnoses ESRD (end stage renal disease) N18.6 Anemia D64.9 Acute GI bleeding K92.2 DVT (deep venous thrombosis) I82.409
[2023-03-14] MEDS: aspirin 325 mg Tablet PO (10:33)
[2023-03-14] MEDS: diphenhydrAMINE 50 mg Capsule PO (10:33)
[2023-03-14] MEDS: citalopram 20 mg Tablet 10 MG PO (10:34)
[2023-03-14] MEDS: carvedilol 6.25 mg Tablet 3.125 MG PO ×2 (10:34→15:53)
--- NOTE | 2023-03-14 10:38 | USCV_ITS ---
Milla Thomas Age: 87 Gender: F : 1935 Exam Date: 03/14/2023 11:04 Ordering Phys: Marycarmen Mcrae MD Technologist: Juan Carlos Tellez Exam Location: [facility] [place] Indication: BILAT EDEMA PROCEDURES: The venous duplex Doppler examination of both lower extremities was performed in the standard fashion. The following venous structures were evaluated: common femoral vein, profunda vein, proximal portion of the greater saphenous vein, superficial femoral vein, and the popliteal vein. In addition, the posterior tibial and peroneal trunk were evaluated. FINDINGS: Normal 2-D Doppler and augmentation and compressibility throughout the lower extremity venous structures. Additional imaging through the proximal calf veins also reveals no thrombus. Limited evaluation of the greater saphenous vein is patent with no thrombus. CONCLUSIONS No evidence of right lower extremity DVT. No evidence of left lower extremity DVT. Herve Dwyer MD (Electronically Signed) Final Date: 14 March 2023 12:52 S
--- NOTE | 2023-03-14 11:18 | P.PN_ITS ---
Vitals/I&O/Wt Last Vital Signs Temp 98.3 F 03/14/23 10:39 Pulse 73 03/14/23 10:39 Resp 16 03/14/23 10:39 BP 178/78 03/14/23 10:39 Pulse Ox 94 03/14/23 10:39 O2 Del Method Room Air 03/14/23 10:39 03/13/23 03/14/23 03/14/23 22:59 06:59 14:59 Intake Total 720 / 1440 Balance 720 / 1440 Weight last 48 hrs Weight 120 lb Weight 120 lb 4.8 oz Data 03/14/23 04:17 03/14/23 04:17 A&P Assessment and plan (1) ESRD (end stage renal disease): Plan Permacath placement The risks and benefits of the procedure, including but not limited to, bleeding, infection, infection requiring Mediport removal antibiotic therapy and repeat surgery, damage to surrounding structures, scar, numbness, pain, pneumothorax requiring thoracostomy tube, were explained to the patient. He/She is unde rstanding of the risks and wishes to proceed. Attestations Medical Necessity Statement*: Per primary Coding Level of Care Code Acute Code for Chg Fwd Diagnoses ESRD (end stage renal disease) N18.6
--- NOTE | 2023-03-14 11:46 | PM.PN ---
Subjective Subjective: denies nay complaints Medications: Reviewed: Yes Vitals/I&O/Wt Last Vital Signs Temp 98.3 F 03/14/23 10:39 Pulse 73 03/14/23 10:39 Resp 16 03/14/23 10:39 BP 178/78 03/14/23 10:39 Pulse Ox 94 03/14/23 10:39 O2 Del Method Room Air 03/14/23 10:39 03/13/23 03/14/23 03/14/23 22:59 06:59 14:59 Intake Total 720 / 1440 Balance 720 / 1440 Weight last 48 hrs Weight 54.431 kg Weight 54.567 kg Physical Exam Const: COMMON NORMALS: no acute distress and alert Extremity: NARRATIVE EXTREMITY EXAM: no edema Neuro: SENSORIUM/ORIENTATION: Yes alert Data 03/14/23 04:17 03/14/23 04:17 A&P Assessment and plan (1) ESRD (end stage renal disease): Plan 1. ESRD, clotted dialysis access, s/p placement Femoral dialysis catheter, HD Monday and Monday. Femoral catheter removed. Next HD Monday after PC placement. 2. Anemia, heme + stool, s/p transfusion 1u PRBC 3. Poor nutrition Rec: Tunneled HD catheter placement today and HD after. check phos, add calorie and protein supplements Attestations Medical Necessity Statement*: per mediicne team Coding Level of Care Code Acute Code for Chg Fwd Diagnoses ESRD (end stage renal disease) N18.6
--- NOTE | 2023-03-14 12:40 | SC_ITS ---
WS: [id number] C-arm fluoroscopy insertion of right dialysis catheter, 03/14/2023 Clinical Data: SURGERY Comparison: None. Findings: Dr. Gentile inserted a right dialysis catheter into the right internal jugular vein ending in the gibson perior vena caval and the cavoatrial junction. Impression: Insertion right dialysis catheter.
--- NOTE | 2023-03-14 12:44 | ANES.PREANE2 ---
Pre-Anesthetic Assessment Height/Weight: Height 1.65 m Weight 54.431 kg Temp Pulse Resp BP Pulse Ox O2 Del Method 98.8 F 75 16 180/90 95 Room Air 03/14/23 12:40 03/14/23 12:40 03/14/23 12:40 03/14/23 12:40 03/14/23 12:40 03/14/23 12:40 Operation Date: 03/14/23 13:10 Proposed Procedures p Dialysis Catheter Insertion(Not Applicable) - Hugh Gentile DO Familial anesthetic complications: None Was Beta Mitra taken within 24 hours: N/A Was Clonidine taken within 24 hours: N/A Last intake: Intake Last Liquid Date 03/13/23 Last Solid Date 03/13/23 Social No alcohol and No tobacco Exam alert, oriented x 3, clear to auscultation bilaterally and regular rate & rhythm Airway Mallampati: Class I Dentition: chipped CV/HEM Anemia, Congestive Heart Failure, Deep Vein Thrombosis and Hypertension Chronic Renal Failure GI gi bleed Musc/skel Fibromyalgia Anesthetic Plan ASA status: 4 Anesthesia: MAC Risk of > 500 ml blood loss (7ml/kg in children): No Medications/Allergies Home Medications Medication Instructions Recorded Confirmed Last Taken Type acetaminophen 325 mg tablet 650 mg PO Q4H PRN Pain 11/13/19 03/10/23 03/29/21 History (Tylenol) citalopram 10 mg tablet (Celexa) 10 mg PO DAILY 11/13/19 03/10/23 02/18/23 History ipratropium 0.5 mg-albuterol 3 mg 3 ml inhalation Q4H PRN Shortness 11/13/19 03/10/23 Unknown History (2.5 mg base)/3 mL nebulization Of Breath soln vitamin B comp no.3-folic acid 1 1 tab PO DAILY 02/25/20 03/10/23 02/18/23 History mg-vit C 60 mg-biotin 300 mcg tablet ([facility]) tamsulosin 0.4 mg capsule (Flomax) 0.4 mg PO BEDTIME 09/08/20 03/10/23 02/17/23 History calcium acetate(phosphat bind) 667 667 mg PO TID 03/29/21 03/10/23 02/18/23 History mg tablet bisacodyl 10 mg rectal suppository [address] DAILY PRN constipation 10/10/21 03/10/23 Unknown History cholecalciferol (vitamin D3) 25 25 mcg PO DAILY 10/10/21 03/10/23 02/18/23 History mcg (1,000 unit) capsule (Vitamin D3) elastic bandage 10/10/21 03/10/23 Unknown History elastic bandage 3 10/10/21 03/10/23 Unknown History lidocaine-prilocaine 2.5 %-2.5 % 1 applic topical .COMPLEX 10/10/21 03/10/23 Unknown History topical cream ondansetron HCl 8 mg tablet 8 mg PO TID PRN nausea and vomiting 10/10/21 03/10/23 02/01/23 History promethazine 12.5 mg rectal 12.[address] Q8H PRN nausea and 10/10/21 03/10/23 Unknown History suppository vomiting simethicone 80 mg chewable tablet 80 mg PO DAILY PRN abdominal 10/10/21 03/10/23 Unknown History (Gas Relief (simethicone)) distention sodium phosphates 19 gram-[address] DAILY PRN constipation 10/10/21 03/10/23 Unknown History gram/118 mL enema (Fleet Enema) alprazolam 0.25 mg tablet 0.25 mg PO BID PRN Anxiety 30 days 07/07/22 03/10/23 02/17/23 Rx #60 tabs bumetanide 1 mg tablet 1 mg PO .COMPLEX 01/18/23 03/10/23 02/18/23 History oxycodone myristate 18 mg capsule 18 mg PO BID 01/19/23 03/10/23 02/18/23 History sprinkle extended release 12hr(DON'T CRUSH) (Xtampza ER) polyethylene glycol 3350 17 17 g PO DAILY PRN Constipation 01/19/23 03/10/23 Unknown History gram/dose oral powder promethazine 25 mg tablet 25 mg PO BID PRN Nausea And 01/19/23 03/10/23 Unknown History Vomiting sevelamer carbonate 800 mg tablet 800 mg PO TID 01/19/23 03/10/23 02/18/23 History simethicone 125 mg capsule See Rx Instructions .Route .COMPLEX 01/19/23 03/10/23 Unknown History diphenoxylate-atropine 2.5 1 tab PO QID PRN Diarrhea 02/01/23 03/10/23 02/18/23 History mg-0.025 mg tablet (Lomotil) hydrocodone 10 mg-acetaminophen 1 tab PO Q4H PRN Pain 02/01/23 03/10/23 02/18/23 History 325 mg tablet loperamide 2 mg tablet 2 mg PO Q8H PRN Diarrhea 02/01/23 03/10/23 Unknown History naloxone 0.4 mg/mL injection See Rx Instructions .Route .COMPLEX 02/01/23 03/10/23 Unknown History solution witch maia 50 % topical pads 1 pad topical BID PRN Hemorrhoids 02/01/23 03/10/23 Unknown History (Hemorrhoidal (witch maia)) lactulose 10 gram/15 mL oral 30 ml PO BID 02/18/23 03/10/23 02/15/23 History solution (Constulose) apixaban 5 mg tablet (Eliquis) 2.5 mg PO DAILY #120 tabs 02/24/23 03/10/23 02/18/23 Rx carvedilol 6.25 mg tablet 3.125 mg PO SuTuThSa@0900,2100 #90 02/24/23 03/10/23 Unknown Rx tabs pantoprazole 40 mg tablet,delayed 40 mg PO BID 6 weeks #84 tabs 02/24/23 03/10/23 Unknown Rx release sucralfate 100 mg/mL oral 1 g (10 mL) PO AC&BEDTIME 4 weeks 02/24/23 03/10/23 Unknown Rx suspension #1,000 mL alprazolam 0.5 mg tablet 0.5 mg PO DAILY@1800 03/10/23 03/10/23 Unknown History Allergies Allergy/AdvReac Type Severity Reaction Status Date / Time amitriptyline [From Elavil] Allergy Unknown Unknown Verified 03/01/23 12:22 cyclobenzaprine Allergy Unknown Unknown Verified 03/01/23 12:22 [From Flexeril] Penicillins Allergy Unknown Unknown Verified 03/01/23 12:22 pentazocine [From Talwin] Allergy Unknown Unknown Verified 03/01/23 12:22 pregabalin [From Lyrica] Allergy Unknown Unknown Verified 03/01/23 12:22 tizanidine Allergy Unknown Unknown Verified 03/01/23 12:22 doxycycline Allergy Unknown Verified 03/01/23 12:22 morphine Allergy Unknown Verified 03/01/23 12:22 naloxone Allergy Unknown Verified 03/01/23 12:22 Sulfa (Sulfonamide Allergy Unknown Verified 03/01/23 12:22 Antibiotics) sulfamethoxazole AdvReac kidney Verified 03/01/23 12:22 [From Bactrim] trimethoprim [From Bactrim] AdvReac kidney Verified 03/01/23 12:22 Current Medications Generic Name Dose Route Start Last Admin Trade Name Freq PRN Reason Stop Dose Admin Acetaminophen 650 mg 03/10/23 01:21 03/11/23 16:33 Acetaminophen 325 Mg Tablet PO 650 mg Q6H PRN Administration MILD PAIN Hydrocodone Bitart/Acetaminophen 1 tab 03/10/23 01:18 03/13/23 21:46 Hydrocodone-Acetaminophen 10-325 Mg Tablet PO 1 tab Q4H PRN Administration Pain Alprazolam 0.5 mg 03/11/23 18:00 03/13/23 17:12 Alprazolam 0.5 Mg Tablet PO 0.5 mg 1800 CONNOR Administration Alprazolam 0.25 mg 03/11/23 00:07 03/12/23 23:28 Alprazolam 0.5 Mg Tablet PO 0.25 mg BID PRN Administration ANXIETY Carvedilol 3.125 mg 03/10/23 09:00 03/14/23 10:34 Carvedilol 6.25 Mg Tablet PO 3.125 mg BID CONNOR Administration Ciprofloxacin HCl 250 mg 03/10/23 14:00 03/13/23 13:25 Ciprofloxacin 500 Mg Tablet PO 250 mg DAILY@1400 CONNOR Administration Protocol Citalopram Hydrobromide 10 mg 03/10/23 09:00 03/14/23 10:34 Citalopram 20 Mg Tablet PO 10 mg DAILY CONNOR Administration Docusate Sodium 100 mg 03/10/23 09:00 03/10/23 08:59 Docusate Sodium 10 Mg/Ml (5ml) Liq PO 100 mg BID CONNOR Administration Non-Formulary Medication 18 mg 03/10/23 09:00 03/14/23 10:34 Oxycodone Myristate [Xtampza Er] PO Not Given BID CONNOR Pantoprazole Sodium 40 mg 03/10/23 01:21 03/14/23 02:15 Pantoprazole 40 Mg Sdv IVP 40 mg Q12H CONNOR Administration PFSH Anesthesia Medical History Acetabulum fracture, left Anemia of chronic disease Anxiety and depression Chronic diarrhea DDD (degenerative disc disease) Decubitus ulcer of buttock Decubitus ulcer, buttock, right, unstageable Diastolic CHF ESRD (end stage renal disease) ESRD (end stage renal disease) on dialysis Fall Fibromyalgia GERD (gastroesophageal reflux disease) History of breast cancer Previously followed by Dr. Santoyo History of pulmonary embolus (PE) 08/2016 History of stroke 11/14/16 Hyperlipidemia Hypertension Hypoxemic respiratory failure, chronic Incomplete bladder emptying Internal and external bleeding hemorrhoids Lives in assisted living facility Low BP Lumbar spinal stenosis Non-STEMI (non-ST elevated myocardial infarction) Osteoarthritis Paroxysmal A-fib Peritoneal dialysis catheter in place Recurrent UTI Restrictive lung disease Urinary retention Urinary tract infection UTI (urinary tract infection) Surgical History History of back surgery History of esophagogastroduodenoscopy (EGD) 08/03/17 mild gastritis and duodenitis History of hemiarthroplasty of left hip 11/18/18: Dr. Mendoza History of hysterectomy History of lumpectomy of left breast History of right cataract surgery Family History Other Cancer Denies family history of Anesthesia complication Bleeding disorder Social History Second hand smoke exposure: No Alcohol intake: never Substance/Drug Use: never Adopted: No Caregiver/support person: Yes Lives independently: Yes Housing: Assisted Living Facility Marital status: Marital status details: with dementia Additional social history: FULL CODE DISCUSSED WITH PATIENT ON 02/04/20 Data Anesthesia 03/14/23 04:17 03/14/23 04:17 Short CBC 03/13/23 03/14/23 Range/Units 05:22 04:17 WBC 5.46 6.36 (3.29-11.43) 10^3/uL Hgb 9.30 L 9.40 L (11.27-16.99) g/dL Hct 29.0 L 28.7 L (36-47) % MCV 102.5 H 102.5 H (85-98) fl Plt Count 168 179 (157-399) 10^3/cmm Neut % (Auto) 46.9 56.9 % Neut # (Auto) 2.55 3.61 (1.8-7.7) 10^3/uL BMP 03/13/23 03/14/23 05:22 04:17 Sodium 139 139 Potassium 4.1 4.0 Chloride 106 106 Carbon Dioxide 27 27 BUN 39 H 51 H Creatinine 4.1 H 4.3 H Glucose 81 81 Calcium 7.9 L 8.1 L Cardiac Studies: Echocardiogram 02/02/23 Sestamibi Stress Test (Cardiology) 02/05/23
[2023-03-14] MEDS: sodium chloride 0.9% 1,000 ML 30 ML IV (12:55)
--- NOTE | 2023-03-14 13:01 | PM.PN ---
Subjective Subjective: Recent venous Doppler not showing DVT, Dr. Lucero wanted another venous Doppler study to make a final decision regarding TIPS procedure Patient will go for tunneled dialysis catheter placement Son is at bedside All questions were answered Vitals/I&O/Wt Last Vital Signs Temp 98.8 F 03/14/23 12:40 Pulse 75 03/14/23 12:40 Resp 16 03/14/23 12:40 BP 180/90 03/14/23 12:40 Pulse Ox 95 03/14/23 12:40 O2 Del Method Room Air 03/14/23 12:40 03/13/23 03/14/23 03/14/23 22:59 06:59 14:59 Intake Total 720 / 1440 Balance 720 / 1440 Weight last 48 hrs Weight 54.431 kg Weight 54.567 kg Physical Exam Narrative: Extremity bruises healing Good relation tissue No active signs of bleeding Awake and alert Euvolemic Patient is lethargic and fatigued Awake and alert Nonfocal neuro exam Data 03/14/23 04:17 03/14/23 04:17 A&P Assessment and plan (1) ESRD (end stage renal disease): (2) Anemia: (3) Hypertension: Qualifiers: Hypertension type: renovascular hypertension Qualified Code(s): I15.0 - Renovascular hypertension (4) Decubitus ulcer of left lower back, stage 2: (5) Anxiety and depression: (6) DVT (deep venous thrombosis): (7) Leg wound, left: (8) Swelling of both lower extremities: (9) S/P hemodialysis catheter insertion: Plan End-stage renal disease: Monday, tunneled dialysis catheter placement by Dr. Gentile today Chronic anemia: Stable Lower extremity wound seems to be healing well DVT: Patient has history of DVT for which she was taking anticoagulating agent with recent GI bleed there was concern for worsening of DVT hence IVC filter indication was being considered Dr. Lucero wanted to to see if patient still has DVT hence another venous Doppler was requested but did not show active thrombus in lower extremities, there is no plan to put IVC filter as of now Renal diet She might be able to go back to half-way by tomorrow if there is no plan for IVC filter placement Attestations Medical Necessity Statement*: Discharge tomorrow Coding Level of Care Code Acute Code for Chg Fwd Diagnoses ESRD (end stage renal disease) N18.6 Anemia D64.9 Hypertension I15.0 Hypertension type: renovascular hypertension Decubitus ulcer of left lower back, stage 2 L89.142 Anxiety and depression F41.9; F32.9 DVT (deep venous thrombosis) I82.409 Leg wound, left S81.802A Swelling of both lower extremities M79.89 S/P hemodialysis catheter insertion Z99.2
[2023-03-14] MEDS: levofloxacin-dextrose 5 % 500 MG/100 ML PREMIX 100 MG IV (13:06)
[2023-03-14] MEDS: heparin, porcine 1,000 unit/mL INJ 10 mL 10000 UNIT IRRIGATION (13:30)
[2023-03-14] MEDS: lidocaine-epi 2% 20 mL INJ INJECTION (13:31)
--- NOTE | 2023-03-14 13:50 | XRR_ITS ---
PROCEDURE INFORMATION: Exam: XR Chest Exam date and time: 03/14/2023 2:28 PM Age: 87 years old Clinical indication: Device placement; Other: Permacath placement; Prior surgery; Surgery date: Post-operative (0-2 days); Additional info: Postop permacath placement TECHNIQUE: Imaging protocol: Radiologic exam of the chest. Views: 1 view. COMPARISON: CR (CHEST, ) 03/09/2023 10:41 PM FINDINGS: Tubes, catheters and devices: A large dual lumen right internal jugular central venous catheter is appropriately positioned. The distal tip is in the upper right atrium. Lungs: There is no consolidation. Pleural spaces: The right lateral costophrenic sulcus is blunted. The left lateral costophrenic sulcus is blunted. No pneumothorax. Heart/Mediastinum: Cardiomediastinal contours are unremarkable. Bones/joints: Bones are unremarkable. XR/XR chest 1V portable [id number] IMPRESSION: 1. Satisfactory right central line position. No pneumothorax. 2. Blunting of the lateral costophrenic sulci may represent small pleural effusions.
--- NOTE | 2023-03-14 13:54 | P.OP_ITS ---
Operative Report Date of procedure: March 14, 2023 Pre-op diagnosis: End-stage renal disease Post-op diagnosis: same Procedure done: Permacath placement Implants: Permacath Surgeon: Hugh Gentile DO Anesthesia: MAC Estimated blood loss (mL): 10 Complications: None apparent Brief History: This very pleasant 87-year-old female that had chronic kidney disease. She developed acute kidney injury on top of this and nephrology requested tunneled dialysis catheter. There were some benefits were explained and documented. Procedure: Patient was taken to the operating room and placed supine on the operating room table. All bony prominences were padded. He was given IV sedation and monitored throughout the case by the anesthesia personnel. SCDs were placed and turned on. The arms were tucked to the side. Patient received Vancomycin preoperatively IV. The bilateral chest wall was prepped and draped in usual sterile fashion using chlorhexidine base prep. Sterile drapes were applied. We did procedure pause prior to beginning. An 18 gauge needle was placed in the right internal jugular vein under ultrasoun d guidance. Dark, nonpulsatile blood was aspirated. A guidewire was placed through the needle centrally toward the atrial/vena caval junction. Fluoroscopy visualized good placement. The needle was removed and the guidewire was clipped to the drape with a hemostat. Further local anesthetic was infiltrated in the soft tissues of the right chest wall and a #15 blade was used to make a vertical skin incision. A #15 blade was used to make a small skin freeman around the guidewire insertion area. The permacath tubing was tunneled through the subcutaneous tissues up to the needle insertion location. Serial dilators were used to serially dilate over the guidewire . A dilator with a peel-away sheath was placed over the guidewire and placed centrally. The guidewire was removed as well as the dilator and the permacath was fed into the split sheath. The split sheath was removed. Both ports were aspirated to reveal dark blood and were flushed with saline only as the patient has a heparin allergy. final fluoroscopy visualization showed no kink in the catheter and the tip of the permacath tubing near the atrial/vena caval junction. Both skin incisions were thoroughly irrigated and suctioned dry. Meticulous hemostasis noted. The internal jugular access site was closed with 4-0 Vicryl in a subcuticular fashion. The skin overlying the permacath was closed in a similar manner. The permacath was then sutured into place using 2-0 nylon in a simple interrupted fashion. skin glue was applied as a topical dressing. This was allowed to dry. Patient was awakened from anesthesia and transferred via her cart to the recovery room in stable condition. All needle, sponge, and instrument counts were correct per the operating personnel x2 counts.
--- NOTE | 2023-03-14 14:35 | ANE.PACU2 ---
Inpatient post-anesthesia follow up: Airway intact: Yes Vital signs: Temperature 97.8 F Pulse Rate 79 Respiratory Rate 18 Blood Pressure 166/83 Pulse Oximetry 94 Oxygen Delivery Me thod Nasal Cannula Oxygen Flow Rate 2 Fraction of Inspir ed Oxygen Hydration adequate: Yes Nausea and vomiting: No Pain level: 1 Mental status: Baseline
--- NOTE | 2023-03-14 14:57 | PC.NURSE ---
1438 - Dermabond placed to right chest wall dialysis insertion site
[2023-03-14] MEDS: HYDROcodone-acetaminophen 10-325 mg Tablet 1 TAB PO ×2 (15:53→22:02)
[2023-03-14] MEDS: ALPRAZolam 0.5 mg Tablet PO (15:54)
[2023-03-14] MEDS: heparin, porcine 1,000 unit/mL INJ 10 mL 1000 UNIT HE (17:34)
--- NOTE | 2023-03-14 18:09 | PC.NURSE ---
At 1630 pt appears distressed and wheezing. Not received dialysis yet. BP 200/130, P 107, audible wheezes. Notified Dr. Mcrae. Hydralazine ordered IVP. 1700 pt taken for dialysis. 1730 pt BP 139/96. Notified Dr. Mcrae of updated BP, Hydralazine canceled.
[2023-03-15] VITALS (9 sets, daily range): BP systolic 131–180; BP diastolic 68–83; PULSE 69–89; RESP 15–18; TEMP 36.6–36.9; O2SAT 94–98
[2023-03-15] MEDS: pantoprazole 40 mg SDV IVP (01:12)
[2023-03-15] MEDS: HYDROcodone-acetaminophen 10-325 mg Tablet 1 TAB PO ×4 (04:24→23:35)
[2023-03-15 06:06] LABS: Basophils # 0.1 10^3/uL (0.0-0.1); Basophils % 0.7 %; Eosinophils # 0.5 10^3/uL (0.0-0.8); Eosinophils % 6.5 %; Lymphocytes # 1.5 10^3/uL (0.8-4.8); Lymphocytes % 18.9 %; Mean Corpuscular HGB Conc 31.6 g/dL (30-55); Mean Corpuscular Hemoglobin 33.2 pg (27-33); Mean Corpuscular Volume 105.1 fl (85-98); Monocytes # 0.6 10^3/uL (0.2-0.9); Monocytes % 7.3 %; Neutrophils # 5.09 10^3/uL (1.8-7.7); Neutrophils % 66.2 %; Nucleated Red Blood Cells % 0 %; Platelet Count 174 10^3/cmm (157-399); Red Blood Count 2.95 10^6/uL (3.85-5.65); Red Cell Distribution Width 19.3 % (12.1-15.1); White Blood Count 7.68 10^3/uL (3.29-11.43)
[2023-03-15 06:24] LABS: Phosphorus 2.5 mg/dL (2.5-4.5)
[2023-03-15 06:27] LABS: Blood Urea Nitrogen 30 mg/dL (8-23); Calcium 8.1 mg/dL (8.5-10.5); Carbon Dioxide 26 mmol/L (22-29); Chloride 107 mmol/L (98-107); Glucose 91 mg/dL (65-115); Osmolality Calculated 296 mOsm/kg (285-295); Sodium 140 mmol/L (136-145)
[2023-03-15 06:35] LABS: Anion Gap 11.2 (5-19); Potassium 4.2 mmol/L (3.5-5.1)
--- NOTE | 2023-03-15 08:00 | PM.PN ---
Subjective Subjective: Patient is stable. Repeat ultrasound does not show DVT. No plan for IVC filter implantation. Vitals/I&O/Wt Last Vital Signs Temp 98.1 F 03/15/23 04:00 Pulse 71 03/15/23 05:55 Resp 17 03/15/23 04:00 BP 166/71 03/15/23 06:33 Pulse Ox 94 03/15/23 04:00 O2 Del Method Nasal Cannula 03/15/23 04:00 O2 Flow Rate 2 03/14/23 20:50 03/14/23 03/15/23 03/15/23 22:59 06:59 14:59 Intake Total 740 / 890 250 / 1140 Output Total 1316 / 1321 Balance -576 / -431 250 / -181 Weight last 48 hrs Weight 120 lb 4 oz Weight 121 lb 11.123 oz Weight 120 lb Physical Exam Narrative: GENERAL: Patient is alert, awake and oriented x3. [] NECK: No jugular vein distension. [] HEENT: No cyanosis. No icterus. No pallor. [] HEART: Regular S1 and S2. No murmur, rub or gallop. [] LUNGS: Clear to auscultate bilaterally. [] CENTRAL NERVOUS SYSTEM: Grossly nonfocal. [] EXTREMITIES: Lower extremities with no edema Data 03/16/23 07:00 03/15/23 05:32 A&P Assessment and plan (1) ESRD (end stage renal disease): (2) Anemia: (3) Acute GI bleeding: (4) DVT (deep venous thrombosis): Repeat Doppler did not show DVT. No plan for IVC filter Thank you for involving us with care of this patient. Please call with questions. Attestations Medical Necessity Statement*: Care expected to cross 2 midnights. Coding Level of Care Code Acute Code for g Fwd Diagnoses ESRD (end stage renal disease) N18.6 Anemia D64.9 Acute GI bleeding K92.2 DVT (deep venous thrombosis) I82.409
[2023-03-15] MEDS: citalopram 20 mg Tablet 10 MG PO (08:06)
[2023-03-15] MEDS: carvedilol 6.25 mg Tablet 3.125 MG PO ×2 (08:06→17:49)
[2023-03-15] MEDS: ALPRAZolam 0.5 mg Tablet 0.25 MG PO ×2 (08:06→23:35)
--- NOTE | 2023-03-15 09:54 | PM.PN ---
Subjective Subjective: s/p hD yesterday Medications: Reviewed: Yes Vitals/I&O/Wt Last Vital Signs Temp 97.8 F 03/15/23 08:00 Pulse 79 03/15/23 08:00 Resp 18 03/15/23 08:00 BP 166/83 03/15/23 08:00 Pulse Ox 94 03/15/23 08:00 O2 Del Method Nasal Cannula 03/15/23 04:00 O2 Flow Rate 2 03/14/23 20:50 03/14/23 03/15/23 03/15/23 22:59 06:59 14:59 Intake Total 740 / 890 250 / 1140 Output Total 1316 / 1321 Balance -576 / -431 250 / -181 Weight last 48 hrs Weight 54.544 kg Weight 55.2 kg Weight 54.431 kg Physical Exam Const: COMMON NORMALS: no acute distress and alert Extremity: NARRATIVE EXTREMITY EXAM: no edema Neuro: SENSORIUM/ORIENTATION: Yes alert Data 03/15/23 05:32 03/15/23 05:32 A&P Assessment and plan (1) ESRD (end stage renal disease): Plan 1. ESRD, clotted dialysis access, s/p placement Femoral dialysis catheter, HD Monday and Monday. Femoral catheter removed. - s/p PC placement yesterday and HD done,plan for TTS schedule while in here 2. Anemia, heme + stool, s/p transfusion 1u PRBC, hb 9.8 3. Poor nutrition Rec: Tunneled HD catheter placement yesterday,. check phos, add calorie and protein supplements Attestations Medical Necessity Statement*: per mediicne team Coding Level of Care Code Acute Code for Chg Fwd Diagnoses ESRD (end stage renal disease) N18.6
--- NOTE | 2023-03-15 11:04 | PM.MISC ---
Miscellaneous Note Purpose of Documentation: This will be considered progress note from 03/15 Note: We had to discontinue her discharge orders because she was bleeding around dialysis tunneled catheter site Her bleeding was stopped with pressure and sandbag she was given Tranxene Leobardo acid She remained hemodynamically stable S1, S2 Fatigue lethargic Laying supine Currently on room air Discharge tomorrow
--- NOTE | 2023-03-15 11:13 | PC.SOCIAL ---
Imm update Imm updated with patient at bedside. Copy of page 2 provided. Patient verbalized understanding. Copy in chart initialed, dated and timed.
--- NOTE | 2023-03-15 11:42 | P.DS_ITS ---
Discharge Providers Date of Admission: 03/10/23 00:25 Date of Discharge: March 15, 2023 Attending Provider at Admission: Antonio Virgen DO Attending Provider at Discharge: Marycarmen Mcrae MD Primary Care Provider: Rajinder Rico MD Diagnoses at Discharge Discharge Diagnosis (1) ESRD (end stage renal disease): Status: Acute Reason for Visit Reason for Visit: AMS Hospital Course Hospital Course 87-year-old very pleasant female with end-stage renal disease Monday, presented from [facility] for generalized weakness fatigue and anemia, she required blood transfusion, she was put on Eliquis for DVT in the past, she was found to have acute anemia related to GI bleed underwent EGD and colonoscopy which showed moderate gastritis she was put on PPI and sucralfate, after discussion with the family during previous visit Eliquis low-dose was resumed this time return due to worsening of anemia hemoglobin was 6.6 on admission received 2 units of blood. She has occluded left AV graft, multiple discussions took place for goals of care initially patient wanted to stay full code and continue dialysis hands tunneled dialysis catheter was placed on 03/14, cardiology was consulted for IVC filter indication, recent venous Doppler did not show DVT hence this was put on hold for now, after multiple discussions with the patient and the family patient is stating that she would like to change her CODE STATUS to DNR/DNI and she should be made comfort care in case of any cardiac arrest. But for now she is wanting to continue dialysis Monday. She will be discharged back to her facility without Eliquis. Hemoglobin at the time of discharge is 9.8 Physical Exam Narrative: Lower extremity swelling improving, good granulation tissue with a scab with mild bleeding Patient has a lot of petechial rash around tunneled catheter placement but no active bleeding Nonfocal neuro exam Son at the bedside Patient is on room air Fatigued and lethargic Discharge Data Studies Completed and Pending Completed Studies During Hospitalization Category Date Time Status CXRP [XR chest 1V portable [id number]] Routine Exams 03/14/23 13:50 Completed XR chest 1V portable [id number] Stat Exams 03/09/23 22:19 [place] [id number] Stat Ultrasound 03/14/23 10:38 Completed US venous duplex upper extremity LT [CV venous duplex Ultrasound 03/09/23 22:52 [place] [id number]] Stat Pending at discharge Category Date Time Status SARS Covid-2 Antigen Routine Lab 03/15/23 10:51 Uncollected Urinalysis Stat Lab 03/09/23 22:19 Uncollected Radiology Impressions Chest X-Ray 03/14/23 13:50 IMPRESSION: 1. Satisfactory right central line position. No pneumothorax. 2. Blunting of the lateral costophrenic sulci may represent small pleural effusions. Laboratory Results WBC 7.68 10^3/uL (3.29-11.43) 03/15/23 05:32 RBC 2.95 10^6/uL (3.85-5.65) L 03/15/23 05:32 Hgb 9.80 g/dL (11.27-16.99) L 03/15/23 05:32 Hct 31.0 % (36-47) L 03/15/23 05:32 MCV 105.1 fl (85-98) H 03/15/23 05:32 MCH 33.2 pg (27-33) H 03/15/23 05:32 MCHC 31.6 g/dL (30-55) 03/15/23 05:32 RDW 19.3 % (12.1-15.1) H 03/15/23 05:32 Plt Count 174 10^3/cmm (157-399) 03/15/23 05:32 MPV 10.0 fL (7.4-10.4) 03/15/23 05:32 Neut % (Auto) 66.2 % 03/15/23 05:32 Lymph % (Auto) 18.9 % 03/15/23 05:32 [place] % (Auto) 7.3 % 03/15/23 05:32 Eos % (Auto) 6.5 % 03/15/23 05:32 Baso % (Auto) 0.7 % 03/15/23 05:32 Neut # (Auto) 5.09 10^3/uL (1.8-7.7) 03/15/23 05:32 Lymph # (Auto) 1.5 10^3/uL (0.8-4.8) 03/15/23 05:32 [place] # (Auto) 0.6 10^3/uL (0.2-0.9) 03/15/23 05:32 Eos # (Auto) 0.5 10^3/uL (0.0-0.8) 03/15/23 05:32 Baso # (Auto) 0.1 10^3/uL (0.0-0.1) 03/15/23 05:32 Nucleated RBC % (auto) 0 % 03/15/23 05:32 Nucleated RBCs # 0.0 /100WBC 03/15/23 05:32 PT 19.40 SECONDS (12.1-14.9) H 03/09/23 21:53 INR 1.58 (0.8-1.2) H 03/09/23 21:53 Specimen Type Arterial 03/09/23 22:40 Sample Site Radial, right 03/09/23 22:40 ABG pH 7.34 (7.35-7.45) L 03/09/23 22:40 ABG pCO2 43.1 mmHg (35-45) 03/09/23 22:40 ABG pO2 68.5 mmHg (80.0-100.0) L 03/09/23 22:40 ABG HCO3 23.0 mmol/L (22-26) 03/09/23 22:40 ABG Base Excess -2.6 mmol/L (-2.0-2.0) L 03/09/23 22:40 Eddi Test Pos 03/09/23 22:40 Hematocrit 18.9 % (37-47) L 03/09/23 22:40 O2 Delivery Device None 03/09/23 22:40 FiO2 21.0 % 03/09/23 22:40 Vmware Administrator ID Alewe 03/09/23 22:40 Sodium 140 mmol/L (136-145) 03/15/23 05:32 Potassium 4.2 mmol/L (3.5-5.1) 03/15/23 05:32 Chloride 107 mmol/L (98-107) 03/15/23 05:32 Carbon Dioxide 26 mmol/L (22-29) 03/15/23 05:32 Anion Gap 11.2 (5-19) 03/15/23 05:32 BUN 30 mg/dL (8-23) H 03/15/23 05:32 Creatinine 3.0 mg/dL (0.5-0.9) H 03/15/23 05:32 GFR Calculation Not Reportable 03/15/23 05:32 Glucose 91 mg/dL (65-115) 03/15/23 05:32 Calculated Osmolality 296 mOsm/kg (285-295) H 03/15/23 05:32 Lactic Acid 0.8 mmol/L (0.5-2.2) 03/09/23 22:37 Calcium 8.1 mg/dL (8.5-10.5) L 03/15/23 05:32 Phosphorus 2.5 mg/dL (2.5-4.5) 03/15/23 05:32 Magnesium 2.0 mg/dL (1.7-2.3) 03/15/23 05:32 Total Bilirubin 0.3 mg/dL (0.15-1.2) 03/09/23 21:53 AST 10 U/L (0-32) 03/09/23 21:53 ALT 8 U/L (0-33) 03/09/23 21:53 Alkaline Phosphatase 92 U/L (35-105) 03/09/23 21:53 Troponin T Baseline 158 ng/L (0-10) H* 03/09/23 21:53 Total Protein 4.0 g/dL (6.6-8.7) L 03/09/23 21:53 Albumin 2.1 g/dL (3.5-5.2) L 03/09/23 21:53 Globulin 1.9 g/dL (1.3-4.6) 03/09/23 21:53 Hep Bs Antigen Non-reactive (Nonreactive) 03/10/23 17:59 Hep Bs Antibody 17.8 (11.5-1000) 03/10/23 17:59 Hepatitis C Antibody Non-reactive (Nonreactive) 03/10/23 17:59 Blood Type O Positive 03/09/23 22:37 Rho(D) Type Positive 03/09/23 22:37 Antibody Screen Negative 03/09/23 22:37 Crossmatch See Detail 03/09/23 22:37 Vitals Last Vital Signs Temp 97.8 F 03/15/23 08:00 Pulse 79 03/15/23 08:00 Resp 18 03/15/23 08:00 BP 166/83 03/15/23 08:00 Pulse Ox 94 03/15/23 08:00 O2 Del Method Nasal Cannula 03/15/23 04:00 O2 Flow Rate 2 03/14/23 20:50 Discharge Plan Discharge Patient Disposition: Xfer SNF Condition: Stable Prescriptions: Continued acetaminophen [Tylenol] 325 mg tablet 650 mg PO Q4H PRN (Reason: Pain) ipratropium-albuterol 0.5 mg-3 mg(2.5 mg base)/3 mL solution for nebulization 3 ml INHALATION Q4H PRN (Reason: Shortness Of Breath) citalopram [Celexa] 10 mg tablet 10 mg PO DAILY Hold Instructions: Resume on 03/03/23. simethicone [Gas Relief (simethicone)] 80 mg tablet,chewable 80 mg PO DAILY PRN (Reason: abdominal distention) bisacodyl 10 mg suppository 10 mg IA DAILY PRN (Reason: constipation) Rx Instructions: if no bm in 3 days Fleet Enema 19-7 gram/118 mL enema 118 ml IA DAILY PRN (Reason: constipation) cholecalciferol (vitamin D3) [Vitamin D3] 25 mcg (1,000 unit) capsule 25 mcg PO DAILY (DME) elastic bandage 3 bandage See Rx Instructions .Route Rx Instructions: Apply to LLE as needed for swelling and continue to elevate the LE's as needed. lidocaine-prilocaine 2.5-2.5 % cream 1 applic topical .COMPLEX Rx Instructions: apply to L upper arm and wrap with saran wrap prior to dialysis on mon,wed and fri (DME) elastic bandage Bandage See Rx Instructions .Route Rx Instructions: Apply every day to LLE as needed. ondansetron HCl 8 mg tablet 8 mg PO TID PRN (Reason: nausea and vomiting) bumetanide 1 mg tablet 1 mg PO .COMPLEX Rx Instructions: 1 mg orally On non dialysis days; ON alprazolam 0.25 mg tablet 0.25 mg PO BID PRN (Reason: Anxiety) 30 Days Qty: 60 5RF Marybel-Eugenio Rx 1-60-300 mg-mg-mcg Tablet 1 tab PO DAILY calcium acetate(phosphat bind) 667 mg tablet 667 mg PO TID tamsulosin [Flomax] 0.4 mg capsule 0.4 mg PO BEDTIME lactulose [Constulose] 10 gram/15 mL Solution 30 ml PO BID pantoprazole 40 mg tablet,delayed release (DR/EC) 40 mg PO BID 42 Days Qty: 84 0RF sucralfate 100 mg/mL Suspension 1 g PO AC&BEDTIME 28 Days Qty: 1000 0RF carvedilol 6.25 mg Tablet 3.125 mg PO SuTuThSa@0900,2100 Qty: 90 0RF alprazolam 0.5 mg tablet 0.5 mg PO DAILY@1800 simethicone 125 mg Capsule See Rx Instructions .ROUTE .COMPLEX Rx Instructions: 125mg po after meals and at bedtime as needed for gas polyethylene glycol 3350 17 gram/dose Powder 17 g PO DAILY PRN (Reason: Constipation) sevelamer carbonate 800 mg tablet 800 mg PO TID Xtampza ER 18 mg cap,sprinkl,ER12hr(DONT CRUSH) 18 mg PO BID Hemorrhoidal (witch maia) 50 % Pads, Medicated 1 pad TOPICAL BID PRN (Reason: Hemorrhoids) naloxone 0.4 mg/mL Solution See Rx Instructions .ROUTE .COMPLEX Rx Instructions: im in deltoid or thigh may repeat every 3-5 minutes for 3 doses and call 911 if no response loperamide 2 mg Tablet 2 mg PO Q8H PRN (Reason: Diarrhea) diphenoxylate-atropine [Lomotil] 2.5-0.025 mg tablet 1 tab PO QID PRN (Reason: Diarrhea) hydrocodone-acetaminophen 10-325 mg tablet 1 tab PO Q4H PRN (Reason: Pain) Discontinued promethazine 12.5 mg suppository 12.5 mg IA Q8H PRN (Reason: nausea and vomiting) Eliquis 5 mg tablet 2.5 mg PO DAILY Qty: 120 5RF promethazine 25 mg tablet 25 mg PO BID PRN (Reason: Nausea And Vomiting) Discharge Orders: Discharge Order (Routine); Ordered 03/15/23 Ordered By: Marycarmen Mcrae Referrals: Rajinder Rico MD [Primary Care Provider] - Discharge Diet: Low Salt Patient Instructions: Dialysis Diet (DC), Chronic Hypertension (GEN), Anemia (GEN), Hemodialysis (DC) Discharge Attestations Time Spent in Discharge Care*: greater than 30 min Quality Metrics Clinical Quality Measures [ No reported AMI, CVA or VTE this stay] Coding Level of Care Code Acute Code for Chg Fwd Diagnoses ESRD (end stage renal disease) N18.6
[2023-03-15 13:34] LABS: SARS Covid-2 Antigen negative (Negative)
[2023-03-15] MEDS: ciprofloxacin 500 mg Tablet 250 MG PO (15:00)
--- NOTE | 2023-03-15 15:48 | PM.PN ---
Subjective Subjective: Patient seen and examined. She blood again from her catheter site today. This resolved with pressure and TXA Vitals/I&O/Wt Last Vital Signs Temp 98.4 F 03/15/23 12:00 Pulse 78 03/15/23 13:42 Resp 16 03/15/23 13:42 BP 162/77 03/15/23 13:42 Pulse Ox 94 03/15/23 13:42 O2 Del Method Nasal Cannula 03/15/23 04:00 O2 Flow Rate 2 03/14/23 20:50 03/15/23 03/15/23 03/15/23 06:59 14:59 22:59 Intake Total 250 / 1140 1241.5 / 1241.5 110 / 1351.5 Balance 250 / -181 1241.5 / 1241.5 110 / 1351.5 Weight last 48 hrs Weight 120 lb 4 oz Weight 121 lb 11.123 oz Weight 120 lb Physical Exam Narrative: General: No acute distress, awake alert and oriented x3 Skin: There is bruising across her chest from the bleeding yesterday, no erythema or exudate Data 03/15/23 05:32 03/15/23 05:32 A&P Assessment and plan (1) ESRD (end stage renal disease): Plan Status post permacath placement Medical management per primary Attestations Medical Necessity Statement*: Per primary Coding Level of Care Code 41111 Diagnoses ESRD (end stage renal disease) N18.6
[2023-03-15] MEDS: ALPRAZolam 0.5 mg Tablet PO (17:48)
[2023-03-16] VITALS (7 sets, daily range): BP systolic 140–158; BP diastolic 66–85; PULSE 76–93; RESP 16–18; TEMP 36.4–37; O2SAT 94–95
[2023-03-16] MEDS: pantoprazole 40 mg SDV IVP (01:44)
[2023-03-16 07:09] LABS: Basophils % 0.4 %; Eosinophils # 0.4 10^3/uL (0.0-0.8); Eosinophils % 5.7 %; Hematocrit 24.1 % (36-47); Lymphocytes # 1.7 10^3/uL (0.8-4.8); Lymphocytes % 24.7 %; Mean Corpuscular Hemoglobin 32.9 pg (27-33); Mean Platelet Volume 10.1 fL (7.4-10.4); Monocytes # 0.5 10^3/uL (0.2-0.9); Monocytes % 7.3 %; Neutrophils % 61.3 %; Nucleated Red Blood Cells % 0 %; Platelet Count 170 10^3/cmm (157-399); Red Blood Count 2.34 10^6/uL (3.85-5.65); Red Cell Distribution Width 19.2 % (12.1-15.1); White Blood Count 6.69 10^3/uL (3.29-11.43)
--- NOTE | 2023-03-16 07:46 | PC.HD ---
Prior to dialysis initiation, bulky gauze dressing removed from catheter insertion site. No blood noted on gauze, moderate amount of dried blood appreciated at catheter insertion site; no demian bleeding noted. Area cleansed with Chloraprep, triple antibiotic ointment applied to catheter insertion site, and Coverlet dressing applied. Patient educated regarding the need to change dressing at each dialysis session for infection control. Patient voiced understanding.
[2023-03-16] MEDS: carvedilol 6.25 mg Tablet 3.125 MG PO (09:12)
[2023-03-16] MEDS: ALPRAZolam 0.5 mg Tablet 0.25 MG PO (09:13)
[2023-03-16] MEDS: citalopram 20 mg Tablet 10 MG PO (09:13)
[2023-03-16] MEDS: HYDROcodone-acetaminophen 10-325 mg Tablet 1 TAB PO ×2 (09:13→13:15)
--- NOTE | 2023-03-16 09:53 | PM.PN ---
Subjective Subjective: getting HD Medications: Reviewed: Yes Vitals/I&O/Wt Last Vital Signs Temp 98.1 F 03/16/23 07:45 Pulse 93 03/16/23 07:45 Resp 16 03/16/23 07:45 BP 158/85 03/16/23 07:45 Pulse Ox 94 03/16/23 04:00 O2 Del Method Room Air 03/16/23 04:00 O2 Flow Rate 2 03/14/23 20:50 03/15/23 03/16/23 03/16/23 22:59 06:59 14:59 Intake Total 230 / 1471.5 Balance 230 / 1471.5 Weight last 48 hrs Weight 50.491 kg Weight 54.544 kg Weight 55.2 kg Physical Exam Narrative: General: No acute distress, awake alert and oriented x3 Skin: There is bruising across her chest from the bleeding yesterday, no erythema or exudate Const: COMMON NORMALS: no acute distress and alert Extremity: NARRATIVE EXTREMITY EXAM: no edema Neuro: SENSORIUM/ORIENTATION: Yes alert Data 03/16/23 07:00 03/15/23 05:32 A&P Assessment and plan (1) ESRD (end stage renal disease): Plan 1. ESRD, clotted dialysis access, s/p placement Femoral dialysis catheter, HD Monday and Monday. Femoral catheter removed. - s/p PC placement 03/14 , plan for TTS schedule while in here . 2. Anemia, heme + stool, s/p transfusion 1u PRBC, hb 7.7 , ordered МАРИНА 3. Poor nutrition Pt evaluated using audiovisual cart. Time spent 20 min Attestations Medical Necessity Statement*: per medicine team Coding Level of Care Code Acute Code for Chg Fwd Diagnoses ESRD (end stage renal disease) N18.6
[2023-03-16] MEDS: epoetin alfa 1000 Unit/0.05 mL (ESRD) 20000 UNIT SUBCUT (10:44)
--- NOTE | 2023-03-16 11:36 | PC.HD ---
Approximately 45 minutes prior to completion of treatment, patient's BPs began dropping to as low as 70s systolic. Hypotension dialysis interventions taken. Dialysate temperature lowered from 36.0C to 35.0C and UF rate was lowered to 300 mL/hour. Due to the UF rate being lowered, UF goal was not met. Goal was 2000, removed 1823 mL.
--- NOTE | 2023-03-16 13:38 | PC.NURSE ---
Report called to Janice at [facility]. All questions answered. Tele removed. Iv removed. Pt tolerated well. Waiting for ride. 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 Will continue to monitor.
== END 2023-03-16 14:03 | disposition skilled nursing facility (03) | DRG 377 ==
LOC: ER 23:43 → ICU 03-10 00:25 → MEDSURG 03-10 18:25
PROVIDERS: Internal Medicine; Surgery; Admitting Provider Internal Medicine; Emergency Provider Emergency Medicine; PCP Internal Medicine; Visit Provider Internal Medicine
PROC: 0JH63XZ Insertion of Tunneled Vascular Access Device into Chest Subcutaneous Tissue and Fascia, Percutaneous Approach (ICD-10-PCS; principal; 2023-03-14 13:00)
DX: K29.01 Acute gastritis with bleeding (principal); N18.6 End stage renal disease; I13.2 Hypertensive heart and chronic kidney disease with heart failure and with stage 5 chronic kidney disease, or end stage renal disease; I50.32 Chronic diastolic (congestive) heart failure; T82.868A Thrombosis due to vascular prosthetic devices, implants and grafts, initial encounter; J96.11 Chronic respiratory failure with hypoxia; Z99.2 Dependence on renal dialysis; D63.1 Anemia in chronic kidney disease; Z86.718 Personal history of other venous thrombosis and embolism; Z79.891 Long term (current) use of opiate analgesic; Z87.440 Personal history of urinary (tract) infections; Z91.81 History of falling; M79.7 Fibromyalgia; K21.9 Gastro-esophageal reflux disease without esophagitis; Z85.3 Personal history of malignant neoplasm of breast; Z66 Do not resuscitate; R19.7 Diarrhea, unspecified; Y81.8 Miscellaneous general- and plastic-surgery devices associated with adverse incidents, not elsewhere classified; S32.402D Unspecified fracture of left acetabulum, subsequent encounter for fracture with routine healing; W19.XXXD Unspecified fall, subsequent encounter; F32.A Depression, unspecified; F41.9 Anxiety disorder, unspecified; L89.322 Pressure ulcer of left buttock, stage 2; I48.0 Paroxysmal atrial fibrillation; I25.2 Old myocardial infarction; E78.5 Hyperlipidemia, unspecified; Z86.73 Personal history of transient ischemic attack (TIA), and cerebral infarction without residual deficits; Z86.711 Personal history of pulmonary embolism; D50.0 Iron deficiency anemia secondary to blood loss (chronic)
CPT/HCPCS: 36415; 36430; 36592; 36600; 71045; 77001; 80048; 80053; 82274; 82803; 83605; 83735; 84100; 84484; 85014; 85018; 85025; 85610; 86706; 86803; 86850; 86900; 86920; 87340; 87426; 87493; 90935; 93005; 93970; 93971; 97110; 97162; 97530; 99285; C9113; J1644; J1956; J2250; J2704; J3010; J3475; J7030; J7042; P9016; Q0163; Q3014; Q4081

== ENCOUNTER 2023-03-24 07:33 | Outpatient (CLI) | payer MEDICARE, OTHER, SELFPAY ==
[2023-03-24 08:12] LABS: Hematocrit 24.7 % (36-47)
== END 2023-03-24 07:34 | disposition home or self-care (01) ==
LOC: LAB 07:37
PROVIDERS: PCP Internal Medicine; Visit Provider Family Medicine
DX: D50.9 Iron deficiency anemia, unspecified (principal)
CPT/HCPCS: 85014; 85018

== ENCOUNTER 2023-03-28 07:41 | Outpatient (RCR) | payer MEDICARE, OTHER, SELFPAY ==
[2023-03-28] VITALS (11 sets, daily range): BP systolic 123–146; BP diastolic 58–71; PULSE 73–97; RESP 16–17; TEMP 35.7–36.9; O2SAT 92–97
[2023-03-28] MEDS: HYDROcodone-acetaminophen 5-325 mg Tablet 1 TAB PO (09:26)
== END 2023-04-08 23:59 | disposition home or self-care (01) ==
PROVIDERS: PCP Internal Medicine; Visit Provider Internal Medicine Nephrology
DX: D64.9 Anemia, unspecified (principal)
CPT/HCPCS: 36430; 86850; 86900; 86920; P9040

== ENCOUNTER → 2023-04-25 10:23 | Outpatient (BNVA) | payer MEDICARE, OTHER, SELFPAY | PROVIDERS: PCP Internal Medicine; Visit Provider Physician Assistant | DX: S32.402A Unspecified fracture of left acetabulum, initial encounter for closed fracture (principal); X58.XXXA Exposure to other specified factors, initial encounter | CPT/HCPCS: 73502; 99213 ==

== ENCOUNTER 2023-05-02 02:59 | Emergency (ER) | payer MEDICARE, OTHER, SELFPAY ==
[2023-05-02] VITALS (7 sets, daily range): BP systolic 95–126; BP diastolic 45–57; PULSE 61–104; RESP 18–33; TEMP 36.7; O2SAT 95–97; BMI 18.3
[2023-05-02 04:25] LABS: Basophils % 0.6 %; Eosinophils # 0.1 10^3/uL (0.0-0.8); Eosinophils % 2.1 %; Hematocrit 31.2 % (36-47); Lymphocytes # 1.4 10^3/uL (0.8-4.8); Lymphocytes % 26.5 %; Mean Corpuscular Hemoglobin 33.7 pg (27-33); Mean Platelet Volume 10.4 fL (7.4-10.4); Monocytes # 0.7 10^3/uL (0.2-0.9); Monocytes % 12.3 %; Neutrophils # 3.07 10^3/uL (1.8-7.7); Neutrophils % 58.1 %; Nucleated Red Blood Cells % 0 %; Platelet Count 171 10^3/cmm (157-399); Red Blood Count 3.06 10^6/uL (3.85-5.65); Red Cell Distribution Width 20.6 % (12.1-15.1); White Blood Count 5.28 10^3/uL (3.29-11.43)
--- NOTE | 2023-05-02 04:29 | W.ED.GENADLT ---
Documented by User: Javi Walls DO 05/02/23 04:51 HPI - General Adult General: Chief complaint: General Medical Stated complaint: Hypotension/ Cellulitis Time Seen by Provider: 05/02/23 03:10 History of Present Illness: Patient presents to the ER by EMS from [facility] with complaints of hypotension and bilateral lower leg redness and weeping. Patient was unable to complete dialysis today and last Monday. The reason the day was her blood pressure was too low. Patient does appear to be very tired at this time but is able to answer questions and follow commands. Patient does have redness in her bilateral lower extremities with swelling noted. Both lower extremities have pitting edema bilaterally. Patient's daughter also says she has had horrible diarrhea constantly for the last 4 days and is wondering if she is dehydrated and/or her electrolytes are abnormal. Review of Systems General: Reports: 10 or more systems reviewed and unremarkable except in HPI and below PFSH ED PFSH: Medical History Acetabulum fracture, left Acute GI bleeding Anemia of chronic disease Anemia Anxiety and depression Chronic diarrhea Chronic kidney disease DDD (degenerative disc disease) Decubitus ulcer of buttock Decubitus ulcer of left lower back, stage 2 Decubitus ulcer, buttock, right, unstageable Diastolic CHF DVT (deep venous thrombosis) ESRD (end stage renal disease) ESRD (end stage renal disease) on dialysis Fall Fibromyalgia GERD (gastroesophageal reflux disease) History of breast cancer Previously followed by Dr. Santoyo History of pulmonary embolus (PE) 08/2016 History of stroke 11/14/16 Hyperlipidemia Hypertension Hypoxemic respiratory failure, chronic Incomplete bladder emptying Internal and external bleeding hemorrhoids Leg wound, left Lives in assisted living facility Low BP Lumbar spinal stenosis Non-STEMI (non-ST elevated myocardial infarction) Osteoarthritis Paroxysmal A-fib Peritoneal dialysis catheter in place Recurrent UTI Restrictive lung disease Swelling of both lower extremities Urinary retention Urinary tract infection UTI (urinary tract infection) Surgical History History of back surgery History of esophagogastroduodenoscopy (EGD) 08/03/17 mild gastritis and duodenitis History of hemiarthroplasty of left hip 11/18/18: Dr. Mendoza History of hysterectomy History of lumpectomy of left breast History of right cataract surgery S/P hemodialysis catheter insertion Family History Other Cancer Denies family history of Anesthesia complication Bleeding disorder Social History Second hand smoke exposure: No Alcohol intake: never Substance/Drug Use: never Additional social history: FULL CODE DISCUSSED WITH PATIENT ON 02/04/20 Adopted: No Caregiver/support person: Yes Lives independently: Yes Housing: Assisted Living Facility Marital status: Marital status details: with dementia Physical Exam Const: COMMON NORMALS: no acute distress, average body habitus, patient oriented x3, no limitations, healthy appearing, alert and well nourished HENMT: COMMON NORMALS: normocephalic, atraumatic, hearing grossly normal bilaterally, external ears normal, Normal external nose present, moist oral mucous membranes and oropharynx normal HEAD & SCALP: normocephalic and atraumatic NOSE: Normal external nose present EXTERNAL EAR: Yes external ears normal Neck/C-Spine: COMMON NORMALS: no JVD Chest: COMMONS NORMALS: normal inspection of the chest and normal palpation of entire chest wall Resp: COMMON NORMALS: normal respiratory effort, No retractions, No use of accessory muscles and clear to auscultation bilaterally AUSCULTATION: clear to auscultation bilaterally Cardio: COMMON NORMALS: no JVD, regular rate, regular rhythm, S1 normal heart sound present, S2 normal heart sound present, No gallops present (Cardio), No clicks present (Cardio), No murmurs present (Cardio) and No rub (Cardio) RATE: regular rate RHYTHM: regular rhythm HEART SOUNDS: S1 normal heart sound present and S2 normal heart sound present GI: COMMON NORMALS: Normal to inspection, nondistended, normoactive bowel sounds present, Soft to palpation, non-tender, No hepatosplenomegaly present and no masses PALPATION: Yes Soft to palpation and Yes No hepatosplenomegaly present Extremity: NARRATIVE EXTREMITY EXAM: Bilateral lower extremities ready in Nature, right worse than left. Both have pitting edema right worse than left. Neuro: COMMON NORMALS: patient oriented x3 SENSORIUM/ORIENTATION: Yes alert Course Vital Signs: Vital signs: Vital Signs Temperature 98.0 F 05/02/23 03:12 Pulse Rate 88 05/02/23 07:07 Respiratory Rate 21 H 05/02/23 07:07 Blood Pressure 100/46 05/02/23 07:07 Pulse Oximetry 96 05/02/23 07:07 Oxygen Delivery Me thod Room Air 05/02/23 06:33 MDM - General Adult Differential Diagnosis Edema, cellulitis, hypotension,ESRD on dialysis Medical Records I reviewed the patient's medical records. Lab Data I reviewed the patient's lab results. 05/02/23 03:29 05/02/23 03:29 Laboratory Results WBC 5.28 10^3/uL (3.29-11.43) 05/02/23 03:29 RBC 3.06 10^6/uL (3.85-5.65) L 05/02/23 03:29 Hgb 10.30 g/dL (11.27-16.99) L 05/02/23 03:29 Hct 31.2 % (36-47) L 05/02/23 03:29 MCV 102.0 fl (85-98) H 05/02/23 03:29 MCH 33.7 pg (27-33) H 05/02/23 03:29 MCHC 33.0 g/dL (30-55) 05/02/23 03:29 RDW 20.6 % (12.1-15.1) H 05/02/23 03:29 Plt Count 171 10^3/cmm (157-399) 05/02/23 03:29 MPV 10.4 fL (7.4-10.4) 05/02/23 03:29 Neut % (Auto) 58.1 % 05/02/23 03:29 Lymph % (Auto) 26.5 % 05/02/23 03:29 Hitchcock % (Auto) 12.3 % 05/02/23 03:29 Eos % (Auto) 2.1 % 05/02/23 03:29 Baso % (Auto) 0.6 % 05/02/23 03:29 Neut # (Auto) 3.07 10^3/uL (1.8-7.7) 05/02/23 03:29 Lymph # (Auto) 1.4 10^3/uL (0.8-4.8) 05/02/23 03:29 Hitchcock # (Auto) 0.7 10^3/uL (0.2-0.9) 05/02/23 03:29 Eos # (Auto) 0.1 10^3/uL (0.0-0.8) 05/02/23 03:29 Baso # (Auto) 0.0 10^3/uL (0.0-0.1) 05/02/23 03:29 Nucleated RBC % (auto) 0 % 05/02/23 03:29 Nucleated RBCs # 0.0 /100WBC 05/02/23 03:29 Sodium 139 mmol/L (136-145) 05/02/23 03:29 Potassium 2.7 mmol/L (3.5-5.1) L* 05/02/23 03:29 Chloride 100 mmol/L (98-107) 05/02/23 03:29 Carbon Dioxide 27 mmol/L (22-29) 05/02/23 03:29 Anion Gap 14.7 (5-19) 05/02/23 03:29 BUN 45 mg/dL (8-23) H 05/02/23 03:29 Creatinine 4.1 mg/dL (0.5-0.9) H 05/02/23 03:29 GFR Calculation Not Reportable 05/02/23 03:29 Glucose 88 mg/dL (65-115) 05/02/23 03:29 Calculated Osmolality 299 mOsm/kg (285-295) H 05/02/23 03:29 Lactic Acid 0.8 mmol/L (0.5-2.2) 05/02/23 03:29 Calcium 8.4 mg/dL (8.5-10.5) L 05/02/23 03:29 Phosphorus 3.9 mg/dL (2.5-4.5) 05/02/23 03:29 Magnesium 1.6 mg/dL (1.7-2.3) L 05/02/23 03:29 Total Bilirubin 0.3 mg/dL (0.15-1.2) 05/02/23 03:29 AST 15 U/L (0-32) 05/02/23 03:29 ALT 15 U/L (0-33) 05/02/23 03:29 Alkaline Phosphatase 123 U/L (35-105) H 05/02/23 03:29 Total Protein 5.0 g/dL (6.6-8.7) L 05/02/23 03:29 Albumin 2.6 g/dL (3.5-5.2) L 05/02/23 03:29 Globulin 2.4 g/dL (1.3-4.6) 05/02/23 03:29 Procalcitonin 0.56 ng/mL (0-0.5) H 05/02/23 03:29 No radiology studies performed this visit Discharge Plan Discharge Patient Disposition: Home Clinical Impression: Hypotension, ESRD on dialysis, Hypomagnesemia, Hypokalemia Condition: Stable Prescriptions: New potassium chloride 20 mEq tablet extended release 20 meq PO DAILY Qty: 30 0RF magnesium oxide 400 mg magnesium capsule 400 mg PO BID Qty: 30 0RF Discontinued bumetanide 1 mg tablet 1 mg PO .COMPLEX Rx Instructions: 1 mg orally On non dialysis days; ON lactulose [Constulose] 10 gram/15 mL Solution 30 ml PO BID carvedilol 6.25 mg Tablet 3.125 mg PO SuTuThSa@0900,2100 Qty: 90 0RF No Action acetaminophen [Tylenol] 325 mg tablet 650 mg PO Q4H PRN (Reason: Pain) ipratropium-albuterol 0.5 mg-3 mg(2.5 mg base)/3 mL solution for nebulization 3 ml INHALATION Q4H PRN (Reason: Shortness Of Breath) citalopram [Celexa] 10 mg tablet 10 mg PO DAILY Hold Instructions: Resume on 03/03/23. hydrocodone-acetaminophen 7.5-325 mg tablet 1 tab PO Q6H PRN (Reason: pain) 5 Days Qty: 20 0RF simethicone [Gas Relief (simethicone)] 80 mg tablet,chewable 80 mg PO DAILY PRN (Reason: abdominal distention) bisacodyl 10 mg suppository 10 mg IA DAILY PRN (Reason: constipation) Rx Instructions: if no bm in 3 days Fleet Enema 19-7 gram/118 mL enema 118 ml IA DAILY PRN (Reason: constipation) cholecalciferol (vitamin D3) [Vitamin D3] 25 mcg (1,000 unit) capsule 25 mcg PO DAILY (DME) elastic bandage 3 bandage See Rx Instructions .Route Rx Instructions: Apply to LLE as needed for swelling and continue to elevate the LE's as needed. lidocaine-prilocaine 2.5-2.5 % cream 1 applic topical .COMPLEX Rx Instructions: apply to L upper arm and wrap with saran wrap prior to dialysis on mon,wed and fri (DME) elastic bandage Bandage See Rx Instructions .Route Rx Instructions: Apply every day to LLE as needed. ondansetron HCl 8 mg tablet 8 mg PO TID PRN (Reason: nausea and vomiting) alprazolam 0.25 mg tablet 0.25 mg PO BID PRN (Reason: Anxiety) 30 Days Qty: 60 5RF Marybel-Eugenio Rx 1-60-300 mg-mg-mcg Tablet 1 tab PO DAILY calcium acetate(phosphat bind) 667 mg tablet 667 mg PO TID tamsulosin [Flomax] 0.4 mg capsule 0.4 mg PO BEDTIME alprazolam 0.5 mg tablet 0.5 mg PO DAILY@1800 simethicone 125 mg Capsule See Rx Instructions .ROUTE .COMPLEX Rx Instructions: 125mg po after meals and at bedtime as needed for gas polyethylene glycol 3350 17 gram/dose Powder 17 g PO DAILY PRN (Reason: Constipation) sevelamer carbonate 800 mg tablet 800 mg PO TID Xtampza ER 18 mg cap,sprinkl,ER12hr(DONT CRUSH) 18 mg PO BID Hemorrhoidal (witch maia) 50 % Pads, Medicated 1 pad TOPICAL BID PRN (Reason: Hemorrhoids) naloxone 0.4 mg/mL Solution See Rx Instructions .ROUTE .COMPLEX Rx Instructions: im in deltoid or thigh may repeat every 3-5 minutes for 3 doses and call 911 if no response loperamide 2 mg Tablet 2 mg PO Q8H PRN (Reason: Diarrhea) diphenoxylate-atropine [Lomotil] 2.5-0.025 mg tablet 1 tab PO QID PRN (Reason: Diarrhea) hydrocodone-acetaminophen 10-325 mg tablet 1 tab PO Q4H PRN (Reason: Pain) Discharge Orders: Discharge ED (Routine); Ordered 05/02/23 Ordered By: Obinna Fletcher Referrals: Rajinder Rico MD [Primary Care Provider] - Discharge Diet: Usual diet Discharge Activity: Increase activity as tolerated Patient Instructions: Opioid Safety, Pain Management Activity Restrictions/Additional Instructions: Stop carvedilol, Bumex, and lactulose. Follow-up with your doctor within the next 2 days to reevaluate blood pressure. Repeat BMP and magnesium levels at that time as well. Sign Out Sign Out Data: Patient Sign Out occurred on 05/02/23 at 05:55. Patient's care was discussed, and care was transferred from to Obinna Fletcher DO. Coding Level of Care Code ED Temperature Control Inspector for Chg Fwd Documented by User: Obinna Fletcher DO 05/02/23 07:57 HPI - General Adult General: Chief complaint: General Medical Stated complaint: Hypotension/ Cellulitis Time Seen by Provider: 05/02/23 03:10 PFSH ED PFSH: Medical History Acetabulum fracture, left Acute GI bleeding Anemia of chronic disease Anemia Anxiety and depression Chronic diarrhea Chronic kidney disease DDD (degenerative disc disease) Decubitus ulcer of buttock Decubitus ulcer of left lower back, stage 2 Decubitus ulcer, buttock, right, unstageable Diastolic CHF DVT (deep venous thrombosis) ESRD (end stage renal disease) ESRD (end stage renal disease) on dialysis Fall Fibromyalgia GERD (gastroesophageal reflux disease) History of breast cancer Previously followed by Dr. Santoyo History of pulmonary embolus (PE) 08/2016 History of stroke 11/14/16 Hyperlipidemia Hypertension Hypoxemic respiratory failure, chronic Incomplete bladder emptying Internal and external bleeding hemorrhoids Leg wound, left Lives in assisted living facility Low BP Lumbar spinal stenosis Non-STEMI (non-ST elevated myocardial infarction) Osteoarthritis Paroxysmal A-fib Peritoneal dialysis catheter in place Recurrent UTI Restrictive lung disease Swelling of both lower extremities Urinary retention Urinary tract infection UTI (urinary tract infection) Surgical History History of back surgery History of esophagogastroduodenoscopy (EGD) 08/03/17 mild gastritis and duodenitis History of hemiarthroplasty of left hip 11/18/18: Dr. Mendoza History of hysterectomy History of lumpectomy of left breast History of right cataract surgery S/P hemodialysis catheter insertion Family History Other Cancer Denies family history of Anesthesia complication Bleeding disorder Social History Second hand smoke exposure: No Alcohol intake: never Substance/Drug Use: never Additional social history: FULL CODE DISCUSSED WITH PATIENT ON 02/04/20 Adopted: No Caregiver/support person: Yes Lives independently: Yes Housing: Assisted Living Facility Marital status: Marital status details: with dementia Course Vital Signs: Vital signs: Vital Signs Temperature 98.0 F 05/02/23 03:12 Pulse Rate 88 05/02/23 07:07 Respiratory Rate 21 H 05/02/23 07:07 Blood Pressure 100/46 05/02/23 07:07 Pulse Oximetry 96 05/02/23 07:07 Oxygen Delivery Me thod Room Air 05/02/23 06:33 MDM - General Adult Medical Decision Making Care assumed at change of shift. Talking to family patient had a fall with an acetabular fracture earlier this summer. No surgery was started on physical therapy. Was at the retirement recently tried to transition back to assisted care since then she had a precipitous decline in her health. She is on dialysis has not been able to complete dialysis runs recently because of hypotension. She also had some chronic diarrhea. Reviewing her medication list she still on carvedilol and Bumex family states she does make a small amount of urine. In addition to this she has had a significant amount of diarrhea earlier recently she is still on lactulose twice daily. She was recently on antibiotics for cystitis family believes she has completed those. She is chronic venous stasis edema of her lower extremities as well. She has no leukocytosis. Discussed with him at this point recommend stopping her carvedilol and Bumex since she is not really making any urine or she is having a lot of fluctuations of blood pressure. Her blood pressure improved with small fluid bolus given in the emergency room. Also recommend stopping lactulose. Finally recommend that she go back to full retirement level of care currently at this point the family agrees as well that she is not a candidate for assisted living. Medical Records I reviewed the patient's medical records. Lab Data I reviewed the patient's lab results. 05/02/23 03:29 05/02/23 03:29 Laboratory Results WBC 5.28 10^3/uL (3.29-11.43) 05/02/23 03:29 RBC 3.06 10^6/uL (3.85-5.65) L 05/02/23 03:29 Hgb 10.30 g/dL (11.27-16.99) L 05/02/23 03:29 Hct 31.2 % (36-47) L 05/02/23 03:29 MCV 102.0 fl (85-98) H 05/02/23 03:29 MCH 33.7 pg (27-33) H 05/02/23 03:29 MCHC 33.0 g/dL (30-55) 05/02/23 03:29 RDW 20.6 % (12.1-15.1) H 05/02/23 03:29 Plt Count 171 10^3/cmm (157-399) 05/02/23 03:29 MPV 10.4 fL (7.4-10.4) 05/02/23 03:29 Neut % (Auto) 58.1 % 05/02/23 03:29 Lymph % (Auto) 26.5 % 05/02/23 03:29 Hitchcock % (Auto) 12.3 % 05/02/23 03:29 Eos % (Auto) 2.1 % 05/02/23 03:29 Baso % (Auto) 0.6 % 05/02/23 03:29 Neut # (Auto) 3.07 10^3/uL (1.8-7.7) 05/02/23 03:29 Lymph # (Auto) 1.4 10^3/uL (0.8-4.8) 05/02/23 03:29 Hitchcock # (Auto) 0.7 10^3/uL (0.2-0.9) 05/02/23 03:29 Eos # (Auto) 0.1 10^3/uL (0.0-0.8) 05/02/23 03:29 Baso # (Auto) 0.0 10^3/uL (0.0-0.1) 05/02/23 03:29 Nucleated RBC % (auto) 0 % 05/02/23 03:29 Nucleated RBCs # 0.0 /100WBC 05/02/23 03:29 Sodium 139 mmol/L (136-145) 05/02/23 03:29 Potassium 2.7 mmol/L (3.5-5.1) L* 05/02/23 03:29 Chloride 100 mmol/L (98-107) 05/02/23 03:29 Carbon Dioxide 27 mmol/L (22-29) 05/02/23 03:29 Anion Gap 14.7 (5-19) 05/02/23 03:29 BUN 45 mg/dL (8-23) H 05/02/23 03:29 Creatinine 4.1 mg/dL (0.5-0.9) H 05/02/23 03:29 GFR Calculation Not Reportable 05/02/23 03:29 Glucose 88 mg/dL (65-115) 05/02/23 03:29 Calculated Osmolality 299 mOsm/kg (285-295) H 05/02/23 03:29 Lactic Acid 0.8 mmol/L (0.5-2.2) 05/02/23 03:29 Calcium 8.4 mg/dL (8.5-10.5) L 05/02/23 03:29 Phosphorus 3.9 mg/dL (2.5-4.5) 05/02/23 03:29 Magnesium 1.6 mg/dL (1.7-2.3) L 05/02/23 03:29 Total Bilirubin 0.3 mg/dL (0.15-1.2) 05/02/23 03:29 AST 15 U/L (0-32) 05/02/23 03:29 ALT 15 U/L (0-33) 05/02/23 03:29 Alkaline Phosphatase 123 U/L (35-105) H 05/02/23 03:29 Total Protein 5.0 g/dL (6.6-8.7) L 05/02/23 03:29 Albumin 2.6 g/dL (3.5-5.2) L 05/02/23 03:29 Globulin 2.4 g/dL (1.3-4.6) 05/02/23 03:29 Procalcitonin 0.56 ng/mL (0-0.5) H 10/24/23 03:29 Discharge Plan Discharge Patient Disposition: Home Clinical Impression: Hypotension, ESRD on dialysis, Hypomagnesemia, Hypokalemia Condition: Stable Prescriptions: New potassium chloride 20 mEq tablet extended release 20 meq PO DAILY Qty: 30 0RF magnesium oxide 400 mg magnesium capsule 400 mg PO BID Qty: 30 0RF Discontinued bumetanide 1 mg tablet 1 mg PO .COMPLEX Rx Instructions: 1 mg orally On non dialysis days; ON lactulose [Constulose] 10 gram/15 mL Solution 30 ml PO BID carvedilol 6.25 mg Tablet 3.125 mg PO SuTuThSa@0900,2100 Qty: 90 0RF No Action acetaminophen [Tylenol] 325 mg tablet 650 mg PO Q4H PRN (Reason: Pain) ipratropium-albuterol 0.5 mg-3 mg(2.5 mg base)/3 mL solution for nebulization 3 ml INHALATION Q4H PRN (Reason: Shortness Of Breath) citalopram [Celexa] 10 mg tablet 10 mg PO DAILY Hold Instructions: Resume on 03/03/23. hydrocodone-acetaminophen 7.5-325 mg tablet 1 tab PO Q6H PRN (Reason: pain) 5 Days Qty: 20 0RF simethicone [Gas Relief (simethicone)] 80 mg tablet,chewable 80 mg PO DAILY PRN (Reason: abdominal distention) bisacodyl 10 mg suppository 10 mg IA DAILY PRN (Reason: constipation) Rx Instructions: if no bm in 3 days Fleet Enema 19-7 gram/118 mL enema 118 ml IA DAILY PRN (Reason: constipation) cholecalciferol (vitamin D3) [Vitamin D3] 25 mcg (1,000 unit) capsule 25 mcg PO DAILY (DME) elastic bandage 3 bandage See Rx Instructions .Route Rx Instructions: Apply to LLE as needed for swelling and continue to elevate the LE's as needed. lidocaine-prilocaine 2.5-2.5 % cream 1 applic topical .COMPLEX Rx Instructions: apply to L upper arm and wrap with saran wrap prior to dialysis on mon,wed and fri (DME) elastic bandage Bandage See Rx Instructions .Route Rx Instructions: Apply every day to LLE as needed. ondansetron HCl 8 mg tablet 8 mg PO TID PRN (Reason: nausea and vomiting) alprazolam 0.25 mg tablet 0.25 mg PO BID PRN (Reason: Anxiety) 30 Days Qty: 60 5RF Marybel-Eugenio Rx 1-60-300 mg-mg-mcg Tablet 1 tab PO DAILY calcium acetate(phosphat bind) 667 mg tablet 667 mg PO TID tamsulosin [Flomax] 0.4 mg capsule 0.4 mg PO BEDTIME alprazolam 0.5 mg tablet 0.5 mg PO DAILY@1800 simethicone 125 mg Capsule See Rx Instructions .ROUTE .COMPLEX Rx Instructions: 125mg po after meals and at bedtime as needed for gas polyethylene glycol 3350 17 gram/dose Powder 17 g PO DAILY PRN (Reason: Constipation) sevelamer carbonate 800 mg tablet 800 mg PO TID Xtampza ER 18 mg cap,sprinkl,ER12hr(DONT CRUSH) 18 mg PO BID Hemorrhoidal (witch maia) 50 % Pads, Medicated 1 pad TOPICAL BID PRN (Reason: Hemorrhoids) naloxone 0.4 mg/mL Solution See Rx Instructions .ROUTE .COMPLEX Rx Instructions: im in deltoid or thigh may repeat every 3-5 minutes for 3 doses and call 911 if no response loperamide 2 mg Tablet 2 mg PO Q8H PRN (Reason: Diarrhea) diphenoxylate-atropine [Lomotil] 2.5-0.025 mg tablet 1 tab PO QID PRN (Reason: Diarrhea) hydrocodone-acetaminophen 10-325 mg tablet 1 tab PO Q4H PRN (Reason: Pain) Discharge Orders: Discharge ED (Routine); Ordered 05/02/23 Ordered By: Obinna Fletcher Referrals: Rajinder Rico MD [Primary Care Provider] - Discharge Diet: Usual diet Discharge Activity: Increase activity as tolerated Patient Instructions: Opioid Safety, Pain Management Activity Restrictions/Additional Instructions: Stop carvedilol, Bumex, and lactulose. Follow-up with your doctor within the next 2 days to reevaluate blood pressure. Repeat BMP and magnesium levels at that time as well. Sign Out Sign Out Data: Patient Sign Out occurred on 05/02/23 at 05:55. Patient's care was discussed, and care was transferred from to Obinna Fletcher DO. Coding Level of Care Code ED Temperature Control Inspector for Alyson Abdullahi
[2023-05-02 04:39] LABS: Alanine Aminotransferase 15 U/L (0-33); Albumin Level 2.6 g/dL (3.5-5.2); Alkaline Phosphatase 123 U/L (35-105); Anion Gap 14.7 (5-19); Aspartate Amino Transferase 15 U/L (0-32); Blood Urea Nitrogen 45 mg/dL (8-23); Calcium 8.4 mg/dL (8.5-10.5); Carbon Dioxide 27 mmol/L (22-29); Chloride 100 mmol/L (98-107); Globulin 2.4 g/dL (1.3-4.6); Glucose 88 mg/dL (65-115); Magnesium 1.6 mg/dL (1.7-2.3); Osmolality Calculated 299 mOsm/kg (285-295); Phosphorus 3.9 mg/dL (2.5-4.5); Sodium 139 mmol/L (136-145); Total Bilirubin 0.3 mg/dL (0.15-1.2)
[2023-05-02 04:40] LABS: Lactic Sepsis W/Reflex 0.8 mmol/L (0.5-2.2)
[2023-05-02 04:42] LABS: Potassium 2.7 mmol/L (3.5-5.1)
[2023-05-02 04:45] LABS: Procalcitonin 0.56 ng/mL (0-0.5)
[2023-05-02] MEDS: sodium chloride 0.9% 500 ML 999 ML IV (05:01)
[2023-05-02] MEDS: lidocaine 1% 5 ML in potassium chloride premix 100 ML 52.5 ML IV (05:02)
[2023-05-02] MEDS: potassium chloride ER 20 mEq Tablet 40 MEQ PO (05:10)
[2023-05-02] MEDS: potassium chloride oral liq 20 mEq/15 mL UDC PO ×2 (06:24)
[2023-05-02] MEDS: magnesium sulfate premix 2 GM/50 ML PIGGYBACK IV (06:24)
--- NOTE | 2023-05-02 06:29 | PC.NURSE ---
per Dr. Fletcher to stop IV infusion of potassium chloride. administer 40 meq of oral liquid potassium chloride. family updated.
== END 2023-05-02 09:39 | disposition home or self-care (01) ==
PROVIDERS: Emergency Medicine; Emergency Provider Family Medicine; PCP Internal Medicine
DX: I95.9 Hypotension, unspecified (principal); E83.42 Hypomagnesemia; E87.6 Hypokalemia; I13.2 Hypertensive heart and chronic kidney disease with heart failure and with stage 5 chronic kidney disease, or end stage renal disease; N18.6 End stage renal disease; I50.9 Heart failure, unspecified; Z99.2 Dependence on renal dialysis; Z85.3 Personal history of malignant neoplasm of breast; Z86.73 Personal history of transient ischemic attack (TIA), and cerebral infarction without residual deficits; E78.5 Hyperlipidemia, unspecified; I25.2 Old myocardial infarction
CPT/HCPCS: 80053; 83605; 83735; 84100; 84145; 85025; 96365; 96367; 99284; J3475; J3480; J7040

== ENCOUNTER 2023-06-05 19:30 | Emergency (ER) | payer MEDICARE, OTHER, SELFPAY ==
[2023-06-05 19:33] VITALS: BP 163/74; PULSE 71; RESP 18; TEMP 37.7; O2SAT 90
--- NOTE | 2023-06-05 19:41 | XRR_ITS ---
PROCEDURE INFORMATION: Exam: XR Chest Exam date and time: 06/05/2023 7:44 PM Age: 88 years old Clinical indication: Shortness of breath; Additional info: Covnathaly PT has central line TECHNIQUE: Imaging protocol: Radiologic exam of the chest. Views: 1 view. COMPARISON: CR XR chest 1V portable [id number] 03/14/2023 2:28 PM FINDINGS: Tubes, catheters and devices: Central line on the right is unchanged or stable with previous exam. Lungs: Opacity left lung base is new from previous exam. Pleural spaces: Slight blunting of the costophrenic angles again noted. This is without significant change with prior exam. No pneumothorax. Heart/Mediastinum: Cardiac size is within normal limits. Diaphragm: Opacity seen in the left lung base at the left diaphragm with today's exam with partial silhouetting of the left diaphragm. Bones/joints: Visualized osseous structures show no acute abnormality. XR/XR chest 1V portable [id number] IMPRESSION: Left basilar opacity with partial silhouetting of the left diaphragm with today's exam suggesting left basilar infiltrate or pneumonia and atelectasis. Slight blunting of the costophrenic angles is unchanged with prior exam and could indicate trace effusion.
--- NOTE | 2023-06-05 19:41 | W.ED.GENADLT ---
HPI - General Adult General: Chief complaint: General Medical Stated complaint: SOB Time Seen by Provider: 06/05/23 19:34 History of Present Illness: 88-year-old female comes in today for complaints of increased shortness of breath. [facility] 2 antigen test. Patient did receive dialysis today. Patient's history includes end-stage renal disease, healing fracture of the left hip, right hip replacement, anxiety with depression, chronic pain syndrome. Patient does have some decubitus ulcers to the sacrum. Patient does live at [facility]. Patient was made a DNR with last admission. Associated symptoms: Reports dyspnea; Deny nausea or vomiting Review of Systems General: Reports: 10 or more systems reviewed and unremarkable except in HPI and below Resp: Reports: dyspnea GI: Reports: diarrhea; Denies: nausea, vomiting or constipation Musc: Reports: joint pain (Left hip pain) Skin/Breast: Reports: lesions PFS ED PFSH: Medical History (Updated 06/05/23 @ 20:53 by PRISCILA Mcgarry) Acetabulum fracture, left Acute GI bleeding Anemia of chronic disease Anemia Anxiety and depression Chronic diarrhea Chronic kidney disease DDD (degenerative disc disease) Decubitus ulcer of buttock Decubitus ulcer of left lower back, stage 2 Decubitus ulcer, buttock, right, unstageable Diastolic CHF DVT (deep venous thrombosis) ESRD (end stage renal disease) ESRD (end stage renal disease) on dialysis Fall Fibromyalgia GERD (gastroesophageal reflux disease) History of breast cancer Previously followed by Dr. Santoyo History of pulmonary embolus (PE) 08/2016 History of stroke 11/14/16 Hyperlipidemia Hypertension Hypoxemic respiratory failure, chronic Incomplete bladder emptying Internal and external bleeding hemorrhoids Leg wound, left Lives in assisted living facility Low BP Lumbar spinal stenosis Non-STEMI (non-ST elevated myocardial infarction) Osteoarthritis Paroxysmal A-fib Peritoneal dialysis catheter in place Recurrent UTI Restrictive lung disease Swelling of both lower extremities Urinary retention Urinary tract infection UTI (urinary tract infection) Surgical History History of back surgery History of esophagogastroduodenoscopy (EGD) 08/03/17 mild gastritis and duodenitis History of hemiarthroplasty of left hip 11/18/18: Dr. Mendoza History of hysterectomy History of lumpectomy of left breast History of right cataract surgery S/P hemodialysis catheter insertion Family History Other Cancer Denies family history of Anesthesia complication Bleeding disorder Social History Second hand smoke exposure: No Alcohol intake: never Substance/Drug Use: never Additional social history: FULL CODE DISCUSSED WITH PATIENT ON 02/04/20 Adopted: No Caregiver/support person: Yes Lives independently: Yes Housing: Assisted Living Facility Marital status: Marital status details: with dementia Physical Exam Const: COMMON NORMALS: alert HENMT: COMMON NORMALS: normocephalic HEAD & SCALP: normocephalic Neck/C-Spine: COMMON NORMALS: full ROM Resp: COMMON NORMALS: normal respiratory effort and clear to auscultation bilaterally AUSCULTATION: clear to auscultation bilaterally Cardio: COMMON NORMALS: regular rate and regular rhythm RATE: regular rate RHYTHM: regular rhythm GI: COMMON NORMALS: Soft to palpation and non-tender PALPATION: Yes Soft to palpation Back/Pelvis: THORACIC SPINE/UPPER BACK: Yes normal to inspection PELVIS: Yes Other pelvic findings (Covered sacral decubitus, clean dressing) COCCYX: Other pelvic findings (Covered sacral decubitus, clean dressing) Neuro: SENSORIUM/ORIENTATION: Yes alert Course Vital Signs: Vital signs: Vital Signs Temperature 99.8 F H 06/05/23 19:33 Pulse Rate 71 06/05/23 19:33 Respiratory Rate 18 06/05/23 19:33 Blood Pressure 163/74 06/05/23 19:33 Pulse Oximetry 90 06/05/23 19:33 Oxygen Delivery Me thod Room Air 06/05/23 19:33 MDM - General Adult Medical Decision Making 88-year-old female comes in today for complaints of of shortness of breath and positive COVID test. Patient resides at a nursing center, [place], and tested positive to COVID today. Patient appears nontoxic. Patient appears in no acute distress. Lungs are coarse but with air movements into the bases. Abdomen soft nontender. Patient is alert and responds to questioning. Patient does have some poor history is only answering 2 out of 3 questions correctly. Patient's caregiver is at bedside. Differential diagnosis includes but not limited to respiratory failure, COVID-19, pneumonia, pleural effusion. Chest x-ray notes some slight haziness in the left lower chairez suggestive of a early infiltrate. Patient also has bilateral effusions. CBC and CMP were unremarkable. Reviewed case with Dr. Mcrae, hospitalist, he believes we can [facility] with her routine oxygen and respiratory treatments and add Levaquin 750 mg every other day for the next week. Patient be given 1 dose here. Patient be monitor for worsening symptoms and return as needed. Patient and family both reported understanding agreed to plan. Lab Data 06/05/23 20:12 06/05/23 20:12 Radiology Impressions Chest X-Ray 06/05/23 19:41 IMPRESSION: Left basilar opacity with partial silhouetting of the left diaphragm with today's exam suggesting left basilar infiltrate or pneumonia and atelectasis. Slight blunting of the costophrenic angles is unchanged with prior exam and could indicate trace effusion. Laboratory Results WBC 4.09 10^3/uL (3.29-11.43) 06/05/23 20:12 RBC 3.42 10^6/uL (3.85-5.65) L 06/05/23 20:12 Hgb 12.00 g/dL (11.27-16.99) 06/05/23 20:12 Hct 39.8 % (36-47) 06/05/23 20:12 MCV 116.4 fl (85-98) H 06/05/23 20:12 MCH 35.1 pg (27-33) H 06/05/23 20:12 MCHC 30.2 g/dL (30-55) 06/05/23 20:12 RDW 17.9 % (12.1-15.1) H 06/05/23 20:12 Plt Count 106 10^3/cmm (157-399) L 06/05/23 20:12 MPV 10.3 fL (7.4-10.4) 06/05/23 20:12 Neut % (Auto) 58.2 % 06/05/23 20:12 Lymph % (Auto) 27.9 % 06/05/23 20:12 Iron % (Auto) 12.0 % 06/05/23 20:12 Eos % (Auto) 1.2 % 06/05/23 20:12 Baso % (Auto) 0.5 % 06/05/23 20:12 Neut # (Auto) 2.38 10^3/uL (1.8-7.7) 06/05/23 20:12 Lymph # (Auto) 1.1 10^3/uL (0.8-4.8) 06/05/23 20:12 Iron # (Auto) 0.5 10^3/uL (0.2-0.9) 06/05/23 20:12 Eos # (Auto) 0.1 10^3/uL (0.0-0.8) 06/05/23 20:12 Baso # (Auto) 0.0 10^3/uL (0.0-0.1) 06/05/23 20:12 Nucleated RBC % (auto) 0 % 06/05/23 20:12 Nucleated RBCs # 0.0 /100WBC 06/05/23 20:12 Sodium 134 mmol/L (136-145) L 06/05/23 20:12 Potassium 4.3 mmol/L (3.5-5.1) 06/05/23 20:12 Chloride 102 mmol/L (98-107) 06/05/23 20:12 Carbon Dioxide 23 mmol/L (22-29) 06/05/23 20:12 Anion Gap 13.3 (5-19) 06/05/23 20:12 BUN 15 mg/dL (8-23) 06/05/23 20:12 Creatinine 2.7 mg/dL (0.5-0.9) H 06/05/23 20:12 GFR Calculation Not Reportable 06/05/23 20:12 Glucose 107 mg/dL (65-115) 06/05/23 20:12 Calculated Osmolality 279 mOsm/kg (285-295) L 06/05/23 20:12 Calcium 8.5 mg/dL (8.5-10.5) 06/05/23 20:12 Total Bilirubin 0.3 mg/dL (0.15-1.2) 06/05/23 20:12 AST 22 U/L (0-32) 06/05/23 20:12 ALT 10 U/L (0-33) 06/05/23 20:12 Alkaline Phosphatase 90 U/L (35-105) 06/05/23 20:12 Total Protein 5.4 g/dL (6.6-8.7) L 06/05/23 20:12 Albumin 2.7 g/dL (3.5-5.2) L 06/05/23 20:12 Globulin 2.7 g/dL (1.3-4.6) 06/05/23 20:12 All radiology interpretation(s) finalized by discharge Discharge Plan Discharge Patient Disposition: Home Clinical Impression: Pneumonia Qualifiers: Pneumonia type: due to unspecified organism Laterality: left Lung location: lower lobe of lung Qualified Code(s): J18.9 - Pneumonia, unspecified organism Condition: Stable Prescriptions: New levofloxacin 750 mg tablet 750 mg PO .qod 7 Days Qty: 4 0RF Rx Instructions: every other day for 7 days No Action acetaminophen [Tylenol] 325 mg tablet 650 mg PO Q4H PRN (Reason: Pain) ipratropium-albuterol 0.5 mg-3 mg(2.5 mg base)/3 mL solution for nebulization 3 ml INHALATION Q4H PRN (Reason: Shortness Of Breath) citalopram [Celexa] 10 mg tablet 10 mg PO DAILY Hold Instructions: Resume on 03/03/23. simethicone [Gas Relief (simethicone)] 80 mg tablet,chewable 80 mg PO DAILY PRN (Reason: abdominal distention) bisacodyl 10 mg suppository 10 mg HI DAILY PRN (Reason: constipation) Rx Instructions: if no bm in 3 days Fleet Enema 19-7 gram/118 mL enema 118 ml HI DAILY PRN (Reason: constipation) cholecalciferol (vitamin D3) [Vitamin D3] 25 mcg (1,000 unit) capsule 25 mcg PO DAILY (DME) elastic bandage 3 bandage See Rx Instructions .Route Rx Instructions: Apply to LLE as needed for swelling and continue to elevate the LE's as needed. lidocaine-prilocaine 2.5-2.5 % cream 1 applic topical .COMPLEX Rx Instructions: apply to L upper arm and wrap with saran wrap prior to dialysis on mon,wed and fri (DME) elastic bandage Bandage See Rx Instructions .Route Rx Instructions: Apply every day to LLE as needed. ondansetron HCl 8 mg tablet 8 mg PO TID PRN (Reason: nausea and vomiting) alprazolam 0.25 mg tablet 0.25 mg PO BID PRN (Reason: Anxiety) 30 Days Qty: 60 5RF hydrocodone-acetaminophen 10-325 mg tablet 1 tab PO Q4H PRN (Reason: Pain) 30 Days Qty: 180 0RF alprazolam 0.5 mg tablet 0.5 mg PO BID 30 Days Qty: 60 5RF Marybel-Eugenio Rx 1-60-300 mg-mg-mcg Tablet 1 tab PO DAILY calcium acetate(phosphat bind) 667 mg tablet 667 mg PO TID tamsulosin [Flomax] 0.4 mg capsule 0.4 mg PO BEDTIME simethicone 125 mg Capsule See Rx Instructions .ROUTE .COMPLEX Rx Instructions: 125mg po after meals and at bedtime as needed for gas polyethylene glycol 3350 17 gram/dose Powder 17 g PO DAILY PRN (Reason: Constipation) sevelamer carbonate 800 mg tablet 800 mg PO TID Xtampza ER 18 mg cap,sprinkl,ER12hr(DONT CRUSH) 18 mg PO BID Hemorrhoidal (witch maia) 50 % Pads, Medicated 1 pad TOPICAL BID PRN (Reason: Hemorrhoids) naloxone 0.4 mg/mL Solution See Rx Instructions .ROUTE .COMPLEX Rx Instructions: im in deltoid or thigh may repeat every 3-5 minutes for 3 doses and call 911 if no response loperamide 2 mg Tablet 2 mg PO Q8H PRN (Reason: Diarrhea) diphenoxylate-atropine [Lomotil] 2.5-0.025 mg tablet 1 tab PO QID PRN (Reason: Diarrhea) potassium chloride 20 mEq tablet extended release 20 meq PO DAILY Qty: 30 0RF magnesium oxide 400 mg magnesium capsule 400 mg PO BID Qty: 30 0RF Discharge Orders: Discharge ED (Routine); Ordered 06/05/23 Ordered By: Cb Quiroz Referrals: Soren Waters DO [Primary Care Provider] - Discharge Diet: Usual diet Discharge Activity: Increase activity as tolerated Patient Instructions: Pneumonia (ED) Activity Restrictions/Additional Instructions: Continue oxygen and respiratory treatments at nursing care center. Follow-up with primary care in 1 week for recheck. Return to ED for worsening symptoms. Coding Level of Care Code ED [place] Converter Operator for Alyson Abdullahi
[2023-06-05 20:28] LABS: Basophils % 0.5 %; Eosinophils # 0.1 10^3/uL (0.0-0.8); Eosinophils % 1.2 %; Hematocrit 39.8 % (36-47); Lymphocytes # 1.1 10^3/uL (0.8-4.8); Lymphocytes % 27.9 %; Mean Corpuscular HGB Conc 30.2 g/dL (30-55); Mean Corpuscular Hemoglobin 35.1 pg (27-33); Mean Corpuscular Volume 116.4 fl (85-98); Mean Platelet Volume 10.3 fL (7.4-10.4); Monocytes # 0.5 10^3/uL (0.2-0.9); Neutrophils # 2.38 10^3/uL (1.8-7.7); Neutrophils % 58.2 %; Nucleated Red Blood Cells % 0 %; Platelet Count 106 10^3/cmm (157-399); Red Blood Count 3.42 10^6/uL (3.85-5.65); Red Cell Distribution Width 17.9 % (12.1-15.1); White Blood Count 4.09 10^3/uL (3.29-11.43)
[2023-06-05 20:43] LABS: Alanine Aminotransferase 10 U/L (0-33); Albumin Level 2.7 g/dL (3.5-5.2); Alkaline Phosphatase 90 U/L (35-105); Anion Gap 13.3 (5-19); Aspartate Amino Transferase 22 U/L (0-32); Blood Urea Nitrogen 15 mg/dL (8-23); Calcium 8.5 mg/dL (8.5-10.5); Carbon Dioxide 23 mmol/L (22-29); Chloride 102 mmol/L (98-107); Globulin 2.7 g/dL (1.3-4.6); Glucose 107 mg/dL (65-115); Osmolality Calculated 279 mOsm/kg (285-295); Potassium 4.3 mmol/L (3.5-5.1); Sodium 134 mmol/L (136-145); Total Bilirubin 0.3 mg/dL (0.15-1.2); Total Protein 5.4 g/dL (6.6-8.7)
[2023-06-05] MEDS: levoFLOXacin 750 mg Tablet PO (21:45)
== END 2023-06-05 21:50 | disposition home or self-care (01) ==
PROVIDERS: Emergency Provider Nurse Practitioner Family; PCP Family Medicine
DX: J18.9 Pneumonia, unspecified organism (principal); I13.2 Hypertensive heart and chronic kidney disease with heart failure and with stage 5 chronic kidney disease, or end stage renal disease; N18.6 End stage renal disease; I50.9 Heart failure, unspecified; Z85.3 Personal history of malignant neoplasm of breast; Z86.73 Personal history of transient ischemic attack (TIA), and cerebral infarction without residual deficits; E78.5 Hyperlipidemia, unspecified; I25.2 Old myocardial infarction
CPT/HCPCS: 36415; 71045; 80053; 85025; 99284

== ENCOUNTER 2023-07-28 12:21 | Emergency (ER) | payer MEDICARE, OTHER, SELFPAY ==
[2023-07-28 12:28] VITALS: BP 175/74; PULSE 92; RESP 18; TEMP 37.5; O2SAT 97
--- NOTE | 2023-07-28 12:39 | PC.PHAR ---
PT IS FROM [facility] 07/28/23
--- NOTE | 2023-07-28 12:43 | CT_ITS ---
WS: [id number] CT ABDOMEN AND PELVIS NONCONTRAST HISTORY: abd pain TECHNIQUE: Imaging performed through the abdomen and pelvis. Coronal and sagittal reformats are submi tted. All CT scans at [facility] use at least one of these dose optimization techniques: auto mated exposure control; mA and/or kV adjustment per patient size (includes targeted exams where dose is matched to clinical indication); or iterative reconstruction. DLP: 457.70 mGy.cm COMPARISON: 01/01/2022 Lower thorax: Mild dependent changes at the lung bases with atelectasis and small bilateral pleural e ffusions. Moderate cardiomegaly. Liver: Normal size liver. No mass or bile duct dilatation. Gallbladder: Normal gallbladder. No pericholecystic fluid or cholelithiasis. No gallbladder wall thic kening. Pancreas: Atrophied. Pancreas is poorly visualized within its entirety. Similar to the prior study. Spleen: Normal. Adrenal glands: Normal. No mass. Right kidney: Diffuse atrophy. No obstruction. Exophytic mass in the lower pole measures 11 mm. Not s ignificantly changed since the prior study. Left kidney: Diffuse atrophy with a lobulated cortex. Aorta: Mild atherosclerosis abdominal aorta with no aneurysm. No free fluid, intraperitoneal air or significant lymphadenopathy. GI tract: Mild distention of the stomach with fluid and air. No small bowel obstruction. There is ext ensive fecal retention and constipation. Severe dilatation and enlargement of the rectosigmoid region with perirectal soft tissue edema and wall thickening. Abdominal wall: There is marked soft tissue anasarca. There is increased fluid in the along the depen dent portions of the abdominal wall and pelvis. Pelvis: Soft tissue edema. Marked constipation and obstipation with distended rectum. Osseous structures: Posterior lumbar fusion L4-S1. Severe osteopenia. IMPRESSION: 1. Severe obstipation/impaction with marked dilatation of the rectum. 2. Diffuse rectal wall thickening probably due to proctitis. 3. Diffuse soft tissue edema and anasarca. 4. Small bilateral pleural effusions and bibasilar atelectasis. 5. Cardiomegaly. 6. No free air. 7. Bilateral renal atrophy.
--- NOTE | 2023-07-28 12:43 | XR_ITS ---
WS: [id number] Exam: XR chest 1V portable [id number] Date/Time of Exam: 07/28/2023 12:43 PM Reason For Exam: sob Comparison 06/05/2023. Bibasal plaque atelectasis. Small LEFT basal pleural effusion. Heart size is top limits normal. The m ediastinum is normal in contour. A double lumen right-sided dialysis catheter appears to be in satisf actory position ending near the distal superior vena cava and cavoatrial junction. Bony structures ar e intact. IMPRESSION: 1. Bibasal plaque atelectasis. Small LEFT pleural effusion. 2. Mildly increased pulmonary vascularity which appears to be chronic.
--- NOTE | 2023-07-28 12:44 | W.ED.GENADLT ---
HPI - General Adult General: Chief complaint: General Medical Stated complaint: sob Time Seen by Provider: 07/28/23 12:22 Source: patient and EMS Mode of arrival: EMS Limitations: no limitations History of Present Illness: This patient was transferred ported to the emergency department from the assisted living facility. The patient apparently takes hydrocodone on a scheduled basis for generalized pain. She has had issues with increasing pain in her perineum and buttock region as well as no bowel movements for the past several days. She states that she occasionally has some loose stools. She denies any known blood in her stools. She does take a bowel regimen. She denies any fevers or chills. She denies any vomiting or diarrhea. There is some question whether she had increased oxygen requirement over the past few days as well but she denies any chest pain or shortness of breath. Location: buttocks Associated symptoms: Deny chest pain, dyspnea, headache(s), nausea, rash, palpitations or vomiting Review of Systems Const: Denies: fever(s) or chills Eyes: Denies: change in vision ENMT: Denies: throat pain, odynophagia, nasal discharge or nasal congestion Card: Denies: chest pain, palpitations or irregular heart rhythm Resp: Denies: dyspnea, productive cough or non-productive cough GI: Reports: constipation and change in bowel habits; Denies: abdominal pain, nausea, vomiting, hematochezia or melena : Reports: oliguria (Chronic renal failure on dialysis); Denies: flank pain Skin/Breast: Reports: pruritus and erythema; Denies: rash Neuro: Denies: headache(s), numbness in extremities or weakness in extremities Tino/Lymph: Reports: easy bruising PFS ED PFSH: Medical History Anemia Decubitus ulcer of left lower back, stage 2 DVT (deep venous thrombosis) Acute GI bleeding Chronic kidney disease Leg wound, left Non-STEMI (non-ST elevated myocardial infarction) ESRD (end stage renal disease) on dialysis Low BP Urinary tract infection Fall Acetabulum fracture, left Decubitus ulcer of buttock Hypoxemic respiratory failure, chronic Chronic diarrhea UTI (urinary tract infection) Lives in assisted living facility Swelling of both lower extremities Decubitus ulcer, buttock, right, unstageable Internal and external bleeding hemorrhoids Urinary retention Recurrent UTI Incomplete bladder emptying Restrictive lung disease Paroxysmal A-fib Anxiety and depression History of pulmonary embolus (PE) 08/2016 Lumbar spinal stenosis Fibromyalgia Hyperlipidemia History of breast cancer Previously followed by Dr. Santoyo Diastolic CHF ESRD (end stage renal disease) Peritoneal dialysis catheter in place Osteoarthritis DDD (degenerative disc disease) Hypertension GERD (gastroesophageal reflux disease) Anemia of chronic disease History of stroke 11/14/16 Surgical History S/P hemodialysis catheter insertion History of esophagogastroduodenoscopy (EGD) 08/03/17 mild gastritis and duodenitis History of hemiarthroplasty of left hip 11/18/18: Dr. Mendoza History of back surgery History of lumpectomy of left breast History of right cataract surgery History of hysterectomy Family History Other Cancer Denies family history of Anesthesia complication Bleeding disorder Social History Second hand smoke exposure: No Alcohol intake: never Substance/Drug Use: never Additional social history: FULL CODE DISCUSSED WITH PATIENT ON 02/04/20 Adopted: No Caregiver/support person: Yes Lives independently: Yes Housing: Assisted Living Facility Marital status: Marital status details: with dementia Physical Exam Narrative: EXAM NARRATIVE: She is a thin elderly female who makes good eye contact and answers questions but appears to be uncomfortable. Const: COMMON NORMALS: no acute distress and alert GENERAL APPEARANCE: cooperative NUTRITIONAL APPEARANCE: thin ORIENTATION/CONSCIOUSNESS: Yes awake, Yes oriented to person and Yes oriented to place HENMT: COMMON NORMALS: normocephalic, Normal nasal mucous membranes and turbinates present and moist oral mucous membranes HEAD & SCALP: normocephalic NOSE: Normal nasal mucous membranes and turbinates present Eye: COMMON NORMALS: Equal, round and reactive pupils present, EOMs intact bilaterally and conjunctivae normal CONJUNCTIVA: Yes conjunctivae normal PUPIL: Yes Equal, round and reactive pupils present Neck/C-Spine: COMMON NORMALS: full ROM, no lymphadenopathy and no JVD Chest: COMMONS NORMALS: normal inspection of the chest OTHER: He has a dialysis port in her right upper chest Resp: COMMON NORMALS: normal respiratory effort, No retractions, No use of accessory muscles and clear to auscultation bilaterally AUSCULTATION: clear to auscultation bilaterally and diminished lung sounds Cardio: COMMON NORMALS: no JVD, regular rate, regular rhythm, No murmurs present (Cardio) and Peripheral pulses 2+ throughout RATE: regular rate RHYTHM: regular rhythm PERIPHERAL PULSES: Peripheral pulses 2+ throughout GI: COMMON NORMALS: Normal to inspection, nondistended, normoactive bowel sounds present, Soft to palpation and non-tender PALPATION: Yes Soft to palpation RECTAL EXAM: normal sphincter tone and fecal impaction OTHER: She has a small skin fissure approximately 4 to 5 cm distal to the rectum. There is no erythema or drainage. Total examination reveals a marked amount of stool within the rectal vault. Manual disimpaction was undertaken and a large amount of stool was removed but there is still some residual soft stool. There was some blood on examining finger after the disimpaction but there is no active bleeding or evidence of hemorrhoids etc. : COMMON NORMALS: Yes no CVA tenderness BLADDER/KIDNEY EXAM: Yes no CVA tenderness Back/Pelvis: COMMON NORMALS: no CVA tenderness, thoracic and lumbar spine normal to inspection, no thoracic nor lumbar tenderness and thoraco-lumbar ROM normal Extremity: COMMON NORMALS: full ROM, capillary refill normal, no calf tenderness and no pedal edema Neuro: COMMON NORMALS: moves all extremities and no focal motor deficits SENSORIUM/ORIENTATION: Yes alert, Yes oriented to person and Yes oriented to place CRANIAL NERVES: Yes CN normal except as noted Psych: COMMON NORMALS: mental status grossly normal Skin: NARRATIVE SKIN EXAM: She has decreased skin turgor. She has multiple areas of ecchymosis on the extremities. Course Reevaluation(s): Reevaluation #1: Patient was reevaluated. She subjectively states she is feeling better. No new or focal findings on repeat examination otherwise. 2 of the patient's daughters are present and we had a long and detailed discussion about her condition. She has multifactorial issues contributing to her chronic constipation to include decreased activity, age, opiate dependence, poor fluid intake and chronic renal failure. She also has had a secondary effect of constipation and that she retains urine and gets repeat Pineda urinary tract infections. We discussed potential therapeutic options and given that her use of opiates is at 10 mg every 4 hours as needed likely she is exceeding her receptor threshold and would do just as well with half that dose and perhaps reduce her GI effects. We also need to ensure that she gets her propylene glycol twice daily to help reduce constipation issues. In the short-term we will going to place her on mineral oil twice daily to help clean her out and then back on her regular bowel regimen. I cautioned the family on long-term use of the mineral oil as it reduces fat-soluble vitamin absorption. Will also place her empirically on a cephalosporin for her urinary tract infection pending culture. The family has arranged dialysis for 9:30 in the morning and I think that is appropriate she does not need emergent dialysis as her potassium is in the normal range at this time. She does not display any other signs of concern such as bowel obstruction etc. and I think can be effectively managed as an outpatient with return precautions considered and discussed. It seems that much of her chronic pain is nonspecific but possibly related to osteoarthritis as well as a prior diagnosis of fibromyalgia. Time: 15:15 Vital Signs: Vital signs: Vital Signs Temperature 99.5 F 07/28/23 12:28 Pulse Rate 92 07/28/23 12:28 Respiratory Rate 18 07/28/23 12:28 Blood Pressure 175/74 07/28/23 12:28 Pulse Oximetry 97 07/28/23 12:28 Oxygen Delivery Me thod Nasal Cannula 07/28/23 12:28 Oxygen Flow Rate 3 07/28/23 12:28 [facility] - General Adult Medical Decision Making This patient was transported from the her assisted living because of complaints of lower abdominal discomfort decreased stooling and generalized unwell feeling. Initial evaluation in the emergency department revealed her to have reassuring vital signs other than mild hypertension her clinical examination in the field revealed her to be alert. Her chest was unremarkable for any respiratory distress she had some diminished breath sounds at the bases but otherwise clear lungs. Her cardiovascular Gilberto is regular without murmur or JVD. Her abdominal examination was soft without any rebound or guarding or peritoneal signs. Her rectal examination revealed marked amount of stool and a manual disimpaction was undertaken removing much of the compacted and impacted stool in her rectum. Imaging was obtained which was reassuring reviewed which revealed fecal impaction constipation however there is no bowel obstruction or any other acute pathology. Her chest x-ray was also reassuring. Laboratories noted evidence of chronic renal failure but normal potassium. Her urinalysis on a catheterized specimen revealed evidence of urinary tract infection. Subsequent reevaluation reveals her to be improved likely related to partial disimpaction as well as a relievable of contained urine with her catheterization. The this is likely due to her chronic constipation and its impact on her urinary bladder. Prolonged discussion with the family regarding much of her conditions and changes in her regimen that could improve her resulted in plan of care outlined in the chart. She is being treated for urinary tract infection decreasing her opiates as well as changing her bowel regimen temporarily to relieve her constipation. Her dialysis is planned for the following morning and this is suitable given that her potassium is in normal range. Family and the patient was satisfied with the plan were appreciative of care and she is being discharged in stable condition with return precautions discussed. Medical Records I reviewed the patient's medical records. Lab Data I reviewed the patient's lab results. 07/28/23 12:20 07/28/23 12:20 Laboratory Results WBC 5.85 10^3/uL (3.29-11.43) 07/28/23 12:20 RBC 2.90 10^6/uL (3.85-5.65) L 07/28/23 12:20 Hgb 10.00 g/dL (11.27-16.99) L 07/28/23 12:20 Hct 32.9 % (36-47) L 07/28/23 12:20 MCV 113.4 fl (85-98) H 07/28/23 12:20 MCH 34.5 pg (27-33) H 07/28/23 12:20 MCHC 30.4 g/dL (30-55) 07/28/23 12:20 RDW 15.2 % (12.1-15.1) H 07/28/23 12:20 Plt Count 158 10^3/cmm (157-399) 07/28/23 12:20 MPV 9.6 fL (7.4-10.4) 07/28/23 12:20 Neut % (Auto) 64.5 % 07/28/23 12:20 Lymph % (Auto) 22.9 % 07/28/23 12:20 [place] % (Auto) 9.1 % 07/28/23 12:20 Eos % (Auto) 3.1 % 07/28/23 12:20 Baso % (Auto) 0.2 % 07/28/23 12:20 Neut # (Auto) 3.78 10^3/uL (1.8-7.7) 07/28/23 12:20 Lymph # (Auto) 1.3 10^3/uL (0.8-4.8) 07/28/23 12:20 [place] # (Auto) 0.5 10^3/uL (0.2-0.9) 07/28/23 12:20 Eos # (Auto) 0.2 10^3/uL (0.0-0.8) 07/28/23 12:20 Baso # (Auto) 0.0 10^3/uL (0.0-0.1) 07/28/23 12:20 Nucleated RBC % (auto) 0 % 07/28/23 12:20 Nucleated RBCs # 0.0 /100WBC 07/28/23 12:20 Sodium 137 mmol/L (136-145) 07/28/23 12:20 Potassium 4.6 mmol/L (3.5-5.1) 07/28/23 12:20 Chloride 99 mmol/L (98-107) 07/28/23 12:20 Carbon Dioxide 30 mmol/L (22-29) H 07/28/23 12:20 Anion Gap 12.6 (5-19) 07/28/23 12:20 BUN 43 mg/dL (8-23) H 07/28/23 12:20 Creatinine 6.0 mg/dL (0.5-0.9) H* 07/28/23 12:20 GFR Calculation Not Reportable 07/28/23 12:20 Glucose 131 mg/dL (65-115) H 07/28/23 12:20 Calculated Osmolality 297 mOsm/kg (285-295) H 07/28/23 12:20 Calcium 9.9 mg/dL (8.5-10.5) 07/28/23 12:20 Total Bilirubin 0.2 mg/dL (0.15-1.2) 07/28/23 12:20 AST 16 U/L (0-32) 07/28/23 12:20 ALT 8 U/L (0-33) 07/28/23 12:20 Alkaline Phosphatase 84 U/L (35-105) 07/28/23 12:20 Total Protein 5.7 g/dL (6.6-8.7) L 07/28/23 12:20 Albumin 2.9 g/dL (3.5-5.2) L 07/28/23 12:20 Globulin 2.8 g/dL (1.3-4.6) 07/28/23 12:20 Urine Color Yellow (Yellow) 07/28/23 14:22 Urine Appearance Cloudy (CLEAR) A 07/28/23 14:22 Urine pH 7 (5-7) 07/28/23 14:22 Ur Specific [place] 1.010 (1.005-1.030) 07/28/23 14:22 Urine Protein 3+ (Negative) H 07/28/23 14:22 Urine Glucose (UA) Norm (Normal) 07/28/23 14:22 Urine Ketones Negative (Negative) 07/28/23 14:22 Urine Blood 2+ (Negative) H 07/28/23 14:22 Urine Nitrate Negative (Negative) 07/28/23 14:22 Urine Bilirubin 1+ (Negative) H 07/28/23 14:22 Urine Urobilinogen Neg mg/dL (Negative) 07/28/23 14:22 Ur Leukocyte Esterase 2+ (Negative) H 07/28/23 14:22 Urine RBC >100 /hpf (0-2) H 07/28/23 14:22 Urine WBC >100 /hpf (0-5) H 07/28/23 14:22 Ur Squamous Epith Cells 0-4 /hpf (0-5) H 07/28/23 14:22 Amorphous Sediment Not Reportable 07/28/23 14:22 Urine Bacteria 1+ /hpf (NONE) H 07/28/23 14:22 All radiology interpretation(s) finalized by discharge EKG Data EKG 1: I personally reviewed and interpreted this EKG as follows: Interpretation: Contemporaneous review of resting EKG reveals a ventricular rate of 86 bpm. Prolonged IA interval of 264 ms. She has a normal QRS duration and corrected normal corrected QT interval. Normal axis. No acute ST-T wave changes consistent with a first-degree AV block. This tracing is consistent with numerous other EKGs we have on file. Discharge Plan Discharge Patient Disposition: Home Clinical Impression: ESRD (end stage renal disease), Chronic constipation Urinary tract infection Qualifiers: Urinary tract infection type: site unspecified Hematuria presence: without hematuria Qualified Code(s): N39.0 - Urinary tract infection, site not specified Chronic pain Qualifiers: Chronic pain type: chronic pain syndrome Qualified Code(s): G89.4 - Chronic pain syndrome Condition: Stable Prescriptions: New cephalexin 500 mg capsule 500 mg PO TID 7 Days Qty: 21 0RF No Action acetaminophen [Tylenol] 325 mg tablet 650 mg PO Q4H PRN (Reason: Pain) ipratropium-albuterol 0.5 mg-3 mg(2.5 mg base)/3 mL solution for nebulization 3 ml INHALATION Q4H PRN (Reason: Shortness Of Breath) citalopram [Celexa] 10 mg tablet 10 mg PO DAILY Hold Instructions: Resume on 03/03/23. bisacodyl 10 mg suppository 10 mg IA DAILY PRN (Reason: constipation) Rx Instructions: if no bm in 3 days cholecalciferol (vitamin D3) [Vitamin D3] 25 mcg (1,000 unit) capsule 25 mcg PO DAILY (DME) elastic bandage 3 bandage See Rx Instructions .Route Rx Instructions: Apply to LLE as needed for swelling and continue to elevate the LE's as needed. (DME) elastic bandage Bandage See Rx Instructions .Route Rx Instructions: Apply every day to LLE as needed. ondansetron HCl 8 mg tablet 8 mg PO TID PRN (Reason: nausea and vomiting) alprazolam 0.25 mg tablet 0.25 mg PO BID PRN (Reason: Anxiety) 30 Days Qty: 60 5RF Xtampza ER 18 mg cap,sprinkl,ER12hr(DONT CRUSH) 18 mg PO BID 30 Days Qty: 60 0RF hydrocodone-acetaminophen 10-325 mg tablet 1 tab PO Q4H PRN (Reason: Pain) 30 Days Qty: 180 0RF Marybel-Eugenio Rx 1-60-300 mg-mg-mcg Tablet 1 tab PO DAILY calcium acetate(phosphat bind) 667 mg tablet 667 mg PO TID tamsulosin [Flomax] 0.4 mg capsule 0.4 mg PO BEDTIME trazodone 50 mg tablet 25 mg PO BEDTIME Carafate 100 mg/mL suspension 10 ml PO QID pantoprazole 40 mg tablet,delayed release (DR/EC) 40 mg PO BID isosorbide mononitrate 10 mg tablet 10 mg PO QPM Refresh 1 % Drops, Liquid Gel 1 drp OPHTHALMIC (EYE) QID PRN (Reason: Dry Eyes) mirtazapine 7.5 mg tablet 7.5 mg PO BEDTIME albuterol sulfate 90 mcg/actuation Hfa Aerosol Inhaler 1 - 2 inh INHALATION QID PRN (Reason: Shortness Of Breath) polyethylene glycol 3350 17 gram/dose Powder 17 g PO DAILY PRN (Reason: Constipation) sevelamer carbonate 800 mg tablet 800 mg PO TID Hemorrhoidal (witch maia) 50 % Pads, Medicated 1 pad TOPICAL BID PRN (Reason: Hemorrhoids) loperamide 2 mg Tablet 2 mg PO Q8H PRN (Reason: Diarrhea) diphenoxylate-atropine [Lomotil] 2.5-0.025 mg tablet 1 tab PO QID PRN (Reason: Diarrhea) magnesium oxide 400 mg magnesium capsule 400 mg PO BID Qty: 30 0RF Discharge Orders: Discharge ED (Routine); Ordered 07/28/23 Ordered By: Marcelo Brewer Referrals: Soren Waters DO [Primary Care Provider] - 1 week Discharge Diet: Usual diet Discharge Activity: Resume usual activity Patient Instructions: Opioid Safety, Pain Management Activity Restrictions/Additional Instructions: Evaluation in the emergency department discovered that she has significant constipation as well as a urinary tract infection but no evidence of bowel obstruction pneumonia or other serious conditions that would require further inpatient therapy at this time As we discussed we are making the following recommendations: Start giving her 1 tablespoon of mineral oil twice daily to help correct her constipation. Once she is having normal stools you may switch back to her usual propylene glycol twice daily. We are reducing her hydrocodone dose to 5 mg of hydrocodone in the interval should be no sooner than every 8 hours as needed. We have prescribed a antibiotic to take for the next week for her urinary tract infection. If the culture dictates that we need to switch her antibiotics we shall do so. She is to get dialysis in the morning as scheduled at 930. If it anytime she has worsening symptoms you are welcome to return her back to the emergency department for reevaluation. Coding Level of Care Code ED Distributor Cleaner for Alyson Abdullahi
--- NOTE | 2023-07-28 12:47 | ECG_ITS ---
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 Measurements Intervals [place] Rate: 86 P: 27 VA: 264 QRS: 21 QRSD: 97 T: 30 QT: 378 QTc: 453 Interpretive Statements SINUS RHYTHM WITH FIRST DEGREE AV BLOCK Compared to ECG 03/10/2023 05:45:05 No significant changes Electronically Signed On 07-28-2023 16:33:32 ARTIFICIAL LEATHER CALENDER OPERATOR by Cristhian Harden M.D. [email or web address]
[2023-07-28] MEDS: sodium chloride 0.9% 500 ML IV (12:52)
[2023-07-28 12:55] LABS: Basophils % 0.2 %; Eosinophils # 0.2 10^3/uL (0.0-0.8); Eosinophils % 3.1 %; Hematocrit 32.9 % (36-47); Lymphocytes # 1.3 10^3/uL (0.8-4.8); Lymphocytes % 22.9 %; Mean Corpuscular HGB Conc 30.4 g/dL (30-55); Mean Corpuscular Hemoglobin 34.5 pg (27-33); Mean Corpuscular Volume 113.4 fl (85-98); Mean Platelet Volume 9.6 fL (7.4-10.4); Monocytes # 0.5 10^3/uL (0.2-0.9); Monocytes % 9.1 %; Neutrophils # 3.78 10^3/uL (1.8-7.7); Neutrophils % 64.5 %; Nucleated Red Blood Cells % 0 %; Platelet Count 158 10^3/cmm (157-399); Red Cell Distribution Width 15.2 % (12.1-15.1); White Blood Count 5.85 10^3/uL (3.29-11.43)
[2023-07-28 13:16] LABS: Alanine Aminotransferase 8 U/L (0-33); Albumin Level 2.9 g/dL (3.5-5.2); Alkaline Phosphatase 84 U/L (35-105); Anion Gap 12.6 (5-19); Aspartate Amino Transferase 16 U/L (0-32); Blood Urea Nitrogen 43 mg/dL (8-23); Calcium 9.9 mg/dL (8.5-10.5); Carbon Dioxide 30 mmol/L (22-29); Chloride 99 mmol/L (98-107); Globulin 2.8 g/dL (1.3-4.6); Glucose 131 mg/dL (65-115); Osmolality Calculated 297 mOsm/kg (285-295); Potassium 4.6 mmol/L (3.5-5.1); Sodium 137 mmol/L (136-145); Total Bilirubin 0.2 mg/dL (0.15-1.2); Total Protein 5.7 g/dL (6.6-8.7)
[2023-07-28 14:41] LABS: Bilirubin Urine 1+ (Negative); Blood Urine 2+ (Negative); Glucose Urine UA Norm (Normal); Ketones Urine Negative (Negative); Nitrate Urine Negative (Negative); Protein Urine 3+ (Negative); Urine Appearance Cloudy (CLEAR); Urine Color Yellow (Yellow); Urobilinogen Urine Neg (Negative); pH Urine 7 (5-7)
[2023-07-28 14:42] LABS: Add Urine Microscopic? YES; Leukocyte Esterase Urine 2+ (Negative)
[2023-07-28 14:43] LABS: RBC Urine >100 /hpf (0-2); Squamous Epithelial Cell Urine 0-4 /hpf (0-5); WBC Urine >100 /hpf (0-5)
[2023-07-28 14:44] LABS: Add Urine Culture? Yes; Bacteria Urine 1+ /hpf
[2023-07-28 15:00] VITALS: BP 147/70; PULSE 91; O2SAT 95
[2023-07-28] MEDS: cephALEXin 500 mg Capsule PO (15:41)
[2023-07-28 16:22] VITALS: BP 159/74; PULSE 89; O2SAT 92
== END 2023-07-28 16:05 | disposition home or self-care (01) ==
PROVIDERS: Emergency Provider Emergency Medicine; PCP Family Medicine
DX: N39.0 Urinary tract infection, site not specified (principal); K59.09 Other constipation; G89.4 Chronic pain syndrome; I13.2 Hypertensive heart and chronic kidney disease with heart failure and with stage 5 chronic kidney disease, or end stage renal disease; N18.6 End stage renal disease; I50.9 Heart failure, unspecified; Z99.2 Dependence on renal dialysis; I25.2 Old myocardial infarction; E78.5 Hyperlipidemia, unspecified; Z85.3 Personal history of malignant neoplasm of breast; Z86.73 Personal history of transient ischemic attack (TIA), and cerebral infarction without residual deficits
CPT/HCPCS: 51701; 71045; 74176; 80053; 81001; 85025; 87077; 87086; 87186; 93005; 96360; 96361; 99285; J7040

== ENCOUNTER 2023-07-31 16:19 | Emergency (ER) | payer MEDICARE, OTHER, SELFPAY ==
[2023-07-31 16:25] VITALS: BP 133/60; PULSE 99; O2SAT 95; BMI 19.2
--- NOTE | 2023-07-31 16:32 | ED_ITS ---
HPI - Altered Mental Status 2 General: Chief Complaint: Altered Mental Status Stated Complaint: AMS Time Seen by Provider: 07/31/23 16:31 History of Present Illness: 88-year-old female presents to the emerg ency department from [facility] via EMS personnel. EMS personnel states that the [facility] facility staff and family feel that the patient is been more confused. The patient is alert to name and birthdate and is able to follow commands appropriately. She does have a longstanding history of dementia. She is recently been diagnosed and treated approximately 4 days ago for urinary tract infection. She was seen here in this emergency department on 07/28/2023 for severe obstipation requiring digital disimpaction. The patient does not appear to be in any acute distress at present it does appear that she is at her baseline. Review of Systems 2 General: Reports: ROS unobtainable due to mental status [facility] ED 2 PFSH: Medical History Anemia Decubitus ulcer of left lower back, stage 2 DVT (deep venous thrombosis) Acute GI bleeding Chronic kidney disease Leg wound, left Non-STEMI (non-ST elevated myocardial infarction) ESRD (end stage renal disease) on dialysis Low BP Urinary tract infection Fall Acetabulum fracture, left Decubitus ulcer of buttock Hypoxemic respiratory failure, chronic Chronic diarrhea UTI (urinary tract infection) Lives in assisted living facility Swelling of both lower extremities Decubitus ulcer, buttock, right, unstageable Internal and external bleeding hemorrhoids Urinary retention Recurrent UTI Incomplete bladder emptying Restrictive lung disease Paroxysmal A-fib Anxiety and depression History of pulmonary embolus (PE) 08/2016 Lumbar spinal stenosis Fibromyalgia Hyperlipidemia History of breast cancer Previously followed by Dr. Santoyo Diastolic CHF ESRD (end stage renal disease) Peritoneal dialysis catheter in place Osteoarthritis DDD (degenerative disc disease) Hypertension GERD (gastroesophageal reflux disease) Anemia of chronic disease History of stroke 11/14/16 Surgical History S/P hemodialysis catheter insertion History of esophagogastroduodenoscopy (EGD) 08/03/17 mild gastritis and duodenitis History of hemiarthroplasty of left hip 11/18/18: Dr. Mendoza History of back surgery History of lumpectomy of left breast History of right cataract surgery History of hysterectomy Family History Other Cancer Denies family history of Anesthesia complication Bleeding disorder Social History Second hand smoke exposure: No Alcohol intake: never Substance/Drug Use: never Additional social history: FULL CODE DISCUSSED WITH PATIENT ON 02/04/20 Adopted: No Caregiver/support person: Yes Lives independently: Yes Housing: Assisted Living Facility Marital status: Marital status details: with dementia Physical Exam 2 Narrative: Constitutional: the patient appears well nourished and of normal development. Vital signs as documented. No acute distress at present. Alert and oriented-to person and place. She does have a longstanding history of dementia and does appear pleasantly confused. This does appear to be her baseline mental status. Head, eyes, ears, nose, mouth, throat: Normocephalic, atraumatic. Pupils-equal, round, reactive to light. No scleral icterus. Normal-appearing external ears. Normal appearing nasal turbinates, no drainage. No obvious oral lesions. Neck: Supple, trachea is midline, no lymphadenopathy, no jugular venous distension, thyromegaly, or carotid bruits. Carotid upstrokes are brisk bilaterally. Lungs: clear to auscultation to all lung chairez, although diminished bilaterally in the bases secondary to exaggerated kyphosis and body habitus. She is chronically on 4 L nasal cannula supplemental oxygen. Symmetrical rise and fall of chest, no obvious signs of increased work of breathing at present. Cardiac: Regular rate and rhythm, positive S1, S2. No murmurs, rubs or gallops that I can appreciate Abdomen: Soft, non-tender to palpation, normal active bowel sounds to all quadrants. No palpable masses, no organomegaly and abdominal bruits. Extremities: 2+ pulses in the upper extremities that are equal bilaterally, 2+ pulses in the lower extremities that are equal bilaterally. Non-edematous. Moves all extremities well, sensation to all extremities are noted. Skin: Warm, dry, intact. Neuro: Alert and oriented x 2-person, place. Underlying longstanding dementia, patient does appear to be at her baseline mental status. Course 2 Vital Signs: Vital signs: Vital Signs Pulse Rate 99 07/31/23 16:25 Blood Pressure 129/56 07/31/23 18:30 Pulse Oximetry 97 07/31/23 18:30 Oxygen Delivery Me thod Nasal Cannula 07/31/23 16:25 Oxygen Flow Rate 4 07/31/23 16:25 MDM - Altered Mental Status Medical Decision Making 88-year-old female who was seen recently here in the emergency department for obstipation and disimpaction resents today with long-term care facility nursing staff concerns of increased confusion. Patient does have a longstanding history of chronic pain and does take hydrocodone pain medication which is recently resulted and severe obstipation requiring digital disimpaction. She is also recently been treated for a urinary tract infection. I will obtain laboratory evaluation to include a CBC, CMP chest x-ray and repeat urinalysis. She does have chronic renal disease with chronically elevated BUN and creatinine. Medical Records I reviewed the patient's medical records. Lab Data I reviewed the patient's lab results. 07/31/23 16:57 07/31/23 16:57 Radiology Impressions Chest X-Ray 07/31/23 16:39 IMPRESSION: No significant change. Laboratory Results WBC 5.46 10^3/uL (3.29-11.43) 07/31/23 16:57 RBC 2.85 10^6/uL (3.85-5.65) L 07/31/23 16:57 Hgb 9.80 g/dL (11.27-16.99) L 07/31/23 16:57 Hct 32.5 % (36-47) L 07/31/23 16:57 MCV 114.0 fl (85-98) H 07/31/23 16:57 MCH 34.4 pg (27-33) H 07/31/23 16:57 MCHC 30.2 g/dL (30-55) 07/31/23 16:57 RDW 14.7 % (12.1-15.1) 07/31/23 16:57 Plt Count 135 10^3/cmm (157-399) L 07/31/23 16:57 MPV 9.7 fL (7.4-10.4) 07/31/23 16:57 Neut % (Auto) 73.0 % 07/31/23 16:57 Lymph % (Auto) 13.6 % 07/31/23 16:57 Orange % (Auto) 9.2 % 07/31/23 16:57 Eos % (Auto) 3.1 % 07/31/23 16:57 Baso % (Auto) 0.9 % 07/31/23 16:57 Neut # (Auto) 3.99 10^3/uL (1.8-7.7) 07/31/23 16:57 Lymph # (Auto) 0.7 10^3/uL (0.8-4.8) L 07/31/23 16:57 Orange # (Auto) 0.5 10^3/uL (0.2-0.9) 07/31/23 16:57 Eos # (Auto) 0.2 10^3/uL (0.0-0.8) 07/31/23 16:57 Baso # (Auto) 0.1 10^3/uL (0.0-0.1) 07/31/23 16:57 Nucleated RBC % (auto) 0 % 07/31/23 16:57 Nucleated RBCs # 0.0 /100WBC 07/31/23 16:57 Sodium 133 mmol/L (136-145) L 07/31/23 16:57 Potassium 3.9 mmol/L (3.5-5.1) 07/31/23 16:57 Chloride 97 mmol/L (98-107) L 07/31/23 16:57 Carbon Dioxide 26 mmol/L (22-29) 07/31/23 16:57 Anion Gap 13.9 (5-19) 07/31/23 16:57 BUN 37 mg/dL (8-23) H 07/31/23 16:57 Creatinine 5.1 mg/dL (0.5-0.9) H 07/31/23 16:57 GFR Calculation Not Reportable 07/31/23 16:57 Glucose 92 mg/dL (65-115) 07/31/23 16:57 Calculated Osmolality 284 mOsm/kg (285-295) L 07/31/23 16:57 Lactic Acid 0.4 mmol/L (0.5-2.2) L 07/31/23 16:57 Calcium 9.2 mg/dL (8.5-10.5) 07/31/23 16:57 Total Bilirubin 0.2 mg/dL (0.15-1.2) 07/31/23 16:57 AST 14 U/L (0-32) 07/31/23 16:57 ALT 7 U/L (0-33) 07/31/23 16:57 Alkaline Phosphatase 75 U/L (35-105) 07/31/23 16:57 Total Protein 5.5 g/dL (6.6-8.7) L 07/31/23 16:57 Albumin 2.9 g/dL (3.5-5.2) L 07/31/23 16:57 Globulin 2.6 g/dL (1.3-4.6) 07/31/23 16:57 Procalcitonin 0.36 ng/mL (0-0.5) 07/31/23 16:57 Urine Color Yellow (Yellow) 07/31/23 17:05 Urine Appearance Hazy (CLEAR) A 07/31/23 17:05 Urine pH 6 (5-7) 07/31/23 17:05 Ur Specific [place] 1.010 (1.005-1.030) 07/31/23 17:05 Urine Protein 2+ (Negative) H 07/31/23 17:05 Urine Glucose (UA) Norm (Normal) 07/31/23 17:05 Urine Ketones Negative (Negative) 07/31/23 17:05 Urine Blood Neg (Negative) 07/31/23 17:05 Urine Nitrate Negative (Negative) 07/31/23 17:05 Urine Bilirubin 1+ (Negative) H 07/31/23 17:05 Urine Urobilinogen Norm mg/dL (Negative) 07/31/23 17:05 Ur Leukocyte Esterase 2+ (Negative) H 07/31/23 17:05 Urine RBC 0-4 /hpf (0-2) H 07/31/23 17:05 Urine WBC Too numerous to cnt /hpf (0-5) H 07/31/23 17:05 Ur Squamous Epith Cells 0-4 /hpf (0-5) H 07/31/23 17:05 Amorphous Sediment Not Reportable 07/31/23 17:05 Urine Bacteria 1+ /hpf (NONE) H 07/31/23 17:05 All radiology interpretation(s) finalized by discharge Discharge Plan Discharge Patient Disposition: Home Clinical Impression: Acute renal failure superimposed on chronic kidney disease, Dementia, Acute UTI, Altered mental status Condition: Stable Prescriptions: New amoxicillin-pot clavulanate 875-125 mg tablet 1 tab PO BID Qty: 20 0RF No Action acetaminophen [Tylenol] 325 mg tablet 650 mg PO Q4H PRN (Reason: Pain) ipratropium-albuterol 0.5 mg-3 mg(2.5 mg base)/3 mL solution for nebulization 3 ml INHALATION Q4H PRN (Reason: Shortness Of Breath) citalopram [Celexa] 10 mg tablet 10 mg PO DAILY Hold Instructions: Resume on 03/03/23. bisacodyl 10 mg suppository 10 mg NC DAILY PRN (Reason: constipation) Rx Instructions: if no bm in 3 days cholecalciferol (vitamin D3) [Vitamin D3] 25 mcg (1,000 unit) capsule 25 mcg PO DAILY (DME) elastic bandage 3 bandage See Rx Instructions .Route Rx Instructions: Apply to LLE as needed for swelling and continue to elevate the LE's as needed. (DME) elastic bandage Bandage See Rx Instructions .Route Rx Instructions: Apply every day to LLE as needed. ondansetron HCl 8 mg tablet 8 mg PO TID PRN (Reason: nausea and vomiting) alprazolam 0.25 mg tablet 0.25 mg PO BID PRN (Reason: Anxiety) 30 Days Qty: 60 5RF Xtampza ER 18 mg cap,sprinkl,ER12hr(DONT CRUSH) 18 mg PO BID 30 Days Qty: 60 0RF hydrocodone-acetaminophen 10-325 mg tablet 1 tab PO Q4H PRN (Reason: Pain) 30 Days Qty: 180 0RF Marybel-Eugenio Rx 1-60-300 mg-mg-mcg Tablet 1 tab PO DAILY calcium acetate(phosphat bind) 667 mg tablet 667 mg PO TID tamsulosin [Flomax] 0.4 mg capsule 0.4 mg PO BEDTIME trazodone 50 mg tablet 25 mg PO BEDTIME Carafate 100 mg/mL suspension 10 ml PO QID pantoprazole 40 mg tablet,delayed release (DR/EC) 40 mg PO BID isosorbide mononitrate 10 mg tablet 10 mg PO QPM Refresh 1 % Drops, Liquid Gel 1 drp OPHTHALMIC (EYE) QID PRN (Reason: Dry Eyes) mirtazapine 7.5 mg tablet 7.5 mg PO BEDTIME albuterol sulfate 90 mcg/actuation Hfa Aerosol Inhaler 1 - 2 inh INHALATION QID PRN (Reason: Shortness Of Breath) cephalexin 500 mg capsule 500 mg PO TID 7 Days Qty: 21 0RF polyethylene glycol 3350 17 gram/dose Powder 17 g PO DAILY PRN (Reason: Constipation) sevelamer carbonate 800 mg tablet 800 mg PO TID Hemorrhoidal (witch maia) 50 % Pads, Medicated 1 pad TOPICAL BID PRN (Reason: Hemorrhoids) loperamide 2 mg Tablet 2 mg PO Q8H PRN (Reason: Diarrhea) diphenoxylate-atropine [Lomotil] 2.5-0.025 mg tablet 1 tab PO QID PRN (Reason: Diarrhea) magnesium oxide 400 mg magnesium capsule 400 mg PO BID Qty: 30 0RF Discharge Orders: Discharge ED (Routine); Ordered 07/31/23 Ordered By: Thomas English Referrals: Soren Waters DO [Primary Care Provider] - Discharge Diet: Advance as tolerated Discharge Activity: Resume usual activity Patient Instructions: Altered Mental Status (ED), Opioid Safety, Pain Management Coding Level of Care Code ED Marketing Business Analyst for Alyson Abdullahi
--- NOTE | 2023-07-31 16:39 | XRR_ITS ---
PROCEDURE INFORMATION: Exam: XR Chest Exam date and time: 07/31/2023 4:42 PM Age: 88 years old Clinical indication: Other: AMS TECHNIQUE: Imaging protocol: Radiologic exam of the chest. Views: 1 view. COMPARISON: CR XR chest 1V portable [id number] 07/28/2023 12:48 PM FINDINGS: Tubes, catheters and devices: Right dialysis catheter remains in place. Clips project over the left lower chest wall and left upper quadrant. Lungs: Limited inspiration. Pleuroparenchymal opacity in the left base is not appreciably changed considering difference in inspiratory effort. Pleural spaces: See above. No pneumothorax. Heart/Mediastinum: Unremarkable. No cardiomegaly. Bones/joints: Unremarkable. XR/XR chest 1V portable [id number] IMPRESSION: No significant change.
[2023-07-31 17:21] LABS: Basophils # 0.1 10^3/uL (0.0-0.1); Basophils % 0.9 %; Eosinophils # 0.2 10^3/uL (0.0-0.8); Eosinophils % 3.1 %; Hematocrit 32.5 % (36-47); Lymphocytes # 0.7 10^3/uL (0.8-4.8); Lymphocytes % 13.6 %; Mean Corpuscular HGB Conc 30.2 g/dL (30-55); Mean Corpuscular Hemoglobin 34.4 pg (27-33); Mean Platelet Volume 9.7 fL (7.4-10.4); Monocytes # 0.5 10^3/uL (0.2-0.9); Monocytes % 9.2 %; Neutrophils # 3.99 10^3/uL (1.8-7.7); Nucleated Red Blood Cells % 0 %; Platelet Count 135 10^3/cmm (157-399); Red Blood Count 2.85 10^6/uL (3.85-5.65); Red Cell Distribution Width 14.7 % (12.1-15.1); White Blood Count 5.46 10^3/uL (3.29-11.43)
[2023-07-31 17:34] LABS: Alanine Aminotransferase 7 U/L (0-33); Albumin Level 2.9 g/dL (3.5-5.2); Alkaline Phosphatase 75 U/L (35-105); Anion Gap 13.9 (5-19); Aspartate Amino Transferase 14 U/L (0-32); Blood Urea Nitrogen 37 mg/dL (8-23); Calcium 9.2 mg/dL (8.5-10.5); Carbon Dioxide 26 mmol/L (22-29); Chloride 97 mmol/L (98-107); Globulin 2.6 g/dL (1.3-4.6); Glucose 92 mg/dL (65-115); Osmolality Calculated 284 mOsm/kg (285-295); Potassium 3.9 mmol/L (3.5-5.1); Sodium 133 mmol/L (136-145); Total Bilirubin 0.2 mg/dL (0.15-1.2); Total Protein 5.5 g/dL (6.6-8.7)
[2023-07-31 17:35] LABS: Lactic Sepsis W/Reflex 0.4 mmol/L (0.5-2.2)
[2023-07-31 17:40] LABS: Procalcitonin 0.36 ng/mL (0-0.5)
[2023-07-31 17:59] VITALS: BP 140/61; O2SAT 95
[2023-07-31 18:08] LABS: Add Urine Microscopic? YES; Bilirubin Urine 1+ (Negative); Blood Urine Neg (Negative); Glucose Urine UA Norm (Normal); Ketones Urine Negative (Negative); Leukocyte Esterase Urine 2+ (Negative); Nitrate Urine Negative (Negative); Protein Urine 2+ (Negative); RBC Urine 0-4 /hpf (0-2); Urine Appearance Hazy (CLEAR); Urine Color Yellow (Yellow); Urobilinogen Urine Norm (Negative); pH Urine 6 (5-7)
[2023-07-31 18:09] LABS: Add Urine Culture? Yes; Bacteria Urine 1+ /hpf; Squamous Epithelial Cell Urine 0-4 /hpf (0-5); WBC Urine TOO NUMEROUS TO CNT /hpf (0-5)
[2023-07-31] MEDS: HYDROcodone-acetaminophen 7.5-325 mg Tablet 1 TAB PO (18:23)
[2023-07-31 18:30] VITALS: BP 129/56; O2SAT 97
--- NOTE | 2023-07-31 19:00 | PC.NURSE ---
Family willing to transport patient back to [facility], as long as staff are able to help patient in and out of vehicle. This nurse spoke with staff at [facility], who stated that they would be able to assist patient back into building when family and patient arrive.
--- NOTE | 2023-07-31 19:12 | PC.NURSE ---
Dr English notified that patient did not have IV and is up for discharge. IV med order changed to IM ceftriaxone per Dr English's verbal order.
[2023-07-31] MEDS: cefTRIAXone 1,000 MG in water for injection-sterile 2.1 ML 1 MG IM (19:21)
--- NOTE | 2023-07-31 20:11 | PC.NURSE ---
Nursing staff at [facility] notified that patient was en route. Staff at [facility] helping patient into assisted living facility.
[2023-07-31 20:12] VITALS: BP 169/91; PULSE 95; RESP 18; O2SAT 94
== END 2023-07-31 20:05 | disposition home or self-care (01) ==
PROVIDERS: Emergency Provider Internal Medicine; PCP Family Medicine
DX: F03.90 Unspecified dementia, unspecified severity, without behavioral disturbance, psychotic disturbance, mood disturbance, and anxiety (principal); N39.0 Urinary tract infection, site not specified; I13.2 Hypertensive heart and chronic kidney disease with heart failure and with stage 5 chronic kidney disease, or end stage renal disease; N18.6 End stage renal disease; I50.9 Heart failure, unspecified; Z99.2 Dependence on renal dialysis; I25.2 Old myocardial infarction; E78.5 Hyperlipidemia, unspecified; Z85.3 Personal history of malignant neoplasm of breast; Z86.73 Personal history of transient ischemic attack (TIA), and cerebral infarction without residual deficits
CPT/HCPCS: 36415; 71045; 80053; 81001; 83605; 84145; 85025; 87086; 99284; J0696

== ENCOUNTER 2023-08-01 12:31 | Inpatient (IN) | payer MEDICARE, OTHER, SELFPAY ==
[2023-08-01] VITALS (23 sets, daily range): BP systolic 90–161; BP diastolic 37–103; PULSE 71–134; RESP 15–35; TEMP 36.3–37.2; O2SAT 84–98; BMI 24.0
--- NOTE | 2023-08-01 12:34 | CT_ITS ---
WS: [id number] CT HEAD TECHNIQUE: Noncontrast CT of the head obtained from the skullbase to the vertex. CLINICAL INFORMATION: AMS COMPARISON: None. DLP: 934.[address] scans at [facility] use at least one of these dose optimization techniques: automated e xposure control; mA and/or kV adjustment per patient size (includes targeted exams where dose is matc hed to clinical indication); or iterative reconstruction. FINDINGS: No evidence of intracranial hemorrhage or mass effect. Ventricular system and basal cisterns are yan nt. Mild small vessel changes with mild parenchymal volume loss. No extra-axial fluid collections. No evidence of mass or mass effect. Paranasal sinuses are well aerated. Secretions within the sphenoid sinus. Mastoid air cells are well aerated. Normal posterior nasopharynx. IMPRESSION: 1. No evidence of intracranial hemorrhage or mass effect. 2. Mild small vessel changes. Mild parenchymal volume loss. 3. Secretions within the sphenoid sinus. 4. No acute intracranial findings.
--- NOTE | 2023-08-01 12:34 | XR_ITS ---
WS: [id number] XR chest 1V portable [id number] REASON FOR EXAM: dyspnea/cough FINDINGS: The chest is unchanged compared to the examination of the previous day 4:43 p.m. Right internal jugular dual-lumen central venous dialysis catheter in the mid to distal superior vena cava. Low lung volumes compared to previous examination of 07/28/2023, especially on the right. These findin gs may be a combination of pleural effusion and consolidation/atelectasis in the lower lobes. IMPRESSION: The chest is relatively stable to the prior day however compared to previous examination of 07/28/2023 there is been progressive increased opacity in the lower hemithoraces with decreased lung volumes as noted above.
[2023-08-01 12:47] LABS: Basophils % 0.2 %; Eosinophils # 0.1 10^3/uL (0.0-0.8); Eosinophils % 1.5 %; Hematocrit 37.5 % (36-47); Lymphocytes # 0.8 10^3/uL (0.8-4.8); Lymphocytes % 12.8 %; Mean Corpuscular HGB Conc 30.4 g/dL (30-55); Mean Corpuscular Hemoglobin 34.7 pg (27-33); Mean Platelet Volume 9.4 fL (7.4-10.4); Monocytes # 0.5 10^3/uL (0.2-0.9); Monocytes % 8.1 %; Neutrophils # 4.59 10^3/uL (1.8-7.7); Neutrophils % 77.2 %; Nucleated Red Blood Cells % 0 %; Platelet Count 152 10^3/cmm (157-399); Red Blood Count 3.29 10^6/uL (3.85-5.65); Red Cell Distribution Width 14.8 % (12.1-15.1); White Blood Count 5.94 10^3/uL (3.29-11.43)
--- NOTE | 2023-08-01 12:57 | XRR_ITS ---
PROCEDURE INFORMATION: Exam: XR Abdomen Exam date and time: 08/01/2023 1:06 PM Age: 88 years old Clinical indication: Bloating and constipation; Prior surgery; Surgery date: 6+ months; Surgery type: Lt hip; Additional info: Constipation/abd bloating TECHNIQUE: Imaging protocol: Radiologic exam of the abdomen. Views: Frontal supine view of the abdomen. 1 View. COMPARISON: CT abdomen pelvis con [id number] 07/28/2023 12:59 PM FINDINGS: Gastrointestinal tract: Nonspecific bowel gas pattern. Bones/joints: Left hip replacement. Severe degenerative changes of the right hip. Anterior and posterior fusion of the lower lumbar spine. XR/XR KUB portable [id number] IMPRESSION: Nonspecific.
--- NOTE | 2023-08-01 13:01 | W.ED.AMS ---
HPI - Altered Mental Status General: Chief Complaint: Altered Mental Status Stated Complaint: AMS Time Seen by Provider: 08/01/23 12:33 Source: EMS Mode of arrival: EMS History of Present Illness: 88-year-old female patient to lives [facility] she is currently getting dialysis. She was. Dialysis morning, was not able to get there and did not have a run of dialysis. She did take her medications she was sedate EMS gave her Narcan she did improve some she is still difficult to understand and follow when she arrives here. She complains of some mild abdominal discomfort. She is alert and aware time place presented to head at this time. Difficult to understand her to get a full history. MD complaint: altered mental status Onset (ago): hour(s) Timing confirmed by: caregiver Severity: moderate Context: history of similar presentation Associated symptoms: Deny auditory hallucinations, visual hallucinations, delusions, depression, homicidal ideation, racing thoughts or suicidal ideation Review of Systems Const: Denies: fever(s) or chills Card: Denies: chest pain Resp: Denies: dyspnea GI: Denies: abdominal pain : Denies: dysuria, urinary frequency or urinary urgency Musc: Denies: neck pain or back pain Skin/Breast: Denies: rash Psych: Denies: depression, visual hallucinations, auditory hallucinations, suicidal ideation or homicidal ideation [facility] ED PFSH: Medical History Anemia Decubitus ulcer of left lower back, stage 2 DVT (deep venous thrombosis) Acute GI bleeding Chronic kidney disease Leg wound, left Non-STEMI (non-ST elevated myocardial infarction) ESRD (end stage renal disease) on dialysis Low BP Urinary tract infection Fall Acetabulum fracture, left Decubitus ulcer of buttock Hypoxemic respiratory failure, chronic Chronic diarrhea UTI (urinary tract infection) Lives in assisted living facility Swelling of both lower extremities Decubitus ulcer, buttock, right, unstageable Internal and external bleeding hemorrhoids Urinary retention Recurrent UTI Incomplete bladder emptying Restrictive lung disease Paroxysmal A-fib Anxiety and depression History of pulmonary embolus (PE) 08/2016 Lumbar spinal stenosis Fibromyalgia Hyperlipidemia History of breast cancer Previously followed by Dr. Santoyo Diastolic CHF ESRD (end stage renal disease) Peritoneal dialysis catheter in place Osteoarthritis DDD (degenerative disc disease) Hypertension GERD (gastroesophageal reflux disease) Anemia of chronic disease History of stroke 11/14/16 Surgical History S/P hemodialysis catheter insertion History of esophagogastroduodenoscopy (EGD) 08/03/17 mild gastritis and duodenitis History of hemiarthroplasty of left hip 11/18/18: Dr. Mendoza History of back surgery History of lumpectomy of left breast History of right cataract surgery History of hysterectomy Family History Other Cancer Denies family history of Anesthesia complication Bleeding disorder Social History Second hand smoke exposure: No Alcohol intake: never Substance/Drug Use: never Additional social history: FULL CODE DISCUSSED WITH PATIENT ON 02/04/20 Adopted: No Caregiver/support person: Yes Lives independently: Yes Housing: Assisted Living Facility Marital status: Marital status details: with dementia Physical Exam Const: GENERAL APPEARANCE: lethargic ORIENTATION/CONSCIOUSNESS: Yes confused and Yes lethargic HENMT: COMMON NORMALS: normocephalic, atraumatic and hearing grossly normal bilaterally HEAD & SCALP: normocephalic and atraumatic Resp: COMMON NORMALS: normal respiratory effort, No retractions, No use of accessory muscles and clear to auscultation bilaterally AUSCULTATION: clear to auscultation bilaterally Cardio: COMMON NORMALS: regular rate, regular rhythm and No murmurs present (Cardio) RATE: regular rate RHYTHM: regular rhythm GI: COMMON NORMALS: No hepatosplenomegaly present AUSCULTATION: Yes normoactive bowel sounds PALPATION: Yes Tenderness to palpation present (GI), No Guarding due to palpation present (GI) and Yes No hepatosplenomegaly present Extremity: COMMON NORMALS: normal to inspection, capillary refill normal, no clubbing, cyanosis or edema, no calf tenderness and no pedal edema Neuro: SENSORIUM/ORIENTATION: Yes lethargic Psych: THOUGHT CONTENT: No delusions Skin: COMMON NORMALS: no rashes or lesions noted GENERAL SKIN EXAM: no rashes or lesions noted Course Vital Signs: Vital signs: Vital Signs Temperature 97.6 F 08/06/23 12:59 Pulse Rate 100 08/06/23 12:59 Respiratory Rate 18 08/06/23 12:59 Blood Pressure 159/80 08/06/23 12:59 Pulse Oximetry 95 08/06/23 12:59 Oxygen Delivery Me thod Nasal Cannula 08/06/23 08:05 Oxygen Flow Rate 2 08/06/23 08:05 Fraction of Inspir ed Oxygen 30 08/03/23 08:20 MDM - Altered Mental Status Medical Decision Making Acute hypercapnic respiratory failure with UTI. End-stage renal disease she has missed around dialysis this morning. Troponin is elevated but I believe that is due to her end-stage renal disease she has no acute changes on her EKG. She is moderately encephalopathic as well. She started on BiPAP and antibiotics. Will admit consult nephrology discussed with hospitalist orders written Medical Records I reviewed the patient's medical records. Lab Data I reviewed the patient's lab results. 08/04/23 05:53 08/04/23 05:53 Radiology Impressions KUB X-Ray 08/01/23 12:57 IMPRESSION: Nonspecific. Chest/Abdomen/Pelvis CT 08/01/23 14:37 IMPRESSION: 1. Acute pulmonary embolism. 2. Basilar atelectasis 3. Bilateral pleural effusions. IMPRESSION: 1. Suspected fecal impaction. 2. Anasarca 3. Distended gallbladder with mild gallbladder wall thickening. Please correlate for clinical findings of cholecystitis. 4. 2 cm hyperdense and possibly enhancing mass in the lower pole of the right kidney larger than on 01/01/2022. Consider further evaluation with non urgent MRI or CT without with contrast. COMMENTS: Consistent with the [employer]'s Incidental Findings Committee white paper (J Am Logan Radiol 2018): Any incidental renal lesion less than 1 cm or classified as too small to characterize, or any incidental cystic renal lesion characterized as simple-appearing, is likely benign. No follow-up imaging is recommended for these lesions per consensus recommendations based on imaging criteria. ADDENDUM: 08/01/23 3406 Addendum: THIS REPORT CONTAINS FINDINGS THAT MAY BE CRITICAL TO PATIENT CARE. The findings were verbally communicated via telephone conference with Dr Esquivel at 9:47 PM PATTERN DATA OPERATOR on 08/01/2023. The findings were acknowledged and understood. Chest X-Ray 08/01/23 18:13 IMPRESSION: 1. No pneumothorax following left subclavian line placement. 2. Left basilar infiltrate not significantly changed. Laboratory Results WBC 5.94 10^3/uL (3.29-11.43) 08/01/23 12:15 RBC 3.29 10^6/uL (3.85-5.65) L 08/01/23 12:15 Hgb 11.40 g/dL (11.27-16.99) 08/01/23 12:15 Hct 37.5 % (36-47) 08/01/23 12:15 MCV 114.0 fl (85-98) H 08/01/23 12:15 MCH 34.7 pg (27-33) H 08/01/23 12:15 MCHC 30.4 g/dL (30-55) 08/01/23 12:15 RDW 14.8 % (12.1-15.1) 08/01/23 12:15 Plt Count 152 10^3/cmm (157-399) L 08/01/23 12:15 MPV 9.4 fL (7.4-10.4) 08/01/23 12:15 Neut % (Auto) 77.2 % 08/01/23 12:15 Lymph % (Auto) 12.8 % 08/01/23 12:15 [place] % (Auto) 8.1 % 08/01/23 12:15 Eos % (Auto) 1.5 % 08/01/23 12:15 Baso % (Auto) 0.2 % 08/01/23 12:15 Neut # (Auto) 4.59 10^3/uL (1.8-7.7) 08/01/23 12:15 Lymph # (Auto) 0.8 10^3/uL (0.8-4.8) 08/01/23 12:15 [place] # (Auto) 0.5 10^3/uL (0.2-0.9) 08/01/23 12:15 Eos # (Auto) 0.1 10^3/uL (0.0-0.8) 08/01/23 12:15 Baso # (Auto) 0.0 10^3/uL (0.0-0.1) 08/01/23 12:15 Nucleated RBC % (auto) 0 % 08/01/23 12:15 Nucleated RBCs # 0.0 /100WBC 08/01/23 12:15 D-Dimer 1.53 ug/mLFEU (0-0.59) H 08/01/23 12:15 Specimen Type Arterial 08/01/23 17:00 Sample Site Radial, right 08/01/23 17:00 ABG pH 7.22 (7.35-7.45) L 08/01/23 17:00 ABG pCO2 61.9 mmHg (35-45) H* 08/01/23 17:00 ABG pO2 85.9 mmHg (80.0-100.0) 08/01/23 17:00 ABG PO2/FiO2 Ratio 0 08/01/23 17:00 ABG HCO3 25.0 mmol/L (22-26) 08/01/23 17:00 ABG O2 Saturation 94.3 08/01/23 17:00 ABG Base Excess -3.3 mmol/L (-2.0-2.0) L 08/01/23 17:00 Eddi Test Pos 08/01/23 17:00 A-a O2 Gradient 11.6 mmHg (5-10) H 08/01/23 17:00 Hematocrit 30.7 % (37-47) L 08/01/23 17:00 Hgb O2 Saturation 93.8 % (95-100) L 08/01/23 17:00 Carboxyhemoglobin < 0.0 %THgb (0.4-20.1) L 08/01/23 17:00 Methemoglobin 0.6 % (0.4-1.5) 08/01/23 17:00 Total Hemoglobin 10.0 g/dL (12-16) L 08/01/23 17:00 Sodium 133.0 mmol/L (131-143) 08/01/23 17:00 Potassium 4.3 mmol/L (3.5-5.0) 08/01/23 17:00 Glucose 76.0 mg/dL (70-115) 08/01/23 17:00 Ionized Calcium 1.3 mmol/L (1.1-1.4) 08/01/23 17:00 O2 Delivery Device Bipap 08/01/23 17:00 O2 Liters/Min 4.0 % 08/01/23 14:38 FiO2 35.0 % 08/01/23 17:00 Medical Secretary Teacher ID Cak 08/01/23 17:00 Sodium 134 mmol/L (136-145) L 08/01/23 12:15 Potassium 4.9 mmol/L (3.5-5.1) 08/01/23 12:15 Chloride 96 mmol/L (98-107) L 08/01/23 12:15 Carbon Dioxide 29 mmol/L (22-29) 08/01/23 12:15 Anion Gap 13.9 (5-19) 08/01/23 12:15 BUN 46 mg/dL (8-23) H 08/01/23 12:15 Creatinine 6.0 mg/dL (0.5-0.9) H* 08/01/23 12:15 GFR Calculation Not Reportable 08/01/23 12:15 Glucose 77 mg/dL (65-115) 08/01/23 12:15 Calculated Osmolality 289 mOsm/kg (285-295) 08/01/23 12:15 Lactic Acid 0.7 mmol/L (0.5-2.2) 08/01/23 16:42 Calcium 9.9 mg/dL (8.5-10.5) 08/01/23 12:15 Total Bilirubin 0.3 mg/dL (0.15-1.2) 08/01/23 12:15 AST 21 U/L (0-32) 08/01/23 12:15 ALT 9 U/L (0-33) 08/01/23 12:15 Alkaline Phosphatase 83 U/L (35-105) 08/01/23 12:15 Ammonia 52 umol/L (11-51) H 08/01/23 16:42 Troponin T Baseline 233 ng/L (0-10) H* 08/01/23 12:15 Troponin T 120 Minute 215.9 ng/L (0-10) H 08/01/23 15:13 Delta Troponin T -17.1 ABS# (0-10) L 08/01/23 15:13 Troponin T Hi Sens 6Hr 226.7 ng/L (0-10) H 08/01/23 18:45 Troponin T Hi Sens 6Hr Delta -6.3 ng/L (0-12) L 08/01/23 18:45 Total Protein 5.8 g/dL (6.6-8.7) L 08/01/23 12:15 Albumin 3.3 g/dL (3.5-5.2) L 08/01/23 12:15 Globulin 2.5 g/dL (1.3-4.6) 08/01/23 12:15 Lipase 23 U/L (13-60) 08/01/23 12:15 Lipase Cancelled 08/01/23 12:15 Procalcitonin 0.45 ng/mL (0-0.5) 08/01/23 12:15 TSH 3.10 uIU/mL (0.27-4.20) 08/01/23 12:15 Salicylates < 0.3 mg/dL (3-10) L 08/01/23 12:15 Acetaminophen < 5.0 ug/mL (10-30) L 08/01/23 12:15 Serum Ketones Negative (Negative) 08/01/23 12:15 Coronavirus 229E (PCR) Not detected (NOT DETECT) 08/01/23 15:34 Influenza Type A Ag negative (Negative) 08/01/23 15:34 Influenza Type B Ag negative (Negative) 08/01/23 15:34 SARS-CoV-2 (PCR) Not detected (NOT DETECT) 08/01/23 15:34 All radiology interpretation(s) finalized by discharge Discharge Plan Discharge Patient Disposition: Admitted As Inpatient Admit Provider: Marycarmen Mcrae Clinical Impression: Acute and chronic respiratory failure with hypercapnia, Dementia, Encephalopathy, Congestive heart failure (CHF), Cystitis, Elevated troponin I level, History of pulmonary embolism, Anemia Condition: Stable Coding Level of Care Code ED Electronic Tech for Alyson Abdullahi
[2023-08-01 13:14] LABS: Alanine Aminotransferase 9 U/L (0-33); Albumin Level 3.3 g/dL (3.5-5.2); Alkaline Phosphatase 83 U/L (35-105); Blood Urea Nitrogen 46 mg/dL (8-23); Calcium 9.9 mg/dL (8.5-10.5); Carbon Dioxide 29 mmol/L (22-29); Chloride 96 mmol/L (98-107); Globulin 2.5 g/dL (1.3-4.6); Glucose 77 mg/dL (65-115); Lipase 23 U/L (13-60); Osmolality Calculated 289 mOsm/kg (285-295); Sodium 134 mmol/L (136-145); Total Bilirubin 0.3 mg/dL (0.15-1.2); Total Protein 5.8 g/dL (6.6-8.7)
[2023-08-01 13:16] LABS: Anion Gap 13.9 (5-19); Aspartate Amino Transferase 21 U/L (0-32); Potassium 4.9 mmol/L (3.5-5.1); Troponin(5th) Baseline 233 ng/L (0-10)
--- NOTE | 2023-08-01 13:31 | ECG_ITS ---
[facility] Test Date: 2023-08-01 Pat Name: Milla Thomas Department: Room: Gender: Female Assistant Business Manager: : 1935 Requested By: Obinna Montano Order Number: [id number] iTsha MD: Lani Baxter M.D. Measurements Intervals [place] Rate: 101 P: -4 NE: 235 QRS: -12 QRSD: 96 T: -8 QT: 341 QTc: 443 Interpretive Statements SINUS TACHYCARDIA WITH FIRST DEGREE AV BLOCK VOLTAGE CRITERIA FOR LVH [MEETS CRITERIA IN ONE OF: R(aVL), S(V1), R(V5), R(V5/V6)+S(V1)] POSSIBLE ANTERIOR MYOCARDIAL INFARCTION , OF INDETERMINATE AGE [30 ms Q WAVE IN V3/V4, OR R < 0.2 mV IN V4] INFERIOR MYOCARDIAL INFARCTION , PROBABLY OLD [40+ ms Q WAVE AND/OR ST/T ABNORMALITY IN II/aVF] Compared to ECG 07/28/2023 12:47:49 Left ventricular hypertrophy now present Myocardial infarct finding now present Sinus rhythm no longer present Electronically Signed On 08-01-2023 19:53:28 CABLE SPLICER HELPER by Lani Baxter M.D. [email or web address] Softwarecopiah county medical centerGreencloud Technologiesuniversity hospitals st. [facility]ohn medical center.[employer] [email or web address]/store/[id number]
--- NOTE | 2023-08-01 14:35 | ECG_ITS ---
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 Measurements Intervals [place] Rate: 123 P: 0 NE: 0 QRS: -11 QRSD: 92 T: -15 QT: 297 QTc: 425 Interpretive Statements ATRIAL FIBRILLATION WITH RAPID VENTRICULAR RESPONSE VOLTAGE CRITERIA FOR LVH [MEETS CRITERIA IN ONE OF: R(aVL), S(V1), R(V5), R(V5/V6)+S(V1)] POSSIBLE ANTERIOR MYOCARDIAL INFARCTION , OF INDETERMINATE AGE [30 ms Q WAVE IN V3/V4, OR R < 0.2 mV IN V4] INFERIOR MYOCARDIAL INFARCTION , OF INDETERMINATE AGE [40+ ms Q WAVE AND/OR ST/T ABNORMALITY IN II/aVF] Compared to ECG 08/01/2023 13:31:57 Sinus tachycardia no longer present First degree AV block no longer present Myocardial infarct finding still present Electronically Signed On 08-01-2023 20:16:59 PERSONALIZATION SPECIALIST by Lani Baxter M.D. [email or web address]/[id number]
--- NOTE | 2023-08-01 14:37 | CTR_ITS ---
PROCEDURE INFORMATION: Exam: CTA Chest With Contrast Exam date and time: 08/01/2023 8:20 PM Age: 88 years old Clinical indication: Bloating and constipation; Shortness of breath; Prior surgery; Surgery date: 6+ months; Surgery type: Lspine, hip; Additional info: Hypoxia/tachycardia/tachypnea TECHNIQUE: Imaging protocol: Computed tomographic angiography of the chest with contrast. Exam focused on the arteries. 3D rendering (Not supervised by radiologist): MIP and/or 3D reconstructed images were created by the technologist. Radiation optimization: All CT scans at this facility use at least one of these dose optimization techniques: automated exposure control; mA and/or kV adjustment per patient size (includes targeted exams where dose is matched to clinical indication); or iterative reconstruction. Contrast material: [id number]; Contrast volume: 100 ml; Contrast route: INTRAVENOUS (IV); COMPARISON: CT angio chest PE protcl [id number] 02/02/2023 12:34 PM RADIATION DOSE METRICS: Total DLP (mGy-cm): 875 FINDINGS: Limitations: Study somewhat limited due to streak artifact created by the patient being scanned with the arms at the sides. Pulmonary arteries: There is filling defect involving the pulmonary artery branch to the anterior segment of the right upper lobe and also in a subsegmental branch in the right apical segment consistent with acute pulmonary embolism. Aorta: There is no thoracic aortic aneurysm or dissection. Lungs: There is compressive atelectasis of portions of both lower lobes. Pleural spaces: There are small bilateral pleural effusions. Heart: Unremarkable. No cardiomegaly. No pericardial effusion. Heart RV/LV ratio: 1.14. With some straightening of the interventricular septum this could represent some right heart strain. Lymph nodes: Unremarkable. No enlarged lymph nodes. Bones/joints: Unremarkable. No acute fracture. Soft tissues: Unremarkable. PROCEDURE INFORMATION: Exam: CT Abdomen And Pelvis With Contrast Exam date and time: 08/01/2023 8:20 PM Age: 88 years old Clinical indication: Bloating and constipation; Shortness of breath; Prior surgery; Surgery date: 6+ months; Surgery type: Lspine, hip; Additional info: Hypoxia/tachycardia/tachypnea TECHNIQUE: Imaging protocol: Computed tomography of the abdomen and pelvis with contrast. Radiation optimization: All CT scans at this facility use at least one of these dose optimization techniques: automated exposure control; mA and/or kV adjustment per patient size (includes targeted exams where dose is matched to clinical indication); or iterative reconstruction. Contrast material: [id number]; Contrast volume: 100 ml; Contrast route: INTRAVENOUS (IV); COMPARISON: CT abdomen pelvis con [id number] 07/28/2023 12:59 PM RADIATION DOSE METRICS: Total DLP (mGy-cm): 875 FINDINGS: Limitations: Study somewhat limited due to streak artifact created by the patient being scanned with the arms at the sides. Tubes, catheters and devices: There is left hip replacement with prosthetic components in anatomic alignment. Metallic prosthesis causes streak artifact that obscures some portions of the pelvis. Liver: There is no focal abnormality within the liver. Gallbladder and bile ducts: Gallbladder is distended and there is gallbladder wall thickening. Findings are worrisome for cholecystitis. Please correlate clinically. Common bile duct measures 9 mm which is not unusual for the patient's age. Pancreas: The pancreas is normal. Pancreatic duct is prominent measuring 6 mm in the neck of the pancreas and up to 4 mm in the tail but no focal pancreatic mass is identified. Spleen: The spleen is normal. Adrenal glands: The adrenal glands are normal. Kidneys and ureters: There are numerous cortical cysts of both kidneys not significantly changed. There is a 1.8 cm sized possibly enhancing mass arising from the lateral aspect of the right kidney increased compared with 01/01/2022. Consider further evaluation with non urgent MRI or non urgent CT scan without with contrast. There is no evidence of hydronephrosis. There is no evidence of renal or ureteral calcifications. Stomach and bowel: There is a large amount of feces within the rectum which could represent fecal impaction. There may also be some element of rectal prolapse. This is not fully imaged on this study. Please correlate clinically. There is no evidence of intestinal obstruction. Appendix: Not identified Intraperitoneal space: There is no evidence of free intraperitoneal fluid. Vasculature: The aorta demonstrates mild atherosclerotic calcification. There is no evidence of an abdominal aortic aneurysm. Lymph nodes: There is no evidence of lymphadenopathy. Urinary bladder: Unremarkable as visualized. Reproductive: There has been a hysterectomy. Bones/joints: Healing left iliac fractures are noted. There is additional healing compared with the previous examination. There is L4-S1 PLIF with wide laminectomy stable from the previous examination. Extensive degenerative changes are again seen in the lower lumbar spine. There is moderate anterolisthesis at L4-L5 not significantly changed. Soft tissues: Soft tissue edema again identified consistent with anasarca not significantly changed. CT/CT angio chest w abd pel w con IMPRESSION: 1. Acute pulmonary embolism. 2. Basilar atelectasis 3. Bilateral pleural effusions. IMPRESSION: 1. Suspected fecal impaction. 2. Anasarca 3. Distended gallbladder with mild gallbladder wall thickening. Please correlate for clinical findings of cholecystitis. 4. 2 cm hyperdense and possibly enhancing mass in the lower pole of the right kidney larger than on 01/01/2022. Consider further evaluation with non urgent MRI or CT without with contrast. COMMENTS: Consistent with the [place]'s Incidental Findings Committee white paper (J Am Logan Radiol 2018): Any incidental renal lesion less than 1 cm or classified as too small to characterize, or any incidental cystic renal lesion characterized as simple-appearing, is likely benign. No follow-up imaging is recommended for these lesions per consensus recommendations based on imaging criteria.
[2023-08-01 14:49] LABS: ABG PH Result 7.18 (7.35-7.45); Alveolar-Arterial Oxygen Gradi 12.8 mmHg (5-10); Arterial Blood Gas Hematocrit 34.5 % (37-47); Blood Gas Allen Test Pos; Blood Gas Operator Identificat CAK; Blood Gas Sample Site Radial, right; Blood Gas Sample Type Arterial; Carboxyhemoglobin < 0.0 %THgb (0.4-20.1); HCO3 ABG 26.4 mmol/L (22-26); HGB O2 Sat 91.4 % (95-100); Ionized Calcium Level - ABG 1.4 mmol/L (1.1-1.4); Methemoglobin 0.9 % (0.4-1.5); Oxygen Device NC; PO2 ABG 73.8 mmHg (80.0-100.0); PO2 FiO2 Ratio Arterial Blood 0; Potassium Level - ABG 4.1 mmol/L (3.5-5.0); Total Hemoglobin 11.3 g/dL (12-16)
[2023-08-01 14:50] LABS: ABG PCO2 70.9 mmHg (35-45)
[2023-08-01 15:08] LABS: Ketone (Acetest) Serum Negative (Negative)
[2023-08-01] MEDS: dilTIAZem 5 mg/mL SDV 5 mL 20 MG IVP (15:25)
[2023-08-01] MEDS: dilTIAZem 100 MG in sodium chloride 0.9% (add-van) 100 ML IV (15:26)
[2023-08-01 15:28] LABS: Acetaminophen < 5.0 ug/mL (10-30); Salicylate < 0.3 mg/dL (3-10)
[2023-08-01 15:45] LABS: Troponin 5 2HR Delta -17.1 ABS# (0-10)
[2023-08-01 15:46] LABS: Troponin 5 2HR 215.9 ng/L (0-10)
[2023-08-01 16:27] LABS: Influenza A by IFA negative (Negative); Influenza B by IFA negative (Negative)
--- NOTE | 2023-08-01 16:31 | P.HP_ITS ---
Providers/Chief Complaint 2 Primary Care Provider: Soren Waters DO Chief Complaint: AMS History of Present Illness Milla Thomas is a 88 year old female who has history of end-stage renal disease, Monday, was recently seen in the ER multiple times, she was treated for UTI with antibiotics, constipation was diagnosed, she is returning today for worsening of her mentation. As per the family, medical DPJOANNE Chengy is at the bedside patient is very obtunded currently on BiPAP, Gaby saying that her mentation has worsened significantly in the last 24 to 48 hours, she does take pain medications for her lower extremity pain, because of her hip arthritis and previous fracture she is not able to ambulate on her own, she is from assisted living [facility], they are not sure if patient complained about chest pain she did not experience any nausea, vomiting or recent fever. In the ER she was diagnosed with severe hypoxic hypercarbic respiratory failure improving on BiPAP, she is full code, she will be admitted to ICU, she has missed her 1 session of dialysis, Start nephro consult, will dialyze her tonight, Repeat ABG showing improvement no indication for intubation however our threshold will stay low, coming family is agreeable She also has non-STEMI, start ACS protocol Please note last year she had GI bleed required blood transfusion and Eliquis was held She has history of A-fib Review of Systems 2 General: Reports: ROS unobtainable due to mental status Medications/Allergies Home Medications Medication Instructions Recorded Confirmed Last Taken Type acetaminophen 325 mg tablet 650 mg PO Q4H PRN Pain 11/13/19 08/01/23 07/26/23 History (Tylenol) citalopram 10 mg tablet (Celexa) 10 mg PO DAILY 11/13/19 08/01/23 08/01/23 History ipratropium 0.5 mg-albuterol 3 mg 3 ml inhalation Q4H PRN Shortness 11/13/19 08/01/23 Unknown History (2.5 mg base)/3 mL nebulization Of Breath soln vitamin B comp no.3-folic acid 1 1 tab PO DAILY 02/25/20 08/01/23 08/01/23 History mg-vit C 60 mg-biotin 300 mcg tablet (Marybel-Eugenio Rx) tamsulosin 0.4 mg capsule (Flomax) 0.4 mg PO BEDTIME 09/08/20 08/01/23 07/31/23 History calcium acetate(phosphat bind) 667 667 mg PO TID 03/29/21 08/01/23 08/01/23 History mg tablet bisacodyl 10 mg rectal suppository 10 mg NH DAILY PRN constipation 10/10/21 08/01/23 Unknown History cholecalciferol (vitamin D3) 25 25 mcg PO DAILY 10/10/21 08/01/23 08/01/23 History mcg (1,000 unit) capsule (Vitamin D3) elastic bandage 10/10/21 08/01/23 Unknown History elastic bandage 3 10/10/21 08/01/23 Unknown History ondansetron HCl 8 mg tablet 8 mg PO TID PRN nausea and vomiting 10/10/21 08/01/23 07/26/23 History polyethylene glycol 3350 17 17 g PO DAILY PRN Constipation 01/19/23 08/01/23 07/27/23 History gram/dose oral powder sevelamer carbonate 800 mg tablet 800 mg PO TID 01/19/23 08/01/23 08/01/23 History diphenoxylate-atropine 2.5 1 tab PO QID PRN Diarrhea 02/01/23 08/01/23 07/26/23 History mg-0.025 mg tablet (Lomotil) witch maia 50 % topical pads 1 pad topical BID PRN Hemorrhoids 02/01/23 08/01/23 Unknown History (Hemorrhoidal (witch maia)) magnesium oxide 400 mg PO BID #30 caps 05/02/23 08/01/23 08/01/23 Rx oxycodone myristate 18 mg capsule 18 mg PO BID 30 days #60 ea 07/11/23 08/01/23 08/01/23 Rx sprinkle extended release 12hr(DON'T CRUSH) (Xtampza ER) hydrocodone 10 mg-acetaminophen 1 tab PO Q4H PRN Pain 30 days #180 07/22/23 08/01/23 08/01/23 Rx 325 mg tablet tabs albuterol sulfate 90 mcg/actuation 1 - 2 inh inhalation QID PRN 07/28/23 08/01/23 07/23/23 History aerosol inhaler Shortness Of Breath carboxymethylcellulose sodium 1 % 1 drp ophthalmic (eye) QID PRN Dry 07/28/23 08/01/23 Unknown History eye liquid gel drops Eyes cephalexin 500 mg capsule 500 mg PO TID 7 days #21 caps 07/28/23 08/01/23 Unknown Rx isosorbide mononitrate 10 mg tablet 10 mg PO QPM 07/28/23 08/01/23 07/30/23 History mirtazapine 7.5 mg tablet 7.5 mg PO BEDTIME 07/28/23 08/01/23 07/31/23 History pantoprazole 40 mg tablet,delayed 40 mg PO BID 07/28/23 08/01/23 08/01/23 History release sucralfate 100 mg/mL oral 10 ml PO QID 07/28/23 08/01/23 07/28/23 History suspension (Carafate) trazodone 50 mg tablet 25 mg PO BEDTIME 07/28/23 08/01/23 07/31/23 History amoxicillin 875 mg-potassium 1 tab PO BID #20 tabs 07/31/23 08/01/23 08/01/23 Rx clavulanate 125 mg tablet alprazolam 0.25 mg tablet 0.5 mg PO Q8H PRN Anxiety 08/01/23 08/01/23 08/01/23 History loperamide 2 mg tablet 2 mg PO Q8H PRN Diarrhea 08/01/23 08/01/23 Unknown History mineral oil 15 ml PO DAILY 08/01/23 08/01/23 08/01/23 History Allergies Allergy/AdvReac Type Severity Reaction Status Date / Time amitriptyline [From Elavil] Allergy Unknown Unknown Verified 08/01/23 12:42 cyclobenzaprine Allergy Unknown Unknown Verified 08/01/23 12:42 [From Flexeril] Penicillins Allergy Unknown Unknown Verified 08/01/23 12:42 pentazocine [From Talwin] Allergy Unknown Unknown Verified 08/01/23 12:42 pregabalin [From Lyrica] Allergy Unknown Unknown Verified 08/01/23 12:42 tizanidine Allergy Unknown Unknown Verified 08/01/23 12:42 doxycycline Allergy Unknown Verified 08/01/23 12:42 morphine Allergy Unknown Verified 08/01/23 12:42 naloxone Allergy Unknown Verified 08/01/23 12:42 Sulfa (Sulfonamide Allergy Unknown Verified 08/01/23 12:42 Antibiotics) sulfamethoxazole AdvReac kidney Verified 08/01/23 12:42 [From Bactrim] trimethoprim [From Bactrim] AdvReac kidney Verified 08/01/23 12:42 PFSH Acute 2 PFSH: Medical History Anemia Decubitus ulcer of left lower back, stage 2 DVT (deep venous thrombosis) Acute GI bleeding Chronic kidney disease Leg wound, left Non-STEMI (non-ST elevated myocardial infarction) ESRD (end stage renal disease) on dialysis Low BP Urinary tract infection Fall Acetabulum fracture, left Decubitus ulcer of buttock Hypoxemic respiratory failure, chronic Chronic diarrhea UTI (urinary tract infection) Lives in assisted living facility Swelling of both lower extremities Decubitus ulcer, buttock, right, unstageable Internal and external bleeding hemorrhoids Urinary retention Recurrent UTI Incomplete bladder emptying Restrictive lung disease Paroxysmal A-fib Anxiety and depression History of pulmonary embolus (PE) 08/2016 Lumbar spinal stenosis Fibromyalgia Hyperlipidemia History of breast cancer Previously followed by Dr. Santoyo Diastolic CHF ESRD (end stage renal disease) Peritoneal dialysis catheter in place Osteoarthritis DDD (degenerative disc disease) Hypertension GERD (gastroesophageal reflux disease) Anemia of chronic disease History of stroke 11/14/16 Surgical History S/P hemodialysis catheter insertion History of esophagogastroduodenoscopy (EGD) 08/03/17 mild gastritis and duodenitis History of hemiarthroplasty of left hip 11/18/18: Dr. Mendoza History of back surgery History of lumpectomy of left breast History of right cataract surgery History of hysterectomy Family History Other Cancer Denies family history of Anesthesia complication Bleeding disorder Social History Second hand smoke exposure: No Alcohol intake: never Substance/Drug Use: never Additional social history: FULL CODE DISCUSSED WITH PATIENT ON 02/04/20 Adopted: No Caregiver/support person: Yes Lives independently: Yes Housing: Assisted Living Facility Marital status: Marital status details: with dementia Vitals/I&O/Wt Last Vital Signs Temp 98.9 F 08/01/23 12:33 Pulse 103 H 08/01/23 15:00 Resp 18 08/01/23 12:33 BP 161/103 08/01/23 12:33 Pulse Ox 95 08/01/23 15:00 O2 Del Method Nasal Cannula 08/01/23 12:33 O2 Flow Rate 5 08/01/23 12:33 FiO2 35 08/01/23 15:00 Weight last 48 hrs Weight 63.503 kg Physical Exam 2 Narrative: Patient is obtunded Currently on BiPAP Family at the bedside Patient is able to respond little bit to verbal commands on multiple stimulations Full code Clinically looks euvolemic Abdomen soft Paula catheter in place S1, S2 Hemodynamically stable Saturating well on 30% FiO2 Data 08/02/23 03:59 08/02/23 04:29 A&P Assessment and plan (1) Internal and external bleeding hemorrhoids: (2) Chronic constipation: (3) ESRD (end stage renal disease): (4) Acute UTI: (5) Anemia: (6) Altered mental status: (7) Dementia: (8) Lives in assisted living facility: (9) Weakness: (10) Lymphedema: (11) Acute hypoxic on chronic hypercapnic respiratory failure: (12) Pulmonary embolism: (13) Acute on chronic anemia: Plan Acute hypoxic hypercarbic respite failure I do believe it is multifactorial Use of opioids, UTI, fluid overload Plan Start dialysis Continue BiPAP all night Improving on current BiPAP settings 18/6, FiO2 30% respiratory rate 15 Low threshold to intubate She is full code Non-STEMI: Start ACS protocol Start heparin, will give her aspirin and Plavix when she is able to tolerate medication and more awake and alert Request echo in the morning Probably will need ischemic workup before discharge AV fistula does not work She has a dialysis catheter in place Requesting ER physician for central line placement Significant amount of time was spent evaluating the patient take information from the medical DPOA Gaby who is at the bedside Coordinated care with nephrology and greenhouse specialist Previous records revealed that patient was taken off anticoagulating agent because of history of GI bleed, previous history of DVT however IVC filter was not placed after negative venous Doppler results last year Full code Medical DPOA is her daughter: Gaby UTI: Would use broad-spectrum antibiotic Constipation: Continue senna S Lower extremity pain avoid significant amount of opioids, will use gabapentin for neuropathic pain 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 The critical care time shown is in addition to time spent performing any reported separately billable procedures and includes the following: [x] Data and vital sign review and interpretation [x ] Patient assessment, examination and intervention [x] Medication orders and management [x] Patient/Family updates as able [x] Care Coordination and Documentation. Diagnoses Internal and external bleeding hemorrhoids K64.4; K64.8 Chronic constipation K59.09 ESRD (end stage renal disease) N18.6 Acute UTI N39.0 Anemia D64.9 Altered mental status R41.82 Dementia F03.90 Lives in assisted living facility Z59.3 Weakness R53.1 Lymphedema I89.0 Acute hypoxic on chronic hypercapnic respiratory failure J96.01; J96.12 Pulmonary embolism I26.99 Acute on chronic anemia D64.9
--- NOTE | 2023-08-01 17:05 | P.CONIM_ITS ---
Providers/Reason For Consult 2 Consulting Physician/Specialty*: [facility]/Nephrology Reason for Consult*: ESRD Primary Care Provider: Soren Waters DO History of Present Illness History of Present Illness Milla Thomas is a 88 year old female patient is a 88-year-old female with past medical history of end-stage renal disease on MW schedule as outpatient, presented to the emergency department due to altered mental status. Patient was noted to have severe hypoxic and hypercapnic respiratory failure was placed on BiPAP and was transferred to the ICU chest x-ray showed possible volume overload. Review of Systems 2 Narrative: Cannot obtain from patient Medications/Allergies Home Medications Medication Instructions Recorded Confirmed Last Taken Type acetaminophen 325 mg tablet 650 mg PO Q4H PRN Pain 11/13/19 08/01/23 07/26/23 History (Tylenol) citalopram 10 mg tablet (Celexa) 10 mg PO DAILY 11/13/19 08/01/23 08/01/23 History ipratropium 0.5 mg-albuterol 3 mg 3 ml inhalation Q4H PRN Shortness 11/13/19 08/01/23 Unknown History (2.5 mg base)/3 mL nebulization Of Breath soln vitamin B comp no.3-folic acid 1 1 tab PO DAILY 02/25/20 08/01/23 08/01/23 History mg-vit C 60 mg-biotin 300 mcg tablet (Marybel-Eugenio Rx) tamsulosin 0.4 mg capsule (Flomax) 0.4 mg PO BEDTIME 09/08/20 08/01/23 07/31/23 History calcium acetate(phosphat bind) 667 667 mg PO TID 03/29/21 08/01/23 08/01/23 History mg tablet bisacodyl 10 mg rectal suppository 10 mg OR DAILY PRN constipation 10/10/21 08/01/23 Unknown History cholecalciferol (vitamin D3) 25 25 mcg PO DAILY 10/10/21 08/01/23 08/01/23 History mcg (1,000 unit) capsule (Vitamin D3) elastic bandage 10/10/21 08/01/23 Unknown History elastic bandage 3 10/10/21 08/01/23 Unknown History ondansetron HCl 8 mg tablet 8 mg PO TID PRN nausea and vomiting 0408/01/23 07/26/23 History polyethylene glycol 3350 17 17 g PO DAILY PRN Constipation 01/19/23 08/01/23 07/27/23 History gram/dose oral powder sevelamer carbonate 800 mg tablet 800 mg PO TID 01/19/23 08/01/23 08/01/23 History diphenoxylate-atropine 2.5 1 tab PO QID PRN Diarrhea 02/01/23 08/01/23 07/26/23 History mg-0.025 mg tablet (Lomotil) witch maia 50 % topical pads 1 pad topical BID PRN Hemorrhoids 02/01/23 08/01/23 Unknown History (Hemorrhoidal (witch maia)) magnesium oxide 400 mg PO BID #30 caps 05/02/23 08/01/23 08/01/23 Rx oxycodone myristate 18 mg capsule 18 mg PO BID 30 days #60 ea 07/11/23 08/01/23 08/01/23 Rx sprinkle extended release 12hr(DON'T CRUSH) (Xtampza ER) hydrocodone 10 mg-acetaminophen 1 tab PO Q4H PRN Pain 30 days #180 07/22/23 08/01/23 08/01/23 Rx 325 mg tablet tabs albuterol sulfate 90 mcg/actuation 1 - 2 inh inhalation QID PRN 07/28/23 08/01/23 07/23/23 History aerosol inhaler Shortness Of Breath carboxymethylcellulose sodium 1 % 1 drp ophthalmic (eye) QID PRN Dry 07/28/23 08/01/23 Unknown History eye liquid gel drops Eyes cephalexin 500 mg capsule 500 mg PO TID 7 days #21 caps 07/28/23 08/01/23 Unknown Rx isosorbide mononitrate 10 mg tablet 10 mg PO QPM 07/28/23 08/01/23 07/30/23 History mirtazapine 7.5 mg tablet 7.5 mg PO BEDTIME 07/28/23 08/01/23 07/31/23 History pantoprazole 40 mg tablet,delayed 40 mg PO BID 07/28/23 08/01/23 08/01/23 History release sucralfate 100 mg/mL oral 10 ml PO QID 07/28/23 08/01/23 07/28/23 History suspension (Carafate) trazodone 50 mg tablet 25 mg PO BEDTIME 07/28/23 08/01/23 07/31/23 History amoxicillin 875 mg-potassium 1 tab PO BID #20 tabs 07/31/23 08/01/23 08/01/23 Rx clavulanate 125 mg tablet alprazolam 0.25 mg tablet 0.5 mg PO Q8H PRN Anxiety 08/01/23 08/01/23 08/01/23 History loperamide 2 mg tablet 2 mg PO Q8H PRN Diarrhea 08/01/23 08/01/23 Unknown History mineral oil 15 ml PO DAILY 08/01/23 08/01/23 08/01/23 History Allergies Allergy/AdvReac Type Severity Reaction Status Date / Time amitriptyline [From Elavil] Allergy Unknown Unknown Verified 08/01/23 12:42 cyclobenzaprine Allergy Unknown Unknown Verified 08/01/23 12:42 [From Flexeril] Penicillins Allergy Unknown Unknown Verified 08/01/23 12:42 pentazocine [From Talwin] Allergy Unknown Unknown Verified 08/01/23 12:42 pregabalin [From Lyrica] Allergy Unknown Unknown Verified 08/01/23 12:42 tizanidine Allergy Unknown Unknown Verified 08/01/23 12:42 doxycycline Allergy Unknown Verified 08/01/23 12:42 morphine Allergy Unknown Verified 08/01/23 12:42 naloxone Allergy Unknown Verified 08/01/23 12:42 Sulfa (Sulfonamide Allergy Unknown Verified 08/01/23 12:42 Antibiotics) sulfamethoxazole AdvReac kidney Verified 08/01/23 12:42 [From Bactrim] trimethoprim [From Bactrim] AdvReac kidney Verified 08/01/23 12:42 Current Medications Generic Name Dose Route Start Last Admin Trade Name Freq PRN Reason Stop Dose Admin Diltiazem HCl 100 mg/ Sodium 100 mls @ 0 mls/hr 08/01/23 15:00 08/01/23 15:26 Chloride IV 5 mg/hr .Q0M CONNOR 5 mls/hr Administration Protocol Per Protocol PFSH Acute 2 PFSH: Medical History Anemia Decubitus ulcer of left lower back, stage 2 DVT (deep venous thrombosis) Acute GI bleeding Chronic kidney disease Leg wound, left Non-STEMI (non-ST elevated myocardial infarction) ESRD (end stage renal disease) on dialysis Low BP Urinary tract infection Fall Acetabulum fracture, left Decubitus ulcer of buttock Hypoxemic respiratory failure, chronic Chronic diarrhea UTI (urinary tract infection) Lives in assisted living facility Swelling of both lower extremities Decubitus ulcer, buttock, right, unstageable Internal and external bleeding hemorrhoids Urinary retention Recurrent UTI Incomplete bladder emptying Restrictive lung disease Paroxysmal A-fib Anxiety and depression History of pulmonary embolus (PE) 08/2016 Lumbar spinal stenosis Fibromyalgia Hyperlipidemia History of breast cancer Previously followed by Dr. Santoyo Diastolic CHF ESRD (end stage renal disease) Peritoneal dialysis catheter in place Osteoarthritis DDD (degenerative disc disease) Hypertension GERD (gastroesophageal reflux disease) Anemia of chronic disease History of stroke 11/14/16 Surgical History S/P hemodialysis catheter insertion History of esophagogastroduodenoscopy (EGD) 08/03/17 mild gastritis and duodenitis History of hemiarthroplasty of left hip 11/18/18: Dr. Mendoza History of back surgery History of lumpectomy of left breast History of right cataract surgery History of hysterectomy Family History Other Cancer Denies family history of Anesthesia complication Bleeding disorder Social History Second hand smoke exposure: No Alcohol intake: never Substance/Drug Use: never Additional social history: FULL CODE DISCUSSED WITH PATIENT ON 02/04/20 Adopted: No Caregiver/support person: Yes Lives independently: Yes Housing: Assisted Living Facility Marital status: Marital status details: with dementia Vitals/I&O/Wt Last Vital Signs Temp 98.9 F 08/01/23 12:33 Pulse 103 H 08/01/23 15:00 Resp 18 08/01/23 12:33 BP 161/103 08/01/23 12:33 Pulse Ox 95 08/01/23 15:00 O2 Del Method Nasal Cannula 08/01/23 12:33 O2 Flow Rate 5 08/01/23 12:33 FiO2 35 08/01/23 15:00 Weight last 48 hrs Weight 63.503 kg Physical Exam 2 Narrative: On BiPAP Data 08/02/23 03:59 08/02/23 04:29 A&P Assessment and plan (1) ESRD (end stage renal disease): Plan 1. End-stage renal disease: On MWF schedule as outpatient, presented with volume overload, via tunneled catheter, AV fistula nonfunctional 2. Acute on chronic respiratory failure, on BiPAP 3. NSTEMI 4. Anemia, monitor Patient evaluated using audiovisual cart. Time spent 30 minutes. Consult Attestations 2 Medical Necessity Statement: Per medicine team Coding Level of Care Code Acute Code for Chg Fwd Diagnoses ESRD (end stage renal disease) N18.6
[2023-08-01 17:11] LABS: ABG PH Result 7.22 (7.35-7.45); Alveolar-Arterial Oxygen Gradi 11.6 mmHg (5-10); Arterial Blood Gas Hematocrit 30.7 % (37-47); Base Excess ABG -3.3 mmol/L (-2.0-2.0); Blood Gas Allen Test Pos; Blood Gas Operator Identificat CAK; Blood Gas Sample Site Radial, right; Blood Gas Sample Type Arterial; Carboxyhemoglobin < 0.0 %THgb (0.4-20.1); HGB O2 Sat 93.8 % (95-100); Ionized Calcium Level - ABG 1.3 mmol/L (1.1-1.4); Methemoglobin 0.6 % (0.4-1.5); Oxygen Device BIPAP; Oxygen Saturation ABG 94.3; PO2 ABG 85.9 mmHg (80.0-100.0); PO2 FiO2 Ratio Arterial Blood 0; Potassium Level - ABG 4.3 mmol/L (3.5-5.0)
[2023-08-01 17:12] LABS: ABG PCO2 61.9 mmHg (35-45)
[2023-08-01 17:14] LABS: Ammonia 52 umol/L (11-51); Lactic Sepsis W/Reflex 0.7 mmol/L (0.5-2.2)
--- NOTE | 2023-08-01 18:13 | XRR_ITS ---
PROCEDURE INFORMATION: Exam: XR Chest Exam date and time: 08/01/2023 6:22 PM Age: 88 years old Clinical indication: Device placement; Other: Central line; Additional info: Central line placement, left subclavian vein TECHNIQUE: Imaging protocol: Radiologic exam of the chest. Views: 1 view. COMPARISON: CR XR chest 1V portable [id number] 08/01/2023 12:41 PM FINDINGS: Tubes, catheters and devices: Tunneled dialysis catheter remains in place with its tip in the superior vena cava near the cavoatrial junction. There is new left subclavian central venous catheter with its tip in the superior vena cava. Lungs: There is some retrocardiac consolidation or atelectasis in the left lower lobe not significantly changed. No new infiltrate is identified. Pleural spaces: Unremarkable. No pleural effusion. No pneumothorax. Heart/Mediastinum: Heart is within normal limits of size. Bones/joints: Unremarkable. XR/XR chest 1V portable [id number] IMPRESSION: 1. No pneumothorax following left subclavian line placement. 2. Left basilar infiltrate not significantly changed.
--- NOTE | 2023-08-01 18:35 | ECG_ITS ---
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 Measurements Intervals [place] Rate: 77 P: 99 TN: 236 QRS: 22 QRSD: 99 T: 56 QT: 374 QTc: 423 Interpretive Statements SINUS RHYTHM WITH FIRST DEGREE AV BLOCK NONSPECIFIC T-WAVE ABNORMALITY Compared to ECG 08/01/2023 14:51:23 First degree AV block now present T-wave abnormality now present Atrial fibrillation no longer present Left ventricular hypertrophy no longer present Myocardial infarct finding no longer present Electronically Signed On 08-01-2023 20:19:06 SENIOR INVESTMENT ANALYST by Lani Baxter M.D. [id number]
[2023-08-01 18:44] LABS: D Dimer 1.53 ug/mLFEU (0-0.59)
[2023-08-01 18:56] LABS: Procalcitonin 0.45 ng/mL (0-0.5)
--- NOTE | 2023-08-01 18:56 | USCV_ITS ---
Milla Thomas Age: 88 Gender: F : 1935 Exam Date: 08/01/2023 19:14 Ordering Phys: Marycarmen Mcrae MD Technologist: DEE Exam Location: [facility] – [place] Indication: NSTEMI. No history of cardiac intervention per patient's family. BP: 145 / 75 HR: 67 Rhythm: Sinus Technical Quality: Adequate MEASUREMENTS (Male / Female) Normal Values 2D ECHO LV Diastolic Diameter PLAX 3.7 cm 4.2 - 5.9 / 3.9 - 5.3 cm LV Systolic Diameter PLAX 2.6 cm IVS Diastolic Thickness 0.9 cm 0.6 - 1.0 / 0.6 - 0.9 cm IVS Systolic Thickness 1.0 cm LVPW Diastolic Thickness 0.9 cm 0.6 - 1.0 / 0.6 - 0.9 cm LVPW Systolic Thickness 0.9 cm LVOT Diameter 1.7 cm LV Ejection Fraction 2D Teich 56.0 % LV Ejection Fraction MOD 2C 51.3 % LV Ejection Fraction 2C AL 52.0 % LA Diameter 4.0 cm LA Width 3.2 cm LA Height 5.0 cm RA Width 2.8 cm RA Height 4.2 cm Aorta at Sinotubular Diameter 2.3 cm IVC Diameter 1.8 cm M-MODE Aortic Annulus Diameter 3.4 cm LA Ao Ratio MM 1.1 DOPPLER AV Peak Velocity 175.0 cm/s LVOT Peak Velocity 122.0 cm/s AV Area Cont Eq vti 2.0 cm squared AV Area Cont Eq pk 1.6 cm squared MV Peak Velocity 95.0 cm/s MV Area PHT 3.7 cm squared Mitral E to A Ratio 1.1 MV E' Velocity 44.0 cm/s Mitral E to MV E' Ratio 9.5 Mitral E to LV E' Lateral Ratio 8.2 Mitral E to LV E' Septal Ratio 11.5 TR Peak Velocity 301.0 cm/s TR Peak Gradient 36.2 mmHg TV Peak E Velocity 39.0 cm/s Right Atrial Pressure 5.0 mmHg Pulmonary Artery Systolic Pressu 41.2 mmHg PV Peak Velocity 115.0 cm/s RV Acceleration Time 0.1 s RV Ejection Time 0.4 s RV AcT/ET 0.2 FINDINGS Left Ventricle Normal left ventricular size and systolic function, EF 57 %. Grade I/IV diastolic dysfunction (abnormal relaxation filling pattern), normal to mildly elevated filling pressures. Right Ventricle The right ventricle is normal in size and function. Right Atrium The right atrium is normal in size. Left Atrium Mildly increased left atrial size. Mitral Valve Mild mitral annular calcification. Aortic Valve No gross abnormalities noted Tricuspid Valve No gross abnormalities noted Pulmonic Valve Structurally normal pulmonic valve without significant stenosis. There is no pulmonic regurgitation. Pericardium Normal pericardium without effusion. Aorta Plaque seen in the ascending aorta. IVC Normal inferior vena cava. CONCLUSIONS Normal left ventricular size and systolic function, EF 57 %. Type I diastolic dysfunction. Mild mitral annular calcification. Mildly increased left atrial size. No significant valvular lesions. There is no pericardial effusion. There are no intracardiac masses. Compared to the study from 02/02/2023, there may not be a significant change Dr Lani Baxter MD [facility] (Electronically Signed) Final Date: 02 August 2023 18:10 S
[2023-08-01 19:19] LABS: Troponin 5 6HR Delta -6.3 ng/L (0-12)
[2023-08-01 19:20] LABS: Troponin 5 6HR 226.7 ng/L (0-10)
[2023-08-01 20:21] LABS: Adenovirus Not Detected (NOT DETECT); Chlamydia Pneumoniae Not Detected (NOT DETECT); Coronavirus 229E,HKU1,NL63,OC4 Not Detected (NOT DETECT); Human Metapneumovirus Not Detected (NOT DETECT); Human Rhinovirus/Enterovirus Not Detected (NOT DETECT); Influenza A Not Detected (NOT DETECT); Influenza A H1 Not Detected (NOT DETECT); Influenza A H1-2009 Not Detected (NOT DETECT); Influenza A H3 Not Detected (NOT DETECT); Influenza B Not Detected (NOT DETECT); Mycoplasma Pneumoniae Not Detected (NOT DETECT); Parainfluenza Virus Type 1 Not Detected (NOT DETECT); Parainfluenza Virus Type 2 Not Detected (NOT DETECT); Parainfluenza Virus Type 3 Not Detected (NOT DETECT); Parainfluenza Virus Type 4 Not Detected (NOT DETECT); Respiratory Syncytial Virus A Not Detected (NOT DETECT); Respiratory Syncytial Virus B Not Detected (NOT DETECT); SARS-COV-2 Not Detected (NOT DETECT)
[2023-08-01] MEDS: iohexol 350 mg/mL 500 mL Btl (per mL) IV (20:34)
--- NOTE | 2023-08-01 21:00 | PC.NURSE ---
Skin Assessment: On arrival to ICU pt is noted to have 4 open wounds. L. FA: Skin Tear L. Anterior Thigh: Skin Tear L. Buttock: Pressure Injury, Stage 2 Sacrum: Pressure Injury, Stage 2 Barrier cream at bedside, turning Q2HR, pillows placed on kris prominences, pt is on an air mattress.
[2023-08-01] MEDS: heparin drip 25,000 UNIT/500 ML PREMIX 17.78 UNIT IV (21:03)
[2023-08-01] MEDS: norepinephrine 4 MG/250 ML BAG 22.5 MG IV (21:08)
[2023-08-01] MEDS: albumin 12.5 GM/50 ML VIAL IV ×2 (21:10→21:44)
[2023-08-01] MEDS: heparin, porcine 1,000 unit/mL INJ 10 mL 1000 UNIT IV (21:11)
[2023-08-01] MEDS: methylPREDNISolone sod succ 40 mg/mL INJ IVP (21:19)
[2023-08-01] MEDS: pantoprazole 40 mg SDV IVP (21:22)
[2023-08-01] MEDS: cefepime 1,000 MG in sodium chloride 0.9% (plus) 50 ML 100 MG IV (21:24)
[2023-08-01] MEDS: epoetin alfa 1000 Unit/0.05 mL (ESRD) 20000 UNIT IVP (21:40)
--- NOTE | 2023-08-01 23:02 | PC.NURSE ---
Arrival to ICU: Pt arrived to ICU 10 @2030, continuos cardiac monitoring continued. Pt is alert but lethargic and is not orientated. She believes she is in [place] despite frequent reorientation and will not state her name. Admission assessment re-timed d/t AMS and no family at bedside. Dialysis was started soon after pts arrival and BP had a notable drop despite albumin. Dr. Esquivel called @2100 and a new order for Levophed was given. See MAR for titration. Pt noted to have a fistula to the L. UA. No thrill felt or bruit heard, restricted extremity band in place. Radha, dialysis nurse aware. Dialysis taking place in R. Chest dialysis catheter. Attempted to give pt ordered plavix and senna but she was unagreeable to this, turning her head away and would not swallow the pills. Pills removed from pt mouth. Dr. Esquivel notified @215. Order to not give the medication at this time. At 2245 a new weight was taken. New weight significantly different from previously charted weight. CPS [facility] called @225 to change Heparin dosing weight. Heparin was adjusted per new weight, See MAR for titrations.
[2023-08-01 23:12] LABS: Bilirubin Urine 1+ (Negative); Blood Urine Neg (Negative); Glucose Urine UA Norm (Normal); Ketones Urine Negative (Negative); Nitrate Urine Negative (Negative); Protein Urine 3+ (Negative); Specific Gravity, Urine 1.015 (1.005-1.030); Urine Appearance SL Hazy (CLEAR); Urine Color Yellow (Yellow); Urobilinogen Urine Norm (Negative); pH Urine 5 (5-7)
[2023-08-01 23:13] LABS: Add Urine Microscopic? YES; Bacteria Urine TRACE /hpf; Leukocyte Esterase Urine 2+ (Negative); RBC Urine 0-4 /hpf (0-2); Squamous Epithelial Cell Urine 0-4 /hpf (0-5); WBC Urine >100 /hpf (0-5)
[2023-08-01 23:14] LABS: Add Urine Culture? Yes
[2023-08-02] VITALS (102 sets, daily range): BP systolic 84–161; BP diastolic 39–96; PULSE 50–110; RESP 2–28; TEMP 36.5–37.6; O2SAT 93–99
[2023-08-02] MEDS: heparin, porcine 1,000 unit/mL INJ 10 mL 10000 UNIT INTRACATH (00:05)
[2023-08-02] MEDS: vancomycin 1,000 MG in sodium chloride 0.9% 250 ML 250 MG IV (00:20)
--- NOTE | 2023-08-02 00:21 | PC.NURSE ---
Vancomycin: Given late because pt was receiving dialysis. Dr. Esquivel aware.
[2023-08-02 04:12] LABS: Basophils % 0.1 %; Hematocrit 33.6 % (36-47); Lymphocytes # 0.2 10^3/uL (0.8-4.8); Lymphocytes % 2.5 %; Mean Corpuscular HGB Conc 30.1 g/dL (30-55); Mean Corpuscular Hemoglobin 34.7 pg (27-33); Mean Corpuscular Volume 115.5 fl (85-98); Mean Platelet Volume 10.1 fL (7.4-10.4); Monocytes # 0.2 10^3/uL (0.2-0.9); Neutrophils # 6.85 10^3/uL (1.8-7.7); Nucleated Red Blood Cells % 0 %; Platelet Count 137 10^3/cmm (157-399); Red Blood Count 2.91 10^6/uL (3.85-5.65); White Blood Count 7.29 10^3/uL (3.29-11.43)
[2023-08-02 04:24] LABS: Arterial Blood Gas Hematocrit 31.1 % (37-47); Base Excess ABG -4.5 mmol/L (-2.0-2.0); Blood Gas Allen Test Pos; Blood Gas Sample Site Brachial, right; Blood Gas Sample Type Arterial; HCO3 ABG 24.4 mmol/L (22-26); Oxygen Device BIPAP; PO2 FiO2 Ratio Arterial Blood 0
[2023-08-02 04:26] LABS: ABG PCO2 65.2 mmHg (35-45); ABG PH Result 7.18 (7.35-7.45)
[2023-08-02 05:11] LABS: Anion Gap 19.9 (5-19); Blood Urea Nitrogen 22 mg/dL (8-23); C Reactive Protein 35.6 mg/L (0.0-4.9); Carbon Dioxide 21 mmol/L (22-29); Chloride 98 mmol/L (98-107); Glucose 89 mg/dL (65-115); Magnesium 2.9 mg/dL (1.7-2.3); Osmolality Calculated 283 mOsm/kg (285-295); Partial Thromboplastin Time 65.6 SECONDS (23.9-36.7); Phosphorus 3.6 mg/dL (2.5-4.5); Potassium 3.9 mmol/L (3.5-5.1); Sodium 135 mmol/L (136-145)
[2023-08-02] MEDS: cefepime 1,000 MG in sodium chloride 0.9% (plus) 50 ML 100 MG IV (06:08)
[2023-08-02] MEDS: methylPREDNISolone sod succ 40 mg/mL INJ IVP ×2 (06:10→18:39)
[2023-08-02] MEDS: ipratropium-albuterol 3 mL Neb INHALATION ×2 (09:10→13:44)
[2023-08-02 10:41] LABS: ABG PCO2 45.7 mmHg (35-45); ABG PH Result 7.28 (7.35-7.45); Alveolar-Arterial Oxygen Gradi 16.2 mmHg (5-10); Arterial Blood Gas Hematocrit 31.2 % (37-47); Base Excess ABG -5.2 mmol/L (-2.0-2.0); Blood Gas Allen Test Pos; Blood Gas Sample Site Radial, right; Blood Gas Sample Type Arterial; HCO3 ABG 21.4 mmol/L (22-26); HGB O2 Sat 91.6 % (95-100); Ionized Calcium Level - ABG 1.3 mmol/L (1.1-1.4); Methemoglobin 0.7 % (0.4-1.5); Oxygen Device BIPAP; Oxygen Saturation ABG 92.3; PO2 ABG 68.8 mmHg (80.0-100.0); PO2 FiO2 Ratio Arterial Blood 0; Potassium Level - ABG 3.8 mmol/L (3.5-5.0); Total Hemoglobin 10.2 g/dL (12-16)
[2023-08-02 11:37] LABS: Partial Thromboplastin Time 73.3 SECONDS (23.9-36.7)
--- NOTE | 2023-08-02 12:17 | P.PN_ITS ---
Subjective 2 Subjective: Patient did not improve on BiPAP overnight This morning was discharged to [facility] which showed significant improvement No fever Patient still obtunded Family is at the bedside Potassium 3.9 Signs of fluid load improving Minimal urine output Lactic acid 0.7 She does have greater than 100 white count on urinalysis COVID-negative CT chest did not show PE no signs of DVT She has a right-sided central line subclavian Vitals/I&O/Wt Last Vital Signs Temp 97.7 F 08/02/23 06:15 Pulse 67 08/02/23 11:25 Resp 12 08/02/23 09:15 BP 115/60 08/02/23 10:00 Pulse Ox 98 08/02/23 11:25 O2 Del Method BiPAP 08/02/23 09:14 O2 Flow Rate 4 08/01/23 20:45 FiO2 30 08/02/23 11:25 08/01/23 08/02/23 08/02/23 22:59 06:59 14:59 Intake Total 160.917 / 160.917 542.509 / 703.426 Output Total 100 / 100 Balance 160.917 / 160.917 442.509 / 603.426 Weight last 48 hrs Weight 55.883 kg Weight 56.88 kg Weight 63.503 kg Physical Exam 2 Narrative: Drowsy Currently on BiPAP Saturating well Hemodynamically stable Right-sided subclavian central line in place Paula catheter with minimal urine output Abdomen soft Patient is not able to follow commands Abdomen soft Son at the bedside Urinary Catheter Management: Paula: Cath Placed During This Visit: yes Reason for Continuing Indwelling Catheter: Accurate Measurement of Urinary Output in Critically Ill Patients Urinary Catheter Date of Insertion: 08/01/23 Urinary Catheter Time of Insertion: 22:40 Data 08/02/23 03:59 08/02/23 04:29 A&P Assessment and plan (1) Pulmonary embolism: (2) Internal and external bleeding hemorrhoids: (3) Chronic constipation: (4) ESRD (end stage renal disease): (5) Urinary tract infection: Qualifiers: Hematuria presence: without hematuria Urinary tract infection type: s ite unspecified Qualified Code(s): N39.0 - Urinary tract infection, site not specified (6) Anemia: (7) Altered mental status: (8) Acute hypoxic on chronic hypercapnic respiratory failure: (9) Lives in assisted living facility: (10) Lymphedema: (11) Weakness: Plan Metabolic encephalopathy related to hypercapnia Acute hypoxic hypercarbic respite failure Patient at risk of intubation However on current AVAPS setting her pCO2 has improved Will keep her on BiPAP challenges she want people to eat until she is fully awake and alert Which can cause dehydration and hypernatremia Acute pulmonary embolism No sign of DVT Currently she is on therapeutic heparin regimen Acute on chronic anemia Monitor for any signs of recurrent GI bleed In the past Eliquis was held secondary to GI bleed UTI Continue to biotics Continue cefepime she has Proteus which is sensitive to cephalosporins Continue Protonix for GI ulcer protection/prophylaxis Constipation: We will give her an enema today as well Non-STEMI: It could be related to pulmonary embolism Echo report is pending Hemodynamically stable Did not require Levophed all night Guarded prognosis Renal mass noted on CT abdomen pelvis, Distended gallbladder, Will request ultrasound and monitor with CMP She is afebrile I will change her antibiotics to Zosyn at this point 2 cm hypodense right kidney mass larger than previous CT scan Patient was evaluated multiple times, multiple family meetings Attestations 2 Medical Necessity Statement*: Continue ICU management Coding Level of Care Code Critical Care >/= 30 minutes Critical care time (in minutes): 30 The high probability of a clinically significant, sudden or life threatening deterioration, as referenced in this documentation, required my full and direct attention, intervention and personal management. The critical care time shown is in addition to time spent performing any reported separately billable procedures and includes the following: [x] Data and vital sign review and interpretation [x ] Patient assessment, examination and intervention [x] Medication orders and management [x] Patient/Family updates as able [x] Care Coordination and Documentation. Diagnoses Pulmonary embolism I26.99 Internal and external bleeding hemorrhoids K64.4; K64.8 Chronic constipation K59.09 ESRD (end stage renal disease) N18.6 Urinary tract infection N39.0 Hematuria presence: without hematuria Urinary tract infection type: site unspecified Anemia D64.9 Altered mental status R41.82 Acute hypoxic on chronic hypercapnic respiratory failure J96.01; J96.12 Lives in assisted living facility Z59.3 Lymphedema I89.0 Weakness R53.1
[2023-08-02] MEDS: aztreonam 1,000 MG in sodium chloride 0.9% (plus) 50 ML 100 MG IV (13:40)
[2023-08-02] MEDS: metroNIDAZOLE IV 500 MG/100 ML PREMIX 100 MG IV ×2 (13:40→21:01)
--- NOTE | 2023-08-02 13:59 | P.PN_ITS ---
Subjective 2 Medications: Reviewed: Yes Vitals/I&O/Wt Last Vital Signs Temp 97.7 F 08/02/23 06:15 Pulse 98 08/02/23 13:49 Resp 18 08/02/23 13:47 BP 134/65 08/02/23 13:30 Pulse Ox 98 08/02/23 13:49 O2 Del Method BiPAP 08/02/23 13:47 O2 Flow Rate 4 08/01/23 20:45 FiO2 30 08/02/23 13:49 08/01/23 08/02/23 08/02/23 22:59 06:59 14:59 Intake Total 160.917 / 160.917 542.509 / 703.426 Output Total 100 / 100 Balance 160.917 / 160.917 442.509 / 603.426 Weight last 48 hrs Weight 55.883 kg Weight 56.88 kg Weight 63.503 kg Physical Exam 2 Narrative: On BiPAP Urinary Catheter Management: Paula: Cath Placed During This Visit: yes Reason for Continuing Indwelling Catheter: Accurate Measurement of Urinary Output in Critically Ill Patients Urinary Catheter Date of Insertion: 08/01/23 Urinary Catheter Time of Insertion: 22:40 Data 08/02/23 03:59 08/02/23 04:29 A&P Assessment and plan (1) ESRD (end stage renal disease): Plan 1. End-stage renal disease: On MW schedule as outpatient, presented with volume overload, via tunneled catheter, AV fistula nonfunctional 2. Acute on chronic respiratory failure, on BiPAP 3. NSTEMI 4. Anemia, monitor Patient evaluated using audiovisual cart. Time spent 30 minutes. Attestations 2 Medical Necessity Statement*: Per medicine team Coding Level of Care Code Acute Code for Chg Fwd Diagnoses ESRD (end stage renal disease) N18.6
[2023-08-02 16:50] LABS: ABG PCO2 47.6 mmHg (35-45); ABG PH Result 7.25 (7.35-7.45); Base Excess ABG -6.3 mmol/L (-2.0-2.0); Blood Gas Allen Test Pos; Blood Gas Operator Identificat GD; Blood Gas Sample Site Radial, right; Blood Gas Sample Type Arterial; HCO3 ABG 20.8 mmol/L (22-26); Oxygen Device BIPAP; PO2 FiO2 Ratio Arterial Blood 0
--- NOTE | 2023-08-02 17:01 | ECG_ITS ---
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 Measurements Intervals [place] Rate: 102 P: 82 W[place]: 235 QRS: 33 QRSD: 96 T: 66 QT: 337 QTc: 440 Interpretive Statements SINUS TACHYCARDIA WITH FIRST DEGREE AV BLOCK NONSPECIFIC T-WAVE ABNORMALITY Compared to ECG 08/01/2023 19:07:27 Sinus rhythm no longer present T-wave abnormality still present Electronically Signed On 08-02-2023 21:45:20 TOOL AND CUTTER GRINDER by Lani Baxter M.D. [id number]
[2023-08-02] MEDS: dexmedeTOMIDine 0.9 % NaCL 400 MCG/100 ML PREMIX IV (17:41)
[2023-08-02] MEDS: pantoprazole 40 mg SDV IVP (17:46)
[2023-08-02 20:40] LABS: Partial Thromboplastin Time 54.7 SECONDS (23.9-36.7)
[2023-08-02 21:18] LABS: ABG PCO2 50.1 mmHg (35-45); ABG PH Result 7.26 (7.35-7.45); Alveolar-Arterial Oxygen Gradi 9.9 mmHg (5-10); Arterial Blood Gas Hematocrit 30.7 % (37-47); Base Excess ABG -4.9 mmol/L (-2.0-2.0); Blood Gas Operator Identificat JB; Blood Gas Sample Site Brachial, right; Blood Gas Sample Type Arterial; Carboxyhemoglobin < 0.0 %THgb (0.4-20.1); HCO3 ABG 22.3 mmol/L (22-26); HGB O2 Sat 91.8 % (95-100); Ionized Calcium Level - ABG 1.3 mmol/L (1.1-1.4); Methemoglobin 1.1 % (0.4-1.5); Oxygen Saturation ABG 92.8; PO2 ABG 76.7 mmHg (80.0-100.0); PO2 FiO2 Ratio Arterial Blood 0; Potassium Level - ABG 3.8 mmol/L (3.5-5.0)
--- NOTE | 2023-08-02 21:23 | PC.NURSE ---
Vanc order noted to be associated with dialysis. Order clarified and Non administered. Vanc trough to be drawn prior to next dialysis.
--- NOTE | 2023-08-02 21:47 | USCV_ITS ---
Milla Thomas Age: 88 Gender: F : 1935 Exam Date: 08/02/2023 04:22 Ordering Phys: Rasheed Esquivel MD Technologist: DEE [place] [facility] [place]: pe HISTORY: pe. patient is on BIPAP in ICU-10 PROCEDURES: Venous duplex imaging was performed in bilateral lower extremities. The following venous structures were evaluated: common femoral vein, profunda vein, proximal portion of the greater saphenous vein, superficial femoral vein, and the popliteal vein. In addition, the posterior tibial veins were evaluated. Serial compression, augmentation maneuvers, and spectral Doppler flow evaluation were performed, which were normal. Bilaterally, the common femoral, superficial femoral, profunda femoral, popliteal, posterior tibial, and greater saphenous veins were identified and interrogated in the standard fashion. These veins were found to be easily compressible with spontaneous blood flow. No evidence of thrombus noted. CONCLUSIONS No evidence of right lower extremity DVT. No evidence of left lower extremity DVT. Herve Dwyer MD (Electronically Signed) Final Date: 02 August 2023 09:24 S
[2023-08-03] VITALS (56 sets, daily range): BP systolic 103–168; BP diastolic 49–78; PULSE 52–100; RESP 0–31; TEMP 35.7–37.3; O2SAT 93–100
[2023-08-03] MEDS: aztreonam 1,000 MG in sodium chloride 0.9% (plus) 50 ML 100 MG IV ×2 (00:59→13:23)
--- NOTE | 2023-08-03 03:38 | NUR.SHIFT ---
Patient had no acute events overnight. Remains on Bipap with Sp02 of 95-98%. Patient remains confused and oriented only to person. Frequent turns provided due to decreased nutritional intake and existing pressure wounds. Patient awakes with confusion and anxiety however reorientates well and cooperates with staff.
[2023-08-03 03:48] LABS: ABG PH Result 7.25 (7.35-7.45); Arterial Blood Gas Hematocrit 32.3 % (37-47); Base Excess ABG -4.7 mmol/L (-2.0-2.0); Blood Gas Operator Identificat JB; Blood Gas Sample Site Brachial, right; Blood Gas Sample Type Arterial; HCO3 ABG 22.8 mmol/L (22-26); Oxygen Device BIPAP; PO2 FiO2 Ratio Arterial Blood 0
[2023-08-03] MEDS: metroNIDAZOLE IV 500 MG/100 ML PREMIX 100 MG IV ×2 (05:09→13:23)
[2023-08-03] MEDS: heparin drip 25,000 UNIT/500 ML PREMIX 17 UNIT IV (05:16)
[2023-08-03 05:34] LABS: Eosinophils % 0.2 %; Hematocrit 32.9 % (36-47); Lymphocytes # 0.6 10^3/uL (0.8-4.8); Lymphocytes % 9.7 %; Mean Corpuscular HGB Conc 31.9 g/dL (30-55); Mean Corpuscular Hemoglobin 34.8 pg (27-33); Mean Corpuscular Volume 108.9 fl (85-98); Mean Platelet Volume 10.4 fL (7.4-10.4); Monocytes # 0.5 10^3/uL (0.2-0.9); Monocytes % 7.4 %; Neutrophils # 5.25 10^3/uL (1.8-7.7); Neutrophils % 82.2 %; Nucleated Red Blood Cells % 0 %; Platelet Count 152 10^3/cmm (157-399); Red Blood Count 3.02 10^6/uL (3.85-5.65); Red Cell Distribution Width 15.4 % (12.1-15.1); White Blood Count 6.38 10^3/uL (3.29-11.43)
[2023-08-03 05:49] LABS: Partial Thromboplastin Time 48.8 SECONDS (23.9-36.7)
[2023-08-03 05:52] LABS: Alanine Aminotransferase 8 U/L (0-33); Albumin Level 3.2 g/dL (3.5-5.2); Alkaline Phosphatase 63 U/L (35-105); Blood Urea Nitrogen 40 mg/dL (8-23); Calcium 8.7 mg/dL (8.5-10.5); Carbon Dioxide 21 mmol/L (22-29); Chloride 97 mmol/L (98-107); Glucose 112 mg/dL (65-115); Osmolality Calculated 291 mOsm/kg (285-295); Sodium 135 mmol/L (136-145); Total Bilirubin 0.2 mg/dL (0.15-1.2); Total Protein 5.2 g/dL (6.6-8.7)
[2023-08-03 05:53] LABS: Anion Gap 21.6 (5-19); Potassium 4.6 mmol/L (3.5-5.1)
[2023-08-03 05:54] LABS: Aspartate Amino Transferase 18 U/L (0-32)
[2023-08-03] MEDS: methylPREDNISolone sod succ 40 mg/mL INJ IVP (06:11)
[2023-08-03] MEDS: dexmedeTOMIDine 0.9 % NaCL 400 MCG/100 ML PREMIX IV (06:11)
[2023-08-03] MEDS: ipratropium-albuterol 3 mL Neb INHALATION (08:25)
[2023-08-03] MEDS: clopidogrel 75 mg Tablet PO (09:29)
[2023-08-03] MEDS: sennosides-docusate Tablet 2 TAB PO (09:29)
[2023-08-03] MEDS: pantoprazole 40 mg SDV IVP (09:29)
--- NOTE | 2023-08-03 10:49 | P.PN_ITS ---
Subjective 2 Subjective: Patient is getting dialyzed today Much more awake as compared to yesterday I would like to give a trial of eating off BiPAP She is still dependent on BiPAP Will start TPN, consult dietitian Vitals/I&O/Wt Last Vital Signs Temp 97.6 F 08/03/23 08:00 Pulse 78 08/03/23 09:30 Resp 17 08/03/23 09:30 BP 123/59 08/03/23 09:30 Pulse Ox 96 08/03/23 08:20 O2 Del Method BiPAP 08/03/23 08:15 O2 Flow Rate 4 08/01/23 20:45 FiO2 30 08/03/23 08:20 08/02/23 08/03/23 08/03/23 22:59 06:59 14:59 Intake Total 355.464 / 505.464 180.167 / 685.631 Balance 355.464 / 505.464 180.167 / 685.631 Weight last 48 hrs Weight 55.792 kg Weight 55.883 kg Weight 56.88 kg Weight 63.503 kg Physical Exam 2 Narrative: This morning patient is able to open her eyes on verbal command She knows that her son is in the room Clinically very dehydrated Getting dialysis at the moment Currently on BiPAP Abdomen soft Paula catheter in place S1, S2 FiO2 30% Urinary Catheter Management: Paula: Cath Placed During This Visit: yes Reason for Continuing Indwelling Catheter: Accurate Measurement of Urinary Output in Critically Ill Patients Urinary Catheter Date of Insertion: 08/01/23 Urinary Catheter Time of Insertion: 22:40 Data 08/03/23 05:01 08/03/23 05:01 A&P Assessment and plan (1) Pulmonary embolism: (2) Internal and external bleeding hemorrhoids: (3) Acute UTI: (4) ESRD (end stage renal disease): (5) Anemia: (6) Altered mental status: (7) Dementia: (8) Acute hypoxic on chronic hypercapnic respiratory failure: (9) Lives in assisted living facility: (10) Chronic constipation: Plan Acute hypoxic hypercarbic respiratory failure Getting BiPAP dependent I will like to give her a break from BiPAP and do a trial of eating She is currently on Precedex I have requested nurse to turn it off Dehydration Start TPN requested dietary consultation Continue steroids and broad-spectrum antibiotics UTI: Continue antibiotic End-stage renal disease, getting dialyzed today Non-STEMI: Likely PE related, currently on heparin drip for acute PE Patient has not eaten since her admission She has been on BiPAP Full code Like to keep her in ICU Constipation: Will give another dose of enema today Attestations 2 Medical Necessity Statement*: Continue ICU management Diagnoses Pulmonary embolism I26.99 Internal and external bleeding hemorrhoids K64.4; K64.8 Acute UTI N39.0 ESRD (end stage renal disease) N18.6 Anemia D64.9 Altered mental status R41.82 Dementia F03.90 Acute hypoxic on chronic hypercapnic respiratory failure J96.01; J96.12 Lives in assisted living facility Z59.3 Chronic constipation K59.09
[2023-08-03 11:41] LABS: Partial Thromboplastin Time 179.6 SECONDS (23.9-36.7)
--- NOTE | 2023-08-03 11:42 | PC.NUTR ---
initiate TPN via central access follwing RD recs below: AA/Dex (5/20%) with standard lytes, added MV starting @ 12 ml/hr and advance 10 ml/hr q8 until goal of 42 ml/hr. hang 20gm/100ml 20% lipids q24. see mosts recent RD reassessment for details
--- NOTE | 2023-08-03 13:30 | P.PN_ITS ---
Subjective 2 Subjective: hd today Medications: Reviewed: Yes Vitals/I&O/Wt Last Vital Signs Temp 96.3 F L 08/03/23 13:28 Pulse 55 L 08/03/23 13:28 Resp 20 H 08/03/23 13:28 BP 130/56 08/03/23 13:28 Pulse Ox 95 08/03/23 13:00 O2 Del Method BiPAP 08/03/23 08:15 O2 Flow Rate 4 08/01/23 20:45 FiO2 30 08/03/23 08:20 08/02/23 08/03/23 08/03/23 22:59 06:59 14:59 Intake Total 355.464 / 505.464 330.167 / 835.631 Balance 355.464 / 505.464 330.167 / 835.631 Weight last 48 hrs Weight 55.792 kg Weight 55.883 kg Weight 56.88 kg Physical Exam 2 Narrative: On BiPAP Urinary Catheter Management: Paula: Cath Placed During This Visit: yes Reason for Continuing Indwelling Catheter: Accurate Measurement of Urinary Output in Critically Ill Patients Urinary Catheter Date of Insertion: 08/01/23 Urinary Catheter Time of Insertion: 22:40 Data 08/03/23 05:01 08/03/23 05:01 Micro: Microbiology 08/01/23 22:41 Urine Culture - Preliminary Urine,Clean Catch A&P Assessment and plan (1) ESRD (end stage renal disease): Plan 1. End-stage renal disease: On MWF schedule as outpatient, presented with volume overload, via tunneled catheter, AV fistula nonfunctional 2. Acute on chronic respiratory failure, 3. NSTEMI 4. Anemia, monitor family considering comfort care Patient evaluated using audiovisual cart. Time spent 30 minutes. Attestations 2 Medical Necessity Statement*: per [place] Coding Level of Care Code Acute Code for Chg Fwd Diagnoses ESRD (end stage renal disease) N18.6
--- NOTE | 2023-08-03 13:30 | PC.HD ---
Currently unable to access MAR to chart dialysis meds. Administered heparin 1000 units loading dose @ 0838 via HD catheter venous port Administered heparin 500 units maintenance dose @ 0930 via HD circuit Administered heparin 500 units maintenance dose @ 1030 via HD circuit Administered heparin 500 units maintenance dose @ 1130 via HD circuit Patient tolerated treatment. At treatment conclusion (1141), heparin 2000 units and 2100 units were instilled into the arterial and venous ports of her HD catheter, respectively.
[2023-08-03 13:34] LABS: Oxygen Device BIPAP
--- NOTE | 2023-08-03 15:55 | PC.NURSE ---
after a family discussion, Gaby Juan R (daughter) and power of occupational therapy aides teacher notified this nurse family's wish is for comfort care. HCP notified
--- NOTE | 2023-08-03 16:11 | PC.SLP ---
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
[2023-08-03] MEDS: morphine 4 mg/mL SDV 1 mL IVP ×2 (16:29→18:32)
[2023-08-03] MEDS: LORazepam 2 mg/mL INJ 10 mL MDV IVP (18:32)
[2023-08-04] VITALS (7 sets, daily range): BP systolic 144–187; BP diastolic 65–83; PULSE 77–97; RESP 16–20; TEMP 36.6–37.2; O2SAT 95–100; BMI 20.5
[2023-08-04] MEDS: LORazepam 2 mg/mL INJ 10 mL MDV IVP ×3 (00:07→23:52)
[2023-08-04 06:11] LABS: Basophils % 0.1 %; Eosinophils % 0.1 %; Hematocrit 33.5 % (36-47); Lymphocytes # 1.3 10^3/uL (0.8-4.8); Lymphocytes % 16.6 %; Mean Corpuscular Hemoglobin 33.9 pg (27-33); Mean Corpuscular Volume 109.1 fl (85-98); Mean Platelet Volume 10.4 fL (7.4-10.4); Monocytes # 0.8 10^3/uL (0.2-0.9); Monocytes % 10.1 %; Neutrophils # 5.79 10^3/uL (1.8-7.7); Neutrophils % 72.8 %; Nucleated Red Blood Cells % 0 %; Platelet Count 177 10^3/cmm (157-399); Red Blood Count 3.07 10^6/uL (3.85-5.65); Red Cell Distribution Width 15.8 % (12.1-15.1); White Blood Count 7.95 10^3/uL (3.29-11.43)
[2023-08-04 06:33] LABS: Blood Urea Nitrogen 30 mg/dL (8-23); Calcium 9.2 mg/dL (8.5-10.5); Carbon Dioxide 27 mmol/L (22-29); Chloride 99 mmol/L (98-107); Glucose 93 mg/dL (65-115); Osmolality Calculated 290 mOsm/kg (285-295); Sodium 137 mmol/L (136-145)
[2023-08-04 06:39] LABS: Anion Gap 14.3 (5-19); Potassium 3.3 mmol/L (3.5-5.1)
[2023-08-04] MEDS: morphine 10 mg/0.5 mL oral liq UD SUBLINGUAL ×2 (08:48→18:29)
--- NOTE | 2023-08-04 10:09 | P.PN_ITS ---
Subjective 2 Subjective: Had a long meeting with the family Patient was transitioned to comfort care yesterday Today daughter was questioning whether they would continue dialysis at this point they are still wanting to discuss with rest of the family members They might opt for palliative care instead of hospice with dialysis They want 1 more day to decide Currently patient has fluctuating mentation She ate 1 bowl of yogurt She is not able to answer simple questions however she knows that her daughter is in the room and her name is Julissa, she is not able tell me that she is in the hospital she thinks she is in [place] and she was transferred to ICU for being sick Vitals/I&O/Wt Last Vital Signs Temp 98.5 F 08/04/23 04:00 Pulse 88 08/04/23 05:53 Resp 20 H 08/04/23 04:00 BP 157/78 08/04/23 04:00 Pulse Ox 97 08/04/23 04:00 O2 Del Method Nasal Cannula 08/04/23 04:00 O2 Flow Rate 3 08/04/23 04:00 FiO2 30 08/03/23 08:20 08/03/23 08/04/23 08/04/23 22:59 06:59 14:59 Intake Total 440.611 / 740.611 Output Total 100 / 2900 Balance 440.611 / -2059.389 -100 / -2159.389 Weight last 48 hrs Weight 54.386 kg Weight 54 kg Weight 55.792 kg Physical Exam 2 Narrative: She is extremely lethargic and fatigued Fluctuant mentation Able to move her extremities S1, S2 Currently on 3 L nasal cannula Abdomen soft Paula catheter in place Urinary Catheter Management: Paula: Cath Placed During This Visit: yes Reason for Continuing Indwelling Catheter: Hospice/Comfort/Palliative Care Urinary Catheter Date of Insertion: 08/01/23 Urinary Catheter Time of Insertion: 22:40 Data 08/04/23 05:53 08/04/23 05:53 Micro: Microbiology 08/01/23 16:49 Blood Culture - Preliminary Blood 08/01/23 16:42 Blood Culture - Preliminary Blood 08/01/23 22:41 Urine Culture - Preliminary Urine,Clean Catch A&P Assessment and plan (1) Need for comfort care: (2) Pulmonary embolism: (3) Internal and external bleeding hemorrhoids: (4) ESRD (end stage renal disease): (5) Urinary tract infection: Qualifiers: Hematuria presence: without hematuria Urinary tract infection type: s ite unspecified Qualified Code(s): N39.0 - Urinary tract infection, site not specified (6) Anemia: (7) Altered mental status: (8) Acute hypoxic on chronic hypercapnic respiratory failure: (9) Lives in assisted living facility: Plan Patient was put on comfort care however patient's family stating that they would like to continue treatment of UTI with antibiotics, they are not sure if they would opt for hospice yet, they might lean towards continuation of dialysis on palliative care even if she goes back to assisted living They do not want BiPAP at any cost Had a long family meeting today If they do not want BiPAP I would not repeat her ABG today She was given enema she had 1 bowel movement in the ICU I do believe she is still retaining carbon dioxide she does get hypercapnic encephalopathy currently requiring 3 L Attestations 2 Medical Necessity Statement*: Palliative care Diagnoses Need for comfort care Pulmonary embolism I26.99 Internal and external bleeding hemorrhoids K64.4; K64.8 ESRD (end stage renal disease) N18.6 Urinary tract infection N39.0 Hematuria presence: without hematuria Urinary tract infection type: site unspecified Anemia D64.9 Altered mental status R41.82 Acute hypoxic on chronic hypercapnic respiratory failure J96.01; J96.12 Lives in assisted living facility Z59.3
[2023-08-04] MEDS: lactulose oral liq 20 gm/30 mL UDC 10 GM PO (11:50)
[2023-08-04] MEDS: cefTRIAXone 1,000 MG in sodium chloride 0.9% (plus) 50 ML 100 MG IV (11:51)
--- NOTE | 2023-08-04 15:03 | PC.SOCIAL ---
IMM Update pg 2 of IMM updated and reviewed w/ patients daughter Julissa, copy provided and copy dated, initialed and placed in chart.
--- NOTE | 2023-08-04 15:39 | PM.PN ---
Subjective Subjective: looks better today Medications: Reviewed: Yes Vitals/I&O/Wt Last Vital Signs Temp 98.9 F 08/04/23 14:42 Pulse 77 08/04/23 14:42 Resp 16 08/04/23 14:42 BP 149/65 08/04/23 14:42 Pulse Ox 97 08/04/23 14:42 O2 Del Method Nasal Cannula 08/04/23 14:42 O2 Flow Rate 2 08/04/23 14:42 FiO2 30 08/03/23 08:20 08/04/23 08/04/23 08/04/23 06:59 14:59 22:59 Intake Total 50 / 50 Output Total 100 / 2900 Balance -100 / -2159.389 50 / 50 Weight last 48 hrs Weight 54.386 kg Weight 54 kg Weight 55.792 kg Physical Exam Narrative: On BiPAP Urinary Catheter Management: Paula: Cath Placed During This Visit: yes Reason for Continuing Indwelling Catheter: Hospice/Comfort/Palliative Care Urinary Catheter Date of Insertion: 08/01/23 Urinary Catheter Time of Insertion: 22:40 Data 08/04/23 05:53 08/04/23 05:53 Micro: Microbiology 08/01/23 22:41 Urine Culture - Final Urine,Clean Catch 08/01/23 16:49 Blood Culture - Preliminary Blood 08/01/23 16:42 Blood Culture - Preliminary Blood A&P Assessment and plan (1) ESRD (end stage renal disease): Plan 1. End-stage renal disease: On MW schedule as outpatient, presented with volume overload, via tunneled catheter, AV fistula nonfunctional 2. Acute on chronic respiratory failure, 3. NSTEMI 4. Anemia, monitor HD in AM Patient evaluated using audiovisual cart. Time spent 30 minutes. Attestations Medical Necessity Statement*: per [facility] Coding Level of Care Code Acute Code for Chg Fwd Diagnoses ESRD (end stage renal disease) N18.6
[2023-08-04] MEDS: morphine 4 mg/mL SDV 1 mL IVP (23:52)
[2023-08-05] VITALS (12 sets, daily range): BP systolic 142–194; BP diastolic 66–89; PULSE 68–98; RESP 16–20; TEMP 36.3–37.1; O2SAT 93–96
--- NOTE | 2023-08-05 00:08 | PC.NURSE ---
Patient placed right side laying to prevent pressure injuries. Soon after patient was placed in this position, patient stated i don't like this position and request to be on her back.
--- NOTE | 2023-08-05 07:52 | P.PN_ITS ---
Subjective 2 Subjective: She could not go yesterday because family change CODE STATUS to palliative care and wanted dialysis Vitals/I&O/Wt Last Vital Signs Temp 97.6 F 08/05/23 19:54 Pulse 100 08/06/23 08:05 Resp 18 08/06/23 08:05 BP 159/80 08/06/23 08:00 Pulse Ox 95 08/06/23 08:05 O2 Del Method Nasal Cannula 08/06/23 08:05 O2 Flow Rate 2 08/06/23 08:05 FiO2 30 08/03/23 08:20 08/05/23 08/06/23 08/06/23 22:59 06:59 14:59 Intake Total 320 / 470 0 / 0 Output Total 1800 / 1800 50 / 1850 Balance -1480 / -1330 -50 / -1380 0 / 0 Weight last 48 hrs Weight 54.8 kg Weight 55.883 kg Physical Exam 2 Narrative: Weak and lethargic fatigue Oriented to self Confused Dehydrated Not able to eat without assistance Urinary Catheter Management: Paula: Cath Placed During This Visit: yes Reason for Continuing Indwelling Catheter: Hospice/Comfort/Palliative Care Urinary Catheter Date of Insertion: 08/01/23 Urinary Catheter Time of Insertion: 22:40 Data 08/04/23 05:53 08/04/23 05:53 A&P Assessment and plan (1) Need for comfort care: Plan Family change CODE STATUS to palliative care and moderate dialysis Discharge auto was canceled She will be discharged tomorrow once we discussed goals of care again with the family nephrology was notified Attestations 2 Medical Necessity Statement*: Discharge tomorrow Coding Level of Care Code Acute Code for Chg Fwd Diagnoses Need for comfort care
--- NOTE | 2023-08-05 09:30 | PM.DCS ---
Discharge Providers Date of Admission: 08/01/23 19:56 Date of Discharge: August 05, 2023 Attending Provider at Admission: Marycarmen Mcrae MD Attending Provider at Discharge: Marycarmen Mcrae MD Primary Care Provider: Soren Waters DO Diagnoses at Discharge Discharge Diagnosis (1) ESRD (end stage renal disease): Status: Chronic Reason for Visit Reason for Visit: AMS Hospital Course Hospital Course 88-year female who was evaluated in the ER multiple times for UTI, constipation, on third visit she was diagnosed with hypoxic hypercarbic respiratory failure related to fluid overload after missing dialysis, patient was dialyzed right away in the ER, she was admitted to ICU she was put on BiPAP for about 48 hours, patient was getting dehydrated, she was not able to eat and stay off BiPAP for prolonged time.. She was given antibiotics for her UTI, her encephalopathy was related to hypercapnia, she improved very gradually, her p.o. intake was extremely poor, for her constipation she was given enema which relieved her fecal impaction. During this hospitalization she was diagnosed with acute PE she was put on heparin drip on admission for ACS for jump in troponin she never complained of any chest pain EKG without ischemic or infarctive changes,, she carries history of GI bleed, hemoglobin relatively remained stable, family and patient decided to opt for palliative care and continue dialysis. In case further worsening they might opt for hospice at the facility [facility]. Please note she was put on comfort measures in the hospital but family stating that they would like to change her CODE STATUS to palliative care to continue dialysis to give her a chance and treat her UTI. In case this see any further worsening they will opt for hospice. Patient has guarded prognosis Considering GI bleed they have opted not to use any anticoagulating agent for PE at this point, considering palliative care IVC filter would not be indicated Physical Exam Narrative: Oriented to herself Fatigued and lethargic Currently on 2 L nasal cannula Her attention span is only for a few seconds Abdomen soft Urinary Catheter Management: Paula: Cath Placed During This Visit: yes Reason for Continuing Indwelling Catheter: Hospice/Comfort/Palliative Care Urinary Catheter Date of Insertion: 08/01/23 Urinary Catheter Time of Insertion: 22:40 Discharge Data Studies Completed and Pending Completed Studies During Hospitalization Category Date Time Status CT angio chest w abd pel w con Stat Cat Scan 08/01/23 14:[address] head wo con* [id number] Stat Cat Scan 08/01/23 12:34 Completed CXRP [XR chest 1V portable [id number]] Stat Exams 08/01/23 18:13 Completed XR KUB portable [id number] Stat Exams 08/01/23 12:57 Completed XR chest 1V portable [id number] Stat Exams 08/01/23 12:34 [place] [id number] Stat Ultrasound 08/02/23 21:47 Completed CV. echo complete* [id number] Routine Ultrasound 08/01/23 18:56 Completed Pending at discharge Category Date Time Status Blood Cultures ([facility]) Routine Lab 08/01/23 16:42 Results Blood Cultures ([facility]) Routine Lab 08/01/23 16:49 Results Radiology Impressions KUB X-Ray 08/01/23 12:57 IMPRESSION: Nonspecific. Chest/Abdomen/Pelvis CT 08/01/23 14:37 IMPRESSION: 1. Acute pulmonary embolism. 2. Basilar atelectasis 3. Bilateral pleural effusions. IMPRESSION: 1. Suspected fecal impaction. 2. Anasarca 3. Distended gallbladder with mild gallbladder wall thickening. Please correlate for clinical findings of cholecystitis. 4. 2 cm hyperdense and possibly enhancing mass in the lower pole of the right kidney larger than on 01/01/2022. Consider further evaluation with non urgent MRI or CT without with contrast. COMMENTS: Consistent with the [employer]'s Incidental Findings Committee white paper (J Am Logan Radiol 2018): Any incidental renal lesion less than 1 cm or classified as too small to characterize, or any incidental cystic renal lesion characterized as simple-appearing, is likely benign. No follow-up imaging is recommended for these lesions per consensus recommendations based on imaging criteria. ADDENDUM: 08/01/23 6006 Addendum: THIS REPORT CONTAINS FINDINGS THAT MAY BE CRITICAL TO PATIENT CARE. The findings were verbally communicated via telephone conference with Dr Esquivel at 9:47 PM APRON OPERATOR on 08/01/2023. The findings were acknowledged and understood. Chest X-Ray 08/01/23 18:13 IMPRESSION: 1. No pneumothorax following left subclavian line placement. 2. Left basilar infiltrate not significantly changed. Laboratory Results WBC 7.95 10^3/uL (3.29-11.43) 08/04/23 05:53 RBC 3.07 10^6/uL (3.85-5.65) L 08/04/23 05:53 Hgb 10.40 g/dL (11.27-16.99) L 08/04/23 05:53 Hct 33.5 % (36-47) L 08/04/23 05:53 MCV 109.1 fl (85-98) H 08/04/23 05:53 MCH 33.9 pg (27-33) H 08/04/23 05:53 MCHC 31.0 g/dL (30-55) 08/04/23 05:53 RDW 15.8 % (12.1-15.1) H 08/04/23 05:53 Plt Count 177 10^3/cmm (157-399) 08/04/23 05:53 MPV 10.4 fL (7.4-10.4) 08/04/23 05:53 Neut % (Auto) 72.8 % 08/04/23 05:53 Lymph % (Auto) 16.6 % 08/04/23 05:53 Bullitt % (Auto) 10.1 % 08/04/23 05:53 Eos % (Auto) 0.1 % 08/04/23 05:53 Baso % (Auto) 0.1 % 08/04/23 05:53 Neut # (Auto) 5.79 10^3/uL (1.8-7.7) 08/04/23 05:53 Lymph # (Auto) 1.3 10^3/uL (0.8-4.8) 08/04/23 05:53 Bullitt # (Auto) 0.8 10^3/uL (0.2-0.9) 08/04/23 05:53 Eos # (Auto) 0.0 10^3/uL (0.0-0.8) 08/04/23 05:53 Baso # (Auto) 0.0 10^3/uL (0.0-0.1) 08/04/23 05:53 Nucleated RBC % (auto) 0 % 08/04/23 05:53 Nucleated RBCs # 0.0 /100WBC 08/04/23 05:53 APTT 179.6 SECONDS (23.9-36.7) H* D 08/03/23 10:55 D-Dimer 1.53 ug/mLFEU (0-0.59) H 08/01/23 12:15 Specimen Type Arterial 08/03/23 03:35 Sample Site Brachial, right 08/03/23 03:35 ABG pH 7.25 (7.35-7.45) L 08/03/23 03:35 ABG pCO2 52.0 mmHg (35-45) H 08/03/23 03:35 ABG pO2 96.0 mmHg (80.0-100.0) 08/03/23 03:35 ABG PO2/FiO2 Ratio 0 08/03/23 03:35 ABG HCO3 22.8 mmol/L (22-26) 08/03/23 03:35 ABG O2 Saturation 92.8 08/02/23 21:06 ABG Base Excess -4.7 mmol/L (-2.0-2.0) L 08/03/23 03:35 Eddi Test N/a 08/03/23 03:35 A-a O2 Gradient 9.9 mmHg (5-10) 08/02/23 21:06 Hematocrit 32.3 % (37-47) L 08/03/23 03:35 Hgb O2 Saturation 91.8 % (95-100) L 08/02/23 21:06 Carboxyhemoglobin < 0.0 %THgb (0.4-20.1) L 08/02/23 21:06 Methemoglobin 1.1 % (0.4-1.5) 08/02/23 21:06 Total Hemoglobin 10.0 g/dL (12-16) L 08/02/23 21:06 Sodium 135.0 mmol/L (131-143) 08/02/23 21:06 Potassium 3.8 mmol/L (3.5-5.0) 08/02/23 21:06 Glucose 94.0 mg/dL (70-115) 08/02/23 21:06 Ionized Calcium 1.3 mmol/L (1.1-1.4) 08/02/23 21:06 O2 Delivery Device Bipap 08/03/23 03:35 O2 Liters/Min 4.0 % 08/01/23 14:38 FiO2 30.0 % 08/03/23 03:35 Tidal Volume 0.40 08/03/23 03:35 PEEP 6.0 cmH20 08/03/23 03:35 Machine Overhauler ID Zachary 08/03/23 03:35 Sodium 137 mmol/L (136-145) 08/04/23 05:53 Potassium 3.3 mmol/L (3.5-5.1) L 08/04/23 05:53 Chloride 99 mmol/L (98-107) 08/04/23 05:53 Carbon Dioxide 27 mmol/L (22-29) 08/04/23 05:53 Anion Gap 14.3 (5-19) 08/04/23 05:53 BUN 30 mg/dL (8-23) H 08/04/23 05:53 Creatinine 3.1 mg/dL (0.5-0.9) H 08/04/23 05:53 GFR Calculation Not Reportable 08/04/23 05:53 Glucose 93 mg/dL (65-115) 08/04/23 05:53 Calculated Osmolality 290 mOsm/kg (285-295) 08/04/23 05:53 Lactic Acid 0.7 mmol/L (0.5-2.2) 08/01/23 16:42 Calcium 9.2 mg/dL (8.5-10.5) 08/04/23 05:53 Phosphorus 3.6 mg/dL (2.5-4.5) 08/02/23 04:29 Magnesium 2.9 mg/dL (1.7-2.3) H 08/02/23 04:29 Total Bilirubin 0.2 mg/dL (0.15-1.2) 08/03/23 05:01 AST 18 U/L (0-32) 08/03/23 05:01 ALT 8 U/L (0-33) 08/03/23 05:01 Alkaline Phosphatase 63 U/L (35-105) 08/03/23 05:01 Ammonia 52 umol/L (11-51) H 08/01/23 16:42 Troponin T Baseline 233 ng/L (0-10) H* 08/01/23 12:15 Troponin T 120 Minute 215.9 ng/L (0-10) H 08/01/23 15:13 Delta Troponin T -17.1 ABS# (0-10) L 08/01/23 15:13 Troponin T Hi Sens 6Hr 226.7 ng/L (0-10) H 08/01/23 18:45 Troponin T Hi Sens 6Hr Delta -6.3 ng/L (0-12) L 08/01/23 18:45 C-Reactive Protein 35.6 mg/L (0.0-4.9) H 08/02/23 04:29 Total Protein 5.2 g/dL (6.6-8.7) L 08/03/23 05:01 Albumin 3.2 g/dL (3.5-5.2) L 08/03/23 05:01 Globulin 2.0 g/dL (1.3-4.6) 08/03/23 05:01 Lipase 23 U/L (13-60) 08/01/23 12:15 Lipase Cancelled 08/01/23 12:15 Procalcitonin 0.45 ng/mL (0-0.5) 08/01/23 12:15 TSH 3.10 uIU/mL (0.27-4.20) 08/01/23 12:15 Urine Color Yellow (Yellow) 08/01/23 22:41 Urine Appearance Sl hazy (CLEAR) A 08/01/23 22:41 Urine pH 5 (5-7) 08/01/23 22:41 Ur Specific Ehrhardt 1.015 (1.005-1.030) 08/01/23 22:41 Urine Protein 3+ (Negative) H 08/01/23 22:41 Urine Glucose (UA) Norm (Normal) 08/01/23 22:41 Urine Ketones Negative (Negative) 08/01/23 22:41 Urine Blood Neg (Negative) 08/01/23 22:41 Urine Nitrate Negative (Negative) 08/01/23 22:41 Urine Bilirubin 1+ (Negative) H 08/01/23 22:41 Urine Urobilinogen Norm mg/dL (Negative) 08/01/23 22:41 Ur Leukocyte Esterase 2+ (Negative) H 08/01/23 22:41 Urine RBC 0-4 /hpf (0-2) H 08/01/23 22:41 Urine WBC >100 /hpf (0-5) H 08/01/23 22:41 Ur Squamous Epith Cells 0-4 /hpf (0-5) H 08/01/23 22:41 Amorphous Sediment Not Reportable 08/01/23 22:41 Urine Bacteria Trace /hpf (NONE) 08/01/23 22:41 Salicylates < 0.3 mg/dL (3-10) L 08/01/23 12:15 Acetaminophen < 5.0 ug/mL (10-30) L 08/01/23 12:15 Serum Ketones Negative (Negative) 08/01/23 12:15 Coronavirus 229E (PCR) Not detected (NOT DETECT) 08/01/23 15:34 Influenza Type A Ag negative (Negative) 08/01/23 15:34 Influenza Type B Ag negative (Negative) 08/01/23 15:34 SARS-CoV-2 (PCR) Not detected (NOT DETECT) 08/01/23 15:34 Vitals Last Vital Signs Temp 97.9 F 08/05/23 07:46 Pulse 89 08/05/23 07:46 Resp 16 08/05/23 07:46 BP 172/79 08/05/23 07:46 Pulse Ox 95 08/05/23 07:46 O2 Del Method Nasal Cannula 08/04/23 14:42 O2 Flow Rate 2 08/04/23 14:42 FiO2 30 08/03/23 08:20 Discharge Plan Discharge Patient Disposition: Xfer SNF Condition: Stable Prescriptions: New morphine 10 mg/5 mL solution 5 mg buccal Q3H PRN (Reason: dyspnea) Qty: 100 0RF Continued acetaminophen [Tylenol] 325 mg tablet 650 mg PO Q4H PRN (Reason: Pain) ipratropium-albuterol 0.5 mg-3 mg(2.5 mg base)/3 mL solution for nebulization 3 ml INHALATION Q4H PRN (Reason: Shortness Of Breath) bisacodyl 10 mg suppository 10 mg KS DAILY PRN (Reason: constipation) Rx Instructions: if no bm in 3 days (DME) elastic bandage 3 bandage See Rx Instructions .Route Rx Instructions: Apply to LLE as needed for swelling and continue to elevate the LE's as needed. (DME) elastic bandage Bandage See Rx Instructions .Route Rx Instructions: Apply every day to LLE as needed. ondansetron HCl 8 mg tablet 8 mg PO TID PRN (Reason: nausea and vomiting) Marybel-Eugenio Rx 1-60-300 mg-mg-mcg Tablet 1 tab PO DAILY calcium acetate(phosphat bind) 667 mg tablet 667 mg PO TID trazodone 50 mg tablet 25 mg PO BEDTIME isosorbide mononitrate 10 mg tablet 10 mg PO QPM carboxymethylcellulose sodium [Refresh] 1 % Drops, Liquid Gel 1 drp OPHTHALMIC (EYE) QID PRN (Reason: Dry Eyes) albuterol sulfate 90 mcg/actuation Hfa Aerosol Inhaler 1 - 2 inh INHALATION QID PRN (Reason: Shortness Of Breath) alprazolam 0.25 mg tablet 0.5 mg PO Q8H PRN (Reason: Anxiety) amoxicillin-pot clavulanate 875-125 mg tablet 1 tab PO BID Qty: 6 0RF sevelamer carbonate 800 mg tablet 800 mg PO TID Discontinued citalopram [Celexa] 10 mg tablet 10 mg PO DAILY Hold Instructions: Resume on 03/03/23. cholecalciferol (vitamin D3) [Vitamin D3] 25 mcg (1,000 unit) capsule 25 mcg PO DAILY Xtampza ER 18 mg cap,sprinkl,ER12hr(DONT CRUSH) 18 mg PO BID 30 Days Qty: 60 0RF hydrocodone-acetaminophen 10-325 mg tablet 1 tab PO Q4H PRN (Reason: Pain) 30 Days Qty: 180 0RF tamsulosin [Flomax] 0.4 mg capsule 0.4 mg PO BEDTIME sucralfate [Carafate] 100 mg/mL suspension 10 ml PO QID pantoprazole 40 mg tablet,delayed release (DR/EC) 40 mg PO BID mirtazapine 7.5 mg tablet 7.5 mg PO BEDTIME cephalexin 500 mg capsule 500 mg PO TID 7 Days Qty: 21 0RF mineral oil Oil 15 ml PO DAILY Anti-Diarrhea 2 mg Tablet 2 mg PO Q8H PRN (Reason: Diarrhea) polyethylene glycol 3350 17 gram/dose Powder 17 g PO DAILY PRN (Reason: Constipation) Hemorrhoidal (witch maia) 50 % Pads, Medicated 1 pad TOPICAL BID PRN (Reason: Hemorrhoids) diphenoxylate-atropine [Lomotil] 2.5-0.025 mg tablet 1 tab PO QID PRN (Reason: Diarrhea) magnesium oxide 400 mg magnesium capsule 400 mg PO BID Qty: 30 0RF Discharge Orders: Discharge Order (Routine); Ordered 08/05/23 Ordered By: Marycarmen Mcrae Referrals: Soren Waters, [Primary Care Provider] - Patient Instructions: Altered Mental Status (ED) Activity Restrictions/Additional Instructions: Family had decided to use palliative care instead of hospice because they want to give her a trial off of dialysis until next week in case she gets worse they will opt for hospice care Discharge Attestations Time Spent in Discharge Care*: greater than 30 min Quality Metrics Clinical Quality Measures [ No reported AMI, CVA or VTE this stay] Coding Level of Care Code Acute Code for Chg Fwd Diagnoses ESRD (end stage renal disease) N18.6
[2023-08-05] MEDS: cefTRIAXone 1,000 MG in sodium chloride 0.9% (plus) 50 ML 100 MG IV (09:56)
--- NOTE | 2023-08-05 11:37 | P.PN_ITS ---
Subjective 2 Subjective: events noted Medications: Reviewed: Yes Vitals/I&O/Wt Last Vital Signs Temp 97.9 F 08/05/23 08:00 Pulse 91 08/05/23 09:30 Resp 18 08/05/23 09:30 BP 172/79 08/05/23 08:00 Pulse Ox 95 08/05/23 09:30 O2 Del Method Nasal Cannula 08/05/23 09:30 O2 Flow Rate 2 08/05/23 09:30 FiO2 30 08/03/23 08:20 08/04/23 08/05/23 08/05/23 22:59 06:59 14:59 Intake Total 120 / 170 100 / 100 Output Total 150 / 150 Balance 120 / 170 -150 / 20 100 / 100 Weight last 48 hrs Weight 55.883 kg Weight 54.386 kg Weight 54 kg Physical Exam 2 Narrative: awake , Urinary Catheter Management: Paula: Cath Placed During This Visit: yes Reason for Continuing Indwelling Catheter: Hospice/Comfort/Palliative Care Urinary Catheter Date of Insertion: 08/01/23 Urinary Catheter Time of Insertion: 22:40 Data 08/04/23 05:53 08/04/23 05:53 Micro: Microbiology 08/01/23 22:41 Urine Culture - Final Urine,Clean Catch 08/01/23 16:49 Blood Culture - Preliminary Blood 08/01/23 16:42 Blood Culture - Preliminary Blood A&P Assessment and plan (1) ESRD (end stage renal disease): Plan 1. End-stage renal disease: On MWF schedule as outpatient, presented with volume overload, via tunneled catheter, AV fistula nonfunctional 2. Acute on chronic respiratory failure, 3. NSTEMI 4. Anemia, monitor HD today per family request , then transition to comfort care Patient evaluated using audiovisual cart. Time spent 30 minutes. Attestations 2 Medical Necessity Statement*: per korey Coding Level of Care Code Acute Code for Chg Fwd Diagnoses ESRD (end stage renal disease) N18.6
[2023-08-05] MEDS: morphine 10 mg/0.5 mL oral liq UD SUBLINGUAL ×2 (14:10→20:34)
--- NOTE | 2023-08-05 14:30 | PC.NURSE ---
Patient return to room from dialysis at this time. Will give patient a bed bath before returning to [facility]. Family at bedside.
--- NOTE | 2023-08-05 15:36 | PC.NURSE ---
Patient's daughter at bedside updated that patient would not be able to return [facility] as they are unable to provide the patient with the care she would need being a full code and palliative care. Patient daughter states to this nurse that patient is a DNR an that they want her to go to back to [facility]. Daughter Julissa states that her sister Gaby is the DPOA and that she will be here tomorrow to do the paperwork for the DNR and that Gaby will call [facility] and asked them if they still will accept the patient.
--- NOTE | 2023-08-05 16:50 | PC.NURSE ---
Patient will stay the night with us lindaight will discharge to [facility] tomorrow with DNR paperwork an on hospice.
[2023-08-05] MEDS: LORazepam 2 mg/mL INJ 10 mL MDV IVP ×2 (17:22→20:34)
--- NOTE | 2023-08-05 18:29 | PC.NURSE ---
When calling report on patient to [facility] LPN manufacturing shift supervisor stated that she need to talk to her DON as she is not sure that patient can come back there on palliative care being a full code. Raegan RAND of [facility] called this RN and state that they are unable to take patient back as a full code on palliative care as they are not able to provide the care the patient needs.
--- NOTE | 2023-08-05 20:08 | PC.NURSE ---
Addendum entered by Cynthia Farooq RN 08/05/23 20:32: Miralax x1 ordered charted on wrong patient. Disregard this. Addendum entered by Cynthia Farooq RN 08/05/23 20:32: Miralax x1 ordered. Addendum entered by Cynthia Farooq RN 08/05/23 20:16: Dr. Esquivel gave order okay to give Ativan via these routes. Original Note: Verified with on-call telepharmacy that IV Ativan can be administered sublingual or IM.
[2023-08-06 08:00] VITALS: BP 159/80; PULSE 84; RESP 14; O2SAT 96
[2023-08-06 08:05] VITALS: PULSE 100; RESP 18; O2SAT 95
--- NOTE | 2023-08-06 09:51 | PM.DCS ---
Discharge Providers Date of Admission: 08/01/23 19:56 Date of Discharge: August 06, 2023 Attending Provider at Admission: Marycarmen Mcrae MD Attending Provider at Discharge: Marycarmen Mcrae MD Primary Care Provider: Soren Waters DO Diagnoses at Discharge Discharge Diagnosis (1) ESRD (end stage renal disease): Status: Chronic Reason for Visit Reason for Visit: AMS Hospital Course Hospital Course 88-year female who was evaluated in the ER multiple times for UTI, constipation, on third visit she was diagnosed with hypoxic hypercarbic respiratory failure related to fluid overload after missing dialysis, patient was dialyzed right away in the ER, she was admitted to ICU she was put on BiPAP for about 48 hours, patient was getting dehydrated, she was not able to eat and stay off BiPAP for prolonged time.. She was given antibiotics for her UTI, her encephalopathy was related to hypercapnia, she improved very gradually, her p.o. intake was extremely poor, for her constipation she was given enema which relieved her fecal impaction. During this hospitalization she was diagnosed with acute PE she was put on heparin drip on admission for ACS for jump in troponin she never complained of any chest pain EKG without ischemic or infarctive changes,, she carries history of GI bleed, hemoglobin relatively remained stable, family and patient decided to opt for palliative care and continue dialysis. In case further worsening they might opt for hospice at the facility [facility]. Please note she was put on comfort measures in the hospital but family stating that they would like to change her CODE STATUS to palliative care to continue dialysis to give her a chance and treat her UTI. In case this see any further worsening they will opt for hospice. Patient has guarded prognosis Considering GI bleed they have opted not to use any anticoagulating agent for PE at this point, considering palliative care IVC filter would not be indicated Physical Exam Urinary Catheter Management: Paula: Cath Placed During This Visit: yes Reason for Continuing Indwelling Catheter: Hospice/Comfort/Palliative Care Urinary Catheter Date of Insertion: 08/01/23 Urinary Catheter Time of Insertion: 22:40 Discharge Data Studies Completed and Pending Completed Studies During Hospitalization Category Date Time Status CT angio chest w abd pel w con Stat Cat Scan 08/01/23 14:[address] head wo con* [id number] Stat Cat Scan 08/01/23 12:34 Completed CXRP [XR chest 1V portable [id number]] Stat Exams 08/01/23 18:13 Completed XR KUB portable [id number] Stat Exams 08/01/23 12:57 Completed XR chest 1V portable [id number] Stat Exams 08/01/23 12:34 [place] [id number] Stat Ultrasound 08/02/23 21:47 Completed CV. echo complete* [id number] Routine Ultrasound 08/01/23 18:56 Completed Pending at discharge Category Date Time Status Blood Cultures ([facility]) Routine Lab 08/01/23 16:42 Results Blood Cultures ([facility]) Routine Lab 08/01/23 16:49 Results Radiology Impressions KUB X-Ray 08/01/23 12:57 IMPRESSION: Nonspecific. Chest/Abdomen/Pelvis CT 08/01/23 14:37 IMPRESSION: 1. Acute pulmonary embolism. 2. Basilar atelectasis 3. Bilateral pleural effusions. IMPRESSION: 1. Suspected fecal impaction. 2. Anasarca 3. Distended gallbladder with mild gallbladder wall thickening. Please correlate for clinical findings of cholecystitis. 4. 2 cm hyperdense and possibly enhancing mass in the lower pole of the right kidney larger than on 01/01/2022. Consider further evaluation with non urgent MRI or CT without with contrast. COMMENTS: Consistent with the [employer]'s Incidental Findings Committee white paper (J Am Logan Radiol 2018): Any incidental renal lesion less than 1 cm or classified as too small to characterize, or any incidental cystic renal lesion characterized as simple-appearing, is likely benign. No follow-up imaging is recommended for these lesions per consensus recommendations based on imaging criteria. ADDENDUM: 08/01/23 1619 Addendum: THIS REPORT CONTAINS FINDINGS THAT MAY BE CRITICAL TO PATIENT CARE. The findings were verbally communicated via telephone conference with Dr Esquivel at 9:47 PM ADVANCED PRACTICE PROVIDER on 08/01/2023. The findings were acknowledged and understood. Chest X-Ray 08/01/23 18:13 IMPRESSION: 1. No pneumothorax following left subclavian line placement. 2. Left basilar infiltrate not significantly changed. Laboratory Results WBC 7.95 10^3/uL (3.29-11.43) 08/04/23 05:53 RBC 3.07 10^6/uL (3.85-5.65) L 08/04/23 05:53 Hgb 10.40 g/dL (11.27-16.99) L 08/04/23 05:53 Hct 33.5 % (36-47) L 08/04/23 05:53 MCV 109.1 fl (85-98) H 08/04/23 05:53 MCH 33.9 pg (27-33) H 08/04/23 05:53 MCHC 31.0 g/dL (30-55) 08/04/23 05:53 RDW 15.8 % (12.1-15.1) H 08/04/23 05:53 Plt Count 177 10^3/cmm (157-399) 08/04/23 05:53 MPV 10.4 fL (7.4-10.4) 08/04/23 05:53 Neut % (Auto) 72.8 % 08/04/23 05:53 Lymph % (Auto) 16.6 % 08/04/23 05:53 Gonzales % (Auto) 10.1 % 08/04/23 05:53 Eos % (Auto) 0.1 % 08/04/23 05:53 Baso % (Auto) 0.1 % 08/04/23 05:53 Neut # (Auto) 5.79 10^3/uL (1.8-7.7) 08/04/23 05:53 Lymph # (Auto) 1.3 10^3/uL (0.8-4.8) 08/04/23 05:53 Gonzales # (Auto) 0.8 10^3/uL (0.2-0.9) 08/04/23 05:53 Eos # (Auto) 0.0 10^3/uL (0.0-0.8) 08/04/23 05:53 Baso # (Auto) 0.0 10^3/uL (0.0-0.1) 08/04/23 05:53 Nucleated RBC % (auto) 0 % 08/04/23 05:53 Nucleated RBCs # 0.0 /100WBC 08/04/23 05:53 APTT 179.6 SECONDS (23.9-36.7) H* D 08/03/23 10:55 D-Dimer 1.53 ug/mLFEU (0-0.59) H 08/01/23 12:15 Specimen Type Arterial 08/03/23 03:35 Sample Site Brachial, right 08/03/23 03:35 ABG pH 7.25 (7.35-7.45) L 08/03/23 03:35 ABG pCO2 52.0 mmHg (35-45) H 08/03/23 03:35 ABG pO2 96.0 mmHg (80.0-100.0) 08/03/23 03:35 ABG PO2/FiO2 Ratio 0 08/03/23 03:35 ABG HCO3 22.8 mmol/L (22-26) 08/03/23 03:35 ABG O2 Saturation 92.8 08/02/23 21:06 ABG Base Excess -4.7 mmol/L (-2.0-2.0) L 08/03/23 03:35 Eddi Test N/a 08/03/23 03:35 A-a O2 Gradient 9.9 mmHg (5-10) 08/02/23 21:06 Hematocrit 32.3 % (37-47) L 08/03/23 03:35 Hgb O2 Saturation 91.8 % (95-100) L 08/02/23 21:06 Carboxyhemoglobin < 0.0 %THgb (0.4-20.1) L 08/02/23 21:06 Methemoglobin 1.1 % (0.4-1.5) 08/02/23 21:06 Total Hemoglobin 10.0 g/dL (12-16) L 08/02/23 21:06 Sodium 135.0 mmol/L (131-143) 08/02/23 21:06 Potassium 3.8 mmol/L (3.5-5.0) 08/02/23 21:06 Glucose 94.0 mg/dL (70-115) 08/02/23 21:06 Ionized Calcium 1.3 mmol/L (1.1-1.4) 08/02/23 21:06 O2 Delivery Device Bipap 08/03/23 03:35 O2 Liters/Min 4.0 % 08/01/23 14:38 FiO2 30.0 % 08/03/23 03:35 Tidal Volume 0.40 08/03/23 03:35 PEEP 6.0 cmH20 08/03/23 03:35 Manufacturing Design Engineer ID Zachary 08/03/23 03:35 Sodium 137 mmol/L (136-145) 08/04/23 05:53 Potassium 3.3 mmol/L (3.5-5.1) L 08/04/23 05:53 Chloride 99 mmol/L (98-107) 08/04/23 05:53 Carbon Dioxide 27 mmol/L (22-29) 08/04/23 05:53 Anion Gap 14.3 (5-19) 08/04/23 05:53 BUN 30 mg/dL (8-23) H 08/04/23 05:53 Creatinine 3.1 mg/dL (0.5-0.9) H 08/04/23 05:53 GFR Calculation Not Reportable 08/04/23 05:53 Glucose 93 mg/dL (65-115) 08/04/23 05:53 Calculated Osmolality 290 mOsm/kg (285-295) 08/04/23 05:53 Lactic Acid 0.7 mmol/L (0.5-2.2) 08/01/23 16:42 Calcium 9.2 mg/dL (8.5-10.5) 08/04/23 05:53 Phosphorus 3.6 mg/dL (2.5-4.5) 08/02/23 04:29 Magnesium 2.9 mg/dL (1.7-2.3) H 08/02/23 04:29 Total Bilirubin 0.2 mg/dL (0.15-1.2) 08/03/23 05:01 AST 18 U/L (0-32) 08/03/23 05:01 ALT 8 U/L (0-33) 08/03/23 05:01 Alkaline Phosphatase 63 U/L (35-105) 08/03/23 05:01 Ammonia 52 umol/L (11-51) H 08/01/23 16:42 Troponin T Baseline 233 ng/L (0-10) H* 08/01/23 12:15 Troponin T 120 Minute 215.9 ng/L (0-10) H 08/01/23 15:13 Delta Troponin T -17.1 ABS# (0-10) L 08/01/23 15:13 Troponin T Hi Sens 6Hr 226.7 ng/L (0-10) H 08/01/23 18:45 Troponin T Hi Sens 6Hr Delta -6.3 ng/L (0-12) L 08/01/23 18:45 C-Reactive Protein 35.6 mg/L (0.0-4.9) H 08/02/23 04:29 Total Protein 5.2 g/dL (6.6-8.7) L 08/03/23 05:01 Albumin 3.2 g/dL (3.5-5.2) L 08/03/23 05:01 Globulin 2.0 g/dL (1.3-4.6) 08/03/23 05:01 Lipase 23 U/L (13-60) 08/01/23 12:15 Lipase Cancelled 08/01/23 12:15 Procalcitonin 0.45 ng/mL (0-0.5) 08/01/23 12:15 TSH 3.10 uIU/mL (0.27-4.20) 08/01/23 12:15 Urine Color Yellow (Yellow) 08/01/23 22:41 Urine Appearance Sl hazy (CLEAR) A 08/01/23 22:41 Urine pH 5 (5-7) 08/01/23 22:41 Ur Specific [place] 1.015 (1.005-1.030) 08/01/23 22:41 Urine Protein 3+ (Negative) H 08/01/23 22:41 Urine Glucose (UA) Norm (Normal) 08/01/23 22:41 Urine Ketones Negative (Negative) 08/01/23 22:41 Urine Blood Neg (Negative) 08/01/23 22:41 Urine Nitrate Negative (Negative) 08/01/23 22:41 Urine Bilirubin 1+ (Negative) H 08/01/23 22:41 Urine Urobilinogen Norm mg/dL (Negative) 08/01/23 22:41 Ur Leukocyte Esterase 2+ (Negative) H 08/01/23 22:41 Urine RBC 0-4 /hpf (0-2) H 08/01/23 22:41 Urine WBC >100 /hpf (0-5) H 08/01/23 22:41 Ur Squamous Epith Cells 0-4 /hpf (0-5) H 08/01/23 22:41 Amorphous Sediment Not Reportable 08/01/23 22:41 Urine Bacteria Trace /hpf (NONE) 08/01/23 22:41 Salicylates < 0.3 mg/dL (3-10) L 08/01/23 12:15 Acetaminophen < 5.0 ug/mL (10-30) L 08/01/23 12:15 Serum Ketones Negative (Negative) 08/01/23 12:15 Coronavirus 229E (PCR) Not detected (NOT DETECT) 08/01/23 15:34 Influenza Type A Ag negative (Negative) 08/01/23 15:34 Influenza Type B Ag negative (Negative) 08/01/23 15:34 SARS-CoV-2 (PCR) Not detected (NOT DETECT) 08/01/23 15:34 Vitals Last Vital Signs Temp 97.6 F 08/05/23 19:54 Pulse 100 08/06/23 08:05 Resp 18 08/06/23 08:05 BP 159/80 08/06/23 08:00 Pulse Ox 95 08/06/23 08:05 O2 Del Method Nasal Cannula 08/06/23 08:05 O2 Flow Rate 2 08/06/23 08:05 FiO2 30 08/03/23 08:20 Discharge Plan Discharge Patient Disposition: Xfer SNF Condition: Stable Prescriptions: New morphine 10 mg/5 mL solution 5 mg buccal Q3H PRN (Reason: dyspnea) Qty: 100 0RF morphine concentrate 100 mg/5 mL (20 mg/mL) solution 20 mg PO Q3H PRN (Reason: dyspnea) Qty: 30 0RF Continued acetaminophen [Tylenol] 325 mg tablet 650 mg PO Q4H PRN (Reason: Pain) ipratropium-albuterol 0.5 mg-3 mg(2.5 mg base)/3 mL solution for nebulization 3 ml INHALATION Q4H PRN (Reason: Shortness Of Breath) bisacodyl 10 mg suppository 10 mg NM DAILY PRN (Reason: constipation) Rx Instructions: if no bm in 3 days (DME) elastic bandage 3 bandage See Rx Instructions .Route Rx Instructions: Apply to LLE as needed for swelling and continue to elevate the LE's as needed. (DME) elastic bandage Bandage See Rx Instructions .Route Rx Instructions: Apply every day to LLE as needed. ondansetron HCl 8 mg tablet 8 mg PO TID PRN (Reason: nausea and vomiting) Marybel-Eugenio Rx 1-60-300 mg-mg-mcg Tablet 1 tab PO DAILY calcium acetate(phosphat bind) 667 mg tablet 667 mg PO TID trazodone 50 mg tablet 25 mg PO BEDTIME isosorbide mononitrate 10 mg tablet 10 mg PO QPM carboxymethylcellulose sodium 1 % Drops, Liquid Gel 1 drp OPHTHALMIC (EYE) QID PRN (Reason: Dry Eyes) albuterol sulfate 90 mcg/actuation Hfa Aerosol Inhaler 1 - 2 inh INHALATION QID PRN (Reason: Shortness Of Breath) alprazolam 0.25 mg tablet 0.5 mg PO Q8H PRN (Reason: Anxiety) amoxicillin-pot clavulanate 875-125 mg tablet 1 tab PO BID Qty: 6 0RF sevelamer carbonate 800 mg tablet 800 mg PO TID Discontinued citalopram [Celexa] 10 mg tablet 10 mg PO DAILY Hold Instructions: Resume on 03/03/23. cholecalciferol (vitamin D3) [Vitamin D3] 25 mcg (1,000 unit) capsule 25 mcg PO DAILY Xtampza ER 18 mg cap,sprinkl,ER12hr(DONT CRUSH) 18 mg PO BID 30 Days Qty: 60 0RF hydrocodone-acetaminophen 10-325 mg tablet 1 tab PO Q4H PRN (Reason: Pain) 30 Days Qty: 180 0RF tamsulosin [Flomax] 0.4 mg capsule 0.4 mg PO BEDTIME sucralfate [Carafate] 100 mg/mL suspension 10 ml PO QID pantoprazole 40 mg tablet,delayed release (DR/EC) 40 mg PO BID mirtazapine 7.5 mg tablet 7.5 mg PO BEDTIME cephalexin 500 mg capsule 500 mg PO TID 7 Days Qty: 21 0RF mineral oil Oil 15 ml PO DAILY loperamide [Anti-Diarrhea] 2 mg Tablet 2 mg PO Q8H PRN (Reason: Diarrhea) polyethylene glycol 3350 17 gram/dose Powder 17 g PO DAILY PRN (Reason: Constipation) Hemorrhoidal (witch maia) 50 % Pads, Medicated 1 pad TOPICAL BID PRN (Reason: Hemorrhoids) diphenoxylate-atropine [Lomotil] 2.5-0.025 mg tablet 1 tab PO QID PRN (Reason: Diarrhea) magnesium oxide 400 mg magnesium capsule 400 mg PO BID Qty: 30 0RF Discharge Orders: Discharge Order (Routine); Ordered 08/06/23 Ordered By: Marycarmen Mcrae Referrals: Soren Waters, [Primary Care Provider] - (We have notified your physician's clinic of the need for a follow-up appointment to be scheduled. If you have not heard from them within the next 2 business days, please call them directly. ) Patient Instructions: Amoxicillin/Clavulanate Potassium (By mouth), Morphine, Rapid Release (By mouth), Altered Mental Status (ED) Activity Restrictions/Additional Instructions: Family had decided to use palliative care instead of hospice because they want to give her a trial off of dialysis until next week in case she gets worse they will opt for hospice care Discharge Attestations Time Spent in Discharge Care*: greater than 30 min Quality Metrics Clinical Quality Measures [ No reported AMI, CVA or VTE this stay] Coding Level of Care Code Acute Code for Chg Fwd Diagnoses ESRD (end stage renal disease) N18.6
[2023-08-06] MEDS: morphine 10 mg/0.5 mL oral liq UD SUBLINGUAL (12:37)
[2023-08-06 12:59] VITALS: BP 159/80; PULSE 100; RESP 18; TEMP 36.4; O2SAT 95
== END 2023-08-06 13:00 | disposition skilled nursing facility (03) | DRG 175 ==
LOC: ER 13:03 → ICU 19:56 → MEDSURG 08-03 18:10
PROVIDERS: Family Medicine; Admitting Provider Internal Medicine; Emergency Provider Family Medicine; PCP Family Medicine; Visit Provider Internal Medicine
DX: I26.99 Other pulmonary embolism without acute cor pulmonale (principal); G93.41 Metabolic encephalopathy; I21.A1 Myocardial infarction type 2; N18.6 End stage renal disease; J96.22 Acute and chronic respiratory failure with hypercapnia; J96.21 Acute and chronic respiratory failure with hypoxia; I13.2 Hypertensive heart and chronic kidney disease with heart failure and with stage 5 chronic kidney disease, or end stage renal disease; I50.32 Chronic diastolic (congestive) heart failure; N39.0 Urinary tract infection, site not specified; I48.0 Paroxysmal atrial fibrillation; F41.9 Anxiety disorder, unspecified; F32.A Depression, unspecified; M79.7 Fibromyalgia; E78.5 Hyperlipidemia, unspecified; K21.9 Gastro-esophageal reflux disease without esophagitis; E86.0 Dehydration; F03.90 Unspecified dementia, unspecified severity, without behavioral disturbance, psychotic disturbance, mood disturbance, and anxiety; K59.09 Other constipation; K64.8 Other hemorrhoids; D63.1 Anemia in chronic kidney disease; Z87.440 Personal history of urinary (tract) infections; Z86.718 Personal history of other venous thrombosis and embolism; Z91.158 Patient's noncompliance with renal dialysis for other reason; Z99.2 Dependence on renal dialysis; Z85.3 Personal history of malignant neoplasm of breast; Z86.73 Personal history of transient ischemic attack (TIA), and cerebral infarction without residual deficits; Z11.52 Encounter for screening for COVID-19
CPT/HCPCS: 36415; 36600; 51702; 70450; 71045; 71275; 74018; 74177; 80048; 80051; 80053; 80307; 81001; 82009; 82140; 82330; 82803; 82805; 83605; 83690; 83735; 84100; 84145; 84443; 84484; 85025; 85378; 85730; 86140; 87040; 87086; 87635; 87804; 90935; 93005; 93306; 93970; 94640; 94660; 96365; 96375; 96376; 99284; 99291; C9113; J0692; J0696; J1644; J2060; J2270; J2310; J2920; J3370; J3490; J7050; P9047; Q4081; Q9967